=== PATIENT | female | born 1940 | race Caucasian/White ===

== ENCOUNTER 2017-07-03 16:40 | Inpatient (IN) | payer OTHER ==
[~2017-07-03] VITALS: Ht 160 cm; Wt 80.0 kg
[~2017-07-03 16:40] MED LIST: CLTP PO; CPR500 PO; DLN100 PO; FLV1 PO; MULT-506 PO; POTA-327 PO; PROM25TA PO; SERT25TA PO
--- NOTE | 2017-07-03 17:07 | EMERGENCY ROOM VISIT NOTE ---
History First contact with patient: 17:05 Chief Complaint: HIP PAIN Stated Complaint: FALL, HIP PAIN History of Present Illness The patient is a 76 year old female who presents to the Emergency Room with complaints of right hip pain Was in the garage and fell backwards upon poor balance while taking the two stairs up to her kitchen at ~2pm She denies prior dizziness, lightheadedness, SOB, CP, palpitations Upon falling, she felt immediate pain in her right hip, and was unable to get back up. She lay on the ground yelling for ~1 hour. The dragged herself over on the concrete, managed to open her door before yelling some more, at which point her neighbour heard her and called for help. She lives alone with her dog She denies LOC, but is unsure if she hit her head when she fell backwards. She denies head pain currently. 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 She also has bilateral knee arthritis, for this she was commenced on a prednisone taper yesterday Review of Systems See HPI for pertinent positives and negatives. A total of ten systems were reviewed and were otherwise negative. Past Medical/Surgical History Medical Problems: (1) Arthritis of both knees (2) Fracture of right hip (3) History of Guillain-[place] syndrome (4) Neuropathy involving both lower extremities Social History Smoking Status: Never Smoker Smokeless Tobacco Use: No Alcohol Use: none Drug Use: none Marital Status: Housing Status: lives alone Current/Historical Medications Scheduled Cholecalciferol (Vitamin D), 1 TAB PO DAILY Cranberry (Vaccinium Macrocarp (Cranberry), 1 TAB PO DAILY Cyanocobalamin (Vitamin B-12), 1 TAB PO DAILY Ferrous Sulfate (Iron), 1 TAB PO DAILY Potassium Chloride (Micro-K Ext Rel), 10 MEQ PO DAILY Prednisone (Prednisone), 20 MG PO DAILY Prednisone Tab (Prednisone), 30 MG PO DAILY Prednisone Tab (Prednisone), 10 MG PO DAILY Physical Exam Vital Signs Date Time Temp Pulse Resp B/P (MAP) Pulse Ox O2 Delivery O2 Flow Rate FiO2 07/03/17 19:58 92 20 119/67 95 Room Air 07/03/17 19:14 90 07/03/17 19:01 90 20 121/73 93 Room Air 07/03/17 16:52 36.8 87 20 130/89 95 Room Air Physical Exam GENERAL: alert, lying in bed, emotionally distressed, non-toxic HEAD: NC/AT EYES: PERRL, EOMI, normal conjunctiva NECK: supple, no nuchal rigidity, no adenopathy, non-tender LUNGS: Clear to auscultation. Normal chest wall mechanics, good air entry. No crepitations, crackles, or wheezes HEART: no murmurs, S1 and S2 normal CHEST: No reproducible tenderness. ABDOMEN: abdomen soft, non-tender, normo-active bowel sounds, no masses, no rebound or guarding. SKIN: Warm, pink, dry. No erythema, rashes, or bruising. UPPER EXTREMITIES: upper extremities are grossly normal. Strength 5/5 LOWER EXTREMITIES: No pitting edema. Calves non tender. Left leg WNL. Extreme pain/limited ability to lift right leg. Sensation in tact. Pedal pulses present NEURO: Alert, Ox3. No focal deficits. Normal sensorium, cranial nerves II-XII grossly intact, normal speech. PSYCH: Mood and affect appropriate. Medical Decision & Procedures ER Provider Diagnostic Interpretation: CT HEAD WITHOUT CONTRAST (CT) CLINICAL HISTORY: Head pain status post trauma COMPARISON STUDY: No previous studies for comparison. TECHNIQUE: Axial CT of the brain is performed from the vertex to the skull base. IV contrast was not administered for this examination. A dose lowering technique was utilized adhering to the principles of ALARA. CT DOSE: 623.48 mGy.cm FINDINGS: No intra or extra-axial mass lesions are visualized. There is no CT evidence of acute cortical infarction. There is no evidence of midline shift. There is no acute hemorrhage. No calvarial fractures are visualized. There are postsurgical changes of a left parietal craniotomy. There is left frontoparietal encephalomalacia at the vertex. There are patchy white matter hypodensities likely on a small vessel basis. There is no evidence of pathologic ventricular dilatation. Inflammatory changes are present within the sphenoid sinus. IMPRESSION: 1. Postsurgical changes of a left parietal craniotomy with subjacent encephalomalacia 2. Inflammatory changes within the sphenoid sinus 3. No acute intracranial findings CHEST ONE VIEW PORTABLE CLINICAL HISTORY: fall trauma COMPARISON STUDY: 12/29/2007 FINDINGS: Mild cardiomegaly. Several calcified granulomas as well as hilar nodes. No focal infiltrate. IMPRESSION: Chronic change. No acute process. PELVIS 1 OR 2 VIEW ROUTINE CLINICAL HISTORY: Fall trauma COMPARISON: None. DISCUSSION: Intertrochanteric fracture right hip. Slice appear migration right femoral shaft. No evidence of dislocation. Mild degenerative change of all additional bony structures. IMPRESSION: Intertrochanteric fracture right hip with slight superior migration right femoral shaft RIGHT FEMUR 2 VIEWS ROUTINE CLINICAL HISTORY: fall on r hip Right trauma COMPARISON: None. DISCUSSION: Intertrochanteric fracture right hip. Slice appear migration femoral shaft. No evidence for dislocation. The remainder the femur is unremarkable. Moderate degenerative change right knee. Moderate soft tissue edema IMPRESSION: Intertrochanteric fracture right hip with slight superior migration right femoral shaft Laboratory Results 07/03/17 18:51 Red Blood Count 3.75, Mean Corpuscular Volume 94.4, Mean Corpuscular Hemoglobin 31.5, Mean Corpuscular Hemoglobin Concent 33.3, Mean Platelet Volume 9.4, Neutrophils (%) (Auto) 88.6, Lymphocytes (%) (Auto) 6.2, Monocytes (%) (Auto) 4.6, Eosinophils (%) (Auto) 0.0, Basophils (%) (Auto) 0.2, Neutrophils # (Auto) 10.04, Lymphocytes # (Auto) 0.70, Monocytes # (Auto) 0.52, Eosinophils # (Auto) 0.00, Basophils # (Auto) 0.02 07/03/17 18:51 Test 07/03/17 18:51 White Blood Count 11.33 K/uL (4.8-10.8) Red Blood Count 3.75 M/uL (4.2-5.4) Hemoglobin 11.8 g/dL (12.0-16.0) Hematocrit 35.4 % (37-47) Mean Corpuscular Volume 94.4 fL (80-100) Mean Corpuscular Hemoglobin 31.5 pg (25-34) Mean Corpuscular Hemoglobin Concent 33.3 g/dl (32-36) Platelet Count 283 K/uL (130-400) Mean Platelet Volume 9.4 fL (7.4-10.4) Neutrophils (%) (Auto) 88.6 % Lymphocytes (%) (Auto) 6.2 % Monocytes (%) (Auto) 4.6 % Eosinophils (%) (Auto) 0.0 % Basophils (%) (Auto) 0.2 % Neutrophils # (Auto) 10.04 K/uL (1.4-6.5) Lymphocytes # (Auto) 0.70 K/uL (1.2-3.4) Monocytes # (Auto) 0.52 K/uL (0.11-0.59) Eosinophils # (Auto) 0.00 K/uL (0-0.5) Basophils # (Auto) 0.02 K/uL (0-0.2) RDW Standard Deviation 47.2 fL (36.4-46.3) RDW Coefficient of Variation 13.6 % (11.5-14.5) Immature Granulocyte % (Auto) 0.4 % Immature Granulocyte # (Auto) 0.05 K/uL (0.00-0.02) Prothrombin Time 10.2 SECONDS (9.0-12.0) Prothromb Time International Ratio 1.0 (0.9-1.1) Activated Partial Thromboplast Time 24.3 SECONDS (21.0-31.0) Partial Thromboplastin Ratio 0.9 Anion Gap 5.0 mmol/L (3-11) Est Creatinine Clear Calc Drug Dose 58.8 ml/min Estimated GFR () 82.3 Estimated GFR (Non- 71.0 BUN/Creatinine Ratio 17.4 (10-20) Calcium Level 8.6 mg/dl (8.5-10.1) Medications Administered Medications (Trade) Dose Ordered Sig/Nicanor Route Start Time Stop Time Status Last Admin Dose Admin Sodium Chloride 500 ml @ 75 mls/hr [id number] ONCE IV 07/03/17 17:25 07/04/17 00:04 07/03/17 18:01 75 MLS/HR Hydromorphone HCl (Dilaudid Inj) 0.5 mg Q20M PRN IV 07/03/17 17:30 07/17/17 17:29 07/03/17 19:11 0.5 MG Ondansetron HCl (Zofran Inj) 4 mg NOW ONCE IV 07/03/17 19:05 07/03/17 19:06 DC 07/03/17 19:11 4 MG Pantoprazole Sodium (Protonix Tab) 40 mg NOW STAT PO 07/03/17 21:14 8/10/17 21:15 DC 07/03/17 21:22 40 MG ECG Indication: other (trauma) Rate (beats per minute): 81 Rhythm: normal sinus Findings: nonspecific-ST abn (When compared with ECG of 29-DEC-2007 15:23, Nonspecific T wave abnormality now evident in Inferior leads), PVC ED Course 1707: The patient was evaluated in room C5. A complete history and physical exam was performed. 1725: Labs and imaging studies ordered. IV analgesia ordered. 1740: Patient reassessed. Distressed post movement required to get imaging. Had vomiting, and pain severe. Instructed nursing care to administer another dose of hydromorphone. Updated patient and daughter re: imaging results. 180: Spoke to Alvaro Carr. Will assess and admit. 1814: Reassessed patient. Patient feeling better. Sitting up in bed, more lively. Confirmed with patient previous following with/preference for orthopedics. Consult placed 1821: Spoke to Dr. Lyman, [facility]. Will assess for surgery. Medical Decision Prior records/ancillary studies reviewed. Triage Nursing notes reviewed. Additional history obtained from patient. The patient's history was concerning for traumatic injury Differential diagnosis: Etiologies such as fracture, dislocation, intra-abdominal, pneumothorax, intrathoracic , intracranial, neurologic, as well as other traumatic pathologies were entertained. Physical examination findings: As above. The patients vitals were within acceptable range. ER treatment provided: IV Normal Saline hydration, 1000 mL. IV Dilaudid + IV Zofran On reassessment the patient felt better. Vital signs were stable. Diagnostic interpretation by me: A 12 lead ECG revealed no emergent pathology. The labs revealed mildly elevated WBC, mild anemia. Coags and BMP WNL Imaging studies showed no acute intracranial findings, no acute chest pathology , but intertrochanteric fracture of right hip with slight superior migration of right femoral shaft Consultation: This appears to be consistent with traumatic fracture. By the evaluation outlined above, other etiologies such as intra-abdominal, pneumothorax, pulmonary contusion, hemothorax, intracranial, neurologic,as well as others were deemed relatively unlikely. [facility] Dr. Lyman, [facility]. The case was discussed and diagnostics were reviewed. The patient will be admitted and assessed further by both physicians. The patient and her daughter were informed about the findings as listed above. All questions were answered and they are pleased with management of care thus far. Impression Primary Impression: Fracture of right hip Departure Information Dispostion Being Evaluated By Hospitalist Condition FAIR Referrals Indu Ambrocio M.D. (PCP) Patient Instructions My [facility] Resident Tracking Resident Involvement: Resident Care Provided Care Provided: Adult ED
[2017-07-03] MEDS ORDERED: FERR1TAB23 PO (17:12)
[2017-07-03] MEDS ORDERED: PRED10TA PO (17:12)
[2017-07-03] MEDS ORDERED: POTA10CA28 PO (17:12)
[2017-07-03] MEDS ORDERED: CHOL100010 PO (17:12)
[2017-07-03] MEDS ORDERED: CRAN1TAB PO (17:12)
[2017-07-03] MEDS ORDERED: CYAN100T PO (17:12)
[2017-07-03] MEDS ORDERED: SODIUM CHLORIDE 0.9% 1000ML 500 ML IV ONE (17:25)
[2017-07-03] MEDS ORDERED: HYDROmorphone INJ 0.5 MG/0.5 ML SYR IV PRN (17:30)
[2017-07-03] MEDS ORDERED: ACETAMINOPHEN 500 MG TAB PO PRN (17:30)
[2017-07-03] MEDS: HYDROmorphone INJ 0.5 MG/0.5 ML SYR IV PRN ×2 (18:01→19:11)
--- NOTE | 2017-07-03 18:01 | EMERGENCY ROOM VISIT NOTE ---
ED Visit Note First contact with patient: 17:05 Resident Physician Supervision Note: I interviewed and examined the patient. Discussed with Dr. Katz and agree with findings and plan as documented in the note. Documented By: Willard Caputo Current/Historical Medications Scheduled Cholecalciferol (Vitamin D), 1 TAB PO DAILY Cranberry (Vaccinium Macrocarp (Cranberry), 1 TAB PO DAILY Cyanocobalamin (Vitamin B-12), 1 TAB PO DAILY Ferrous Sulfate (Iron), 1 TAB PO DAILY Potassium Chloride (Micro-K Ext Rel), 10 MEQ PO DAILY Prednisone (Prednisone), 20 MG PO DAILY Prednisone Tab (Prednisone), 30 MG PO DAILY Prednisone Tab (Prednisone), 10 MG PO DAILY Allergies Coded Allergies: Sulfa Drugs (Verified Allergy, Mild, 12/29/09) Vital Signs Date Time Temp Pulse Resp B/P (MAP) Pulse Ox O2 Delivery O2 Flow Rate FiO2 07/03/17 16:52 36.8 87 20 130/89 95 Room Air Laboratory Results Test 07/03/17 17:25 Departure Information Referrals Indu Ambrocio M.D. (PCP) Patient Instructions My [facility]
--- NOTE | 2017-07-03 18:31 | DIAGNOSTIC IMAGING REPORT ---
CT HEAD WITHOUT CONTRAST (CT) CLINICAL HISTORY: Head pain status post trauma COMPARISON STUDY: No previous studies for comparison. TECHNIQUE: Axial CT of the brain is performed from the vertex to the skull base. IV contrast was not administered for this examination. A dose lowering technique was utilized adhering to the principles of ALARA. CT DOSE: 623.48 mGy.cm FINDINGS: No intra or extra-axial mass lesions are visualized. There is no CT evidence of acute cortical infarction. There is no evidence of midline shift. There is no acute hemorrhage. No calvarial fractures are visualized. There are postsurgical changes of a left parietal craniotomy. There is left frontoparietal encephalomalacia at the vertex. There are patchy white matter hypodensities likely on a small vessel basis. There is no evidence of pathologic ventricular dilatation. Inflammatory changes are present within the sphenoid sinus. IMPRESSION: 1. Postsurgical changes of a left parietal craniotomy with subjacent encephalomalacia 2. Inflammatory changes within the sphenoid sinus 3. No acute intracranial findings Electronically signed by: Bimal Taylor M.D. 07/03/2017 6:29 PM Dictated Date/Time: 07/03/2017 6:27 PM
--- NOTE | 2017-07-03 18:54 | DIAGNOSTIC IMAGING REPORT ---
CHEST ONE VIEW PORTABLE CLINICAL HISTORY: fall trauma COMPARISON STUDY: 12/29/2007 FINDINGS: Mild cardiomegaly. Several calcified granulomas as well as hilar nodes. No focal infiltrate. IMPRESSION: Chronic change. No acute process. The above report was generated using voice recognition software. It may contain grammatical, syntax or spelling errors. Electronically signed by: Pratik Hines M.D. 07/03/2017 6:52 PM Dictated Date/Time: 07/03/2017 6:52 PM
--- NOTE | 2017-07-03 18:55 | DIAGNOSTIC IMAGING REPORT ---
RIGHT FEMUR 2 VIEWS ROUTINE CLINICAL HISTORY: fall on r hip Right trauma COMPARISON: None. DISCUSSION: Intertrochanteric fracture right hip. Slice appear migration femoral shaft. No evidence for dislocation. The remainder the femur is unremarkable. Moderate degenerative change right knee. Moderate soft tissue edema IMPRESSION: Intertrochanteric fracture right hip with slight superior migration right femoral shaft The above report was generated using voice recognition software. It may contain grammatical, syntax or spelling errors. Electronically signed by: Pratik Hines M.D. 07/03/2017 6:54 PM Dictated Date/Time: 07/03/2017 6:53 PM
--- NOTE | 2017-07-03 18:56 | DIAGNOSTIC IMAGING REPORT ---
PELVIS 1 OR 2 VIEW ROUTINE CLINICAL HISTORY: Fall trauma COMPARISON: None. DISCUSSION: Intertrochanteric fracture right hip. Slice appear migration right femoral shaft. No evidence of dislocation. Mild degenerative change of all additional bony structures. IMPRESSION: Intertrochanteric fracture right hip with slight superior migration right femoral shaft The above report was generated using voice recognition software. It may contain grammatical, syntax or spelling errors. Electronically signed by: Pratik Hines M.D. 07/03/2017 6:54 PM Dictated Date/Time: 07/03/2017 6:54 PM
[2017-07-03] MEDS ORDERED: ONDANSETRON INJ 2 MG/ML 2 ML VIAL IV ONE (19:05)
[2017-07-03 19:07] LABS: BASO % 0.2 %; BASO ABS # 0.02 K/uL (0-0.2); COMPLETE YES; HEMATOCRIT 35.4 % (37-47); IG% 0.4 %; LYMPH % 6.2 %; MEAN CELL VOLUME 94.4 fL (80-100); MEAN CORPUSCULAR HEMOGLOBIN 31.5 pg (25-34); MEAN CORPUSCULAR HGB CONC 33.3 g/dl (32-36); MEAN PLATELET VOLUME 9.4 fL (7.4-10.4); MONO % 4.6 %; NEUT % 88.6 %; PLATELET COUNT 283 K/uL (130-400); RED BLOOD COUNT 3.75 M/uL (4.2-5.4); WHITE BLOOD COUNT 11.33 K/uL (4.8-10.8)
[2017-07-03 19:24] LABS: PARTIAL THROMBOPLASTIN RATIO 0.9; PROTHROMBIN TIME (PATIENT) 10.2 SECONDS (9.0-12.0)
[2017-07-03 19:25] LABS: BUN/CREATININE RATIO 17.4 (10-20); CALCIUM 8.6 mg/dl (8.5-10.1); CREATININE 0.81 mg/dl (0.60-1.20)
[2017-07-03] MEDS ORDERED: ONDANSETRON INJ 2 MG/ML 2 ML VIAL IV PRN (20:30)
[2017-07-03] MEDS ORDERED: MoRPHine SULFATE 2 MG/ML CARP IV PRN (20:30)
[2017-07-03] MEDS ORDERED: POLYETHYLENE (MIRALAX) 17 GM PACK PO PRN (20:30)
[2017-07-03] MEDS ORDERED: BISACODYL 10 MG SUPP PR PRN (20:30)
[2017-07-03] MEDS ORDERED: SOD PHOSPHATE/SOD BIPHOSPHATE ENEMA 132 ML BTL PR PRN (20:30)
[2017-07-03] MEDS ORDERED: MAGNESIUM HYDROXIDE SUSP 30 ML UDC PO PRN (20:30)
[2017-07-03] MEDS ORDERED: NALOXONE HCL 0.4 MG/1 ML VIAL/CARP IV PRN (20:30)
[2017-07-03] MEDS: DOCUSATE SODIUM/SENNA 50/8.6MG TAB PO SCH (21:00)
[2017-07-03] MEDS ORDERED: PANTOprazole SOD 40 MG TAB PO STA (21:14)
[2017-07-03 21:36] VITALS: Ht 160 cm; Wt 80.0 kg
[2017-07-03 21:45] VITALS: BP 131/68; PULSE 92; TEMP 36.9; O2SAT 95
--- NOTE | 2017-07-03 21:57 | HISTORY & PHYSICAL EXAMINATION ---
DATE OF ADMISSION: 07/03/2017 PRIMARY CARE PHYSICIAN: Dr. Ambrocio CHIEF COMPLAINT: Status post mechanical fall with fracture of the right hip. HISTORY OF PRESENT COMPLAINT: She is a 76-year-old female without a significant past medical history. Apparently while getting out of her garage to the kitchen, she missed a step and she fell backwards, hitting her bottom and head to some extent. She was not able to get up from there and she was brought in by the ambulance. She was noted to have an intertrochanteric fracture of the right femur. From that point, she was admitted to the medical floor and ortho consultation was taken for probable surgery down the line. When asking questions, she denies to have any headache, any blurred vision, any palpitations, any numbness, tingling or any weakness involving any side of the body before the fall. No recent history of fever, chills or rigors. No cough or phlegm. No chest pain or palpitation. No abdominal pain, nausea or vomiting. She has a history of Guillain-[place] about 17 years back and from that she does have minor ambulatory dysfunction, but nothing significant. She does not have any shortness of breath for usual day-to-day activities. PAST MEDICAL HISTORY: Significant for osteoarthritis, iron deficiency anemia and remote history of epilepsy, but nothing is causing any problem. PAST SURGICAL HISTORY: Biopsy of the breast in 2000 for right breast carcinoma. FAMILY HISTORY: Significant in that her mom had diabetes. SOCIAL HISTORY: She is a . She lives alone. She does not smoke. She drinks very occasionally and she has been ambulant. ALLERGIES: TO SULFA DRUGS. MEDICATIONS: She has been on potassium chloride 10 mEq daily. She was started with prednisone reducing course for chronic back pain. Vitamin D [id number] 1 tablet daily, cranberry 1 tablet daily, vitamin B12 one tablet daily and ferrous sulfate [id number] 1 tablet daily. REVIEW OF SYSTEMS: Unremarkable except for those mentioned in the history of present complaint. PHYSICAL EXAMINATION: GENERAL: On examination in the Emergency Room, she was not having any acute distress. VITAL SIGNS: Temperature 36.8, pulse of 92, blood pressure 192/67 and saturation 95% on room air. HEENT: Unremarkable. NECK: Supple. No JVD, no bruit. CHEST: Clear to auscultation bilaterally. HEART: S1, S2 regular, no murmur. ABDOMEN: Soft, benign, nontender, no organomegaly. Bowel sounds present. EXTREMITIES: Negative for any edema. MUSCULOSKELETAL SYSTEM: Did not show any acute arthritis; but right lower extremity was not examined, any movement of the right hip causes pain. There is no significant deformity of the right lower extremities. CENTRAL NERVOUS SYSTEM: She is alert, awake, oriented x3 and no focal sensory and/or motor deficit appreciated. LABORATORY DATA: Noted today; white count was 11.3, H&H 11.8/35.4 and platelets was 283. Sodium 141, potassium 4.0, chloride 111, carbon dioxide 25, BUN 14, creatinine 0.81. Random glucose 140, calcium 8.6. PT/INR unremarkable. EKG; was in sinus rhythm, rate of 81 per minute, normal axis and no significant ST-T wave abnormalities. only one PVC noted. Chest x-ray; reported as chronic changes, but no acute process. X-ray of the femur; showed intertrochanteric fracture of the right hip with slight superior migration of right femoral shaft. CT of the head; post-surgical changes of the left parietal craniotomy with encephalomalacia, inflammatory changes within the sphenoid sinus. No acute intracranial finding. X-ray of the pelvis; intertrochanteric fracture of the right hip as mentioned earlier. IMPRESSION AND PLAN: 1. Intertrochanteric fracture of the right hip status post mechanical fall. The patient will be admitted to the medical floor. Dr. Fox the orthopedic surgeon was consulted; most likely she will be going for surgery tomorrow morning. There is no contraindication for surgery at this time. 2. Chronic back pain with recent exacerbation. She has been on prednisone, taper dose recently. We will hold prednisone right now and start following surgery. She does not have any acute symptoms at this time. 3. Osteoarthritis. She will have Tylenol for pain right now and she may need stronger pain medications including Percocet during this admission. 4. Gastrointestinal prophylaxis, Protonix. 5. Deep venous thrombosis prophylaxis with SCDs and further DVT prophylaxis will depend as per ortho. 6. Code status. She will be a full code. In my clinical judgment, the beneficiary meets criteria as per CMS for 2 midnights' stay in the hospital. MEGAN
[2017-07-03] MEDS: LACTATED RINGER'S 1000ML 1,000 ML IV SCH (22:11)
[2017-07-03] MEDS: OXYCODONE HCL IR 5 MG TAB (IMMEDIATE RELEASE) PO PRN (22:19)
[2017-07-03 22:33] LABS: URINE APPEARANCE CLEAR (CLEAR); URINE BILIRUBIN NEG (NEG); URINE COLOR YELLOW; URINE EPITHELIAL CELL AUTO >30 /lpf (0-5); URINE NITRITE POS (NEG); UROBILINOGEN NEG (NEG); ZZURINE CULT IF INDIC CATH YES
--- NOTE | 2017-07-03 22:35 | Anesthesiology Progress Note ---
Anesthesia Progress Note Date of Service Jul 03, 2017. Progress Notes Ms. Andersen is scheduled for a right hip troch nail 07/04/[address] Fox. She is allergic to sulfa. 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 At time of workup for GB, she was found to have a brain tumor and underwent a successful craniotomy with tumor resection (found to be benign). She only has minor ambulatory dysfunction currently. EKG showed SR with PVC's but otherwise normal. Labs WNL. Patient has MP 2 with full dentures. She was consented for GA vs SAB with sedation. While patient's with guillain-barre have undergone neuraxial anesthesia without adverse effects, I told patient ultimate decision regarding anesthetic will be made with anesthesia team assigned to her case tomorrow. All questions were answered.
[2017-07-03 22:36] LABS: MANUAL MICROSCOPIC REQUIRED? NO; REVIEW REQ? YES
[2017-07-03] MEDS ORDERED: ZOLPIDEM TARTRATE 5 MG TAB PO PRN (23:15)
[2017-07-04] VITALS (8 sets, daily range): BP systolic 101–123; BP diastolic 47–77; PULSE 80–88; TEMP 36.7–37.2; O2SAT 90–96
[2017-07-04] MEDS: OXYCODONE HCL IR 5 MG TAB (IMMEDIATE RELEASE) PO PRN ×2 (03:02→07:47)
[2017-07-04] MEDS ORDERED: CEFAZOLIN 2000 MG/60 ML D5W IV SCH (06:00)
[2017-07-04] MEDS ORDERED: CEFAZOLIN SOD 1000MG/55 ML D5W IV SCH (06:00)
[2017-07-04] MEDS ORDERED: CEFAZOLIN IV 3,000 MG in DEXTROSE 5% 50ML 50 ML IV SCH (06:00)
[2017-07-04 07:07] LABS: HEMATOCRIT 33.8 % (37-47); MEAN CELL VOLUME 95.2 fL (80-100); MEAN CORPUSCULAR HEMOGLOBIN 30.7 pg (25-34); MEAN CORPUSCULAR HGB CONC 32.2 g/dl (32-36); MEAN PLATELET VOLUME 9.4 fL (7.4-10.4); PLATELET COUNT 251 K/uL (130-400); RED BLOOD COUNT 3.55 M/uL (4.2-5.4); WHITE BLOOD COUNT 7.78 K/uL (4.8-10.8)
[2017-07-04 07:36] LABS: CREATININE 0.7 mg/dl (0.60-1.20)
[2017-07-04 07:37] LABS: BUN/CREATININE RATIO 16.7 (10-20); CALCIUM 8.3 mg/dl (8.5-10.1); POTASSIUM 3.8 mmol/L (3.5-5.1)
[2017-07-04] MEDS: FERROUS SULFATE 325 MG TAB PO SCH ×2 (08:00→09:00)
[2017-07-04] MEDS ORDERED: KETOROLAC TROMETHAMINE 15 MG/ML VIAL IV PRN (08:15)
[2017-07-04] MEDS: POTASSIUM CHLORIDE 10 MEQ TABCR PO SCH (09:00)
[2017-07-04] MEDS: PANTOprazole SOD 40 MG TAB PO SCH (09:00)
[2017-07-04] MEDS ORDERED: NON-FORMULARY MEDICATION (Cranberry (Vaccinium Macrocarp (Cranberry) 1 TAB) PO SCH (09:00)
[2017-07-04] MEDS ORDERED: NURSING VERBAL MED ORDER ONE (09:30)
--- NOTE | 2017-07-04 09:40 | CONSULTATION REPORT ---
DATE OF CONSULTATION: 07/04/2017 DATE OF CONSULTATION: 07/04/2017 REASON FOR CONSULT: Right hip pain. HISTORY OF PRESENT ILLNESS: The patient is a 76-year-old white female who states that she was walking into her garage with her dog when she ended up losing her balance and fell backwards onto her right side and buttock. She had immediate pain in her right hip and she was unable to ambulate and was very difficult trying to crawl. She states that she was trying to reach her phone and/or her garage door closer mechanic, but could not do so. She called for help for quite a long time of which she feels to be a little bit over an hour until someone found her. She was brought to the Emergency Room. She was seen by the staff and x-rays were taken and was found to have an intertrochanteric right hip fracture with subtrochanteric extension. She was admitted under medicine service and we have now been consulted to see her for her hip fracture. PAST MEDICAL HISTORY: Remote history of epilepsy with no recent seizures, breast carcinoma, low back pain, osteoarthritis of both knees, remote history of a Guillain-[place] syndrome approximately 17 years ago, history of benign brain tumor, mild ambulatory dysfunction, iron deficiency anemia. PAST SURGICAL HISTORY: Craniotomy in the past for benign tumor, biopsy right breast. FAMILY HISTORY: Diabetes mellitus. SOCIAL HISTORY: The patient is a , lives alone with family nearby. She does not use tobacco and uses alcohol rarely. ALLERGIES: SULFA DRUGS. HOME MEDICATIONS: Vitamin D 1 tab p.o. daily, cranberry 1 tab p.o. daily, vitamin B12 1 tab p.o. daily, iron sulfate 1 tab p.o. daily, Micro-K extended release 10 mEq p.o. daily, prednisone which sounds like Medrol Dosepak which was given to her recently and she states that she has only had 2 tablets out of the pack at this time for her arthritis in her knees. REVIEW OF SYSTEMS: As per admitting history and physical. PHYSICAL EXAMINATION: VITAL SIGNS: This morning temp 36.8, pulse 81, respirations 20, BP 118/70, pulse ox 93 on room air. GENERAL: The patient is a well-developed, well-nourished white female who is alert and oriented x3 in mild amount of distress due to right hip pain and also arthritic left knee pain. She is pleasant and cooperative and answers all questions appropriately. EXTREMITIES: Focusing on her right hip the right lower extremity is shortened and externally rotated compared to the left. No attempts were made to move the right hip due to fracture. She has some mild tenderness over the right knee which she attributes to arthritis of which she has in both knees. She has good ankle range of motion at this time and there is no noted ecchymosis noted on the right lower extremity. Left lower extremity essentially within normal limits. She has limited range of motion at this time due to left knee pain which she states is due to arthritis. She states she did not fall on the left knee and has been dealing with arthritis in her knees for some time, otherwise left hip is nontender. Left ankle is nontender and both have range of motion within normal limits. Upper extremities are benign at this time and are within normal limits for range of motion. They are nontender at the shoulders, elbows and wrists. NECK: Nontender on palpation and she has good range of motion of the neck at this time. She denies any thoracic or overt lumbar pain at this time. Distal pulses are equal bilaterally of the upper and lower extremities. There are no gross motor or sensory deficits seen at this time. ASSESSMENT: Right intertrochanteric hip fracture. PLAN: At this point in time, she will be added onto the surgical schedule for right trochanteric femoral nailing by Dr. Fox. I will discuss the possibility with Dr. Fox of doing a left knee injection with steroid to help alleviate her left knee pain which could detract from her physical therapy having the right hip fracture. She will be putting most of her weight on her left side and will be difficult with her left knee pain. She states that she has had injections of her knees in the past and the last time was in possibly February or March and that they do work for a few months. We will go ahead and get some x-rays of her knees at this time portable at the bedside and treat the osteoarthritis accordingly.
[2017-07-04] MEDS ORDERED: CYANOCOBALAMIN 500 MCG TAB (VIT B-12) PO ONE (10:00)
[2017-07-04] MEDS ORDERED: CHOLECALCIFEROL 1000 INTER.UNIT TAB PO ONE (10:00)
--- NOTE | 2017-07-04 10:13 | DIAGNOSTIC IMAGING REPORT ---
LEFT KNEE 1 OR 2 VIEWS ROUTINE CLINICAL HISTORY: Left Knee Pain pain COMPARISON: None. DISCUSSION: Considerable degenerative change all major joint compartments. Irregularity of the articular services on a degenerative basis. Mild reactive osteophytic change. No significant joint effusion. Cortical margins are intact. There is no evidence for soft tissue swelling. IMPRESSION: Severe degenerative change all major joint compartments. No acute bony abnormality. The above report was generated using voice recognition software. It may contain grammatical, syntax or spelling errors. Electronically signed by: Pratik Hines M.D. 07/04/2017 10:11 AM Dictated Date/Time: 07/04/2017 10:11 AM
--- NOTE | 2017-07-04 10:13 | DIAGNOSTIC IMAGING REPORT ---
RIGHT KNEE 1 OR 2 VIEWS ROUTINE CLINICAL HISTORY: Right knee pain COMPARISON: None. DISCUSSION: There are advanced osteoarthritic changes with marked narrowing of the medial joint compartment. There are no acute fractures. There are small dorsal patellar spurs. There is a mild varus deformity. IMPRESSION: 1. No acute fractures 2. Osteoarthritic changes with marked narrowing of the medial joint compartment Electronically signed by: Bimal Taylor M.D. 07/04/2017 10:11 AM Dictated Date/Time: 07/04/2017 10:10 AM
[2017-07-04] MEDS: LACTATED RINGER'S 1000ML 1,000 ML IV SCH (10:39)
--- NOTE | 2017-07-04 12:54 | History & Physical Bridge Note ---
H&P Re-Evaluation Bridge Note: I have examined the patient, reviewed the History & Physical and in the interval since the performance of the History & Physical I have noted the following changes of clinical significance: No changes noted
[2017-07-04] MEDS ORDERED: MIDAZOLAM HCL 1 MG/ML 2ML VIAL ONE (13:06)
[2017-07-04] MEDS ORDERED: FENTANYL CITRATE INJ 50 MCG/1 ML 2 ML VIAL ONE (13:06)
[2017-07-04] MEDS ORDERED: METHYLPREDNISOLONE ACETATE 80 MG/ML VIAL ONE (15:41)
[2017-07-04] MEDS ORDERED: BUPIVACAINE 0.5 % 5 MG/1 ML MPF 30ML VIAL ONE (15:41)
[2017-07-04] MEDS ORDERED: HYDROmorphone INJ 2 MG/ML SYR/VIAL IV PRN (16:00)
[2017-07-04] MEDS ORDERED: ONDANSETRON INJ 2 MG/ML 2 ML VIAL IV PRN (16:00)
[2017-07-04] MEDS ORDERED: LABETALOL HCL IV 5 MG/ML 20ML IV PRN (16:00)
[2017-07-04] MEDS ORDERED: ATROPINE SULFATE 0.1 MG/ML 5ML SYR IV PRN (16:00)
[2017-07-04] MEDS ORDERED: LIDOCAINE HCL 2% 2 ML VIAL (20MG/ML) ONE (16:43)
[2017-07-04] MEDS ORDERED: DEXAMETHASONE SOD INJ 4 MG/ML VIAL ONE (16:43)
[2017-07-04] MEDS ORDERED: PROPOFOL IV EMULSION 10 MG/ML 20 ML VIAL IV ONE (16:43)
[2017-07-04] MEDS ORDERED: EpHEDrine SULFATE 50MG/5ML SYR ONE (16:43)
[2017-07-04] MEDS ORDERED: ONDANSETRON INJ 2 MG/ML 2 ML VIAL ONE (16:43)
--- NOTE | 2017-07-04 17:46 | [facility] Operative Report ---
Operative Report Operative Date Jul 04, 2017. Pre-Operative Diagnosis Right intertrochanteric hip fracture Post-Operative Diagnosis Right intertrochanteric hip fracture Procedure(s) Performed Bilateral knee steriod injections, Right Hip intertrochanteric Femoral Nailing Surgeon Dr. Ortiz Fox Product Safety Coordinator Surgeon(s) Gentry Miller PA-C Estimated Blood Loss 200 Findings As above Specimens none per surgeon Drains none Anesthesia Gen. Complication(s) None Disposition Recovery Room / PACU Indications 76-year-old female who sustained a fall onto the right hip. X-ray demonstrated displaced intertrochanteric fracture. Given the nature the injury I recommended reduction internal fixation with intramedullary nail. Risks benefits alternatives to surgery were discussed and she wishes to proceed. Description of Procedure Risks benefits and alternatives of surgery including but not limited to infection, DVT, PE, pain, stiffness, need for surgery, damage to blood vessels, damage to nerves or risks of anesthesia, were discussed with the patient and her family and they wished to proceed. Patient was identified in the laterality was confirmed and marked. They received a preoperative antibiotic. The patient was transferred to the fracture table. The operative limb was placed in traction and the well leg was placed in a well leg rivera that was well-padded. The arms were well-padded and placed out of the way of the surgical field. I confirmed reduction of the fracture with fluoroscopy with the patient's fracture table and made adjustments to fracture table alignment is necessary to reduce the fracture appropriately. The hip was then prepped and draped in the usual standard manner with ChloraPrep. I made a longitudinal incision proximal to the greater trochanter. I sharply incised through the skin and then used Bovie electrocautery to achieve hemostasis. I incised through the fascia and then bluntly dissected down to the tip of the greater trochanter. Under fluoroscopic guidance I placed a guide pin into the greater trochanter and ensured proper placement on both AP and lateral fluoroscopy views. Once I was satisfied with the position of the guide. I advanced this distally. I then overreamed with the 17 mm proximal reamer. I then placed a Synthes trochanteric fixation nail into position. The size of the nail was an intermediate sized nail. Then I placed the guide arm onto the nail insertion device made a stab incision more distally and then placed the drill guide for the helical blade. I adjusted the position of the nail as necessary to ensure that the guidepin was center center in the femoral head. Once I was satisfied with the position of the pin advanced it to the appropriate position of the femoral head. I then measured and then reamed the lateral cortex and then reamed down into the femoral head. I then inserted a size [address] I then locked the set screw proximally and then compressed the fracture. Then through a stab incision I placed a interlocking screw through the drill guide. I confirmed hardware placement and maintenance of reduction on AP and lateral fluoroscopy views. Wounds were then thoroughly irrigated. The fascia was closed with interrupted #1 Vicryl suture. Subcutaneous tissues closed with interrupted 2-0 Vicryl suture and the skin with ubaldo. Sterile dressings applied. All needle and sponge counts were correct at the end of the procedure the patient was transferred to the PACU in stable condition without apparent complication. The PA-C was necessary for assistance with procedure for assistance in positioning, prepping, draping, retraction and closure. I attest to the content of the Intraoperative Record and any orders documented therein. Any exceptions are noted below.
--- NOTE | 2017-07-04 17:51 | DIAGNOSTIC IMAGING REPORT ---
RIGHT HIP OR FILMS CLINICAL HISTORY: RT TROCH NAIL Right. COMPARISON STUDY: Pelvis 07/03/2017. FLUOROSCOPY TIME: 1 minute and 40 seconds.. FINDINGS: 4 fluoroscopic spot images submitted. Patient is status post a short proximal femoral intramedullary marion with an interlocking femoral neck pin for internal fixation of the intertrochanteric fracture. The hardware appears intact. The alignment is near-anatomic. IMPRESSION: Fluoroscopy provided for internal fixation of a right intertrochanteric hip fracture. Electronically signed by: Allen Renner M.D. 07/04/2017 5:49 PM Dictated Date/Time: 07/04/2017 5:48 PM
[2017-07-04] MEDS ORDERED: BISACODYL 10 MG SUPP PR PRN (18:00)
[2017-07-04] MEDS ORDERED: SOD PHOSPHATE/SOD BIPHOSPHATE ENEMA 132 ML BTL PR PRN (18:00)
[2017-07-04] MEDS ORDERED: ACETAMINOPHEN 325 MG TAB PO PRN (18:00)
[2017-07-04] MEDS ORDERED: MAGNESIUM HYDROXIDE SUSP 30 ML UDC PO PRN (18:00)
[2017-07-04] MEDS ORDERED: OXYCODONE HCL IR 5 MG TAB (IMMEDIATE RELEASE) PO PRN ×2 (18:00)
--- NOTE | 2017-07-04 18:29 | Anesthesiology Progress Note ---
Anesthesia Post Op Note Date & Time Jul 04, 2017 at 18:28 Vital Signs Pain Intensity: 0 Vital Signs Past 12 Hours Date Time Temp Pulse Resp B/P (MAP) Pulse Ox O2 Delivery O2 Flow Rate FiO2 07/04/17 18:10 84 13 110/56 93 Nasal Cannula 4 07/04/17 18:00 85 16 105/83 93 Nasal Cannula 4 07/04/17 17:50 77 15 113/56 96 Oxymask 10 07/04/17 17:43 36.6 77 16 118/55 95 Oxymask 10 07/04/17 09:08 93 Room Air 07/04/17 07:44 36.8 81 20 118/70 (86) 93 Room Air 07/04/17 07:30 Room Air Notes Mental Status: alert / awake / arousable, participated in evaluation Pt Amnestic to Procedure: Yes Nausea / Vomiting: adequately controlled Pain: adequately controlled Airway Patency, RR, SpO2: stable & adequate BP & HR: stable & adequate Hydration State: stable & adequate Anesthetic Complications: no major complications apparent
--- NOTE | 2017-07-04 19:58 | Progress Note ---
Internal Med Progress Note Date of Service: Jul 04, 2017. Provider Documentation: SUBJECTIVE: had repair for rt hip fx today doing well has minimum pain no other discomfort OBJECTIVE: Vital Signs-as noted below Exam: General-no sign of distress Eyes-sclera non icteric ENT-NAD Neck-no JVD Lungs-CTA Heart-regular S1/s2 Abdomen-Soft, non tender Extremities-s/p rt hip fx repair / Neuro-no focal deficit Lab data as noted below. ASSESSMENT & PLAN: 1. Intertrochanteric fracture of the right hip status post mechanical fall. s/p ORIF POD # 1 recovering well pain well controlled GERD : cont , Protonix. UTI : urine culture E Coli started on Cipro will need 5 days tx full code DVT PROPHYLAXIS scd and teds moderate to high risk post hip surgery will need pharmacological anticoagulation once ok by ortho DISPOSITION will need rehab PT/OT ordered social service consulted for discharge planning Vital Signs: Date Time Temp Pulse Resp B/P (MAP) Pulse Ox O2 Delivery O2 Flow Rate FiO2 07/04/17 20:30 36.7 88 18 108/54 (72) 95 Nasal Cannula 4.0 07/04/17 19:30 36.8 80 16 123/77 (92) 96 Nasal Cannula 4.0 07/04/17 19:02 94 Nasal Cannula 4.0 07/04/17 18:55 36.8 84 18 107/47 (67) 94 Nasal Cannula 4.0 07/04/17 18:41 Nasal Cannula 4.0 07/04/17 18:25 36.8 80 16 117/61 96 Nasal Cannula 4 07/04/17 18:10 84 13 110/56 93 Nasal Cannula 4 07/04/17 18:00 85 16 105/83 93 Nasal Cannula 4 07/04/17 17:50 77 15 113/56 96 Oxymask 10 07/04/17 17:43 36.6 77 16 118/55 95 Oxymask 10 07/04/17 09:08 93 Room Air 07/04/17 07:44 36.8 81 20 118/70 (86) 93 Room Air 07/04/17 07:30 Room Air 07/03/17 21:45 Room Air 07/03/17 21:45 36.9 92 18 131/68 (89) 95 Room Air 07/03/17 21:37 87 20 116/67 93 Room Air 07/03/17 21:36 Room Air Lab Results: Results Past 24 Hours Test 07/03/17 22:23 07/04/17 06:45 Range/Units Urine Color YELLOW Urine Appearance CLEAR CLEAR Urine pH 5.0 4.5-7.5 Urine Specific [place] 1.020 1.000-1.030 Urine Protein NEG NEG Urine Glucose (UA) NEG NEG Urine Ketones NEG NEG Urine Occult Blood NEG NEG Urine Nitrite POS NEG Urine Bilirubin NEG NEG Urine Urobilinogen NEG NEG Urine Leukocyte Esterase SMALL NEG Urine WBC (Auto) 5-10 0-5 /hpf Urine RBC (Auto) 0-4 0-4 /hpf Urine Hyaline Casts (Auto) 1-5 0-5 /lpf Urine Epithelial Cells (Auto) >30 0-5 /lpf Urine Bacteria (Auto) 4+ NEG Urine Renal Epithelial Cells 0-5 /lpf White Blood Count 7.78 4.8-10.8 K/uL Red Blood Count 3.55 4.2-5.4 M/uL Hemoglobin 10.9 12.0-16.0 g/dL Hematocrit 33.8 37-47 % Mean Corpuscular Volume 95.2 80-100 fL Mean Corpuscular Hemoglobin 30.7 25-34 pg Mean Corpuscular Hemoglobin Concent 32.2 32-36 g/dl RDW Standard Deviation 47.4 36.4-46.3 fL RDW Coefficient of Variation 13.6 11.5-14.5 % Platelet Count 251 130-400 K/uL Mean Platelet Volume 9.4 7.4-10.4 fL Sodium Level 142 136-145 mmol/L Potassium Level 3.8 3.5-5.1 mmol/L Chloride Level 109 98-107 mmol/L Carbon Dioxide Level 27 21-32 mmol/L Anion Gap 6.0 3-11 mmol/L Blood Urea Nitrogen 12 7-18 mg/dl Creatinine 0.70 0.60-1.20 mg/dl Est Creatinine Clear Calc Drug Dose 69.5 ml/min Estimated GFR () 98.2 Estimated GFR (Non- 84.8 BUN/Creatinine Ratio 16.7 10-20 Random Glucose 105 70-99 mg/dl Calcium Level 8.3 8.5-10.1 mg/dl Magnesium Level 2.0 1.8-2.4 mg/dl Microbiology Results 07/03/17 Urine Culture - Preliminary, Resulted Escherichia Coli
[2017-07-04] MEDS: CIPROFLOXACIN / D5W 400 MG in PREMIXED IN D5W 200 ML IV SCH (20:49)
[2017-07-04] MEDS ORDERED: DOCUSATE SODIUM/SENNA 50/8.6MG TAB PO SCH (21:00)
[2017-07-04] MEDS: DOCUSATE SODIUM/SENNA 50/8.6MG TAB PO SCH (21:05)
[2017-07-05] MEDS: LACTATED RINGER'S 1000ML 1,000 ML IV SCH ×2 (00:35→13:36)
[2017-07-05 03:26] VITALS: BP 98/54; PULSE 75; TEMP 37.1; O2SAT 90
[2017-07-05] MEDS: CIPROFLOXACIN / D5W 400 MG in PREMIXED IN D5W 200 ML IV SCH ×2 (05:38→19:02)
[2017-07-05 07:17] LABS: HEMATOCRIT 31.5 % (37-47); MEAN CELL VOLUME 95.5 fL (80-100); MEAN CORPUSCULAR HEMOGLOBIN 30.9 pg (25-34); MEAN CORPUSCULAR HGB CONC 32.4 g/dl (32-36); MEAN PLATELET VOLUME 9.2 fL (7.4-10.4); PLATELET COUNT 215 K/uL (130-400); WHITE BLOOD COUNT 10.54 K/uL (4.8-10.8)
[2017-07-05 07:48] LABS: CALCIUM 8.2 mg/dl (8.5-10.1); CREATININE 0.81 mg/dl (0.60-1.20); POTASSIUM 3.8 mmol/L (3.5-5.1)
[2017-07-05 07:52] VITALS: BP 92/55; PULSE 81; TEMP 37.4; O2SAT 92
[2017-07-05] MEDS: PANTOprazole SOD 40 MG TAB PO SCH (09:00)
--- NOTE | 2017-07-05 09:03 | Orthopedic Progress Note ---
Orthopedic Progress Note Date of Service Jul 05, 2017. Subjective Post OP Day: 1 Reports: feeling well, pain controlled w PO medications, Denies: complaints, chest pain, SOB, nausea / vomiting, light headedness, calf pain Additional Notes: most of her pain in right leg is in the knee, not much c/o pain in hip region. Objective calves soft nontender, N/V intact, dressing C/D/I, A&O x3, toes mobile Date Time Temp Pulse Resp B/P (MAP) Pulse Ox O2 Delivery O2 Flow Rate FiO2 07/05/17 07:52 37.4 81 20 92/55 (67) 92 Room Air 07/05/17 03:26 37.1 75 16 98/54 (69) 90 Room Air 07/04/17 23:17 37.2 85 16 104/58 (73) 90 Room Air 07/04/17 23:15 Room Air 07/04/17 21:30 37.1 85 18 101/63 (76) 95 Nasal Cannula 4.0 07/04/17 20:30 36.7 88 18 108/54 (72) 95 Nasal Cannula 4.0 07/04/17 19:30 36.8 80 16 123/77 (92) 96 Nasal Cannula 4.0 07/04/17 19:02 94 Nasal Cannula 4.0 07/04/17 18:55 36.8 84 18 107/47 (67) 94 Nasal Cannula 4.0 07/04/17 18:41 Nasal Cannula 4.0 07/04/17 18:25 36.8 80 16 117/61 96 Nasal Cannula 4 07/04/17 18:10 84 13 110/56 93 Nasal Cannula 4 07/04/17 18:00 85 16 105/83 93 Nasal Cannula 4 07/04/17 17:50 77 15 113/56 96 Oxymask 10 07/04/17 17:43 36.6 77 16 118/55 95 Oxymask 10 07/04/17 09:08 93 Room Air Laboratory Results 24 Hours: Test 07/05/17 07:06 Hematocrit 31.5 % Hemoglobin 10.2 g/dL Assessment & Plan Assessment: POD #1 s/p Bilateral knee steriod injections, Right Hip intertrochanteric Femoral Nailing -pain well controlled GERD : on Protonix. UTI : urine culture E Coli currently on Cipro x 5 days DISPOSITION: will need rehab Discharge Planning Discharge Planning: rehab hospital DVT Prophylaxis: TEDs, SCDs Therapy: Physical Therapy
[2017-07-05] MEDS: FERROUS SULFATE 325 MG TAB PO SCH (09:12)
[2017-07-05] MEDS: POTASSIUM CHLORIDE 10 MEQ TABCR PO SCH (09:12)
[2017-07-05] MEDS: CYANOCOBALAMIN 500 MCG TAB (VIT B-12) PO SCH (09:13)
[2017-07-05] MEDS: CHOLECALCIFEROL 1000 INTER.UNIT TAB PO SCH (09:13)
[2017-07-05 10:48] VITALS: BP 114/65
[2017-07-05 15:22] VITALS: BP 123/71; PULSE 91; TEMP 37.1; O2SAT 87
[2017-07-05 16:30] VITALS: O2SAT 92
--- NOTE | 2017-07-05 18:47 | Progress Note ---
Internal Med Progress Note Date of Service: Jul 05, 2017. Provider Documentation: SUBJECTIVE: sitting up on chair pain in hip much better denies of any discomfort OBJECTIVE: Vital Signs-as noted below Exam: General-no sign of distress Eyes-sclera non icteric ENT-NAD Neck-no JVD Lungs-CTA Heart-regular S1/s2 Abdomen-Soft, non tender Extremities-s/p rt hip fx repair / Neuro-no focal deficit Lab data as noted below. ASSESSMENT & PLAN: 1. Intertrochanteric fracture of the right hip status post mechanical fall. s/p ORIF POD # 2 recovering well pain well controlled doing well in PT/OT will need rehab GERD : cont , Protonix. UTI : urine culture E Coli started on Cipro changed to PO will need 5 days tx full code DVT PROPHYLAXIS scd and teds moderate to high risk post hip surgery started on Sub q heparin DISPOSITION will need rehab PT/OT ordered pt prefers to go to [facility] consulted for discharge planning Vital Signs: Date Time Temp Pulse Resp B/P (MAP) Pulse Ox O2 Delivery O2 Flow Rate FiO2 07/05/17 16:30 92 Room Air 07/05/17 15:22 37.1 91 14 123/71 (88) 87 Room Air 07/05/17 10:48 114/65 (81) 07/05/17 07:52 37.4 81 20 92/55 (67) 92 Room Air 07/05/17 07:40 Room Air 07/05/17 03:26 37.1 75 16 98/54 (69) 90 Room Air 07/04/17 23:17 37.2 85 16 104/58 (73) 90 Room Air 07/04/17 23:15 Room Air 07/04/17 21:30 37.1 85 18 101/63 (76) 95 Nasal Cannula 4.0 07/04/17 20:30 36.7 88 18 108/54 (72) 95 Nasal Cannula 4.0 Lab Results: Results Past 24 Hours Test 07/05/17 07:06 Range/Units White Blood Count 10.54 4.8-10.8 K/uL Red Blood Count 3.30 4.2-5.4 M/uL Hemoglobin 10.2 12.0-16.0 g/dL Hematocrit 31.5 37-47 % Mean Corpuscular Volume 95.5 80-100 fL Mean Corpuscular Hemoglobin 30.9 25-34 pg Mean Corpuscular Hemoglobin Concent 32.4 32-36 g/dl RDW Standard Deviation 48.1 36.4-46.3 fL RDW Coefficient of Variation 13.9 11.5-14.5 % Platelet Count 215 130-400 K/uL Mean Platelet Volume 9.2 7.4-10.4 fL Sodium Level 140 136-145 mmol/L Potassium Level 3.8 3.5-5.1 mmol/L Chloride Level 105 98-107 mmol/L Carbon Dioxide Level 29 21-32 mmol/L Anion Gap 6.0 3-11 mmol/L Blood Urea Nitrogen 11 7-18 mg/dl Creatinine 0.81 0.60-1.20 mg/dl Est Creatinine Clear Calc Drug Dose 60.1 ml/min Estimated GFR () 82.3 Estimated GFR (Non- 71.0 BUN/Creatinine Ratio 13.0 10-20 Random Glucose 182 70-99 mg/dl Calcium Level 8.2 8.5-10.1 mg/dl
[2017-07-05] MEDS ORDERED: SENN8.6T7 PO (18:49)
[2017-07-05] MEDS ORDERED: RXC5 PO (18:49)
[2017-07-05] MEDS ORDERED: MRLP17X PO (18:49)
[2017-07-05] MEDS ORDERED: MOMLX PO (18:49)
--- NOTE | 2017-07-05 18:52 | Discharge Instructions ---
Discharge Instructions Date of Service Jul 05, 2017. Admission Reason for Admission: Fracture Of Right Hip Discharge Discharge Diagnosis / Problem: RIGHT HIP FRACTURE S/P FALL Discharge Goals Goal(s): Increase independence, Improve disease control, Diagnostic testing, Therapeutic intervention Activity Recommendations Activity Level: Assistance Required Therapies: Physical Therapy, Occupational Therapy Weightbearing Status: Right weightbearing (as tolerated) Lifting Limitations: no more than 5 pounds (ON RT SIDE FOR 2 WEEKS ) Shower/Bathe: no limitations . Additional Information Patient informed of condition: Yes Advance Directives: No DNR: No Level of Care: Acute Rehab Communicable Disease: Yes Prognosis: Stable [place] Catheter: No Instructions / Follow-Up Instructions / Follow-Up FOLLOW UP WITH FAMILY PHYSICIAN AFTER DISCHARGE FROM REHAB FOLLOW UP WITH ORTHOPEDICS IN 2 WEEKS Current Hospital Diet Patient's current hospital diet: Regular Diet Discharge Diet Recommended Diet: Regular Diet Procedures Procedures Performed: Bilateral knee steriod injections, Right Hip intertrochanteric Femoral Nailing Pending Studies Studies pending at discharge: no Medical Emergencies . Who to Call and When: Medical Emergencies: If at any time you feel your situation is an emergency, please call 911 immediately. . Non-Emergent Contact Non-Emergency issues call your: Primary Care Provider . . "Provider Documentation" section prepared by Jenny José. . Ged Instructor Recommendations Ged Instructor Recommendations: Ged Instructor Recommendations Date of Service Jul 07, 2017. Ged Instructor Recommendations [facility] DISCHARGE INSTRUCTIONS: HIP FRACTURE SELF CARE INSTRUCTIONS: A. You are to ambulate with a walker for approximately 6 weeks. B. You are WEIGHT BEARING TOLERATE on your operative lower extremity for at least 6 weeks. C. Wear low heeled shoes with non-slip soles D. Be sure that your floors are free of things that could trip you throw rugs, electrical cords, and small objects. Avoid wet and waxed floors, especially with crutches/walker/cane. E. Try to walk several times a day with rest periods between. F. You may shower 48 hours after surgery and get the incision area wet, but DO NOT soak or submerge incision area in water. (No baths, swimming pools, hot tubs ) G. You CAN shower with this on. If incision is leaking through the dressing, please call the office . H. Do NOT apply soap or any ointment/lotions directly over incision. I. You may use ice as needed to operative site. SPECIAL CARE INSTRUCTIONS: VERY IMPORTANT TO READ AND REVIEW A. You may be at risk for phlebitis or blood clots. a. Wear surgical stockings (SARA hose) for 2 weeks after surgery to improve circulation and reduce swelling. b. Take ASPIRIN 325 mg twice daily for 30 days c. If you are on Coumadin- you will have daily/weekly blood work to monitor your levels. This will be done by either your family physician/ bowling alley floors installer (if you are on Coumadin chronically) versus your orthopedic surgeon. Expect a phone call the day of or the day after your blood work is drawn to adjust your dose accordingly. B. There are a few signs you need to watch for after you are home. Call [facility] at [phone] if you experience any of the following: a. If you have a temperature of 101 degrees or higher. b. Sudden increase in pain in your hip not relieved by rest or pain medication. c. Any fluid or drainage from the incision; redness of the incision. d. Shortness of breath or chest pain. B. Please call [facility] at [phone] if you have any questions or concerns about your operation or recovery. C. Call your physician if: a. Temperature is greater than 101 degrees (F). b. Pain is not relieved by prescribed pain medications. c. Increase drainage or redness from incision. d. Unanswered questions or concerns. D. Pain Medication: a. You will be prescribed pain medication upon discharge that should last till your first post-operative appointment. b. If you experience nausea and/or skin rash, discontinue this medication and contact our office for an alternative medication. c. Caution- narcotic pain medication can cause constipation. FOLLOW UP VISIT: Please call [facility] at [phone] to schedule a follow up appointment 10-14 days from the date of your surgery date. Core Measure Problem Core Measures: None
[2017-07-05] MEDS: DOCUSATE SODIUM/SENNA 50/8.6MG TAB PO SCH (20:48)
[2017-07-05 23:40] VITALS: BP 106/64; PULSE 74; TEMP 36.9; O2SAT 91
--- NOTE | 2017-07-06 07:23 | Orthopedic Progress Note ---
Orthopedic Progress Note Date of Service Jul 06, 2017. Subjective Post OP Day: 2 Reports: feeling well, pain controlled w PO medications, Denies: complaints, chest pain, SOB, nausea / vomiting, light headedness, calf pain Additional Notes: no noticeable improvement from cortisone injections. Objective calves soft nontender, N/V intact, incision C/D/I, A&O x3, toes mobile Date Time Temp Pulse Resp B/P (MAP) Pulse Ox O2 Delivery O2 Flow Rate FiO2 07/05/17 23:40 36.9 74 16 106/64 (78) 91 Room Air 07/05/17 23:20 Room Air 07/05/17 16:30 92 Room Air 07/05/17 15:22 37.1 91 14 123/71 (88) 87 Room Air 07/05/17 10:48 114/65 (81) 07/05/17 07:52 37.4 81 20 92/55 (67) 92 Room Air 07/05/17 07:40 Room Air Assessment & Plan Assessment: POD #2 s/p Right Hip intertrochanteric Femoral Nailing -pain well controlled Bilateral knee OA- given bilateral cortisone injections, continue to observe GERD : on Protonix. UTI : urine culture E Coli currently on Cipro x 5 days DISPOSITION: will need rehab Discharge Planning Discharge Planning: rehab hospital DVT Prophylaxis: Rima Calderon Therapy: Physical Therapy
[2017-07-06 07:50] VITALS: BP 122/64; PULSE 100; TEMP 36.8; O2SAT 90
[2017-07-06] MEDS: CIPROFLOXACIN 250 MG TAB PO SCH ×2 (09:03→20:45)
[2017-07-06] MEDS: POTASSIUM CHLORIDE 10 MEQ TABCR PO SCH (09:03)
[2017-07-06] MEDS: PANTOprazole SOD 40 MG TAB PO SCH (09:03)
[2017-07-06] MEDS: FERROUS SULFATE 325 MG TAB PO SCH (09:03)
[2017-07-06] MEDS: CYANOCOBALAMIN 500 MCG TAB (VIT B-12) PO SCH (09:03)
[2017-07-06] MEDS: CHOLECALCIFEROL 1000 INTER.UNIT TAB PO SCH (09:04)
[2017-07-06 15:35] VITALS: BP 111/63; PULSE 73; TEMP 36.8; O2SAT 91
[2017-07-06 16:30] VITALS: O2SAT 92
--- NOTE | 2017-07-06 16:51 | Progress Note ---
Internal Med Progress Note Date of Service: Jul 06, 2017. Provider Documentation: SUBJECTIVE: doing fairly well minimum pain in rt hip area , able to walk on hallway with walker wants to know if she will be able to return home instead of going to rehab OBJECTIVE: Vital Signs-as noted below Exam: General-no sign of distress Eyes-sclera non icteric ENT-NAD Neck-no JVD Lungs-CTA Heart-regular S1/s2 Abdomen-Soft, non tender Extremities-s/p rt hip repair , ubaldo on right area intact , no drainage Neuro-no focal deficit Lab data as noted below. ASSESSMENT & PLAN: 1. Intertrochanteric fracture of the right hip status post mechanical fall. s/p ORIF POD # 3 recovering well pain well controlled doing well in PT/OT pt wondering of returning home with home PT upon discharge GERD : cont , Protonix. UTI : urine culture E Coli started on Cipro changed to PO will need 5 days tx full code DVT PROPHYLAXIS scd and teds moderate to high risk post hip surgery started on Sub q heparin DISPOSITION pt prefers to return home with home health and family support will d/w daughter possible discharge tomorrow Medicine follow up with Dr Ambrocio Vital Signs: Date Time Temp Pulse Resp B/P (MAP) Pulse Ox O2 Delivery O2 Flow Rate FiO2 07/06/17 15:35 36.8 73 18 111/63 (79) 91 Room Air 07/06/17 09:17 Room Air 07/06/17 07:50 36.8 100 18 122/64 (83) 90 Room Air 07/05/17 23:40 36.9 74 16 106/64 (78) 91 Room Air 07/05/17 23:20 Room Air
[2017-07-06] MEDS: DOCUSATE SODIUM/SENNA 50/8.6MG TAB PO SCH (20:46)
[2017-07-06 23:40] VITALS: O2SAT 92
[2017-07-07] VITALS: BP 107/65; PULSE 67; TEMP 36.9; O2SAT 92
[2017-07-07 07:17] VITALS: BP 117/71; PULSE 76; TEMP 36.9; O2SAT 92
--- NOTE | 2017-07-07 07:46 | Orthopedic Progress Note ---
Orthopedic Progress Note Date of Service Jul 07, 2017. Subjective Post OP Day: 3 Reports: feeling well, pain controlled w PO medications, Denies: complaints, chest pain, SOB, nausea / vomiting, light headedness, calf pain Objective calves soft nontender, N/V intact, capillary refill less than 2 sec., incision C /D/I, A&O x3, toes mobile Date Time Temp Pulse Resp B/P (MAP) Pulse Ox O2 Delivery O2 Flow Rate FiO2 07/07/17 00:00 36.9 67 16 107/65 (79) 92 Room Air 07/06/17 23:40 92 Room Air 07/06/17 16:30 92 Room Air 07/06/17 15:35 36.8 73 18 111/63 (79) 91 Room Air 07/06/17 09:17 Room Air 07/06/17 07:50 36.8 100 18 122/64 (83) 90 Room Air Assessment & Plan Assessment: POD #3 s/p Right Hip intertrochanteric Femoral Nailing -pain well controlled -Follow up in office 10-14 days. Bilateral knee OA- given bilateral cortisone injections, continue to observe GERD : on Protonix. UTI : urine culture E Coli currently on Cipro x 5 days DISPOSITION: will need rehab She is cleared from an Orthopedic standpoint. We will sign off at this time. If there is any questions please reconsult. Discharge Planning Discharge Planning: rehab hospital DVT Prophylaxis: Rima Calderon Therapy: Physical Therapy
--- NOTE | 2017-07-07 07:49 | Consultant Recommendations ---
Galvanizing Pot Runner Recommendations Date of Service Jul 07, 2017. Galvanizing Pot Runner Recommendations [facility] [place]: HIP FRACTURE SELF CARE INSTRUCTIONS: A. You are to ambulate with a walker for approximately 6 weeks. B. You are WEIGHT BEARING TOLERATE on your operative lower extremity for at least 6 weeks. C. Wear low heeled shoes with non-slip soles D. Be sure that your floors are free of things that could trip you throw rugs, electrical cords, and small objects. Avoid wet and waxed floors, especially with crutches/walker/cane. E. Try to walk several times a day with rest periods between. F. You may shower 48 hours after surgery and get the incision area wet, but DO NOT soak or submerge incision area in water. (No baths, swimming pools, hot tubs ) G. You CAN shower with this on. If incision is leaking through the dressing, please call the office . H. Do NOT apply soap or any ointment/lotions directly over incision. I. You may use ice as needed to operative site. SPECIAL CARE INSTRUCTIONS: VERY IMPORTANT TO READ AND REVIEW A. You may be at risk for phlebitis or blood clots. a. Wear surgical stockings (SARA hose) for 2 weeks after surgery to improve circulation and reduce swelling. b. Take ASPIRIN 325 mg twice daily for 30 days c. If you are on Coumadin- you will have daily/weekly blood work to monitor your levels. This will be done by either your family physician/ office services representative (if you are on Coumadin chronically) versus your orthopedic surgeon. Expect a phone call the day of or the day after your blood work is drawn to adjust your dose accordingly. B. There are a few signs you need to watch for after you are home. Call [facility] at [phone] if you experience any of the following: a. If you have a temperature of 101 degrees or higher. b. Sudden increase in pain in your hip not relieved by rest or pain medication. c. Any fluid or drainage from the incision; redness of the incision. d. Shortness of breath or chest pain. B. Please call [facility] at [phone] if you have any questions or concerns about your operation or recovery. C. Call your physician if: a. Temperature is greater than 101 degrees (F). b. Pain is not relieved by prescribed pain medications. c. Increase drainage or redness from incision. d. Unanswered questions or concerns. D. Pain Medication: a. You will be prescribed pain medication upon discharge that should last till your first post-operative appointment. b. If you experience nausea and/or skin rash, discontinue this medication and contact our office for an alternative medication. c. Caution- narcotic pain medication can cause constipation. FOLLOW UP VISIT: Please call [facility] at [phone] to schedule a follow up appointment 10-14 days from the date of your surgery date.
[2017-07-07] MEDS: CIPROFLOXACIN 250 MG TAB PO SCH ×2 (09:20→20:44)
[2017-07-07] MEDS: CHOLECALCIFEROL 1000 INTER.UNIT TAB PO SCH (09:20)
[2017-07-07] MEDS: FERROUS SULFATE 325 MG TAB PO SCH (09:20)
[2017-07-07] MEDS: CYANOCOBALAMIN 500 MCG TAB (VIT B-12) PO SCH (09:20)
[2017-07-07] MEDS: PANTOprazole SOD 40 MG TAB PO SCH (09:20)
[2017-07-07] MEDS: POTASSIUM CHLORIDE 10 MEQ TABCR PO SCH (09:20)
--- NOTE | 2017-07-07 10:53 | Anesthesiology Progress Note ---
Anesthesia Post Op Note Date & Time Jul 07, 2017 at 10:53 Vital Signs Pain Intensity: 0.0 Vital Signs Past 12 Hours Date Time Temp Pulse Resp B/P (MAP) Pulse Ox O2 Delivery O2 Flow Rate FiO2 07/07/17 07:53 Room Air 07/07/17 07:17 36.9 76 17 117/71 (86) 92 Room Air 07/07/17 00:00 36.9 67 16 107/65 (79) 92 Room Air 07/06/17 23:40 92 Room Air Notes Mental Status: alert / awake / arousable, participated in evaluation Pt Amnestic to Procedure: Yes Nausea / Vomiting: adequately controlled Pain: adequately controlled Airway Patency, RR, SpO2: stable & adequate BP & HR: stable & adequate Hydration State: stable & adequate Anesthetic Complications: no major complications apparent
[2017-07-07] MEDS ORDERED: ASPEC325 PO (12:19)
[2017-07-07] MEDS ORDERED: CPR250 PO (12:20)
--- NOTE | 2017-07-07 13:28 | Orthopedic Progress Note ---
Orthopedic Progress Note Date of Service Jul 07, 2017. Subjective Post OP Day: 3 Reports: feeling well, Denies: complaints Additional Notes: CM present and talking to patient about SNF's. Pt somewhat adamant about going. She is ambulating 26' in PT. Discussed that we would like to see her ambulating further distance before going home. She talked about going to her daughter's house but would possibly be alone a good portion of the time. After discussion with CM, she is agreeable to [facility]. Objective calves soft nontender, N/V intact, incision C/D/I, A&O x3, toes mobile Date Time Temp Pulse Resp B/P (MAP) Pulse Ox O2 Delivery O2 Flow Rate FiO2 07/07/17 07:53 Room Air 07/07/17 07:17 36.9 76 17 117/71 (86) 92 Room Air 07/07/17 00:00 36.9 67 16 107/65 (79) 92 Room Air 07/06/17 23:40 92 Room Air 07/06/17 16:30 92 Room Air 07/06/17 15:35 36.8 73 18 111/63 (79) 91 Room Air Assessment & Plan Assessment: POD #3 s/p Right Hip intertrochanteric Femoral Nailing -pain well controlled -Follow up in office 10-14 days. Bilateral knee OA- given bilateral cortisone injections, continue to observe GERD : on Protonix. UTI : urine culture E Coli currently on Cipro x 5 days DISPOSITION: [facility] when ok with Med Service She is cleared from an Orthopedic standpoint. We will sign off at this time. If there is any questions please reconsult. Discharge Planning Discharge Planning: rehab hospital DVT Prophylaxis: Rima Calderon Therapy: Physical Therapy
[2017-07-07 15:19] VITALS: BP 104/62; PULSE 86; TEMP 37.1; O2SAT 92
--- NOTE | 2017-07-07 18:31 | Progress Note ---
Internal Med Progress Note Date of Service: Jul 07, 2017. Provider Documentation: SUBJECTIVE: no pain on rt hip fracture site able to walk with walker willing to go to rehab -[facility] OBJECTIVE: Vital Signs-as noted below Exam: General-no sign of distress Eyes-sclera non icteric ENT-NAD Neck-no JVD Lungs-CTA Heart-regular S1/s2 Abdomen-Soft, non tender Extremities-s/p rt hip repair , ubaldo on right area intact , no drainage Neuro-no focal deficit Lab data as noted below. ASSESSMENT & PLAN: 1. Intertrochanteric fracture of the right hip status post mechanical fall. s/p ORIF POD # 4 recovering well pain well controlled doing well in PT/OT GERD : cont , Protonix. UTI : urine culture E Coli started on Cipro ( Day # 4 ) changed to PO will need 5 days tx full code DVT PROPHYLAXIS scd and teds moderate to high risk post hip surgery started on Sub q heparin DISPOSITION will need rehab referral made for [facility] possible transfer tomorrow Daughter will provide transportation Vital Signs: Date Time Temp Pulse Resp B/P (MAP) Pulse Ox O2 Delivery O2 Flow Rate FiO2 07/07/17 15:19 37.1 86 18 104/62 (76) 92 Room Air 07/07/17 15:00 Room Air 07/07/17 07:53 Room Air 07/07/17 07:17 36.9 76 17 117/71 (86) 92 Room Air 07/07/17 00:00 36.9 67 16 107/65 (79) 92 Room Air 07/06/17 23:40 92 Room Air
[2017-07-07] MEDS: DOCUSATE SODIUM/SENNA 50/8.6MG TAB PO SCH (20:44)
[2017-07-07 23:30] VITALS: BP 122/73; PULSE 82; TEMP 36.9; O2SAT 92
[2017-07-08 07:36] VITALS: BP 106/68; PULSE 80; TEMP 37; O2SAT 91
[2017-07-08] MEDS: POTASSIUM CHLORIDE 10 MEQ TABCR PO SCH (09:15)
[2017-07-08] MEDS: CIPROFLOXACIN 250 MG TAB PO SCH (09:16)
[2017-07-08] MEDS: FERROUS SULFATE 325 MG TAB PO SCH (09:16)
[2017-07-08] MEDS: CYANOCOBALAMIN 500 MCG TAB (VIT B-12) PO SCH (09:16)
[2017-07-08] MEDS: PANTOprazole SOD 40 MG TAB PO SCH (09:16)
[2017-07-08] MEDS: CHOLECALCIFEROL 1000 INTER.UNIT TAB PO SCH (09:17)
[2017-07-08 09:50] VITALS: O2SAT 91
--- NOTE | 2017-07-08 13:43 | Progress Note ---
Subjective Date of Service: Jul 08, 2017. Subjective Pt evaluation today including: conversation w/ patient, physical exam, lab review, review of studies, review of inpatient medication list Saw/examined the patient in room 386 Doing well, denies any pain, no other issues to note eager to get out of the hospital; agreeable to SNF Review of Systems Constitutional: No fever, No chills Musculoskeletal: + joint pain (controlled) Heme: No abnormal bleeding/bruising (bruising around R hip) Medications Current Inpatient Medications Medications (Trade) Dose Ordered Sig/Nicanor Route Start Time Stop Time Status Last Admin Dose Admin Ondansetron HCl (Zofran Inj) 4 mg Q6H PRN IV 07/03/17 20:30 08/02/17 20:29 Morphine Sulfate (MoRPHine SULFATE INJ) 1 mg Q2H PRN IV 07/03/17 20:30 07/17/17 20:29 07/04/17 09:29 1 MG Naloxone HCl (Narcan Inj) 0.1 mg PRN PRN IV 07/03/17 20:30 08/02/17 20:29 Senna/Docusate Sodium (Senokot S Tab) 2 tab HS PO 07/03/17 21:00 08/02/17 20:59 07/06/17 20:46 2 TAB Polyethylene (Miralax Powder Packet) 17 gm DAILY PRN PO 07/03/17 20:30 08/02/17 20:29 Magnesium Hydroxide (Milk Of Magnesia Susp) 30 ml DAILY PRN PO 07/03/17 20:30 08/02/17 20:29 Bisacodyl (Dulcolax Supp) 10 mg DAILY PRN HI 07/03/17 20:30 08/02/17 20:29 Potassium Chloride (Klor-Con M10) 10 meq DAILY PO 07/04/17 09:00 08/03/17 08:59 07/08/17 09:15 10 MEQ Ferrous Sulfate (Feosol Tab) 325 mg DAILY PO 07/04/17 08:00 08/03/17 07:59 07/08/17 09:16 325 MG Pantoprazole Sodium (Protonix Tab) 40 mg QAM PO 07/04/17 09:00 08/03/17 08:59 07/08/17 09:16 40 MG Zolpidem Tartrate (Ambien Tab) 5 mg HS PRN PO 07/03/17 23:15 08/02/17 23:14 07/03/17 23:22 5 MG Cyanocobalamin (Vitamin B-12 Tab) 1,000 mcg DAILY PO 07/05/17 09:00 08/04/17 08:59 07/08/17 09:16 1,000 MCG Cholecalciferol (Vitamin D Tab) 1,000 inter.unit DAILY PO 07/05/17 09:00 08/04/17 08:59 07/08/17 09:17 1,000 INTER.UNIT Acetaminophen (Tylenol Tab) 650 mg Q6H PRN PO 07/04/17 18:00 08/03/17 17:59 Oxycodone HCl (Roxicodone Immediate Rel Tab) 5 mg Q4H PRN PO 07/04/17 18:00 07/18/17 17:59 Oxycodone HCl (Roxicodone Immediate Rel Tab) 10 mg Q4H PRN PO 07/04/17 18:00 07/18/17 17:59 07/05/17 06:09 10 MG Sodium Biphosphate/ Sodium Phosphate (Fleet Enema) 132 ml ONE PRN HI 07/04/17 18:00 08/03/17 17:59 Ciprofloxacin (Ciprofloxacin Tab) 500 mg Q12 PO 07/06/17 09:00 07/11/17 08:59 07/08/17 09:16 500 MG Objective Vital Signs Date Time Temp Pulse Resp B/P (MAP) Pulse Ox O2 Delivery O2 Flow Rate FiO2 07/08/17 09:50 91 Room Air 07/08/17 08:05 Room Air 07/08/17 07:36 37.0 80 20 106/68 (81) 91 Room Air 07/07/17 23:35 Room Air 07/07/17 23:30 36.9 82 16 122/73 (89) 92 Room Air 07/07/17 15:19 37.1 86 18 104/62 (76) 92 Room Air 07/07/17 15:00 Room Air Physical Exam General Appearance: no apparent distress ENT: hearing grossly normal Respiratory/Chest: chest non-tender, lungs clear, normal breath sounds, no respiratory distress, no accessory muscle use Cardiovascular: regular rate, rhythm, no edema, no murmur Abdomen: normal bowel sounds, non tender, soft Extremities: normal inspection, no pedal edema Neurologic/Psychiatric: no motor/sensory deficits, alert, normal mood/affect Assessment and Plan This is a 76 year old female with no significant PMH presented due to a mechanical fall and R hip fracture R Hip Fracture secondary to Mechanical Fall s/p Intratrochanteric Nailing doing well post-operatively ambulating with walker no significant pain No other issues to note PT/OT d/c to SNF UTI E. coli grown on culture completed course of Cipro DVT ppx as per ortho; full dose aspirin FULL CODE
--- NOTE | 2017-07-08 13:44 | Discharge Summary ---
Discharge Summary Date of Service Jul 08, 2017. Discharge Summary Admission Date: Jul 03, 2017 at 21:21 Discharge Date: Jul 07, 2017 Discharge Disposition: halfway facility Principal Diagnosis: R Hip fracture s/p repair Urinary Tract Infection Medication Reconciliation New Medications: Aspirin (Aspirin) 325 Mg Ectab 1 TAB PO BID for 30 Days, #60 Magnesium Hydroxide (Milk of Magnesia) 30 Ml Susp 30 ML PO DAILY PRN for Constipation for 30 Days Oxycodone HCl (Oxycodone HCl) 5 Mg Tab 5 MG PO Q4H PRN for Moderate Pain (pain scale 4-6), #10 TAB Polyethylene (Miralax) 17 Gm Pow 17 GM PO DAILY PRN for Constipation, #30 Sennosides-Docusate Sodium (Senokot S) 1 Tab Tab 2 TAB PO HS, #30 TAB Continued Medications: Cholecalciferol (Vitamin D) Unknown Strength Tab 1 TAB PO DAILY Cranberry (Vaccinium Macrocarp (Cranberry) Unknown Strength Tab 1 TAB PO DAILY Cyanocobalamin (Vitamin B-12) Unknown Strength Tab 1 TAB PO DAILY Ferrous Sulfate (Iron) Unknown Strength Tab 1 TAB PO DAILY Potassium Chloride (Micro-K Ext Rel) 10 Meq Capcr 10 MEQ PO DAILY Discontinued Medications: Prednisone (Prednisone) 10 Mg Tab 20 MG PO DAILY X 3 DAYS Prednisone Tab (Prednisone) 10 Mg Tab 30 MG PO DAILY X 3 DAYS Prednisone Tab (Prednisone) 10 Mg Tab 10 MG PO DAILY X 5 DAYS Admission Information Physical Exam (per Admitting): DATE OF ADMISSION: 07/03/2017 PRIMARY CARE PHYSICIAN: Dr. Ambrocio CHIEF COMPLAINT: Status post mechanical fall with fracture of the right hip. HISTORY OF PRESENT COMPLAINT: She is a 76-year-old female without a significant past medical history. Apparently while getting out of her garage to the kitchen, she missed a step and she fell backwards, hitting her bottom and head to some extent. She was not able to get up from there and she was brought in by the ambulance. She was noted to have an intertrochanteric fracture of the right femur. From that point, she was admitted to the medical floor and ortho consultation was taken for probable surgery down the line. When asking questions, she denies to have any headache, any blurred vision, any palpitations, any numbness, tingling or any weakness involving any side of the body before the fall. No recent history of fever, chills or rigors. No cough or phlegm. No chest pain or palpitation. No abdominal pain, nausea or vomiting. 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 She does not have any shortness of breath for usual day-to-day activities. PAST MEDICAL HISTORY: Significant for osteoarthritis, iron deficiency anemia and remote history of epilepsy, but nothing is causing any problem. PAST SURGICAL HISTORY: Biopsy of the breast in 2000 for right breast carcinoma. FAMILY HISTORY: Significant in that her mom had diabetes. SOCIAL HISTORY: She is a . She lives alone. She does not smoke. She drinks very occasionally and she has been ambulant. ALLERGIES: TO SULFA DRUGS. MEDICATIONS: She has been on potassium chloride 10 mEq daily. She was started with prednisone reducing course for chronic back pain. Vitamin D [id number] 1 tablet daily, cranberry 1 tablet daily, vitamin B12 one tablet daily and ferrous sulfate [id number] 1 tablet daily. REVIEW OF SYSTEMS: Unremarkable except for those mentioned in the history of present complaint. PHYSICAL EXAMINATION: GENERAL: On examination in the Emergency Room, she was not having any acute distress. VITAL SIGNS: Temperature 36.8, pulse of 92, blood pressure 192/67 and saturation 95% on room air. HEENT: Unremarkable. NECK: Supple. No JVD, no bruit. CHEST: Clear to auscultation bilaterally. HEART: S1, S2 regular, no murmur. ABDOMEN: Soft, benign, nontender, no organomegaly. Bowel sounds present. EXTREMITIES: Negative for any edema. MUSCULOSKELETAL SYSTEM: Did not show any acute arthritis; but right lower extremity was not examined, any movement of the right hip causes pain. There is no significant deformity of the right lower extremities. CENTRAL NERVOUS SYSTEM: She is alert, awake, oriented x3 and no focal sensory and/or motor deficit appreciated. LABORATORY DATA: Noted today; white count was 11.3, H&H 11.8/35.4 and platelets was 283. Sodium 141, potassium 4.0, chloride 111, carbon dioxide 25, BUN 14, creatinine 0.81. Random glucose 140, calcium 8.6. PT/INR unremarkable. EKG; was in sinus rhythm, rate of 81 per minute, normal axis and no significant ST-T wave abnormalities. only one PVC noted. Chest x-ray; reported as chronic changes, but no acute process. X-ray of the femur; showed intertrochanteric fracture of the right hip with slight superior migration of right femoral shaft. CT of the head; post-surgical changes of the left parietal craniotomy with encephalomalacia, inflammatory changes within the sphenoid sinus. No acute intracranial finding. X-ray of the pelvis; intertrochanteric fracture of the right hip as mentioned earlier. IMPRESSION AND PLAN: 1. Intertrochanteric fracture of the right hip status post mechanical fall. The patient will be admitted to the medical floor. Dr. Fox the orthopedic surgeon was consulted; most likely she will be going for surgery tomorrow morning. There is no contraindication for surgery at this time. 2. Chronic back pain with recent exacerbation. She has been on prednisone, taper dose recently. We will hold prednisone right now and start following surgery. She does not have any acute symptoms at this time. 3. Osteoarthritis. She will have Tylenol for pain right now and she may need stronger pain medications including Percocet during this admission. 4. Gastrointestinal prophylaxis, Protonix. 5. Deep venous thrombosis prophylaxis with SCDs and further DVT prophylaxis will depend as per ortho. 6. Code status. She will be a full code. Hospital Course 1. Intertrochanteric fracture of the right hip status post mechanical fall. s/p ORIF POD # 4 recovering well pain well controlled doing well in PT/OT GERD : cont , Protonix. UTI : urine culture E Coli started on Cipro ( Day # 4 ) changed to PO will need 5 days tx full code DVT PROPHYLAXIS scd and teds moderate to high risk post hip surgery started on Sub q heparin DISPOSITION will need rehab referral made for [facility] possible transfer tomorrow Daughter will provide transportation Total time spent on discharge = 20 minutes This includes examination of the patient, discharge planning, medication reconciliation, and communication with other providers. Discharge Instructions FOLLOW UP WITH FAMILY PHYSICIAN AFTER DISCHARGE FROM REHAB FOLLOW UP WITH ORTHOPEDICS IN 2 WEEKS
[2017-07-08 14:44] VITALS: BP 106/68; PULSE 80; TEMP 37; O2SAT 91
== END 2017-07-08 15:05 | DRG 481 ==
LOC: EDBD 16:40 → C.EDC 16:41 → C.MSN 21:21 → ENRESERV 21:27
PROVIDERS: ADMIT Internal Medicine; ATTEND Family Medicine
PROC: 0QS634Z Reposition Right Upper Femur with Internal Fixation Device, Percutaneous Approach (ICD-10-PCS; principal; 2017-07-04 13:30)
PROC: 3E0U33Z Introduction of Anti-inflammatory into Joints, Percutaneous Approach (ICD-10-PCS; principal; 2017-07-04 13:30)
DX: S72.111A Displaced fracture of greater trochanter of right femur, initial encounter for closed fracture (principal); N39.0 Urinary tract infection, site not specified; G65.0 Sequelae of Guillain-Barre syndrome; N39.498 Other specified urinary incontinence; G62.89 Other specified polyneuropathies; M19.90 Unspecified osteoarthritis, unspecified site; Z85.3 Personal history of malignant neoplasm of breast; G89.29 Other chronic pain; M54.9 Dorsalgia, unspecified; B96.20 Unspecified Escherichia coli [E. coli] as the cause of diseases classified elsewhere; Z83.3 Family history of diabetes mellitus; Y93.01 Activity, walking, marching and hiking; Z88.2 Allergy status to sulfonamides; W10.9XXA Fall (on) (from) unspecified stairs and steps, initial encounter; Y92.015 Private garage of single-family (private) house as the place of occurrence of the external cause

== ENCOUNTER 2019-01-12 00:54 | Inpatient (IN) ==
[2019-01-12] MEDS ORDERED: ONDANSETRON INJ 2 MG/ML 2 ML VIAL IV STA ×2 (01:12→03:30)
[2019-01-12] MEDS ORDERED: DiphenhydrAMINE HCL 50 MG/ML VIAL IV STA (01:13)
[2019-01-12] MEDS ORDERED: SODIUM CHLORIDE 0.9% 1000ML 1,000 ML IV SCH (01:15)
[2019-01-12 01:44] LABS: Basophils # (auto) 0.02 K/uL (0-0.2); Basophils % (auto) 0.1 %; Eosinophils # (auto) 0.01 K/uL (0-0.5); Eosinophils % (auto) 0.1 %; Hematocrit (blood only) 34.9 % (37-47); Hemoglobin 11.6 g/dL (12.0-16.0); Immature Granulocytes # (auto) 0.07 K/uL (0.00-0.02); Immature Granulocytes % (auto) 0.4 %; Lymphocytes # (auto) 0.35 K/uL (1.2-3.4); Lymphocytes % (auto) 2.2 %; Mean Corpuscular Hgb Conc 33.2 g/dL (32-36); Mean Corpuscular Volume 90.9 fL (80-100); Mean Platelet Volume 9.4 fL (7.4-10.4); Monocytes # (auto) 0.38 K/uL (0.11-0.59); Monocytes % (auto) 2.4 %; Neutrophils # (auto) 14.95 K/uL (1.4-6.5); Neutrophils % (auto) 94.8 %; Platelet Count 289 K/uL (130-400); RDW Coefficient of Variation 13.9 % (11.5-14.5); Red Blood Count 3.84 M/uL (4.2-5.4); White Blood Count 15.78 K/uL (4.8-10.8)
[2019-01-12 02:01] LABS: Albumin Level 3.2 gm/dl (3.4-5.0); BUN Creatinine Ratio 21.3 (10-20); Calcium 8.1 mg/dl (8.5-10.1); Creatinine Clr Calc Pharmacy 44.5 ml/min; Est GFR (African American) 64.5; Est GFR (Non-African American) 55.6; Potassium 3.1 mmol/L (3.5-5.1)
[2019-01-12 02:04] LABS: Albumin Globulin Ratio 0.9 (0.9-2); Bilirubin,Total 0.7 mg/dl (0.2-1); Globulin 3.7 gm/dl (2.5-4.0); Total Protein 6.9 gm/dl (6.4-8.2)
[2019-01-12] MEDS ORDERED: IOVERSOL 100ml IV PRN (02:37)
[2019-01-12 03:22] LABS: Influenza A virus by PCR Neg for Influ A (Neg); Influenza B virus by PCR Neg for Influ B (Neg)
[2019-01-12] MEDS ORDERED: fentaNYL citrate 100 MCG/2 ML VIAL IV STA (03:30)
[2019-01-12] MEDS ORDERED: PIPERACILLIN/TAZOBACTAM 4.5 GM/120 ML BAG IV ONE (03:31)
[2019-01-12] MEDS ORDERED: PIPERACILL/TAZOBAC CONSULT ACTIVE PRN (03:31)
[2019-01-12] MEDS ORDERED: ACETAMINOPHEN 65 ML IV ONE (04:02)
[2019-01-12 04:18] LABS: Partial Thromboplastin Ratio 0.9; Partial Thromboplastin Time 24.1 Seconds (21.0-31.0)
[2019-01-12] MEDS ORDERED: PANTOprazole 80 MG in DEXTROSE 5% 100 ML IV ONE (04:27)
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
[2019-01-12] MEDS ORDERED: PROCHLORPERAZINE 5 MG in SYRINGE 4 ML IV STA (04:30)
[2019-01-12 04:31] LABS: Magnesium 1.7 mg/dl (1.8-2.4)
[2019-01-12] MEDS ORDERED: TAMSULOSIN HCL 0.4 MG CAP PO SCH (04:39)
[2019-01-12] MEDS ORDERED: LACTATED RINGER'S 1,000 ML IV ONE (05:11)
[2019-01-12 05:12] LABS: Appearance Urine Cloudy (Clear); Bacteria Urine Automated Negative (Negative); Bilirubin Urine Negative (Negative); Blood Urine 2+ (Negative); Color Urine Yellow; Epithelial Cell Urine Auto >30 /lpf (0-5); Glucose Urine UA Negative (Negative); Ketones Urine Negative (Negative); Leukocyte Esterase Urine 3+ (Negative); Nitrite Urine Negative (Negative); Protein Urine Negative (Negative); Specific Gravity Urine 1.044 (1.000-1.030); Urobilinogen Urine Negative (Negative); WBC Urine Automated >30 /hpf (0-5)
[2019-01-12 05:16] LABS: HCO3 ABG 23 mmol/L (19-24); Oxygen Saturation ABG 98.5 % (90-95); PCO2 ABG 35 mmHg (35-46); PO2 ABG 124 mm/Hg (80-95); pH ABG 7.44 (7.35-7.45)
[2019-01-12 05:33] LABS: Allen Test POS (Pos)
[2019-01-12] MEDS: POTASSIUM CHLORIDE / WTR 10 MEQ/100 ML PLCT IV SCH ×4 (05:36→08:45)
--- NOTE | 2019-01-12 06:20 | Emergency Department Note ---
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 Benadryl. Laboratory work reveals an elevated WBC. Ultrasound the right upper quadrant was performed and reveals hydronephrosis on the right. CT scan of the abdomen pelvis was performed and reveals a 3 mm stone in the distal right ureter with a concerning hyperdensity. Patient did receive IV fentanyl for pain. IV hydration was continued. The patient was given IV Zosyn due to the elevated WBC and greater than 30 WBCs in the urine. Patient's lactate is 2.8. Patient's case was discussed with Dr. Fung of the hospitalist service will evaluate the patient for further management. Impression & Plan Right ureteral stone, Renal colic on right side Discharge Plan Visit Data *Final* Discharge Date/Time: 01/12/19 06:12 Chief Complaint: Vomiting ED Provider: Christiane Leal Discharge Problem: Right ureteral stone, Renal colic on right side Patient Disposition: Admitted As Inpatient Discharge Instructions Interventions: ED Discharge Assessment Last Done: 01/12/19 06:12 The scribe's documentation has been prepared under my direction and personally reviewed by me in its entirety. I confirm that the note above accurately reflects all work, treatment, procedures, and medical decision making performed by me.
[2019-01-12] MEDS ORDERED: OXYCODONE/ACETAMINOPHEN 5mg/325mg TAB PO PRN (06:34)
[2019-01-12] MEDS ORDERED: ACETAMINOPHEN 325 MG TAB PO PRN (06:34)
[2019-01-12] MEDS ORDERED: NITROGLYCERIN SL 0.4 MG/TAB TAB SL PRN (06:34)
[2019-01-12] MEDS ORDERED: LORazepam 0.25 MG/0.5 ML VIAL IV PRN (06:34)
[2019-01-12] MEDS ORDERED: PROCHLORPERAZINE 5 MG in SYRINGE 4 ML IV PRN (06:34)
[2019-01-12] MEDS ORDERED: MoRPHine SULFATE 4 MG/ML 1 ML CARP\\VIAL IV PRN (06:34)
[2019-01-12] MEDS ORDERED: MAGNESIUM SULFATE / D5W 1 GM/100 ML BAG IV ONE (06:34)
--- NOTE | 2019-01-12 06:36 | Ultrasound Report ---
US gallbladder CLINICAL HISTORY: 78 years-old Female presenting with RUQ pain. TECHNIQUE: Real-time grayscale and limited color Doppler ultrasound imaging of the abdomen limited to the right upper quadrant was performed. COMPARISON: None. FINDINGS: Pancreas: Visualized portions of the pancreatic head and body normal. Liver: Moderately hyperechogenic parenchyma with partial obscuration of the right hemidiaphragm, like ly indicating moderate steatosis. The liver measures 22.4 cm in maximal sagittal dimension. No sonogr aphic evidence of hepatic mass. Main portal vein patent with normal directional flow. Biliary: No intrahepatic biliary ductal dilatation. Common bile duct measures up to 5-7 mm in diamete r. Gallbladder: The gallbladder is distended measuring 13.8 cm in long axis though only 2.5 cm in diamet er, likely on a physiologic basis. Gallstones evident. No evidence of gallbladder wall thickening, or pericholecystic fluid or inflammatory change. Unable to assess sonographic Lamb's sign. Right kidney: Moderate right pelvocaliectasis with blunting of the calyces. Possible renal calculi. A cyst may also be present. Ascites: None. Other: None. IMPRESSION: 1. Moderate right hydronephrosis with suspected right nephrolithiasis. Obstructing right ureteral ca lculus not excluded. 2. Hepatic steatosis and hepatomegaly. Correlate with liver function tests to exclude steatohepatiti s as a cause for abdominal pain. 3. Cholelithiasis. No convincing evidence of cholecystitis. Electronically signed by: Ortiz Lau M.D. 01/12/2019 6:35 AM
[2019-01-12] MEDS: LACTATED RINGER'S 1,000 ML IV SCH ×2 (07:03→09:12)
[2019-01-12 07:15] LABS: Hematocrit (blood only) 31.8 % (37-47); Hemoglobin 10.3 g/dL (12.0-16.0)
[2019-01-12] MEDS ORDERED: CEFEPIME 2,000 MG in SYRINGE 7.5 ML IV SCH (07:15)
--- NOTE | 2019-01-12 07:29 | XRay Report ---
XR abdomen 2V w PA chest CLINICAL HISTORY: 78 years-old Female presenting with nausea, vomiting, diarrhea. TECHNIQUE: PA view of the chest and supine and upright views of the abdomen were obtained. COMPARISON: Chest x-ray from 07/03/2017 and plain radiograph of the abdomen from 12/29/2007. FINDINGS: Atherosclerosis of the aortic arch. Cardiac silhouette normal in size. Heterogeneity of lung parenchy ma with mild hyperinflation. Minimal reticular opacities at the right lung base. No large effusion or pneumothorax. Paucity of small bowel gas, nonspecific. No gross pneumoperitoneum. Calcifications project over the left kidney consistent with renal calculi. Few left hemipelvic phlebo liths again noted. Calcification also evident in the right pelvis not present on prior exam in 2007, indeterminate. Degenerative changes of the spine. Degenerative changes of the acromioclavicular joints. Possible und erlying osteopenia. Intramedullary nail fixation of the right femoral neck and proximal metadiaphysis . IMPRESSION: 1. Possible underlying chronic lung disease at the right lung base. 2. Left nephrolithiasis. Distal right ureteral calculus not excluded. Please see separately dictated CT. 3. Paucity small bowel gas, nonspecific. Electronically signed by: Ortiz Lau M.D. 01/12/2019 7:27 AM
--- NOTE | 2019-01-12 08:09 | Hospitalist Progress Note ---
Date of Service January 12, 2019 Assessment & Plan (1) Severe sepsis: SIRS plus lactic acid elevation secondary to complicated UTI/obstructive uropathy UGIB hx NSAID intake for aches Hemoglobin better than baseline hemoglobin of 10 Possible hemodynamic instability with concomitant sepsis poss etio : Esophagitis, MWT, gastritis, PUD Loose stools rule out C. difficile right breast cancer status post surgery, radiation meningioma status post surgery hx seizure disorder, stable off AED therapy history of Guillain Richmond syndrome Hyperglycemia rule out DM Hypokalemia secondary to emesis, diarrhea, NS c K Medical telemetry CS, stool C. difficile IV Cefepime for complicated UTI Flomax trial, strain urine Urology consult RE obstructive uropathy IV PPI for UGIB Serial H&H, transfuse PRBC if hemoglobin less than 7 and or for symptomatic anemia GI consult if with progressive anemia/UGI B Patient counseled about hazards of OTC NSAID intake. Check hemoglobin A1c Replace electrolytes DVT prophylaxis. SCDs RE GI bleed Full code Subjective ROS-No Headache, No Visual Changes, No Nausea, No Vomiting, No Fever, No Chills , No Neck Pain or Stiffness, No Chest Pain, No Palpitations, No SOB, No TAMAYO, No Cough, No Sputum, No Wheezing, No Abdominal Pain, No Diarrhea, No Hematemesis, No Hemoptysis, No Unexpected Weight Loss, No Flank pain, No Melena, No Hematochezia, No Frequency, No Urgency, No Burning, No Hematuria, No Rashes, No Diaphoresis. Appetite is Normal, +R Flank Pain Physical Exam Gen-AAO x 3, NAD, febrile Head-NCAT, EOMI, PERRLA, Anicteric Sclera, No Posterior Pharyngeal Erythema Neck-Supple, No JVD, No Thyromegaly, No Masses, No LAD, No Bruits Lungs-Clear to Auscultation Bilaterally, No Rales, No Rhonchi, No Wheezing, No Crepitus Chest-No S4, +S1, +S2, No S3, No Murmurs, No Rubs, No Gallops, No Ectopy Abdomen-Soft, Bowel Sounds Present, Non Tender, Non Distended, No Hepatomegaly, No Splenomegaly, No Palpable Masses, No Rebound, No Rigidity, No Guarding Musculoskeletal-Full Range of Motion Bilaterally, R CVAT Extremities-No Cyanosis, No Clubbing, No Edema Nuero-Cranial Nerves II-XII grossly intact, Motor WNL, DTRs WNL, Strength WNL, Non Focal Psych-Normal Mood Physical Exam 2 Vital Signs (Past 24 Hours): Last Vital Signs Temp 36.9 C 01/12/19 06:11 Pulse 87 01/12/19 07:58 Resp 18 01/12/19 06:12 BP 98/53 L 01/12/19 06:12 Pulse Ox 98 01/12/19 06:12 Results & Data Laboratory Results Allergies influenza virus vaccine, specific Allergy (Severe, Verified 07/17/18 14:33) GILLEAN BARRE SYNDROME Sulfa (Sulfonamide Antibiotics) Allergy (Unknown, Verified 07/17/18 13:54) Unknown Height/Weight/Isolation Height 5 ft 3 in Weight 70.5 kg Chemistry 01/12/19 01:28 Sodium 140 Potassium 3.1 L Chloride 107 Carbon Dioxide 24 Anion Gap 9.0 BUN 21 H Creatinine 0.98 Glucose 125 H Urinalysis 01/12/19 04:45 Urine Color Yellow Urine Appearance Cloudy H Urine pH 5.0 Ur Specific [place] 1.044 H Urine Protein Negative Urine Glucose (UA) Negative Urine Ketones Negative Urine Blood 2+ H Urine Nitrite Negative Urine Bilirubin Negative Microbiology 01/12/19 04:45 Urine,Clean Catch Urine Culture - Pending 01/12/19 03:09 Blood Blood Culture - Pending 01/12/19 01:28 Blood Blood Culture - Pending
[2019-01-12] MEDS ORDERED: SODIUM CHLORIDE 0.9% 1000ML 1,000 ML IV ONE (08:14)
--- NOTE | 2019-01-12 08:17 | Urology Consultation ---
Date of Consultation January 12, 2019 Assessment & Plan (1) Right ureteral stone: (2) Severe sepsis: 78yo F with likely obs R ureteral calculi with moderate hydronephrosis and sepsis. Difficult to determine based on IV contrast study. Keep NPO, strain all urine. Await repeat UC&S and BC, continue broad spectrum coverage based on past cultures until current cultures available. Findings reviewed with patient and Dr. Mckeon. Sepsis and UTI in the context of an obstructing renal stone, with hypotension. Covered with IV cefepime as inpatient. Will proceed to OR for urgent cysto, R RPG, stent placement, possible ureteroscopy, laser litho, stone basketing depending on findings. Risks and benefits to be reviewed with patient by Dr. Mckeon. OR notified. Surgery today. Thank you for allowing us to participate in the care of Ms. Andersen. History of Present Illness Reason for Consultation: R hydro, stones, sepsis Requesting Physician: Dr. Landis Attending Physician: Justin Landis, DO History of Present Illness 78yo F with PMHx osteoporosis and remote hx of nephrolithiasis requiring ESWL tx ~ 20 years ago presents to [facility] ED with R flank pain and vomiting x14 hours with assoicated abnormal UA. Evaluated by urgent care last evening, dx with UTI, placed on keflex. CT with contrast reveals moderate R hydronephrosis, distended bladder. Possibly 2 stones, obscured by contrast dye. Pt septic upon arrival to ED with soft BP, +lactic acid, leukocytosis. Stable kidney function. UA abnormal. Lactic acid improving with hydration, iv abx. Pt appears comfortable in hospital bed, no family at bedside. Good historian. Pt denies pain, nausea improved with antiemetics. Worried about her dog and the upcoming weather. Allergies Allergy/AdvReac Type Severity Reaction Status Date / Time influenza virus vaccine, Allergy Severe GILLEAN Verified 07/17/18 14:33 specific BARRE SYNDROME Sulfa (Sulfonamide Allergy Unknown Unknown Verified 07/17/18 13:54 Antibiotics) Home Medications Home Medications Medication Instructions Recorded Confirmed Type cholecalciferol (vitamin D3) 2 tab PO QAM 07/17/18 01/12/19 History [Vitamin D3] cyanocobalamin (vitamin B-12) 1,000 mcg PO QAM 07/17/18 01/12/19 History [Vitamin B-12] ferrous sulfate [iron] 325 mg PO QAM 07/17/18 01/12/19 History potassium chloride [Klor-Con M10] 10 meq PO QAM 07/17/18 01/12/19 History cranberry conc-ascorbic acid 1 cap PO DAILY 01/12/19 01/12/19 History Patient History Social History marital status: / Current Living Situation: Alone Feels Safe at Home: Yes Safety Concerns: Feels Safe At This Time Smoking Status: Never smoker Hx Alcohol Use: No Hx Substance Use: No Beliefs That Will Affect Care: None Preferred Language: Ukrainian Communication Ability: Effective Windows Security Analyst Required: No Review of Systems Constitutional: no fever, no chills and no fatigue Eyes: no problem reported Ear, Nose, Mouth, Throat: no ear pain Respiratory: no cough and no dyspnea Cardiovascular: no chest pain Gastrointestinal: no abdominal pain Genitourinary (Female): + dysuria, + urinary frequency and + urinary urgency; no hematuria and no flank pain Musculoskeletal: no back pain Integumentary: no acne Neurologic: no problem reported Psychiatric: no behavioral changes Endocrine: no fatigue Hematologic / Lymphatic: no easy bleeding and no coagulopathy Physical Exam 2 Vital Signs (Past 24 Hours): Last Vital Signs Temp 36.9 C 01/12/19 06:11 Pulse 87 01/12/19 07:58 Resp 18 01/12/19 06:12 BP 98/53 L 01/12/19 06:12 Pulse Ox 98 01/12/19 06:12 Constitutional: no acute distress Eyes: no nystagmus ENMT: Ears: + hearing impairment Neck: trachea midline Respiratory: no respiratory distress, no labored breathing and does not use accessory muscles Cardiovascular: Vessels: no JVD Gastrointestinal (Abdomen): Inspection/Auscultation: abdomen not distended and no abdominal edema Musculoskeletal: Head/Neck/Chest: + abnormal head shape Skin: no rashes, warm and dry Neurologic: awake; not confused and not obtunded Psychiatric: A+Ox3, euthymic affect Results & Data Laboratory Results Laboratory Results - last 48 hr 01/12/19 01/12/19 01/12/19 01:28 01:28 01:33 WBC 15.78 H RBC 3.84 L Hgb 11.6 L Hct 34.9 L MCV 90.9 MCH 30.2 MCHC 33.2 RDW Std Deviation 46.0 RDW Coeff of Addie 13.9 Plt Count 289 MPV 9.4 Immature Gran % (Auto) 0.4 Neut % (Auto) 94.8 Lymph % (Auto) 2.2 Pettis % (Auto) 2.4 Eos % (Auto) 0.1 Baso % (Auto) 0.1 Immature Gran # (Auto) 0.07 H Neut # (Auto) 14.95 H Lymph # (Auto) 0.35 L Pettis # (Auto) 0.38 Eos # (Auto) 0.01 Baso # (Auto) 0.02 APTT PTT Ratio ABG pH ABG pCO2 ABG pO2 ABG HCO3 ABG O2 Saturation ABG Base Excess Jeronimo Test Barometric Pressure Oxygen Given Sodium 140 Potassium 3.1 L Chloride 107 Carbon Dioxide 24 Anion Gap 9.0 BUN 21 H Creatinine 0.98 Est Cr Clr Drug Dosing 44.5 Est GFR ( Amer) 64.5 Est GFR (Non-Af Amer) 55.6 BUN/Creatinine Ratio 21.3 H Glucose 125 H Lactate 3.9 H* Calcium 8.1 L Magnesium 1.7 L Total Bilirubin 0.7 AST 44 H ALT 36 Alkaline Phosphatase 146 H Total Protein 6.9 Albumin 3.2 L Globulin 3.7 Albumin/Globulin Ratio 0.9 Lipase 81 TSH 1.630 Urine Color Urine Appearance Urine pH Ur Specific [place] Urine Protein Urine Glucose (UA) Urine Ketones Urine Blood Urine Nitrite Urine Bilirubin Urine Urobilinogen Ur Leukocyte Esterase Urine WBC (Auto) Urine RBC (Auto) U Hyaline Cast (Auto) U Epithel Cells (Auto) Urine Bacteria (Auto) Urine Yeast Influenza Type A (PCR) Influenza Type B (PCR) Blood Type Antibody Screen 01/12/19 01/12/19 01/12/19 01:48 02:30 03:09 WBC RBC Hgb Hct MCV MCH MCHC RDW Std Deviation RDW Coeff of Addie Plt Count MPV Immature Gran % (Auto) Neut % (Auto) Lymph % (Auto) Pettis % (Auto) Eos % (Auto) Baso % (Auto) Immature Gran # (Auto) Neut # (Auto) Lymph # (Auto) Pettis # (Auto) Eos # (Auto) Baso # (Auto) APTT 24.1 PTT Ratio 0.9 ABG pH ABG pCO2 ABG pO2 ABG HCO3 ABG O2 Saturation ABG Base Excess Jeronimo Test Barometric Pressure Oxygen Given Sodium Potassium Chloride Carbon Dioxide Anion Gap BUN Creatinine Est Cr Clr Drug Dosing Est GFR ( Amer) Est GFR (Non-Af Amer) BUN/Creatinine Ratio Glucose Lactate 2.4 H* Calcium Magnesium Total Bilirubin AST ALT Alkaline Phosphatase Total Protein Albumin Globulin Albumin/Globulin Ratio Lipase TSH Urine Color Urine Appearance Urine pH Ur Specific [place] Urine Protein Urine Glucose (UA) Urine Ketones Urine Blood Urine Nitrite Urine Bilirubin Urine Urobilinogen Ur Leukocyte Esterase Urine WBC (Auto) Urine RBC (Auto) U Hyaline Cast (Auto) U Epithel Cells (Auto) Urine Bacteria (Auto) Urine Yeast Influenza Type A (PCR) Neg for Influ A Influenza Type B (PCR) Neg for Influ B Blood Type Antibody Screen 01/12/19 01/12/19 01/12/19 04:14 04:45 05:07 WBC RBC Hgb Hct MCV MCH MCHC RDW Std Deviation RDW Coeff of Addie Plt Count MPV Immature Gran % (Auto) Neut % (Auto) Lymph % (Auto) Pettis % (Auto) Eos % (Auto) Baso % (Auto) Immature Gran # (Auto) Neut # (Auto) Lymph # (Auto) Pettis # (Auto) Eos # (Auto) Baso # (Auto) APTT PTT Ratio ABG pH Cancelled 7.44 ABG pCO2 Cancelled 35 ABG pO2 Cancelled 124 H ABG HCO3 Cancelled 23 ABG O2 Saturation Cancelled 98.5 H ABG Base Excess Cancelled -0.4 Jeronimo Test Cancelled POS Barometric Pressure Cancelled 743.7 Oxygen Given Cancelled 2L Sodium Potassium Chloride Carbon Dioxide Anion Gap BUN Creatinine Est Cr Clr Drug Dosing Est GFR ( Amer) Est GFR (Non-Af Amer) BUN/Creatinine Ratio Glucose Lactate Calcium Magnesium Total Bilirubin AST ALT Alkaline Phosphatase Total Protein Albumin Globulin Albumin/Globulin Ratio Lipase TSH Urine Color Yellow Urine Appearance Cloudy H Urine pH 5.0 Ur Specific [place] 1.044 H Urine Protein Negative Urine Glucose (UA) Negative Urine Ketones Negative Urine Blood 2+ H Urine Nitrite Negative Urine Bilirubin Negative Urine Urobilinogen Negative Ur Leukocyte Esterase 3+ H Urine WBC (Auto) >30 H Urine RBC (Auto) 5-10 H U Hyaline Cast (Auto) 5-10 H U Epithel Cells (Auto) >30 H Urine Bacteria (Auto) Negative Urine Yeast Not Reportable Influenza Type A (PCR) Influenza Type B (PCR) Blood Type Antibody Screen 01/12/19 01/12/19 01/12/19 06:59 06:59 07:04 WBC RBC Hgb 10.3 L Hct 31.8 L MCV MCH MCHC RDW Std Deviation RDW Coeff of Addie Plt Count MPV Immature Gran % (Auto) Neut % (Auto) Lymph % (Auto) Pettis % (Auto) Eos % (Auto) Baso % (Auto) Immature Gran # (Auto) Neut # (Auto) Lymph # (Auto) Pettis # (Auto) Eos # (Auto) Baso # (Auto) APTT PTT Ratio ABG pH ABG pCO2 ABG pO2 ABG HCO3 ABG O2 Saturation ABG Base Excess Jeronimo Test Barometric Pressure Oxygen Given Sodium Potassium Chloride Carbon Dioxide Anion Gap BUN Creatinine Est Cr Clr Drug Dosing Est GFR ( Amer) Est GFR (Non-Af Amer) BUN/Creatinine Ratio Glucose Lactate 2.8 H* Calcium Magnesium Total Bilirubin AST ALT Alkaline Phosphatase Total Protein Albumin Globulin Albumin/Globulin Ratio Lipase TSH Urine Color Urine Appearance Urine pH Ur Specific [place] Urine Protein Urine Glucose (UA) Urine Ketones Urine Blood Urine Nitrite Urine Bilirubin Urine Urobilinogen Ur Leukocyte Esterase Urine WBC (Auto) Urine RBC (Auto) U Hyaline Cast (Auto) U Epithel Cells (Auto) Urine Bacteria (Auto) Urine Yeast Influenza Type A (PCR) Influenza Type B (PCR) Blood Type O Positive Antibody Screen NEGATIVE
--- NOTE | 2019-01-12 08:21 | CT Scan Report ---
CT abd pelvis IV con only CLINICAL HISTORY: 78 years-old Female presenting with renal colic. TECHNIQUE: Multidetector CT of the abdomen and pelvis was performed after the administration of intra venous contrast. IV contrast: 93 mL of Optiray 320. One or more dose lowering techniques were used co nsistent with the principles of ALARA (as low as reasonably achievable), including automatic exposure control, mA or kV adjustment to individual patient size, and/or use of iterative reconstruction. COMPARISON: None. CT DOSE (mGy.cm): The estimated cumulative dose is 339.56 mGy.cm. FINDINGS: Metal Cleaner topogram: Intramedullary nail fixation of the right femoral neck and proximal metadiaphysis. Lung bases: Aortic valve calcification and/or calcification of the origin of the right coronary arter y. Top normal cardiac size. No pericardial or pleural effusion. Minimal dependent changes likely atel ectasis. Mosaic attenuation suggest small airways disease. Liver: Normal morphology. Flash filling hemangioma suggested along the medial left hepatic lobe near the dome (series 3 image 60). Patent hepatic vasculature. Biliary: No intrahepatic or extrahepatic biliary ductal dilatation. Normal gallbladder. Pancreas: Normal. Spleen: Normal. Adrenal glands: Normal. Kidneys and ureters: Obstructing 4 mm calculus at the right ureterovesical junction with mild right c alyectasis and moderate right pelviectasis and distention of the right ureter. There is fat infiltrat ion in the region of the right renal pelvis and mild right perinephric fat stranding. Trace urothelia l thickening on the right. There is also suggestion of hyperdensity at the level of the right uretero vesical junction associated with the ureteral wall (series 3 image 387). Several renal cysts are evid ent bilaterally though primarily on the right. Slight delayed perfusion of the right kidney in compar nery to the left. Multiple nonobstructing left renal calculi. Punctate upper pole nonobstructing righ t renal calculus. Extrarenal pelvis on the left. No distention of the left ureter. Bladder: Normal. Pelvic organs: Uterus surgically absent. In the region of the perineum, 2 rim-enhancing collections a re evident, larger on the right. These measure 1.9 cm and 1.1 cm. These may be associated with the an al verge or posterior vulva. Bowel: Mild wall thickening of the rectum circumferentially. The remainder of the colon is under dist ended limiting evaluation. Intramural fat deposition at the hepatic flexure, nonspecific. Lipomatous hypertrophy of the ileocecal valve. The appendix is not visualized. No bowel obstruction. Trace hiata l hernia. Peritoneal cavity: No free fluid or intraperitoneal gas. Lymph nodes: No enlarged lymph nodes in the abdomen or pelvis. Vasculature: Atherosclerosis of the normal caliber abdominal aorta. IVC patent. Abdominal wall: Fat-containing periumbilical hernia. Coarse calcification in the right breast. Musculoskeletal: Incidental note made of a lipoma within the left rectus femoris. Intramedullary nail fixation in the right femoral neck and proximal metadiaphysis. Degenerative changes of the spine. IMPRESSION: 1. Obstructing 4 mm calculus at the right ureterovesical junction with mild right hydroureteronephro sis. Additionally, subtle hyperdensity associated with the distal right ureteral wall immediately dis juancho to the obstructing calculus could represent wall edema, debris, hemorrhage or underlying mass. Ur ologic consultation for follow-up direct visualization after stone passage recommended. 2. Nonobstructing punctate right renal calculus and multiple nonobstructing left renal calculi. 3. 2 rim-enhancing collections in the region of the perineum may be associated with the anal for ernestine st or posterior pole the. Differential considerations include perianal abscesses versus Bartholin's d uct cysts. Recommend direct visualization and/or gynecologic evaluation. The report will be called/faxed according to standard departmental protocol. Electronically signed by: Ortiz Lau M.D. 01/12/2019 8:19 AM
[2019-01-12] MEDS ORDERED: CEFEPIME CONSULT ACTIVE PRN (09:00)
[2019-01-12] MEDS ORDERED: CYANOCOBALAMIN 500 MCG TABLET (VITAMIN B-12) PO SCH (09:00)
[2019-01-12] MEDS: POTASSIUM CHLORIDE 40 MEQ in SODIUM CHLORIDE 0.9% 1000ML 1,000 ML IV SCH ×2 (09:13→16:41)
[2019-01-12 09:44] LABS: Estimated Average Glucose 114 mg/dl; Hemoglobin A1C 5.6 % (4.5-5.6)
[2019-01-12 12:47] LABS: Hematocrit (blood only) 31.8 % (37-47); Hemoglobin 10.3 g/dL (12.0-16.0)
[2019-01-12] MEDS ORDERED: ONDANSETRON INJ 2 MG/ML 2 ML VIAL ONE (13:05)
[2019-01-12] MEDS ORDERED: PHENYLEPHRINE 100MCG/ML 5ML SYR ONE (13:05)
[2019-01-12] MEDS ORDERED: ePHEDrine sulfate 50 MG/ML SYR ONE (13:05)
[2019-01-12] MEDS ORDERED: PROPOFOL IV EMULSION 10 MG/ML 20 ML VIAL IV ONE (13:05)
[2019-01-12] MEDS ORDERED: DEXAMETHASONE SOD INJ 4 MG/ML VIAL ONE (13:05)
[2019-01-12] MEDS ORDERED: LIDOCAINE HCL 2% 2 ML VIAL/AMP(20MG/ML) INFIL ONE (13:05)
[2019-01-12] MEDS ORDERED: MIDAZOLAM HCL 1 MG/ML 2ML VIAL ONE (13:06)
[2019-01-12] MEDS ORDERED: fentaNYL citrate 100 MCG/2 ML VIAL ONE (13:06)
--- NOTE | 2019-01-12 13:39 | Anesthesiology Consultation ---
Date of Service January 12, 2019 Assessment & Plan Chart Review Chart Review: Acceptable Risk for Surgery and Patient NOT seen in Pre Admission Testing Consults Requested none ASA ASA3 Proposed Anesthesia Anesthesia Type: General Risk / Benefits Reviewed With: PT / POA / Parent / Guardian, Accepts Plan and Informed Consent Obtained NPO Date Last Intake of Fluids: 01/12/19 Time Last Intake of Fluids: 09:00 Last Intake of Fluids Comment: sip for one pill Date Last Intake of Solids: 01/11/19 History Surgery Operation Date: 01/12/19 10:10 Proposed Procedures p Cystoscopy, Right Ureteral Stent Placement, Retrograde Pyelogram - Charles Mckeon MD Height/Weight Height: 5 ft 3 in Weight: 70.5 kg Allergies Allergy/AdvReac Type Severity Reaction Status Date / Time influenza virus vaccine, Allergy Severe GILLEAN Verified 07/17/18 14:33 specific BARRE SYNDROME Sulfa (Sulfonamide Allergy Unknown Unknown Verified 07/17/18 13:54 Antibiotics) Medications Home Medications Medication Instructions Recorded Confirmed Last Taken cholecalciferol (vitamin D3) 2 tab PO QAM 07/17/18 01/12/19 08/08/18 08:35 [Vitamin D3] cyanocobalamin (vitamin B-12) 1,000 mcg PO QAM 07/17/18 01/12/19 08/08/18 08:35 [Vitamin B-12] ferrous sulfate [iron] 325 mg PO QAM 07/17/18 01/12/19 08/08/18 08:35 potassium chloride [Klor-Con M10] 10 meq PO QAM 07/17/18 01/12/19 08/08/18 08:35 cranberry conc-ascorbic acid 1 cap PO DAILY 01/12/19 01/12/19 Unknown Active Medications Generic Name Dose Route Start Last Admin Trade Name Freq PRN Reason Stop Dose Admin Cyanocobalamin 1,000 mcg 01/12/19 09:00 01/12/19 08:34 Vitamin B-12 PO 02/11/19 08:59 1,000 mcg QAM MEGAN Administration Potassium Chloride 40 meq/ 1,020 mls @ 125 mls/hr 01/12/19 09:15 01/12/19 09: 13 Sodium Chloride IV 02/11/19 09:14 125 mls/hr .Q8H10M MEGAN Administration Tamsulosin HCl 0.4 mg 01/12/19 04:39 01/12/19 05:05 Flomax PO 02/11/19 04:38 0.4 mg QAM MEGAN Administration Past Medical History Medical History 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; 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 Hx of breast cancer R BREAST, 2000; S/P RADIATION Osteoarthritis Seizure x 1 EPISODE S/P BENIGN BRAIN TUMOR EXCISION 1998 Past Surgical History Surgical History History of brain surgery 1998; BENIGN TUMOR EXCISION History of hip surgery 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 Hx of hysterectomy Hx of lumpectomy breast Past Anesthesia History No Hx of Anesthesia Complications and No Family Hx of Anesthesia Complications History of PONV No Motion Sickness Screening History of Motion Sickness: No Social History Smoking Status: Never smoker Hx Alcohol Use: No Hx Substance Use: No Exercise / Class Metabolic Activity III < 4 Walking/Shop/Light housework Physical Exam Vital Signs Last Vital Signs Temp 36.8 C 01/12/19 11:48 Pulse 77 01/12/19 11:48 Resp 18 01/12/19 11:48 BP 91/52 L 01/12/19 11:48 Pulse Ox 95 01/12/19 11:48 ENMT Mouth: + edentulous Thyromental Distance: > or= 3.5 Finger Breadths Mallampati Class: II Neck normal visual inspection and trachea midline; neck extension not limited Respiratory normal respiratory effort Auscultation: lungs clear to auscultation bilaterally Cardiovascular Rate/Rhythm: regular rate and regular rhythm Heart Sounds: no murmur Vessels: no carotid bruit Neurologic moves all extremities Motor/Sensory: no sensory deficit Psychiatric Orientation: alert and oriented x 3 Testing Electrocardiogram Date: 01/12/19 Findings: + NSR @ (at 88) Chest X-Ray Date: 01/12/19 c/wonic lung disease; Laboratory Results 01/12/19 12:35 01/12/19 01:28 Blood Type O Positive 01/12/19 06:59 Antibody Screen NEGATIVE 01/12/19 06:59 APTT 24.1 Seconds (21.0-31.0) 01/12/19 01:48 Hemoglobin A1c 5.6 % (4.5-5.6) 01/12/19 06:59 Urine Color Yellow 01/12/19 04:45 Urine Appearance Cloudy (Clear) H 01/12/19 04:45 Urine pH 5.0 (4.5-7.5) 01/12/19 04:45 Ur Specific [place] 1.044 (1.000-1.030) H 01/12/19 04:45 Urine Protein Negative (Negative) 01/12/19 04:45 Urine Glucose (UA) Negative (Negative) 01/12/19 04:45 Urine Ketones Negative (Negative) 01/12/19 04:45 Urine Nitrite Negative (Negative) 01/12/19 04:45 Ur Leukocyte Esterase 3+ (Negative) H 01/12/19 04:45 Urine WBC (Auto) >30 /hpf (0-5) H 01/12/19 04:45 Urine RBC (Auto) 5-10 /hpf (0-4) H 01/12/19 04:45 U Hyaline Cast (Auto) 5-10 /lpf (0-5) H 01/12/19 04:45 U Epithel Cells (Auto) >30 /lpf (0-5) H 01/12/19 04:45 Urine Bacteria (Auto) Negative (Negative) 01/12/19 04:45
[2019-01-12] MEDS ORDERED: IOTHALAMATE MEGLUMINE II 17.2% 250 ML VIAL ONE (13:41)
[2019-01-12] MEDS ORDERED: PROMETHAZINE HCL 12.5 MG in SODIUM CHLORIDE 0.9% 50 ML IV PRN (13:54)
[2019-01-12] MEDS ORDERED: ePHEDrine sulfate 50 MG/ML AMP IV PRN (13:54)
[2019-01-12] MEDS ORDERED: NALOXONE HCL 0.4 MG/1 ML VIAL/CARP IV PRN (13:54)
[2019-01-12] MEDS ORDERED: ONDANSETRON INJ 2 MG/ML 2 ML VIAL IV PRN (13:54)
[2019-01-12] MEDS ORDERED: FLUMAZENIL 0.1 MG/1 ML 10 ML VIAL IV PRN (13:54)
[2019-01-12] MEDS ORDERED: ATROPINE SULFATE 0.1 MG/ML 10ML SYR IV PRN (13:54)
[2019-01-12] MEDS ORDERED: fentaNYL citrate 100 MCG/2 ML VIAL IV PRN (13:54)
[2019-01-12] MEDS ORDERED: LABETALOL HCL IV 5 MG/ML 20ML IV PRN (13:54)
--- NOTE | 2019-01-12 14:39 | Operative Report ---
Post Operative Report Pre & Post Diagnosis Operation Date: 01/12/19 10:10 Pre-Op Diagnosis: Right Ureteral Stone, Sepsis Post-Op Diagnosis: Right Ureteral Stone, Sepsis Procedure Operation Date: 01/12/19 10:10 Actual Procedures p Cystoscopy, Right Ureteral Stent Placement(Right) - Charles Mckeon MD Surgeon Markie Mckeon MD Log Processor Operator none Estimated Blood Loss 0 Findings Consistent with Post-Op Diagnosis Specimens None Description of Procedure Patient was identified in the preoperative holding area, appropriate informed consents reviewed and completed and the patient was transported to the operating suite. Upon arrival she received appropriate sedation. Of note she has been on antibiotics in the floor and received her doses as previously scheduled this morning. On arrival, she was placed in dorsal lithotomy position where she was sterilely prepped and draped in standard fashion. I passed a 22 Turkish cystoscope with 30 degree lens. Inspection revealed no abnormalities of the mucosa. Right ureter was cannulated with a sensor wire which immediately started to drain cloudy urine. I then passed a 6 Turkish by 24 cm double-J ureteral stent seeing a good curl in the kidney as well as the bladder. There was good urine drainage through the stent. I emptied the bladder and concluded the case. The patient was reversed from anesthesia and taken to the PACU in stable condition. There were no complications I attest to the content of the Intraoperative Record and any orders documented therein. Any exceptions are noted below.
--- NOTE | 2019-01-12 14:59 | Fluoroscopy Report ---
FL KUB CLINICAL HISTORY: 78 years-old Female presenting with RT CYSTO/LASER/STENT. TECHNIQUE: 2 fluoroscopic image(s) recorded as part of an intraoperative procedure. COMPARISON: CT from earlier the same day. FINDINGS/IMPRESSION: A guidewire was introduced into the right ureter and renal collecting system. Subsequently, a right u reteral stent was placed. Please see surgical report for further details. Fluoroscopy dosage (mGy): 0.59. Fluoroscopy time: 2.9 seconds. Number or time of fluoroscopic spot images: 0. Electronically signed by: Ortiz Lau M.D. 01/12/2019 2:57 PM
--- NOTE | 2019-01-12 15:38 | Anesthesiology Progress Note ---
Date of Service January 12, 2019 Anesthesia Post Procedure Vital Signs Vital Signs: Temp Pulse Pulse Pulse Resp BP BP 01/12/19 15:30 75 19 95/56 L 01/12/19 15:20 36.8 C 86 16 104/57 L 01/12/19 15:10 79 17 96/53 L 01/12/19 15:00 76 20 92/57 L 01/12/19 14:50 73 26 H 92/52 L 01/12/19 14:40 36.2 C L 71 16 83/50 L 01/12/19 13:31 37.1 C 82 20 100/54 L 01/12/19 11:48 36.8 C 77 18 91/52 L 01/12/19 07:58 87 01/12/19 06:12 81 18 98/53 L 01/12/19 06:11 36.9 C 86 16 100/59 L 01/12/19 05:56 89 18 97/50 L 01/12/19 05:38 89 18 88/44 L 01/12/19 05:13 96 H 18 82/41 L 01/12/19 03:40 89 18 114/54 L 01/12/19 02:32 88 18 97/50 L 01/12/19 01:37 86 18 110/61 01/12/19 01:27 01/12/19 01:00 86 20 113/60 01/12/19 00:52 37.8 C H 83 18 133/75 Pulse Ox 01/12/19 15:30 98 01/12/19 15:20 97 01/12/19 15:10 98 01/12/19 15:00 100 01/12/19 14:50 100 01/12/19 14:40 96 01/12/19 13:31 94 01/12/19 11:48 95 01/12/19 07:58 01/12/19 06:12 98 01/12/19 06:11 95 01/12/19 05:56 96 01/12/19 05:38 98 01/12/19 05:13 96 01/12/19 03:40 92 01/12/19 02:32 96 01/12/19 01:37 97 01/12/19 01:27 96 01/12/19 01:00 97 01/12/19 00:52 95 Notes Mental Status: alert / awake / arousable Patient Amnestic to Procedure: Yes Nausea / Vomiting: adequately controlled Pain: adequately controlled Airway Patency, RR, SpO2: stable & adequate BP & HR: stable & adequate Hydration State: stable & adequate Anesthetic Complications: no major complications apparent
[2019-01-12 15:59] VITALS: BP 100/62; PULSE 89; TEMP 98.6; O2SAT 96
--- NOTE | 2019-01-12 17:00 | Discharge Summary ---
Date of Service January 12, 2019 Admission HPI Per Admitting Provider History obtained from patient and records. Medical history significant for right breast cancer status post surgery, radiation, meningioma status post surgery, past history of seizure disorder not currently on AED therapy, chronic anemia (baseline hemoglobin of 10), history of Guillain [place] syndrome, urolithiasis. Recent confinement July 2018 under orthopedic service for right knee surgery. Few days history of achy right flank symptoms similar to kidney stone pain. Patient seen at Urgent Care center in [place]. She was told that she had a UTI but no kidney stone. No imaging done. Patient prescribed Keflex which made her "sicker." Patient had worsening right flank pain symptoms, nausea, coffee-ground emesis, usual loose stools nonbloody. Admits to taking OTC Excedrin medication for aches. Patient received IV Zosyn at the ER for sepsis. Medical History as above Surgical History : Knee surgery, hip surgery, breast surgery, urologic procedure , brain tumor surgery Family History : Diabetes Personal/Social history : Non-smoker, no EtOH intake, retired [employer] employee Admission Exam Per Admitting Provider GENERAL: Uncomfortable, dry heaving, no respiratory distress SKIN: pallor, warm HEENT: Pale palpebral conjunctivae, no ptosis, dry buccal mucosa NECK : Supple, no tenderness CHEST : Decreased breath sounds , no tenderness HEART : RRR, no obvious murmurs ABDOMEN: Some distention, epigastric tenderness BACk : right flank tenderness EXTREMITIES : No LE swelling/tenderness, no other conspicuous deformities noted NEUROLOGIC : Coherent, no facial asymmetry, no other gross focality Principal Diagnosis Renal Stone Patient did not have Sepsis Discharge Exam ROS-No Headache, No Visual Changes, No Nausea, No Vomiting, No Fever, No Chills , No Neck Pain or Stiffness, No Chest Pain, No Palpitations, No SOB, No TAMAYO, No Cough, No Sputum, No Wheezing, No Abdominal Pain, No Diarrhea, No Hematemesis, No Hemoptysis, No Unexpected Weight Loss, No Flank pain, No Melena, No Hematochezia, No Frequency, No Urgency, No Burning, No Hematuria, No Rashes, No Diaphoresis. Appetite is Normal Physical Exam Gen-AAO x 3, NAD, Afebrile Head-NCAT, EOMI, PERRLA, Anicteric Sclera, No Posterior Pharyngeal Erythema Neck-Supple, No JVD, No Thyromegaly, No Masses, No LAD, No Bruits Lungs-Clear to Auscultation Bilaterally, No Rales, No Rhonchi, No Wheezing, No Crepitus Chest-No S4, +S1, +S2, No S3, No Murmurs, No Rubs, No Gallops, No Ectopy Abdomen-Soft, Bowel Sounds Present, Non Tender, Non Distended, No Hepatomegaly, No Splenomegaly, No Palpable Masses, No Rebound, No Rigidity, No Guarding Musculoskeletal-Full Range of Motion Bilaterally, No CVAT Extremities-No Cyanosis, No Clubbing, No Edema Nuero-Cranial Nerves II-XII grossly intact, Motor WNL, DTRs WNL, Strength WNL, Non Focal Psych-Normal Mood Discharge Data Allergies Allergy/AdvReac Type Severity Reaction Status Date / Time influenza virus vaccine, Allergy Severe GILLEAN Verified 07/17/18 14:33 specific BARRE SYNDROME Sulfa (Sulfonamide Allergy Unknown Unknown Verified 07/17/18 13:54 Antibiotics) Consultations 01/12/19 03:48 ED Decision to Admit Stat 01/12/19 06:34 Consult Urology Routine Procedures Performed Operation Date: 01/12/19 10:10 Actual Procedures p Cystoscopy, Right Ureteral Stent Placement(Right) - Charles Mckeon MD Current Diagnoses Calculus of ureter (01/12/19) Allergies influenza virus vaccine, specific Allergy (Severe, Verified 07/17/18 14:33) GILLEAN BARRE SYNDROME Sulfa (Sulfonamide Antibiotics) Allergy (Unknown, Verified 07/17/18 13:54) Unknown Height/Weight/Isolation Height 5 ft 3 in Weight 70.5 kg Chemistry 01/12/19 01:28 Sodium 140 Potassium 3.1 L Chloride 107 Carbon Dioxide 24 Anion Gap 9.0 BUN 21 H Creatinine 0.98 Glucose 125 H Urinalysis 01/12/19 04:45 Urine Color Yellow Urine Appearance Cloudy H Urine pH 5.0 Ur Specific [place] 1.044 H Urine Protein Negative Urine Glucose (UA) Negative Urine Ketones Negative Urine Blood 2+ H Urine Nitrite Negative Urine Bilirubin Negative Microbiology 01/12/19 04:45 Urine,Clean Catch Urine Culture - Pending 01/12/19 03:09 Blood Blood Culture - Pending 01/12/19 01:28 Blood Blood Culture - Pending Ordered Studies 01/12/19 01:20 US gallbladder Urgent 01/12/19 02:43 CT abd pelvis IV con only Urgent 01/12/19 10:30 FL KUB Routine 01/12/19 14:30 FL fluoroscopy <1hr Routine Hospital Course (1) Severe sepsis: SIRS plus lactic acid elevation secondary to complicated UTI/obstructive uropathy hx NSAID intake for aches poss etio : Esophagitis, MWT, gastritis, PUD Loose stools rule out C. difficile right breast cancer status post surgery, radiation meningioma status post surgery hx seizure disorder, stable off AED therapy history of Guillain [place] syndrome Hyperglycemia rule out DM Hypokalemia secondary to emesis, diarrhea DC on Ceftin x 7 Days Urology performed Renal stent and cleared her for DC Patient counseled about hazards of OTC NSAID intake. Total Time Total Time Spent Total Time Spent (In Minutes): 35 mins Total Time Includes: Examination of the Patient, Discharge Planning, Medication Reconciliation and Communication With Other Providers Discharge Plan Discharge Items Patient Disposition: Home - Self-Care Reason For Visit: SEPSIS, GI BLEED Discharge Diagnosis: Renal Stone UTI SIRS Discharge Goals: Improve disease control and Improve function Activity: Resume your previous activity Lifting: None Bathing: No limitations Sexual Activity: When tolerated Exercise/Sports: None Driving/Machine Use: No limitations Weightbearing: Left weightbearing and Right weightbearing Non-emergency contact: Primary Care Provider and Urologist Call non-emergency contact if: you have any medication questions, your symptoms worsen and you have a fever Follow-up/Referrals: Charles Mckeon MD [Physician] - Indu Ambrocio [Primary Care Provider] - (Routine follow up as needed) Diet: Regular Fluids: 2000ml (8 cups) Addtl Provider Instructions: Routine follow up Prescriptions: New acetaminophen [Mapap (acetaminophen)] 325 mg Tablet 650 mg PO Q4H PRN (Reason: fever or pain) Qty: 90 RF: 0 tamsulosin 0.4 mg Capsule 0.4 mg PO QAM Qty: 10 RF: 0 cefuroxime axetil 500 mg tablet 500 mg PO BID 105 Days Qty: 210 RF: 0 Continue cranberry conc-ascorbic acid 1 cap PO DAILY RF: 0 cyanocobalamin (vitamin B-12) [Vitamin B-12] 1,000 mcg Tablet 1,000 mcg PO QAM RF: 0 ferrous sulfate [iron] 325 mg (65 mg iron) Tablet 325 mg PO QAM RF: 0 cholecalciferol (vitamin D3) [Vitamin D3] 1,000 unit Capsule 2 tab PO QAM RF: 0 potassium chloride [Klor-Con M10] 10 mEq Tablet,Er Particles/Crystals 10 meq PO QAM RF: 0 Stand-Alone Forms: [facility] Discharge Orders: Discharge Order (Routine); Ordered 01/12/19 Ordered By: Justin Landis Admission Data Admit Date/Time: 01/12/19 04:31 Attending Provider: Justin Landis Admit Provider: Maykel Tinsley Primary Care Provider: Indu Ambrocio Other Providers: Maykel Tinsley ; Cole Rose ; Santos Adamson ; Alf Ortiz I. ; Charles Mckeon ; Arlin Grider ; Guillermo Joshua II ; Selin Wesley Service: Telemetry Medical
[2019-01-12] MEDS ORDERED: PANTOprazole 40 MG in SYRINGE 0 ML IV SCH (21:00)
[2019-01-13] MEDS ORDERED: CEFAZOLIN 2000MG 2,000 MG/15 ML SYR IV SCH (07:00)
--- NOTE | 2019-01-14 14:14 | Coding Query ---
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 Please assist us with the question(s) below: Please clarify if patient had sepsis or if it was ruled out ____ ( )Bacteremia (Nonspecific laboratory finding of bacteria in the blood) Specify Organism ( x) Present on Admission ( ) Not present on admission ( ) Unable to clinically determine ( ) Septicemia (Systemic disease associated with the presence of pathogenic microorganisms in the blood): Specify Organism ( ) Present on Admission ( ) Not present on admission (x ) Unable to clinically determine ( ) Sepsis Specify Organism Specify Associated Condition/Diagnosis ( ) Present on Admission ( ) Not present on admission ( x ) Unable to clinically determine ( ) Severe Sepsis (Sepsis associated with acute organ dysfunction) Specify Organism Specify Associated Condition/Diagnosis ( x) Present on Admission ( ) Not present on admission ( ) Unable to clinically determine ( ) Septic Shock (Severe sepsis with acute circulatory failure, unexplained by other causes) ( x ) Present on Admission ( ) Not present on admission ( ) Unable to clinically determine ( ) Other, patient has: MTDD
== END 2019-01-12 17:40 | disposition home or self-care (01) | DRG 871 ==
LOC: ED 00:54 → 2N 04:31

== ENCOUNTER 2019-01-13 16:13 | Inpatient (IN) ==
[2019-01-13] MEDS ORDERED: GI COCKTAIL ED USE PO ONE (16:23)
[2019-01-13] MEDS ORDERED: PROCHLORPERAZINE 2 ML IV ONE (16:23)
[2019-01-13] MEDS ORDERED: FAMOTIDINE 20MG/5ML IV PUSH IV STA (16:23)
[2019-01-13] MEDS ORDERED: SODIUM CHLORIDE 0.9% 1000ML 1,000 ML IV SCH (16:30)
[2019-01-13 16:50] LABS: Basophils # (auto) 0.03 K/uL (0-0.2); Basophils % (auto) 0.2 %; Eosinophils # (auto) 0.03 K/uL (0-0.5); Eosinophils % (auto) 0.2 %; Hematocrit (blood only) 33.7 % (37-47); Hemoglobin 10.8 g/dL (12.0-16.0); Immature Granulocytes # (auto) 0.04 K/uL (0.00-0.02); Immature Granulocytes % (auto) 0.3 %; Lymphocytes # (auto) 0.51 K/uL (1.2-3.4); Lymphocytes % (auto) 3.6 %; Mean Corpuscular Volume 92.8 fL (80-100); Mean Platelet Volume 9.3 fL (7.4-10.4); Monocytes # (auto) 0.31 K/uL (0.11-0.59); Monocytes % (auto) 2.2 %; Neutrophils # (auto) 13.43 K/uL (1.4-6.5); Neutrophils % (auto) 93.5 %; Platelet Count 260 K/uL (130-400); RDW Coefficient of Variation 14.4 % (11.5-14.5); RDW Standard Deviation 49.1 fL (36.4-46.3); Red Blood Count 3.63 M/uL (4.2-5.4); White Blood Count 14.35 K/uL (4.8-10.8)
--- NOTE | 2019-01-13 16:59 | XRay Report ---
XR chest 1V portable CLINICAL HISTORY: Nausea and vomiting COMPARISON STUDY: 01/12/2019 FINDINGS: The cardiac and mediastinal contours remain stable. There are progressive right basilar opa cities, likely atelectatic although an infectious/inflammatory process could appear similar. There is no failure. There are no large pleural effusions. There is no free intraperitoneal air.[ IMPRESSION: Progressive right basilar opacities, statistically atelectatic. Electronically signed by: Bimal Taylor M.D. 01/13/2019 4:58 PM
--- NOTE | 2019-01-13 17:04 | XRay Report ---
XR KUB CLINICAL HISTORY: Nausea and vomiting. History of stent placement. COMPARISON STUDY: 01/12/2019 FINDINGS: There is a double-pigtail right-sided nephroureteral stent. There is a 4.5 mm faint calcifi cation adjacent to the lateral margin of the stent at the lower sacral level. There is a 4 mm left re nal calculus. There are several pelvic basin calcifications likely representing phleboliths. There is elongation of the right lobe of the liver. There is no pathologic bowel dilatation IMPRESSION: 1. Right-sided nephroureteral stent 2. Nonspecific 4.5 mm calcification adjacent to the lateral margin of the stent at the lower sacral l evel 3. Left-sided nephrolithiasis 4. No evidence of pathologic bowel dilatation Electronically signed by: Bimal Taylor M.D. 01/13/2019 5:03 PM
[2019-01-13 17:23] LABS: Alanine Aminotransferase 23 U/L (12-78); Albumin Globulin Ratio 0.7 (0.9-2); Albumin Level 2.9 gm/dl (3.4-5.0); Alkaline Phosphatase 119 U/L (45-117); Aspartate Aminotransferase 16 U/L (15-37); BUN Creatinine Ratio 15.5 (10-20); Bilirubin,Total 0.4 mg/dl (0.2-1); Blood Urea Nitrogen 11 mg/dl (7-18); Calcium 8.1 mg/dl (8.5-10.1); Carbon Dioxide 26 mmol/L (21-32); Chloride 109 mmol/L (98-107); Creatinine Clr Calc Pharmacy 62.5 ml/min; Est GFR (African American) 93.6; Est GFR (Non-African American) 80.8; Globulin 4.2 gm/dl (2.5-4.0); Glucose 127 mg/dl (70-99); Potassium 3.6 mmol/L (3.5-5.1); Sodium 142 mmol/L (136-145); Total Protein 7.1 gm/dl (6.4-8.2); Troponin I < 0.015 ng/ml (0-0.045)
[2019-01-13 17:57] LABS: Influenza A virus by PCR Neg for Influ A (Neg); Influenza B virus by PCR Neg for Influ B (Neg)
[2019-01-13] MEDS ORDERED: SODIUM CHLORIDE 0.9% 1000ML 1,000 ML IV STA (18:02)
[2019-01-13] MEDS ORDERED: cefTRIAXone SODIUM 1,000 MG/50 ML BAG IV STA (18:03)
--- NOTE | 2019-01-13 18:13 | History & Physical Report ---
Date of Service January 13, 2019 Assessment & Plan (1) Sepsis: Admission within 24 hours with sepsis secondary to obstructed right-sided renal stone, status post right ureteric stent placement Readmission today secondary to ongoing nausea vomiting Chest x-ray shows right basilar infiltrate, possible secondary to aspiration Order for blood culture Procalcitonin level elevated more than 16 Lactic acid was 2.4 yesterday, repeat level ordered Broad-spectrum antibiotic with IV Zosyn, IV fluids Present on Admission?: Yes (2) Pneumonia: Possible aspiration pneumonia for ongoing nausea vomiting Empiric antibiotic with IV Zosyn Chest x-ray shows right basilar infiltrate (3) Right ureteral stone: Status post right ureteric stent placement yesterday 01/12/[address] Mckeon Does not have any flank pain X-ray of KUB shows IMPRESSION: 1. Right-sided nephroureteral stent 2. Nonspecific 4.5 mm calcification adjacent to the lateral margin of the stent at the lower sacral level 3. Left-sided nephrolithiasis 4. No evidence of pathologic bowel dilatation Ordered for UA culture On empiric antibiotic with IV Zosyn (4) Leukocytosis: Secondary to sepsis, aspiration pneumonitis, WBC 17 K Ordered for blood culture, urine culture Empiric antibiotic with IV Zosyn Present on Admission?: Yes (5) Nausea vomiting and diarrhea: Started yesterday after being discharged home No complaint of left flank pain, no fever chills X-ray of KUB shows no evidence of bowel obstruction Patient reports a very poor appetite Had bowel movement/diarrhea Possible differentials: Secondary to anesthetics, antibiotic, viral gastroenteritis Clear liquid diet for now advance as tolerated IV fluids stool for C. difficile CODE STATUS: Full code Disposition: Expect her to be discharged home when medically stable Medicine follow-up with Dr. Jennifer Mckenna History of Present Illness Chief Complaint: Nausea vomiting Primary Care Provider: Indu Ambrocio This is a 78-year-old female with past medical history of chronic anemia, history of seizure disorder, off antiseizure medications, history of Guillain- [place] syndrome, history of chronic diarrhea, history of right breast cancer status post surgery, radiation Patient was admitted to [facility] yesterday, for right-sided obstructed 4 mm renal stone with moderate hydronephrosis, sepsis Underwent right ureteric stent placement by Dr. Mckeon yesterday 01/12/2019 Postprocedure patient felt well, did not had any flank pain, tolerated diet, patient was discharged home Patient reports after returning home, patient started to feel nauseous, Had very poor appetite, ate a piece of cracker and took her antibioticCeftin which was prescribed for possible complicated UTI secondary to kidney stone Patient reports of nausea, vomiting right after that No complaint of abdominal pain, no fever or chills Woke up in the morning with similar symptoms of nausea, dry heaving Had episode of diarrhea (chronic) Tried to drink Gatorade, resulted in vomiting, [place] very weak and wiped out Came to the ER for evaluation No report of fever or chills, no abdominal pain, no cramps, no flank pain, had episode of diarrhea, no blood in stool, denies of any cough, no shortness of breath, no dyspnea on exertion Reports of increased frequency/dysuria which is common after ureteric stent placement, no report of hematuria Allergies Allergy/AdvReac Type Severity Reaction Status Date / Time influenza virus vaccine, Allergy Severe GILLEAN Verified 01/13/19 17: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 Sulfa (Sulfonamide Allergy Unknown Unknown Verified 01/13/19 17:18 Antibiotics) Home Medications Home Medications Medication Instructions Recorded Confirmed Type cholecalciferol (vitamin D3) 2 tab PO QAM 07/17/18 01/13/19 History [Vitamin D3] cyanocobalamin (vitamin B-12) 1,000 mcg PO QAM 07/17/18 01/13/19 History [Vitamin B-12] ferrous sulfate [iron] 325 mg PO QAM 07/17/18 01/13/19 History potassium chloride [Klor-Con M10] 10 meq PO QAM 07/17/18 01/13/19 History acetaminophen [Mapap 650 mg PO Q4H PRN #90 tab 01/12/19 01/13/19 Rx (acetaminophen)] cefuroxime axetil 500 mg PO BID 105 Days #210 tab 01/12/19 01/13/19 Rx tamsulosin 0.4 mg PO QAM #10 cap 01/12/19 01/13/19 Rx cranberry extract [Cranberry 500 mg PO DAILY 01/13/19 01/13/19 History Concentrate] Past Med/Surg History Medical History 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; 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 Hx of breast cancer R BREAST, 2000; S/P RADIATION Osteoarthritis Seizure x 1 EPISODE S/P BENIGN BRAIN TUMOR EXCISION 1998 Surgical History History of brain surgery 1998; BENIGN TUMOR EXCISION History of hip surgery 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 Hx of hysterectomy Hx of lumpectomy breast Social History marital status: / Current Living Situation: Alone Feels Safe at Home: Yes Smoking Status: Never smoker Hx Alcohol Use: No Hx Substance Use: No Beliefs That Will Affect Care: None Preferred Language: Irish Review of Systems All systems reviewed & are unremarkable except as noted in HPI & below Physical Exam 2 Vital Signs (Past 24 Hours): Last Vital Signs Temp 37.1 C 01/13/19 16:17 Pulse 69 01/13/19 17:12 Resp 18 01/13/19 17:12 BP 140/67 01/13/19 17:12 Pulse Ox 98 01/13/19 17:12 Constitutional: WD/WN, vitals as above well developed; no acute distress Eyes: PERRL, conjunctivae normal, anicteric sclerae ENMT: external ear and nose normal, oropharynx normal Neck: trachea midline, no thyromegaly Respiratory: normal respiratory effort, lungs clear to auscultation normal respiratory effort; no respiratory distress and no cough Auscultation: no crackles, no rales, no rhonchi and no wheezes Cardiovascular: RRR, no murmur, no edema Gastrointestinal (Abdomen): normal bowel sounds, soft, nontender, no hepatosplenomegaly No CVA tenderness Musculoskeletal: no cyanosis or clubbing, extremities motor strength 5/5 Skin: no rashes, warm and dry Neurologic: PERRL, EOMI, accommodation nl, no face palsy, no dysarthria Psychiatric: A+Ox3, euthymic affect Code Status & VTE Plan Code Status CODE STATUS: Full code VTE Prophylaxis Plan VTE Prophylaxis will be ordered: Yes _ (1) Sepsis Sepsis type: sepsis due to unspecified organism Qualified Code(s): A41.9 - Sepsis, unspecified organism (2) Pneumonia Aspiration pneumonia type: Laterality: right Lung location: lower lobe of lung Pneumonia type: due to unspecified organism Qualified Code(s): J18.1 - Lobar pneumonia, unspecified organism
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
[2019-01-13] MEDS ORDERED: PIPERACILL/TAZOBAC CONSULT ACTIVE PRN (20:34)
[2019-01-13] MEDS ORDERED: ACETAMINOPHEN 325 MG TAB PO PRN (20:34)
[2019-01-13] MEDS: NORMOSOL-R 1,000 ML IV SCH (20:56)
[2019-01-13] MEDS ORDERED: PIPERACILLIN/TAZOBACTAM 3.375 GM in DEXTROSE 5% 100 ML IV ONE (21:00)
[2019-01-13] MEDS: ONDANSETRON INJ 2 MG/ML 2 ML VIAL IV PRN (21:02)
[2019-01-14] MEDS: PIPERACILLIN/TAZOBACTAM 3.375 GM in DEXTROSE 5% 100 ML IV SCH ×3 (02:06→17:56)
[2019-01-14] MEDS: NORMOSOL-R 1,000 ML IV SCH (07:17)
[2019-01-14] MEDS: TAMSULOSIN HCL 0.4 MG CAP PO SCH (07:18)
[2019-01-14] MEDS: CHOLECALCIFEROL 1,000 UNITS TAB PO SCH (07:18)
[2019-01-14] MEDS: POTASSIUM CHLORIDE 10 MEQ TABCR PO SCH (07:18)
[2019-01-14] MEDS: FERROUS SULFATE 325 MG TAB PO SCH (07:18)
[2019-01-14] MEDS: CYANOCOBALAMIN 500 MCG TABLET (VITAMIN B-12) PO SCH (07:18)
[2019-01-14 07:34] LABS: Hemoglobin 10.2 g/dL (12.0-16.0); Mean Corpuscular Hgb Conc 31.9 g/dL (32-36); Mean Corpuscular Volume 93.3 fL (80-100); Mean Platelet Volume 9.1 fL (7.4-10.4); Platelet Count 235 K/uL (130-400); RDW Coefficient of Variation 14.4 % (11.5-14.5); RDW Standard Deviation 49.6 fL (36.4-46.3); Red Blood Count 3.43 M/uL (4.2-5.4); White Blood Count 9.51 K/uL (4.8-10.8)
[2019-01-14 08:12] LABS: BUN Creatinine Ratio 15.6 (10-20); Calcium 7.8 mg/dl (8.5-10.1); Creatinine Clr Calc Pharmacy 69.2 ml/min; Est GFR (African American) 99.3; Est GFR (Non-African American) 85.6; Potassium 3.4 mmol/L (3.5-5.1)
[2019-01-14 08:55] LABS: Appearance Urine Cloudy (Clear); Bacteria Urine Automated Negative (Negative); Bilirubin Urine Negative (Negative); Blood Urine 3+ (Negative); Color Urine Yellow; Epithelial Cell Urine Auto >30 /lpf (0-5); Glucose Urine UA Negative (Negative); Ketones Urine Trace (Negative); Leukocyte Esterase Urine 1+ (Negative); Nitrite Urine Negative (Negative); Protein Urine 1+ (Negative); RBC Urine Automated >30 /hpf (0-4); Specific Gravity Urine 1.019 (1.000-1.030); Urobilinogen Urine Negative (Negative); pH Urine 5.5 (4.5-7.5)
[2019-01-14] MEDS ORDERED: POTASSIUM CHLORIDE 10 MEQ TABCR PO STA (08:58)
[2019-01-14] MEDS ORDERED: CRANBERRY EXTRACT 500 MG PO SCH (09:00)
[2019-01-14] MEDS: NSS + 20MEQ KCL 20 MEQ/1,000 ML BAG IV SCH ×2 (10:44→23:07)
[2019-01-14] MEDS: ONDANSETRON INJ 2 MG/ML 2 ML VIAL IV PRN (13:25)
--- NOTE | 2019-01-14 17:59 | Hospitalist Progress Note ---
Date of Service January 14, 2019 Assessment & Plan (1) Nausea vomiting and diarrhea: -symptom persistes possible viral gastroenteritis ? ordered for bowel rest, scheduled compazine , IV fluid admitted with intractable N/V after being discharged to home on 01/12/19 No complaint of left flank pain, no fever chills X-ray of KUB shows no evidence of bowel obstruction Present on Admission?: Yes (2) Sepsis: resolved normal Lactic acid level , normal WBC cont IV fluid, Abx , bowel rest for ongoing N/v initial admission on 01/12/19 with sepsis secondary to obstructed right-sided renal stone, status post right ureteric stent placement readmission within 24 hrs secondary to ongoing nausea vomiting Chest x-ray shows right basilar infiltrate, possible secondary to aspiration follow blood culture Procalcitonin level elevated more than 16-improved to 11 with IV Abx and IVF Lactic acid was 2.4 level- normalized ( 0.8 ) Present on Admission?: Yes (3) Pneumonia: Possible aspiration pneumonia for ongoing nausea vomiting Empiric antibiotic Chest x-ray shows right basilar infiltrate Present on Admission?: Yes (4) Right ureteral stone: Status post right ureteric stent placement on 01/12/[address] Mckeon Does not have any flank pain X-ray of KUB shows IMPRESSION: 1. Right-sided nephroureteral stent 2. Nonspecific 4.5 mm calcification adjacent to the lateral margin of the stent at the lower sacral level 3. Left-sided nephrolithiasis 4. No evidence of pathologic bowel dilatation Ordered for UA culture On empiric antibiotic (5) Leukocytosis: Secondary to sepsis, aspiration pneumonitis, WBC 17 K-normal level today HYPOKALEMIA : due to ongoing GI loss N/V/Diarrhea replaced follow lytes CODE STATUS: Full code Disposition: Expect her to be discharged home when medically stable Medicine follow-up with Dr. Jennifer Mckenna Subjective continues to feel nauseus episode of vomiting with trial of solid no complain of abdominal pain has ongoing diarrhea -chronic no fever or chills no complain of flank pain no urinary symptom Physical Exam 2 Vital Signs (Past 24 Hours): Last Vital Signs Temp 36.8 C 01/14/19 15:14 Pulse 69 01/14/19 15:14 Resp 18 01/14/19 15:14 BP 171/89 H 01/14/19 15:14 Pulse Ox 93 01/14/19 15:14 Constitutional: WD/WN, vitals as above well developed and + acute distress (due to nausea /vomiting) Eyes: PERRL, conjunctivae normal, anicteric sclerae ENMT: external ear and nose normal, oropharynx normal Neck: trachea midline, no thyromegaly Respiratory: normal respiratory effort, lungs clear to auscultation normal respiratory effort; no respiratory distress and no cough Auscultation: no crackles, no rales, no rhonchi and no wheezes Cardiovascular: RRR, no murmur, no edema Gastrointestinal (Abdomen): normal bowel sounds, soft, nontender, no hepatosplenomegaly Musculoskeletal: no cyanosis or clubbing, extremities motor strength 5/5 Skin: no rashes, warm and dry Neurologic: PERRL, EOMI, accommodation nl, no face palsy, no dysarthria Psychiatric: A+Ox3, euthymic affect _ (1) Leukocytosis Leukocytosis type: unspecified Qualified Code(s): D72.829 - Elevated white blood cell count, unspecified (2) Sepsis Sepsis type: sepsis due to unspecified organism Qualified Code(s): A41.9 - Sepsis, unspecified organism (3) Pneumonia Aspiration pneumonia type: Laterality: right Lung location: lower lobe of lung Pneumonia type: due to unspecified organism Qualified Code(s): J18.1 - Lobar pneumonia, unspecified organism
[2019-01-14] MEDS ORDERED: PROMETHAZINE HCL 12.5 MG in SODIUM CHLORIDE 0.9% 50 ML IV PRN (20:35)
[2019-01-15] MEDS: PROCHLORPERAZINE 10 MG in SYRINGE 8 ML IV SCH ×5 (01:06→23:21)
[2019-01-15] MEDS: cefTRIAXone SODIUM 1,000 MG in DEXTROSE 5% 50 ML IV SCH (01:07)
[2019-01-15 07:35] LABS: Hematocrit (blood only) 31.3 % (37-47); Hemoglobin 10.1 g/dL (12.0-16.0); Mean Corpuscular Hgb Conc 32.3 g/dL (32-36); Mean Corpuscular Volume 92.3 fL (80-100); Mean Platelet Volume 9.3 fL (7.4-10.4); Platelet Count 258 K/uL (130-400); RDW Coefficient of Variation 14.2 % (11.5-14.5); RDW Standard Deviation 47.5 fL (36.4-46.3); Red Blood Count 3.39 M/uL (4.2-5.4); White Blood Count 8.36 K/uL (4.8-10.8)
[2019-01-15 08:03] LABS: BUN Creatinine Ratio 11.5 (10-20); Creatinine Clr Calc Pharmacy 72.6 ml/min; Est GFR (African American) 100.8; Potassium 3.1 mmol/L (3.5-5.1)
[2019-01-15] MEDS: POTASSIUM CHLORIDE 10 MEQ TABCR PO SCH (08:37)
[2019-01-15] MEDS: TAMSULOSIN HCL 0.4 MG CAP PO SCH (08:37)
[2019-01-15] MEDS: CYANOCOBALAMIN 500 MCG TABLET (VITAMIN B-12) PO SCH (08:37)
[2019-01-15] MEDS: FERROUS SULFATE 325 MG TAB PO SCH (08:37)
[2019-01-15] MEDS: CHOLECALCIFEROL 1,000 UNITS TAB PO SCH (08:37)
[2019-01-15] MEDS: NSS + 20MEQ KCL 20 MEQ/1,000 ML BAG IV SCH ×2 (11:36→23:21)
[2019-01-15] MEDS: PANTOprazole 40 MG in SYRINGE 0 ML IV SCH (11:36)
[2019-01-15] MEDS ORDERED: POTASSIUM CHLORIDE 20 MEQ TABCR PO STA (14:40)
--- NOTE | 2019-01-15 18:44 | Hospitalist Progress Note ---
Date of Service January 15, 2019 Assessment & Plan (1) Nausea vomiting and diarrhea: Symptoms has resolved Tolerating clear, denies of any abdominal pain or discomfort possible viral gastroenteritis Will advance diet to full liquid, advance to solid tomorrow if GI symptoms are resolved admitted with intractable N/V after being discharged to home on 01/12/19 No complaint of left flank pain, no fever chills X-ray of KUB shows no evidence of bowel obstruction (2) Sepsis: resolved normal Lactic acid level , normal WBC On IV Rocephin medically for possible complicated UTI: Recent sepsis with obstructed right ureteric stone status post stent placement initial admission on 01/12/19 with sepsis secondary to obstructed right-sided renal stone, status post right ureteric stent placement readmission within 24 hrs secondary to ongoing nausea vomiting Chest x-ray shows right basilar infiltrate, possible secondary to aspiration follow blood culture Procalcitonin level elevated more than 16-improved to 11 with IV Abx and IVF Lactic acid was 2.4 level- normalized ( 0.8 ) (3) Pneumonia: No complaint of fever, no hypoxia Doubt pneumonia (4) Right ureteral stone: Status post right ureteric stent placement on 01/12/[address] Mckeon Does not have any flank pain X-ray of KUB shows IMPRESSION: 1. Right-sided nephroureteral stent 2. Nonspecific 4.5 mm calcification adjacent to the lateral margin of the stent at the lower sacral level 3. Left-sided nephrolithiasis 4. No evidence of pathologic bowel dilatation On empiric antibiotic (5) Leukocytosis: Resolved, normal white count today HYPOKALEMIA : due to ongoing GI loss History of chronic diarrhea No further episode of nausea vomiting replaced follow lytes CODE STATUS: Full code Disposition: To be discharged home when medically stable Medicine follow-up with Dr. Jennifer Mckenna Subjective Did not had any episode of nausea altered today Feels much better No fever chills No body ache Urinary symptoms To keep fluids to full liquid Apprehensive about starting solid diet Willing to advance to solids tomorrow if no nausea Physical Exam 2 Vital Signs (Past 24 Hours): Last Vital Signs Temp 37 C 01/15/19 15:17 Pulse 61 01/15/19 15:17 Resp 20 01/15/19 15:17 BP 126/75 01/15/19 15:17 Pulse Ox 91 01/15/19 15:17 Constitutional: WD/WN, vitals as above well developed Eyes: PERRL, conjunctivae normal, anicteric sclerae ENMT: external ear and nose normal, oropharynx normal Neck: trachea midline, no thyromegaly Respiratory: normal respiratory effort, lungs clear to auscultation normal respiratory effort; no respiratory distress and no cough Auscultation: no crackles, no rales, no rhonchi and no wheezes Cardiovascular: RRR, no murmur, no edema Gastrointestinal (Abdomen): normal bowel sounds, soft, nontender, no hepatosplenomegaly Musculoskeletal: no cyanosis or clubbing, extremities motor strength 5/5 Skin: no rashes, warm and dry Neurologic: PERRL, EOMI, accommodation nl, no face palsy, no dysarthria Psychiatric: A+Ox3, euthymic affect _ (1) Leukocytosis Leukocytosis type: unspecified Qualified Code(s): D72.829 - Elevated white blood cell count, unspecified (2) Sepsis Sepsis type: sepsis due to unspecified organism Qualified Code(s): A41.9 - Sepsis, unspecified organism (3) Pneumonia Aspiration pneumonia type: Laterality: right Lung location: lower lobe of lung Pneumonia type: due to unspecified organism Qualified Code(s): J18.1 - Lobar pneumonia, unspecified organism
[2019-01-16] MEDS: cefTRIAXone SODIUM 1,000 MG in DEXTROSE 5% 50 ML IV SCH (02:11)
[2019-01-16] MEDS: PROCHLORPERAZINE 10 MG in SYRINGE 8 ML IV SCH ×2 (05:14→12:09)
[2019-01-16 07:01] LABS: Calcium 7.3 mg/dl (8.5-10.1); Est GFR (African American) 108.2; Est GFR (Non-African American) 93.4; Potassium 3.4 mmol/L (3.5-5.1)
[2019-01-16] MEDS: FERROUS SULFATE 325 MG TAB PO SCH (10:46)
[2019-01-16] MEDS: TAMSULOSIN HCL 0.4 MG CAP PO SCH (10:47)
[2019-01-16] MEDS: POTASSIUM CHLORIDE 20 MEQ TABCR PO SCH (10:47)
[2019-01-16] MEDS: CYANOCOBALAMIN 500 MCG TABLET (VITAMIN B-12) PO SCH (10:48)
[2019-01-16] MEDS: CHOLECALCIFEROL 1,000 UNITS TAB PO SCH (10:48)
[2019-01-16] MEDS: PANTOprazole 40 MG in SYRINGE 0 ML IV SCH (10:49)
[2019-01-16] MEDS: NSS + 20MEQ KCL 20 MEQ/1,000 ML BAG IV SCH (12:07)
[2019-01-16] MEDS ORDERED: POTASSIUM CHLORIDE 10 MEQ TABCR PO STA (15:44)
[2019-01-16] MEDS ORDERED: PROCHLORPERAZINE 10 MG in SYRINGE 8 ML IV PRN (15:47)
--- NOTE | 2019-01-16 17:29 | Hospitalist Progress Note ---
Date of Service January 16, 2019 Assessment & Plan (1) Nausea vomiting and diarrhea: Symptoms has resolved possible viral gastroenteritis resolved after 48 hours of IV fluids and bowel rest Diet advanced to solid, tolerating well, plan for discharge home tomorrow admitted with intractable N/V after being discharged to home on 01/12/19 No complaint of left flank pain, no fever chills X-ray of KUB shows no evidence of bowel obstruction (2) Sepsis: resolved normal Lactic acid level , normal WBC IV fluid discontinued, patient tolerating solid diet Antibiotic changed to ciprofloxacin, follow urine culture Was started on IV Rocephin medically for possible complicated UTI: Recent sepsis with obstructed right ureteric stone status post stent placement initial admission on 01/12/19 with sepsis secondary to obstructed right-sided renal stone, status post right ureteric stent placement readmission within 24 hrs secondary to ongoing nausea vomiting Chest x-ray shows right basilar infiltrate, possible secondary to aspiration follow blood culture Procalcitonin level elevated more than 16-improved to 11 with IV Abx and IVF Lactic acid was 2.4 level- normalized ( 0.8 ) (3) Pneumonia: Doubt any aspiration pneumonitis, no evidence of pneumonia Antibiotic changed to ciprofloxacin due to recent obstructed ureteric stone, status post stent placement No complaint of fever, no hypoxia Doubt pneumonia PRN (4) Right ureteral stone: Status post right ureteric stent placement on 01/12/[address] Mckeon Does not have any flank pain X-ray of KUB shows IMPRESSION: 1. Right-sided nephroureteral stent 2. Nonspecific 4.5 mm calcification adjacent to the lateral margin of the stent at the lower sacral level 3. Left-sided nephrolithiasis 4. No evidence of pathologic bowel dilatation On empiric antibiotic initially was on IV Rocephin, changed to p.o. Cipro, follow urine culture (5) Leukocytosis: Resolved, normal white count HYPOKALEMIA : due to ongoing GI loss History of chronic diarrhea/frequent urinary syndrome No nausea vomiting tolerating diet well IV fluids discontinued Ordered for p.o. potassium replacement, patient chronically takes 20 mg p.o. potassium daily-continued follow lytes CODE STATUS: Full code Disposition: Plan to discharge home tomorrow no further episode of nausea or vomiting, tolerating diet She is scheduled for urology follow-up with Dr. Mckeon obstructed renal stone/ ureteric stent Medicine follow-up with Dr. Jennifer Mckenna Subjective No nausea vomiting, tolerating solid food No fever or chills, wants to know repeat KUB of abdomen can be done prior she is discharged, No flank pain, no urinary symptoms Physical Exam 2 Vital Signs (Past 24 Hours): Last Vital Signs Temp 36.8 C 01/16/19 15:43 Pulse 75 01/16/19 15:43 Resp 18 01/16/19 15:43 BP 146/95 H 01/16/19 15:43 Pulse Ox 95 01/16/19 15:43 Constitutional: WD/WN, vitals as above well developed; no acute distress ( due to nausea /vomiting) Eyes: PERRL, conjunctivae normal, anicteric sclerae ENMT: external ear and nose normal, oropharynx normal Neck: trachea midline, no thyromegaly Respiratory: normal respiratory effort, lungs clear to auscultation normal respiratory effort; no respiratory distress and no cough Auscultation: no crackles, no rales, no rhonchi and no wheezes Cardiovascular: RRR, no murmur, no edema Gastrointestinal (Abdomen): normal bowel sounds, soft, nontender, no hepatosplenomegaly Musculoskeletal: no cyanosis or clubbing, extremities motor strength 5/5 Skin: no rashes, warm and dry Neurologic: PERRL, EOMI, accommodation nl, no face palsy, no dysarthria Psychiatric: A+Ox3, euthymic affect _ (1) Leukocytosis Leukocytosis type: unspecified Qualified Code(s): D72.829 - Elevated white blood cell count, unspecified (2) Sepsis Sepsis type: sepsis due to unspecified organism Qualified Code(s): A41.9 - Sepsis, unspecified organism (3) Pneumonia Aspiration pneumonia type: Laterality: right Lung location: lower lobe of lung Pneumonia type: due to unspecified organism Qualified Code(s): J18.1 - Lobar pneumonia, unspecified organism
[2019-01-16] MEDS: CIPROFLOXACIN 500 MG TAB PO SCH (17:37)
[2019-01-17 07:06] VITALS: PULSE 69; TEMP 98.2; O2SAT 90
[2019-01-17 07:34] LABS: BUN Creatinine Ratio 6.1 (10-20); Calcium 7.8 mg/dl (8.5-10.1); Creatinine Clr Calc Pharmacy 77.6 ml/min; Est GFR (Non-African American) 88.9; Potassium 3.5 mmol/L (3.5-5.1)
[2019-01-17] MEDS: POTASSIUM CHLORIDE 20 MEQ TABCR PO SCH (08:09)
[2019-01-17] MEDS: CHOLECALCIFEROL 1,000 UNITS TAB PO SCH (08:09)
[2019-01-17] MEDS: CYANOCOBALAMIN 500 MCG TABLET (VITAMIN B-12) PO SCH (08:09)
[2019-01-17] MEDS: CIPROFLOXACIN 500 MG TAB PO SCH (08:10)
[2019-01-17] MEDS: FERROUS SULFATE 325 MG TAB PO SCH (08:10)
[2019-01-17] MEDS: TAMSULOSIN HCL 0.4 MG CAP PO SCH (08:10)
--- NOTE | 2019-01-17 08:32 | XRay Report ---
XR KUB CLINICAL HISTORY: 78 years-old Female presenting with renal stone. TECHNIQUE: Single supine view of the abdomen was obtained. COMPARISON: 01/13/2019. FINDINGS: Nonobstructive bowel gas pattern. No gross pneumoperitoneum. Right ureteral stent remains in place. The previously suggested calcification along the course of the right ureteral stent is now immediately apparent. Few pelvic calcifications, nonspecific and possibl y phleboliths. Bowel gas degrades evaluation for renal calculi. Internal fixation of the right femoral neck and proximal metadiaphysis. Degenerative changes of the s pine. IMPRESSION: 1. Bowel gas obscures visualization of renal calculi. 2. Right ureteral stent remains in place. Few scattered pelvic calcifications, possibly phleboliths. There is no well the linear calcification along the course of the stent demonstrated on the current exam. Electronically signed by: Ortiz Lau M.D. 01/17/2019 8:31 AM
[2019-01-17] MEDS ORDERED: PANTOprazole 40 MG TAB PO SCH (09:00)
[2019-01-17 09:20] VITALS: BP 150/80
--- NOTE | 2019-01-17 10:34 | Discharge Summary ---
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 Mckeon yesterday 01/12/2019 Postprocedure patient felt well, did not had any flank pain, tolerated diet, patient was discharged home Patient reports after returning home, patient started to feel nauseous, Had very poor appetite, ate a piece of cracker and took her antibioticCeftin which was prescribed for possible complicated UTI secondary to kidney stone Patient reports of nausea, vomiting right after that No complaint of abdominal pain, no fever or chills Woke up in the morning with similar symptoms of nausea, dry heaving Had episode of diarrhea (chronic) Tried to drink Gatorade, resulted in vomiting, [place] very weak and wiped out Came to the ER for evaluation No report of fever or chills, no abdominal pain, no cramps, no flank pain, had episode of diarrhea, no blood in stool, denies of any cough, no shortness of breath, no dyspnea on exertion Reports of increased frequency/dysuria which is common after ureteric stent placement, no report of hematuria Principal Diagnosis Nausea vomiting, possible viral gastroenteritis, right ureteric stone Discharge Exam Constitutional WD/WN, vitals as above well developed; no acute distress (due to nausea /vomiting) Very pleasant, denies of any discomfort, no nausea vomiting, tolerated meals Eyes PERRL, conjunctivae normal, anicteric sclerae ENMT external ear and nose normal, oropharynx normal Neck trachea midline, no thyromegaly Respiratory normal respiratory effort, lungs clear to auscultation normal respiratory effort; no respiratory distress and no cough Auscultation: no crackles, no rales, no rhonchi and no wheezes Cardiovascular RRR, no murmur, no edema Gastrointestinal (Abdomen) normal bowel sounds, soft, nontender, no hepatosplenomegaly Musculoskeletal no cyanosis or clubbing, extremities motor strength 5/5 Skin no rashes, warm and dry Neurologic PERRL, EOMI, accommodation nl, no face palsy, no dysarthria Psychiatric A+Ox3, euthymic affect Discharge Data Allergies Allergy/AdvReac Type Severity Reaction Status Date / Time influenza virus vaccine, Allergy Severe GILLEAN Verified 01/13/19 17: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 Sulfa (Sulfonamide Allergy Unknown Unknown Verified 01/13/19 17:18 Antibiotics) Consultations 01/13/19 18:01 ED Decision to Admit Stat 01/13/19 20:34 Consult Case Management - Discharge Planning Routine Hospital Course (1) Nausea vomiting and diarrhea: Symptoms has resolved No nausea vomiting for the past 24 hours, tolerating solid food, no abdominal pain or discomfort possible viral gastroenteritis resolved after 48 hours of IV fluids and bowel rest Stable to be discharged home today admitted with intractable N/V after being discharged to home on 01/12/19 No complaint of left flank pain, no fever chills X-ray of KUB shows no evidence of bowel obstruction (2) Sepsis: resolved normal Lactic acid level , normal WBC IV fluid discontinued, patient tolerating solid diet Antibiotic changed to ciprofloxacin, urine culture negative past Kidney stone this morning, x-ray of KUB shows patent right ureteric stent, no stone noted Patient will be discharged home, with no antibiotics, scheduled to follow-up with urology for right ureteric stent removal initial admission on 01/12/19 with sepsis secondary to obstructed right-sided renal stone, status post right ureteric stent placement readmission within 24 hrs secondary to ongoing nausea vomiting Chest x-ray shows right basilar infiltrate, possible secondary to aspiration follow blood culture Procalcitonin level elevated more than 16-improved to 11 with IV Abx and IVF Lactic acid was 2.4 level- normalized ( 0.8 ) Was started on IV Rocephin medically for possible complicated UTI: Recent sepsis with obstructed right ureteric stone status post stent placement Antibiotics removed, has no evidence of active infection, no UTI (3) Pneumonia: Doubt any aspiration pneumonitis, no evidence of pneumonia Antibiotic changed to ciprofloxacin due to recent obstructed ureteric stone, status post stent placement No complaint of fever, no hypoxia No evidence of pneumonia, patient does not need any ongoing antibiotic therapy (4) Right ureteral stone: Status post right ureteric stent placement on 01/12/[address] Mckeon Does not have any flank pain Able to pass stone this morning, Uteric stone sent to lab for analysis KUB 01/17/2019 shows: IMPRESSION: 1. Bowel gas obscures visualization of renal calculi. 2. Right ureteral stent remains in place. Few scattered pelvic calcifications, possibly phleboliths. There is no well the linear calcification along the course of the stent demonstrated on the current exam. Follow-up with urology for ureteric stent removal (5) Leukocytosis: Resolved, normal white count HYPOKALEMIA : Normal level today CODE STATUS: Full code Disposition: Stable to be discharged home today urology follow-up with Dr. Mckeon obstructed renal stone/ureteric stent Medicine follow-up with Dr. Jennifer Mckenna Total Time Total Time Spent Total Time Spent (In Minutes): Approximate 30 minutes Total Time Includes: Examination of the Patient, Discharge Planning and Medication Reconciliation Discharge Plan Discharge Items Patient Disposition: Home - Self-Care Reason For Visit: NAUSEA,VOMITING,PNEUMONIA Discharge Diagnosis: NAUSEA/VOMITING /VIRAL GASTROENTERITIS Discharge Goals: Decrease discomfort Activity: Resume your previous activity Non-emergency contact: Primary Care Provider Call non-emergency contact if: you have any medication questions Follow-up/Referrals: Charles Mckeon MD [Physician] - ( PER SCHEDULED APPOINTMENT ) Indu Ambrocio [Primary Care Provider] - (HOSPITAL FOLLOW UP IN A WEEK ) Diet: Regular Addtl Provider Instructions: FOLLOW UP WITH UROLOGY HOSPITAL FOLLOW UP WITH FAMILY PHYSICIAN IN A WEEK Prescriptions: Continue acetaminophen [Mapap (acetaminophen)] 325 mg Tablet 650 mg PO Q4H PRN (Reason: fever or pain) Qty: 90 RF: 0 cyanocobalamin (vitamin B-12) [Vitamin B-12] 1,000 mcg Tablet 1,000 mcg PO QAM RF: 0 ferrous sulfate [iron] 325 mg (65 mg iron) Tablet 325 mg PO QAM RF: 0 cholecalciferol (vitamin D3) [Vitamin D3] 1,000 unit Capsule 2 tab PO QAM RF: 0 potassium chloride [Klor-Con M10] 10 mEq Tablet,Er Particles/Crystals 10 meq PO QAM RF: 0 cranberry extract [Cranberry Concentrate] 500 mg Capsule 500 mg PO DAILY RF: 0 Discontinued tamsulosin 0.4 mg Capsule 0.4 mg PO QAM Qty: 10 RF: 0 cefuroxime axetil 500 mg tablet 500 mg PO BID 105 Days Qty: 210 RF: 0 Stand-Alone Forms: My [facility] Discharge Orders: Discharge Order (Routine); Ordered 01/17/19 Ordered By: Jenny José Admission Data Admit Date/Time: 01/13/19 18:52 Attending Provider: Jenny José Admit Provider: Jenny José Primary Care Provider: Indu Ambrocio Other Providers: Ab Leiva Service: Medical Other Interventions: Discharge Summary Assessment (RN) Last Done: 01/17/19 09:16
[2019-01-25 10:13] LABS: Component 2 DNR; Source Kidney
== END 2019-01-17 10:45 | disposition home or self-care (01) | DRG 871 ==
LOC: ED 16:13 → 2N 18:52 → 4E 01-14 00:13

== ENCOUNTER 2020-01-20 10:24 | Inpatient (IN) ==
--- OUTSIDE RECORDS SUMMARY | 2020-01-20 10:26 | External Medical Summary | Continuity of Care Document ---
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 Refills: 0 Iron 325 (65 Fe) MG Oral Tablet; TAKE 1 TABLET DAILY. Refills: 0 Vitamin B-12 1000 MCG Oral Tablet; Take 1 tablet daily Refills: 0 Vitamin D 1000 UNIT TABS; TAKE 1 TABLET DAILY. Refills: 0 Cranberry Plus Vitamin C 4200-20-3 MG-MG -UNIT Oral Capsule; TAKE 1 CAPSULE Daily Refills: 0 Procedures History of Hysterectomy Status: Complete d Immunizations Immunizations not documented Family History Father Family history of cerebrovascular accident (CVA) (V17.1) (Z8 2.3) Status: Active Social History - Smoking Status Never smoked tobacco Plan of Treatment Planned Observations Planned Goals not documented Results No Known Results Results not documented Encounters Appointment; Markie Mckeon M.D. 22-Jan-2019 13:00 Encounter Diagnosis: Problem not documented Appointment; Urology, Room 7 22-Jan-2019 12:45 Encounter Diagnosis: Problem not documented
--- OUTSIDE RECORDS SUMMARY | 2020-01-20 10:27 | External Medical Summary | Continuity of Care Document ---
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
[2020-01-20] MEDS ORDERED: ACETAMINOPHEN 1,000 MG/100 ML VIAL IV STA (10:58)
[2020-01-20] MEDS ORDERED: ONDANSETRON INJ 2 MG/ML 2 ML VIAL IV STA ×2 (10:58→11:33)
[2020-01-20] MEDS ORDERED: SODIUM CHLORIDE 0.9% 1000ML 1,000 ML IV ONE (10:58)
[2020-01-20 11:17] LABS: Basophils # (auto) 0.02 K/uL (0-0.2); Basophils % (auto) 0.1 %; Hematocrit (blood only) 37.9 % (37-47); Hemoglobin 12.6 g/dL (12.0-16.0); Immature Granulocytes # (auto) 0.04 K/uL (0.00-0.02); Immature Granulocytes % (auto) 0.2 %; Lymphocytes # (auto) 1.01 K/uL (1.2-3.4); Lymphocytes % (auto) 5.6 %; Mean Corpuscular Hemoglobin 30.9 pg (25-34); Mean Corpuscular Hgb Conc 33.2 g/dL (32-36); Mean Corpuscular Volume 92.9 fL (80-100); Mean Platelet Volume 9.8 fL (7.4-10.4); Monocytes # (auto) 1.04 K/uL (0.11-0.59); Monocytes % (auto) 5.8 %; Neutrophils # (auto) 15.91 K/uL (1.4-6.5); Neutrophils % (auto) 88.3 %; Platelet Count 234 K/uL (130-400); RDW Coefficient of Variation 13.4 % (11.5-14.5); RDW Standard Deviation 45.7 fL (36.4-46.3); Red Blood Count 4.08 M/uL (4.2-5.4); White Blood Count 18.02 K/uL (4.8-10.8)
[2020-01-20 11:25] LABS: Alanine Aminotransferase 13 U/L (12-78); Albumin Level 3.2 gm/dl (3.4-5.0); Aspartate Aminotransferase 10 U/L (15-37); BUN Creatinine Ratio 16.2 (10-20); Blood Urea Nitrogen 14 mg/dl (7-18); Calcium 8.5 mg/dl (8.5-10.1); Carbon Dioxide 25 mmol/L (21-32); Chloride 108 mmol/L (98-107); Est GFR (African American) 77.2; Est GFR (Non-African American) 66.6; Glucose 191 mg/dl (70-99); Lipase 78 U/L (73-393); Potassium 3.5 mmol/L (3.5-5.1); Sodium 140 mmol/L (136-145)
[2020-01-20 11:27] LABS: Albumin Globulin Ratio 0.8 (0.9-2); Alkaline Phosphatase 125 U/L (45-117); Bilirubin,Total 0.7 mg/dl (0.2-1); Globulin 3.9 gm/dl (2.5-4.0); Total Protein 7.1 gm/dl (6.4-8.2)
--- NOTE | 2020-01-20 11:46 | CT Scan Report ---
CT SCAN OF THE ABDOMEN AND PELVIS WITHOUT CONTRAST CLINICAL HISTORY: right flank pain, hx stones, hx rectal abscess COMPARISON STUDY: 01/21/2019 TECHNIQUE: CT scan of the abdomen and pelvis was performed from the lung bases to the proximal femurs . Images are reviewed in the axial, sagittal, and coronal planes. IV contrast was not administered fo r this examination. A dose lowering technique was utilized adhering to the principles of ALARA. CT DOSE: 673.30 mGycm FINDINGS: Lower chest: There is subtle dependent airspace opacities, atelectatic versus infectious/inflammatory . Liver: The unenhanced liver is normal in size, contour, and attenuation. There is no intrahepatic silvano iary ductal dilatation. Gallbladder: Unremarkable. Spleen: Normal in size and attenuation. Pancreas: Unremarkable. Adrenal glands: Unremarkable. Kidneys: There are multiple bilateral renal calculi. The largest on the left measures [address] on the right measures 2.5 mm. There is right-sided perinephric stranding. There is mild right-side d hydronephrosis and hydroureter. There is an extrarenal pelvis on the left. There is an obstructing proximal right ureteral calculus measuring 7 mm. This is at the inferior L4 level. No bladder calculi are visualized. Bowel: There are no transition zones indicate bowel obstruction. There is evidence for lower perirect al/anal wall thickening and there is a right-sided perianal drain. Evaluation for inflammatory change s is limited given the lack of intravenous contrast there is mild submucosal fat hypertrophy within t he right colon. Peritoneum: There is no intraperitoneal free air or abdominal ascites. There is a fat-containing lowe r abdominal anterior ventral hernia Vasculature: The abdominal aorta is normal in course and caliber. Adenopathy: None. Pelvic viscera: The uterus is surgically absent Skeletal structures: Postsurgical changes involve the right hip. There is a lipoma within the left pr oximal thigh anterior musculature. IMPRESSION: 1. No evidence of bowel obstruction. No evidence of free air 2. Bilateral nephrolithiasis 3. Obstructing 7 mm proximal right ureteral calculus 4. Lower perirectal/perianal soft tissue thickening. Right-sided perianal drain ACT 112: Negative or not required by law. Electronically signed by: Bimal Taylor M.D. 01/20/2020 11:45 AM
[2020-01-20] MEDS: SODIUM CHLORIDE 0.9% 1000ML 1,000 ML IV SCH ×2 (12:29→15:40)
[2020-01-20] MEDS ORDERED: TAMSULOSIN HCL 0.4 MG CAP PO ONE (12:35)
[2020-01-20 14:09] LABS: Appearance Urine Cloudy (Clear); Bacteria Urine Automated 4+ (Negative); Bilirubin Urine Negative (Negative); Blood Urine 2+ (Negative); Color Urine Yellow; Glucose Urine UA Negative (Negative); Ketones Urine Negative (Negative); Leukocyte Esterase Urine 2+ (Negative); Nitrite Urine Positive (Negative); Protein Urine 1+ (Negative); Specific Gravity Urine 1.016 (1.000-1.030); Urobilinogen Urine Negative (Negative); WBC Urine Automated >30 /hpf (0-5)
[2020-01-20] MEDS ORDERED: cefTRIAXone SODIUM 1,000 MG/50 ML BAG IV STA (14:30)
[2020-01-20] MEDS ORDERED: PROCHLORPERAZINE 1 ML IV ONE (15:31)
[2020-01-20] MEDS ORDERED: MoRPHine SULFATE 4 MG/ML 1 ML CARP\\VIAL IV STA (16:04)
--- NOTE | 2020-01-20 16:34 | History and Physical Report ---
DATE OF ADMISSION: 01/20/2020 CHIEF COMPLAINT: Right flank pain. HISTORY OF PRESENT ILLNESS: A 79-year-old female with past medical history significant for history of chronic anemia, history of seizure disorder - off anti-seizure medication, history of Guillain-[place] syndrome, history of chronic diarrhea, history of right breast cancer, status post surgery and radiation, history of kidney stones in the past and sepsis in the past, presents with right flank pain. The patient says last week she had some nausea that improved, but since last night, she had right flank pain, moderate in severity, no radiation, associated with some dry heaving and feeling chills, frequent urination, but denies any burning micturition, no hematuria,no abdominal pain, . because of above symptoms came ER and found to have again a 7 mm obstructing right ureteral calculus. The patient had mild temperature and feeling chills and has leukocytosis in the ER. Denies any chest pain, no shortness of breath. Denies any cough, no headaches, no blurred vision, no double vision, no earache, no runny nose, no sore throat. Otherwise, appetite is okay. Sleeps okay. Normal bowel movements. No swelling in the legs. The patient says she also has some chronic rectal abscess and she has a right-sided perianal drain, which is seen on the CAT scan. ALLERGIES: INFLUENZA VIRUS VACCINE, SULFA ANTIBIOTICS. PAST MEDICAL HISTORY: As mentioned above. PAST SURGICAL HISTORY: Benign brain tumor excision, right hip intertrochanteric femoral nailing, hysterectomy, breast lumpectomy. MEDICATIONS: The patient is on Excedrin 2 tablets p.r.n., vitamin D 2000 units p.o. a.m., cranberry extract 500 mg p.o. q.a.m., vitamin B12 1000 mcg p.o. a.m., ferrous sulfate 325 mg p.o. a.m., potassium chloride 10 mEq p.o. a.m., raloxifene 60 mg p.o. q.a.m. FAMILY HISTORY: Significant for diabetes. SOCIAL HISTORY: Nonsmoker. No alcohol use. Lives alone, ambulates without any help. Daughter and son live close by. REVIEW OF SYMPTOMS: As per HPI. Rest of the review of systems is negative. PHYSICAL EXAMINATION: GENERAL: The patient is of moderate build, not in acute distress. VITAL SIGNS: Temperature 37.6, pulse 90, respiratory rate 16, blood pressure 122/64, oxygen 96% on room air. HEENT: No pallor, no icterus. Pupils equal, round, reactive to light. NECK: No JVD, no neck masses, no carotid bruits. CARDIOVASCULAR: S1, S2, regular rate and rhythm, no murmur, no gallop. RESPIRATORY SYSTEM: Normal AP diameter. No accessory muscle use. No wheezing, no crackles. ABDOMEN: Soft, bowel sounds present. Nontender. No CVA tenderness. No distention. CENTRAL NERVOUS SYSTEM: Cranial nerves II-XII grossly intact. Nonfocal. EXTREMITIES: No edema, no erythema. LABORATORY DATA: WBC 18, hemoglobin 12.6, hematocrit 37.9, platelets 234. Sodium 140, potassium 3.5, chloride 108, bicarbonate 25, BUN 14, creatinine 0.8, serum glucose 191. Lactate pending. Calcium 8.5, total bilirubin 0.7, AST 10, ALT 13, alkaline phosphatase 125. Lipase 78. Urinalysis positive for nitrite and leukocyte esterase and +[address] abdomen and pelvis shows a 7 mm obstructing right ureteral calculus. Lower perirectal perianal soft tissue thickening, right-sided perianal drain seen. Bilateral nephrolithiasis, no evidence of bowel obstruction, no evidence of free air. EKG: Normal sinus rhythm, rate of 74, no significant change from previous EKG. ASSESSMENT AND PLAN: This is a 79-year-old female who presents with right renal colic. 1. Right renal colic, urinary tract infection. CAT scan showing 7 mm right obstructing ureteral calculus and also bilateral nephrolithiasis and urinalysis positive. In the Emergency Room, she was given Rocephin, Flomax. Will continue IV fluids at 125 mL per hour. Continue Rocephin. Follow the cultures. Continue Flomax. Iv pain med and antiemetics prn. Urology was notified by the Emergency Room. Await recommendations. Will keep npo after midnight.Monitor in the medical floor 2. History of seizure. Currently not on anti-seizure medications. 3. History of chronic anemia, on iron supplements. Hemoglobin is stable. 4. History of breast cancer, status post lumpectomy, on raloxifene. 5. Deep venous thrombosis prophylaxis, sequential compression devices for now. 6. Disposition: Close monitoring in the medical floor. Level 1, full code. MTDD
[2020-01-20] MEDS ORDERED: POLYETHYLENE (MIRALAX) 17 GM PACK PO PRN (17:58)
[2020-01-20] MEDS ORDERED: MoRPHine SULFATE 2 MG/ML CARP IV PRN (17:58)
[2020-01-20] MEDS ORDERED: SODIUM CHLORIDE 0.9% 1000ML 1,000 ML IV SCH (17:58)
[2020-01-20] MEDS ORDERED: ACETAMINOPHEN 325 MG TAB PO PRN (17:58)
[2020-01-20] MEDS ORDERED: SODIUM CHLORIDE 0.9% 500 ML IV SCH (18:15)
[2020-01-20] MEDS ORDERED: KETOROLAC TROMETHAMINE 15 MG/ML VIAL IV ONE (18:15)
[2020-01-20] MEDS ORDERED: PIPERACILL/TAZOBAC CONSULT ACTIVE PRN (18:37)
[2020-01-20] MEDS ORDERED: PIPERACILLIN/TAZOBACTAM 3.375 GM in DEXTROSE 5% 100 ML IV ONE (19:00)
--- NOTE | 2020-01-20 19:01 | Urology Consultation ---
Date of Consultation January 20, 2020 Assessment & Plan (1) Calculus of proximal right ureter: Obstructing stone with sudden onset of severe worsening of overall condition with sepsis and critical status. Patient is being fluid resuscitated. Was given Rocephin in the ER. Patient has obstructing stone. Risks and benefits are discussed at length. We will plan to proceed with urgent/emergent stent placement on right for an obstructing right-sided ureteral stone. (2) Sepsis: (3) UTI (urinary tract infection): History of Present Illness Attending Physician: Sameer Burt MD History of Present Illness Consultation for obstructing stone with sudden onset of sepsis with high temperature, tachycardia, acute delirium, and illness. Patient was admitted for obstructing stone developed subsequent worsening of issues, pain discomfort flank pain into the groin and back. Right-sided obstructing stone approximately 6 mm with significant elevation of temperature now to 40.0 and tachycardia up to 120. Patient is being given supportive care. Due to emergent/urgent worsening of issues plan is for urgent stent placement. Allergies Allergy/AdvReac Type Severity Reaction Status Date / Time influenza virus vaccine, Allergy Severe GILLEAN Verified 01/20/20 11:45 specific BARRE SYNDROME Sulfa (Sulfonamide Allergy Unknown Unknown Verified 01/20/20 11:45 Antibiotics) Home Medications Home Medications Medication Instructions Recorded Confirmed Type cholecalciferol (vitamin D3) 2,000 mcg PO QAM 07/17/18 01/20/20 History [Vitamin D3] cyanocobalamin (vitamin B-12) 1,000 mcg PO QAM 07/17/18 01/20/20 History [Vitamin B-12] ferrous sulfate [iron] 325 mg PO QAM 07/17/18 01/20/20 History potassium chloride [Klor-Con M10] 10 meq PO QAM 07/17/18 01/20/20 History cranberry extract [Cranberry 500 mg PO QAM 01/13/19 01/20/20 History Concentrate] [id number]-pmgmwljaqdeie-yiagrsbt 2 tab PO UD 01/20/20 01/20/20 History [Excedrin Extra Strength] raloxifene 60 mg PO QAM 01/20/20 01/20/20 History Patient History Medical History 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 Hx of breast cancer R BREAST, 2000; S/P RADIATION 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; RESIDUAL MILD LE NEUROPATHY Osteoarthritis Seizure x 1 EPISODE S/P BENIGN BRAIN TUMOR EXCISION 1998 Surgical History History of brain surgery 1998; BENIGN TUMOR EXCISION History of hip surgery 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 Hx of hysterectomy Hx of lumpectomy breast Social History Preferred Language: Kyr[place] Communication Ability: Effective Visual Impairment: No Limitations Dowel Pointer Required: No Beliefs That Will Affect Care: None marital status: / Current Living Situation: Alone Other Information That Helps Us Care for You: No Feels Safe at Home: Yes Safety Concerns: Feels Safe At This Time Smoking Status: Never smoker Hx Alcohol Use: No Hx Substance Use: No Review of Systems Review of Systems: Unobtainable due to cognitive status Physical Exam Physical Exam: General: Acutely ill with sudden onset of severe sepsis HEENT: Normocephalic Atraumatic. Inspection normal. Cranial Nerves 2-12 Grossly intact. Normal inspection of face. Normal inspection of neck. Psychologic: Normal affect. Respiratory: Nonlabored. No use of accessory muscles. No tachypnea or dyspnea. Cardiovascular: No tachycardia Skin: [place] and Dry. No rashes or visible lesions. Extremities/Lymphatics: No edema Abdomen: Moderately distended. No rebound or guarding. : Flank pain Results & Data Vital Signs (Past 12 Hours) Vital Signs Temp Pulse Pulse Resp BP BP BP 01/20/20 18:02 40 C H 120 H 20 124/60 01/20/20 17:50 76 20 134/75 01/20/20 16:00 106 H 22 137/90 01/20/20 14:27 90 16 122/64 01/20/20 12:33 74 16 104/61 01/20/20 10:29 37.6 C H 88 20 118/68 Pulse Ox 01/20/20 18:02 90 01/20/20 17:50 96 01/20/20 16:00 98 01/20/20 14:27 96 01/20/20 12:33 01/20/20 10:29 94 PG Care Time/CCT Total # of Minutes Spent Total Time Spent with Patient: Total time spent is greater than 50% in coordination of care (as documented) at patient's floor/unit and/or counseling patient: Coding Level of Care Code 48260 Initial Inpt Care Lvl 3 Diagnoses Calculus of proximal right ureter N20.1 Sepsis A41.9 UTI (urinary tract infection) N39.0; R31.9 Hematuria presence: with hematuria Urinary tract infection type: site unspecified (1) UTI (urinary tract infection) Hematuria presence: with hematuria Urinary tract infection type: site unspecified Qualified Code(s): N39.0 - Urinary tract infection, site not specified; R31.9 - Hematuria, unspecified
[2020-01-20] MEDS ORDERED: IOTHALAMATE MEGLUMINE II 17.2% 250 ML VIAL ONE (19:02)
--- NOTE | 2020-01-20 19:04 | Anesthesiology Consultation ---
Date of Service January 20, 2020 Assessment & Plan ASA [id number] Proposed Anesthesia Anesthesia Type: General Risk / Benefits Reviewed With: PT / POA / Parent / Guardian, Accepts Plan and Informed Consent Obtained History Surgery Operation Date: 01/20/20 07:15 Proposed Procedures p Ureteral Stent Insertion/Removal(Right) - Guillermo Joshua DO s Cystoscopy - Guillermo Joshua DO Height/Weight Height: 5 ft 3 in Weight: 72.6 kg Allergies Allergy/AdvReac Type Severity Reaction Status Date / Time influenza virus vaccine, Allergy Severe GILLEAN Verified 01/20/20 11:45 specific BARRE SYNDROME Sulfa (Sulfonamide Allergy Unknown Unknown Verified 01/20/20 11:45 Antibiotics) Medications Home Medications Medication Instructions Recorded Confirmed Last Taken cholecalciferol (vitamin D3) 2,000 mcg PO QAM 07/17/18 01/20/20 01/19/20 [Vitamin D3] cyanocobalamin (vitamin B-12) 1,000 mcg PO QAM 07/17/18 01/20/20 01/19/20 [Vitamin B-12] ferrous sulfate [iron] 325 mg PO QAM 07/17/18 01/20/20 01/19/20 potassium chloride [Klor-Con M10] 10 meq PO QAM 07/17/18 01/20/20 01/19/20 cranberry extract [Cranberry 500 mg PO QAM 01/13/19 01/20/20 01/19/20 Concentrate] mhrecpe-tpspcihnfgcti-yvxgdgez 2 tab PO UD 01/20/20 01/20/20 01/19/20 21:00 [Excedrin Extra Strength] 2 tablets raloxifene 60 mg PO QAM 01/20/20 01/20/20 01/19/20 Active Medications Generic Name Dose Route Start Last Admin Trade Name Freq PRN Reason Stop Dose Admin Sodium Chloride 1,000 mls @ 125 mls/hr 01/20/20 17:58 01/20/20 18:45 Nss 1000ml IV 02/19/20 17:57 125 mls/hr .Q8H MEGAN Administration NPO Date Last Intake of Fluids: 01/19/20 Time Last Intake of Fluids: 17:00 Last Intake of Fluids Comment: per patient report Date Last Intake of Solids: 01/20/20 Time Last Intake of Solids: 00:00 Past Medical History Medical History 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 Hx of breast cancer R BREAST, 2000; S/P RADIATION 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; RESIDUAL MILD LE NEUROPATHY Osteoarthritis Seizure x 1 EPISODE S/P BENIGN BRAIN TUMOR EXCISION 1998 Exercise / Class Metabolic Activity III < 4 Walking/Shop/Light housework Past Surgical History Surgical History History of brain surgery 1998; BENIGN TUMOR EXCISION History of hip surgery 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 Hx of hysterectomy Hx of lumpectomy breast Past Anesthesia History No Hx of Anesthesia Complications and No Family Hx of Anesthesia Complications History of PONV No Hx of PONV and No Hx of Motion Sickness Social History Smoking Status: Never smoker Hx Alcohol Use: No Hx Substance Use: No Review of Systems denies cough/ colds/ chest pain/ SOB/ ANT Constitutional: + fever Respiratory: no cough and no dyspnea denies ANT Cardiovascular: no chest pain and no dyspnea on exertion Physical Exam Vital Signs Last Vital Signs Temp 40 C H 01/20/20 18:02 Pulse 120 H 01/20/20 18:02 Resp 20 01/20/20 18:02 BP 124/60 01/20/20 18:02 Pulse Ox 90 01/20/20 18:02 ENMT Mouth: + edentulous; no TMJ abnormality and no dentition abnormality Thyromental Distance: > or= 3.5 Finger Breadths Mallampati Class: II Neck neck extension not limited Respiratory normal respiratory effort; no respiratory distress Auscultation: lungs clear to auscultation bilaterally Cardiovascular Rate/Rhythm: regular rate and regular rhythm Neurologic moves all extremities Psychiatric Orientation: alert and oriented x 3 Testing Laboratory Results 01/20/20 10:40 01/20/20 10:40 Urine Color Yellow 01/20/20 13:45 Urine Appearance Cloudy (Clear) A 01/20/20 13:45 Urine pH 5.0 (4.5-7.5) 01/20/20 13:45 Ur Specific [place] 1.016 (1.000-1.030) 01/20/20 13:45 Urine Protein 1+ (Negative) H 01/20/20 13:45 Urine Glucose (UA) Negative (Negative) 01/20/20 13:45 Urine Ketones Negative (Negative) 01/20/20 13:45 Urine Nitrite Positive (Negative) A 01/20/20 13:45 Ur Leukocyte Esterase 2+ (Negative) H 01/20/20 13:45 Urine WBC (Auto) >30 /hpf (0-5) H 01/20/20 13:45 Urine RBC (Auto) 10-30 /hpf (0-4) H 01/20/20 13:45 U Hyaline Cast (Auto) 1-5 /lpf (0-5) 01/20/20 13:45 U Epithel Cells (Auto) 10-20 /lpf (0-5) H 01/20/20 13:45 Urine Bacteria (Auto) 4+ (Negative) H 01/20/20 13:45
--- NOTE | 2020-01-20 19:05 | Electrocardiogram Report ---
Test Reason : Blood Pressure : / mmHG Vent. Rate : 074 BPM Atrial Rate : 074 BPM P-R Int : 186 ms QRS Dur : 076 ms QT Int : 396 ms P-R-T Axes : 063 -07 073 degrees QTc Int : 439 ms Poor data quality, interpretation may be adversely affected Normal sinus rhythm Normal ECG When compared with ECG of 13-JAN-2019 16:37, No significant change was found Confirmed by Markie Fernandez ([id number]) on 01/20/2020 7:05:48 PM Referred By: REFERRED SELF Confirmed By:Dm Fernandez
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
[2020-01-20] MEDS ORDERED: MIDAZOLAM HCL 1 MG/ML 2ML VIAL ONE (19:31)
[2020-01-20] MEDS ORDERED: WATER, STERILE FOR INJ 10 ML VIAL ONE (19:31)
--- NOTE | 2020-01-20 20:00 | Operative Report ---
PG Post Operative Report Pre & Post Diagnosis Operation Date: 01/20/20 07:15 Pre-Op Diagnosis: RIGHT FLANK PAIN Post-Op Diagnosis: RIGHT FLANK PAIN I identified the patient and participated in the time-out.: Yes Procedure Operation Date: 01/20/20 07:15 Actual Procedures Cystoscopy with aspiration, retrograde pyelogram, and Ureteral Stent Insertion Right Surgeon Guillermo Joshua, II, DO Radar Technician None Estimated Blood Loss 1 Findings Consistent with Post-Op Diagnosis Stent placed in good position. Specimens Urine Right Renal Pelvis Drains 6 Fr x 24 cm Right stent Anesthesia Type MAC Complications none Disposition Disposition: Recovery Room Indications Patient with obstruction. Risks and benefits discussed at length. Description of Procedure Patient was consented and brought back to the operating room. Patient was placed under anesthesia in the supine position and moved to the dorsal lithotomy position. Patient was prepped and draped in the regular sterile fashion. A time out was completed. A 30degree Cystoscope was placed into the bladder and the entire bladder was examined. The UO's were identified. The UO was cannulized with a catheter and a retrograde pyelogram was completed. A wire was then placed. With the wire in place, a 6 Fr Double J stent was placed. It was confirmed with fluoroscopy. With the stent in place, the bladder was emptied. The scope was removed. The patient was cleaned, aroused from anesthesia, and transferred to the pacu in stable condition having tolerated the procedure well with no complications. I was present and participated in all aspects of the procedure. The patient will be monitored in the PACU until transferred. I attest to the content of the Intraoperative Record and any orders documented therein. Any exceptions are noted below.
--- NOTE | 2020-01-20 20:15 | Fluoroscopy Report ---
FL KUB HISTORY: 79 years-old Female RT CYSTO STENT right ureteral calculus COMPARISON: CT abdomen pelvis 01/20/2020 TECHNIQUE: 2 spot fluoroscopic images of the right abdomen and pelvis were obtained utilizing 15.0 se conds fluoroscopy time FINDINGS: Status post placement of a right ureteral stent which appears to be in satisfactory positioning. Pers istent dilation of the right renal pelvis. The previously noted right ureteral calculus is not identi fied. IMPRESSION: Fluoroscopic assistance as above. Please see procedural report for further details. ACT 112: Negative or not required by law. The above report was generated using voice recognition software. It may contain grammatical, syntax o r spelling errors. Electronically signed by: Bright Hunter M.D. 01/20/2020 8:14 PM
[2020-01-20] MEDS ORDERED: ePHEDrine sulfate 50 MG/ML AMP IV PRN (20:19)
[2020-01-20] MEDS ORDERED: ATROPINE SULFATE 0.1 MG/ML 10ML SYR IV PRN (20:19)
[2020-01-20] MEDS ORDERED: PHENYLEPHRINE HCL 10 MG/ML VIAL ONE (20:30)
[2020-01-20] MEDS ORDERED: ICU PROTOCOL FOR HYPERGLYCEMIA PRN (20:59)
[2020-01-20] MEDS ORDERED: STAT IV Infusion **Titration per Protocol STA (21:00)
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
[2020-01-20] MEDS ORDERED: VANCOMYCIN CONSULT ACTIVE PRN (21:04)
[2020-01-20] MEDS ORDERED: ePHEDrine sulfate 50 MG/ML SYR ONE (21:08)
[2020-01-20] MEDS ORDERED: PHENYLEPHRINE 100MCG/ML 5ML SYR ONE (21:08)
[2020-01-20] MEDS: PHENYLEPHRINE HCL 20 MG in DEXTROSE 5% 500 ML IV SCH (21:22)
[2020-01-20] MEDS: NORMOSOL-R 1,000 ML IV SCH (21:32)
--- NOTE | 2020-01-20 21:48 | Anesthesiology Progress Note ---
Date of Service January 20, 2020 Anesthesia Post Procedure Vital Signs Vital Signs: Temp Pulse Pulse Pulse Resp BP BP 01/20/20 20:45 110 H 21 86/45 L 01/20/20 20:35 36.9 C 105 H 18 83/40 L 01/20/20 20:25 101 H 17 80/44 L 01/20/20 20:15 102 H 17 73/40 L 01/20/20 20:07 36.7 C 104 H 21 78/40 L 01/20/20 18:02 40 C H 120 H 20 124/60 01/20/20 17:50 76 20 01/20/20 16:00 106 H 22 01/20/20 14:27 90 16 01/20/20 12:33 74 16 01/20/20 10:29 37.6 C H 88 20 118/68 BP Pulse Ox 01/20/20 20:45 94 01/20/20 20:35 95 01/20/20 20:25 95 01/20/20 20:15 91 01/20/20 20:07 93 01/20/20 18:02 90 01/20/20 17:50 134/75 96 01/20/20 16:00 137/90 98 01/20/20 14:27 122/64 96 01/20/20 12:33 104/61 01/20/20 10:29 94 Transfer of Care Handoff Completed per policy Notes Mental Status: alert / awake / arousable and participated in evaluation Patient Amnestic to Procedure: Yes Nausea / Vomiting: adequately controlled Pain: adequately controlled Airway Patency, RR, SpO2: stable & adequate BP & HR: stable & adequate Hydration State: stable & adequate Anesthetic Complications: no major complications apparent and Pt Satisfied with anesthetic care
[2020-01-20] MEDS ORDERED: VANCOMYCIN HCL 1,750 MG in SODIUM CHLORIDE 0.9% 500 ML IV ONE (22:00)
[2020-01-20 22:06] LABS: Hematocrit (blood only) 32.8 % (37-47); Hemoglobin 10.7 g/dL (12.0-16.0); Mean Corpuscular Hemoglobin 30.8 pg (25-34); Mean Corpuscular Hgb Conc 32.6 g/dL (32-36); Mean Corpuscular Volume 94.5 fL (80-100); Mean Platelet Volume 9.5 fL (7.4-10.4); Platelet Count 207 K/uL (130-400); RDW Coefficient of Variation 13.7 % (11.5-14.5); RDW Standard Deviation 47.1 fL (36.4-46.3); Red Blood Count 3.47 M/uL (4.2-5.4); White Blood Count 20.09 K/uL (4.8-10.8)
[2020-01-20 22:33] LABS: BUN Creatinine Ratio 12.8 (10-20); Calcium 7.6 mg/dl (8.5-10.1); Creatinine Clr Calc Pharmacy 42.6 ml/min; Est GFR (African American) 57.6; Est GFR (Non-African American) 49.7; Magnesium 1.4 mg/dl (1.8-2.4); Potassium 2.5 mmol/L (3.5-5.1)
[2020-01-20 22:38] LABS: Phosphorus 0.8 mg/dl (2.5-4.9)
[2020-01-20] MEDS ORDERED: POTASSIUM PHOS 3 MMOL/1 ML INFUSION IV STA (22:42)
[2020-01-20] MEDS ORDERED: NORMOSOL-R 1,000 ML IV ONE (22:55)
[2020-01-20] MEDS ORDERED: CALCIUM GLUCONATE 10% 1,000 MG in SODIUM CHLORIDE 0.9% 50 ML IV ONE (23:00)
[2020-01-20] MEDS ORDERED: POTASSIUM PHOSPHATE 40 MMOL in SODIUM CHLORIDE 0.9% 1000ML 1,000 ML IV ONE (23:30)
[2020-01-21] MEDS: MAGNESIUM SULFATE / D5W 1 GM/100 ML BAG IV SCH ×3 (00:06→03:47)
[2020-01-21] MEDS ORDERED: ALBUMIN 5% 250 ML IV ONE (00:22)
[2020-01-21] MEDS: PIPERACILLIN/TAZOBACTAM 3.375 GM in DEXTROSE 5% 100 ML IV SCH ×3 (01:13→16:55)
[2020-01-21] MEDS: PHENYLEPHRINE HCL 20 MG in DEXTROSE 5% 500 ML IV SCH ×2 (04:46→13:05)
[2020-01-21] MEDS: ONDANSETRON INJ 2 MG/ML 2 ML VIAL IV PRN ×2 (05:13→18:08)
[2020-01-21 07:06] LABS: Basophils # (auto) 0.02 K/uL (0-0.2); Basophils % (auto) 0.2 %; Hematocrit (blood only) 32.5 % (37-47); Hemoglobin 10.5 g/dL (12.0-16.0); Immature Granulocytes # (auto) 0.02 K/uL (0.00-0.02); Immature Granulocytes % (auto) 0.2 %; Lymphocytes # (auto) 0.38 K/uL (1.2-3.4); Lymphocytes % (auto) 2.9 %; Mean Corpuscular Hemoglobin 30.5 pg (25-34); Mean Corpuscular Hgb Conc 32.3 g/dL (32-36); Mean Corpuscular Volume 94.5 fL (80-100); Mean Platelet Volume 9.4 fL (7.4-10.4); Monocytes # (auto) 0.78 K/uL (0.11-0.59); Neutrophils # (auto) 11.89 K/uL (1.4-6.5); Neutrophils % (auto) 90.7 %; Platelet Count 204 K/uL (130-400); RDW Coefficient of Variation 13.8 % (11.5-14.5); Red Blood Count 3.44 M/uL (4.2-5.4); White Blood Count 13.09 K/uL (4.8-10.8)
[2020-01-21 07:26] LABS: BUN Creatinine Ratio 14.2 (10-20); Calcium 7.1 mg/dl (8.5-10.1); Creatinine Clr Calc Pharmacy 57.4 ml/min; Est GFR (African American) 80.6; Est GFR (Non-African American) 69.6; Magnesium 2.6 mg/dl (1.8-2.4); Potassium 3.3 mmol/L (3.5-5.1)
[2020-01-21 07:28] LABS: Troponin I 0.629 ng/ml (0-0.045)
--- NOTE | 2020-01-21 07:51 | Urology Progress Note ---
Date of Service January 21, 2020 Assessment & Plan (1) Calculus of proximal right ureter: 79yo F POD #1 s/p emergent stent placement secondary to sepsis Awaiting culture results, continue broad spectrum abx for now. Will require at least 14 days of antibiotic coverage from perspective . No further surgical intervention required at this time. Okay to d/c chaves catheter prior to discharge or when no longer required for strict I&O monitoring by primary service. Will arrange outpatient followup to discuss definitive stone management options once clinically improved on nonurgent basis. Thank you for allowing us to participate in the acute care of Mrs. Andersen. Please reconsult us with additional questions, concerns or changes in patient status. Subjective Pt resting in ICU bed this AM. Easily arousable to verbal stimulation, answering questions appropriately. Very fatigued, HPI somewhat limited due to this. She states she understands she has a stent and chaves catheter in place, tolerating well. Denies any UTI symptoms other admission other than foul smelling urine Review of Systems Review of Systems: All systems reviewed & are unremarkable except as noted in HPI & below Physical Exam Constitutional: + ill appearing, + frail appearing and comfortable; no acute distress, no altered mental status and not lethargic Eyes: no nystagmus ENMT: Ears: no hearing impairment Neck: trachea midline Respiratory: no respiratory distress, does not use accessory muscles, no cough and no grunting Cardiovascular: Vessels: no JVD Extremities: no edema Chest (Breasts): Chest: normal inspection of chest Gastrointestinal (Abdomen): Inspection/Auscultation: abdomen not distended and no abdominal edema Percussion/Palpation: abdomen soft; abdomen nontender Musculoskeletal: no cyanosis or clubbing, extremities motor strength 5/5 Head/Neck/Chest: normocephalic and head atraumatic Extremities: extremities normal to inspection Skin: no rashes, warm and dry Neurologic: awake; not confused and not obtunded Psychiatric: Orientation: alert and oriented x 3 Eye Contact: good eye contact Affect: no depressed affect Genitourinary: chaves draining clear yellow Lymphatic: no lymphadenopathy and no lymphedema Results & Data Vital Signs (Past 12 Hours) Vital Signs Temp Pulse Pulse Resp BP BP Pulse Ox 01/21/20 04:19 78 01/21/20 04:02 78 96/52 L 98 01/21/20 04:00 78 98 01/21/20 03:47 76 101/49 L 97 01/21/20 03:32 79 99/52 L 97 01/21/20 03:17 85 81/44 L 97 01/21/20 03:02 81 93/49 L 98 01/21/20 03:00 80 98 01/21/20 02:47 81 98/54 L 98 01/21/20 02:32 80 90/51 L 98 01/21/20 02:17 78 99/50 L 98 01/21/20 02:02 81 105/53 L 98 01/21/20 02:00 79 98 01/21/20 01:32 87 104/60 97 01/21/20 01:17 83 88/48 L 97 01/21/20 01:03 83 97 01/21/20 01:02 85 86/49 L 97 01/21/20 01:00 85 97 01/21/20 00:47 87 14 91/54 L 96 01/21/20 00:32 99 H 22 107/52 L 93 01/21/20 00:27 89 16 108/52 L 96 01/21/20 00:20 98 H 01/21/20 00:17 95 H 87/41 L 95 01/21/20 00:08 99 H 80/47 L 95 01/21/20 00:02 96 H 77/37 L 94 01/21/20 00:00 96 H 94 01/20/20 23:47 95 H 76/35 L 94 01/20/20 23:32 91 H 80/46 L 96 01/20/20 23:17 90 80/48 L 96 01/20/20 23:02 94 H 80/43 L 96 01/20/20 23:00 97 H 96 01/20/20 22:45 98 H 17 78/42 L 96 01/20/20 22:09 101 H 84/42 L 92 01/20/20 22:00 102 H 96 01/20/20 21:54 105 H 77/42 L 96 01/20/20 21:39 106 H 83/42 L 96 01/20/20 21:24 104 H 78/45 L 95 01/20/20 21:09 108 H 98/50 L 96 01/20/20 21:00 109 H 94 01/20/20 20:59 111 H 01/20/20 20:55 37 C 111 H 95 01/20/20 20:54 118 H 72/59 L 94 01/20/20 20:53 116 H 60/44 L 01/20/20 20:45 110 H 21 86/45 L 94 01/20/20 20:35 36.9 C 105 H 18 83/40 L 95 01/20/20 20:25 101 H 17 80/44 L 95 01/20/20 20:15 102 H 17 73/40 L 91 01/20/20 20:07 36.7 C 104 H 21 78/40 L 93 PG Care Time/CCT Total # of Minutes Spent Total Time Spent with Patient: Total time spent is greater than 50% in coordination of care (as documented) at patient's floor/unit and/or counseling patient: Coding Level of Care Code 19559 Subseq Hosp Care Lvl 2 Diagnoses Calculus of proximal right ureter N20.1
[2020-01-21 08:42] LABS: Phosphorus 4.4 mg/dl (2.5-4.9)
--- NOTE | 2020-01-21 08:59 | Anesthesiology Progress Note ---
Date of Service January 21, 2020 Anesthesia Post Procedure Vital Signs Vital Signs: Temp Pulse Pulse Pulse Resp BP BP 01/21/20 04:19 78 01/21/20 04:02 78 96/52 L 01/21/20 04:00 78 01/21/20 03:47 76 101/49 L 01/21/20 03:32 79 99/52 L 01/21/20 03:17 85 81/44 L 01/21/20 03:02 81 93/49 L 01/21/20 03:00 80 01/21/20 02:47 81 98/54 L 01/21/20 02:32 80 90/51 L 01/21/20 02:17 78 99/50 L 01/21/20 02:02 81 105/53 L 01/21/20 02:00 79 01/21/20 01:32 87 104/60 01/21/20 01:17 83 88/48 L 01/21/20 01:03 83 01/21/20 01:02 85 86/49 L 01/21/20 01:00 85 01/21/20 00:47 87 14 91/54 L 01/21/20 00:32 99 H 22 107/52 L 01/21/20 00:27 89 16 108/52 L 01/21/20 00:20 98 H 01/21/20 00:17 95 H 87/41 L 01/21/20 00:08 99 H 80/47 L 01/21/20 00:02 96 H 77/37 L 01/21/20 00:00 96 H 01/20/20 23:47 95 H 76/35 L 01/20/20 23:32 91 H 80/46 L 01/20/20 23:17 90 80/48 L 01/20/20 23:02 94 H 80/43 L 01/20/20 23:00 97 H 01/20/20 22:45 98 H 17 78/42 L 01/20/20 22:09 101 H 84/42 L 01/20/20 22:00 102 H 01/20/20 21:54 105 H 77/42 L 01/20/20 21:39 106 H 83/42 L 01/20/20 21:24 104 H 78/45 L 01/20/20 21:09 108 H 98/50 L 01/20/20 21:00 109 H 01/20/20 20:59 111 H 01/20/20 20:55 37 C 111 H 01/20/20 20:54 118 H 72/59 L 01/20/20 20:53 116 H 60/44 L 01/20/20 20:45 110 H 21 86/45 L 01/20/20 20:35 36.9 C 105 H 18 83/40 L 01/20/20 20:25 101 H 17 80/44 L 01/20/20 20:15 102 H 17 73/40 L 01/20/20 20:07 36.7 C 104 H 21 78/40 L 01/20/20 18:02 40 C H 120 H 20 124/60 01/20/20 17:50 76 20 01/20/20 17:15 113/69 01/20/20 17:00 91 H 20 01/20/20 16:30 104 H 20 01/20/20 16:00 111 H 106 H 20 01/20/20 15:47 107 H 20 01/20/20 15:44 107 H 20 137/90 01/20/20 14:27 90 16 01/20/20 12:33 74 16 01/20/20 10:29 37.6 C H 88 20 118/68 BP Pulse Ox 01/21/20 04:19 01/21/20 04:02 98 01/21/20 04:00 98 01/21/20 03:47 97 01/21/20 03:32 97 01/21/20 03:17 97 01/21/20 03:02 98 01/21/20 03:00 98 01/21/20 02:47 98 01/21/20 02:32 98 01/21/20 02:17 98 01/21/20 02:02 98 01/21/20 02:00 98 01/21/20 01:32 97 01/21/20 01:17 97 01/21/20 01:03 97 01/21/20 01:02 97 01/21/20 01:00 97 01/21/20 00:47 96 01/21/20 00:32 93 01/21/20 00:27 96 01/21/20 00:20 01/21/20 00:17 95 01/21/20 00:08 95 01/21/20 00:02 94 01/21/20 00:00 94 01/20/20 23:47 94 01/20/20 23:32 96 01/20/20 23:17 96 01/20/20 23:02 96 01/20/20 23:00 96 01/20/20 22:45 96 01/20/20 22:09 92 01/20/20 22:00 96 01/20/20 21:54 96 01/20/20 21:39 96 01/20/20 21:24 95 01/20/20 21:09 96 01/20/20 21:00 94 01/20/20 20:59 01/20/20 20:55 95 01/20/20 20:54 94 01/20/20 20:53 01/20/20 20:45 94 01/20/20 20:35 95 01/20/20 20:25 95 01/20/20 20:15 91 01/20/20 20:07 93 01/20/20 18:02 90 01/20/20 17:50 134/75 96 01/20/20 17:15 01/20/20 17:00 01/20/20 16:30 01/20/20 16:00 137/90 98 01/20/20 15:47 01/20/20 15:44 01/20/20 14:27 122/64 96 01/20/20 12:33 104/61 01/20/20 10:29 94 Notes Mental Status: alert / awake / arousable and participated in evaluation Nausea / Vomiting: adequately controlled Pain: adequately controlled Airway Patency, RR, SpO2: stable & adequate BP & HR: stable & adequate Hydration State: stable & adequate Anesthetic Complications: no major complications apparent and see Notes below Notes: pt resting in bed comfortably sleeping. O2 per NC 5L. VSS.
[2020-01-21] MEDS ORDERED: CRANBERRY EXTRACT 500 MG PO SCH (09:00)
[2020-01-21] MEDS: NORMOSOL-R 1,000 ML IV SCH ×3 (10:18→23:55)
[2020-01-21] MEDS ORDERED: Nursing to Pharmacy Communication ONE (10:21)
[2020-01-21] MEDS: POTASSIUM CHLORIDE 10 MEQ TABCR PO SCH (11:48)
[2020-01-21] MEDS: RALOXIFENE HCL 60 MG TAB PO SCH (11:49)
[2020-01-21] MEDS: TAMSULOSIN HCL 0.4 MG CAP PO SCH (11:50)
[2020-01-21 12:06] LABS: Basophils # (auto) 0.01 K/uL (0-0.2); Basophils % (auto) 0.1 %; Hematocrit (blood only) 31.3 % (37-47); Hemoglobin 10.3 g/dL (12.0-16.0); Immature Granulocytes # (auto) 0.03 K/uL (0.00-0.02); Immature Granulocytes % (auto) 0.2 %; Lymphocytes # (auto) 0.39 K/uL (1.2-3.4); Lymphocytes % (auto) 2.8 %; Mean Corpuscular Hemoglobin 30.7 pg (25-34); Mean Corpuscular Hgb Conc 32.9 g/dL (32-36); Mean Corpuscular Volume 93.4 fL (80-100); Mean Platelet Volume 9.8 fL (7.4-10.4); Monocytes # (auto) 0.68 K/uL (0.11-0.59); Monocytes % (auto) 4.8 %; Neutrophils # (auto) 13.01 K/uL (1.4-6.5); Neutrophils % (auto) 92.1 %; Platelet Count 177 K/uL (130-400); RDW Coefficient of Variation 13.8 % (11.5-14.5); RDW Standard Deviation 47.7 fL (36.4-46.3); Red Blood Count 3.35 M/uL (4.2-5.4); White Blood Count 14.12 K/uL (4.8-10.8)
[2020-01-21 12:25] LABS: Albumin Level 2.4 gm/dl (3.4-5.0); BUN Creatinine Ratio 12.6 (10-20); Calcium 7.1 mg/dl (8.5-10.1); Creatinine Clr Calc Pharmacy 58.1 ml/min; Est GFR (African American) 81.8; Est GFR (Non-African American) 70.6; Magnesium 2.6 mg/dl (1.8-2.4); Potassium 3.2 mmol/L (3.5-5.1)
[2020-01-21 12:33] LABS: Albumin Globulin Ratio 0.8 (0.9-2); Bilirubin,Total 0.5 mg/dl (0.2-1); Globulin 3.2 gm/dl (2.5-4.0); Phosphorus 3.9 mg/dl (2.5-4.9); Total Protein 5.6 gm/dl (6.4-8.2); Troponin I 0.748 ng/ml (0-0.045)
[2020-01-21] MEDS ORDERED: cefTRIAXone SODIUM 1,000 MG in DEXTROSE 5% 50 ML IV SCH (16:00)
[2020-01-21] MEDS ORDERED: POTASSIUM PHOSPHATE 21 MMOL in SODIUM CHLORIDE 0.9% 500 ML IV ONE (16:45)
[2020-01-21] MEDS: ENOXAPARIN INJ 40 MG/0.4 ML SYR SQ SCH (16:57)
--- NOTE | 2020-01-21 17:07 | Hospitalist Progress Note ---
Date of Service January 21, 2020 Assessment & Plan (1) Severe sepsis: Meet sepsis criteria on admission with tachycardia, febrile with Temp 40.C, Leukocytosis and required pressor CT abd/pelvis showed obstructing 7 mm proximal right ureteral calculus Elevated procalcitonin Urine cx positive for ECOLI Blood cx grew gram negative bacilli Received IV Vanco and Rocephin on admission Currently on IV Zosyn Received IVF and Off pressor BP stable Clinically stable Calculus of proximal right ureter: S/P day#1 emergent stent placement secondary to sepsis Urology on board Continue IV abx for now Elevated Troponin Due to demand ischemia from sepsis Troponin 0.9 on admission, then dropped to 0.6 - >0.7 EKG showed no ischemic changes Will consider to get an ECHO denies any chest pain Hypokalemia K 3.2 K replaced Monitor BMP Hx seizure. Currently not on anti-seizure medications. Stable History of breast cancer status post lumpectomy Continue raloxifene. Deep venous thrombosis prophylaxis On Lovenox Code Status Full code Admission and Anticipated Discharge Date Admission Date: January 20, 2020 Subjective Pt was seen and examined Lying in bed with no distress Pt said that she feels tired She said that her flank pain improves Denies any chest pain, palpitation, dizziness and SOB Physical Exam Physical Exam: General- No acute distress Head- atraumatic Eyes- PERRL, EOMI, ENT- oropharynx clear Neck- supple, no JVD Lungs- clear to auscultation Heart- regular rhythm; no murmur Abdomen- normal bowel sounds, soft, nontender Extremities- no calf tenderness Neuro- alert, oriented x 3; PERRL, EOMI; no facial palsy; no dysarthria Skin- warm & dry Results & Data ([facility]) Vital Signs (Past 12 Hours) Vital Signs Temp Pulse Resp BP Pulse Ox 01/21/20 15:30 80 98 01/21/20 15:16 81 103/55 L 97 01/21/20 15:15 81 97 01/21/20 15:01 80 97/52 L 97 01/21/20 15:00 81 97 01/21/20 14:46 80 102/51 L 97 01/21/20 14:45 79 98 01/21/20 14:31 79 90/52 L 97 01/21/20 14:30 79 97 01/21/20 14:16 79 93/52 L 97 01/21/20 14:15 80 97 01/21/20 14:01 80 100/52 L 97 01/21/20 14:00 79 97 01/21/20 13:46 80 102/54 L 97 01/21/20 13:45 79 98 01/21/20 13:31 80 94/54 L 97 01/21/20 13:30 79 97 01/21/20 13:16 80 91/56 L 98 01/21/20 13:15 80 98 01/21/20 13:01 82 77/42 L 97 01/21/20 13:00 83 97 01/21/20 12:50 83 80/46 L 97 01/21/20 12:45 82 97 01/21/20 12:40 82 97 01/21/20 12:39 37.2 C 82 72/48 L 97 01/21/20 12:30 80 97 01/21/20 12:09 84 98/50 L 97 01/21/20 12:00 83 96 01/21/20 11:39 85 92/50 L 97 01/21/20 11:30 88 95 01/21/20 11:09 87 86/50 L 96 01/21/20 11:00 88 96 01/21/20 10:39 85 20 102/45 L 95 01/21/20 10:30 88 22 91 01/21/20 10:09 87 22 101/55 L 90 01/21/20 10:00 87 25 H 90 01/21/20 09:39 89 23 104/67 91 01/21/20 09:30 95 H 24 91 01/21/20 09:10 86 26 H 94 01/21/20 09:09 83 21 101/48 L 93 01/21/20 09:00 85 24 88 L 01/21/20 08:39 86 25 H 109/64 88 L 01/21/20 08:30 84 24 92 01/21/20 08:08 82 24 98/63 L 93 01/21/20 08:00 89 23 88 L 01/21/20 07:39 91 H 108/65 88 L 01/21/20 07:30 38.2 C H 88 89 L 01/21/20 07:08 90 100/54 L 92 01/21/20 07:00 91 H 92
--- NOTE | 2020-01-21 18:08 | Critical Care Progress Note ---
Date of Service January 21, 2020 Assessment & Plan (1) Sepsis: Reason Critically Ill: 79-year-old female presents to the ICU postop following right ureteral stent placement for obstructive calculi, urosepsis now requiring vasopressors In past 24 hours vasopressors have been totally weaned, patient meeting goal MAPs. Patient with good urinary output. Neuro - [facility] ICU: Negative * History of [place] Mcconnell[place]ated with influenza vaccine, no current issue Cardiac - * Hypotension BP currently 103/55, MAP 71. pressors weaned. likely secondary to sepsis vs. anesthesia induced from stone removal. - continue quality assurance monitor * elevated troponin - at 0.906, trended down. Likely demand ischemia secondary to septic state Respiratory - * No history pulmonary disease. - currently satting 9 on 6L via [place] GI - * Nausea/vomiting IV zofran ordered prn RENAL/LYTES - - Creatinine normal at 1.07. - K low at 2.7, Mat low at 1.4. Calcium low at 8.2. IV replacement ordered. repeat levels. -Continue IV fluid resuscitation - * Ureteral calculipatient presented with right flank pain, CT revealed 7 mm right obstructing ureteral calculi with bilateral nephrolithiasis. status post cystoscopy and right ureteral stent placement - stone analysis showing calcium oxylate composition. - continue analgesia per urology team ENDO - * No history diabetes or thyroid disease - ICU protocol for hyperglycemia HEME - * Chronic anemia hgb at 10. continue home dose ferrous sulfate. ID - * Sepsislikely urinary source given UA positive bacteria +4. lactate elevated 3.2 on admission, has downtrended. Procal elevated to 24. WBC elevated to 20 on admission, down to 14. - 1/2 blood cultures growing gram negative bacilli from 01/20; surveillance culture drawn 01/21. continue to follow. - urine culture pending - Continue Zosyn. Vanc d/c - MRSA swab negative LINES/IV ACCESS * Peripheral IVs Code: Full DVT PROPHYLAXIS: Lovenox Admission and Anticipated Discharge Date Admission Date: January 20, 2020 Supervising Physician Co-Signing Physician Notes Dr. Laurent was resident physician during care of patient. I separately evaluated patient for edwards portions of the history and the exam. I was present during the critical portion of medical decision making, and I discussed the case with the resident. I generally agree with the findings and plan. Patient required intermittent vasoactive medication support, this is most likely secondary to gram-negative sepsis/bacteremia from infected renal calculi. Patient remains critically ill due to sepsis. Subjective Patient in ICU. Reports feeling nauseous. Has bilious vomitus in bedside tub. Review of Systems Gastrointestinal: + nausea and + vomiting Musculoskeletal: + back pain (right sided) Physical Exam Constitutional: WD/WN, vitals as above Eyes: + anicteric sclerae ENMT: external ear and nose normal, oropharynx normal Respiratory: normal respiratory effort, lungs clear to auscultation no cough Auscultation: no crackles, no rales, no rhonchi, no wheezes and no pleural rub Cardiovascular: RRR, no murmur, no edema Heart Sounds: normal S1 and normal S2 Gastrointestinal (Abdomen): normal bowel sounds, soft, nontender, no hepatosplenomegaly Right CVA tenderness Skin: no rashes, warm and dry Psychiatric: A+Ox3, euthymic affect Genitourinary: Santillan catheter in place draining yuniel colored urine Results & Data ([facility]) Vital Signs (Past 12 Hours) Vital Signs Temp Pulse Resp BP Pulse Ox 01/21/20 15:30 80 98 01/21/20 15:16 81 103/55 L 97 01/21/20 15:15 81 97 01/21/20 15:01 80 97/52 L 97 01/21/20 15:00 81 97 01/21/20 14:46 80 102/51 L 97 01/21/20 14:45 79 98 01/21/20 14:31 79 90/52 L 97 01/21/20 14:30 79 97 01/21/20 14:16 79 93/52 L 97 01/21/20 14:15 80 97 01/21/20 14:01 80 100/52 L 97 01/21/20 14:00 79 97 01/21/20 13:46 80 102/54 L 97 01/21/20 13:45 79 98 01/21/20 13:31 80 94/54 L 97 01/21/20 13:30 79 97 01/21/20 13:16 80 91/56 L 98 01/21/20 13:15 80 98 01/21/20 13:01 82 77/42 L 97 01/21/20 13:00 83 97 01/21/20 12:50 83 80/46 L 97 01/21/20 12:45 82 97 01/21/20 12:40 82 97 01/21/20 12:39 37.2 C 82 72/48 L 97 01/21/20 12:30 80 97 01/21/20 12:09 84 98/50 L 97 01/21/20 12:00 83 96 01/21/20 11:39 85 92/50 L 97 01/21/20 11:30 88 95 01/21/20 11:09 87 86/50 L 96 01/21/20 11:00 88 96 01/21/20 10:39 85 20 102/45 L 95 01/21/20 10:30 88 22 91 01/21/20 10:09 87 22 101/55 L 90 01/21/20 10:00 87 25 H 90 01/21/20 09:39 89 23 104/67 91 01/21/20 09:30 95 H 24 91 01/21/20 09:10 86 26 H 94 01/21/20 09:09 83 21 101/48 L 93 01/21/20 09:00 85 24 88 L 01/21/20 08:39 86 25 H 109/64 88 L 01/21/20 08:30 84 24 92 01/21/20 08:08 82 24 98/63 L 93 01/21/20 08:00 89 23 88 L 01/21/20 07:39 91 H 108/65 88 L 01/21/20 07:30 38.2 C H 88 89 L 01/21/20 07:08 90 100/54 L 92 01/21/20 07:00 91 H 92 Critical Care Time Critical Care Time: Yes Total Critical Care Time: 50 I have personally spent 50 minutes of critical care time in the direct management of this patient. This is a life/limb threatening event. This includes time spent evaluating patient, direct bedside care, chart review, placing orders, interpretation of diagnostic studies, discussion with consultants, patient, and/or family members regarding treatment decisions, as well as other required patient management activities. This time is exclusive of all separately billable procedures, and teaching time and separate from and in addition to any other critical care service time. Resident Activity Tracking Resident Involvement: Resident Care Provided Care Provided: [facility]
--- NOTE | 2020-01-21 18:29 | Electrocardiogram Report ---
Test Reason : Blood Pressure : / mmHG Vent. Rate : 087 BPM Atrial Rate : 087 BPM P-R Int : 208 ms QRS Dur : 078 ms QT Int : 396 ms P-R-T Axes : 065 013 060 degrees QTc Int : 476 ms Normal sinus rhythm Low voltage QRS Borderline ECG When compared with ECG of 20-JAN-2020 11:09, No significant change was found Confirmed by Markie Fernandez ([id number]) on 01/21/2020 6:29:00 PM Referred By: REFERRED SELF Confirmed By:Dm Fernandez
[2020-01-21] MEDS: CHOLECALCIFEROL 1,000 UNITS 25 MCG TAB PO SCH (18:49)
[2020-01-21] MEDS: CYANOCOBALAMIN 500 MCG TABLET (VITAMIN B-12) PO SCH (18:49)
[2020-01-21] MEDS: FERROUS SULFATE 325 MG TAB PO SCH (18:49)
[2020-01-21] MEDS ORDERED: TRAZODONE HCL 50 MG TAB PO ONE (22:46)
[2020-01-21] MEDS ORDERED: ONDANSETRON INJ 2 MG/ML 2 ML VIAL IV STA (22:48)
[2020-01-22] MEDS: PIPERACILLIN/TAZOBACTAM 3.375 GM in DEXTROSE 5% 100 ML IV SCH ×2 (02:08→07:33)
[2020-01-22 04:45] LABS: Basophils # (auto) 0.01 K/uL (0-0.2); Basophils % (auto) 0.1 %; Hematocrit (blood only) 30.4 % (37-47); Immature Granulocytes # (auto) 0.02 K/uL (0.00-0.02); Immature Granulocytes % (auto) 0.2 %; Lymphocytes % (auto) 3.6 %; Mean Corpuscular Hemoglobin 30.9 pg (25-34); Mean Corpuscular Hgb Conc 32.9 g/dL (32-36); Mean Corpuscular Volume 93.8 fL (80-100); Mean Platelet Volume 9.5 fL (7.4-10.4); Monocytes # (auto) 0.66 K/uL (0.11-0.59); Neutrophils # (auto) 9.96 K/uL (1.4-6.5); Neutrophils % (auto) 90.1 %; Platelet Count 159 K/uL (130-400); RDW Coefficient of Variation 13.9 % (11.5-14.5); Red Blood Count 3.24 M/uL (4.2-5.4); White Blood Count 11.05 K/uL (4.8-10.8)
[2020-01-22 05:10] LABS: BUN Creatinine Ratio 12.9 (10-20); Calcium 7.1 mg/dl (8.5-10.1); Creatinine Clr Calc Pharmacy 57.4 ml/min; Est GFR (African American) 80.6; Est GFR (Non-African American) 69.6; Magnesium 2.5 mg/dl (1.8-2.4)
[2020-01-22 05:19] LABS: Phosphorus 2.9 mg/dl (2.5-4.9); Troponin I 0.672 ng/ml (0-0.045)
[2020-01-22] MEDS ORDERED: POTASSIUM CHLORIDE 20 MEQ TABCR PO STA (05:50)
[2020-01-22] MEDS: ONDANSETRON INJ 2 MG/ML 2 ML VIAL IV PRN ×2 (07:33→19:25)
[2020-01-22] MEDS: FERROUS SULFATE 325 MG TAB PO SCH (07:34)
[2020-01-22] MEDS: CHOLECALCIFEROL 1,000 UNITS 25 MCG TAB PO SCH (07:34)
[2020-01-22] MEDS: RALOXIFENE HCL 60 MG TAB PO SCH (07:34)
[2020-01-22] MEDS: CYANOCOBALAMIN 500 MCG TABLET (VITAMIN B-12) PO SCH (07:34)
[2020-01-22] MEDS: POTASSIUM CHLORIDE 10 MEQ TABCR PO SCH (07:39)
--- NOTE | 2020-01-22 08:40 | Critical Care Progress Note ---
Date of Service January 22, 2020 Assessment & Plan (1) Sepsis: Reason Critically Ill: 79-year-old female presents to the ICU postop following right ureteral stent placement for obstructive calculi, urosepsis now requiring vasopressors Neuro - [facility]: Negative History of [place] Mcconnellociated with influenza vaccine, no current issue Cardiac - Hypotensionresolved -E. coli bacteremia secondary to infected right ureteral calculi source control now obtained. Respiratory - No history pulmonary disease, currently maintaining sats on room air GI - Nausea/vomiting-improving -Tolerating diet today History of diarrheanot a current issue, will monitor RENAL/LYTES - Creatinine within normal limits, will check routine with BMP Hypokalemia -Oral potassium chloride - Ureteral calculipatient presented with right flank pain, CT revealed 7 mm right obstructing ureteral calculi with bilateral nephrolithiasis -Per urology: Able to discontinue Santillan when strict I's and O's no longer needed -Discontinued Flomax secondary to hypotension -Creatinine stable will discontinue Santillan encourage ambulation today ENDO - No history diabetes thyroid disease HEME - Chronic anemiaH&H stable, continue home dose ferrous sulfate ID - SepsisE. coli bacteremia reviewed sensitivities -De-escalating to ceftriaxone from Zosyn, -Day 2 of 14 IV antibiotics: E. coli bacteremia LINES/IV ACCESS - Peripheral IVs DVT PROPHYLAXIS - SCDs, holding anticoagulation for tonight following procedure Patient is stable for downgrade out of ICU Results & Data ([facility]) Vital Signs (Past 12 Hours) Vital Signs Temp Pulse BP Pulse Ox 01/22/20 04:09 37.1 C 77 110/52 L 93 01/22/20 04:00 77 90 01/22/20 03:30 87 01/22/20 03:02 94 H 125/64 90 01/22/20 03:00 93 H 90 01/22/20 02:47 85 123/64 93 01/22/20 02:32 78 118/86 90 01/22/20 02:30 76 93 01/22/20 02:17 75 115/54 L 94 01/22/20 02:02 82 117/57 L 94 01/22/20 02:00 70 93 01/22/20 01:46 81 128/78 86 L 01/22/20 01:32 80 113/69 87 L 01/22/20 01:30 82 88 L 01/22/20 01:16 81 120/57 L 93 01/22/20 01:01 74 109/59 L 94 01/22/20 01:00 82 94 01/22/20 00:47 78 109/58 L 93 01/22/20 00:31 81 114/57 L 93 01/22/20 00:30 78 93 01/22/20 00:18 84 90 01/22/20 00:17 81 121/51 L 91 01/22/20 00:15 84 95 01/22/20 00:00 79 92 01/21/20 23:46 37.5 C 83 124/70 94 01/21/20 23:45 82 96 01/21/20 23:31 76 112/57 L 95 01/21/20 23:30 75 95 01/21/20 23:16 72 110/57 L 94 01/21/20 23:15 80 93 01/21/20 23:01 77 103/55 L 93 01/21/20 23:00 76 92 01/21/20 22:47 77 120/63 92 01/21/20 22:45 77 90 01/21/20 22:31 76 113/60 89 L 01/21/20 22:30 76 90 01/21/20 22:16 78 103/66 95 01/21/20 22:15 72 95 01/21/20 22:01 79 111/59 L 92 01/21/20 22:00 80 92 01/21/20 21:55 80 107/70 92 01/21/20 21:45 78 93 01/21/20 21:31 80 96/45 L 95 01/21/20 21:30 87 95 01/21/20 21:16 73 86/42 L 95 01/21/20 21:15 73 94 01/21/20 21:01 74 89/43 L 94 01/21/20 21:00 74 94 01/21/20 20:46 73 88/49 L 95 01/21/20 20:45 74 94 Coding Level of Care Code 63001 Subseq Hosp Care Lvl 3 Diagnoses Sepsis A41.9
[2020-01-22] MEDS ORDERED: POTASSIUM CHLORIDE 20 MEQ TABCR PO SCH (09:00)
[2020-01-22] MEDS: cefTRIAXone SODIUM 1,000 MG in DEXTROSE 5% 50 ML IV SCH (09:41)
--- NOTE | 2020-01-22 13:33 | Hospitalist Progress Note ---
Date of Service January 22, 2020 Assessment & Plan (1) Severe sepsis: Meet sepsis criteria on admission with tachycardia, febrile with Temp 40.C, Leukocytosis and required pressor CT abd/pelvis showed obstructing 7 mm proximal right ureteral calculus Elevated procalcitonin Urine cx positive for ECOLI Blood cx grew gram negative bacilli Received IV Vanco and Rocephin on admission IV Zosyn was de-escalated to Rocephin Repeat Blood cx no growth Will need a total of 14 days course of abx Procalcitonin trending down Received IVF and Off pressor since yesterday BP stable Clinically stable Calculus of proximal right ureter: S/P day#2 emergent stent placement secondary to sepsis Urology on board Continue IV abx for now Follow up with urology on discharge for stent removal outpatient Elevated Troponin Due to demand ischemia from sepsis Troponin 0.9 on admission, then dropped to 0.6 - >0.7 EKG showed no ischemic changes Will consider to get an ECHO denies any chest pain Hypokalemia K 3 today K replaced Monitor BMP Hx seizure. Currently not on anti-seizure medications. Stable History of breast cancer status post lumpectomy Continue raloxifene. Deep venous thrombosis prophylaxis On Lovenox Code Status Full code Admission and Anticipated Discharge Date Admission Date: January 20, 2020 Subjective Pt was seen and examined Lying in bed with no distress Pt said that she feels a little better She said that she was feeling nauseated early Denies any chest chest pain, palpitation, dizziness and SOB Physical Exam Physical Exam: General- No acute distress Head- atraumatic Eyes- PERRL, EOMI, ENT- oropharynx clear Neck- supple, no JVD Lungs- clear to auscultation Heart- regular rhythm; no murmur Abdomen- normal bowel sounds, soft, nontender Extremities- no calf tenderness Neuro- alert, oriented x 3; PERRL, EOMI; no facial palsy; no dysarthria Skin- warm & dry Results & Data ([facility]) Vital Signs (Past 12 Hours) Vital Signs Temp Pulse Resp BP Pulse Ox 01/22/20 08:30 90 93 01/22/20 08:09 80 136/78 95 01/22/20 08:00 81 94 01/22/20 07:30 37.2 C 79 18 90 01/22/20 07:09 80 119/70 93 01/22/20 07:00 74 93 01/22/20 04:09 37.1 C 77 110/52 L 93 01/22/20 04:00 77 90 01/22/20 03:30 87 01/22/20 03:02 94 H 125/64 90 01/22/20 03:00 93 H 90 01/22/20 02:47 85 123/64 93 01/22/20 02:32 78 118/86 90 01/22/20 02:30 76 93 01/22/20 02:17 75 115/54 L 94 01/22/20 02:02 82 117/57 L 94 01/22/20 02:00 70 93 01/22/20 01:46 81 128/78 86 L 01/22/20 01:32 80 113/69 87 L
[2020-01-22] MEDS: ENOXAPARIN INJ 40 MG/0.4 ML SYR SQ SCH (18:22)
[2020-01-22] MEDS ORDERED: POTASSIUM CHLORIDE PWD 20 MEQ PACK PO SCH (21:00)
[2020-01-23] MEDS: ONDANSETRON INJ 2 MG/ML 2 ML VIAL IV PRN ×3 (03:48→21:07)
[2020-01-23] MEDS: CYANOCOBALAMIN 500 MCG TABLET (VITAMIN B-12) PO SCH (07:35)
[2020-01-23] MEDS: RALOXIFENE HCL 60 MG TAB PO SCH (07:35)
[2020-01-23] MEDS: CHOLECALCIFEROL 1,000 UNITS 25 MCG TAB PO SCH (07:35)
[2020-01-23] MEDS: FERROUS SULFATE 325 MG TAB PO SCH (07:35)
[2020-01-23] MEDS: TAMSULOSIN HCL 0.4 MG CAP PO SCH (08:41)
[2020-01-23 08:45] LABS: BUN Creatinine Ratio 13.3 (10-20); Calcium 8.1 mg/dl (8.5-10.1); Creatinine Clr Calc Pharmacy 71.7 ml/min; Est GFR (African American) 99.1; Est GFR (Non-African American) 85.5; Potassium 3.8 mmol/L (3.5-5.1)
[2020-01-23] MEDS: cefTRIAXone SODIUM 1,000 MG in DEXTROSE 5% 50 ML IV SCH (09:29)
--- NOTE | 2020-01-23 15:28 | Hospitalist Progress Note ---
Date of Service January 23, 2020 Assessment & Plan (1) Severe sepsis: Meet sepsis criteria on admission with tachycardia, febrile with Temp 40.C, Leukocytosis and required pressor CT abd/pelvis showed obstructing 7 mm proximal right ureteral calculus Elevated procalcitonin Urine cx positive for ECOLI Blood cx grew gram negative bacilli Received IV Vanco and Rocephin on admission IV Zosyn was de-escalated to Rocephin Repeat Blood cx no growth Will need a total of 14 days course of abx Procalcitonin trending down Has been off pressor and BP stable Will transition from Rocephin to Cefdinir PO Clinically stable Calculus of proximal right ureter: S/P day#3 emergent stent placement secondary to sepsis Urology on board Will transition to oral abx Santillan D/C today Follow up with urology on discharge for stent removal outpatient Elevated Troponin Due to demand ischemia from sepsis Troponin 0.9 on admission, then dropped to 0.6 - >0.7 EKG showed no ischemic changes Will consider to get an ECHO denies any chest pain Hypokalemia K 3.8 today Monitor BMP Stable Hx seizure. Currently not on anti-seizure medications. Stable Hypoxia Continue to require oxygen supplement Will get a CXR Consider 2 step exercise on discharge if unable to wean off the oxygen History of breast cancer status post lumpectomy Continue raloxifene. Deep venous thrombosis prophylaxis On Lovenox Code Status Full code Disposition Will discharge home tomorrow Admission and Anticipated Discharge Date Admission Date: January 20, 2020 Subjective Pt was seen and examined Lying in bed with no distress Pt said that she feels much better She said that she felt nauseated early She would like to go home today She continues requiring oxygen Denies any chest pain, palpitation, dizziness and fever Physical Exam Physical Exam: General- No acute distress Head- atraumatic Eyes- PERRL, EOMI, ENT- oropharynx clear Neck- supple, no JVD Lungs- clear to auscultation Heart- regular rhythm; no murmur Abdomen- normal bowel sounds, soft, nontender Extremities- no calf tenderness Neuro- alert, oriented x 3; PERRL, EOMI; no facial palsy; no dysarthria Skin- warm & dry Results & Data ([facility]) Vital Signs (Past 12 Hours) Vital Signs Temp Pulse Resp BP BP Pulse Ox 01/23/20 14:56 37.2 C 87 18 132/76 91 01/23/20 11:38 93 01/23/20 11:02 37.0 C 78 18 147/79 H 93 01/23/20 07:09 37.2 C 81 20 146/81 H 90
--- NOTE | 2020-01-23 16:15 | XRay Report ---
XR chest 1V portable HISTORY: Hypoxia COMPARISON: Chest 01/13/2019. FINDINGS: Moderate right pleural effusion which is increased in size. Perihilar interstitial and vasc ular thickening has progressed. Hazy appearance to lung bases is noted. No pneumothorax. There is als o a small left pleural effusion. The heart remains enlarged. IMPRESSION: Interval progression of the pulmonary edema and bilateral pleural effusions. ACT 112: Negative or not required by law. Electronically signed by: Allen Renner M.D. 01/23/2020 4:13 PM
[2020-01-23] MEDS: ENOXAPARIN INJ 40 MG/0.4 ML SYR SQ SCH (16:29)
[2020-01-23] MEDS ORDERED: FUROSEMIDE 20 MG in SYRINGE 0 ML IV ONE (18:30)
[2020-01-24] MEDS: ONDANSETRON INJ 2 MG/ML 2 ML VIAL IV PRN ×2 (07:26→21:09)
[2020-01-24 07:27] LABS: BUN Creatinine Ratio 11.5 (10-20); Calcium 7.9 mg/dl (8.5-10.1); Creatinine Clr Calc Pharmacy 63.8 ml/min; Est GFR (African American) 94.6; Est GFR (Non-African American) 81.6; Potassium 2.9 mmol/L (3.5-5.1)
[2020-01-24] MEDS ORDERED: POTASSIUM CHLORIDE 20 MEQ TABCR PO ONE (07:45)
[2020-01-24] MEDS: CYANOCOBALAMIN 500 MCG TABLET (VITAMIN B-12) PO SCH (08:26)
[2020-01-24] MEDS: cefTRIAXone SODIUM 1,000 MG in DEXTROSE 5% 50 ML IV SCH (08:26)
[2020-01-24] MEDS: POTASSIUM CHLORIDE / WTR 10 MEQ/100 ML PLCT IV SCH (08:26)
[2020-01-24] MEDS: CHOLECALCIFEROL 1,000 UNITS 25 MCG TAB PO SCH (08:27)
[2020-01-24] MEDS: RALOXIFENE HCL 60 MG TAB PO SCH (08:27)
[2020-01-24] MEDS: FERROUS SULFATE 325 MG TAB PO SCH (08:27)
[2020-01-24] MEDS: TAMSULOSIN HCL 0.4 MG CAP PO SCH (08:27)
[2020-01-24] MEDS ORDERED: FUROSEMIDE 20 MG in SYRINGE 0 ML IV ONE ×2 (09:00→16:00)
--- NOTE | 2020-01-24 15:23 | XRay Report ---
XR chest 1V portable HISTORY: Hypoxia. COMPARISON: Chest 01/23/2020. FINDINGS: No pneumothorax. Pulmonary edema has significantly improved. Moderate right and small left pleural effusions and the bibasilar densities have also improved. The heart remains mildly enlarged. IMPRESSION: Interval improvement in the pulmonary edema and bilateral pleural effusion/densities. ACT 112: Negative or not required by law. Electronically signed by: Allen Renner M.D. 01/24/2020 3:22 PM
[2020-01-24] MEDS ORDERED: POTASSIUM CHLORIDE 20 MEQ TABCR PO STA ×2 (15:51→19:14)
[2020-01-24] MEDS: ENOXAPARIN INJ 40 MG/0.4 ML SYR SQ SCH (16:51)
[2020-01-24] MEDS: SODIUM CHLORIDE 0.9% 1000ML 1,000 ML IV SCH (17:55)
--- NOTE | 2020-01-24 18:05 | Hospitalist Progress Note ---
Date of Service January 24, 2020 Assessment & Plan (1) Severe sepsis: Meet sepsis criteria on admission with tachycardia, febrile with Temp 40.C, Leukocytosis and required pressor CT abd/pelvis showed obstructing 7 mm proximal right ureteral calculus Elevated procalcitonin Urine cx positive for ECOLI Blood cx grew gram negative bacilli Received IV Vanco and Rocephin on admission IV Zosyn was de-escalated to Rocephin Repeat Blood cx no growth Will need a total of 14 days course of abx Procalcitonin trending down Has been off pressor and BP stable Will transition from Rocephin to Cipro 500mg BID Clinically stable Calculus of proximal right ureter: S/P day#4 emergent stent placement secondary to sepsis Urology on board Will transition to oral abx Santillan D/C today Follow up with urology on discharge for stent removal outpatient Elevated Troponin Due to demand ischemia from sepsis Troponin 0.9 on admission, then dropped to 0.6 - >0.7 EKG showed no ischemic changes Will consider to get an ECHO denies any chest pain Hypokalemia K 2.9 today K replaced Monitor BMP Stable Hx seizure. Currently not on anti-seizure medications. Stable Hypoxia Continue to require oxygen supplement Repeat CXR showed interval improvement in the pulmonary edema and bilateral pleural effusion/densities. Consider 2 step exercise on discharge if unable to wean off the oxygen Additional Lasix 20mg IV given and pt diuresis well History of breast cancer status post lumpectomy Continue raloxifene. Deep venous thrombosis prophylaxis On Lovenox Code Status Full code Disposition Will discharge home tomorrow Admission and Anticipated Discharge Date Admission Date: January 20, 2020 Subjective Pt was seen and examined Lying in bed with no distress Pt said that she feels fine She is very anxious to go home today Denies any chest pain, palpitation and SOB Physical Exam Physical Exam: General- No acute distress Head- atraumatic Eyes- PERRL, EOMI, ENT- oropharynx clear Neck- supple, no JVD Lungs- clear to auscultation Heart- regular rhythm; no murmur Abdomen- normal bowel sounds, soft, nontender Extremities- no calf tenderness Neuro- alert, oriented x 3; PERRL, EOMI; no facial palsy; no dysarthria Skin- warm & dry Results & Data ([facility]) Vital Signs (Past 12 Hours) Vital Signs Temp Pulse Pulse Resp BP Pulse Ox 01/24/20 14:52 37.2 C 95 H 20 112/75 90 01/24/20 11:10 36.8 C 92 H 18 134/60 92 01/24/20 07:42 37.0 C 85 18 144/78 H 92
[2020-01-25 09:28] LABS: BUN Creatinine Ratio 15.8 (10-20); Calcium 8.6 mg/dl (8.5-10.1); Creatinine Clr Calc Pharmacy 56.8 ml/min; Est GFR (African American) 84.4; Est GFR (Non-African American) 72.8; Potassium 3.1 mmol/L (3.5-5.1)
[2020-01-25] MEDS ORDERED: POTASSIUM CHLORIDE 20 MEQ TABCR PO STA (09:44)
[2020-01-25] MEDS: RALOXIFENE HCL 60 MG TAB PO SCH (09:53)
[2020-01-25] MEDS: CYANOCOBALAMIN 500 MCG TABLET (VITAMIN B-12) PO SCH (09:54)
[2020-01-25] MEDS: FERROUS SULFATE 325 MG TAB PO SCH (09:54)
[2020-01-25] MEDS: CHOLECALCIFEROL 1,000 UNITS 25 MCG TAB PO SCH (09:54)
[2020-01-25] MEDS: TAMSULOSIN HCL 0.4 MG CAP PO SCH (09:54)
[2020-01-25] MEDS: cefTRIAXone SODIUM 1,000 MG in DEXTROSE 5% 50 ML IV SCH (09:59)
--- NOTE | 2020-01-25 12:50 | Hospitalist Progress Note ---
Date of Service January 25, 2020 Assessment & Plan (1) Severe sepsis: Meet sepsis criteria on admission with tachycardia, febrile with Temp 40.C, Leukocytosis and required pressor CT abd/pelvis showed obstructing 7 mm proximal right ureteral calculus Elevated procalcitonin Urine cx positive for ECOLI Blood cx grew gram negative bacilli Received IV Vanco and Rocephin on admission IV Zosyn was de-escalated to Rocephin Repeat Blood cx no growth Procalcitonin trending down Has been off pressor and BP stable Will transition from Rocephin to Cipro 500mg BID to complete a 14 days course of abx Clinically stable Calculus of proximal right ureter: S/P day#5 emergent stent placement secondary to sepsis Urology on board Will transition to oral abx Santillan D/C today Follow up with urology on discharge for stent removal outpatient in 1 to 2 weeks Elevated Troponin Due to demand ischemia from sepsis Troponin 0.9 on admission, then dropped to 0.6 - >0.7 EKG showed no ischemic changes Will consider to get an ECHO denies any chest pain Hypokalemia K 3.1 today K replaced Continue K supplement Check BMP in 1 week Hx seizure. Currently not on anti-seizure medications. Stable Hypoxia Repeat CXR showed interval improvement in the pulmonary edema and bilateral ple ural effusion/densities. Received a lot of fluid during the hospital course Received IV lasix and diuresis well She was able to wean of oxygen Yesterday We made her walk around the hallway on room air, the lowest drop of oxygen saturation 89 % Lasix additional 20mg PO given today Will need a repeat CXR in 1 week History of breast cancer status post lumpectomy Continue raloxifene. Deep venous thrombosis prophylaxis On Lovenox Code Status Full code Disposition Will discharge home today Admission and Anticipated Discharge Date Admission Date: January 20, 2020 Subjective Pt was seen and examined Lying in bed with no distress Pt said that she feels much better today She said that she does not have any pain She said that her breathing is much better She is very anxious to go home today She denies any chest pain, palpitation, dizziness and SOB Physical Exam Physical Exam: General- No acute distress Head- atraumatic Eyes- PERRL, EOMI, ENT- oropharynx clear Neck- supple, no JVD Lungs- clear to auscultation Heart- regular rhythm; no murmur Abdomen- normal bowel sounds, soft, nontender Extremities- no calf tenderness Neuro- alert, oriented x 3; PERRL, EOMI; no facial palsy; no dysarthria Skin- warm & dry Results & Data ([facility]) Vital Signs (Past 12 Hours) Vital Signs Temp Pulse Resp BP Pulse Ox 01/25/20 10:59 37.2 C 87 16 117/71 92 01/25/20 08:16 92 01/25/20 07:19 37.2 C 88 16 125/65 89 L
[2020-01-25] MEDS ORDERED: FUROSEMIDE 20 MG TAB PO ONE (13:00)
[2020-01-25] MEDS ORDERED: POTASSIUM CHLORIDE 10 MEQ TABCR PO ONE (13:00)
[2020-01-25] MEDS ORDERED: CIPROFLOXACIN 500 MG TAB PO SCH (21:00)
[2020-01-26] MEDS ORDERED: FUROSEMIDE 20 MG TAB PO SCH ×2 (09:00)
--- NOTE | 2020-01-26 12:14 | Discharge Summary ---
Date of Service January 26, 2020 Admission HPI Per Admitting Provider CHIEF COMPLAINT: Right flank pain. HISTORY OF PRESENT ILLNESS: A 79-year-old female with past medical history significant for history of chronic anemia, history of seizure disorder - off anti-seizure medication, history of Guillain-[place] syndrome, history of chronic diarrhea, history of right breast cancer, status post surgery and radiation, history of kidney stones in the past and sepsis in the past, presents with right flank pain. The patient says last week she had some nausea that improved, but since last night, she had right flank pain, moderate in severity, no radiation, associated with some dry heaving and feeling chills, frequent urination, but denies any burning micturition, no hematuria,no abdominal pain, . because of above symptoms came ER and found to have again a 7 mm obstructing right ureteral calculus. The patient had mild temperature and feeling chills and has leukocytosis in the ER. Denies any chest pain, no shortness of breath. Denies any cough, no headaches, no blurred vision, no double vision, no earache, no runny nose, no sore throat. Otherwise, appetite is okay. Sleeps okay. Normal bowel movements. No swelling in the legs. The patient says she also has some chronic rectal abscess and she has a right-sided perianal drain, which is seen on the CAT scan. Admission Exam Per Admitting Provider GENERAL: The patient is of moderate build, not in acute distress. VITAL SIGNS: Temperature 37.6, pulse 90, respiratory rate 16, blood pressure 122/64, oxygen 96% on room air. HEENT: No pallor, no icterus. Pupils equal, round, reactive to light. NECK: No JVD, no neck masses, no carotid bruits. CARDIOVASCULAR: S1, S2, regular rate and rhythm, no murmur, no gallop. RESPIRATORY SYSTEM: Normal AP diameter. No accessory muscle use. No wheezing, no crackles. ABDOMEN: Soft, bowel sounds present. Nontender. No CVA tenderness. No distention. CENTRAL NERVOUS SYSTEM: Cranial nerves II-XII grossly intact. Nonfocal. EXTREMITIES: No edema, no erythema. Principal Diagnosis Severe sepsis: Calculus of proximal right ureter: Elevated Troponin Hypokalemia Hx seizure. Hypoxia History of breast cancer Discharge Exam General- No acute distress Head- atraumatic Eyes- PERRL, EOMI, ENT- oropharynx clear Neck- supple, no JVD Lungs- clear to auscultation Heart- regular rhythm; no murmur Abdomen- normal bowel sounds, soft, nontender Extremities- no calf tenderness Neuro- alert, oriented x 3; PERRL, EOMI; no facial palsy; no dysarthria Skin- warm & dry Discharge Data Allergies Allergy/AdvReac Type Severity Reaction Status Date / Time influenza virus vaccine, Allergy Severe GILLEAN Verified 01/20/20 11:45 specific BARRE SYNDROME Sulfa (Sulfonamide Allergy Unknown Unknown Verified 01/20/20 11:45 Antibiotics) Consultations 01/20/20 14:30 Consult Urology Stat 01/20/20 15:03 ED Decision to Admit Stat 01/20/20 17:58 Consult Case Management - Discharge Planning Routine 01/20/20 20:59 Consult Case Management - Discharge Planning Routine 01/20/20 22:43 Consult Java Developer Consultant Routine Procedures Performed Operation Date: 01/20/20 07:15 Actual Procedures p Ureteral Stent Insertion/Removal(Right) - Guillermo Joshua DO s Cystoscopy(Right) - Guillermo Joshua DO Ordered Studies 01/20/20 FL KUB Routine 01/20/20 10:58 CT abd pelvis wo con Stat FL KUB HISTORY: 79 years-old Female RT CYSTO STENT right ureteral calculus COMPARISON: CT abdomen pelvis 01/20/2020 TECHNIQUE: 2 spot fluoroscopic images of the right abdomen and pelvis were obtained utilizing 15.0 seconds fluoroscopy time FINDINGS: Status post placement of a right ureteral stent which appears to be in satisfactory positioning. Persistent dilation of the right renal pelvis. The previously noted right ureteral calculus is not identified. IMPRESSION: Fluoroscopic assistance as above. Please see procedural report for further details. ACT 112: Negative or not required by law. The above report was generated using voice recognition software. It may contain grammatical, syntax or spelling errors. Electronically signed by: Bright Hunter M.D. 01/20/2020 8:14 PM Dictated: 01/20/202012 Transcribed: 01/20/202012 CT SCAN OF THE ABDOMEN AND PELVIS WITHOUT CONTRAST CLINICAL HISTORY: right flank pain, hx stones, hx rectal abscess COMPARISON STUDY: 01/21/2019 TECHNIQUE: CT scan of the abdomen and pelvis was performed from the lung bases to the proximal femurs. Images are reviewed in the axial, sagittal, and coronal planes. IV contrast was not administered for this examination. A dose lowering technique was utilized adhering to the principles of ALARA. CT DOSE: 673.30 mGycm FINDINGS: Lower chest: There is subtle dependent airspace opacities, atelectatic versus i nfectious/inflammatory. Liver: The unenhanced liver is normal in size, contour, and attenuation. There is no intrahepatic biliary ductal dilatation. Gallbladder: Unremarkable. Spleen: Normal in size and attenuation. Pancreas: Unremarkable. Adrenal glands: Unremarkable. Kidneys: There are multiple bilateral renal calculi. The largest on the left measures 9 mm. The largest on the right measures 2.5 mm. There is right-sided perinephric stranding. There is mild right-sided hydronephrosis and hydroureter. There is an extrarenal pelvis on the left. There is an obstructing proximal right ureteral calculus measuring 7 mm. This is at the inferior L4 level. No bladder calculi are visualized. Bowel: There are no transition zones indicate bowel obstruction. There is evidence for lower perirectal/anal wall thickening and there is a right-sided perianal drain. Evaluation for inflammatory changes is limited given the lack of intravenous contrast there is mild submucosal fat hypertrophy within the right colon. Peritoneum: There is no intraperitoneal free air or abdominal ascites. There is a fat-containing lower abdominal anterior ventral hernia Vasculature: The abdominal aorta is normal in course and caliber. Adenopathy: None. Pelvic viscera: The uterus is surgically absent Skeletal structures: Postsurgical changes involve the right hip. There is a lipoma within the left proximal thigh anterior musculature. IMPRESSION: 1. No evidence of bowel obstruction. No evidence of free air 2. Bilateral nephrolithiasis 3. Obstructing 7 mm proximal right ureteral calculus 4. Lower perirectal/perianal soft tissue thickening. Right-sided perianal drain ACT 112: Negative or not required by law. Electronically signed by: Bimal Taylor M.D. 01/20/2020 11:45 AM Dictated: 01/20/20 1136 Transcribed: 01/20/20 1136 XR chest 1V portable HISTORY: Hypoxia COMPARISON: Chest 01/13/2019. FINDINGS: Moderate right pleural effusion which is increased in size. Perihilar interstitial and vascular thickening has progressed. Hazy appearance to lung bases is noted. No pneumothorax. There is also a small left pleural effusion. The heart remains enlarged. IMPRESSION: Interval progression of the pulmonary edema and bilateral pleural effusions. ACT 112: Negative or not required by law. Electronically signed by: Allen Renner M.D. 01/23/2020 4:13 PM Dictated: 01/23/20 1613 Transcribed: 01/23/20 1613 XR chest 1V portable HISTORY: Hypoxia. COMPARISON: Chest 01/23/2020. FINDINGS: No pneumothorax. Pulmonary edema has significantly improved. Moderate right and small left pleural effusions and the bibasilar densities have also improved. The heart remains mildly enlarged. IMPRESSION: Interval improvement in the pulmonary edema and bilateral pleural effusion/densities. ACT 112: Negative or not required by law. Electronically signed by: Allen Renner M.D. 01/24/2020 3:22 PM Dictated: 01/24/20 1521 Transcribed: 01/24/20 1521 Hospital Course (1) Severe sepsis: Meet sepsis criteria on admission with tachycardia, febrile with Temp 40.C, Leukocytosis and required pressor CT abd/pelvis showed obstructing 7 mm proximal right ureteral calculus Elevated procalcitonin Urine cx positive for ECOLI Blood cx grew gram negative bacilli Received IV Vanco and Rocephin on admission IV Zosyn was de-escalated to Rocephin Repeat Blood cx no growth Procalcitonin trending down Has been off pressor and BP stable Will transition from Rocephin to Cipro 500mg BID to complete a 14 days course of abx Clinically stable Calculus of proximal right ureter: S/P day#5 emergent stent placement secondary to sepsis Urology on board Will transition to oral abx Santillan D/C today Follow up with urology on discharge for stent removal outpatient in 1 to 2 weeks Elevated Troponin Due to demand ischemia from sepsis Troponin 0.9 on admission, then dropped to 0.6 - >0.7 EKG showed no ischemic changes Will consider to get an ECHO denies any chest pain Hypokalemia K 3.1 today K replaced Continue K supplement Check BMP in 1 week Hx seizure. Currently not on anti-seizure medications. Stable Hypoxia Repeat CXR showed interval improvement in the pulmonary edema and bilateral pleural effusion/densities. Received a lot of fluid during the hospital course Received IV lasix and diuresis well She was able to wean of oxygen Yesterday We made her walk around the hallway on room air, the lowest drop of oxygen saturation 89 % Lasix additional 20mg PO given today Will need a repeat CXR in 1 week History of breast cancer status post lumpectomy Continue raloxifene. Deep venous thrombosis prophylaxis On Lovenox Code Status Full code Disposition Will discharge home today Total Time Total Time Spent Total Time Spent (In Minutes): 35 minutes Total Time Includes: Examination of the Patient, Discharge Planning, Medication Reconciliation, Communication With Other Providers and Other Discharge Plan Discharge Items Patient Disposition: Home - Self-Care Reason For Visit: RIGHT FLANK PAIN Discharge Diagnosis: Severe sepsis: Calculus of proximal right ureter: Elevated Troponin Hypokalemia Hx seizure. Hypoxia History of breast cancer Condition on Discharge: Good Activity: Resume your previous activity Non-emergency contact: Primary Care Provider and Urologist Call non-emergency contact if: you have any medication questions and your temperature is above 101 Follow-up/Referrals: Guillermo Joshua DO [Physician] - 02/09/20 1:20 pm (WITH DR COBOS. NEED XRAY (KUB) AT [facility] PRIOR TO APPT TIME. ORDER IS IN THE SYSTEM. ANY QUESTIONS CALL [phone].) Indu Ambrocio [Primary Care Provider] - 02/07/20 10:45 am (You have an appt scheduled with your PCP FridayFebruary 06 @ 1045. ) Diet: Heart Healthy Addtl Attending Provider Instructions: Follow up with your primary care provider within 1 week Follow up with [facility] urology in 1 -2 weeks Check BMP in 1 week to monitor your Potassium You will need a repeat Chest XR in 1 week for follow up on the pleural effusion in your lung Complete the course of the antibiotic Seek medical attention if you develop any shortness of breath We will give you a home dose pack lasix to take for additional 2 days (Tomorrow and Friday ) Increase Potassium supplement in diet Pending Studies at Discharge: No Stand-Alone Forms: My [facility], Smoking Cessation Medications and DC Order Prescriptions: New ciprofloxacin HCl 500 mg Tablet 500 mg PO BID 10 Days Qty: 20 RF: 0 tamsulosin 0.4 mg Capsule 0.4 mg PO QAM 30 Days Qty: 30 RF: 0 Continued cyanocobalamin (vitamin B-12) [Vitamin B-12] 1,000 mcg Tablet 1,000 mcg PO QAM RF: 0 ferrous sulfate [iron] 325 mg (65 mg iron) Tablet 325 mg PO QAM RF: 0 cholecalciferol (vitamin D3) [Vitamin D3] 1,000 unit Capsule 2,000 mcg PO QAM RF: 0 cranberry extract [Cranberry Concentrate] 500 mg Capsule 500 mg PO QAM RF: 0 raloxifene 60 mg tablet 60 mg PO QAM RF: 0 Excedrin Extra Strength 250-250-65 mg Tablet 2 tab PO UD RF: 0 Changed potassium chloride [Klor-Con M10] 10 mEq Tablet,Er Particles/Crystals 20 meq PO QAM Qty: 30 RF: 0 Discharge Orders: Discharge Order (Routine); Ordered 01/25/20 Ordered By: Natividad Ordaz Admission Data Admit Date/Time: 01/20/20 15:18 Attending Provider: Natividad Ordaz Admit Provider: Sameer Burt Primary Care Provider: Indu Ambrocio Other Providers: Guillermo Joshua ; Sameer Burt ; Matt Hines Other Interventions: Discharge Summary Assessment (RN) Last Done: 01/25/20 13:06 DC Date/Time DO NOT enter until pt leaves facility: 01/25/20 13:50
== END 2020-01-25 13:50 | disposition home or self-care (01) | DRG 854 ==
LOC: ED 10:24 → 3N 15:18 → SUATTDRO 15:18 → 3N 17:50 → 1E 18:19 → 2W 01-22 14:28 → 3W 01-24 21:22

== ENCOUNTER 2020-12-20 10:17 | Observation (INO) ==
[2020-12-20] MEDS ORDERED: SODIUM CHLORIDE 0.9% 1000ML 1,000 ML IV SCH (11:00)
[2020-12-20] MEDS ORDERED: cefTRIAXone SODIUM 2,000 MG/70 ML BAG IV STA (11:04)
[2020-12-20] MEDS ORDERED: ACETAMINOPHEN 500 MG TAB PO STA (11:06)
--- NOTE | 2020-12-20 11:16 | XRay Report ---
XR chest 1V portable CLINICAL HISTORY: fever COMPARISON STUDY: 01/24/2020 FINDINGS: The heart is mildly enlarged. There is no failure. There is no focal pulmonary consolidatio n. There are no pleural effusions. There has been interval resolution of the previously identified ri ght pleural effusion with associated basilar airspace opacities[ IMPRESSION: 1. Mild cardiomegaly. No acute findings. ACT 112: Negative or not required by law. Electronically signed by: Bimal Taylor M.D. 12/20/2020 11:15 AM
[2020-12-20 11:17] LABS: Basophils # (auto) 0.04 K/uL (0-0.2); Basophils % (auto) 0.4 %; Eosinophils # (auto) 0.04 K/uL (0-0.5); Eosinophils % (auto) 0.4 %; Hematocrit (blood only) 38.1 % (37-47); Hemoglobin 12.5 g/dL (12.0-16.0); Immature Granulocytes # (auto) 0.02 K/uL (0.00-0.02); Immature Granulocytes % (auto) 0.2 %; Mean Corpuscular Hemoglobin 30.5 pg (25-34); Mean Corpuscular Hgb Conc 32.8 g/dL (32-36); Mean Corpuscular Volume 92.9 fL (80-100); Mean Platelet Volume 10.1 fL (7.4-10.4); Monocytes # (auto) 1.03 K/uL (0.11-0.59); Monocytes % (auto) 11.6 %; Neutrophils # (auto) 6.98 K/uL (1.4-6.5); Neutrophils % (auto) 78.4 %; Platelet Count 378 K/uL (130-400); RDW Coefficient of Variation 14.1 % (11.5-14.5); RDW Standard Deviation 48.3 fL (36.4-46.3); White Blood Count 8.91 K/uL (4.8-10.8)
[2020-12-20 11:32] LABS: Alanine Aminotransferase 18 U/L (12-78); Albumin Globulin Ratio 0.7 (0.9-2); Albumin Level 3.4 gm/dl (3.4-5.0); Alkaline Phosphatase 121 U/L (45-117); Aspartate Aminotransferase 7 U/L (15-37); BUN Creatinine Ratio 17.4 (10-20); Bilirubin,Total 0.4 mg/dl (0.2-1); Blood Urea Nitrogen 17 mg/dl (7-18); Calcium 8.8 mg/dl (8.5-10.1); Carbon Dioxide 24 mmol/L (21-32); Chloride 109 mmol/L (98-107); Est GFR (African American) 65.2; Est GFR (Non-African American) 56.2; Globulin 4.7 gm/dl (2.5-4.0); Glucose 102 mg/dl (70-99); Potassium 3.7 mmol/L (3.5-5.1); Sodium 140 mmol/L (136-145); Total Protein 8.1 gm/dl (6.4-8.2)
--- NOTE | 2020-12-20 11:45 | CT Scan Report ---
ABDOMEN AND PELVIS CT WITHOUT CONTRAST CT DOSE: 428.80 mGy.cm HISTORY: Acute low back pain with fever and urinary tract infection. History of kidney stones. kidne y stones, back pain, fever TECHNIQUE: Multiaxial CT images of the abdomen and pelvis were performed without contrast. A dose lo wering technique was utilized adhering to the principles of ALARA. COMPARISON STUDY: CT abdomen and pelvis 02/11/2020 FINDINGS: Mild bibasilar atelectasis. Left hemidiaphragmatic elevation. No pneumatosis or pneumoperit oneum. Mild cardiomegaly with trace pericardial effusion. Limited evaluation of the solid abdominal o rgans without the use of IV contrast. Within the limitations of the study, the spleen, mildly atrophi c pancreas, adrenal glands, gallbladder and liver appear unremarkable with a Perla lobe. There are at least 6 nonobstructing calculi present within the right kidney measuring up to 4 mm. Are as of mild cortical thinning on the right are present. There are a few subcentimeter hypodensities of the kidneys which are too small to characterize, possibly reflective of cysts. There are at least 10 nonobstructing calculi present within the left kidney measuring up to 4 mm. There is a 1.1 x 1.9 x 1 .4 cm ovoid calculus of the left renal pelvis/proximal ureteropelvic junction resolving in associated mild to moderate hydronephrosis. Moderate adjacent inflammatory stranding is noted with associated u rothelial thickening. Mild urinary bladder wall thickening with partial distention. Findings suggest prior hysterectomy. Calcified plaque of the abdominal aorta without aneurysm. There is no adenopathy. Tiny hiatal hernia. No bowel obstruction or bowel wall thickening. Mild colonic diverticulosis. Poste rior perirectal/perianal soft tissue thickening with perirectal drain redemonstrated. Appendix is not diagnostically visualized. Midline infraumbilical fat filled hernia, diastases 4.1 cm. There is a la rge lipoma of the proximal left upper thigh which measures up to 8.0 x 3.9 cm extending outside the f [id number]. Degenerative changes of the spine, pelvis and left hip. ORIF changes of the right proxi mal femur. IMPRESSION: 1. Mild to moderate left-sided hydronephrosis secondary to a 1.1 x 1.9 x 1.4 cm calculus of the left ureteropelvic junction. Moderate inflammatory stranding within the left renal sinus may be reactive o r reflect superimposed infection. Correlate with urinalysis. 2. Nonobstructing bilateral nephrolithiasis. 3. Posterior perirectal/perianal soft tissue thickening with perirectal drain again noted. 4. Additional findings as above. ACT 112: Negative or not required by law. The above report was generated using voice recognition software. It may contain grammatical, syntax o r spelling errors. Electronically signed by: Bright Hunter M.D. 12/20/2020 11:44 AM
[2020-12-20 12:34] LABS: Appearance Urine Turbid (Clear); Bacteria Urine Automated 4+ (Negative); Bilirubin Urine Negative (Negative); Blood Urine 3+ (Negative); Color Urine Yellow; Glucose Urine UA Negative (Negative); Ketones Urine Trace (Negative); Leukocyte Esterase Urine 3+ (Negative); Nitrite Urine Positive (Negative); Protein Urine 2+ (Negative); RBC Urine Automated >30 /hpf (0-4); Specific Gravity Urine 1.019 (1.000-1.030); Urobilinogen Urine Negative (Negative); WBC Urine Automated >30 /hpf (0-5); pH Urine 5.5 (4.5-7.5)
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
[2020-12-20] MEDS ORDERED: KETOROLAC TROMETHAMINE 15 MG/ML VIAL IV PRN (16:23)
[2020-12-20] MEDS ORDERED: ONDANSETRON INJ 2 MG/ML 2 ML VIAL IV PRN (16:23)
[2020-12-20] MEDS ORDERED: POLYETHYLENE (MIRALAX) 17 GM PACK PO PRN (16:23)
[2020-12-20] MEDS ORDERED: ACETAMINOPHEN 325 MG TAB PO PRN (16:23)
[2020-12-20] MEDS ORDERED: MAGNESIUM HYDROXIDE SUSP 30 ML UDC PO PRN (16:23)
[2020-12-20] MEDS ORDERED: ALUMINUM/MAGNESIUM SUSP 30 ML UDC PO PRN (16:23)
[2020-12-20] MEDS: SODIUM CHLORIDE 0.9% 1000ML 1,000 ML IV SCH (16:44)
--- NOTE | 2020-12-20 16:50 | Electrocardiogram Report ---
Test Reason : Blood Pressure : / mmHG Vent. Rate : 100 BPM Atrial Rate : 100 BPM P-R Int : 150 ms QRS Dur : 062 ms QT Int : 332 ms P-R-T Axes : 063 -07 055 degrees QTc Int : 428 ms Normal sinus rhythm Low voltage QRS Abnormal ECG When compared with ECG of 21-JAN-2020 01:27, No significant change was found Confirmed by Markie Fernandez ([id number]) on 12/20/2020 4:49:38 PM Referred By: Confirmed By:Dm Fernandez
[2020-12-20] MEDS: TAMSULOSIN HCL 0.4 MG CAP PO SCH (17:50)
[2020-12-20] MEDS: FERROUS SULFATE 325 MG TAB PO SCH (17:50)
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
[2020-12-20] MEDS: POTASSIUM CHLORIDE CRTAB 20 MEQ TABCR PO SCH (20:15)
[2020-12-20] MEDS ORDERED: MELATONIN 3 MG TAB PO PRN (22:15)
[2020-12-21] MEDS: SODIUM CHLORIDE 0.9% 1000ML 1,000 ML IV SCH ×2 (05:17→23:56)
[2020-12-21 05:59] LABS: Basophils # (auto) 0.03 K/uL (0-0.2); Basophils % (auto) 0.6 %; Eosinophils # (auto) 0.04 K/uL (0-0.5); Eosinophils % (auto) 0.8 %; Hemoglobin 10.8 g/dL (12.0-16.0); Immature Granulocytes # (auto) 0.01 K/uL (0.00-0.02); Immature Granulocytes % (auto) 0.2 %; Lymphocytes # (auto) 0.89 K/uL (1.2-3.4); Lymphocytes % (auto) 16.7 %; Mean Corpuscular Hemoglobin 29.9 pg (25-34); Mean Corpuscular Hgb Conc 31.8 g/dL (32-36); Mean Corpuscular Volume 94.2 fL (80-100); Mean Platelet Volume 9.5 fL (7.4-10.4); Monocytes # (auto) 0.64 K/uL (0.11-0.59); Neutrophils # (auto) 3.72 K/uL (1.4-6.5); Neutrophils % (auto) 69.7 %; Platelet Count 296 K/uL (130-400); RDW Coefficient of Variation 14.2 % (11.5-14.5); Red Blood Count 3.61 M/uL (4.2-5.4); White Blood Count 5.33 K/uL (4.8-10.8)
[2020-12-21 06:20] LABS: BUN Creatinine Ratio 17.6 (10-20); Calcium 8.1 mg/dl (8.5-10.1); Creatinine Clr Calc Pharmacy 59.4 ml/min; Est GFR (African American) 90.8; Est GFR (Non-African American) 78.3; Potassium 4.2 mmol/L (3.5-5.1)
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
[2020-12-21] MEDS: CYANOCOBALAMIN 500 MCG TABLET (VITAMIN B-12) PO SCH (08:21)
[2020-12-21] MEDS: TAMSULOSIN HCL 0.4 MG CAP PO SCH (08:21)
[2020-12-21] MEDS: RALOXIFENE HCL 60 MG TAB PO SCH (08:21)
[2020-12-21] MEDS: POTASSIUM CHLORIDE CRTAB 20 MEQ TABCR PO SCH ×2 (08:27→21:20)
[2020-12-21] MEDS ORDERED: cefTRIAXone SODIUM 2,000 MG in DEXTROSE 5% 50 ML IV SCH (09:00)
[2020-12-21] MEDS ORDERED: NON-FORMULARY MEDICATION (Cranberry Extract [Cranberry Concentrate] 500 mg Capsule) PO SCH (09:00)
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
[2020-12-21] MEDS ORDERED: ATROPINE SULFATE 0.1 MG/ML 10ML SYR IV PRN (11:09)
[2020-12-21] MEDS ORDERED: ePHEDrine sulfate 50 MG/ML AMP IV PRN (11:09)
[2020-12-21] MEDS ORDERED: ONDANSETRON INJ 2 MG/ML 2 ML VIAL IV PRN (11:09)
[2020-12-21] MEDS ORDERED: PHENYLEPHRINE 100MCG/ML 5ML SYR IV PRN (11:09)
[2020-12-21] MEDS ORDERED: LABETALOL HCL IV 5 MG/ML 20ML IV PRN (11:09)
[2020-12-21] MEDS ORDERED: fentaNYL citrate 100 MCG/2 ML VIAL IV PRN (11:09)
[2020-12-21] MEDS ORDERED: PROPOFOL IV EMULSION 10 MG/ML 20 ML VIAL IV ONE ×2 (13:28→14:30)
[2020-12-21] MEDS ORDERED: fentaNYL citrate 100 MCG/2 ML VIAL ONE (13:28)
[2020-12-21] MEDS ORDERED: PHENYLEPHRINE 100MCG/ML 5ML SYR ONE (13:28)
[2020-12-21] MEDS ORDERED: LIDOCAINE HCL 2% 2 ML VIAL/AMP(20MG/ML) INFIL ONE (13:28)
--- NOTE | 2020-12-21 14:38 | Fluoroscopy Report ---
FL KUB CLINICAL HISTORY: LEFT STENT PLACEMENT COMPARISON STUDY: Abdomen and pelvis CT 12/20/2020. FLUOROSCOPY TIME: 8 seconds. FINDINGS: Single fluoroscopic spot image of the abdomen demonstrates a left ureteral stent. Only the proximal portion of the stent is identified and appears in good position. IMPRESSION: Fluoroscopy provided for left ureteral stent placement. ACT 112: Negative or not required by law. Electronically signed by: Allen Renner M.D. 12/21/2020 2:37 PM
--- NOTE | 2020-12-21 14:39 | Operative Report ---
PG Post Operative Report Pre & Post Diagnosis Operation Date: 12/21/20 12:45 Pre-Op Diagnosis: Left Ureteral Stone Post-Op Diagnosis: Left Ureteral Stone I identified the patient and participated in the time-out.: Yes Procedure Operation Date: 12/21/20 12:45 Actual Procedures p Cystoscopy, Left Stent Placement(Left) - Charles Mckeon MD Surgeon Markie Mckeon MD Tube Operator none Estimated Blood Loss 0 Findings Consistent with Post-Op Diagnosis Specimens none Description of Procedure The patient was identified in the preoperative holding area, appropriate informed consents were reviewed and completed and the patient was transferred to the operative suite. Upon arrival, appropriate antibiotics and anesthesia were administered and the patient was placed in dorsal lithotomy position and prepped and draped in sterile fashion. To be in the case I passed a 22 [place] cystoscope per urethra. Inspection of the bladder was conductedno abnormalities appreciated. I turned my attention to the left UO. Cannulated with a sensor wire and a 5 [place] open-ended catheter. Wire advanced the kidney without difficulty. Of note in the kidney/at the UPJ I could easily identify a very large calculus on fluoroscopy. After positioning the wire into the upper portion of the kidney, I placed a 6 [place] by 24 cm double-J ureteral stent seeing a good curl in the kidney as well as the bladder. Bladder was decompressed and the case concluded. She was reversed of anesthesia and taken to the recovery room in stable condition. There were no complications. I attest to the content of the Intraoperative Record and any orders documented therein. Any exceptions are noted below.
--- NOTE | 2020-12-21 14:57 | Anesthesiology Progress Note ---
Date of Service December 21, 2020 Anesthesia Post Procedure Vital Signs Vital Signs: Temp Pulse Pulse Pulse Pulse Resp BP 12/21/20 14:55 72 14 12/21/20 14:45 74 14 12/21/20 14:39 36.7 C 75 14 12/21/20 13:40 37.3 C 79 20 12/21/20 11:57 36.9 C 84 18 12/21/20 08:00 37.1 C 80 88 20 12/21/20 04:00 36.8 C 68 16 12/21/20 01:46 86 12/20/20 22:41 37.3 C 83 18 12/20/20 19:33 36.8 C 78 18 12/20/20 16:29 77 12/20/20 16:03 36.9 C 92 H 18 12/20/20 15:31 67 11 L 114/79 12/20/20 15:30 70 15 12/20/20 15:01 68 16 12/20/20 15:00 66 11 L 89/58 L BP BP Pulse Ox 12/21/20 14:55 107/56 L 94 12/21/20 14:45 107/58 L 94 12/21/20 14:39 100/49 L 94 12/21/20 13:40 134/67 97 12/21/20 11:57 109/69 96 12/21/20 08:00 103/63 96 12/21/20 04:00 96/56 L 97 12/21/20 01:46 12/20/20 22:41 111/60 97 12/20/20 19:33 113/66 91 12/20/20 16:29 12/20/20 16:03 135/71 95 12/20/20 15:31 12/20/20 15:30 12/20/20 15:01 12/20/20 15:00 Transfer of Care Handoff Completed per policy Notes Mental Status: alert / awake / arousable Patient Amnestic to Procedure: Yes Nausea / Vomiting: adequately controlled Pain: adequately controlled Airway Patency, RR, SpO2: stable & adequate BP & HR: stable & adequate Hydration State: stable & adequate Anesthetic Complications: no major complications apparent and Pt Satisfied with anesthetic care
--- NOTE | 2020-12-21 19:20 | Hospitalist Progress Note ---
Date of Service December 21, 2020 Assessment & Plan (1) Obstruction of left ureteropelvic junction (UPJ) due to stone: (2) UTI (urinary tract infection): s/p Ureteral stent placement 12/21 Urine culture: gram negative bacilli Blood cultures: pending afebrile, clinically improving continue IV Ceftri ff up cultures anticipate d/c home tomorrow with PO Abx ff up with Urologist (3) Hx of breast cancer: continue raloxifene (4) DVT prophylaxis: SCD/TEDS encourage ambulation Disposition: anticipate d/c home tomorrow with PO Abx Follow up: PCP Dr. Ambrocio upon discharge Admission and Anticipated Discharge Date Admission Date: December 20, 2020 Subjective ff up for ureteral stone, UTI seen resting in bed, comfortable s/p ureteral stent placement in good spirits states she feels fine overall no abdominal, flank, back pain no fever/chills, nausea no chest pain, palpitations, dizziness, dyspnea no other symptoms Review of Systems Review of Systems: All systems reviewed & are unremarkable except as noted in Subjective Physical Exam Physical Exam: General- oriented x 3, not in distress, speaks in sentences with no effort or accessory muscle use Eyes- anicteric Neck- no JVD Lungs- clear breath sounds bilaterally Heart- normal rate, regular rhythm; no murmurs Abdomen- normal bowel sounds, nondistended, soft, nontender no CVA tenderness Extremities- no pretibial edema, no calf tenderness Neuro- alert, oriented x 3; no gross focal neurologic deficits Skin- warm & dry Results & Data Results & Data ([facility]) Vital Signs (Past 12 Hours) Vital Signs Temp Pulse Pulse Pulse Pulse Pulse Resp 12/21/20 16:00 37.1 C 81 18 12/21/20 14:55 72 14 12/21/20 14:45 74 14 12/21/20 14:39 36.7 C 75 14 12/21/20 13:40 37.3 C 79 20 12/21/20 11:57 36.9 C 84 18 12/21/20 08:00 37.1 C 80 88 20 BP BP Pulse Ox 12/21/20 16:00 130/70 95 12/21/20 14:55 107/56 L 94 12/21/20 14:45 107/58 L 94 12/21/20 14:39 100/49 L 94 12/21/20 13:40 134/67 97 12/21/20 11:57 109/69 96 12/21/20 08:00 103/63 96 Laboratory Results Laboratory Results - last 24 hr 12/21/20 12/21/20 05:21 05:21 WBC 5.33 RBC 3.61 L Hgb 10.8 L Hct 34.0 L MCV 94.2 MCH 29.9 MCHC 31.8 L RDW Std Deviation 49.0 H RDW Coeff of Addie 14.2 Plt Count 296 MPV 9.5 Immature Gran % (Auto) 0.2 Neut % (Auto) 69.7 Lymph % (Auto) 16.7 [place] % (Auto) 12.0 Eos % (Auto) 0.8 Baso % (Auto) 0.6 Neut # (Auto) 3.72 Lymph # (Auto) 0.89 L [place] # (Auto) 0.64 H Eos # (Auto) 0.04 Baso # (Auto) 0.03 Immature Gran # (Auto) 0.01 Sodium 142 Potassium 4.2 Chloride 113 H Carbon Dioxide 24 Anion Gap 5.0 BUN 13 Creatinine 0.73 Est Cr Clr Drug Dosing 59.4 Est GFR ( Amer) 90.8 Est GFR (Non-Af Amer) 78.3 BUN/Creatinine Ratio 17.6 Glucose 89 Calcium 8.1 L Magnesium 2.0 (1) UTI (urinary tract infection) Hematuria presence: with hematuria Urinary tract infection type: site unspecified Qualified Code(s): N39.0 - Urinary tract infection, site not specified; R31.9 - Hematuria, unspecified
[2020-12-22] MEDS: RALOXIFENE HCL 60 MG TAB PO SCH (08:41)
[2020-12-22] MEDS: CYANOCOBALAMIN 500 MCG TABLET (VITAMIN B-12) PO SCH (08:41)
[2020-12-22] MEDS: TAMSULOSIN HCL 0.4 MG CAP PO SCH (08:41)
[2020-12-22] MEDS: POTASSIUM CHLORIDE CRTAB 20 MEQ TABCR PO SCH (08:41)
[2020-12-22] MEDS: FERROUS SULFATE 325 MG TAB PO SCH (08:41)
[2020-12-22] MEDS: cefTRIAXone SODIUM 2,000 MG in DEXTROSE 5% 50 ML IV SCH ×2 (08:43→09:30)
--- NOTE | 2020-12-22 09:19 | Urology Progress Note ---
Date of Service December 22, 2020 Assessment & Plan (1) Obstruction of left ureteropelvic junction (UPJ): 80 yo F POD #1 s/p cystoscopy and left stent placement with Dr. Mckeon. - Doing well, progressing as expected - Afebrile, VSS, no new labs today, Creatinine and WBC previously within normal limits - UC&S grew out E. coli and Klebsiella, has been on IV Ceftriaxone during admission - Okay to d/c home today from standpoint with transition to appropriate course of PO antibiotics upon discharge - Recommend continue scheduled Tamsulosin and prn Pyridium for stent discomfort - Expected clinical course reviewed, all questions answered - Will arrange follow-up outpatient with our service to discuss definitive stone management Admission and Anticipated Discharge Date Admission Date: December 20, 2020 Subjective 80 yo F POD #1 s/p cystoscopy and left stent placement with Dr. Mckeon. Pt awake, alert, and sitting up in bed. No acute issues overnight, offers no complaints at present. Denies flank, abdominal, or suprapubic pain. Tolerating ureteral stent with minimal bother. No dysuria or hematuria. Voiding spontaneously without difficulty, notes some mild frequency and urgency. No fever or chills. No nausea or vomiting. Pt ready to go home today. Chart review: Afebrile. No new labs at time of visit. UC&S - >100k E. coli, 50k cfu Klebsiella. VS - BP 120/73, HR 67, Resp 18, Temp 36.8, O2 95% on RA. No additional concerns today. Review of Systems Constitutional: as per Subjective / HPI Gastrointestinal: as per Subjective / HPI Genitourinary: as per Subjective / HPI Physical Exam Constitutional: well developed and well nourished; no acute distress and not ill appearing Respiratory: normal respiratory effort and able to speak in complete sentences; no respiratory distress and no labored breathing Cardiovascular: Extremities: no pedal edema Gastrointestinal (Abdomen): Inspection/Auscultation: abdomen normal to inspection; abdomen not distended Musculoskeletal: Head/Neck/Chest: normocephalic and head atraumatic Neurologic: moves all extremities and awake Psychiatric: Orientation: alert and oriented x 3 Genitourinary: no CVA tenderness Results & Data ([facility]) Vital Signs (Past 12 Hours) Vital Signs Temp Pulse Pulse Resp BP Pulse Ox 12/22/20 07:30 36.8 C 67 18 120/73 95 12/21/20 22:52 37.5 C 74 18 93/51 L 96 PG Care Time/CCT Total # of Minutes Spent Total Time Spent with Patient: Total time spent is greater than 50% in coordination of care (as documented) at patient's floor/unit and/or counseling patient: Coding Level of Care Code 13141 Subseq Hosp Care Lvl 2 Diagnoses Obstruction of left ureteropelvic junction (UPJ) N13.5
[2020-12-22] MEDS ORDERED: CIPROFLOXACIN 500 MG TAB PO SCH (10:00)
--- NOTE | 2020-12-22 10:33 | Hospitalist Progress Note ---
Date of Service delayed entry date of service below December 22, 2020 Assessment & Plan (1) Acute UTI: (2) Obstruction of left ureteropelvic junction (UPJ) due to stone: (1) Obstruction of left ureteropelvic junction (UPJ) due to stone: (2) UTI (urinary tract infection): s/p Ureteral stent placement 12/21 Urine culture: E coli and Klebsiella Blood cultures: Negative afebrile, clinically improved received IV Ceftri d/c on Ciprolfoxacin x 10 days ff up with Urologist as scheduled (3) Hx of breast cancer: continue raloxifene Disposition: d/c home Follow up: PCP Dr. Ambrocio and Urologist plan of care discussed with patient all questions were answered she is understanding, agreeable, comfortable with the plan of care Admission and Anticipated Discharge Date Admission Date: December 20, 2020 Subjective ff up for UTI, ureteral stone seen resting in bed, sitting up in good spirits states she feels much better overall no headache, chest pain, dyspnea, abdominal pain no problems with urination states she is ready and would like to be discharged today no other symptoms Review of Systems Review of Systems: All systems reviewed & are unremarkable except as noted in Subjective Physical Exam Physical Exam: General- oriented x 3, not in distress, speaks in sentences with no effort or accessory muscle use Eyes- anicteric Neck- no JVD Lungs- clear breath sounds bilaterally Heart- normal rate, regular rhythm; no murmurs Abdomen- normoactive bowel sounds, nondistended, soft, nontender Extremities- no pretibial edema, no calf tenderness Neuro- alert, oriented x 3; no gross focal neurologic deficits Skin- warm & dry Results & Data Results & Data ([facility]) Vital Signs (Past 12 Hours) Vital Signs Temp Pulse Pulse Resp BP Pulse Ox 12/22/20 07:30 36.8 C 67 18 120/73 95 12/21/20 22:52 37.5 C 74 18 93/51 L 96 Laboratory Results all noted and reviewed
--- NOTE | 2020-12-28 10:46 | Discharge Summary ---
Date of Service December 28, 2020 Admission HPI Per Admitting Provider Chief Complaint: Ill feeling x several weeks. 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 coli bacteremia secondary to ureterolithiasis who presents ED secondary to ill feeling times several weeks. She states the week of she developed severe left-sided back pain for approximately 2 days. She was seen in. Acute care and was treated for UTI with 3 days with Keflex. Her symptoms improved but she continued to have waxing waning back pain. The back pain eventually resolved continued to does not feel, "right. "She also complained of some mild urinary incontinence, chills and sweats. She denies documented fever, lightheadedness, dizziness, syncope, chest pain, shortness breath, cough, URI symptoms, nausea, vomiting, abdominal pain, dysuria, hematuria, melena or hematochezia. 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 Currently she feels improved after receiving IV antibiotics. In ED she did have mild elevation of temp but no signs of sepsis. Lactic acid was within normal limits. Urinalysis concerning for infection with positive nitrite and leukocyte esterase. CT abdomen pelvis revealed moderate left-sided hydronephrosis secondary to a 1 x 1.9 x 1.4 cm calculus of the left UPJ. She received 2 g IV Rocephin and started on IV fluid. Admission Exam Per Admitting Provider Constitutional: WD/WN, vitals as above, NAD, sitting up in bed, pleasant, conversing easily Head: Normocephalic, Atraumatic Eyes: PERRL, conjunctivae normal, anicteric sclerae ENMT: external ear and nose normal, oropharynx normal Neck: trachea midline, no thyromegaly normal visual inspection Respiratory: normal respiratory effort, lungs clear to auscultation, no wheeze, rales, rhonchi. Normal insp/exp effort, no accessory muscle use Cardiovascular: RRR, no murmur, no edema Vessels: no JVD or carotid bruit Chest: normal inspection of chest Abdomen: normal bowel sounds, soft, nontender, no hepatosplenomegaly Musculoskeletal: no cyanosis or clubbing, extremities motor strength 5/5 Skin: no rashes, warm and dry normal turgor Neurologic: PERRL, EOMI, accommodation nl, no face palsy, no dysarthria CN's II-XI intact bilaterally and moves all extremities Psychiatric: A+Ox3, euthymic affect : deferred Principal Diagnosis E coli and Klebsiella UTI, Ureteral Stone Discharge Exam General- oriented x 3, not in distress, speaks in sentences with no effort or accessory muscle use Eyes- anicteric Neck- no JVD Lungs- clear breath sounds bilaterally Heart- normal rate, regular rhythm; no murmurs Abdomen- normoactive bowel sounds, nondistended, soft, nontender Extremities- no pretibial edema, no calf tenderness Neuro- alert, oriented x 3; no gross focal neurologic deficits Skin- warm & dry Discharge Data Allergies Allergy/AdvReac Type Severity Reaction Status Date / Time influenza virus vaccine, Allergy Severe GILLEAN Verified 12/20/20 13:52 specific BARRE SYNDROME Sulfa (Sulfonamide Allergy Unknown Unknown Verified 12/20/20 13:52 Antibiotics) Consultations 12/20/20 13:21 Consult Urology Stat 12/20/20 13:46 ED Decision to Admit Stat Procedures Performed Operation Date: 12/21/20 12:45 Actual Procedures p Cystoscopy, Left Stent Placement(Left) - Charles Hernandez MD Ordered Studies 12/20/20 11:03 CT abd pelvis wo con Stat COMPARISON STUDY: CT abdomen and pelvis 02/11/2020 FINDINGS: Mild bibasilar atelectasis. Left hemidiaphragmatic elevation. No pneumatosis or pneumoperitoneum. Mild cardiomegaly with trace pericardial effusion. Limited evaluation of the solid abdominal organs without the use of IV contrast. Within the limitations of the study, the spleen, mildly atrophic pancreas, adrenal glands, gallbladder and liver appear unremarkable with a Perla lobe. There are at least 6 nonobstructing calculi present within the right kidney measuring up to 4 mm. Areas of mild cortical thinning on the right are present. There are a few subcentimeter hypodensities of the kidneys which are too small to characterize, possibly reflective of cysts. There are at least 10 no nobstructing calculi present within the left kidney measuring up to 4 mm. There is a 1.1 x 1.9 x 1.4 cm ovoid calculus of the left renal pelvis/proximal ureteropelvic junction resolving in associated mild to moderate hydronephrosis. Moderate adjacent inflammatory stranding is noted with associated urothelial thickening. Mild urinary bladder wall thickening with partial distention. Findings suggest prior hysterectomy. Calcified plaque of the abdominal aorta without aneurysm. There is no adenopathy. Tiny hiatal hernia. No bowel obstruction or bowel wall thickening. Mild colonic diverticulosis. Posterior perirectal/perianal soft tissue thickening with perirectal drain redemonstrated. Appendix is not diagnostically visualized. Midline infraumbilical fat filled hernia, diastases 4.1 cm. There is a large lipoma of the proximal left upper thigh which measures up to 8.0 x 3.9 cm extending outside the [id number]. Degenerative changes of the spine, pelvis and left hip. ORIF changes of the right proximal femur. IMPRESSION: 1. Mild to moderate left-sided hydronephrosis secondary to a 1.1 x 1.9 x 1.4 cm calculus of the left ureteropelvic junction. Moderate inflammatory stranding within the left renal sinus may be reactive or reflect superimposed infection. Correlate with urinalysis. 2. Nonobstructing bilateral nephrolithiasis. 3. Posterior perirectal/perianal soft tissue thickening with perirectal drain again noted. 4. Additional findings as above. 12/21/20 12:30 FL KUB Routine FL fluoroscopy <1hr Routine Hospital Course (1) Acute UTI: (2) Obstruction of left ureteropelvic junction (UPJ) due to stone: (1) Obstruction of left ureteropelvic junction (UPJ) due to stone: (2) UTI (urinary tract infection): s/p Ureteral stent placement 12/21 Urine culture: E coli and Klebsiella Blood cultures: Negative afebrile, clinically improved received IV Ceftri d/c on Ciprolfoxacin x 10 days ff up with Urologist as scheduled (3) Hx of breast cancer: continue raloxifene Disposition: d/c home Follow up: PCP Dr. Ambrocio and Urologist plan of care discussed with patient all questions were answered she is understanding, agreeable, comfortable with the plan of care Total Time Total Time Spent Total Time Spent (In Minutes): > 30 minutes Discharge Plan Discharge Items Patient Disposition: Home - Self-Care Reason For Visit: L UPJ STONE, UTI Discharge Diagnosis: LEFT URETERAL STONE S/P STENT PLACEMENT URINARY TRACT INFECTION Activity: Resume your previous activity Non-emergency contact: Primary Care Provider and Urologist Call non-emergency contact if: you have any medication questions, your symptoms worsen, your pain is not controlled, your pain is worsening, your pain is unusual for you, your pain is concerning for you and you have a fever Follow-up/Referrals: Charles Hernandez MD [Physician] - Indu Ambrocio [Primary Care Provider] - Diet: Heart Healthy Addtl Attending Provider Instructions: YOUR NEW MEDICATIONS ARE: CIPROFLOXACIN- ANTIBIOTIC FOR URINARY TRACT INFECTION CULTURELLE PROBIOTIC- TO PREVENT C. DIFF DIARRHEA DUE TO ANTIBIOTICS DRINK PLENTY OF FLUIDS. FOLLOW UP WITH DR. HERNANDEZ (UROLOGIST) IN 1-2 WEEKS. PLEASE CALL HIS OFFICE FOR AN APPOINTMENT. CONTACT INFORMATION OUTLINED ABOVE. FOLLOW UP WITH YOUR PRIMARY CARE PHYSICIAN IN 1 WEEK. CALL PRIMARY CARE PHYSICIAN OR THE UROLOGIST, OR RETURN TO THE ER IF WITH RECURRENCE/WORSENING OF SYMPTOMS INCLUDING FEVER/CHILLS, ABDOMINAL/BACK/FLANK PAIN, PROBLEMS WITH URINATION, NAUSEA/VOMITING. Pending Studies at Discharge: No Stand-Alone Forms: My [employer], Smoking Cessation Medications and DC Order Prescriptions: New ciprofloxacin HCl 500 mg Tablet 500 mg PO BID Qty: 20 RF: 0 Culturelle 10 billion cell capsule 1 cap PO DAILY Qty: 30 RF: 0 Continued potassium chloride [Klor-Con M10] 10 mEq tablet,ER particles/crystals 20 meq PO BID RF: 0 cyanocobalamin (vitamin B-12) [Vitamin B-12] 500 mcg Tablet 500 mcg PO DAILY RF: 0 cholecalciferol (vitamin D3) 1,250 mcg (50,000 unit) capsule 1,250 mcg PO WK RF: 0 ferrous sulfate [iron] 325 mg (65 mg iron) Tablet 325 mg PO 3XWK RF: 0 cranberry extract [Cranberry Concentrate] 500 mg Capsule 500 mg PO DAILY RF: 0 raloxifene 60 mg tablet 60 mg PO QAM RF: 0 Discharge Orders: Discharge Order (Routine); Ordered 12/22/20 Ordered By: Angelo Sherman Admission Data Admit Date/Time: 12/20/20 13:52 Attending Provider: Angelo Sherman Admit Provider: Angelo Sherman Primary Care Provider: Indu Ambrocio Other Providers: Santos Adamson ; Angelo Sherman Other Interventions: Discharge Summary Assessment (RN) Last Done: 12/22/20 10:47
== END 2020-12-22 11:45 | disposition home or self-care (01) ==
LOC: ED 10:17 → INTOOBSV 13:52 → 2W 13:52

== ENCOUNTER 2021-02-27 14:16 | Inpatient (IN) ==
[2021-02-27] MEDS ORDERED: ONDANSETRON INJ 2 MG/ML 2 ML VIAL IV STA (15:06)
--- NOTE | 2021-02-27 15:09 | Emergency Department Note ---
History of Present Illness General Chief complaint: Vomiting Stated complaint: WEAKNESS, UTI Time Seen by Provider: 02/27/21 14:54 Source: patient History of Present Illness Provider complaint: Vomiting Onset (ago): hour(s) Location: abdomen Severity: mild Pain Consistency: + intermittent Quality: + other (Mostly spitting up) Relieved By: + none Associated symptoms: + fever/chills (Chills no fever) and + nausea/vomiting; no chest pain, no cough and no shortness of breath Female who presents with vomiting since last night. She states that she feels nauseated and has mostly been spitting up rather than vomiting. She denies any associated abdominal pain. She states that she thinks her left ureteral stent needs to be taken out. The stent was placed in November and then in December she had lithotripsy and stent replacement. She was seen here earlier today because she was concerned about possibly brisa Covid. The patient was driven by her son 4 days ago to get a CAT scan and he told her that his family tested positive for Covid. Her test here was negative. She was given Rocephin IV and the physician spoke to urology financial institution president who stated that the office would call her today to arrange an appointment. She did not hear a call back and so she came here for further evaluation. She states she feels unwell and has chills. She denies any cough, shortness of breath, chest pain, fever, loss of taste or smell or abdominal pain. She states she has chronic diarrhea which is unchanged. She did not start her antibiotic prescription but has it at home. She states she was told to start it tomorrow. Home Medications Medication Instructions Recorded Confirmed Type ferrous sulfate [iron] 325 mg PO 3XWK 07/17/18 02/27/21 History cranberry extract [Cranberry 500 mg PO QAM 01/13/19 02/27/21 History Concentrate] raloxifene 60 mg PO QAM 01/20/20 02/27/21 History cholecalciferol (vitamin D3) 2,500 mcg PO WK 12/20/20 02/27/21 History cyanocobalamin (vitamin B-12) 500 mcg PO QAM 12/20/20 02/27/21 History [Vitamin B-12] cefdinir 300 mg PO BID #14 cap 02/27/21 02/27/21 Rx potassium chloride 10 meq PO BID 02/27/21 02/27/21 History Allergies Allergy/AdvReac Type Severity Reaction Status Date / Time influenza virus vaccine, Allergy Severe Gillean Verified 02/27/21 16:14 specific Wesco Syndrome Sulfa (Sulfonamide Allergy Unknown Unknown Verified 02/27/21 16:14 Antibiotics) cephalexin AdvReac Nausea Unverified 02/27/21 16:14 Past Med/Surg History Medical History Abscess rectal s/p drain (2018) Anemia chronic 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 Hx of breast cancer right breast (2000) s/p radiation 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 LE neuropathy Kidney stones Osteoarthritis Seizure x1 episode s/p benign brain tumor excision (1998) Surgical History History of appendectomy History of brain surgery 1998; benign tumor excision History of colonoscopy History of cystoscopy multiple cystoscopy, right ureteronephroscopy, laser litho: 02/15/20: LMA#5 at [facility] cystoscopy, left stent placement: 12/21/20: MAC sedation at [facility] History of hip surgery right intertrochanteric femoral nailing History of tooth extraction History of total knee replacement Right Hx of hysterectomy Hx of lumpectomy Right breast Family History Mother Macular degeneration Father Kidney stone Diabetes Social History Smoking Status: Never smoker Second Hand Exposure: No; Hx Alcohol Use: No Hx Substance Use: No Preferred Language: Bengali Communication Ability: Effective Visual Impairment: No Limitations Pear Picker Required: No Beliefs That Will Affect Care: None marital status: / Current Living Situation: Alone Feels Safe at Home: Yes Assistive Devices: Denture - Upper, Denture - Lower, Glasses and Hearing Aid - Bilateral Review of Systems See HPI for pertinent positives & negatives. and A total of 10 systems reviewed and were otherwise negative Physical Exam Vital Signs Vital Signs - 24 hr 02/27/21 14:32 02/27/21 15:42 02/27/21 16:10 Temperature 37.5 C Temperature Source Oral Pulse Rate 69 Pulse Rate [Finger] Respiratory Rate 16 Respiratory Effort / Characteristics Non-Labored Spontaneous Respiratory Depth Normal Respiratory Pattern Regular Blood Pressure 120/79 Blood Pressure [Left Arm] 96/60 L Blood Pressure Mean 92 Blood Pressure Mean [Left Arm] 72 Pulse Oximetry 98 97 Oxygen Delivery Method Room Air Room Air Sepsis Recent Fever Within 48 Hours No Sepsis New/Unexplained Change in Mental Status No Sepsis Action Taken by Nursing No Action Required 02/27/21 17:25 Temperature Temperature Source Pulse Rate Pulse Rate [Finger] 84 Respiratory Rate 20 Respiratory Effort / Characteristics Respiratory Depth Respiratory Pattern Blood Pressure Blood Pressure [Left Arm] 109/62 Blood Pressure Mean Blood Pressure Mean [Left Arm] 77 Pulse Oximetry 94 Oxygen Delivery Method Room Air Sepsis Recent Fever Within 48 Hours Sepsis New/Unexplained Change in Mental Status Sepsis Action Taken by Nursing Constitutional: Vital signs reviewed. Eyes: Pupils are equal round reactive to light. Conjunctiva are noninjected. ENT: Pharynx is clear without erythema or exudate. Mucous membranes are dry. Neck supple without meningeal signs. Respiratory: Clear to auscultation bilaterally. Breath sounds are equal bilaterally. Cardiovascular: Regular rate and rhythm. No rubs or gallops. GI: Soft, nondistended and nontender. Bowel sounds are present. Musculoskeletal: Mild bilateral pedal edema. No lower extremity tenderness. Integumentary: No cyanosis. or jaundice. Neurological: The patient is awake and alert. No focal deficits. Psychiatric: Anxious. Course Administered Medications Sodium Chloride (Nss) 500 mls @ 125 mls/hr IV .Q4H MEGAN Stop: 03/29/21 15:14 Last Admin: 02/27/21 15:42 Dose: 125 mls/hr Documented by: [id number] Discontinued Medications Ceftriaxone Sodium (Rocephin) 2,000 mg in 70 mls @ 140 mls/hr IV NOW STA Stop: 02/27/21 17:38 Last Infusion: 02/27/21 18:44 Dose: 0 mls/hr Documented by: [id number] Admin: 02/27/21 17:24 Dose: 140 mls/hr Documented by: [id number] Ondansetron HCl (Ondansetron Inj 2 Mg/Ml 2 Ml Vial) 4 mg IV NOW STA Stop: 02/27/21 15:07 Last Admin: 02/27/21 15:41 Dose: 4 mg Documented by: [id number] Medical Decision Making Differential Diagnosis Sepsis, UTI, dehydration, bowel obstruction, electrolyte abnormality Medical Records Attestation: I reviewed the patient's medical records. I did perform a limited focused review of portions of the patient's old chart on the electronic medical record. The patient underwent, on 01/18/21, Cystoscopy with Left Ureteronephroscopy, Retrograde Pyelogram with Left Ureteral Dilation, Laser Lithotripsy, Basket Extraction of the Stone, Left Exchange of Stent Catheter(Left) by Guillermo Joshua DO She was seen here earlier this morning for concern for COVID-19. She had blood work and a COVID-19 test which was negative. Her potassium was 3.2. White count was slightly over 10. She was discharged on Omnicef for UTI. She was given a dose of Rocephin during her visit. On February 23 she had a CAT scan of the abdomen pelvis which showed: 1. A left ureteral stent is in place. No calcifications are identified along the course of the stent. 2. There is mild to moderate left hydronephrosis. 3. Urothelial thickening seen within the left renal pelvis and along the course of left ureter with associated perinephric and periureteric stranding. This may be related to obstruction/the presence of an indwelling stent. Correlate with clinical findings and urinalysis for evidence of superimposed infection. 4. There are numerous nonobstructing bilateral renal calculi as above. 5. There are least 2 punctate bladder stones. Home Medications Current Medication List: was personally reviewed by me Laboratory Data Attestation: I reviewed the patient's lab results. Result diagrams: 02/27/21 15:12 02/27/21 15:12 Lab Results 02/27/21 02/27/21 02/27/21 Range/Units 15:12 15:12 15:12 WBC 9.04 (4.8-10.8) K/uL RBC 3.87 L (4.2-5.4) M/uL Hgb 12.0 (12.0-16.0) g/dL Hct 35.6 L (37-47) % MCV 92.0 (80-100) fL MCH 31.0 (25-34) pg MCHC 33.7 (32-36) g/dL RDW Std Deviation 50.1 H (36.4-46.3) fL RDW Coeff of Addie 14.8 H (11.5-14.5) % Plt Count 269 (130-400) K/uL MPV 9.8 (7.4-10.4) fL Immature Gran % (Auto) 0.1 % Neut % (Auto) 90.3 % Lymph % (Auto) 4.6 % Lee % (Auto) 4.8 % Eos % (Auto) 0.1 % Baso % (Auto) 0.1 % Neut # (Auto) 8.16 H (1.4-6.5) K/uL Lymph # (Auto) 0.42 L (1.2-3.4) K/uL Lee # (Auto) 0.43 (0.11-0.59) K/uL Eos # (Auto) 0.01 (0-0.5) K/uL Baso # (Auto) 0.01 (0-0.2) K/uL Immature Gran # (Auto) 0.01 (0.00-0.02) K/uL PT 9.8 (9.0-12.0) Seconds INR 1.0 (0.9-1.1) APTT 24.3 (21.0-31.0) Seconds PTT Ratio 0.9 Sodium 139 (136-145) mmol/L Potassium 3.7 D (3.5-5.1) mmol/L Chloride 110 H (98-107) mmol/L Carbon Dioxide 25 (21-32) mmol/L Anion Gap 4.0 (3-11) BUN 12 (7-18) mg/dl Creatinine 0.84 (0.6-1.2) mg/dl Est Cr Clr Drug Dosing 52.5 ml/min Est GFR ( Amer) 76.6 Est GFR (Non-Af Amer) 66.1 BUN/Creatinine Ratio 14.0 (10-20) Glucose 151 H (70-99) mg/dl Lactate (0.4-2.0) mmol/L Calcium 8.1 L (8.5-10.1) mg/dl Magnesium 2.1 (1.8-2.4) mg/dl Total Bilirubin 0.4 (0.2-1) mg/dl AST 8 L (15-37) U/L ALT 14 (12-78) U/L Alkaline Phosphatase 117 (45-117) U/L Troponin I < 0.015 (0-0.045) ng/ml Total Protein 7.4 (6.4-8.2) gm/dl Albumin 3.2 L (3.4-5.0) gm/dl Globulin 4.2 H (2.5-4.0) gm/dl Albumin/Globulin Ratio 0.8 L (0.9-2) 02/27/21 Range/Units 15:12 WBC (4.8-10.8) K/uL RBC (4.2-5.4) M/uL Hgb (12.0-16.0) g/dL Hct (37-47) % MCV (80-100) fL MCH (25-34) pg MCHC (32-36) g/dL RDW Std Deviation (36.4-46.3) fL RDW Coeff of Addie (11.5-14.5) % Plt Count (130-400) K/uL MPV (7.4-10.4) fL Immature Gran % (Auto) % Neut % (Auto) % Lymph % (Auto) % Lee % (Auto) % Eos % (Auto) % Baso % (Auto) % Neut # (Auto) (1.4-6.5) K/uL Lymph # (Auto) (1.2-3.4) K/uL Lee # (Auto) (0.11-0.59) K/uL Eos # (Auto) (0-0.5) K/uL Baso # (Auto) (0-0.2) K/uL Immature Gran # (Auto) (0.00-0.02) K/uL PT (9.0-12.0) Seconds INR (0.9-1.1) APTT (21.0-31.0) Seconds PTT Ratio Sodium (136-145) mmol/L Potassium (3.5-5.1) mmol/L Chloride (98-107) mmol/L Carbon Dioxide (21-32) mmol/L Anion Gap (3-11) BUN (7-18) mg/dl Creatinine (0.6-1.2) mg/dl Est Cr Clr Drug Dosing ml/min Est GFR ( Amer) Est GFR (Non-Af Amer) BUN/Creatinine Ratio (10-20) Glucose (70-99) mg/dl Lactate 1.0 (0.4-2.0) mmol/L Calcium (8.5-10.1) mg/dl Magnesium (1.8-2.4) mg/dl Total Bilirubin (0.2-1) mg/dl AST (15-37) U/L ALT (12-78) U/L Alkaline Phosphatase (45-117) U/L Troponin I (0-0.045) ng/ml Total Protein (6.4-8.2) gm/dl Albumin (3.4-5.0) gm/dl Globulin (2.5-4.0) gm/dl Albumin/Globulin Ratio (0.9-2) Imaging Data Radiologist's Impression: Chest/Abdomen X-ray 02/27/21 15:06 XR abdomen 2V w PA chest HISTORY: 80 years-old Female vomitting eval for obstruction acute vomiting with sepsis COMPARISON: Chest radiograph 02/27/2021, CT abdomen and pelvis 2020. TECHNIQUE: PA view the chest with erect and supine views of the abdomen FINDINGS: Cardiac mediastinal and hilar silhouettes are unchanged. Mild interstitial coarsening of the lung bases unchanged. No pneumothorax, pleural effusion, airspace consolidation or overt pulmonary edema. Bones of the chest appear grossly intact. Left ureteral stent appears to be in satisfactory positioning with proximal portion overlying the superior pole of the left kidney. Numerous calculi of the bilateral kidneys redemonstrated, most which measure up to approximately 3 mm. 11 mm calculus of the inferior pole left kidney. No ureteral calculi identified. Pelvic basin calcifications suggestive of phleboliths. Nonobstructive bowel gas pattern. No pneumatosis or pneumoperitoneum. Partially imaged hardware of the right femur. Lumbar levoscoliosis. IMPRESSION: 1. No acute process of the chest. 2. Nonobstructive bowel gas pattern. 3. Stable positioning of the left ureteral stent. No ureteral calculi identified 4. Bilateral nephrolithiasis. ACT 112: Negative or not required by law. The above report was generated using voice recognition software. It may contain grammatical, syntax or spelling errors. Electronically signed by: Bright Hunter M.D. 02/27/2021 4:46 PM ECG Data Attestation: I personally reviewed and interpreted this ECG as follows: Indication: + vomiting Rate (beats per minute): 79 Rhythm: + normal sinus ECG ST segments: no ST elevation ECG Findings: + Other (Low voltage QRS); no PVCs MDM Narrative I did evaluate the patient as noted above. The patient is presenting with malaise and vomiting. She had similar symptoms last night and was seen here earlier today and felt better and was sent home with antibiotics. She is presenting today with recurrent symptoms. Her blood pressure is 96/60. IV access was established. I did treat her with normal saline IV. She was also given Zofran IV. I did place an order for continuous cardiac monitoring. The monitor showed normal sinus rhythm at a rate of 80 bpm. I did order and personally review the patient's 12-lead EKG as described above. There is no evidence of acute ischemia. I did order and personally reviewed the images of the patient's chest and abdominal x-rays as described above. This stent is in place. There is no evidence of bowel obstruction or acute process within the chest. I did order and review the patient's blood work as noted in the [facility] medical record. CBC does not demonstrate leukocytosis or anemia. Platelet count is within normal limits. Electrolytes are unremarkable. Lactate is 1. Troponin is negative. I did reassess the patient. Her blood pressure somewhat improved at 109/62. She is feeling slightly better. She is concerned about going home as she felt better this morning and had to return several hours later for recurrent symptoms. I did talk to [place] of urology. She spoke to Dr. Joshua who stated that they would wait until next week to remove her stent. They recommended supportive care in the meantime. I did review the patient's urine cultures. She previously grew out Klebsiella and E. coli susceptible to Rocephin. I therefore treated her with Rocephin 2 g IV. She was hospitalized for further care and evaluation. I did discuss the case with the hospitalist and director of casework department. Impression & Plan Complicated urinary tract infection, Acute hypotension, Vomiting Discharge Plan Visit Data Chief Complaint: Vomiting Stated Complaint: WEAKNESS, UTI ED Provider: Billy Parks Discharge Problem: Complicated urinary tract infection, Acute hypotension, Vomiting Patient Disposition: Being Evaluated by Hospitalist Forms Stand Alone Forms: My [facility] Prescriptions Prescriptions: No Action cyanocobalamin (vitamin B-12) [Vitamin B-12] 500 mcg Tablet 500 mcg PO QAM RF: 0 cholecalciferol (vitamin D3) 1,250 mcg (50,000 unit) capsule 2,500 mcg PO WK RF: 0 ferrous sulfate [iron] 325 mg (65 mg iron) Tablet 325 mg PO 3XWK RF: 0 cranberry extract [Cranberry Concentrate] 500 mg Capsule 500 mg PO QAM RF: 0 raloxifene 60 mg tablet 60 mg PO QAM RF: 0 cefdinir 300 mg capsule 300 mg PO BID Qty: 14 RF: 0 potassium chloride 10 mEq tablet extended release 10 meq PO BID RF: 0 Referrals Referrals: Indu Ambrocio [Primary Care Provider] - Discharge Problem: Vomiting Qualifiers: Vomiting type: unspecified Vomiting Intractability: non-intractable Nausea presence: with nausea Qualified Code(s): R11.2 - Nausea with vomiting, unspecified
[2021-02-27 15:38] LABS: Basophils # (auto) 0.01 K/uL (0-0.2); Basophils % (auto) 0.1 %; Eosinophils # (auto) 0.01 K/uL (0-0.5); Eosinophils % (auto) 0.1 %; Hematocrit (blood only) 35.6 % (37-47); Immature Granulocytes # (auto) 0.01 K/uL (0.00-0.02); Immature Granulocytes % (auto) 0.1 %; Lymphocytes # (auto) 0.42 K/uL (1.2-3.4); Lymphocytes % (auto) 4.6 %; Mean Corpuscular Hgb Conc 33.7 g/dL (32-36); Mean Platelet Volume 9.8 fL (7.4-10.4); Monocytes # (auto) 0.43 K/uL (0.11-0.59); Monocytes % (auto) 4.8 %; Neutrophils # (auto) 8.16 K/uL (1.4-6.5); Neutrophils % (auto) 90.3 %; Platelet Count 269 K/uL (130-400); RDW Coefficient of Variation 14.8 % (11.5-14.5); RDW Standard Deviation 50.1 fL (36.4-46.3); Red Blood Count 3.87 M/uL (4.2-5.4); White Blood Count 9.04 K/uL (4.8-10.8)
[2021-02-27] MEDS: SODIUM CHLORIDE 0.9% 500 ML IV SCH ×2 (15:42→22:40)
[2021-02-27 15:49] LABS: Partial Thromboplastin Ratio 0.9; Partial Thromboplastin Time 24.3 Seconds (21.0-31.0); Prothrombin Time 9.8 Seconds (9.0-12.0)
[2021-02-27 16:12] LABS: Alanine Aminotransferase 14 U/L (12-78); Albumin Globulin Ratio 0.8 (0.9-2); Albumin Level 3.2 gm/dl (3.4-5.0); Alkaline Phosphatase 117 U/L (45-117); Aspartate Aminotransferase 8 U/L (15-37); Bilirubin,Total 0.4 mg/dl (0.2-1); Blood Urea Nitrogen 12 mg/dl (7-18); Calcium 8.1 mg/dl (8.5-10.1); Carbon Dioxide 25 mmol/L (21-32); Chloride 110 mmol/L (98-107); Creatinine Clr Calc Pharmacy 52.5 ml/min; Est GFR (African American) 76.6; Est GFR (Non-African American) 66.1; Globulin 4.2 gm/dl (2.5-4.0); Glucose 151 mg/dl (70-99); Magnesium 2.1 mg/dl (1.8-2.4); Potassium 3.7 mmol/L (3.5-5.1); Sodium 139 mmol/L (136-145); Total Protein 7.4 gm/dl (6.4-8.2); Troponin I < 0.015 ng/ml (0-0.045)
--- NOTE | 2021-02-27 16:48 | XRay Report ---
XR abdomen 2V w PA chest HISTORY: 80 years-old Female vomitting eval for obstruction acute vomiting with sepsis COMPARISON: Chest radiograph 02/27/2021, CT abdomen and pelvis 2020. TECHNIQUE: PA view the chest with erect and supine views of the abdomen FINDINGS: Cardiac mediastinal and hilar silhouettes are unchanged. Mild interstitial coarsening of the lung bas es unchanged. No pneumothorax, pleural effusion, airspace consolidation or overt pulmonary edema. Bon es of the chest appear grossly intact. Left ureteral stent appears to be in satisfactory positioning with proximal portion overlying the sup erior pole of the left kidney. Numerous calculi of the bilateral kidneys redemonstrated, most which m easure up to approximately 3 mm. 11 mm calculus of the inferior pole left kidney. No ureteral calculi identified. Pelvic basin calcifications suggestive of phleboliths. Nonobstructive bowel gas pattern. No pneumatosis or pneumoperitoneum. Partially imaged hardware of the right femur. Lumbar levoscolios is. IMPRESSION: 1. No acute process of the chest. 2. Nonobstructive bowel gas pattern. 3. Stable positioning of the left ureteral stent. No ureteral calculi identified 4. Bilateral nephrolithiasis. ACT 112: Negative or not required by law. The above report was generated using voice recognition software. It may contain grammatical, syntax o r spelling errors. Electronically signed by: Bright Hunter M.D. 02/27/2021 4:46 PM
[2021-02-27] MEDS ORDERED: cefTRIAXone SODIUM 2,000 MG/70 ML BAG IV STA (17:09)
--- NOTE | 2021-02-27 17:53 | History & Physical Report ---
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 Recent obstruction of Left Ureteropelvic Junction s/p ureteral stent placement at the end of December, completed 2 week course of Keflex Returning to ED today with fatigue, nausea and vomiting with abnormal UA No leukocytosis, lactate negative Discharged from ED on cefdinir (yet to fill) and urology follow up in clinic but returned to ED due to worsening chills, nausea Continue IV Rocephin, follow urine and blood cultures, IV fluids, plan for outpatient urology follow up (3) Person under investigation for COVID-19: Recent exposure to family with tested positive for covid 4 days ago Initial nasopharyngeal Cepheid panel test this morning negative Will keep as PUI on isolation precautions for now as experiencing chills, nausea, decreased appetite Repeat Cepheid panel test tomorrow for covid (4) Nausea: Continue PRN Zofran and phenergan as needed (5) Hx of breast cancer: Continue raloxifene DVT Ppx: SQ Lovenox Code status: FULL PCP: Lolly Dispo: Admitted to med/surg. Plan to return home once medically stable. Patient seen in collaboration with Dr. Landis. Please see addendum. 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 Came in ED this morning with concern for Covid exposure with fatigue and loss of appetite. Has recent covid exposures with family but tested negative with a Cepheid panel earlier today. In ED this morning was found to have abnormal UA and prescribed Cefdinir with plans to follow up with urology later this week. Has not yet picked up medication from pharmacy. Returned to ED with worsening chills, nausea and vomiting. Was hypotensive in ED at 98/63 but improved with fluids. Grew rizzo sensitive Ecoli and Klebsiella on urine culture in November. No dysuria or hematuria. Denies cough, shortness of breath, chest pain, loss of taste or smell or abdominal pain. Chronic diarrhea which is unchanged. Allergies Allergy/AdvReac Type Severity Reaction Status Date / Time influenza virus vaccine, Allergy Severe Gillean Verified 02/27/21 16:14 specific [place] Syndrome Sulfa (Sulfonamide Allergy Unknown Unknown Verified 02/27/21 16:14 Antibiotics) cephalexin AdvReac Nausea Unverified 02/27/21 16:14 Home Medications Medication Instructions Recorded Confirmed Type ferrous sulfate [iron] 325 mg PO 3XWK 07/17/18 02/27/21 History cranberry extract [Cranberry 500 mg PO QAM 01/13/19 02/27/21 History Concentrate] raloxifene 60 mg PO QAM 01/20/20 02/27/21 History cholecalciferol (vitamin D3) 2,500 mcg PO WK 12/20/20 02/27/21 History cyanocobalamin (vitamin B-12) 500 mcg PO QAM 12/20/20 02/27/21 History [Vitamin B-12] cefdinir 300 mg PO BID #14 cap 02/27/21 02/27/21 Rx potassium chloride 10 meq PO BID 02/27/21 02/27/21 History Past Med/Surg History Medical History Abscess rectal s/p drain (2018) Anemia chronic 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 Hx of breast cancer right breast (2000) s/p radiation 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 LE neuropathy Kidney stones Osteoarthritis Seizure x1 episode s/p benign brain tumor excision (1998) Surgical History History of appendectomy History of brain surgery 1998; benign tumor excision History of colonoscopy History of cystoscopy multiple cystoscopy, right ureteronephroscopy, laser litho: 02/15/20: LMA#5 at [facility] cystoscopy, left stent placement: 12/21/20: MAC sedation at [facility] History of hip surgery right intertrochanteric femoral nailing History of tooth extraction History of total knee replacement Right Hx of hysterectomy Hx of lumpectomy Right breast Family History Mother Macular degeneration Father Kidney stone Diabetes Social History Smoking Status: Never smoker Second Hand Exposure: No; Hx Alcohol Use: No Hx Substance Use: No Preferred Language: Danish Communication Ability: Effective Visual Impairment: No Limitations Lockstitch Front Edge Tape Sewer Required: No Beliefs That Will Affect Care: None marital status: / Current Living Situation: Alone Feels Safe at Home: Yes Assistive Devices: Denture - Upper, Denture - Lower, Glasses and Hearing Aid - Bilateral Review of Systems Review of Systems: At least ten systems reviewed and negative except as noted in the HPI. Physical Exam Physical Exam: Please see Dr. Landis's note for physical exam details Results & Data Results & Data ([facility]) Vital Signs (Past 12 Hours) Vital Signs Temp Pulse Pulse Resp BP BP Pulse Ox 02/27/21 17:25 84 20 109/62 94 02/27/21 15:42 97 02/27/21 14:32 37.5 C 69 16 120/79 98 Laboratory Results Short CBC 02/27/21 Range/Units 15:12 WBC 9.04 (4.8-10.8) K/uL Hgb 12.0 (12.0-16.0) g/dL Hct 35.6 L (37-47) % Plt Count 269 (130-400) K/uL BMP 02/27/21 15:12 Sodium 139 Potassium 3.7 D Chloride 110 H Carbon Dioxide 25 BUN 12 Creatinine 0.84 Glucose 151 H Calcium 8.1 L Cardiac Enzymes 02/27/21 Range/Units 15:12 Troponin I < 0.015 (0-0.045) ng/ml Liver Function 02/27/21 Range/Units 15:12 Total Bilirubin 0.4 (0.2-1) mg/dl AST 8 L (15-37) U/L ALT 14 (12-78) U/L Alkaline Phosphatase 117 (45-117) U/L Albumin 3.2 L (3.4-5.0) gm/dl Diagnostic Findings Chest/abdomen XR: IMPRESSION: 1. No acute process of the chest. 2. Nonobstructive bowel gas pattern. 3. Stable positioning of the left ureteral stent. No ureteral calculi identified 4. Bilateral nephrolithiasis. Code Status & VTE Plan VTE Prophylaxis Plan VTE Prophylaxis will be ordered: Yes Supervising Physician Co-Signing Physician Notes I saw this patient with the physician home health assistant, I participated in the history, physical, review of systems, and physical exam. I reviewed the medications with the patient and the physician home health assistant and helped reconcile the medications. I helped take a detailed family and social history as well. I formulated the assessment and plan personally with the physician home health assistant and went over it with the patient. ROS-No Headache, No Visual Changes, + Nausea, + Vomiting, No Fever, No Chills, No Neck Pain or Stiffness, No Chest Pain, No Palpitations, No SOB, No TAMAYO, No Cough, No Sputum, No Wheezing, No Abdominal Pain, No Diarrhea, No Hematemesis, No Hemoptysis, No Unexpected Weight Loss, No Flank pain, No Melena, No Hematochezia, No Frequency, No Urgency, No Burning, No Hematuria, No Rashes, No Diaphoresis. Appetite is Normal, +Weakness Physical Exam Gen-AAO x 3, NAD, Afebrile Head-NCAT, EOMI, PERRLA, Anicteric Sclera, No Posterior Pharyngeal Erythema Neck-Supple, No JVD, No Thyromegaly, No Masses, No LAD, No Bruits Lungs-Clear to Auscultation Bilaterally, No Rales, No Rhonchi, No Wheezing, No Crepitus Chest-No S4, +S1, +S2, No S3, No Murmurs, No Rubs, No Gallops, No Ectopy Abdomen-Soft, Bowel Sounds Present, Non Tender, Non Distended, No Hepatomegaly, No Splenomegaly, No Palpable Masses, No Rebound, No Rigidity, No Guarding Musculoskeletal-Full Range of Motion Bilaterally, No CVAT Extremities-No Cyanosis, No Clubbing, No Edema Nuero-Cranial Nerves II-XII grossly intact, Motor WNL, DTRs WNL, Strength WNL, Non Focal Psych-Normal Mood
[2021-02-27] MEDS ORDERED: POLYETHYLENE (MIRALAX) 17 GM PACK PO PRN (21:43)
[2021-02-27] MEDS ORDERED: ACETAMINOPHEN 325 MG TAB PO PRN (21:43)
[2021-02-27] MEDS: ENOXAPARIN INJ 40 MG/0.4 ML SYR SQ SCH (23:22)
[2021-02-27] MEDS: SODIUM CHLORIDE 0.9% 1000ML 1,000 ML IV SCH (23:22)
[2021-02-27] MEDS: POTASSIUM CHLORIDE 10 MEQ TABCR PO SCH (23:22)
[2021-02-28 05:14] LABS: Appearance Urine Cloudy (Clear); Bacteria Urine Automated Negative (Negative); Bilirubin Urine Negative (Negative); Blood Urine 3+ (Negative); Color Urine Yellow; Epithelial Cell Urine Auto 20-30 /lpf (0-5); Glucose Urine UA Negative (Negative); Ketones Urine 1+ (Negative); Leukocyte Esterase Urine 3+ (Negative); Nitrite Urine Negative (Negative); Protein Urine 2+ (Negative); Specific Gravity Urine 1.017 (1.000-1.030); Urobilinogen Urine Negative (Negative); WBC Urine Automated >30 /hpf (0-5); pH Urine 5.5 (4.5-7.5)
[2021-02-28 05:26] LABS: RBC Urine Automated >30 /hpf (0-4)
[2021-02-28 05:48] LABS: Influenza A virus by PCR Negative (Neg); Influenza B virus by PCR Negative (Neg); RSV by PCR Negative (Neg); SARS CoV2 RNA(COVID-19) InHosp NEGATIVE (Negative)
[2021-02-28] MEDS: ONDANSETRON INJ 2 MG/ML 2 ML VIAL IV PRN (08:01)
[2021-02-28] MEDS: FERROUS SULFATE 325 MG TAB PO SCH (08:03)
[2021-02-28] MEDS: POTASSIUM CHLORIDE 10 MEQ TABCR PO SCH ×2 (08:04→20:20)
[2021-02-28] MEDS: CYANOCOBALAMIN 500 MCG TABLET (VITAMIN B-12) PO SCH (08:04)
[2021-02-28] MEDS: RALOXIFENE HCL 60 MG TAB PO SCH (08:04)
[2021-02-28 08:15] LABS: Hemoglobin 11.2 g/dL (12.0-16.0); Mean Corpuscular Hemoglobin 31.5 pg (25-34); Mean Corpuscular Hgb Conc 33.9 g/dL (32-36); Mean Corpuscular Volume 92.7 fL (80-100); Mean Platelet Volume 9.5 fL (7.4-10.4); Platelet Count 262 K/uL (130-400); RDW Standard Deviation 51.2 fL (36.4-46.3); Red Blood Count 3.56 M/uL (4.2-5.4); White Blood Count 8.39 K/uL (4.8-10.8)
[2021-02-28 08:48] LABS: BUN Creatinine Ratio 12.7 (10-20); Creatinine Clr Calc Pharmacy 54.9 ml/min; Est GFR (African American) 81.3; Est GFR (Non-African American) 70.1; Potassium 3.2 mmol/L (3.5-5.1)
[2021-02-28] MEDS ORDERED: NON-FORMULARY MEDICATION (Cranberry Extract [Cranberry Concentrate] 500 mg Capsule) PO SCH (09:00)
[2021-02-28] MEDS: PROMETHAZINE HCL 6.25 MG in SODIUM CHLORIDE 0.9% 50 ML IV PRN ×3 (09:44→23:49)
[2021-02-28] MEDS ORDERED: POTASSIUM CHLORIDE PWD 20 MEQ PACK PO ONE (09:45)
[2021-02-28] MEDS: ENOXAPARIN INJ 40 MG/0.4 ML SYR SQ SCH ×2 (09:47→20:21)
[2021-02-28] MEDS: SODIUM CHLORIDE 0.9% 1000ML 1,000 ML IV SCH (09:47)
--- NOTE | 2021-02-28 12:37 | Electrocardiogram Report ---
Test Reason : Blood Pressure : / mmHG Vent. Rate : 079 BPM Atrial Rate : 079 BPM P-R Int : 188 ms QRS Dur : 072 ms QT Int : 382 ms P-R-T Axes : 057 -11 058 degrees QTc Int : 438 ms Normal sinus rhythm Low voltage QRS Borderline ECG When compared with ECG of 27-FEB-2021 04:45, No significant change was found Confirmed by Cole Martin ([id number]) on 02/28/2021 12:37:09 PM Referred By: REFERRED SELF Confirmed By:Cole Martin
[2021-02-28] MEDS ORDERED: cefTRIAXone SODIUM 1,000 MG in DEXTROSE 5% 50 ML IV SCH (16:00)
--- NOTE | 2021-02-28 18:19 | Hospitalist Progress Note ---
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 Nausea, vomiting Possible Complicate UTI Possible bacteremia -Chest/Abd X ray:No acute process of the chest. Nonobstructive bowel gas pattern. Stable positioning of the left ureteral stent. No ureteral calculi identified Bilateral nephrolithiasis. -Blood Cx: 11/25: Gram-positive cocci in chains -Urine culture: Streptococcus species -Repeat urine culture: pending -Repeat blood cultures: pending -Empirically on Rocephin Consider echo if needed Needs follow-up with urology upon discharge H/O Obstruction of Left Ureteropelvic Junction S/P Ureteral stent placement at the end of December, completed 2 week course of Keflex Discharged from ED on cefdinir (Not yet to fill) Management as above (3) Person under investigation for COVID-19: Recent exposure to family who tested positive for covid 4 days ago COVID Screen : Negative X 2 (4) Nausea: Continue PRN Zofran and Phenergan PRN (5) Hx of breast cancer: Continue raloxifene Hypokalemia Replace electrolytes as needed DVT Px: SQ Lovenox Code status: FULL CODE PCP: Admission and Anticipated Discharge Date Admission Date: February 27, 2021 Subjective Patient is seen and examined at bedside States having nausea, decreased appetite and minimal hematuria today Denies chest pain, shortness of breath, dizziness, abdominal pain Offers no other complaints Review of Systems Review of Systems: All systems reviewed & are unremarkable except as noted in HPI & below Physical Exam Physical Exam: Physical Exam: Vitals signs as noted above General Appearance:Moderately built and nourished, no apparent distress Head: normocephalic, Atraumatic Eyes: normal inspection, EOMI Neck: supple, Trachea midline Respiratory/Chest: Normal breath sounds, CTA, No accessory muscle use Cardiovascular: S1, S2, No murmur Abdomen/GI:Soft, Non tender, Bowel sounds present Extremities/Musculoskelatal:normal inspection, no edema Neurologic/Psych:AAOX3, grossly no focal neurological deficits Skin: normal color, warm Results & Data Results & Data ([facility]) Vital Signs (Past 12 Hours) Vital Signs Temp Pulse Resp BP Pulse Ox 02/28/21 15:23 36.8 C 81 18 119/74 94 02/28/21 07:53 37.0 C 76 18 133/57 L 94 Laboratory Results Short CBC 02/28/21 Range/Units 07:44 WBC 8.39 (4.8-10.8) K/uL Hgb 11.2 L (12.0-16.0) g/dL Hct 33.0 L (37-47) % Plt Count 262 (130-400) K/uL BMP 02/28/21 07:44 Sodium 142 Potassium 3.2 L Chloride 111 H Carbon Dioxide 24 BUN 10 Creatinine 0.80 Glucose 113 H Calcium 8.0 L Urine 02/28/21 Range/Units 05:00 Urine Color Yellow Urine Appearance Cloudy A (Clear) Urine pH 5.5 (4.5-7.5) Ur Specific [place] 1.017 (1.000-1.030) Urine Protein 2+ H (Negative) Urine Glucose (UA) Negative (Negative)
[2021-03-01] MEDS: PROMETHAZINE HCL 6.25 MG in SODIUM CHLORIDE 0.9% 50 ML IV PRN ×2 (07:12→13:38)
[2021-03-01] MEDS: RALOXIFENE HCL 60 MG TAB PO SCH (08:11)
[2021-03-01] MEDS: POTASSIUM CHLORIDE 10 MEQ TABCR PO SCH (08:11)
[2021-03-01] MEDS: CYANOCOBALAMIN 500 MCG TABLET (VITAMIN B-12) PO SCH (08:11)
[2021-03-01] MEDS: ENOXAPARIN INJ 40 MG/0.4 ML SYR SQ SCH ×2 (08:12→21:08)
[2021-03-01 08:18] LABS: Hematocrit (blood only) 33.7 % (37-47); Mean Corpuscular Hemoglobin 30.5 pg (25-34); Mean Corpuscular Hgb Conc 32.6 g/dL (32-36); Mean Corpuscular Volume 93.4 fL (80-100); Mean Platelet Volume 9.6 fL (7.4-10.4); Platelet Count 271 K/uL (130-400); RDW Coefficient of Variation 14.8 % (11.5-14.5); RDW Standard Deviation 50.8 fL (36.4-46.3); Red Blood Count 3.61 M/uL (4.2-5.4); White Blood Count 6.46 K/uL (4.8-10.8)
[2021-03-01 08:55] LABS: BUN Creatinine Ratio 12.2 (10-20); Calcium 8.3 mg/dl (8.5-10.1); Creatinine Clr Calc Pharmacy 66.6 ml/min; Est GFR (African American) 97.4; Magnesium 2.1 mg/dl (1.8-2.4); Potassium 3.1 mmol/L (3.5-5.1)
[2021-03-01] MEDS ORDERED: POTASSIUM CHLORIDE CRTAB 20 MEQ TABCR PO ONE (10:00)
[2021-03-01] MEDS: ONDANSETRON INJ 2 MG/ML 2 ML VIAL IV PRN ×2 (10:34→16:32)
[2021-03-01] MEDS: FAMOTIDINE 20 MG in SYRINGE 3 ML IV SCH ×2 (11:12→21:02)
[2021-03-01] MEDS: AMPICILLIN 2,000 MG in SODIUM CHLOR 0.9% AD-VAN 100 ML IV SCH ×3 (12:32→23:41)
--- NOTE | 2021-03-01 12:35 | XRay Report ---
KUB CLINICAL HISTORY: Nausea and vomiting. Kidney stone. COMPARISON STUDY: CT of the abdomen and pelvis February 23, 2021. Abdominal series February 27, 2021. FINDINGS: A density projecting over the right mid abdomen is likely artifactual. This may be on the p atient. Clustered calculi versus a fragmented calculus within lower pole of the left kidney are again noted. Small right renal calculi are present. There are additional small bilateral renal calculi. Le ft ureteral stent remains in place. No ureteral calculi are identified. Pelvic calcifications likely reflect phleboliths. The bowel gas pattern is normal. IMPRESSION: 1. Left ureteral stent in place. 2. Bilateral nephrolithiasis. 3. No ureteral calculi identified. ACT 112: Negative or not required by law. Electronically signed by: Redd Salcido M.D. 03/01/2021 12:34 PM
--- NOTE | 2021-03-01 15:37 | Hospitalist Progress Note ---
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 Nausea, vomiting Complicated UTI Possible bacteremia -Chest/Abd X ray:No acute process of the chest. Nonobstructive bowel gas pattern. Stable positioning of the left ureteral stent. No ureteral calculi identified Bilateral nephrolithiasis. -Blood Cx: 11/25: Gamma hemolytic strep species -Urine culture: Enterococcus fecalis -Repeat blood cultures: Negative to date -Empirically on Rocephin>> transition to ampicillin Consult urology H/O Obstruction of Left Ureteropelvic Junction S/P Ureteral stent placement at the end of December, completed 2 week course of Keflex Discharged from ED on cefdinir (Not yet to fill) Management as above (3) Person under investigation for COVID-19: Recent exposure to family who tested positive for covid 4 days ago COVID Screen : Negative X 2 (4) Nausea: Continue PRN Zofran and Phenergan PRN (5) Hx of breast cancer: Continue raloxifene Hypokalemia Replace electrolytes as needed DVT Px: SQ Lovenox Code status: FULL CODE PCP: Admission and Anticipated Discharge Date Admission Date: February 27, 2021 Subjective Patient is seen and examined at bedside Reports having intractable nausea overnight Denies having dysuria, hematuria, abdominal or flank pain today Discussed with patient's daughter over the phone Also denies chest pain, shortness of breath, dizziness Poor appetite secondary to nausea Review of Systems Review of Systems: All systems reviewed & are unremarkable except as noted in HPI & below Physical Exam Physical Exam: Physical Exam: Vitals signs as noted above General Appearance:Moderately built and nourished, no apparent distress Head: normocephalic, Atraumatic Eyes: normal inspection, EOMI Neck: supple, Trachea midline Respiratory/Chest: Normal breath sounds, CTA, No accessory muscle use Cardiovascular: S1, S2, No murmur Abdomen/GI:Soft, Non tender, Bowel sounds present Extremities/Musculoskelatal:normal inspection, no edema Neurologic/Psych:AAOX3, grossly no focal neurological deficits Skin: normal color, warm Results & Data Results & Data ([facility]) Vital Signs (Past 12 Hours) Vital Signs Temp Pulse Resp BP Pulse Ox 03/01/21 07:51 37 C 70 16 169/80 H 96 Laboratory Results Short CBC 03/01/21 Range/Units 07:34 WBC 6.46 (4.8-10.8) K/uL Hgb 11.0 L (12.0-16.0) g/dL Hct 33.7 L (37-47) % Plt Count 271 (130-400) K/uL BMP 03/01/21 07:34 Sodium 142 Potassium 3.1 L Chloride 110 H Carbon Dioxide 26 BUN 8 Creatinine 0.66 Glucose 125 H Calcium 8.3 L
[2021-03-02] MEDS: AMPICILLIN 2,000 MG in SODIUM CHLOR 0.9% AD-VAN 100 ML IV SCH ×4 (05:46→23:59)
[2021-03-02] MEDS: RALOXIFENE HCL 60 MG TAB PO SCH (08:05)
[2021-03-02] MEDS: CYANOCOBALAMIN 500 MCG TABLET (VITAMIN B-12) PO SCH (08:05)
[2021-03-02] MEDS: FERROUS SULFATE 325 MG TAB PO SCH (08:05)
[2021-03-02] MEDS: ENOXAPARIN INJ 40 MG/0.4 ML SYR SQ SCH ×2 (08:06→20:51)
[2021-03-02] MEDS: FAMOTIDINE 20 MG in SYRINGE 3 ML IV SCH ×2 (08:06→20:51)
[2021-03-02] MEDS: ONDANSETRON INJ 2 MG/ML 2 ML VIAL IV PRN (08:09)
[2021-03-02 08:10] LABS: BUN Creatinine Ratio 12.2 (10-20); Calcium 8.2 mg/dl (8.5-10.1); Creatinine Clr Calc Pharmacy 67.6 ml/min; Est GFR (African American) 97.9; Est GFR (Non-African American) 84.4; Potassium 2.7 mmol/L (3.5-5.1)
--- NOTE | 2021-03-02 10:11 | Urology Consultation ---
Date of Consultation March 02, 2021 Assessment & Plan (1) Complicated urinary tract infection: (2) S/P ureteral stent placement: 80 yo F admitted for suspected urinary tract infection, weakness. - Pt s/p left URS, laser lithotripsy, left stent exchange with Dr. Joshua on 01/18 - Hospital course, imaging and past medical/surgical hx reviewed - Afebrile, nontoxic, and creatinine and WBC within normal limits - Pt subjectively feels improved today - Case and imaging reviewed with Dr. Joshua - KUB shows stent in good position, recent outpatient CT A/P also reviewed - Stone burden noted in lower pole of left kidney - No acute intervention at this time - Favor supportive care with antibiotics - Recommend continue treatment with Ampicillin for 14 days total, can transition to PO upon discharge - Will arrange outpatient follow-up with our service to discuss definitive stone management Please consult our service urgently if patient develops fever >101F, intractable pain or nausea, as this will necessitate urgent surgical intervention. will sign off, thank you for the consultation. History of Present Illness Reason for Consultation: Complicated UTI Requesting Physician: Dr. Leiva Attending Physician: Ab Leiva MD History of Present Illness 80 yo F admitted for suspected urinary tract infection, weakness. PMHx reviewed and significant for nephrolithiasis, breast CA, Guillain Vanduser, hx benign intracranial neoplasm, seizure disorder osteoarthritis. Patient known to our service for nephrolithiasis. She is s/p left URS, Retrograde Pyelogram with left Ureteral dilation, laser lithotripsy, basket extraction of the stone, left stent exchange of stent catheter with Dr. Joshua on 01/18. She presented to [facility] on 02/27 with ill feelings of fatigue and nausea and concern for recent Covid exposure. Her Covid testing was negative. Treated with IV Ceftriaxone and discharged to home with course of cefdinir for suspected UTI. She returned to [facility] ED later on 02/27 with worsening fatigue, chills, nausea, and "spitting up". Afebrile, no leukocytosis, normal lactate. Urine and blood cultures obtained. She was admitted by hospitalist service. She was treated with empiric IV Ceftriaxone during admission, recently transitioned to IV Ampicillin after cultures grew out Enterococcus. Our service is consulted for complicated UTI. Chart review: Afebrile Creatinine 0.65 WBC 6.46 Hgb 11.0 UC&S (02/27, 02/28) Enterococcus BCx (02/27) prelim Enterococcus BCx (02/28) no growth x 24 hours On IV Ampicillin, previously was on Ceftriaxone Imaging KUB (03/01) IMPRESSION: 1. Left ureteral stent in place. 2. Bilateral nephrolithiasis. 3. No ureteral calculi identified. Outpatient CT A/P wo con (02/23) IMPRESSION: 1. A left ureteral stent is in place. No calcifications are identified along the course of the stent. 2. There is mild to moderate left hydronephrosis. 3. Urothelial thickening seen within the left renal pelvis and along the course of left ureter with associated perinephric and periureteric stranding. This may be related to obstruction/the presence of an indwelling stent. Correlate with clinical findings and urinalysis for evidence of superimposed infection. 4. There are numerous nonobstructing bilateral renal calculi as above. 5. There are least 2 punctate bladder stones. Patient seen and examined at bedside this AM. She is awake and resting in bed. Feeling better today. No pain at present. Tolerating diet, though notes a low appetite. Denies nausea or vomiting. Endorses that she has been "spitting up phlegm" for the past few days, but not today. Voiding without difficulty. Denies dysuria or hematuria. No fever or chills. She notes that her IV site was removed this morning because it was not working. No additional concerns today. Allergies Allergy/AdvReac Type Severity Reaction Status Date / Time influenza virus vaccine, Allergy Severe Gillean Verified 02/27/21 16:14 specific [place] Syndrome Sulfa (Sulfonamide Allergy Unknown Unknown Verified 02/27/21 16:14 Antibiotics) cephalexin AdvReac Nausea Unverified 02/27/21 16:14 Home Medications Medication Instructions Recorded Confirmed Type ferrous sulfate [iron] 325 mg PO 3XWK 07/17/18 02/27/21 History cranberry extract [Cranberry 500 mg PO QAM 01/13/19 02/27/21 History Concentrate] raloxifene 60 mg PO QAM 01/20/20 02/27/21 History cholecalciferol (vitamin D3) 2,500 mcg PO WK 12/20/20 02/27/21 History cyanocobalamin (vitamin B-12) 500 mcg PO QAM 12/20/20 02/27/21 History [Vitamin B-12] cefdinir 300 mg PO BID #14 cap 02/27/21 02/27/21 Rx potassium chloride 10 meq PO BID 02/27/21 02/27/21 History Patient History Medical History Abscess rectal s/p drain (2018) Anemia chronic 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 Hx of breast cancer right breast (2000) s/p radiation 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 LE neuropathy Kidney stones Osteoarthritis Seizure x1 episode s/p benign brain tumor excision (1998) Surgical History History of appendectomy History of brain surgery 1998; benign tumor excision History of colonoscopy History of cystoscopy multiple cystoscopy, right ureteronephroscopy, laser litho: 02/15/20: LMA#5 at [facility] cystoscopy, left stent placement: 12/21/20: MAC sedation at [facility] History of hip surgery right intertrochanteric femoral nailing History of tooth extraction History of total knee replacement Right Hx of hysterectomy Hx of lumpectomy Right breast Family History Mother Macular degeneration Father Kidney stone Diabetes Social History Smoking Status: Never smoker Second Hand Exposure: No; Hx Alcohol Use: No Hx Substance Use: No Preferred Language: Danish Communication Ability: Effective Visual Impairment: No Limitations Production Machine Tender Required: No Beliefs That Will Affect Care: None marital status: / Current Living Situation: Alone Other Information That Helps Us Care for You: No Feels Safe at Home: Yes Safety Concerns: Feels Safe At This Time Review of Systems Constitutional: as per Subjective / HPI Eyes: no problem reported Ear, Nose, Mouth, Throat: no problem reported Respiratory: no problem reported Cardiovascular: no problem reported Gastrointestinal: as per Subjective / HPI Genitourinary: as per Subjective / HPI Integumentary: no problem reported Physical Exam Constitutional: well developed and well nourished; no acute distress and not ill appearing Neck: normal visual inspection Respiratory: normal respiratory effort and able to speak in complete sentences; no respiratory distress and no labored breathing Cardiovascular: Extremities: no pedal edema Gastrointestinal (Abdomen): Inspection/Auscultation: abdomen normal to inspection; abdomen not distended Percussion/Palpation: abdomen soft; abdomen nontender and no guarding Musculoskeletal: Head/Neck/Chest: normocephalic and head atraumatic Skin: scattered ecchymoses Neurologic: moves all extremities and awake Psychiatric: Orientation: alert and oriented x 3 Genitourinary: no CVA tenderness Results & Data ([place]) Vital Signs (Past 12 Hours) Vital Signs Temp Pulse Resp BP Pulse Ox 03/02/21 07:41 36.9 C 68 16 120/68 97 03/01/21 23:47 36.9 C 70 18 146/72 H 93 PG Care Time/CCT Total # of Minutes Spent Total Time Spent with Patient: Total time spent is greater than 50% in coordination of care (as documented) at patient's floor/unit and/or counseling patient: Coding Level of Care Code 29373 Initial Inpt Care Lvl 3 Diagnoses Complicated urinary tract infection N39.0 S/P ureteral stent placement Z96.0
[2021-03-02] MEDS: POTASSIUM CHLORIDE / WTR 10 MEQ/100 ML PLCT IV SCH ×2 (10:34→11:42)
[2021-03-02] MEDS ORDERED: POTASSIUM CHLORIDE 40 MEQ in SODIUM CHLORIDE 0.9% 1000ML 500 ML IV ONE (12:00)
[2021-03-02] MEDS ORDERED: POTASSIUM CHLORIDE 40 MEQ in SODIUM CHLORIDE 0.9% 500 ML IV ONE (12:00)
--- NOTE | 2021-03-02 18:52 | Hospitalist Progress Note ---
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 Complicated UTI Bacteremia-POA -Chest/Abd X ray:No acute process of the chest. Nonobstructive bowel gas patter n. Stable positioning of the left ureteral stent. No ureteral calculi identified Bilateral nephrolithiasis. -Blood Cx: 11/25: Enterococcus -Urine culture: Enterococcus fecalis -Repeat blood cultures: Negative to date -Empirically on Rocephin>> transition to ampicillin Appreciate urology input Plan 14-day course of antibiotics H/O Obstruction of Left Ureteropelvic Junction S/P Ureteral stent placement at the end of December, completed 2 week course of Keflex Discharged from ED on cefdinir (Not yet to fill) Management as above (3) Person under investigation for COVID-19: Recent exposure to family who tested positive for covid 4 days ago COVID Screen : Negative X 2 (4) Nausea: Continue PRN Zofran and Phenergan PRN (5) Hx of breast cancer: Continue raloxifene Hypokalemia Replace electrolytes as needed DVT Px: SQ Lovenox Code status: FULL CODE PCP: Admission and Anticipated Discharge Date Admission Date: February 27, 2021 Subjective Patient is seen and examined at bedside States feeling much better today Nausea, vomiting resolved Appetite slowly improving 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 Denies dysuria, hematuria, abdominal or flank pain, chest pain, dyspnea, dizziness Review of Systems Review of Systems: All systems reviewed & are unremarkable except as noted in HPI & below Physical Exam Physical Exam: Physical Exam: Vitals signs as noted above General Appearance:Moderately built and nourished, no apparent distress Head: normocephalic, Atraumatic Eyes: normal inspection, EOMI Neck: supple, Trachea midline Respiratory/Chest: Normal breath sounds, CTA, No accessory muscle use Cardiovascular: S1, S2, No murmur Abdomen/GI:Soft, Non tender, Bowel sounds present Extremities/Musculoskelatal:normal inspection, no edema Neurologic/Psych:AAOX3, grossly no focal neurological deficits Skin: normal color, warm Results & Data Results & Data ([facility]) Vital Signs (Past 12 Hours) Vital Signs Temp Pulse Resp BP Pulse Ox 03/02/21 07:41 36.9 C 68 16 120/68 97 Laboratory Results BMP 03/02/21 07:04 Sodium 140 Potassium 2.7 L Chloride 105 Carbon Dioxide 29 BUN 8 Creatinine 0.65 Glucose 109 H Calcium 8.2 L
[2021-03-02] MEDS: POTASSIUM CHLORIDE 10 MEQ TABCR PO SCH (20:51)
[2021-03-03] MEDS: AMPICILLIN 2,000 MG in SODIUM CHLOR 0.9% AD-VAN 100 ML IV SCH ×2 (05:58→12:49)
[2021-03-03 06:12] LABS: Hematocrit (blood only) 35.7 % (37-47); Hemoglobin 11.8 g/dL (12.0-16.0); Mean Corpuscular Hemoglobin 30.2 pg (25-34); Mean Corpuscular Hgb Conc 33.1 g/dL (32-36); Mean Corpuscular Volume 91.3 fL (80-100); Mean Platelet Volume 9.2 fL (7.4-10.4); Platelet Count 283 K/uL (130-400); RDW Coefficient of Variation 14.4 % (11.5-14.5); RDW Standard Deviation 48.3 fL (36.4-46.3); Red Blood Count 3.91 M/uL (4.2-5.4); White Blood Count 5.11 K/uL (4.8-10.8)
[2021-03-03 06:48] LABS: Creatinine Clr Calc Pharmacy 68.7 ml/min; Est GFR (African American) 98.4; Est GFR (Non-African American) 84.9; Potassium 2.8 mmol/L (3.5-5.1)
[2021-03-03] MEDS: POTASSIUM CHLORIDE 10 MEQ TABCR PO SCH (08:00)
[2021-03-03] MEDS: CYANOCOBALAMIN 500 MCG TABLET (VITAMIN B-12) PO SCH (08:01)
[2021-03-03] MEDS: RALOXIFENE HCL 60 MG TAB PO SCH (08:01)
[2021-03-03] MEDS: FAMOTIDINE 20 MG in SYRINGE 3 ML IV SCH (08:02)
[2021-03-03] MEDS ORDERED: POTASSIUM CHLORIDE CRTAB 20 MEQ TABCR PO ONE (10:29)
[2021-03-03] MEDS: ENOXAPARIN INJ 40 MG/0.4 ML SYR SQ SCH (11:13)
[2021-03-03] MEDS: POTASSIUM CHLORIDE / WTR 10 MEQ/100 ML PLCT IV SCH ×2 (11:13→12:00)
[2021-03-03 15:02] LABS: BUN Creatinine Ratio 13.1 (10-20); Calcium 8.3 mg/dl (8.5-10.1); Creatinine Clr Calc Pharmacy 50.5 ml/min; Est GFR (African American) 73.4; Est GFR (Non-African American) 63.4; Potassium 3.5 mmol/L (3.5-5.1)
--- NOTE | 2021-03-03 15:41 | Hospitalist Progress Note ---
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 Complicated UTI Bacteremia-POA -Chest/Abd X ray:No acute process of the chest. Nonobstructive bowel gas patte rn. Stable positioning of the left ureteral stent. No ureteral calculi identified Bilateral nephrolithiasis. -Blood Cx: 11/25: Enterococcus -Urine culture: Enterococcus fecalis -Repeat blood cultures: Negative to date -Empirically on Rocephin>> transition to ampicillin Appreciate urology input Plan to complete 14-day course of antibiotics Needs follow up with Urology Upon discharge H/O Obstruction of Left Ureteropelvic Junction S/P Ureteral stent placement at the end of December, completed 2 week course of Keflex Discharged from ED on cefdinir (Not yet to fill) Management as above (3) Person under investigation for COVID-19: Recent exposure to family who tested positive for covid 4 days ago COVID Screen : Negative X 2 (4) Nausea: Continue PRN Zofran and Phenergan PRN (5) Hx of breast cancer: Continue raloxifene Hypokalemia Replace electrolytes as needed DVT Px: SQ Lovenox Code status: FULL CODE PCP: Admission and Anticipated Discharge Date Admission Date: February 27, 2021 Subjective Patient is seen and examined at bedside Offers no complaints Eager to get discharged No recurrence of nausea, vomiting Denies dysuria, hematuria, abdominal or flank pain, chest pain, dyspnea, dizziness Review of Systems Review of Systems: All systems reviewed & are unremarkable except as noted in HPI & below Physical Exam Physical Exam: Physical Exam: Vitals signs as noted above General Appearance:Moderately built and nourished, no apparent distress Head: normocephalic, Atraumatic Eyes: normal inspection, EOMI Neck: supple, Trachea midline Respiratory/Chest: Normal breath sounds, CTA, No accessory muscle use Cardiovascular: S1, S2, No murmur Abdomen/GI:Soft, Non tender, Bowel sounds present Extremities/Musculoskelatal:normal inspection, no edema Neurologic/Psych:AAOX3, grossly no focal neurological deficits Skin: normal color, warm Results & Data Results & [facility] ([facility]) Vital Signs (Past 12 Hours) Vital Signs Temp Pulse Resp BP Pulse Ox 03/03/21 07:27 37.0 C 71 16 155/73 H 91 Laboratory Results Short CBC 03/03/21 Range/Units 05:50 WBC 5.11 (4.8-10.8) K/uL Hgb 11.8 L (12.0-16.0) g/dL Hct 35.7 L (37-47) % Plt Count 283 (130-400) K/uL BMP 03/03/21 03/03/21 05:50 14:05 Sodium 143 140 Potassium 2.8 L 3.5 D Chloride 108 H 105 Carbon Dioxide 31 30 BUN 10 11 Creatinine 0.64 0.87 Glucose 109 H 111 H Calcium 8.0 L 8.3 L
--- NOTE | 2021-03-03 15:59 | Discharge Summary ---
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 Came in ED this morning with concern for Covid exposure with fatigue and loss of appetite. Has recent covid exposures with family but tested negative with a Cepheid panel earlier today. In ED this morning was found to have abnormal UA and prescribed Cefdinir with plans to follow up with urology later this week. Has not yet picked up medication from pharmacy. Returned to ED with worsening chills, nausea and vomiting. Was hypotensive in ED at 98/63 but improved with fluids. Grew rizzo sensitive Ecoli and Klebsiella on urine culture in November. No dysuria or hematuria. Denies cough, shortness of breath, chest pain, loss of taste or smell or abdominal pain. Chronic diarrhea which is unchanged. Admission Exam Per Admitting Provider Physical Exam Gen-AAO x 3, NAD, Afebrile Head-NCAT, EOMI, PERRLA, Anicteric Sclera, No Posterior Pharyngeal Erythema Neck-Supple, No JVD, No Thyromegaly, No Masses, No LAD, No Bruits Lungs-Clear to Auscultation Bilaterally, No Rales, No Rhonchi, No Wheezing, No Crepitus Chest-No S4, +S1, +S2, No S3, No Murmurs, No Rubs, No Gallops, No Ectopy Abdomen-Soft, Bowel Sounds Present, Non Tender, Non Distended, No Hepatomegaly, No Splenomegaly, No Palpable Masses, No Rebound, No Rigidity, No Guarding Musculoskeletal-Full Range of Motion Bilaterally, No CVAT Extremities-No Cyanosis, No Clubbing, No Edema Nuero-Cranial Nerves II-XII grossly intact, Motor WNL, DTRs WNL, Strength WNL, Non Focal Psych-Normal Mood Principal Diagnosis Urinary tract infection Enterococcal bacteremia Hypokalemia Discharge Data Allergies Allergy/AdvReac Type Severity Reaction Status Date / Time influenza virus vaccine, Allergy Severe Gillean Verified 02/27/21 16:14 specific [place]atte Syndrome Sulfa (Sulfonamide Allergy Unknown Unknown Verified 02/27/21 16:14 Antibiotics) cephalexin AdvReac Nausea Unverified 02/27/21 16:14 Consultations 02/27/21 17:09 ED Decision to Admit Stat 03/01/21 15:32 Consult Urology Routine Procedures Performed Chest/Abd X ray:No acute process of the chest. Nonobstructive bowel gas pattern. Stable positioning of the left ureteral stent. No ureteral calculi identified Bilateral nephrolithiasis. 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 Complicated UTI Bacteremia-POA -Chest/Abd X ray:No acute process of the chest. Nonobstructive bowel gas pattern. Stable positioning of the left ureteral stent. No ureteral calculi identified Bilateral nephrolithiasis. -Blood Cx: 11/25: Enterococcus -Urine culture: Enterococcus fecalis -Repeat blood cultures: Negative to date -Empirically on Rocephin>> transition to ampicillin Appreciate urology input Plan to complete 14-day course of antibiotics Needs follow up with Urology Upon discharge H/O Obstruction of Left Ureteropelvic Junction S/P Ureteral stent placement at the end of December, completed 2 week course of Keflex Discharged from ED on cefdinir (Not yet to fill) Management as above (3) Person under investigation for COVID-19: Recent exposure to family who tested positive for covid 4 days ago COVID Screen : Negative X 2 (4) Nausea: Continue PRN Zofran and Phenergan PRN (5) Hx of breast cancer: Continue raloxifene Hypokalemia Replace electrolytes as needed DVT Px: SQ Lovenox Code status: FULL CODE PCP: Total Time Total Time Spent Total Time Spent (In Minutes): 42 minutes Total Time Includes: Examination of the Patient, Discharge Planning, Medication Reconciliation, Communication With Other Providers and Other Discharge Plan Discharge Items Patient Disposition: Home - Self-Care Reason For Visit: UTI,N/V Discharge Diagnosis: Urinary tract infection Enterococcal bacteremia Hypokalemia Activity: Per Instructions section Exercise/Sports: Gradually increase as tolerated Non-emergency contact: Primary Care Provider and Urologist Call non-emergency contact if: you have any medication questions, your symptoms worsen, your pain is not controlled, your pain is concerning for you and you have a fever Follow-up/Referrals: Indu Ambrocio [Primary Care Provider] - Diet: Lactose Intolerant Ambulatory Orders: Basic Metabolic Panel (Routine) Timeframe: 1 Week Location: Determined by Patient Ordered By: Ab Hubbard Attending Provider Instructions: Follow-up with your primary care physician Dr. Ambrocio in 1 week as advised Follow-up with your urologist Dr. Joshua in 2 weeks as advised Get Blood test (Basic Metabolic Panel) in 1 week and follow up with your primary care physician for monitoring your potassium levels. Complete the antibiotic course for 11 more days as prescribed Seek immediate medical attention if your symptoms reoccur or worsen Pending Studies at Discharge: No Stand-Alone Forms: My [facility], Smoking Cessation Medications and DC Order Prescriptions: New amoxicillin 500 mg Capsule 500 mg PO TID 11 Days Qty: 33 RF: 0 famotidine [Acid [employer] Project [employer] (famotidine)] 10 mg Tablet 10 mg PO BID Qty: 10 RF: 0 Floranex 100 million cell Granules In Packet 1 g PO TIDM Qty: 30 RF: 0 ondansetron 4 mg Tablet,Disintegrating 2 mg PO Q8H PRN (Reason: nausea and vomiting) Qty: 20 RF: 0 Continued cyanocobalamin (vitamin B-12) [Vitamin B-12] 500 mcg Tablet 500 mcg PO QAM RF: 0 cholecalciferol (vitamin D3) 1,250 mcg (50,000 unit) capsule 2,500 mcg PO WK RF: 0 ferrous sulfate [iron] 325 mg (65 mg iron) Tablet 325 mg PO 3XWK RF: 0 cranberry extract [Cranberry Concentrate] 500 mg Capsule 500 mg PO QAM RF: 0 raloxifene 60 mg tablet 60 mg PO QAM RF: 0 potassium chloride 10 mEq tablet extended release 10 meq PO BID Qty: 60 RF: 0 Discontinued cefdinir 300 mg capsule 300 mg PO BID Qty: 14 RF: 0 Discharge Orders: Discharge Order (Routine); Ordered 03/03/21 Ordered By: Ab Leiva Admission Data Admit Date/Time: 02/27/21 17:52 Attending Provider: Ab Leiva Admit Provider: Justin Landis Primary Care Provider: Indu Ambrocio Other Providers: Justin Landis ; Guillermo Joshua Other Interventions: Discharge Summary Assessment (RN) Last Done: 03/03/21 15:43
[2021-03-03] MEDS ORDERED: ONDANSETRON 2 MG OD TAB PO PRN (16:40)
[2021-03-03] MEDS ORDERED: ADVANCED PROBIOTIC 1250 MG CAPSULE PO SCH (17:00)
[2021-03-03] MEDS ORDERED: AMOXICILLIN 500 MG CAP PO SCH (21:00)
[2021-03-03] MEDS ORDERED: POTASSIUM CHLORIDE CRTAB 20 MEQ TABCR PO SCH (21:00)
[2021-03-03] MEDS ORDERED: FAMOTIDINE 10 MG TABLET PO SCH (21:00)
== END 2021-03-03 17:48 | disposition home or self-care (01) | DRG 690 ==
LOC: ED 14:16 → SUATTDRO 17:52 → 2W 17:52 → 3W 03-02 16:21

== ENCOUNTER 2022-04-09 09:57 | Inpatient (IN) ==
[2022-04-09] MEDS ORDERED: ACETAMINOPHEN 1,000 MG/100 ML VIAL IV STA (10:06)
[2022-04-09] MEDS ORDERED: MoRPHine SULFATE 2 MG/ML CARP IV PRN ×2 (10:06→15:56)
[2022-04-09] MEDS ORDERED: SODIUM CHLORIDE 0.9% 1000ML 1,000 ML IV SCH (10:15)
[2022-04-09] MEDS: MoRPHine SULFATE 4 MG/ML 1 ML CARP\\VIAL IV PRN ×4 (10:41→13:52)
--- NOTE | 2022-04-09 11:34 | Emergency Department Note ---
Impression & Plan Intertrochanteric fracture of left hip, Fall from standing ED Provider Note NAME: CLAU SIMON AGE: 81 SEX: F ARRIVES VIA: Ambulance INFORMANT: Patient ED PROVIDER(S): Kevin Serrano MD CHIEF COMPLAINT: Left hip pain, fall. PLAN: Disposition: Admit MEDICAL DECISION MAKING: The patient is a pleasant 81-year-old woman who presents to the emergency department via EMS after having a mechanical fall at home when she was cleaning the house and stepped backwards onto a roll of paper towels falling onto her left hip. She denies any head strike or loss of consciousness. She reports she was unable to get up due to the pain. Prior to today she denies any fevers, chills, cough, congestion, GI or symptoms. The patient is uncomfortable no acute distress, afebrile with stable vital signs. She has tenderness of the left lateral hip with inability to move the left hip secondary to pain. Distal PMS is intact. EKG without overt acute ischemia. Chest x-ray negative for acute traumatic or cardiopulmonary process. WBC11.2K, nonspecific. H/H similar to prior range of values. Platelets within normal limits. Chemistry without metabolic acidosis. Electrolytes and LFTs without significant abnormality. Plain film of the left hip and pelvis demonstrates nondisplaced intertrochanteric hip fracture. Patient and daughter updated at the bedside. Agree with plan for admission for further management. Case was discussed with Radha John PAC with Dr. Bruner, [facility] hospitalist, who will evaluate the patient for admission and orthopedic consultation. UA subsequently did result and was suspicious for infection with 4+ bacteria albeit with epithelial cells present. Will defer treatment to admitting team. Triage Nursing notes reviewed and agree them. Prior medical records reviewed Vital Signs: reviewed and remarkable for no significant abnormalities Differential diagnosis: Fracture, subluxation, dislocation, contusion, ligamentous injury, neurovascular, compartment syndrome, rhabdomyolysis, as well as other pathologies. ER treatment provided: See below. Diagnostics interpreted by me: ECG: Normal sinus rhythm, 79 bpm, no ectopy, no overt ST elevation or dep ression, QTC 463, QRS 66. Cardiac Monitoring: An order for continuous cardiac monitoring was placed and demonstrated Normal sinus rhythm, 79 bpm, no ectopy. Laboratory studies: See below Imaging studies: See below Consultation(s): Case was discussed with Radha Faith [facility] PAC with Dr. Bruner, [facility] hospitalist, who will evaluate the patient for admission. HPI: The patient is a pleasant 81-year-old woman who presents to the emergency department via EMS after having a mechanical fall at home when she was cleaning the house and stepped backwards onto a roll of paper towels falling onto her left hip. She denies any head strike or loss of consciousness. She reports she was unable to get up due to the pain. Prior to today she denies any fevers, chills, cough, congestion, GI or symptoms. ROS: See above HPI for pertinent positives & negatives. A total of 10 systems reviewed and were otherwise negative. VITALS:See Below PHYSICAL EXAMINATION: GENERAL: Awake, alert, uncomfortable-appearing, in no distress HENT: Normocephalic, atraumatic. Oropharynx with dry mucous membranes and otherwise unremarkable. EYES: Normal conjunctiva. Sclera non-icteric. NECK: Supple. No nuchal rigidity. FROM. No JVD. RESPIRATORY: Clear to auscultation. CARDIAC: Regular rate, normal rhythm. Extremities warm and well perfused. Pulses equal. ABDOMEN: Soft, non-distended. No tenderness to palpation. No rebound or guarding. No masses. RECTAL: Deferred. MUSCULOSKELETAL: Chest examination reveals no tenderness. The back is symmetrical on inspection without obvious abnormality. There is no CVA tenderness to palpation. Tenderness of the left lateral hip with inability to move the left hip secondary to pain. Distal PMS is intact. LOWER EXTREMITIES: Calves are equal size bilaterally and non-tender. No edema. No discoloration. NEURO: Normal sensorium. No sensory or motor deficits noted. SKIN: No rash or jaundice noted. 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 Berman 09/2021 Hx of hysterectomy Hx of lumpectomy Right breast Family History Mother Macular degeneration Father Kidney stone Diabetes Social History Smoking Status: Smoker, status unknown Second Hand Exposure: No; Hx Alcohol Use: No Hx Substance Use: No Preferred Language: Bermudian Communication Ability: Effective Visual Impairment: No Limitations [employer] Cook Required: No Beliefs That Will Affect Care: None marital status: / Current Living Situation: Spouse Current Living Situation Comment: lives at home independently Feels Safe at Home: Yes Safety Concerns: Feels Safe At This Time Assistive Devices: Glasses and Hearing Aid - Bilateral Allergies Allergies Allergy/AdvReac Type Severity Reaction Status Date / Time influenza virus vaccine, Allergy Severe Gillean Verified 04/09/22 12:40 specific Newfield Syndrome Sulfa (Sulfonamide Allergy Unknown Unknown Verified 04/09/22 12:40 Antibiotics) cephalexin AdvReac Nausea Verified 04/09/22 12:40 Home Meds Home Medications Medication Instructions Recorded Confirmed ferrous sulfate 325 mg (65 mg 325 mg PO 3XWK 07/17/18 04/09/22 iron) tablet (iron) raloxifene 60 mg tablet 60 mg PO QAM 01/20/20 04/09/22 cyanocobalamin (vitamin B-12) 500 500 mcg PO QAM 12/20/20 04/09/22 mcg tablet (Vitamin B-12) cranberry extract 500 mg capsule 500 mg PO QAM cap 05/08/21 04/09/22 (Cranberry Concentrate) cholecalciferol (vitamin D3) 1,250 100,000 unit PO .QSUN 04/09/22 04/09/22 mcg (50,000 unit) capsule diclofenac sodium 1 % topical gel 2 g TOPICAL QID PRN 04/09/22 04/09/22 miconazole nitrate 2 % topical 1 applic TOPICAL BID 04/09/22 04/09/22 cream potassium chloride 10 mEq 20 meq PO BID 04/09/22 04/09/22 tablet,extended release Results & Data (ED) Vital Signs Vital Signs - 24 hr 04/09/22 10:15 04/09/22 10:47 04/09/22 12:08 Temperature 36.8 C Temperature Source Oral Pulse Rate 71 Pulse Rate [Finger] 86 81 Respiratory Rate 18 16 21 Respiratory Depth Normal Blood Pressure 116/85 Blood Pressure [Left Arm] 124/82 107/64 Blood Pressure Mean 95 Blood Pressure Mean [Left Arm] 96 78 Pulse Oximetry 95 91 98 Oxygen Delivery Method Room Air Room Air Sepsis Recent Fever Within 48 Hours No Sepsis New/Unexplained Change in Mental Status No Sepsis Action Taken by Nursing No Action Required Laboratory Data Attestation: I reviewed the patient's lab results. Result diagrams: 04/09/22 11:23 04/09/22 11:23 Lab Results 04/09/22 04/09/22 04/09/22 Range/Units 10:10 11:23 11:23 WBC 11.29 H (4.8-10.8) K/uL RBC 4.01 L (4.2-5.4) M/uL Hgb 11.8 L (12.0-16.0) g/dL Hct 37.1 (37-47) % MCV 92.5 (80-100) fL MCH 29.4 (25-34) pg MCHC 31.8 L (32-36) g/dL RDW Std Deviation 48.2 H (36.4-46.3) fL RDW Coeff of Addie 14.2 (11.5-14.5) % Plt Count 294 (130-400) K/uL MPV 9.6 (7.4-10.4) fL Immature Gran % (Auto) 0.5 % Neut % (Auto) 87.4 % Lymph % (Auto) 5.0 % Hudson % (Auto) 6.7 % Eos % (Auto) 0.2 % Baso % (Auto) 0.2 % Neut # (Auto) 9.87 H (1.4-6.5) K/uL Lymph # (Auto) 0.56 L (1.2-3.4) K/uL Hudson # (Auto) 0.76 H (0.11-0.59) K/uL Eos # (Auto) 0.02 (0-0.5) K/uL Baso # (Auto) 0.02 (0-0.2) K/uL Immature Gran # (Auto) 0.06 H (0.00-0.02) K/uL PT 10.3 (9.0-12.0) Seconds INR 1.0 (0.9-1.1) APTT 24.1 (21.0-31.0) Seconds PTT Ratio 0.9 Sodium (136-145) mmol/L Potassium (3.5-5.1) mmol/L Chloride (98-107) mmol/L Carbon Dioxide (21-32) mmol/L Anion Gap (3-11) BUN (6-23) mg/dl Creatinine (0.6-1.2) mg/dl Est Cr Clr Drug Dosing ml/min Est GFR ( Amer) ml/min Est GFR (Non-Af Amer) ml/min BUN/Creatinine Ratio (10-20) Glucose (70-99(Fasting)) mg/dl Calcium (8.5-10.1) mg/dl Total Bilirubin (0.2-1.0) mg/dl AST (13-39) U/L ALT (7-52) U/L Alkaline Phosphatase (34-104) U/L Total Protein (6.0-8.3) gm/dl Albumin (3.4-5.0) gm/dl Globulin (2.5-4.0) gm/dl Albumin/Globulin Ratio (0.9-2) SARS-CoV-2, RNA, NAAT NEGATIVE (NEGATIVE) 04/09/22 Range/Units 11:23 WBC (4.8-10.8) K/uL RBC (4.2-5.4) M/uL Hgb (12.0-16.0) g/dL Hct (37-47) % MCV (80-100) fL MCH (25-34) pg MCHC (32-36) g/dL RDW Std Deviation (36.4-46.3) fL RDW Coeff of Addie (11.5-14.5) % Plt Count (130-400) K/uL MPV (7.4-10.4) fL Immature Gran % (Auto) % Neut % (Auto) % Lymph % (Auto) % Hudson % (Auto) % Eos % (Auto) % Baso % (Auto) % Neut # (Auto) (1.4-6.5) K/uL Lymph # (Auto) (1.2-3.4) K/uL Hudson # (Auto) (0.11-0.59) K/uL Eos # (Auto) (0-0.5) K/uL Baso # (Auto) (0-0.2) K/uL Immature Gran # (Auto) (0.00-0.02) K/uL PT (9.0-12.0) Seconds INR (0.9-1.1) APTT (21.0-31.0) Seconds PTT Ratio Sodium 139 (136-145) mmol/L Potassium 3.9 (3.5-5.1) mmol/L Chloride 107 (98-107) mmol/L Carbon Dioxide 23 (21-32) mmol/L Anion Gap 9 (3-11) BUN 22 (6-23) mg/dl Creatinine 0.83 (0.6-1.2) mg/dl Est Cr Clr Drug Dosing 53.5 ml/min Est GFR ( Amer) 77.2 ml/min Est GFR (Non-Af Amer) 66.6 ml/min BUN/Creatinine Ratio 26.5 H (10-20) Glucose 115 H (70-99(Fasting)) mg/dl Calcium 8.2 L (8.5-10.1) mg/dl Total Bilirubin 0.3 (0.2-1.0) mg/dl AST 13 (13-39) U/L ALT 10 (7-52) U/L Alkaline Phosphatase 99 (34-104) U/L Total Protein 6.8 (6.0-8.3) gm/dl Albumin 3.6 (3.4-5.0) gm/dl Globulin 3.2 (2.5-4.0) gm/dl Albumin/Globulin Ratio 1.1 (0.9-2) SARS-CoV-2, RNA, NAAT (NEGATIVE) Administered Medications Sodium Chloride (Nss 1000ml) 1,000 mls @ 80 mls/hr IV .[id number] MEGAN Stop: 05/09/22 15:55 Last Admin: 04/09/22 16:42 Dose: 80 mls/hr Documented by: [id number] Morphine Sulfate (Morphine Sulfate 2 Mg/Ml Carp) 2 mg IV Q3H PRN PRN Reason: Pain (6,7,8,9,10) Stop: 04/23/22 16:07 Last Admin: 04/09/22 16:42 Dose: 2 mg Documented by: [id number] Discontinued Medications Sodium Chloride (Nss 1000ml) 1,000 mls @ 75 mls/hr IV .[id number] MEGAN Stop: 04/09/22 23:34 Last Admin: 04/09/22 11:01 Dose: 75 mls/hr Documented by: [id number] Acetaminophen (Ofirmev) 1,000 mg in 100 mls @ 400 mls/hr IV NOW STA Stop: 04/09/22 10:20 Last Infusion: 04/09/22 11:01 Dose: 0 mls/hr Documented by: [id number] Admin: 04/09/22 10:41 Dose: 400 mls/hr Documented by: [id number] Ceftriaxone Sodium (Rocephin) 1,000 mg in 50 mls @ 100 mls/hr IV NOW STA; Protocol Stop: 04/09/22 13:56 Last Infusion: 04/09/22 14:29 Dose: 0 mls/hr Documented by: [id number] Admin: 04/09/22 13:55 Dose: 100 mls/hr Documented by: [id number] Morphine Sulfate (Morphine Sulfate 4 Mg/Ml 1 Ml Carp\Vial) 2 mg IV Q2H PRN PRN Reason: Severe Pain (Rating 7,8,9,10) Stop: 04/23/22 10:05 Last Admin: 04/09/22 13:52 Dose: 2 mg Documented by: [id number] Admin: 04/09/22 12:07 Dose: 2 mg Documented by: [id number] Admin: 04/09/22 11:01 Dose: 2 mg Documented by: [id number] Admin: 04/09/22 10:41 Dose: 2 mg Documented by: [id number] Imaging Data Radiologist's Impression: Hip/Pelvis X-Ray 04/09/22 10:07 SINGLE VIEW PELVIS; 2 VIEWS LEFT HIP CLINICAL HISTORY: Fall. FINDINGS: An AP view of the pelvis with AP and crosstable lateral views of the left hip are compared to study dated 07/03/2017. The skeletal structures are osteopenic. There is an acute nondisplaced intertrochanteric fracture of the left proximal femur with overlying soft tissue edema. No additional acute fracture is seen involving the right hip or the visualized bony pelvis. There is chronic posttraumatic deformity of the right proximal femur with intertrochanteric and intramedullary nails in place. Mild arthritic change and joint space narrowing is seen in both hips. The sacroiliac joints are normal. IMPRESSION: Acute intertrochanteric fracture of the left proximal femur as above. Electronically signed by: Ron Morin M.D. 04/09/2022 11:41 AM Chest X-Ray 04/09/22 11:18 XR chest 1V portable CLINICAL HISTORY: Fall. COMPARISON STUDY: Chest radiograph February 27, 2021. FINDINGS: Right breast calcifications are incidentally noted. Cardiomediastinal silhouette is stable. There is no pneumothorax or pleural effusion. Mild elevation of the left hemidiaphragm is unchanged. There is no evidence for pulmonary edema. No consolidation to suggest pneumonia. There is an old right seventh rib fracture. IMPRESSION: No acute cardiopulmonary findings. ACT 112: Negative or not required by law. Electronically signed by: Redd Salcido M.D. 04/09/2022 11:38 AM Discharge Plan Visit Data Chief Complaint: Hip Pain Stated Complaint: FALL, LEG/HIP PAIN ED Provider: Kevin Serrano Discharge Problem: Intertrochanteric fracture of left hip, Fall from standing Discharge Instructions Interventions: ED Discharge Assessment Last Done: 04/09/22 15:47 Discharge Problem: Intertrochanteric fracture of left hip Qualifiers: Encounter type: initial encounter Fracture type: closed Fracture alignment: nondisplaced Qualified Code(s): S72.145A - Nondisplaced intertrochanteric fracture of left femur, initial encounter for closed fracture Fall from standing Qualifiers: Encounter type: initial encounter Qualified Code(s): W19.XXXA - Unspecified fall, initial encounter
--- NOTE | 2022-04-09 11:39 | XRay Report ---
XR chest 1V portable CLINICAL HISTORY: Fall. COMPARISON STUDY: Chest radiograph February 27, 2021. FINDINGS: Right breast calcifications are incidentally noted. Cardiomediastinal silhouette is stable. There is no pneumothorax or pleural effusion. Mild elevation of the left hemidiaphragm is unchanged. There is no evidence for pulmonary edema. No consolidation to suggest pneumonia. There is an old rig ht seventh rib fracture. IMPRESSION: No acute cardiopulmonary findings. ACT 112: Negative or not required by law. Electronically signed by: Redd Salcido M.D. 04/09/2022 11:38 AM
--- NOTE | 2022-04-09 11:43 | XRay Report ---
SINGLE VIEW PELVIS; 2 VIEWS LEFT HIP CLINICAL HISTORY: Fall. FINDINGS: An AP view of the pelvis with AP and crosstable lateral views of the left hip are compared to study dated 07/03/2017. The skeletal structures are osteopenic. There is an acute nondisplaced inte rtrochanteric fracture of the left proximal femur with overlying soft tissue edema. No additional acu te fracture is seen involving the right hip or the visualized bony pelvis. There is chronic posttraum atic deformity of the right proximal femur with intertrochanteric and intramedullary nails in place. Mild arthritic change and joint space narrowing is seen in both hips. The sacroiliac joints are david l. IMPRESSION: Acute intertrochanteric fracture of the left proximal femur as above. Electronically signed by: Ron Morin M.D. 04/09/2022 11:41 AM
[2022-04-09 11:46] LABS: Basophils # (auto) 0.02 K/uL (0-0.2); Basophils % (auto) 0.2 %; Eosinophils # (auto) 0.02 K/uL (0-0.5); Eosinophils % (auto) 0.2 %; Hematocrit (blood only) 37.1 % (37-47); Hemoglobin 11.8 g/dL (12.0-16.0); Immature Granulocytes # (auto) 0.06 K/uL (0.00-0.02); Immature Granulocytes % (auto) 0.5 %; Lymphocytes # (auto) 0.56 K/uL (1.2-3.4); Mean Corpuscular Hemoglobin 29.4 pg (25-34); Mean Corpuscular Hgb Conc 31.8 g/dL (32-36); Mean Corpuscular Volume 92.5 fL (80-100); Mean Platelet Volume 9.6 fL (7.4-10.4); Monocytes # (auto) 0.76 K/uL (0.11-0.59); Monocytes % (auto) 6.7 %; Neutrophils # (auto) 9.87 K/uL (1.4-6.5); Neutrophils % (auto) 87.4 %; Platelet Count 294 K/uL (130-400); RDW Coefficient of Variation 14.2 % (11.5-14.5); RDW Standard Deviation 48.2 fL (36.4-46.3); Red Blood Count 4.01 M/uL (4.2-5.4); White Blood Count 11.29 K/uL (4.8-10.8)
[2022-04-09 11:51] LABS: Partial Thromboplastin Ratio 0.9; Partial Thromboplastin Time 24.1 Seconds (21.0-31.0); Prothrombin Time 10.3 Seconds (9.0-12.0)
[2022-04-09 12:07] LABS: Appearance Urine Cloudy (Clear); Bacteria Urine Automated 4+ (Negative); Bilirubin Urine Negative (Negative); Blood Urine Trace (Negative); Color Urine Yellow; Glucose Urine UA Negative (Negative); Ketones Urine Negative (Negative); Leukocyte Esterase Urine 2+ (Negative); Nitrite Urine Positive (Negative); Protein Urine Trace (Negative); Specific Gravity Urine 1.018 (1.000-1.030); Urobilinogen Urine Negative (Negative); WBC Urine Automated >30 /hpf (0-5)
[2022-04-09 12:12] LABS: Albumin Globulin Ratio 1.1 (0.9-2); Albumin Level 3.6 gm/dl (3.4-5.0); BUN Creatinine Ratio 26.5 (10-20); Bilirubin,Total 0.3 mg/dl (0.2-1.0); Calcium 8.2 mg/dl (8.5-10.1); Creatinine Clr Calc Pharmacy 53.5 ml/min; Est GFR (African American) 77.2 ml/min; Est GFR (Non-African American) 66.6 ml/min; Globulin 3.2 gm/dl (2.5-4.0); Potassium 3.9 mmol/L (3.5-5.1); Total Protein 6.8 gm/dl (6.0-8.3)
[2022-04-09 12:21] LABS: RBC Urine Automated 0-4 /hpf (0-4)
[2022-04-09] MEDS ORDERED: cefTRIAXone SODIUM 1,000 MG/50 ML BAG IV STA (13:27)
--- NOTE | 2022-04-09 13:33 | History & Physical Report ---
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 Fall Intertrochanteric fx of L hip admit to med/surg consult orthopedics Last ate @ 700 today, toast and coffee keep NPO until eval by ortho SCDs Tylenol for mild pain, prn Oxy IR or morphine for severe pain bed rest, chaves placement ekg/cxr reviewed - medically cleared for surgical intervention consult anesthesia gentle IVF Abnormal urinalysis pt asymptomatic, afebrile, wbc minimally elevated hx of ecoli and enterococcus in past hx of complicated uti involving ureteral stone in past tx with IV rocephin empirically await urine culture Hx of breast ca 20 years ago s/p lumpectomy and xrt on raloxifene Anemia hgb 11.8, appears at baseline and chronic monitor on irons upplement as OP DVT ppx: SCDS for now, administer chemical prophylaxis post operatively given immobilization and pt on raloxifene Dispo: med/surg, pt lives alone and is very active at baseline, will need PT/OT post op FULL CODE PCP: Lolly Pt was seen and examined in collaboration with Dr. Bruner, please see addendum History of Present Illness Chief Complaint: Mechanical fall prior to arrival. 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 Patient states she was cleaning her bedroom whenever she stepped backwards and tripped over a paper towel landing on her left side. She knew instantly something was wrong. She was able to crawl to her phone where she called her daughter who urged her to call EMS. She does live alone but has live supportive family. Her mother is still living at the age of 98-year-old home. She is otherwise a healthy and active 81-year-old. 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 She denies any recent illness, f/c/s, chest pain, sob, cough, uri sx, n/v/d, abd pain, dysuria, increased urg/freq urination, hematuria, melena or hematochezia. She is very active and denies any CP or SOB when climbing 1 flight of steps. Hx of L knee replacement this past September by Dr. Berman in [place]. Also hx of R hip fx and surgical correction many years ago by Dr. Fox with [facility]. In ED pt remained hemodynamically stable. She was mildly hypotensive during my eval 2/2 morphine administration. She does have L hip pain with movement, but denies any numbness or tingling. UA + for UTI. Allergies Allergy/AdvReac Type Severity Reaction Status Date / Time influenza virus vaccine, Allergy Severe Gillean Verified 04/09/22 12:40 specific [place] Syndrome Sulfa (Sulfonamide Allergy Unknown Unknown Verified 04/09/22 12:40 Antibiotics) cephalexin AdvReac Nausea Verified 04/09/22 12:40 Home Medications Medication Instructions Recorded Confirmed Type ferrous sulfate 325 mg (65 mg 325 mg PO 3XWK 07/17/18 04/09/22 History iron) tablet (iron) raloxifene 60 mg tablet 60 mg PO QAM 01/20/20 04/09/22 History cyanocobalamin (vitamin B-12) 500 500 mcg PO QAM 12/20/20 04/09/22 History mcg tablet (Vitamin B-12) cranberry extract 500 mg capsule 500 mg PO QAM cap 05/08/21 04/09/22 History (Cranberry Concentrate) cholecalciferol (vitamin D3) 1,250 100,000 unit PO .QSUN 04/09/22 04/09/22 History mcg (50,000 unit) capsule diclofenac sodium 1 % topical gel 2 g TOPICAL QID PRN 04/09/22 04/09/22 History miconazole nitrate 2 % topical 1 applic TOPICAL BID 04/09/22 04/09/22 History cream potassium chloride 10 mEq 20 meq PO BID 04/09/22 04/09/22 History tablet,extended release Past Med/Surg History Medical History (Updated 04/09/22 @ 13:27 by Radha Faith PA-C) Anemia chronic 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 Hx of breast cancer right breast (2000) s/p radiation 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 LE neuropathy Kidney stones Osteoarthritis Rectal abscess Seizure x1 episode s/p benign brain tumor excision (1998) Surgical History (Updated 04/09/22 @ 13:27 by Radha Faith PA-C) History of appendectomy History of brain surgery 1998; benign tumor excision History of colonoscopy History of cystoscopy multiple cystoscopy, right ureteronephroscopy, laser litho: 02/15/20: LMA#5 at [facility] cystoscopy, left stent placement: 12/21/20: MAC sedation at [facility] History of hip surgery right intertrochanteric femoral nailing History of tooth extraction History of total knee replacement Right & Left, L done by Dr. Berman 09/2021 Hx of hysterectomy Hx of lumpectomy Right breast Family History Mother Macular degeneration Father Kidney stone Diabetes Social History Smoking Status: Never smoker Second Hand Exposure: No; Hx Alcohol Use: No Hx Substance Use: No Preferred Language: Persian Communication Ability: Effective Visual Impairment: No Limitations Law Office Receptionist Required: No Beliefs That Will Affect Care: None marital status: / Current Living Situation: Spouse Feels Safe at Home: Yes Assistive Devices: Denture - Upper, Denture - Lower and Hearing Aid - Bilateral Review of Systems Review of Systems: All systems reviewed & are unremarkable except as noted in HPI & below Physical Exam Physical Exam: Constitutional: WD/WN, vitals as above, NAD, sitting up in bed, pleasant, conversing easily Head: Normocephalic, Atraumatic Eyes: PERRL, conjunctivae normal, anicteric sclerae ENMT: external ear and nose normal, oropharynx normal Neck: trachea midline, no thyromegaly normal visual inspection Respiratory: normal respiratory effort, lungs clear to auscultation, no wheeze, rales, rhonchi. Normal insp/exp effort, no accessory muscle use Cardiovascular: RRR, no murmur, no edema Vessels: no JVD or carotid bruit Chest: normal inspection of chest Abdomen: normal bowel sounds, soft, nontender, no hepatosplenomegaly Musculoskeletal: no cyanosis or clubbing, AROM x 3, lle not tested, NVI distally, + inversion, no shortening, no ecchymosis Skin: no rashes, warm and dry normal turgor Neurologic: PERRL, EOMI, accommodation nl, no face palsy, no dysarthria CN's II-XI intact bilaterally and moves all extremities Psychiatric: A+Ox3, euthymic affect Lymphatic: no cervical or axillary lymphadenopathy : deferred Results & Data Results & Data ([facility]) Vital Signs (Past 12 Hours) Vital Signs Temp Pulse Pulse Resp BP BP Pulse Ox 04/09/22 12:08 81 21 107/64 98 04/09/22 10:47 86 16 124/82 91 04/09/22 10:15 36.8 C 71 18 116/85 95 Diagnostic Findings Hip/Pelvis X-Ray 04/09/22 10:07 SINGLE VIEW PELVIS; 2 VIEWS LEFT HIP CLINICAL HISTORY: Fall. FINDINGS: An AP view of the pelvis with AP and crosstable lateral views of the left hip are compared to study dated 07/03/2017. The skeletal structures are osteopenic. There is an acute nondisplaced intertrochanteric fracture of the left proximal femur with overlying soft tissue edema. No additional acute fracture is seen involving the right hip or the visualized bony pelvis. There is chronic posttraumatic deformity of the right proximal femur with intertrochanteric and intramedullary nails in place. Mild arthritic change and joint space narrowing is seen in both hips. The sacroiliac joints are normal. IMPRESSION: Acute intertrochanteric fracture of the left proximal femur as above. Electronically signed by: Ron Morin M.D. 04/09/2022 11:41 AM Chest X-Ray 04/09/22 11:18 XR chest 1V portable CLINICAL HISTORY: Fall. COMPARISON STUDY: Chest radiograph February 27, 2021. FINDINGS: Right breast calcifications are incidentally noted. Cardiomediastinal silhouette is stable. There is no pneumothorax or pleural effusion. Mild elevation of the left hemidiaphragm is unchanged. There is no evidence for pulmonary edema. No consolidation to suggest pneumonia. There is an old right seventh rib fracture. IMPRESSION: No acute cardiopulmonary findings. ACT 112: Negative or not required by law. Electronically signed by: Redd Salcido M.D. 04/09/2022 11:38 AM Medications Administered Medication List Sodium Chloride (Nss 1000ml) 1,000 mls @ 75 mls/hr IV .[id number] MEGAN Stop: 04/09/22 23:34 Last Admin: 04/09/22 11:01 Dose: 75 mls/hr Documented by: [id number] Morphine Sulfate (Morphine Sulfate 4 Mg/Ml 1 Ml Carp\Vial) 2 mg IV Q2H PRN PRN Reason: Severe Pain (Rating 7,8,9,10) Stop: 04/23/22 10:05 Last Admin: 04/09/22 12:07 Dose: 2 mg Documented by: [id number] Admin: 04/09/22 11:01 Dose: 2 mg Documented by: [id number] Admin: 04/09/22 10:41 Dose: 2 mg Documented by: [id number] Discontinued Medications Acetaminophen (Ofirmev) 1,000 mg in 100 mls @ 400 mls/hr IV NOW STA Stop: 04/09/22 10:20 Last Infusion: 04/09/22 11:01 Dose: 0 mls/hr Documented by: [id number] Admin: 04/09/22 10:41 Dose: 400 mls/hr Documented by: [id number] ECG Rate (beats per minute): 79 Rhythm: normal sinus COVID-19 Results Results COVID-19 Adm Lab Results: RBC 4.01 M/uL (4.2-5.4) L 04/09/22 WBC 11.29 K/uL (4.8-10.8) H 04/09/22 Hgb 11.8 g/dL (12.0-16.0) L 04/09/22 Hct 37.1 % (37-47) 04/09/22 Plt Count 294 K/uL (130-400) 04/09/22 Neutrophils (%) (Auto) 87.4 % 04/09/22 Lymphocytes (%) (Auto) 5.0 % 04/09/22 Monocytes # (Auto) 0.76 K/uL (0.11-0.59) H 04/09/22 Eosinophils # (Auto) 0.02 K/uL (0-0.5) 04/09/22 Immature Granulocyte % (Auto) 0.5 % 04/09/22 Neutrophils # (Auto) 9.87 K/uL (1.4-6.5) H 04/09/22 Lymphocytes # (Auto) 0.56 K/uL (1.2-3.4) L 04/09/22 Monocytes # (Auto) 0.76 K/uL (0.11-0.59) H 04/09/22 Eosinophils # (Auto) 0.02 K/uL (0-0.5) 04/09/22 Basophils # (Auto) 0.02 K/uL (0-0.2) 04/09/22 Immature Granulocyte # (Auto) 0.06 K/uL (0.00-0.02) H 04/09/22 Na 139 mmol/L (136-145) 04/09/22 K 3.9 mmol/L (3.5-5.1) 04/09/22 Cl 107 mmol/L (98-107) 04/09/22 CO2 23 mmol/L (21-32) 04/09/22 Anion Gap 9 (3-11) 04/09/22 BUN 22 mg/dl (6-23) 04/09/22 Creatinine 0.83 mg/dl (0.6-1.2) 04/09/22 BUN/Creatinine Ratio 26.5 (10-20) H 04/09/22 Glucose Level 115 mg/dl (70-99(Fasting)) H 04/09/22 Ca 8.2 mg/dl (8.5-10.1) L 04/09/22 Total Bilirubin 0.3 mg/dl (0.2-1.0) 04/09/22 AST/SGOT 13 U/L (13-39) 04/09/22 ALT/SGPT 10 U/L (7-52) 04/09/22 Alkaline Phosphatase 99 U/L (34-104) 04/09/22 Total Protein 6.8 gm/dl (6.0-8.3) 04/09/22 Albumin 3.6 gm/dl (3.4-5.0) 04/09/22 Globulin 3.2 gm/dl (2.5-4.0) 04/09/22 Albumin/Globulin Ratio 1.1 (0.9-2) 04/09/22 PTT 24.1 Seconds (21.0-31.0) 04/09/22 INR 1.0 (0.9-1.1) 04/09/22 SARS-CoV-2, RNA, NAAT NEGATIVE (NEGATIVE) 04/09/22 Chest X-Ray 04/09/22 Code Status & VTE Plan Code Status FULL CODE VTE Prophylaxis Plan VTE Prophylaxis will be ordered: Yes Supervising Physician Co-Signing Physician Notes Patient seen and examined independently at bedside. Reviewed chart. Case discussed with Radha ESTRADA and agree with her documentation above. In summary, this is a 81 year old fairly active female who presented to the ED today with mechanical fall at home around 8 am sustaining left hip fracture as seen in xray. Complaining of discomfort during my encounter as she normally does not lie on her back but her side; gets pain with any movement and she is asking if the surgery will be done today. No other issues. Afebrile, hemodynamically stable, AAOx3, chest clear, heart sounds normal, abdomen benign, no edema or ecchymoses noted. Will admit for hip fracture management. Consult ortho for surgical correction. pain management, bowel regimen, bed rest, DVT prophylaxis until then. She is medically optimized to go for surgery any time. Will keep npo for now in case she goes to OR today. If no OR today, she can eat and will have npo overnight and start sc heparin with last dose being around midnight. Will need PT/OT eval after surgery and likely rehab. Will continue empiric rocephin for possible UTI as per abnormal UA. Rest as per note above.
--- NOTE | 2022-04-09 15:14 | Electrocardiogram Report ---
Test Reason : Blood Pressure : / mmHG Vent. Rate : 079 BPM Atrial Rate : 079 BPM P-R Int : 162 ms QRS Dur : 066 ms QT Int : 404 ms P-R-T Axes : 090 000 060 degrees QTc Int : 463 ms Poor data quality, interpretation may be adversely affected Normal sinus rhythm Low voltage QRS Borderline ECG When compared with ECG of 27-FEB-2021 15:38, No significant change was found Confirmed by Markie Fernandez ([id number]) on 04/09/2022 3:14:05 PM Referred By: REFERRED SELF Confirmed By:Dm Fernandez
--- NOTE | 2022-04-09 15:42 | Anesthesiology Consultation ---
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 initiated History Height/Weight Height: 5 ft 3 in Weight: 78.2 kg Allergies Allergy/AdvReac Type Severity Reaction Status Date / Time influenza virus vaccine, Allergy Severe Gillean Verified 04/09/22 12:40 specific [place] Syndrome Sulfa (Sulfonamide Allergy Unknown Unknown Verified 04/09/22 12:40 Antibiotics) cephalexin AdvReac Nausea Verified 04/09/22 12:40 Medications Home Medications Medication Instructions Recorded Confirmed Last Taken ferrous sulfate 325 mg (65 mg 325 mg PO 3XWK 07/17/18 04/09/22 03/21/21 08:00 iron) tablet (iron) raloxifene 60 mg tablet 60 mg PO QAM 01/20/20 04/09/22 03/21/21 08:00 cyanocobalamin (vitamin B-12) 500 500 mcg PO QAM 12/20/20 04/09/22 03/21/21 08:00 mcg tablet (Vitamin B-12) cranberry extract 500 mg capsule 500 mg PO QAM cap 05/08/21 04/09/22 Unknown (Cranberry Concentrate) cholecalciferol (vitamin D3) 1,250 100,000 unit PO .QSUN 04/09/22 04/09/22 Unknown mcg (50,000 unit) capsule diclofenac sodium 1 % topical gel 2 g TOPICAL QID PRN 04/09/22 04/09/22 Unknown miconazole nitrate 2 % topical 1 applic TOPICAL BID 04/09/22 04/09/22 Unknown cream potassium chloride 10 mEq 20 meq PO BID 04/09/22 04/09/22 Unknown tablet,extended release Active Medications Generic Name Dose Route Start Last Admin Trade Name Freq PRN Reason Stop Dose Admin Sodium Chloride 1,000 mls @ 75 mls/hr 04/09/22 10:15 04/09/22 11:01 Nss 1000ml IV 04/09/22 23:34 75 mls/hr .[id number] MEGAN Administration Morphine Sulfate 2 mg 04/09/22 10:06 04/09/22 13:52 Morphine Sulfate 4 Mg/Ml 1 Ml Carp\Vial IV 04/23/22 10:05 2 mg Q2H PRN Administration Severe Pain (Rating 7,8,9,10) Past Medical History Medical History Anemia chronic 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 Hx of breast cancer right breast (2000) s/p radiation 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 LE neuropathy Kidney stones Osteoarthritis Rectal abscess Seizure x1 episode s/p benign brain tumor excision (1998) Past Family History Family History Mother Macular degeneration Father Kidney stone Diabetes Past Surgical History Surgical History History of appendectomy History of brain surgery 1998; benign tumor excision History of colonoscopy History of cystoscopy multiple cystoscopy, right ureteronephroscopy, laser litho: 02/15/20: LMA#5 at [facility] cystoscopy, left stent placement: 12/21/20: MAC sedation at [facility] History of hip surgery right intertrochanteric femoral nailing History of tooth extraction History of total knee replacement Right & Left, L done by Dr. Berman 09/2021 Hx of hysterectomy Hx of lumpectomy Right breast Social History Smoking Status: Never smoker Hx Alcohol Use: No Hx Substance Use: No substance use type: does not use Physical Exam Vital Signs Last Vital Signs Temp 98.2 F 04/09/22 10:15 Pulse 65 04/09/22 15:17 Resp 16 04/09/22 15:17 BP 102/60 04/09/22 15:17 Pulse Ox 98 04/09/22 15:17 Testing Laboratory Results 04/09/22 11:23 04/09/22 11:23 PT 10.3 Seconds (9.0-12.0) 04/09/22 11:23 INR 1.0 (0.9-1.1) 04/09/22 11:23 APTT 24.1 Seconds (21.0-31.0) 04/09/22 11:23 Urine Color Yellow 04/09/22 Unknown Urine Appearance Cloudy (Clear) A 04/09/22 Unknown Urine pH 5.0 (4.5-7.5) 04/09/22 Unknown Ur Specific [place] 1.018 (1.000-1.030) 04/09/22 Unknown Urine Protein Trace (Negative) H 04/09/22 Unknown Urine Glucose (UA) Negative (Negative) 04/09/22 Unknown Urine Ketones Negative (Negative) 04/09/22 Unknown Urine Nitrite Positive (Negative) A 04/09/22 Unknown Ur Leukocyte Esterase 2+ (Negative) H 04/09/22 Unknown Urine WBC (Auto) >30 /hpf (0-5) H 04/09/22 Unknown Urine RBC (Auto) 0-4 /hpf (0-4) 04/09/22 Unknown U Hyaline Cast (Auto) 10-30 /lpf (0-5) H 04/09/22 Unknown U Epithel Cells (Auto) 10-20 /lpf (0-5) H 04/09/22 Unknown Urine Bacteria (Auto) 4+ (Negative) H 04/09/22 Unknown Laboratory Tests 04/09/22 10:10 SARS-CoV-2, RNA, NAAT NEGATIVE Electrocardiogram Date: 04/09/22 Poor data quality, interpretation may be adversely affected Normal sinus rhythm Low voltage QRS Borderline ECG When compared with ECG of 27-FEB-2021 15:38, No significant change was found Confirmed by Markie Fernandez ([id number]) on 04/09/2022 3:14:05 PM Chest X-Ray Date: 04/09/22 Findings: + NAD
[2022-04-09] MEDS ORDERED: POLYETHYLENE (MIRALAX) 17 GM PACK PO PRN (15:56)
[2022-04-09] MEDS ORDERED: MAGNESIUM HYDROXIDE SUSP 30 ML UDC PO PRN (15:56)
[2022-04-09] MEDS ORDERED: NALOXONE HCL 0.4 MG/1 ML VIAL/CARP IV PRN (15:56)
[2022-04-09] MEDS ORDERED: oxyCODONE HCL IR 5 MG TAB (IMMEDIATE RELEASE) PO PRN ×2 (15:56)
[2022-04-09] MEDS ORDERED: ONDANSETRON INJ 2 MG/ML 2 ML VIAL IV PRN (15:56)
[2022-04-09] MEDS ORDERED: ALUMINUM/MAGNESIUM SUSP 30 ML UDC PO PRN (15:56)
[2022-04-09] MEDS ORDERED: ACETAMINOPHEN 325 MG TAB PO PRN (15:56)
[2022-04-09] MEDS ORDERED: bisacodyL 10 MG SUPP PR PRN (15:56)
[2022-04-09] MEDS: SODIUM CHLORIDE 0.9% 1000ML 1,000 ML IV SCH ×2 (16:42→21:36)
[2022-04-09] MEDS: MoRPHine SULFATE 2 MG/ML CARP IV PRN ×2 (16:42→19:29)
[2022-04-09] MEDS: DOCUSATE SODIUM/SENNA 50/8.6MG TAB PO SCH (21:39)
[2022-04-09] MEDS: POTASSIUM CHLORIDE CRTAB 20 MEQ TABCR PO SCH (21:45)
[2022-04-10] MEDS: MoRPHine SULFATE 2 MG/ML CARP IV PRN ×2 (06:12→09:20)
[2022-04-10 06:42] LABS: Basophils # (auto) 0.04 K/uL (0-0.2); Basophils % (auto) 0.7 %; Eosinophils # (auto) 0.04 K/uL (0-0.5); Eosinophils % (auto) 0.7 %; Hematocrit (blood only) 34.2 % (37-47); Hemoglobin 10.9 g/dL (12.0-16.0); Immature Granulocytes # (auto) 0.01 K/uL (0.00-0.02); Immature Granulocytes % (auto) 0.2 %; Lymphocytes # (auto) 0.69 K/uL (1.2-3.4); Lymphocytes % (auto) 12.9 %; Mean Corpuscular Hemoglobin 30.3 pg (25-34); Mean Corpuscular Hgb Conc 31.9 g/dL (32-36); Mean Platelet Volume 9.5 fL (7.4-10.4); Monocytes # (auto) 0.49 K/uL (0.11-0.59); Monocytes % (auto) 9.2 %; Neutrophils # (auto) 4.07 K/uL (1.4-6.5); Neutrophils % (auto) 76.3 %; Platelet Count 254 K/uL (130-400); RDW Coefficient of Variation 13.9 % (11.5-14.5); RDW Standard Deviation 48.4 fL (36.4-46.3); White Blood Count 5.34 K/uL (4.8-10.8)
[2022-04-10 06:59] LABS: Albumin Globulin Ratio 1.1 (0.9-2); Albumin Level 3.2 gm/dl (3.4-5.0); BUN Creatinine Ratio 17.7 (10-20); Bilirubin,Total 0.4 mg/dl (0.2-1.0); Calcium 7.8 mg/dl (8.5-10.1); Est GFR (African American) 98.7 ml/min; Est GFR (Non-African American) 85.2 ml/min; Globulin 2.9 gm/dl (2.5-4.0); Magnesium 1.8 mg/dl (1.7-2.4); Potassium 4.1 mmol/L (3.5-5.1); Total Protein 6.1 gm/dl (6.0-8.3)
[2022-04-10] MEDS: RALOXIFENE HCL 60 MG TAB PO SCH (09:20)
[2022-04-10] MEDS: cefTRIAXone SODIUM 1,000 MG in DEXTROSE 5% 50 ML IV SCH (09:20)
[2022-04-10] MEDS: POTASSIUM CHLORIDE CRTAB 20 MEQ TABCR PO SCH ×2 (09:20→22:01)
--- NOTE | 2022-04-10 09:58 | Orthopedic Consultation ---
Date of Consultation April 10, 2022 Assessment & Plan (1) Intertrochanteric fracture of left hip: The x-ray results reviewed with the patient and also on the phone with her daughter, Melvina. The patient is currently NPO. She will be added onto the OR schedule today for a left trochanteric nailing. All potential risks, benefits, complications, alternatives, and rehab have been discussed with the patient and she wishes to proceed. These were also discussed with the patient's daughter over the phone. We will plan for aspirin 81 mg twice daily x4 weeks for postoperative DVT prophylaxis. We will continue to follow with the patient postoperatively. Thank you for the consultation. History of Present Illness Reason for Consultation: Left hip pain Attending Physician: Ab Leiva MD History of Present Illness This is a patient who was cleaning out her home yesterday. States she had taken a step back and feels she tripped over a roll of paper towels. She had a fall onto her buttocks and left side. She had significant pain within the left hip and an inability to ambulate. She was brought to the [facility] ER where x-rays were performed and she was noted to have a left femur intertrochanteric fracture. She was kept n.p.o. She is now being set up for surgical treatment. Allergies Allergy/AdvReac Type Severity Reaction Status Date / Time influenza virus vaccine, Allergy Severe Gillean Verified 04/09/22 12:40 specific [place] Syndrome Sulfa (Sulfonamide Allergy Unknown Unknown Verified 04/09/22 12:40 Antibiotics) cephalexin AdvReac Nausea Verified 04/09/22 12:40 Home Medications Medication Instructions Recorded Confirmed Type ferrous sulfate 325 mg (65 mg 325 mg PO 3XWK 07/17/18 04/09/22 History iron) tablet (iron) raloxifene 60 mg tablet 60 mg PO QAM 01/20/20 04/09/22 History cyanocobalamin (vitamin B-12) 500 500 mcg PO QAM 12/20/20 04/09/22 History mcg tablet (Vitamin B-12) cranberry extract 500 mg capsule 500 mg PO QAM cap 05/08/21 04/09/22 History (Cranberry Concentrate) cholecalciferol (vitamin D3) 1,250 100,000 unit PO .QSUN 04/09/22 04/09/22 History mcg (50,000 unit) capsule diclofenac sodium 1 % topical gel 2 g TOPICAL QID PRN 04/09/22 04/09/22 History miconazole nitrate 2 % topical 1 applic TOPICAL BID 04/09/22 04/09/22 History cream potassium chloride 10 mEq 20 meq PO BID 04/09/22 04/09/22 History tablet,extended release Patient History Medical History Anemia chronic 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 Hx of breast cancer right breast (2000) s/p radiation 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 Berman 09/2021 Hx of hysterectomy Hx of lumpectomy Right breast Family History Mother Macular degeneration Father Kidney stone Diabetes Social History Smoking Status: Smoker, status unknown Second Hand Exposure: No; Hx Alcohol Use: No Hx Substance Use: No Preferred Language: Haitian Communication Ability: Effective Visual Impairment: No Limitations Ornamenter Hand Required: No Beliefs That Will Affect Care: None marital status: / Current Living Situation: Spouse Current Living Situation Comment: lives at home independently Feels Safe at Home: Yes Safety Concerns: Feels Safe At This Time Assistive Devices: Glasses and Hearing Aid - Bilateral Physical Exam Constitutional: WD/WN, vitals as above well developed, well nourished and + acute distress (Obvious pain in the left hip with any movement) ENMT: external ear and nose normal, oropharynx normal Neck: trachea midline Musculoskeletal: Hip: + limited ROM of hip (Left hip), + joint line tenderness (Left proximal femur) and + log roll test positive (Left); no skin erythema and no ecchymosis Skin: no rashes, warm and dry Trauma: no evidence of skin trauma Neurologic: normal touch/pain/proprioception Psychiatric: A+Ox3, euthymic affect Speech: normal rate/rhythm/volume of speech Lymphatic: no cervical or axillary lymphadenopathy Results & Data ([facility]) Vital Signs (Past 12 Hours) Vital Signs Temp Pulse Resp BP Pulse Ox 04/10/22 07:37 37.6 C H 87 18 130/66 93 Diagnostic Findings Left hip x-rays: Nondisplaced intertrochanteric femur fracture. (1) Intertrochanteric fracture of left hip Encounter type: initial encounter Fracture alignment: nondisplaced Fracture type: closed Qualified Code(s): S72.145A - Nondisplaced intertrochanteric fracture of left femur, initial encounter for closed fracture
[2022-04-10] MEDS: SODIUM CHLORIDE 0.9% 1000ML 1,000 ML IV SCH (10:20)
[2022-04-10] MEDS ORDERED: PROPOFOL IV EMULSION 10 MG/ML 20 ML VIAL IV ONE ×3 (10:40→15:07)
[2022-04-10] MEDS ORDERED: fentaNYL citrate 100 MCG/2 ML VIAL ONE (10:40)
[2022-04-10] MEDS ORDERED: LIDOCAINE 2% 2 ML VIAL/AMP(20MG/ML) INFIL ONE (10:40)
[2022-04-10] MEDS ORDERED: LABETALOL HCL IV 5 MG/ML 20ML IV PRN (13:40)
[2022-04-10] MEDS ORDERED: ONDANSETRON INJ 2 MG/ML 2 ML VIAL IV PRN (13:40)
[2022-04-10] MEDS ORDERED: PHENYLEPHRINE 100MCG/ML 5ML SYR IV PRN (13:40)
[2022-04-10] MEDS ORDERED: ePHEDrine sulfate 50 MG/ML AMP IV PRN (13:40)
[2022-04-10] MEDS ORDERED: ATROPINE SULFATE 0.1 MG/ML 10ML SYR IV PRN (13:40)
[2022-04-10] MEDS ORDERED: fentaNYL citrate 100 MCG/2 ML VIAL IV PRN (13:40)
[2022-04-10] MEDS ORDERED: HYDROmorphone INJ 1 MG/ML SYRINGE IV PRN (13:40)
[2022-04-10] MEDS ORDERED: BUPIVACAINE 0.5 % 5 MG/1 ML PF 10ML VIAL ONE (13:46)
--- NOTE | 2022-04-10 14:01 | History & Physical Bridge Note ---
Date of Service April 10, 2022 History & Physical Bridge Note I have examined the patient, reviewed the History & Physical and in the interval since the performance of the History & Physical I have noted the following changes of clinical significance: no changes noted
[2022-04-10] MEDS ORDERED: BUPIVACAINE 0.5 % 5 MG/1 ML MPF 30ML VIAL ONE (14:27)
[2022-04-10] MEDS ORDERED: PHENYLEPHRINE 100MCG/ML 5ML SYR ONE ×2 (14:39→15:32)
[2022-04-10] MEDS ORDERED: ceFAZolin 330 MG/ML 1 GM VIAL ONE (14:57)
[2022-04-10] MEDS ORDERED: ceFAZolin 2000MG 2,000 MG/15 ML SYR IV ONE ×2 (15:06→21:00)
--- NOTE | 2022-04-10 15:39 | Post Operative Brief Note ---
Immediate Post Op Note v1 Date of Surgery April 10, 2022 Pre & Post Diagnosis Operation Date: 04/10/22 11:05 Pre-Op Diagnosis: Left displaced intertrochanteric hip fracture Post-Op Diagnosis: Left displaced intertrochanteric hip fracture I identified the patient and participated in the time-out.: Yes Procedure Operation Date: 04/10/22 11:05 Actual Procedures p open reduction internal fixation left intertrochanteric hip fracture with Synthes locked short trochanteric Nail Left(Left) - Newton Jo DO Surgeon Newton Jo DO Firebreak Cutter Bogdan Slaughter PA-C Estimated Blood Loss 20 Findings Consistent with Post-Op Diagnosis Drains Santillan Catheter (inserted prior to arrival in perioperative area ) Anesthesia Type General Complications none Disposition Accompanied Patient To Recovery: No
--- NOTE | 2022-04-10 15:52 | Fluoroscopy Report ---
FL hip LT 2-3V CLINICAL HISTORY: LEFT SIDED TROCH NAIL. Status post internal fixation COMPARISON STUDY: 04/09/2022 FLUOROSCOPY TIME: 75 second. FLUOROSCOPIC IMAGES: 4 FINDINGS: The patient is status post placement of an intertrochanteric nail transfixing femoral neck fracture. Short intratrochanteric marion is present within the proximal femoral shaft transfixed by a sc rew distally. IMPRESSION: Status post internal fixation of femoral neck fracture. ACT 112: Negative or not required by law. Electronically signed by: Callum Mariee M.D. 04/10/2022 3:50 PM
--- NOTE | 2022-04-10 16:39 | Anesthesiology Progress Note ---
Date of Service April 10, 2022 Anesthesia Post Procedure Vital Signs Vital Signs: Temp Pulse Pulse Pulse Resp BP BP 04/10/22 16:25 36.7 C 96 H 16 107/74 04/10/22 16:15 95 H 15 127/62 04/10/22 16:05 93 H 18 115/75 04/10/22 15:57 36.8 C 93 H 13 118/61 04/10/22 11:38 37.5 C 90 18 140/62 04/10/22 07:37 37.6 C H 87 18 130/66 04/09/22 20:05 37.3 C 86 18 138/71 04/09/22 19:38 36.9 C 86 20 121/61 04/09/22 19:02 79 24 130/81 04/09/22 17:12 85 18 04/09/22 17:05 Pulse Ox Pulse Ox 04/10/22 16:25 95 04/10/22 16:15 93 04/10/22 16:05 98 04/10/22 15:57 97 04/10/22 11:38 93 04/10/22 07:37 93 04/09/22 20:05 93 04/09/22 19:38 96 04/09/22 19:02 95 04/09/22 17:12 96 04/09/22 17:05 96 Pain Intensity Left Hip: Pain Intensity: 1 Transfer of Care Handoff Completed per policy Notes Mental Status: alert / awake / arousable Patient Amnestic to Procedure: Yes Nausea / Vomiting: adequately controlled Pain: adequately controlled Airway Patency, RR, SpO2: stable & adequate BP & HR: stable & adequate Hydration State: stable & adequate Neuraxial Anesthesia: was administered and sensory block is resolving Anesthetic Complications: no major complications apparent and Pt Satisfied with anesthetic care Notes: The patient is awake and comfortable.
--- NOTE | 2022-04-10 16:49 | Hospitalist Progress Note ---
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 Mechanical Fall Intertrochanteric fracture of Left hip Age-related osteoporosis w current pathologic fracture -Hip X ray:Acute intertrochanteric fracture of the left proximal femur as above. S/P ORIF with Synthes locked short trochanteric Nail Left by Dr. Newton Jo on 04/10/22 Appreciate Orthopedics Input Pain control Bowel regimen to prevent constipation Monitor for post op anemia PT/OT as able UTI H/O Complicated UTI involving ureteral stone in past Urine Culture: Gram negative bacilli Continue Ceftriaxone H/O Breast Cancer S/P lumpectomy and Radiation therapy on raloxifene Anemia of Chronic Disease Monitor Hb Continue Iron Supplements DVT Px: SCDS for now Code Status FULL CODE PCP: Lolly Disposition PT/OT prior to discharge Admission and Anticipated Discharge Date Admission Date: April 09, 2022 Subjective Patient is seen and examined at bedside Had left hip surgery earlier today Complains of left hip pain postsurgically Denies any chest pain, shortness of breath, dizziness, nausea, abdomen pain Offers no other complaints Review of Systems Review of Systems: All systems reviewed & are unremarkable except as noted in Subjective Physical Exam Physical Exam: Physical Exam: Vitals signs as noted above General Appearance:Moderately built and nourished, no apparent distress Head: normocephalic, Atraumatic Eyes: normal inspection, EOMI Neck: supple, Trachea midline Respiratory/Chest: Normal breath sounds, CTA, No accessory muscle use Cardiovascular: S1, S2, No murmur, Tachycardia Abdomen/GI:Soft, Non tender, Bowel sounds present Extremities/Musculoskeletal:normal inspection, no edema, Left hip surgical site in dressing Neurologic/Psych:AAOX3, grossly no focal neurological deficits Skin: normal color, warm Results & Data Results & Data ([facility]) Vital Signs (Past 12 Hours) Vital Signs Temp Pulse Pulse Resp BP Pulse Ox 04/10/22 16:25 36.7 C 96 H 16 107/74 95 04/10/22 16:15 95 H 15 127/62 93 04/10/22 16:05 93 H 18 115/75 98 04/10/22 15:57 36.8 C 93 H 13 118/61 97 04/10/22 11:38 37.5 C 90 18 140/62 93 04/10/22 07:37 37.6 C H 87 18 130/66 93 Laboratory Results Short CBC 04/10/22 Range/Units 06:03 WBC 5.34 (4.8-10.8) K/uL Hgb 10.9 L (12.0-16.0) g/dL Hct 34.2 L (37-47) % Plt Count 254 (130-400) K/uL BMP 04/10/22 06:03 Sodium 139 Potassium 4.1 Chloride 110 H Carbon Dioxide 24 BUN 11 Creatinine 0.62 Glucose 100 H Calcium 7.8 L Liver Function 04/10/22 Range/Units 06:03 Total Bilirubin 0.4 (0.2-1.0) mg/dl AST 11 L (13-39) U/L ALT 8 (7-52) U/L Alkaline Phosphatase 90 (34-104) U/L Albumin 3.2 L (3.4-5.0) gm/dl (1) Intertrochanteric fracture of left hip Encounter type: initial encounter Fracture alignment: nondisplaced Fracture type: closed Qualified Code(s): S72.145A - Nondisplaced intertrochanteric fracture of left femur, initial encounter for closed fracture
[2022-04-10] MEDS ORDERED: oxyCODONE HCL IR 5 MG TAB (IMMEDIATE RELEASE) PO PRN ×2 (17:13)
[2022-04-10] MEDS: ACETAMINOPHEN 500 MG TAB PO SCH (17:53)
--- NOTE | 2022-04-10 19:49 | XRay Report ---
LEFT HIP 2 VIEWS CLINICAL HISTORY: Postoperative examination. FINDINGS: AP and crosstable lateral views of the left hip are compared to study dated 04/09/2022. Inte rtrochanteric and intramedullary nails have been placed transfixing an intertrochanteric fracture of the left proximal femur. Near-anatomic alignment is maintained. A single cortical lag screw transfixe s the distal end of the nail. No new fracture is seen. Soft tissue edema, subcutaneous gas, and skin clips overlying the left hip are expected postoperative changes. Orthopedic hardware is partially vis ualized in the right proximal femur. IMPRESSION: Expected postoperative findings status post open reduction and internal fixation of the l eft proximal femur. Electronically signed by: Ron Morin M.D. 04/10/2022 7:47 PM
[2022-04-10] MEDS: DOCUSATE SODIUM/SENNA 50/8.6MG TAB PO SCH (22:01)
[2022-04-10] MEDS: ASPIRIN 81 MG ECTAB PO SCH (22:01)
--- NOTE | 2022-04-11 00:01 | Operative Report (OR) ---
DATE OF PROCEDURE: 04/10/2022 PREOPERATIVE DIAGNOSIS: Left displaced intertrochanteric hip fracture. POSTOPERATIVE DIAGNOSIS: Left displaced intertrochanteric hip fracture. PROCEDURE: Open reduction and internal fixation of left intertrochanteric hip fracture using a Synth es locked trochanteric nail. SURGEON: Newton Jo DO. FASHION SUPERVISOR: Bogdan Slaughter PA-C who was present for patient positioning, sterile prep and drape, management of retractors and instruments. He was present through the critical portions of the case i ncluding wound closure, application of sterile dressing and transport of the patient to recovery.. ANESTHESIA: General, local. SPECIMENS: None. DRAINS: None. COMPLICATIONS: None. BLOOD LOSS: 20 mL. PERTINENT HISTORY: This is an 81-year-old female who was at home and doing some cleaning. She backe d up and tripped on a roll of paper towel and lost her balance, fell on to her left hip. She was ophelia ble to ambulate, had severe pain, transferred to [facility] where she was evaluated and radiographed and then noted to have a displaced intertrochanteric left hip fracture. She was th en admitted to the hospitalist service with orthopedics consult. The patient was seen and examined. Radiographs reviewed, noted to have a displaced left intertrochanteric hip fracture. She was then s cheduled for surgery as indicated. All potential risks, benefits, complications, alternatives, rehab potential for incomplete relief of symptoms, need for further surgery, DVT, PE, , persistent pain, swelling, scarring, weakness, ne urovascular injury, wound complications, hardware failure, nonunion, malunion, bone fracture were dis cussed with the patient. The patient decided to proceed with the procedure as indicated. DESCRIPTION OF PROCEDURE: The patient was transferred to the operative suite. The proper site was id entified. The consent was reviewed, the patient was then administered sedation and spinal anesthetic. Once appropriate, the patient then transferred to the fracture table where the lower extremity was p laced in fracture table traction and the nonoperative leg was placed in the well leg rivera. All bony prominences were properly padded and protected. The padded post was placed in the peroneal and the p atient was positioned appropriately. Next the left leg was placed on traction and reduction of the fr acture was performed under fluoroscopic control. Next the operative hip was then sterilely prepped an d draped in the usual fashion. Next a 10-blade scalpel incision was used to make an incision proximal to the greater trochanter. The incision was deep in the subcutaneous tissue and fascia and the tip o f the greater trochanter was then palpated followed by placement of a guide pin under fluoroscopic co ntrol driven into the greater trochanter down to the level of the less trochanter. This was confirmed in AP and lateral projections followed by placement of the proximal reamer over the cannulated guide pin. Next the reamer was then removed using the soft tissue protector, which was also removed. Next the ball tip guide marion was placed into the proximal femur under fluoroscopic control confirmed with A P and lateral fluoroscope projections. Next the trochanteric nail was then passed over the guide marion into the femur, the guide marion was removed and then under fluoroscopic control appropriate level of th e femoral nail was then placed in AP projections. Next the targeting device was then fixed to the dri ving handle and 10-blade scalpel incision was made in the lateral aspect of the thigh. Next the tissu e protector and cannulated guide system was then passed into the soft tissue until it was securely fi xed against a lateral aspect of the femoral cortex. This was also confirmed under C-arm. Next the vidhya de pin for the spiral blade was driven into the lateral aspect of the femur confirming this with AP l ateral projections until the guide pin was in the center of the femoral neck and head approximately 5 mm from the subcortical bone of the femur. Next the spiral blade was then measured and then the late ral cortex was then drilled with the cortex reamer followed by use of the triple reamer with the dept h stop set at appropriate depth. In this case, a 90 mm spiral blade was then inserted over the cannul ated guide marion under fluoroscopic control. This was seated appropriately then traction was reduced fr om the limb and the fracture was then gently compressed and then locked proximally with the flexible screwdriver. Next the spiral blade was then disengaged from its insertion handle, insertion handle wa s then removed and the guide pin was removed from the femoral neck and head. Next the lateral targeti ng arm was used to insert the distal locking screw. First a 10-blade scalpel incision was made in the lateral aspect of the thigh, captured drill sleeves were then tamped gently to the lateral aspect of the femoral cortex then the locking screw hole was then drilled, measured and then an appropriate le ngth screw was placed to lock the distal aspect of the nail. Next targeting sleeves were then removed . The insertion arm was then removed from the nail and final x-rays were obtained in AP and lateral p rojections. All incisions were then copiously irrigated with sterile normal saline. The proximal glut eus fascia was then closed using interrupted #1 Vicryl, the dermis was closed using buried interrupte d 2-0 Vicryl sutures in all three incisions and the skin was then closed using skin ubaldo. A steril e compressive dressing consisting of Xeroform gauze, sterile 4 x 4's and Tegaderm was applied. The pa tient was then awakened and taken to recovery in stable condition. Job ID: [id number]
[2022-04-11] MEDS: ACETAMINOPHEN 500 MG TAB PO SCH ×3 (02:08→18:16)
[2022-04-11 07:36] LABS: Hematocrit (blood only) 31.6 % (37-47); Hemoglobin 10.1 g/dL (12.0-16.0); Mean Corpuscular Hemoglobin 29.9 pg (25-34); Mean Corpuscular Volume 93.5 fL (80-100); Mean Platelet Volume 9.5 fL (7.4-10.4); Platelet Count 220 K/uL (130-400); RDW Coefficient of Variation 14.2 % (11.5-14.5); RDW Standard Deviation 48.8 fL (36.4-46.3); Red Blood Count 3.38 M/uL (4.2-5.4)
[2022-04-11 07:40] LABS: BUN Creatinine Ratio 10.8 (10-20); Calcium 7.8 mg/dl (8.5-10.1); Creatinine Clr Calc Pharmacy 67.7 ml/min; Est GFR (African American) 97.2 ml/min; Est GFR (Non-African American) 83.9 ml/min; Potassium 3.8 mmol/L (3.5-5.1)
--- NOTE | 2022-04-11 08:39 | Orthopedic Progress Note ---
Date of Service April 11, 2022 Assessment & Plan (1) Intertrochanteric fracture of left hip: Plan: Postop day 1 status post left hip trochanteric nailing. Toe-touch weightbearing left lower extremity. Importance of this was discussed with the patient. She will toe-touch weightbearing for approximately 4 to 6 weeks. PT/OT DVT prophylaxisTED stockings, aspirin 81 mg twice daily Pain control Discharge planninguncertain at this time. She would like to be go home but needs to be doing very well with toe-touch weightbearing. May require rehabilitation stay. Admission and Anticipated Discharge Date Admission Date: April 09, 2022 Supervising Physician Co-Signing Physician Notes Patient seen and examined. Agree with TARIQ Slaughter's note as above. Pain is well controlled. Dressings are clean, dry, intact. Motor and sensory function intact. Reviewed toe-touch weightbearing precautions with her. Subjective Doing well today. Has some soreness in the left hip but overall pain is controlled. Generally, the pain is much better than it was preoperatively. Den ies chest pain, lightheadedness, shortness of breath. Physical Exam Constitutional: WD/WN, vitals as above well developed, well nourished and + acute distress (Obvious pain in the left hip with any movement) ENMT: external ear and nose normal, oropharynx normal Neck: trachea midline Musculoskeletal: Hip: + surgical incision (Dressing C/D/I lateral left hip) and + joint line tenderness (Left thigh and hip is soft); no skin erythema and no ecchymosis Skin: no rashes, warm and dry Trauma: no evidence of skin trauma Neurologic: normal touch/pain/proprioception Psychiatric: A+Ox3, euthymic affect Speech: normal rate/rhythm/volume of speech Lymphatic: no cervical or axillary lymphadenopathy Results & Data ([facility]) Vital Signs (Past 12 Hours) Vital Signs Temp Pulse Resp BP Pulse Ox 04/11/22 07:35 37.1 C 85 18 102/61 92 04/11/22 02:20 37.0 C 87 16 120/67 96 04/10/22 22:10 36.7 C 90 16 116/65 96 (1) Intertrochanteric fracture of left hip Encounter type: initial encounter Fracture alignment: nondisplaced Fracture type: closed Qualified Code(s): S72.145A - Nondisplaced intertrochanteric fracture of left femur, initial encounter for closed fracture
[2022-04-11] MEDS: SODIUM CHLORIDE 0.9% 1000ML 1,000 ML IV SCH (09:20)
[2022-04-11] MEDS: RALOXIFENE HCL 60 MG TAB PO SCH (09:22)
[2022-04-11] MEDS: cefTRIAXone SODIUM 1,000 MG in DEXTROSE 5% 50 ML IV SCH (09:22)
[2022-04-11] MEDS: ASPIRIN 81 MG ECTAB PO SCH ×2 (09:23→19:57)
[2022-04-11] MEDS: POTASSIUM CHLORIDE CRTAB 20 MEQ TABCR PO SCH ×2 (09:24→19:57)
--- NOTE | 2022-04-11 17:42 | Hospitalist Progress Note ---
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 Mechanical Fall Intertrochanteric fracture of Left hip Age-related osteoporosis w current pathologic fracture -Hip X ray:Acute intertrochanteric fracture of the left proximal femur as above. S/P ORIF with Synthes locked short trochanteric Nail Left by Dr. Newton Jo on 04/10/22 Appreciate Orthopedics Input Pain control Bowel regimen to prevent constipation Monitor for post op anemia Continue PT/OT On aspirin 81 mg twice daily for DVT prophylaxis Toe-touch weightbearing for approximately 4 to 6 weeks May need rehab placement Needs follow-up with orthopedics upon discharge UTI H/O Complicated UTI involving ureteral stone in past Urine Culture: Klebsiella Continue Ceftriaxone H/O Breast Cancer S/P lumpectomy and Radiation therapy on raloxifene Anemia of Chronic Disease Monitor Hb Continue Iron Supplements DVT Px: Aspirin BID Code Status FULL CODE PCP: Lolly Disposition Rehab as able Admission and Anticipated Discharge Date Admission Date: April 09, 2022 Subjective Patient is seen and examined at bedside Left hip pain at surgical site is controlled Had PT earlier today No new complaints Denies any chest pain, shortness of breath, dizziness, nausea, abdomen pain Review of Systems Review of Systems: All systems reviewed & are unremarkable except as noted in Subjective Physical Exam Physical Exam: Physical Exam: Vitals signs as noted above General Appearance:Moderately built and nourished, no apparent distress Head: normocephalic, Atraumatic Eyes: normal inspection, EOMI Neck: supple, Trachea midline Respiratory/Chest: Normal breath sounds, CTA, No accessory muscle use Cardiovascular: S1, S2, No murmur, Tachycardia Abdomen/GI:Soft, Non tender, Bowel sounds present Extremities/Musculoskeletal:normal inspection, no edema, Left hip surgical site in dressing Neurologic/Psych:AAOX3, grossly no focal neurological deficits Skin: normal color, warm Results & Data Results & Data ([facility]) Vital Signs (Past 12 Hours) Vital Signs Temp Pulse Resp BP BP Pulse Ox 04/11/22 15:04 37 C 99 H 18 100/62 95 04/11/22 11:18 36.6 C 87 18 106/63 95 04/11/22 07:35 37.1 C 85 18 102/61 92 Laboratory Results Short CBC 04/11/22 Range/Units 06:46 WBC 5.20 (4.8-10.8) K/uL Hgb 10.1 L (12.0-16.0) g/dL Hct 31.6 L (37-47) % Plt Count 220 (130-400) K/uL BMP 04/11/22 06:46 Sodium 138 Potassium 3.8 Chloride 107 Carbon Dioxide 27 BUN 7 Creatinine 0.65 Glucose 102 H Calcium 7.8 L (1) Intertrochanteric fracture of left hip Encounter type: initial encounter Fracture alignment: nondisplaced Fracture type: closed Qualified Code(s): S72.145A - Nondisplaced intertrochanteric fracture of left femur, initial encounter for closed fracture
[2022-04-11] MEDS: DOCUSATE SODIUM/SENNA 50/8.6MG TAB PO SCH ×2 (19:57→20:00)
[2022-04-12] MEDS: ACETAMINOPHEN 500 MG TAB PO SCH ×2 (02:29→09:32)
[2022-04-12 07:29] LABS: Hematocrit (blood only) 30.6 % (37-47); Hemoglobin 9.8 g/dL (12.0-16.0); Mean Corpuscular Hemoglobin 30.3 pg (25-34); Mean Corpuscular Volume 94.7 fL (80-100); Mean Platelet Volume 9.6 fL (7.4-10.4); Platelet Count 230 K/uL (130-400); RDW Coefficient of Variation 14.1 % (11.5-14.5); RDW Standard Deviation 48.9 fL (36.4-46.3); Red Blood Count 3.23 M/uL (4.2-5.4)
[2022-04-12] MEDS: RALOXIFENE HCL 60 MG TAB PO SCH (07:53)
[2022-04-12] MEDS: ASPIRIN 81 MG ECTAB PO SCH (07:53)
[2022-04-12] MEDS: POTASSIUM CHLORIDE CRTAB 20 MEQ TABCR PO SCH (07:56)
[2022-04-12] MEDS: cefTRIAXone SODIUM 1,000 MG in DEXTROSE 5% 50 ML IV SCH (07:56)
[2022-04-12 08:13] LABS: BUN Creatinine Ratio 15.6 (10-20); Calcium 8.1 mg/dl (8.5-10.1); Creatinine Clr Calc Pharmacy 68.8 ml/min; Est GFR (African American) 97.7 ml/min; Est GFR (Non-African American) 84.3 ml/min; Potassium 4.1 mmol/L (3.5-5.1)
--- NOTE | 2022-04-12 12:06 | Orthopedic Progress Note ---
Date of Service April 12, 2022 Assessment & Plan (1) Intertrochanteric fracture of left hip: Plan: Postop day 2 status post left hip trochanteric nailing. Toe-touch weightbearing left lower extremity. Importance of this was discussed with the patient. She will toe-touch weightbearing for approximately 4 to 6 weeks. PT/OT DVT prophylaxisTED stockings, aspirin 81 mg twice daily Pain control Discharge planningTyrone swing bed. Possibly later today. OK from ortho standpoint to be discharged if accepted. Admission and Anticipated Discharge Date Admission Date: April 09, 2022 Subjective Doing well today. No complaints. Pain controlled. Waiting to see if she can be accepted to [facility] swing bed. Physical Exam Constitutional: WD/WN, vitals as above (Sitting at the bedside chair, comfortable.) well developed, well nourished and + acute distress (Obvious pain in the left hip with any movement) ENMT: external ear and nose normal, oropharynx normal Neck: trachea midline Musculoskeletal: Hip: + surgical incision (Dressing C/D/I lateral left hip) and + joint line tenderness (Left thigh and hip is soft); no skin erythema and no ecchymosis Skin: no rashes, warm and dry Trauma: no evidence of skin trauma Neurologic: normal touch/pain/proprioception Psychiatric: A+Ox3, euthymic affect Speech: normal rate/rhythm/volume of speech Lymphatic: no cervical or axillary lymphadenopathy Results & Data ([facility]) Vital Signs (Past 12 Hours) Vital Signs Temp Pulse Resp BP Pulse Ox 04/12/22 07:15 37.2 C 83 16 110/69 95 (1) Intertrochanteric fracture of left hip Encounter type: initial encounter Fracture alignment: nondisplaced Fracture type: closed Qualified Code(s): S72.145A - Nondisplaced intertrochanteric fracture of left femur, initial encounter for closed fracture
--- NOTE | 2022-04-12 13:14 | Hospitalist Progress Note ---
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 S/P ORIF with Synthes locked short trochanteric Nail Left by Dr. Newton Jo on 04/10/22 Appreciate Orthopedics Input Pain control Bowel regimen to prevent constipation Monitor for post op anemia Continue PT/OT On aspirin 81 mg twice daily for DVT prophylaxis Toe-touch weightbearing for approximately 4 to 6 weeks Needs follow-up with orthopedics upon discharge Plan to discharge to SNF today UTI H/O Complicated UTI involving ureteral stone in past Urine Culture: Klebsiella Continue Ceftriaxone Day #3 H/O Breast Cancer S/P lumpectomy and Radiation therapy on raloxifene Anemia of Chronic Disease Monitor Hb Continue Iron Supplements DVT Px: Aspirin BID Code Status FULL CODE PCP: Lolly Disposition SNF Admission and Anticipated Discharge Date Admission Date: April 09, 2022 Subjective Patient is seen and examined at bedside Was having PT earlier today Reports Left hip pain but tolerable Denies any chest pain, shortness of breath, dizziness, nausea, abdomen pain Plan to be discharged to rehab facility today Review of Systems Review of Systems: All systems reviewed & are unremarkable except as noted in Subjective Physical Exam Physical Exam: Physical Exam: Vitals signs as noted above General Appearance:Moderately built and nourished, no apparent distress Head: normocephalic, Atraumatic Eyes: normal inspection, EOMI Neck: supple, Trachea midline Respiratory/Chest: Normal breath sounds, CTA, No accessory muscle use Cardiovascular: S1, S2, No murmur, Tachycardia Abdomen/GI:Soft, Non tender, Bowel sounds present Extremities/Musculoskeletal:normal inspection, no edema, Left hip surgical site in dressing Neurologic/Psych:AAOX3, grossly no focal neurological deficits Skin: normal color, warm Results & Data Results & Data ([facility]) Vital Signs (Past 12 Hours) Vital Signs Temp Pulse Resp BP Pulse Ox 04/12/22 07:15 37.2 C 83 16 110/69 95 Laboratory Results Short CBC 04/12/22 Range/Units 06:49 WBC 6.00 (4.8-10.8) K/uL Hgb 9.8 L (12.0-16.0) g/dL Hct 30.6 L (37-47) % Plt Count 230 (130-400) K/uL BMP 04/12/22 06:49 Sodium 138 Potassium 4.1 Chloride 105 Carbon Dioxide 30 BUN 10 Creatinine 0.64 Glucose 89 Calcium 8.1 L (1) Intertrochanteric fracture of left hip Encounter type: initial encounter Fracture alignment: nondisplaced Fracture type: closed Qualified Code(s): S72.145A - Nondisplaced intertrochanteric fracture of left femur, initial encounter for closed fracture
--- NOTE | 2022-04-12 13:26 | Discharge Summary ---
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 Patient states she was cleaning her bedroom whenever she stepped backwards and tripped over a paper towel landing on her left side. She knew instantly something was wrong. She was able to crawl to her phone where she called her daughter who urged her to call EMS. She does live alone but has live supportive family. Her mother is still living at the age of 98-year-old home. She is otherwise a healthy and active 81-year-old. 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 She denies any recent illness, f/c/s, chest pain, sob, cough, uri sx, n/v/d, abd pain, dysuria, increased urg/freq urination, hematuria, melena or hematochezia. She is very active and denies any CP or SOB when climbing 1 flight of steps. Hx of L knee replacement this past September by Dr. Berman in [place]. Also hx of R hip fx and surgical correction many years ago by Dr. Fox with [facility] In ED pt remained hemodynam ically stable. She was mildly hypotensive during my eval 2/2 morphine administration. She does have L hip pain with movement, but denies any numbness or tingling. UA + for UTI. Admission Exam Per Admitting Provider Physical Exam Physical Exam: Constitutional: WD/WN, vitals as above, NAD, sitting up in bed, pleasant, conversing easily Head: Normocephalic, Atraumatic Eyes: PERRL, conjunctivae normal, anicteric sclerae ENMT: external ear and nose normal, oropharynx normal Neck: trachea midline, no thyromegaly normal visual inspection Respiratory: normal respiratory effort, lungs clear to auscultation, no wheeze, rales, rhonchi. Normal insp/exp effort, no accessory muscle use Cardiovascular: RRR, no murmur, no edema Vessels: no JVD or carotid bruit Chest: normal inspection of chest Abdomen: normal bowel sounds, soft, nontender, no hepatosplenomegaly Musculoskeletal: no cyanosis or clubbing, AROM x 3, lle not tested, NVI distally, + inversion, no shortening, no ecchymosis Skin: no rashes, warm and dry normal turgor Neurologic: PERRL, EOMI, accommodation nl, no face palsy, no dysarthria CN's II-XI intact bilaterally and moves all extremities Psychiatric: A+Ox3, euthymic affect Lymphatic: no cervical or axillary lymphadenopathy : deferred Principal Diagnosis Mechanical Fall Intertrochanteric fracture of Left hip Urinary Tract Infection Discharge Data Allergies Allergy/AdvReac Type Severity Reaction Status Date / Time influenza virus vaccine, Allergy Severe Gillean Verified 04/09/22 12:40 specific [place] Syndrome Sulfa (Sulfonamide Allergy Unknown Unknown Verified 04/09/22 12:40 Antibiotics) cephalexin AdvReac Nausea Verified 04/09/22 12:40 Consultations 04/09/22 11:53 ED Decision to Admit Stat 04/09/22 12:22 Consult Orthopedic Surgery Routine 04/09/22 13:18 Consult Anesthesiology Routine Procedures Performed Operation Date: 04/10/22 11:05 Actual Procedures p Trochanteric Nail Left(Left) - Newton Jo DO Ordered Studies 04/10/22 13:00 FL hip LT 2-3V Routine Hospital Course (1) Fall: (2) Intertrochanteric fracture of left hip: Patient is a 80 yr female with H/O Right breast cancer, 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 Mechanical Fall Intertrochanteric fracture of Left hip Age-related osteoporosis w current pathologic fracture -Hip X ray:Acute intertrochanteric fracture of the left proximal femur as above. S/P ORIF with Synthes locked short trochanteric Nail Left by Dr. Newton Jo on 04/10/22 [facility] Input Pain control Bowel regimen to prevent constipation Monitor for post op anemia Continue PT/OT On aspirin 81 mg twice daily for DVT prophylaxis Toe-touch weightbearing for approximately 4 to 6 weeks Needs follow-up with orthopedics upon discharge Plan to discharge to SNF today UTI H/O Complicated UTI involving ureteral stone in past Urine Culture: Klebsiella Continue Ceftriaxone Day #3 H/O Breast Cancer S/P lumpectomy and Radiation therapy on raloxifene Anemia of Chronic Disease Monitor Hb Continue Iron Supplements DVT Px: Aspirin BID Code Status FULL CODE PCP: Lolly Disposition SNF Total Time Total Time Spent Total Time Spent (In Minutes): 51 minutes Discharge Plan Discharge Items Patient Disposition: Transfer [facility] Reason For Visit: L HIP FX, MECHANICAL FALL Discharge Diagnosis: Mechanical Fall Intertrochanteric fracture of Left hip Urinary Tract Infection Activity: Per Instructions section Exercise/Sports: Gradually increase as tolerated Weightbearing: Left toe touch Non-emergency contact: Primary Care Provider and Surgeon Call non-emergency contact if: you have any medication questions, your symptoms worsen, your pain is concerning for you and you have a fever Follow-up/Referrals: Indu Ambrocio [Primary Care Provider] - Diet: Heart Healthy Stevie Attending Provider Instructions: Follow-up with your primary care physician in 1 week upon discharge from rehab facility Follow-up with your orthopedic surgeon Dr.Bradley Jo in 2 weeks --- Complete antibiotic course (Cefdinir 300mg twice a day for 3 more days) for urinary tract infection as prescribed. Continue aspirin 81 mg twice a day as recommended by your surgeon to help prevent blood clots Continue to use Teds Seek immediate medical attention if your symptoms reoccur or worsen Please take all medications as instructed on discharge list below. Please call if you have any questions or problems. 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 You are to ambulate with a walker or crutches for approximately 6 weeks. B. You are TOE TOUCH WEIGHT BEARING on your operative lower extremity for at least 6 weeks. C. Wear low heeled shoes with non-slip soles D. Be sure that your floors are free of things that could trip you throw rugs, electrical cords, and small objects. Avoid wet and waxed floors, especially with crutches/walker/cane. E. Try to walk several times a day with rest periods between. F. You may shower 48 hours after surgery and get the incision area wet, but DO NOT soak or submerge incision area in water. (No baths, swimming pools, hot tubs) G. You may have a large, band-aid like dressing over your incision (Aquacel). This will remain on your incision for 7 days, and then can be removed. You CAN shower with this on. If incision is leaking through the dressing, please call the office . H. Do NOT apply soap or any ointment/lotions directly over incision. I. You may use ice as needed to operative site. SPECIAL CARE INSTRUCTIONS: VERY IMPORTANT TO READ AND REVIEW A. You may be at risk for phlebitis or blood clots. a. Wear surgical stockings (SARA hose) for 2 weeks after surgery to improve circulation and reduce swelling. b. Take ASPIRIN 81 mg twice daily for 4 weeks or as directed. This is your blood thinner. c. If you are on Coumadin- you will have daily/weekly bloo d work to monitor your levels. This will be done by either your family physician/anesthetist (if you are on Coumadin chronically) versus your orthopedic surgeon. Expect a phone call the day of or the day after your blood work is drawn to adjust your dose accordingly. B. There are a few signs you need to watch for after you are home. Call [facility] at [phone] if you experience any of the following: a. If you have a temperature of 101 degrees or higher. b. Sudden increase in pain in your hip not relieved by rest or pain medication. c. Any fluid or drainage from the incision; redness of the incision. d. Shortness of breath or chest pain. B. Please call [facility] at [phone] if you have any questions or concerns about your operation or recovery. C. Call your physician if: a. Temperature is greater than 101 degrees (F). b. Pain is not relieved by prescribed pain medications. c. Increase drainage or redness from incision. d. Unanswered questions or concerns. D. Pain Medication: a. You will be prescribed pain medication upon discharge that should last till your first post-operative appointment. b. If you experience nausea and/or skin rash, discontinue this medication and contact our office for an alternative medication. c. Caution- narcotic pain medication can cause constipation. FOLLOW UP VISIT: Please call [facility] at [phone] to schedule a follow up appointment 12-14 days from the date of your surgery date. Pending Studies at Discharge: No Stand-Alone Forms: My [facility] Skilled Items Patient informed of condition?: Yes DNR: No Discharge Level of Care: Skilled Communicable Disease: No Discharge Prognosis: Stable Lines: None Urinary Catheter: No Medications and DC Order Prescriptions: New polyethylene glycol 3350 [Miralax] 17 gram Powder In Packet 17 g PO DAILY PRN (Reason: constipation) Qty: 30 RF: 0 sennosides-docusate sodium [Senokot-S] 8.6-50 mg Tablet 1 tab PO BID PRN (Reason: Constipation) Qty: 60 RF: 0 aspirin 81 mg Tablet,Delayed Release (Dr/Ec) 81 mg PO BID Qty: 60 RF: 0 oxycodone 5 mg Tablet 5 mg PO Q8H PRN (Reason: pain) Qty: 10 RF: 0 cefdinir 300 mg capsule 300 mg PO BID Qty: 6 RF: 0 Continued cyanocobalamin (vitamin B-12) [Vitamin B-12] 500 mcg Tablet 500 mcg PO QAM RF: 0 ferrous sulfate [iron] 325 mg (65 mg iron) Tablet 325 mg PO 3XWK RF: 0 cranberry extract [Cranberry Concentrate] 500 mg capsule 500 mg PO QAM RF: 0 raloxifene 60 mg tablet 60 mg PO QAM RF: 0 cholecalciferol (vitamin D3) 1,250 mcg (50,000 unit) capsule 100,000 unit PO .QSUN RF: 0 potassium chloride 10 mEq tablet extended release 20 meq PO BID RF: 0 miconazole nitrate 2 % cream 1 applic TOPICAL BID RF: 0 diclofenac sodium 1 % gel 2 g TOPICAL QID PRN (Reason: Pain) RF: 0 Discharge Orders: Discharge Order (Routine); Ordered 04/12/22 Ordered By: Ab Leiva Admission Data Admit Date/Time: 04/09/22 12:10 Attending Provider: Ab Leiva Admit Provider: Cristopher Bruner Primary Care Provider: Indu Ambrocio Other Providers: Cristopher Bruner ; Markie Don ; Bhupinder Salas
== END 2022-04-12 16:16 | DRG 481 ==
LOC: ED 09:57 → SUATTDRO 12:10 → EDINP 12:10 → 3N 19:38

== ENCOUNTER 2024-02-05 14:25 | Inpatient (IN) ==
--- NOTE | 2024-02-05 15:03 | ED Triage Note ---
Date of Service February 05, 2024 Provider in Triage Author: Bhupinder Cruz History of Present Illness This patient was briefly evaluated while in triage. An abbreviated physical exam was performed. This patient is a 83-year-old Female who presents to the ED for evaluation of vomiting that started last night. She was prescribed macrobid by [facility] yesterday for a UTI. She had chills and "didn't' feel good" the night before being seen at [facility]. No URI symptoms. No urinary symptoms Physical Exam CONSTITUTIONAL: uncomfortable. actively dry heaving SKIN: pink, warm, dry CARDIAC: regular rate and rhythm RESPIRATORY: in no respiratory distress, lungs clear to auscultation ABDOMEN: no focal tenderness. NO CVA tenderness Initial orders for labs and / or imaging were placed and patient was placed in the waiting area until a bed is available. Please see further documentation for the full ED course.
[2024-02-05] MEDS: SODIUM CHLORIDE 0.9% 500 ML IV ONE ×2 (15:43→19:20)
[2024-02-05] MEDS: ONDANSETRON INJ 2 MG/ML 2 ML VIAL IV STA ×2 (15:43→19:20)
[2024-02-05 16:15] LABS: Basophils # (auto) 0.03 K/uL (0.00-0.20); Basophils % (auto) 0.4 %; Hematocrit (blood only) 39.6 % (37.0-47.0); Hemoglobin 12.9 g/dl (12.0-16.0); Immature Granulocytes # (auto) 0.03 K/uL (0.01-0.20); Immature Granulocytes % (auto) 0.4 %; Lymphocytes # (auto) 0.53 K/uL (1.20-3.40); Lymphocytes % (auto) 6.3 %; Mean Corpuscular Hemoglobin 30.9 pg (25.0-34.0); Mean Corpuscular Hgb Conc 32.6 g/dL (32.0-36.0); Mean Corpuscular Volume 94.7 fL (80.0-100.0); Mean Platelet Volume 9.9 fL (9.4-12.4); Monocytes # (auto) 0.24 K/uL (0.11-0.59); Monocytes % (auto) 2.9 %; Neutrophils # (auto) 7.56 K/uL (1.40-6.50); Platelet Count 286 K/uL (130-400); RDW Coefficient of Variation 13.4 % (11.5-14.5); RDW Standard Deviation 47.2 fL (36.4-46.3); Red Blood Count 4.18 M/uL (4.20-5.40); White Blood Count 8.39 K/ul (4.8-10.8)
[2024-02-05 16:44] LABS: Alanine Aminotransferase 9 U/L (7-52); Albumin Globulin Ratio 1.4 (0.9-2); Albumin Level 4.4 gm/dl (3.4-5.0); Alkaline Phosphatase 104 U/L (34-104); Anion Gap 11 (3-11); Aspartate Aminotransferase 13 U/L (13-39); BUN Creatinine Ratio 21.8 (10-20); Bilirubin,Total 0.6 mg/dl (0.2-1.0); Blood Urea Nitrogen 19 mg/dl (6-23); Carbon Dioxide 20 mmol/L (21-32); Chloride 110 mmol/L (98-107); Est GFR (African American) 71.9 ml/min; Globulin 3.2 gm/dl (2.5-4.0); Glucose 183 mg/dl (70-99(Fasting)); Lipase 12 U/L (11-82); Potassium 3.5 mmol/L (3.5-5.1); Sodium 141 mmol/L (136-145); Total Protein 7.6 gm/dl (6.0-8.3)
[2024-02-05 16:49] LABS: Troponin I High Sensitivity 5.1 pg/ml (0-14)
--- NOTE | 2024-02-05 16:51 | XRay Report ---
XR chest 1V not portable HISTORY: 83 years-old Female chills, fever Acute fever COMPARISON: 04/09/2022 TECHNIQUE: AP view of the chest FINDINGS: Cardiomediastinal and hilar silhouettes are unchanged. Chronic interstitial coarsening. No pneumothor ax, pleural effusion or airspace consolidation. The bones of the chest appear grossly intact. IMPRESSION: No acute process. ACT 112: Negative or not required by law. The above report was generated using voice recognition software. It may contain grammatical, syntax o r spelling errors. Electronically signed by: Emmanuel Hunter M.D. 02/05/2024 4:50 PM
[2024-02-05 17:04] LABS: Adenovirus PCR Not Detected (NotDetected); Bordetella parapertussis PCR Not Detected (NotDetected); Bordetella pertussis PCR Not Detected (NotDetected); Chlamydia pneumoniae PCR Not Detected (NotDetected); Coronavirus 229E PCR Not Detected (NotDetected); Coronavirus CoV-2 (COVID19)PCR Not Detected (NotDetected); Coronavirus HKU1 PCR Not Detected (NotDetected); Coronavirus NL63 PCR Not Detected (NotDetected); Coronavirus OC43PCR Not Detected (NotDetected); Human Metapneumovirus PCR Not Detected (NotDetected); Influenza A PCR Not Detected (NotDetected); Influenza B PCR Not Detected (NotDetected); Mycoplasma pneumoniae PCR Not Detected (NotDetected); Parainfluenza Virus 1 PCR Not Detected (NotDetected); Parainfluenza Virus 2 PCR Not Detected (NotDetected); Parainfluenza Virus 3 PCR Not Detected (NotDetected); Parainfluenza Virus 4 PCR Not Detected (NotDetected); Respiratory Syncytial VirusPCR Not Detected (NotDetected); Rhinovirus/Enterovirus PCR Not Detected (NotDetected)
--- NOTE | 2024-02-05 18:40 | Emergency Department Note ---
History of Present Illness General Chief complaint: Vomiting Time Seen by Provider: 02/05/24 18:17 History of Present Illness Provider Complaint: + nausea and + vomiting; no abdominal pain Onset (ago): day(s) 2 Description of Vomiting: no bilious, no blood-streaked, no bloody or no coffee grounds Description of Diarrhea: no mucousy, no tarry, no blood-streaked or no bloody (bright red) Associated Abdominal Pain: No Relieved By: + none Exacerbated By: + medication Context: + recent antibiotic use (Patient states she was diagnosed with a UTI and started on Macrobid yesterday by an acute care center and that is what caused all of her nausea to begin.); no sick contacts, no alcohol abuse, no trauma, no anticoagulant use, no smoking or no marijuana use Associated symptoms: no myalgias, no chest pain, no fever/chills, no headaches or no shortness of breath Home Medications Medication Instructions Recorded Confirmed Type ferrous sulfate 325 mg (65 mg 325 mg PO 3XWK 07/17/18 04/09/22 History iron) tablet (iron) raloxifene 60 mg tablet 60 mg PO QAM 01/20/20 04/09/22 History cyanocobalamin (vitamin B-12) 500 500 mcg PO QAM 12/20/20 04/09/22 History mcg tablet (Vitamin B-12) cranberry extract 500 mg capsule 500 mg PO QAM 05/08/21 04/09/22 History (Cranberry Concentrate) cholecalciferol (vitamin D3) 1,250 100,000 unit PO .QSUN 04/09/22 04/09/22 History mcg (50,000 unit) capsule diclofenac sodium 1 % topical gel 2 g topical QID PRN Pain 04/09/22 04/09/22 History miconazole nitrate 2 % topical 1 applic topical BID 04/09/22 04/09/22 History cream potassium chloride 10 mEq 20 meq PO BID 04/09/22 04/09/22 History tablet,extended release aspirin 81 mg tablet,delayed 81 mg PO BID #60 tabs 04/12/22 Rx release cefdinir 300 mg capsule 300 mg PO BID #6 caps 04/12/22 Rx oxycodone 5 mg tablet 5 mg PO Q8H PRN pain #10 tabs 04/12/22 Rx polyethylene glycol 3350 17 gram 17 g PO DAILY PRN constipation #30 04/12/22 Rx oral powder packet (Miralax) ea sennosides 8.6 mg-docusate sodium 1 tab PO BID PRN Constipation #60 04/12/22 Rx 50 mg tablet (Senokot-S) tabs cefdinir 300 mg capsule 300 mg PO BID 10 days #20 caps 02/05/24 Rx ondansetron 4 mg disintegrating 4 mg PO Q8H PRN nausea and 02/05/24 Rx tablet vomiting #30 tabs Allergies Allergy/AdvReac Type Severity Reaction Status Date / Time influenza virus vaccine, Allergy Severe Gillean Verified 04/09/22 12:40 specific Bethel Syndrome Sulfa (Sulfonamide Allergy Unknown Unknown Verified 04/09/22 12:40 Antibiotics) cephalexin AdvReac Nausea Verified 04/09/22 12:40 Past Med/Surg History Medical History Rectal abscess Kidney stones Anemia chronic 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 Berman 09/2021 History of hip surgery right intertrochanteric femoral nailing History of brain surgery 1998; benign tumor excision Hx of hysterectomy Hx of lumpectomy Right breast Family History Mother Macular degeneration Father Kidney stone Diabetes Social History Smoking Status: Never smoker Second Hand Exposure: No; Do You Dip or Chew Tobacco: No; Hx Alcohol Use: No Hx Substance Use: No Preferred Language: Stateless Communication Ability: Effective Visual Impairment: No Limitations Franchise Consultant Required: No Beliefs That Will Affect Care: None marital status: / Current Living Situation: Spouse Current Living Situation Comment: lives at home independently Feels Safe at Home: Yes Assistive Devices: None Physical Exam 2 Vital Signs: Vital Signs - 24 hr 02/05/24 15:01 02/05/24 18:41 02/05/24 18:41 Temperature 35.9 C L Temperature Source Temporal Artery Sc an Pulse Rate 88 Pulse Rate [Apical ] 90 Pulse Rhythm Regular Pulse Strength Normal Respiratory Rate 20 18 Respiratory Effort / Characteristics Non-Labored Sponta neous Respiratory Depth Normal Blood Pressure 157/87 H Blood Pressure [Le ft Arm] 149/99 H Blood Pressure Joelle n 110 Blood Pressure Joelle n [Left Arm] 115 Pulse Oximetry 97 98 98 Oxygen Delivery Me thod Room Air Room Air Oxygen Flow Rate Sepsis Recent Feve r Within 48 Hours No Sepsis New/Unexpla ined Change in Men juancho Status N/A Sepsis Action Take n by Nursing No Action Required Oxygen Flow Rate - Titration Pulse Oximetry Pos t Tiitration 02/05/24 21:00 02/05/24 21:22 Temperature Temperature Source Pulse Rate Pulse Rate [Apical ] 82 Pulse Rhythm Pulse Strength Respiratory Rate 16 Respiratory Effort / Characteristics Respiratory Depth Blood Pressure Blood Pressure [Le ft Arm] 147/87 H Blood Pressure Joelle n Blood Pressure Joelle n [Left Arm] 107 Pulse Oximetry 91 89 L Oxygen Delivery Me thod Room Air Room Air Nasal Can nula Oxygen Flow Rate 0 Sepsis Recent Feve r Within 48 Hours Sepsis New/Unexpla ined Change in Men juancho Status Sepsis Action Take n by Nursing Oxygen Flow Rate - Titration 2 Pulse Oximetry Pos t Tiitration 96 Physical Exam: Physical Exam GENERAL: She is oriented to person, place, and time. She appears well-developed and well-nourished. She does not appear distressed. HENT: Exam performed. -Head: Normocephalic and atraumatic. -Right Ear: External ear normal. No mastoid erythema -Left Ear: External ear normal. No mastoid erythema -Mouth/Throat: The oropharynx is clear and moist. No trismus in the jaw. No dental abscesses or uvula swelling. No oropharyngeal exudate or tonsillar abscesses. EYES: Conjunctivae and EOM are normal.Right eye exhibits no discharge. Left eye exhibits no discharge. No scleral icterus. NECK: Normal range of motion. Neck supple. No JVD present. No tracheal deviation and normal range of motion present. CV: Normal rate, regular rhythm, normal heart sounds and intact distal pulses. There is no peripheral edema. Palpable radial pulses bue. PULM/CHEST: Effort normal and breath sounds normal. No respiratory distress. No stridor. She has no wheezes. She has no rales. -Chest Wall: She exhibits no tenderness. ABD: The abdomen is soft. Bowel sounds are normal. She has no distension. No mass is present. There is no tenderness. There is no rebound, no guarding, no Lamb's sign and no tenderness at McBurney's point. Rovsig negative MUSC/SKEL: Normal range of motion. There is no peripheral edema, tenderness or deformity. NEURO: Motor and sensation grossly intact. SKIN: Skin is warm and dry. She is not diaphoretic. PSYCH: She has a normal mood and affect. Behavior is normal. Judgment and thought content normal. Course Course 1816: The patient was evaluated in room A11A. A complete history and physical exam was performed Cardiac monitoring: An order was placed for continuous cardiac monitoring. The monitor shows a rate of 70 with sinus rhythm interpreted by me 1945: Vital signs stable. Labs within normal limits. Serial abdominal exams no pain on palpation of the abdomen. Patient reports her nausea is better and is tolerating p.o. Patient be discharged with prescription antiemetics and follow- up PCP. Patient also be started on a different antibiotic cefdinir which she tolerated in the emergency department. DISCHARGE - Plan of care discussed with patient and questions answered. The patient was given both verbal and printed discharge instructions. The patient verbalized understanding and ability to comply. The patient is to seek outpatient follow up as noted in the discharge instructions. The patient verbalized understanding and ability to comply. The patient is discharged in stable condition. The patient was instructed to return for worsening symptoms. 2014: At time of discharge nursing informs me but that the patient started vomiting again. Patient be given Reglan Benadryl Rocephin IV and we will obtain CT of the abdomen pelvis. 2209: Vital signs stable. Imaging shows changing center consistent with pyelonephritis. Given the patient's persistent nausea and vomiting and CT findings of pyelonephritis patient will be admitted to the [facility] service discussed case with Dr. Burt who will evaluate the patient for admission. Administered Medications Discontinued Medications Cefdinir (Cefdinir 300 Mg Cap) 300 mg PO ONE STA; Protocol Stop: 02/05/24 19:14 Last Admin: 02/05/24 19:20 Dose: 300 mg Documented By: YENIFER Diphenhydramine HCl (Diphenhydramine 50 Mg/Ml Vial) 12.5 mg IV NOW STA Stop: 02/05/24 20:32 Last Admin: 02/05/24 20:59 Dose: 12.5 mg Documented By: YENIFER Sodium Chloride (Nss) 500 mls @ 999 mls/hr IV .Q31M ONE Stop: 02/05/24 15:35 Last Infusion: 02/05/24 19:12 Dose: Infused Documented By: Admin: 02/05/24 15:43 Dose: 999 mls/hr Documented By: SASKIA Sodium Chloride (Nss) 500 mls @ 999 mls/hr IV .Q31M ONE Stop: 02/05/24 19:16 Last Infusion: 02/05/24 20:07 Dose: Infused Documented By: Admin: 02/05/24 19:20 Dose: 999 mls/hr Documented By: YENIFER Ceftriaxone Sodium (Rocephin) 1,000 mg in 50 mls @ 100 mls/hr IV NOW STA Stop: 02/05/24 21:00 Last Infusion: 02/05/24 21:30 Dose: Infused Documented By: Admin: 02/05/24 20:59 Dose: 100 mls/hr Documented By: YENIFER Ioversol (Optiray 320 100ml) 91 ml IV ONCE ONE Stop: 02/05/24 20:49 Last Admin: 02/05/24 20:48 Dose: 91 ml Documented By: SULAIMAN Metoclopramide HCl (Metoclopramide Hcl Inj 5 Mg/Ml 2 Ml Vial) 2.5 mg IV ONE ONE Stop: 02/05/24 20:32 Last Admin: 02/05/24 20:59 Dose: 2.5 mg Documented By: YENIFER Ondansetron HCl (Ondansetron Inj 2 Mg/Ml 2 Ml Vial) 4 mg IV NOW STA Stop: 02/05/24 15:06 Last Admin: 02/05/24 15:43 Dose: 4 mg Documented By: SASKIA Ondansetron HCl (Ondansetron Inj 2 Mg/Ml 2 Ml Vial) 4 mg IV NOW STA Stop: 02/05/24 18:35 Last Admin: 02/05/24 19:20 Dose: 4 mg Documented By: YENIFER Medical Decision Making Laboratory Data Attestation: I reviewed the patient's lab results. 02/05/24 15:41 02/05/24 15:41 Lab Results 02/05/24 02/05/24 02/05/24 Range/Units 15:41 15:42 Unknown WBC 8.39 (4.8-10.8) K/ul RBC 4.18 L (4.20-5.40) M/uL Hgb 12.9 (12.0-16.0) g/dl Hct 39.6 (37.0-47.0) % MCV 94.7 (80.0-100.0) fL MCH 30.9 (25.0-34.0) pg MCHC 32.6 (32.0-36.0) g/dL RDW Std Deviation 47.2 H (36.4-46.3) fL RDW Coeff of Addie 13.4 (11.5-14.5) % Plt Count 286 (130-400) K/uL MPV 9.9 (9.4-12.4) fL Immature Gran % (Auto) 0.4 % Neut % (Auto) 90.0 % Lymph % (Auto) 6.3 % [place] % (Auto) 2.9 % Eos % (Auto) 0.0 % Baso % (Auto) 0.4 % Neut # (Auto) 7.56 H (1.40-6.50) K/uL Lymph # (Auto) 0.53 L (1.20-3.40) K/uL [place] # (Auto) 0.24 (0.11-0.59) K/uL Eos # (Auto) 0.00 (0.00-0.50) K/uL Baso # (Auto) 0.03 (0.00-0.20) K/uL Immature Gran # (Auto) 0.03 (0.01-0.20) K/uL Sodium 141 (136-145) mmol/L Potassium 3.5 (3.5-5.1) mmol/L Chloride 110 H (98-107) mmol/L Carbon Dioxide 20 L (21-32) mmol/L Anion Gap 11 (3-11) BUN 19 (6-23) mg/dl Creatinine 0.87 (0.6-1.2) mg/dl Est Cr Clr Drug Dosing Not Reportable Est GFR ( Amer) 71.9 ml/min Est GFR (Non-Af Amer) 62.0 ml/min BUN/Creatinine Ratio 21.8 H (10-20) Glucose 183 H (70-99(Fasting)) mg/dl Calcium 9.0 (8.6-10.3) mg/dl Total Bilirubin 0.6 (0.2-1.0) mg/dl AST 13 (13-39) U/L ALT 9 (7-52) U/L Alkaline Phosphatase 104 (34-104) U/L Troponin I High Sens 5.1 (0-14) pg/ml Total Protein 7.6 (6.0-8.3) gm/dl Albumin 4.4 (3.4-5.0) gm/dl Globulin 3.2 (2.5-4.0) gm/dl Albumin/Globulin Ratio 1.4 (0.9-2) Lipase 12 (11-82) U/L Urine Color Dark Yellow Urine Appearance Cloudy A (Clear) Urine pH 6.0 (4.5-7.5) Ur Specific [place] 1.016 (1.000-1.030) Urine Protein 2+ H (Negative) Urine Glucose (UA) Negative (Negative) Urine Ketones 2+ H (Negative) Urine Blood 3+ H (Negative) Urine Nitrite Negative (Negative) Urine Bilirubin Negative (Negative) Urine Urobilinogen Negative (Negative) Ur Leukocyte Esterase 2+ H (Negative) Urine WBC (Auto) >30 H (0-5) /hpf Urine RBC (Auto) >30 H (0-4) /hpf U Hyaline Cast (Auto) 1-5 (0-5) /lpf U Epithel Cells (Auto) >30 H (0-5) /lpf Urine Bacteria (Auto) Negative (Negative) Adenovirus (PCR) Not Detected (NotDetected) B. pertussis DNA (PCR) Not Detected (NotDetected) B.parapertussis DNA PCR Not Detected (NotDetected) C. pneumoniae DNA (PCR) Not Detected (NotDetected) Coronavirus OC43 (PCR) Not Detected (NotDetected) Coronavirus HKU1 (PCR) Not Detected (NotDetected) Coronavirus 229E (PCR) Not Detected (NotDetected) SARS-CoV-2 (PCR) Not Detected (NotDetected) Coronavirus NL63 (PCR) Not Detected (NotDetected) Human Metapneumovir PCR Not Detected (NotDetected) Influenza Type A (PCR) Not Detected (NotDetected) Influenza Type B (PCR) Not Detected (NotDetected) M. pneumoniae (PCR) Not Detected (NotDetected) Parainfluenza 1 (PCR) Not Detected (NotDetected) Parainfluenza 2 (PCR) Not Detected (NotDetected) Parainfluenza 3 (PCR) Not Detected (NotDetected) Parainfluenza 4 (PCR) Not Detected (NotDetected) RSV (PCR) Not Detected (NotDetected) Entero/Rhino (PCR) Not Detected (NotDetected) Imaging Data Attestation: I personally reviewed and interpreted this imaging study as follows: My Impression: Chest x-ray negative. Airway clear. No pneumothorax. No consolidation. No cardiomegaly or cephalization.. No free air under the diaphragm. No fractures of the skeletal structures. Radiologist's Impression: Chest X-Ray 02/05/24 15:05 XR chest 1V not portable HISTORY: 83 years-old Female chills, fever Acute fever COMPARISON: 04/09/2022 TECHNIQUE: AP view of the chest FINDINGS: Cardiomediastinal and hilar silhouettes are unchanged. Chronic interstitial coarsening. No pneumothorax, pleural effusion or airspace consolidation. The bones of the chest appear grossly intact. IMPRESSION: No acute process. ACT 112: Negative or not required by law. The above report was generated using voice recognition software. It may contain grammatical, syntax or spelling errors. Electronically signed by: Emmanuel Hunter M.D. 02/05/2024 4:50 PM Chest X-Ray 02/05/24 15:05 XR chest 1V not portable HISTORY: 83 years-old Female chills, fever Acute fever COMPARISON: 04/09/2022 TECHNIQUE: AP view of the chest FINDINGS: Cardiomediastinal and hilar silhouettes are unchanged. Chronic interstitial coarsening. No pneumothorax, pleural effusion or airspace consolidation. The bones of the chest appear grossly intact. IMPRESSION: No acute process. ACT 112: Negative or not required by law. The above report was generated using voice recognition software. It may contain grammatical, syntax or spelling errors. Electronically signed by: Emmanuel Hunter M.D. 02/05/2024 4:50 PM Abdomen/Pelvis CT 02/05/24 20:14 Exam(s): CT ABDOMEN + PELVIS With Contrast IV Amt: 91 ml opti 320 EXAM: CT Abdomen and Pelvis With Intravenous Contrast CLINICAL HISTORY: abd rizzo nv. TECHNIQUE: Axial computed tomography images of the abdomen and pelvis with intravenous contrast. CTDI is 19.24 mGy and DLP is 926.99 mGy-cm. Automated exposure control was utilized for the study. A dose lowering technique was utilized adhering to the principles of ALARA. CONTRAST: Patient received 91 ml opti 320 of IV contrast COMPARISON: CT abdomen and pelvis without contrast dated 02/23/2021 FINDINGS: Lung bases: Unremarkable. No mass. No consolidation. ABDOMEN: Liver: Unremarkable. No mass. Gallbladder and bile ducts: Unremarkable. No calcified stones. No ductal dilation. Pancreas: Unremarkable. No mass. No ductal dilation. Spleen: Unremarkable. No splenomegaly. Adrenals: Unremarkable. No mass. Kidneys and ureters: There are multiple scattered nephrolithiasis noted throughout the left kidney with the largest stone identified in the renal pelvis measuring 17 mm in long axis. There is mild left hydronephrosis. The previously noted left double-J ureteral stent has been removed from the previous examination. However, there is hyperenhancement and mucosal prominence of the proximal urothelium, primarily involving the left renal pelvis and proximal ureter. No ureteral stones noted bilaterally. There are subcentimeter nephrolithiasis noted on the right. Multiple scattered cortical cysts noted on the right are all subcentimeter in size. There is a probable parapelvic cyst on the left measuring 1 cm. Stomach and bowel: No evidence for bowel obstruction. Mucosal prominence of the decompressed transverse, descending and sigmoid colon is more prominent than on the previous examination. In addition, there is mild fluid in the distal rectosigmoid. Similar laxity and outpouching of the linea alba involving the pelvis. No bowel herniation. PELVIS: Appendix: No findings to suggest acute appendicitis. Bladder: Unremarkable. No mass. Reproductive: Status post hysterectomy. ABDOMEN and PELVIS: Intraperitoneal space: Unremarkable. No free air. No significant fluid collection. Bones/joints: No acute fracture. No dislocation. Soft tissues: Unremarkable. Vasculature: Atherosclerotic calcification of the aorta without dissection or aneurysm. Lymph nodes: Unremarkable. No enlarged lymph nodes. IMPRESSION: 1. There are multiple scattered nephrolithiasis noted throughout the left kidney with the largest stone identified in the renal pelvis measuring 17 mm in long axis. There is mild left hydronephrosis. The previously noted left double-J ureteral stent has been removed from the previous examination. However, there is hyperenhancement and mucosal prominence of the proximal urothelium, primarily involving the left renal pelvis and proximal ureter. Findings suggest inflammation/infection of the left urothelium. Please correlate with urinalysis, as appropriate. 2. No evidence for bowel obstruction. Mucosal prominence of the decompressed transverse, descending and sigmoid colon is more prominent than on the previous examination. In addition, there is mild fluid in the distal rectosigmoid. Findings are suspicious for inflammatory or infectious colitis with potential diarrheal disease. Please correlate clinically. Electronically signed by: Clinton Murcia MD 02/05/24 21:38 PM ECG Data Attestation: I personally reviewed and interpreted this ECG as follows: Rate (beats per minute): 76 Rhythm: normal sinus Findings: no ST depression, no ST elevation or no prolonged QT Additional Comments: QRS 66 MDM Narrative 1817: The patient was evaluated in room A11A. A complete history and physical exam was performed Cardiac monitoring: An order was placed for continuous cardiac monitoring. The monitor shows a rate of 70 with sinus rhythm interpreted by me 1945: Vital signs stable. Labs within normal limits. Serial abdominal exams no pain on palpation of the abdomen. Patient reports her nausea is better and is tolerating p.o. Patient be discharged with prescription antiemetics and follow- up PCP. Patient also be started on a different antibiotic cefdinir which she tolerated in the emergency department. DISCHARGE - Plan of care discussed with patient and questions answered. The patient was given both verbal and printed discharge instructions. The patient verbalized understanding and ability to comply. The patient is to seek outpatient follow up as noted in the discharge instructions. The patient verbalized understanding and ability to comply. The patient is discharged in stable condition. The patient was instructed to return for worsening symptoms. 2015: At time of discharge nursing informs me but that the patient started vomiting again. Patient be given Reglan Benadryl Rocephin IV and we will obtain CT of the abdomen pelvis. 2210: Vital signs stable. Imaging shows changing center consistent with pyelonephritis. Given the patient's persistent nausea and vomiting and CT findings of pyelonephritis [facility] case with Dr. Burt who will evaluate the patient for admission. Impression & Plan Acute pyelonephritis, Intractable nausea and vomiting Discharge Plan Visit Data Chief Complaint: Vomiting ED Provider: Jean Claude Mclain Discharge Problem: Acute pyelonephritis, Intractable nausea and vomiting Patient Disposition: Being Evaluated by Hospitalist Discharge Instructions Krames/Other Patient Handouts: ED Vomiting (Adult), ED [facility] UTI Forms Stand Alone Forms: [facility], Important Visit Information Prescriptions Prescriptions: New ondansetron 4 mg tablet,disintegrating 4 mg PO Q8H PRN (Reason: nausea and vomiting) Qty: 30 0RF cefdinir 300 mg capsule 300 mg PO BID 10 Days Qty: 20 0RF No Action cyanocobalamin (vitamin B-12) [Vitamin B-12] 500 mcg Tablet 500 mcg PO QAM ferrous sulfate [iron] 325 mg (65 mg iron) Tablet 325 mg PO 3XWK Rx Instructions: take on Mondays, Wednesdays, and Fridays cranberry extract [Cranberry Concentrate] 500 mg capsule 500 mg PO QAM raloxifene 60 mg tablet 60 mg PO QAM cholecalciferol (vitamin D3) 1,250 mcg (50,000 unit) capsule 100,000 unit PO .QSUN potassium chloride 10 mEq tablet extended release 20 meq PO BID miconazole nitrate 2 % cream 1 applic TOPICAL BID Rx Instructions: APPLT TO RECTUM diclofenac sodium 1 % gel 2 g TOPICAL QID PRN (Reason: Pain) polyethylene glycol 3350 [Miralax] 17 gram Powder In Packet 17 g PO DAILY PRN (Reason: constipation) Qty: 30 0RF sennosides-docusate sodium [Senokot-S] 8.6-50 mg Tablet 1 tab PO BID PRN (Reason: Constipation) Qty: 60 0RF aspirin 81 mg Tablet,Delayed Release (Dr/Ec) 81 mg PO BID Qty: 60 0RF oxycodone 5 mg Tablet 5 mg PO Q8H PRN (Reason: pain) Qty: 10 0RF cefdinir 300 mg capsule 300 mg PO BID Qty: 6 0RF Referrals Referrals: Indu Ambrocio [Primary Care Provider] - (Follow-up in 1-7 days.) Discharge Problem:
[2024-02-05 18:56] LABS: Appearance Urine Cloudy (Clear); Bacteria Urine Automated Negative (Negative); Bilirubin Urine Negative (Negative); Blood Urine 3+ (Negative); Color Urine Dark Yellow; Epithelial Cell Urine Auto >30 /lpf (0-5); Glucose Urine UA Negative (Negative); Ketones Urine 2+ (Negative); Leukocyte Esterase Urine 2+ (Negative); Nitrite Urine Negative (Negative); Protein Urine 2+ (Negative); RBC Urine Automated >30 /hpf (0-4); Specific Gravity Urine 1.016 (1.000-1.030); Urobilinogen Urine Negative (Negative); WBC Urine Automated >30 /hpf (0-5)
[2024-02-05] MEDS: CEFDINIR 300 MG CAP PO STA (19:20)
[2024-02-05] MEDS: OPTIRAY 320 100ml IV ONE (20:48)
[2024-02-05] MEDS: cefTRIAXone SODIUM 1,000 MG/50 ML BAG IV STA (20:59)
[2024-02-05] MEDS: diphenhydrAMINE 50 MG/ML VIAL IV STA (20:59)
[2024-02-05] MEDS: METOCLOPRAMIDE HCL INJ 5 MG/ML 2 ML VIAL IV ONE (20:59)
--- NOTE | 2024-02-05 21:39 | CT Scan Report ---
Exam(s): CT ABDOMEN + PELVIS With Contrast IV Amt: 91 ml opti 320 EXAM: CT Abdomen and Pelvis With Intravenous Contrast CLINICAL HISTORY: abd rizzo nv. TECHNIQUE: Axial computed tomography images of the abdomen and pelvis with intravenous contrast. CTDI is 19.24 mGy and DLP is 926.99 mGy-cm. Automated exposure control was utilized for the study. A dose lowering technique was utilized adhering to the principles of ALARA. CONTRAST: Patient received 91 ml opti 320 of IV contrast COMPARISON: CT abdomen and pelvis without contrast dated 02/23/2021 FINDINGS: Lung bases: Unremarkable. No mass. No consolidation. ABDOMEN: Liver: Unremarkable. No mass. Gallbladder and bile ducts: Unremarkable. No calcified stones. No ductal dilation. Pancreas: Unremarkable. No mass. No ductal dilation. Spleen: Unremarkable. No splenomegaly. Adrenals: Unremarkable. No mass. Kidneys and ureters: There are multiple scattered nephrolithiasis noted throughout the left kidney with the largest stone identified in the renal pelvis measuring 17 mm in long axis. There is mild left hydronephrosis. The previously noted left double-J ureteral stent has been removed from the previous examination. However, there is hyperenhancement and mucosal prominence of the proximal urothelium, primarily involving the left renal pelvis and proximal ureter. No ureteral stones noted bilaterally. There are subcentimeter nephrolithiasis noted on the right. Multiple scattered cortical cysts noted on the right are all subcentimeter in size. There is a probable parapelvic cyst on the left measuring 1 cm. Stomach and bowel: No evidence for bowel obstruction. Mucosal prominence of the decompressed transverse, descending and sigmoid colon is more prominent than on the previous examination. In addition, there is mild fluid in the distal rectosigmoid. Similar laxity and outpouching of the linea alba involving the pelvis. No bowel herniation. PELVIS: Appendix: No findings to suggest acute appendicitis. Bladder: Unremarkable. No mass. Reproductive: Status post hysterectomy. ABDOMEN and PELVIS: Intraperitoneal space: Unremarkable. No free air. No significant fluid collection. Bones/joints: No acute fracture. No dislocation. Soft tissues: Unremarkable. Vasculature: Atherosclerotic calcification of the aorta without dissection or aneurysm. Lymph nodes: Unremarkable. No enlarged lymph nodes. IMPRESSION: 1. There are multiple scattered nephrolithiasis noted throughout the left kidney with the largest stone identified in the renal pelvis measuring 17 mm in long axis. There is mild left hydronephrosis. The previously noted left double-J ureteral stent has been removed from the previous examination. However, there is hyperenhancement and mucosal prominence of the proximal urothelium, primarily involving the left renal pelvis and proximal ureter. Findings suggest inflammation/infection of the left urothelium. Please correlate with urinalysis, as appropriate. 2. No evidence for bowel obstruction. Mucosal prominence of the decompressed transverse, descending and sigmoid colon is more prominent than on the previous examination. In addition, there is mild fluid in the distal rectosigmoid. Findings are suspicious for inflammatory or infectious colitis with potential diarrheal disease. Please correlate clinically. Electronically signed by: Clinton Murcia MD 02/05/24 21:38 PM
--- NOTE | 2024-02-06 00:21 | History & Physical Report ---
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 Patient states on Friday she had chills. States on Friday she was not feeling well and went to [facility] where she was prescribed Macrobid for UTI. But she was having a lot of nausea vomiting unable to take any p.o. medications and came to the ER. In the ED she was given Rocephin and and then planned to discharge on Omnicef but again she developed severe nausea vomiting and CAT scan was done which is showing pyonephritis and also colitis. Denies any fevers. No abdominal pain. She states having diarrhea daily since Guillain-Sandra syndrome. No burning micturition. No hematuria. No chest pain or shortness of breath. No headache. Vision is okay. No runny nose. No sore throat. No cough. Currently resting comfortably and hemodynamically stable.Somewhat hard to hear. Acute pyonephritis Left kidney nephrolithiasis Mild left hydronephrosis Possible infection of left urothelium Placed on Rocephin Will follow cultures Urology follow-up Colitis On CT scan Will consult GI Nausea and vomiting Mostly from above Will keep n.p.o. 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 Patient states on Friday she had chills. States on Friday she was not feeling well and went to [facility] where she was prescribed Macrobid for UTI. But she was having a lot of nausea vomiting unable to take any p.o. medications and came to the ER. In the ED she was given Rocephin and and then planned to discharge on Omnicef but again she developed severe nausea vomiting and CAT scan was done which is showing pyonephritis and also colitis. Denies any fevers. No abdominal pain. She states having diarrhea daily since Guillain-Sandra syndrome. No burning micturition. No hematuria. No chest pain or shortness of breath. No headache. Vision is okay. No runny nose. No sore throat. No cough. Currently resting comfortably and hemodynamically stable.Somewhat hard to hear. Past medical history. As mentioned above Past surgical history. Appendectomy, brain surgery for benign tumor excision, history of colonoscopy, cystoscopy multiple times, laser lithotripsy, right intertrochanteric femoral nailing, tooth extraction, history of total knee replacement bilateral, history of hysterectomy, history of right breast lumpectomy. Family history. Mother had macular degeneration, father had kidney stones and diabetes Social history no smoking. No alcohol use. No drug use. Allergies Allergy/AdvReac Type Severity Reaction Status Date / Time influenza virus vaccine, Allergy Severe Gillean Verified 02/05/24 22:45 specific [place] Syndrome Sulfa (Sulfonamide Allergy Unknown Unknown Verified 02/05/24 22:45 Antibiotics) cephalexin AdvReac Nausea Verified 02/05/24 22:45 Home Medications Medication Instructions Recorded Confirmed Type ferrous sulfate 325 mg (65 mg 325 mg PO 3XWK 07/17/18 02/05/24 History iron) tablet (iron) raloxifene 60 mg tablet 60 mg PO QAM 01/20/20 02/05/24 History cyanocobalamin (vitamin B-12) 500 500 mcg PO QAM 12/20/20 02/05/24 History mcg tablet (Vitamin B-12) cranberry extract 500 mg capsule 0 mg PO QAM 05/08/21 02/05/24 History (Cranberry Concentrate) potassium chloride 10 mEq 20 meq PO BID 04/09/22 02/05/24 History tablet,extended release polyethylene glycol 3350 17 gram 17 g PO DAILY PRN constipation #30 04/12/22 02/05/24 Rx oral powder packet (Miralax) ea sennosides 8.6 mg-docusate sodium 1 tab PO BID PRN Constipation #60 04/12/22 02/05/24 Rx 50 mg tablet (Senokot-S) tabs acetaminophen 500 mg tablet 1,000 mg PO Q8 PRN Pain 02/05/24 02/05/24 History cefdinir 300 mg capsule 300 mg PO BID 10 days #20 caps 02/05/24 Rx nitrofurantoin 1 cap PO BID 02/05/24 02/05/24 History monohydrate/macrocrystals 100 mg capsule (Macrobid) ondansetron 4 mg disintegrating 4 mg PO Q8H PRN nausea and 02/05/24 Rx tablet vomiting #30 tabs Past Med/Surg History Medical History Rectal abscess Kidney stones Anemia chronic Hx of Guillain-[place] syndrome after flu shot (1998)- mild residual LE neuropathy Osteoarthritis Hx of breast cancer right breast (2000) s/p radiation 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 Seizure x1 episode s/p benign brain tumor excision (1998) Surgical History History of tooth extraction History of colonoscopy History of cystoscopy multiple cystoscopy, right ureteronephroscopy, laser litho: 02/15/20: LMA#5 at [facility] cystoscopy, left stent placement: 12/21/20: MAC sedation at [facility] History of appendectomy History of total knee replacement Right & Left, L done by Dr. Berman 09/2021 History of hip surgery right intertrochanteric femoral nailing History of brain surgery 1998; benign tumor excision Hx of hysterectomy Hx of lumpectomy Right breast Family History Mother Macular degeneration Father Kidney stone Diabetes Social History Smoking Status: Never smoker Second Hand Exposure: No; Do You Dip or Chew Tobacco: No; Hx Alcohol Use: No Hx Substance Use: No Preferred Language: Kazakh Communication Ability: Effective Visual Impairment: No Limitations Last Cleaner Required: No Beliefs That Will Affect Care: None marital status: / Current Living Situation: Family Current Living Situation Comment: son Other Information That Helps Us Care for You: No Feels Safe at Home: Yes Safety Concerns: Feels Safe At This Time Assistive Devices: Denture - Upper, Denture - Lower and Hearing Aid - Bilateral Review of Systems Review of Systems: All systems reviewed & are unremarkable except as noted in HPI & below Physical Exam Physical Exam: General- Not in distress Head- atraumatic Eyes- PERRL. ENT- oropharynx clear Neck- supple, no JVD. Lungs- clear to auscultation no wheezing or crackles Heart- regular rhythm; no murmur, no gallop. Abdomen- normal bowel sounds, soft, nontender, no distension. Extremities- no pretibial edema, no erythema seen Neuro- alert, oriented ; PERRL, no facial palsy; no dysarthria; moves extremities Results & Data Results & Data Vital Signs (Past 12 Hours) Vital Signs Temp Pulse Pulse Resp BP BP Pulse Ox 02/05/24 23:00 70 18 130/75 96 02/05/24 21:22 89 L 02/05/24 21:00 82 16 147/87 H 91 02/05/24 18:41 98 02/05/24 18:41 90 18 149/99 H 98 02/05/24 15:01 35.9 C L 88 20 157/87 H 97 O2 Del Method O2 Flow Rate 02/05/24 23:00 Nasal Cannula 2 02/05/24 21:22 Room Air, Nasal Cannula 0 02/05/24 21:00 Room Air 02/05/24 18:41 02/05/24 18:41 Room Air 02/05/24 15:01 Room Air Diagnostic Findings Laboratory Results WBC 8.39 K/ul (4.8-10.8) 02/05/24 15:41 RBC 4.18 M/uL (4.20-5.40) L 02/05/24 15:41 Hgb 12.9 g/dl (12.0-16.0) 02/05/24 15:41 Hct 39.6 % (37.0-47.0) 02/05/24 15:41 MCV 94.7 fL (80.0-100.0) 02/05/24 15:41 MCH 30.9 pg (25.0-34.0) 02/05/24 15:41 MCHC 32.6 g/dL (32.0-36.0) 02/05/24 15:41 RDW Std Deviation 47.2 fL (36.4-46.3) H 02/05/24 15:41 RDW Coeff of Addie 13.4 % (11.5-14.5) 02/05/24 15:41 Plt Count 286 K/uL (130-400) 02/05/24 15:41 MPV 9.9 fL (9.4-12.4) 02/05/24 15:41 Immature Gran % (Auto) 0.4 % 02/05/24 15:41 Neut % (Auto) 90.0 % 02/05/24 15:41 Lymph % (Auto) 6.3 % 02/05/24 15:41 Garden % (Auto) 2.9 % 02/05/24 15:41 Eos % (Auto) 0.0 % 02/05/24 15:41 Baso % (Auto) 0.4 % 02/05/24 15:41 Neut # (Auto) 7.56 K/uL (1.40-6.50) H 02/05/24 15:41 Lymph # (Auto) 0.53 K/uL (1.20-3.40) L 02/05/24 15:41 Garden # (Auto) 0.24 K/uL (0.11-0.59) 02/05/24 15:41 Eos # (Auto) 0.00 K/uL (0.00-0.50) 02/05/24 15:41 Baso # (Auto) 0.03 K/uL (0.00-0.20) 02/05/24 15:41 Immature Gran # (Auto) 0.03 K/uL (0.01-0.20) 02/05/24 15:41 Sodium 141 mmol/L (136-145) 02/05/24 15:41 Potassium 3.5 mmol/L (3.5-5.1) 02/05/24 15:41 Chloride 110 mmol/L (98-107) H 02/05/24 15:41 Carbon Dioxide 20 mmol/L (21-32) L 02/05/24 15:41 Anion Gap 11 (3-11) 02/05/24 15:41 BUN 19 mg/dl (6-23) 02/05/24 15:41 Creatinine 0.87 mg/dl (0.6-1.2) 02/05/24 15:41 Est Cr Clr Drug Dosing Not Reportable 02/05/24 15:41 Est GFR ( Amer) 71.9 ml/min 02/05/24 15:41 Est GFR (Non-Af Amer) 62.0 ml/min 02/05/24 15:41 BUN/Creatinine Ratio 21.8 (10-20) H 02/05/24 15:41 Glucose 183 mg/dl (70-99(Fasting)) H 02/05/24 15:41 Calcium 9.0 mg/dl (8.6-10.3) 02/05/24 15:41 Total Bilirubin 0.6 mg/dl (0.2-1.0) 02/05/24 15:41 AST 13 U/L (13-39) 02/05/24 15:41 ALT 9 U/L (7-52) 02/05/24 15:41 Alkaline Phosphatase 104 U/L (34-104) 02/05/24 15:41 Troponin I High Sens 5.1 pg/ml (0-14) 02/05/24 15:41 Total Protein 7.6 gm/dl (6.0-8.3) 02/05/24 15:41 Albumin 4.4 gm/dl (3.4-5.0) 02/05/24 15:41 Globulin 3.2 gm/dl (2.5-4.0) 02/05/24 15:41 Albumin/Globulin Ratio 1.4 (0.9-2) 02/05/24 15:41 Lipase 12 U/L (11-82) 02/05/24 15:41 Urine Color Dark Yellow 02/05/24 Unknown Urine Appearance Cloudy (Clear) A 02/05/24 Unknown Urine pH 6.0 (4.5-7.5) 02/05/24 Unknown Ur Specific [place] 1.016 (1.000-1.030) 02/05/24 Unknown Urine Protein 2+ (Negative) H 02/05/24 Unknown Urine Glucose (UA) Negative (Negative) 02/05/24 Unknown Urine Ketones 2+ (Negative) H 02/05/24 Unknown Urine Blood 3+ (Negative) H 02/05/24 Unknown Urine Nitrite Negative (Negative) 02/05/24 Unknown Urine Bilirubin Negative (Negative) 02/05/24 Unknown Urine Urobilinogen Negative (Negative) 02/05/24 Unknown Ur Leukocyte Esterase 2+ (Negative) H 02/05/24 Unknown Urine WBC (Auto) >30 /hpf (0-5) H 02/05/24 Unknown Urine RBC (Auto) >30 /hpf (0-4) H 02/05/24 Unknown U Hyaline Cast (Auto) 1-5 /lpf (0-5) 02/05/24 Unknown U Epithel Cells (Auto) >30 /lpf (0-5) H 02/05/24 Unknown Urine Bacteria (Auto) Negative (Negative) 02/05/24 Unknown Adenovirus (PCR) Not Detected (NotDetected) 02/05/24 15:42 B. pertussis DNA (PCR) Not Detected (NotDetected) 02/05/24 15:42 B.parapertussis DNA PCR Not Detected (NotDetected) 02/05/24 15:42 C. pneumoniae DNA (PCR) Not Detected (NotDetected) 02/05/24 15:42 Coronavirus OC43 (PCR) Not Detected (NotDetected) 02/05/24 15:42 Coronavirus HKU1 (PCR) Not Detected (NotDetected) 02/05/24 15:42 Coronavirus 229E (PCR) Not Detected (NotDetected) 02/05/24 15:42 SARS-CoV-2 (PCR) Not Detected (NotDetected) 02/05/24 15:42 Coronavirus NL63 (PCR) Not Detected (NotDetected) 02/05/24 15:42 Human Metapneumovir PCR Not Detected (NotDetected) 02/05/24 15:42 Influenza Type A (PCR) Not Detected (NotDetected) 02/05/24 15:42 Influenza Type B (PCR) Not Detected (NotDetected) 02/05/24 15:42 M. pneumoniae (PCR) Not Detected (NotDetected) 02/05/24 15:42 Parainfluenza 1 (PCR) Not Detected (NotDetected) 02/05/24 15:42 Parainfluenza 2 (PCR) Not Detected (NotDetected) 02/05/24 15:42 Parainfluenza 3 (PCR) Not Detected (NotDetected) 02/05/24 15:42 Parainfluenza 4 (PCR) Not Detected (NotDetected) 02/05/24 15:42 RSV (PCR) Not Detected (NotDetected) 02/05/24 15:42 Entero/Rhino (PCR) Not Detected (NotDetected) 02/05/24 15:42 Impressions Chest X-Ray 02/05/24 15:05 XR chest 1V not portable HISTORY: 83 years-old Female chills, fever Acute fever COMPARISON: 04/09/2022 TECHNIQUE: AP view of the chest FINDINGS: Cardiomediastinal and hilar silhouettes are unchanged. Chronic interstitial coarsening. No pneumothorax, pleural effusion or airspace consolidation. The bones of the chest appear grossly intact. IMPRESSION: No acute process. ACT 112: Negative or not required by law. The above report was generated using voice recognition software. It may contain grammatical, syntax or spelling errors. Electronically signed by: Emmanuel Hunter M.D. 02/05/2024 4:50 PM Abdomen/Pelvis CT 02/05/24 20:14 Exam(s): CT ABDOMEN + PELVIS With Contrast IV Amt: 91 ml opti 320 EXAM: CT Abdomen and Pelvis With Intravenous Contrast CLINICAL HISTORY: abd rizzo nv. TECHNIQUE: Axial computed tomography images of the abdomen and pelvis with intravenous contrast. CTDI is 19.24 mGy and DLP is 926.99 mGy-cm. Automated exposure control was utilized for the study. A dose lowering technique was utilized adhering to the principles of ALARA. CONTRAST: Patient received 91 ml opti 320 of IV contrast COMPARISON: CT abdomen and pelvis without contrast dated 02/23/2021 FINDINGS: Lung bases: Unremarkable. No mass. No consolidation. ABDOMEN: Liver: Unremarkable. No mass. Gallbladder and bile ducts: Unremarkable. No calcified stones. No ductal dilation. Pancreas: Unremarkable. No mass. No ductal dilation. Spleen: Unremarkable. No splenomegaly. Adrenals: Unremarkable. No mass. Kidneys and ureters: There are multiple scattered nephrolithiasis noted throughout the left kidney with the largest stone identified in the renal pelvis measuring 17 mm in long axis. There is mild left hydronephrosis. The previously noted left double-J ureteral stent has been removed from the previous examination. However, there is hyperenhancement and mucosal prominence of the proximal urothelium, primarily involving the left renal pelvis and proximal ureter. No ureteral stones noted bilaterally. There are subcentimeter nephrolithiasis noted on the right. Multiple scattered cortical cysts noted on the right are all subcentimeter in size. There is a probable parapelvic cyst on the left measuring 1 cm. Stomach and bowel: No evidence for bowel obstruction. Mucosal prominence of the decompressed transverse, descending and sigmoid colon is more prominent than on the previous examination. In addition, there is mild fluid in the distal rectosigmoid. Similar laxity and outpouching of the linea alba involving the pelvis. No bowel herniation. PELVIS: Appendix: No findings to suggest acute appendicitis. Bladder: Unremarkable. No mass. Reproductive: Status post hysterectomy. ABDOMEN and PELVIS: Intraperitoneal space: Unremarkable. No free air. No significant fluid collection. Bones/joints: No acute fracture. No dislocation. Soft tissues: Unremarkable. Vasculature: Atherosclerotic calcification of the aorta without dissection or aneurysm. Lymph nodes: Unremarkable. No enlarged lymph nodes. IMPRESSION: 1. There are multiple scattered nephrolithiasis noted throughout the left kidney with the largest stone identified in the renal pelvis measuring 17 mm in long axis. There is mild left hydronephrosis. The previously noted left double-J ureteral stent has been removed from the previous examination. However, there is hyperenhancement and mucosal prominence of the proximal urothelium, primarily involving the left renal pelvis and proximal ureter. Findings suggest inflammation/infection of the left urothelium. Please correlate with urinalysis, as appropriate. 2. No evidence for bowel obstruction. Mucosal prominence of the decompressed transverse, descending and sigmoid colon is more prominent than on the previous examination. In addition, there is mild fluid in the distal rectosigmoid. Findings are suspicious for inflammatory or infectious colitis with potential diarrheal disease. Please correlate clinically. Electronically signed by: Clinton Murcia MD 02/05/24 21:38 PM ECG Additional Comments: ECG. Normal sinus rhythm rate 76. Nonspecific ST and T wave abnormality. Code Status & VTE Plan VTE Prophylaxis Plan VTE Prophylaxis will be ordered: Yes
[2024-02-06] MEDS ORDERED: POLYETHYLENE (MIRALAX) 17 GM PACK PO PRN (01:50)
[2024-02-06] MEDS: ONDANSETRON INJ 2 MG/ML 2 ML VIAL IV PRN (02:07)
[2024-02-06] MEDS: D5W AND 1/2NSS 1,000 ML IV SCH (02:10)
[2024-02-06] MEDS: RALOXIFENE HCL 60 MG TAB PO SCH (08:07)
[2024-02-06] MEDS: POTASSIUM CHLORIDE CRTAB 20 MEQ TABCR PO SCH (08:07)
[2024-02-06] MEDS: FERROUS SULFATE 325 MG TAB PO SCH (08:07)
[2024-02-06] MEDS: ENOXAPARIN INJ 40 MG/0.4 ML SYR SQ SCH (08:07)
[2024-02-06] MEDS: CYANOCOBALAMIN (B-12) 500 MCG TABLET PO SCH (08:07)
[2024-02-06 08:44] LABS: Basophils # (auto) 0.01 K/uL (0.00-0.20); Basophils % (auto) 0.1 %; Hematocrit (blood only) 35.3 % (37.0-47.0); Hemoglobin 11.8 g/dl (12.0-16.0); Immature Granulocytes # (auto) 0.02 K/uL (0.01-0.20); Immature Granulocytes % (auto) 0.3 %; Lymphocytes # (auto) 0.66 K/uL (1.20-3.40); Lymphocytes % (auto) 9.4 %; Mean Corpuscular Hemoglobin 30.6 pg (25.0-34.0); Mean Corpuscular Hgb Conc 33.4 g/dL (32.0-36.0); Mean Corpuscular Volume 91.7 fL (80.0-100.0); Mean Platelet Volume 9.6 fL (9.4-12.4); Monocytes # (auto) 0.54 K/uL (0.11-0.59); Monocytes % (auto) 7.7 %; Neutrophils % (auto) 82.5 %; Platelet Count 265 K/uL (130-400); RDW Coefficient of Variation 13.7 % (11.5-14.5); RDW Standard Deviation 45.9 fL (36.4-46.3); Red Blood Count 3.85 M/uL (4.20-5.40); White Blood Count 7.03 K/ul (4.8-10.8)
[2024-02-06] MEDS: metroNIDAZOLE 500 MG/100 ML BAG IV SCH (09:10)
[2024-02-06 09:18] LABS: Calcium 8.5 mg/dl (8.6-10.3); Est GFR (Non-African American) 74.2 ml/min; Magnesium 1.9 mg/dl (1.7-2.4); Potassium 2.8 mmol/L (3.5-5.1)
--- NOTE | 2024-02-06 09:42 | Gastrointestinal Consultation ---
Date of Consultation February 06, 2024 Assessment & Plan (1) Colitis: 83 year old female admitted with recent UTI now pyeloneprhtisi admitted with nausea/vomiting and loose stools, GI asked to evaluate for colitis Check stool studies including a stool for c.diff Anti emetics PRN Analgesia PRN Agree w/ ABX to treat the pyelonephritis We discussed a colonoscopy as an OP if stool studies are negative, she is not agreeable to this. We discussed that without colonoscopy we are unable to rule out chronic inflammatory conditions causing colitis or even malignancy. She verbalized understanding and does not want to arrange a colonoscopy due to her age Thank you for allowing us to participate in the care of this patient. Please call with any acute changes, questions or concerns. Please see addendum below with additional recommendation from my supervising physician. Supervising Physician Co-Signing Physician Notes Agree with pe and plan as documented. mild abdominal discomfort. Imaging suggestive of left sided colitis. Agree with further plan of care as documented. 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 Pt was seen and evaluated, chart reviewed. Notes that she has been on an ABX for a UTI for about a week. however, the ABX was causing her some side effects so she had to stop. She notes that then she developed nausea/vomiting, loose stools and chills. Sought care. She denies abd pain but does have some cramping. Denies any black or bloody stools. CTAP 2023: 2. No evidence for bowel obstruction. Mucosal prominence of the decompressed transverse, descending and sigmoid colon is more prominent than on the previous examination. In addition, there is mild fluid in the distal rectosigmoid. Findings are suspicious for inflammatory or infectious colitis with potential diarrheal disease. Please correlate clinically. EGD: none Colonoscopy: 20 + years ago, she is not sure where this would have been completed Allergies Allergy/AdvReac Type Severity Reaction Status Date / Time influenza virus vaccine, Allergy Severe Gillean Verified 02/05/24 22:45 specific [place] Syndrome Sulfa (Sulfonamide Allergy Unknown Unknown Verified 02/05/24 22:45 Antibiotics) cephalexin AdvReac Nausea Verified 02/05/24 22:45 Home Medications Medication Instructions Recorded Confirmed Type ferrous sulfate 325 mg (65 mg 325 mg PO 3XWK 07/17/18 02/05/24 History iron) tablet (iron) raloxifene 60 mg tablet 60 mg PO QAM 01/20/20 02/05/24 History cyanocobalamin (vitamin B-12) 500 500 mcg PO QAM 12/20/20 02/05/24 History mcg tablet (Vitamin B-12) cranberry extract 500 mg capsule 0 mg PO QAM 05/08/21 02/05/24 History (Cranberry Concentrate) potassium chloride 10 mEq 20 meq PO BID 04/09/22 02/05/24 History tablet,extended release polyethylene glycol 3350 17 gram 17 g PO DAILY PRN constipation #30 04/12/22 02/05/24 Rx oral powder packet (Miralax) ea sennosides 8.6 mg-docusate sodium 1 tab PO BID PRN Constipation #60 04/12/22 02/05/24 Rx 50 mg tablet (Senokot-S) tabs acetaminophen 500 mg tablet 1,000 mg PO Q8 PRN Pain 02/05/24 02/05/24 History cefdinir 300 mg capsule 300 mg PO BID 10 days #20 caps 02/05/24 Rx nitrofurantoin 1 cap PO BID 02/05/24 02/05/24 History monohydrate/macrocrystals 100 mg capsule (Macrobid) ondansetron 4 mg disintegrating 4 mg PO Q8H PRN nausea and 02/05/24 Rx tablet vomiting #30 tabs Patient History Medical History Rectal abscess Kidney stones Anemia chronic Hx of Guillain-[place] syndrome after flu shot (1998)- mild residual LE neuropathy Osteoarthritis Hx of breast cancer right breast (2000) s/p radiation 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 Seizure x1 episode s/p benign brain tumor excision (1998) Surgical History History of tooth extraction History of colonoscopy History of cystoscopy multiple cystoscopy, right ureteronephroscopy, laser litho: 02/15/20: LMA#5 at [facility] cystoscopy, left stent placement: 12/21/20: MAC sedation at [facility] History of appendectomy History of total knee replacement Right & Left, L done by Dr. Berman 09/2021 History of hip surgery right intertrochanteric femoral nailing History of brain surgery 1998; benign tumor excision Hx of hysterectomy Hx of lumpectomy Right breast Family History Mother Macular degeneration Father Kidney stone Diabetes Social History Smoking Status: Never smoker Second Hand Exposure: No; Do You Dip or Chew Tobacco: No; Hx Alcohol Use: No Hx Substance Use: No Preferred Language: Danish Communication Ability: Effective Visual Impairment: No Limitations General Intern Required: No Beliefs That Will Affect Care: None marital status: / Current Living Situation: Family Current Living Situation Comment: son Other Information That Helps Us Care for You: No Feels Safe at Home: Yes Safety Concerns: Feels Safe At This Time Assistive Devices: Denture - Upper, Denture - Lower and Hearing Aid - Bilateral Review of Systems Review of Systems: All systems reviewed & are unremarkable except as noted in HPI & below Physical Exam Constitutional: WD/WN, vitals as above Respiratory: normal respiratory effort, lungs clear to auscultation Cardiovascular: Rate/Rhythm: regular rate and regular rhythm Gastrointestinal (Abdomen): Percussion/Palpation: abdomen soft; abdomen nontender, no guarding and abdomen not rigid Skin: no rashes, warm and dry Results & Data Vital Signs (Past 12 Hours) Vital Signs Temp Pulse Resp BP Pulse Ox O2 Del Method O2 Flow Rate 02/06/24 07:09 37.5 C 73 20 167/82 H 93 Room Air 02/06/24 01:50 37.1 C 85 14 152/88 H 95 Room Air 02/06/24 01:25 37.1 C 85 14 152/88 H 95 Room Air 02/05/24 23:00 70 18 130/75 96 Nasal Cannula 2 Laboratory Results 02/06/24 02/05/24 02/05/24 Range/Units 08:18 Unknown 15:42 WBC 7.03 (4.8-10.8) K/ul RBC 3.85 L (4.20-5.40) M/uL Hgb 11.8 L (12.0-16.0) g/dl Hct 35.3 L (37.0-47.0) % MCV 91.7 (80.0-100.0) fL MCH 30.6 (25.0-34.0) pg MCHC 33.4 (32.0-36.0) g/dL RDW Std Deviation 45.9 (36.4-46.3) fL RDW Coeff of Addie 13.7 (11.5-14.5) % Plt Count 265 (130-400) K/uL MPV 9.6 (9.4-12.4) fL Immature Gran % (Auto) 0.3 % Neut % (Auto) 82.5 % Lymph % (Auto) 9.4 % [place] % (Auto) 7.7 % Eos % (Auto) 0.0 % Baso % (Auto) 0.1 % Neut # (Auto) 5.80 (1.40-6.50) K/uL Lymph # (Auto) 0.66 L (1.20-3.40) K/uL [place] # (Auto) 0.54 (0.11-0.59) K/uL Eos # (Auto) 0.00 (0.00-0.50) K/uL Baso # (Auto) 0.01 (0.00-0.20) K/uL Immature Gran # (Auto) 0.02 (0.01-0.20) K/uL Sodium 143 (136-145) mmol/L Potassium 2.8 L (3.5-5.1) mmol/L Chloride 111 H (98-107) mmol/L Carbon Dioxide 25 (21-32) mmol/L Anion Gap 7 (3-11) BUN 15 (6-23) mg/dl Creatinine 0.75 (0.6-1.2) mg/dl Est Cr Clr Drug Dosing 52.0 Est GFR ( Amer) 86.0 ml/min Est GFR (Non-Af Amer) 74.2 ml/min BUN/Creatinine Ratio 20.0 (10-20) Glucose 151 H (70-99(Fasting)) mg/dl Calcium 8.5 L (8.6-10.3) mg/dl Magnesium 1.9 (1.7-2.4) mg/dl Total Bilirubin (0.2-1.0) mg/dl AST (13-39) U/L ALT (7-52) U/L Alkaline Phosphatase (34-104) U/L Troponin I High Sens (0-14) pg/ml Total Protein (6.0-8.3) gm/dl Albumin (3.4-5.0) gm/dl Globulin (2.5-4.0) gm/dl Albumin/Globulin Ratio (0.9-2) Lipase (11-82) U/L Urine Color Dark Yellow Urine Appearance Cloudy A (Clear) Urine pH 6.0 (4.5-7.5) Ur Specific [place] 1.016 (1.000-1.030) Urine Protein 2+ H (Negative) Urine Glucose (UA) Negative (Negative) Urine Ketones 2+ H (Negative) Urine Blood 3+ H (Negative) Urine Nitrite Negative (Negative) Urine Bilirubin Negative (Negative) Urine Urobilinogen Negative (Negative) Ur Leukocyte Esterase 2+ H (Negative) Urine WBC (Auto) >30 H (0-5) /hpf Urine RBC (Auto) >30 H (0-4) /hpf U Hyaline Cast (Auto) 1-5 (0-5) /lpf U Epithel Cells (Auto) >30 H (0-5) /lpf Urine Bacteria (Auto) Negative (Negative) Adenovirus (PCR) Not Detected (NotDetected) B. pertussis DNA (PCR) Not Detected (NotDetected) B.parapertussis DNA PCR Not Detected (NotDetected) C. pneumoniae DNA (PCR) Not Detected (NotDetected) Coronavirus OC43 (PCR) Not Detected (NotDetected) Coronavirus HKU1 (PCR) Not Detected (NotDetected) Coronavirus 229E (PCR) Not Detected (NotDetected) SARS-CoV-2 (PCR) Not Detected (NotDetected) Coronavirus NL63 (PCR) Not Detected (NotDetected) Human Metapneumovir PCR Not Detected (NotDetected) Influenza Type A (PCR) Not Detected (NotDetected) Influenza Type B (PCR) Not Detected (NotDetected) M. pneumoniae (PCR) Not Detected (NotDetected) Parainfluenza 1 (PCR) Not Detected (NotDetected) Parainfluenza 2 (PCR) Not Detected (NotDetected) Parainfluenza 3 (PCR) Not Detected (NotDetected) Parainfluenza 4 (PCR) Not Detected (NotDetected) RSV (PCR) Not Detected (NotDetected) Entero/Rhino (PCR) Not Detected (NotDetected) 02/05/24 Range/Units 15:41 WBC 8.39 (4.8-10.8) K/ul RBC 4.18 L (4.20-5.40) M/uL Hgb 12.9 (12.0-16.0) g/dl Hct 39.6 (37.0-47.0) % MCV 94.7 (80.0-100.0) fL MCH 30.9 (25.0-34.0) pg MCHC 32.6 (32.0-36.0) g/dL RDW Std Deviation 47.2 H (36.4-46.3) fL RDW Coeff of Addie 13.4 (11.5-14.5) % Plt Count 286 (130-400) K/uL MPV 9.9 (9.4-12.4) fL Immature Gran % (Auto) 0.4 % Neut % (Auto) 90.0 % Lymph % (Auto) 6.3 % [place] % (Auto) 2.9 % Eos % (Auto) 0.0 % Baso % (Auto) 0.4 % Neut # (Auto) 7.56 H (1.40-6.50) K/uL Lymph # (Auto) 0.53 L (1.20-3.40) K/uL [place] # (Auto) 0.24 (0.11-0.59) K/uL Eos # (Auto) 0.00 (0.00-0.50) K/uL Baso # (Auto) 0.03 (0.00-0.20) K/uL Immature Gran # (Auto) 0.03 (0.01-0.20) K/uL Sodium 141 (136-145) mmol/L Potassium 3.5 (3.5-5.1) mmol/L Chloride 110 H (98-107) mmol/L Carbon Dioxide 20 L (21-32) mmol/L Anion Gap 11 (3-11) BUN 19 (6-23) mg/dl Creatinine 0.87 (0.6-1.2) mg/dl Est Cr Clr Drug Dosing Not Reportable Est GFR ( Amer) 71.9 ml/min Est GFR (Non-Af Amer) 62.0 ml/min BUN/Creatinine Ratio 21.8 H (10-20) Glucose 183 H (70-99(Fasting)) mg/dl Calcium 9.0 (8.6-10.3) mg/dl Magnesium (1.7-2.4) mg/dl Total Bilirubin 0.6 (0.2-1.0) mg/dl AST 13 (13-39) U/L ALT 9 (7-52) U/L Alkaline Phosphatase 104 (34-104) U/L Troponin I High Sens 5.1 (0-14) pg/ml Total Protein 7.6 (6.0-8.3) gm/dl Albumin 4.4 (3.4-5.0) gm/dl Globulin 3.2 (2.5-4.0) gm/dl Albumin/Globulin Ratio 1.4 (0.9-2) Lipase 12 (11-82) U/L Urine Color Urine Appearance (Clear) Urine pH (4.5-7.5) Ur Specific [place] (1.000-1.030) Urine Protein (Negative) Urine Glucose (UA) (Negative) Urine Ketones (Negative) Urine Blood (Negative) Urine Nitrite (Negative) Urine Bilirubin (Negative) Urine Urobilinogen (Negative) Ur Leukocyte Esterase (Negative) Urine WBC (Auto) (0-5) /hpf Urine RBC (Auto) (0-4) /hpf U Hyaline Cast (Auto) (0-5) /lpf U Epithel Cells (Auto) (0-5) /lpf Urine Bacteria (Auto) (Negative) Adenovirus (PCR) (NotDetected) B. pertussis DNA (PCR) (NotDetected) B.parapertussis DNA PCR (NotDetected) C. pneumoniae DNA (PCR) (NotDetected) Coronavirus OC43 (PCR) (NotDetected) Coronavirus HKU1 (PCR) (NotDetected) Coronavirus 229E (PCR) (NotDetected) SARS-CoV-2 (PCR) (NotDetected) Coronavirus NL63 (PCR) (NotDetected) Human Metapneumovir PCR (NotDetected) Influenza Type A (PCR) (NotDetected) Influenza Type B (PCR) (NotDetected) M. pneumoniae (PCR) (NotDetected) Parainfluenza 1 (PCR) (NotDetected) Parainfluenza 2 (PCR) (NotDetected) Parainfluenza 3 (PCR) (NotDetected) Parainfluenza 4 (PCR) (NotDetected) RSV (PCR) (NotDetected) Entero/Rhino (PCR) (NotDetected)
[2024-02-06] MEDS: POTASSIUM CHLORIDE / WTR 10 MEQ/100 ML PLCT IV SCH (12:31)
--- NOTE | 2024-02-06 14:43 | Hospitalist Progress Note ---
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 Acute left sided pyelonephritis Left kidney nephrolithiasis Mild left hydronephrosis Colitis Patient presents with nausea, vomiting, abdominal discomfort and chills. CT abdomen and pelvis on admission showed multiple scattered nephrolithiasis within the left kidney with mild left hydronephrosis and possible pyelonephritis. CT abdomen pelvis also shows finding with possible infectious colitis on distal rectosigmoid No leukocytosis Urinalysis with 3+ blood, 2+ leukocyte esterase and bacteria Started on Rocephin; will continue. Obtain blood cultures; follow-up on urine culture Also added on Flagyl given possible infectious colitis. GI recommended outpatient colonoscopy and stool studies/C. difficile test. Patient rejected outpatient colonoscopy Full liquid diet. Urology consulted given the findings on the CT abdomen pelvis with hydronephrosis and multiple renal stones with the largest measuring 17 mm. Hypokalemia Repleted with IV and oral supplement History of breast cancer S/p lumpectomy and radiation treatment On duloxetine DVT prophylaxis Lovenox Disposition Medical floor Full code Please note the above document was generated using voice recognition software. It may contain grammatical, syntax or spelling errors. Any formal questions or concerns about the content, text or information contained within the body of this dictation should be directly addressed to the provider for clarification Admission and Anticipated Discharge Date Admission Date: February 06, 2024 Subjective Patient seen and examined at bedside. She reports multiple episode of vomiting in the morning. Reports abdominal pain and discomfort. Vital signs are stable; she is saturating well in room air. Review of Systems Review of Systems: All systems reviewed & are unremarkable except as noted in Subjective Physical Exam Physical Exam: General- Not in distress Head- atraumatic Eyes- PERRL. ENT- oropharynx clear Neck- supple, no JVD. Lungs- clear to auscultation no wheezing or crackles Heart- regular rhythm; no murmur, no gallop. Abdomen-soft, nontender. Bowel sound present Extremities- no pretibial edema, no erythema seen Neuro- alert, oriented ; PERRL, no facial palsy; no dysarthria; moves extremit ies Results & Data Results & Data Vital Signs (Past 12 Hours) Vital Signs Temp Pulse Resp BP Pulse Ox O2 Del Method 02/06/24 14:32 36.7 C 76 18 157/80 H 94 Room Air 02/06/24 07:09 37.5 C 73 20 167/82 H 93 Room Air
--- OUTSIDE RECORDS SUMMARY | 2024-02-06 20:50 | External Medical Summary | Continuity of Care Document ---
Author Name Unknown Organization [address] Address [address] [place] [id number] Care Team Providers Care Medication Assistant Name Role Phone NedaNorma Primary Care Physician [phone] [facility] [id number] Date(s): 01/09/24 - 01/09/[address] [address] [phone] Encounter Diagnosis Body mass index [BMI] 27.0-27.9, adult(Discharge Diagnosis) - 01/09/24 [id number](Discharge Diagnosis) - 01/09/24 Discharge Disposition: Home or Self Care Attending Physician: MD Sidhu Jeffrey S Allergies, Adverse Reactions, Alerts Substance Reaction Severity Status sulfa drugs Rash Active Assessment and Plan Extracted from: Title:Surgery Office Visit Note Author:MD Sidhu Jeffrey S Date:01/09/24 Body mass index [BMI] 27.0-2 7.9, adult Fistula in ano I discussed the patient that I felt that we could leave the seton out. I discussed that this has been in place for over4 years and that would be reasonable to leave it out and see how she does. I do note the [facility] of [facility] where they treated patients with a seton for a year. I think that this is a reasonable approach in thisindividual. She will return to see me on an as-needed basis if there are issues with which I can. [facility] (DOI: [id number]). Medications Cranberry oral capsule Start: 03/09/19 11:02:00 EDT, PO, Daily Start Date: 03/09/19 Status: Ordered diclofenac 1% topical gel APPLY 2 GMS TOPICALLY THREE TO FOUR TIMES PER DAY DIRECTED Start Date: 07/11/20 Status: Ordered Klor-Con 10 Start: 03/09/19 11:01:00 EDT, 10 mEq =, PO, Daily Start Date: 03/09/19 Status: Ordered raloxifene 60 mg oral tablet TAKE 1 TABLET BY MOUTH EVERY DAY Start Date: 07/11/20 Status: Ordered Vitamin B12 Start: 03/09/19 11:02:00 EDT, PO, Daily Start Date: 03/09/19 Status: Ordered Vitamin D3 Start: 03/09/19 11:00:00 EDT, 1,000 Int_Unit =, PO, Daily Start Date: 03/09/19 Status: Ordered Mental Status 01/09/24 Barriers to Learning one year None evide nt Mandatory Health Literacy Documentation Yes Communication Barrier Present No Health Literacy Communication Barriers N ever Primary Language Spanish Problem List Condition Confirmation Course Effective Dates Status Health St atus Informant Arthritis Confirmed Active Diarrhea Confirmed Active Kidney stones Confirmed Active Rectal abscess Confirmed Active Diagnosis Diagnosis Type Effective Dates Health Status Cl inical Service Informant [id number]-[id number]-clr Discharge Diagnosis 01/09/24 Body mass index [BMI] 27.0-27.9, adult Discharge Diagnosis 01/09/24 Non-Specified Procedures Procedure Date Related Diagnosis Body Site Status DRAINAGE OF RECTAL ABSCESS 03/18/19 Completed History of benign tumor of brain-surgery 1 Completed History of hip surgery-Right 2 Completed History of knee surgery-Right 3 Completed Hysterectomy 4 Completed 86317 Vital Signs Most recent to oldest [Reference Range]: 1 Height 161 cm (01/09/24 11:35 AM) Patient Weight 70.4 kg (01/09/24 11:35 AM) Body Mass Index 27.16 kg/m2 (01/09/24 11:35 AM) Social History Social History Type Response Smoking Status Never smoked cigaret carl Sex Female Colorectal Outpt Note * MD Thea, Jp S: PERFORM, MODIFY Event Display: Colorectal Outpt Note Authored Date: [id number] Primary Care Provider MARK Red [place] Lynn Chief Complaint Pt here for f/u. Pt's seton fell out on Friday. Denies pain History of Present Illness The patient is an 84-year-old femalewho I have seen several times in the past. She is also see my colleague Dr. Albrecht. 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 This has been in place nearly4 to 5 yearswe have replaced the seton in the clinic several times after it is fallenout. Patient reports that on Friday (today is Friday)that the seton fell out. She denies anydrainageor abscess. Denies fever. Physical Exam Vitals & Measurements HT:161cm WT:70.400kg(Dosing) WT:70.4kg BMI:27.16 General:NAD, Alert and Oriented HEENT:Normocephalic, atraumatic Chest:No respiratory distress, Abdomen:, nondistended, Extremity:Moves all extremities, appropriate range of motion, appropriate strength Psychiatric:Cooperative, appropriate mood & affect Anuspatient was examined prone jackknife on the proctoscopy table. Visual examination revealed arightexternal opening of a fistula in anal. There was no purulent drainage from this no ballotable fluid collectionno granulation tissue present. Assessment/Plan Body mass index [BMI] 27.0-27.9, adult Fistula in ano I discussed the patient that I felt that we could leave the seton out. I discussed that this has been in place for over4 years and that would be reasonable to leave it out and see how she does. I do note the [facility] of [facility] where they treated patients with a seton for a year. I think that this is a reasonable approach in thisindividual. She will return to see me on an as-needed basis if there are issues with which I can. [facility] (DOI: [id number]). Attestation On the day of the encounter, I personally spent a total time of15 minutes reviewing prior medicalvisits and tests, obtaining history, performing a medically appropriate exam/evaluation, interpreting results, ordering medications, tests, and/or procedures and communicating to the patient and other healthcare professionals. Problem List/Past Medical History Ongoing Arthritis Breast cancer Diarrhea Kidney stones Rectal abscess Procedure/Surgical History DRAINAGE OF RECTAL ABSCESS (03/18/2019)History of hip surgery- RightHistory of knee surgery-RightHysterectomyHistory of benign tumor of brain-surgery Medications cholecalciferol(Vitamin D3), 1000 Int_Unit, PO, Daily cranberry(Cranberry oral capsule), PO, Daily cyanocobalamin(Vitamin B12), PO, Daily diclofenac topical(diclofenac 1% topical gel) potassium chloride(Klor-Con 10), 10 mEq, PO, Daily raloxifene(raloxifene 60 mg oral tablet) Allergies sulfa drugsRash Social History Smoking Status Never smoked cigarettes Family History Family history is unknown Recommendations Health Maintenance Pending(in the next year) OverDue Adult Influenza Vaccine due05/23/23and every 1year Due Adult COVID-19 Vaccination due01/09/24Unknown Frequency Adult Social Determinants of Health Screening due01/09/24Unknown Frequency Adult Tdap/Td Vaccine due01/09/24Unknown Frequency Lipid Screening due01/09/24Unknown Frequency Medicare Annual Wellness Visit due01/09/24and every 1year Osteoporosis Screening due01/09/24One-time only Pneumococcal Vaccine Older Adults due01/09/24One-time only Shingles Vaccine due01/09/24One-time only Satisfied(in the past 1 year) Satisfied Body Mass Index on01/09/24.Satisfied by JENARO Gutiérrez Erin Electronic Signature on File Electronically Reviewed/Signed by: Jp Sidhu MD, FACS Author Signature Dt/Tm:01/09/2024 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
[2024-02-06] MEDS: PROMETHAZINE HCL 12.5 MG in SODIUM CHLORIDE 0.9% 50 ML IV PRN (22:35)
[2024-02-06] MEDS: cefTRIAXone SODIUM 2,000 MG in DEXTROSE 5 % MINI-B 50 ML IV SCH (22:39)
[2024-02-06 23:02] LABS: Adenovirus F 40/41 PCR Not Detected (NotDetected); Astrovirus PCR Not Detected (NotDetected); Campylobacter PCR Not Detected (NotDetected); Cryptosporidium PCR Not Detected (NotDetected); Cyclospora cayetanensis PCR Not Detected (NotDetected); Entamoeba histolytica PCR Not Detected (NotDetected); Enteroaggregative E.coli(EAEC) Not Detected (NotDetected); Enteropathogenic E.coli (EPEC) Not Detected (NotDetected); Enterotoxigenic E.coli (ETEC) Not Detected (NotDetected); Giardia lamblia PCR Not Detected (NotDetected); Norovirus GI/GII PCR Not Detected (NotDetected); Plesiomonas shigelloides PCR Not Detected (NotDetected); Rotavirus A PCR Not Detected (NotDetected); Salmonella PCR Not Detected (NotDetected); Sapovirus PCR Not Detected (NotDetected); Shiga-like Toxin E.coli (STEC) Not Detected (NotDetected); Shigella/Enteroinvasive E.coli Not Detected (NotDetected); Vibrio cholerae PCR Not Detected (NotDetected); Vibrio species PCR Not Detected (NotDetected); Yersinia enterocolitica PCR Not Detected (NotDetected)
[2024-02-07] MEDS: METOCLOPRAMIDE HCL INJ 5 MG/ML 2 ML VIAL IV ONE (01:08)
[2024-02-07 06:54] LABS: Basophils # (auto) 0.01 K/uL (0.00-0.20); Basophils % (auto) 0.2 %; Hematocrit (blood only) 36.2 % (37.0-47.0); Hemoglobin 12.3 g/dl (12.0-16.0); Immature Granulocytes # (auto) 0.02 K/uL (0.01-0.20); Immature Granulocytes % (auto) 0.3 %; Lymphocytes # (auto) 0.78 K/uL (1.20-3.40); Lymphocytes % (auto) 11.7 %; Mean Corpuscular Volume 91.2 fL (80.0-100.0); Mean Platelet Volume 9.8 fL (9.4-12.4); Monocytes # (auto) 0.46 K/uL (0.11-0.59); Monocytes % (auto) 6.9 %; Neutrophils # (auto) 5.37 K/uL (1.40-6.50); Neutrophils % (auto) 80.9 %; Platelet Count 273 K/uL (130-400); RDW Coefficient of Variation 13.4 % (11.5-14.5); RDW Standard Deviation 45.4 fL (36.4-46.3); Red Blood Count 3.97 M/uL (4.20-5.40); White Blood Count 6.64 K/ul (4.8-10.8)
--- NOTE | 2024-02-07 07:01 | Electrocardiogram Report ---
Test Reason : Blood Pressure : / mmHG Vent. Rate : 076 BPM Atrial Rate : 076 BPM P-R Int : 186 ms QRS Dur : 066 ms QT Int : 386 ms P-R-T Axes : 068 -18 069 degrees QTc Int : 434 ms Normal sinus rhythm Nonspecific ST and T wave abnormality Abnormal ECG When compared with ECG of 09-APR-2022 11:45, No significant change was found Confirmed by Omari Matthew ([id number]) on 02/07/2024 7:01:07 AM Referred By: REFERRED SELF Confirmed By:Omari Matthew
[2024-02-07 07:29] LABS: BUN Creatinine Ratio 18.7 (10-20); Calcium 8.6 mg/dl (8.6-10.3); Est GFR (Non-African American) 74.2 ml/min; Potassium 2.9 mmol/L (3.5-5.1)
[2024-02-07] MEDS: POTASSIUM CHLORIDE CRTAB 20 MEQ TABCR PO SCH (08:02)
--- NOTE | 2024-02-07 10:41 | Urology Consultation ---
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 Has history of severe stone disease on the left. Has atrophy with chronic hydronephrosis has previously had issues with pyelitis pyelonephritis infection and bother. Patient had been admitted due to continued and worsening GI and bowel issues with severe chronic colitis and issues with intractable nausea and vomiting. Had undergone CT examination and found to have possible developing pyelonephritis with inflammatory changes around the left kidney. Known chronic hydronephrosis with chronic thickening. Likely UTI. No signs of significant pyelonephritis currently. No fevers. No significant signs of sepsis. Numerous stones seen within the renal pelvis. Patient's previously had calcium oxalate stones. Patient has not been seen since 2020 in the office. White blood count was 6.64. Creatinine 0.75. Hemoglobin 12.3. All the labs and vitals were reviewed. Please see records, HPI section or plan section for full report. Vitals have remained stable with blood pressure 165/77. No significant tachycardia. No episodes of fever or sudden change. Was satting 93% on room air. Patient was resting comfortably. Extensively reviewed options. Patient's imaging was reviewed interpreted by myself. CT imaging is showing likely chronic inflammatory changes with thickening of the ureter and atrophic kidney on the left with numerous stones. Does have a drastic increase in stone burden. Patient has previously had issues with this. Reviewed extensively options. Patient has also been considering options moving forward with management of severe chronic bowel issues. Did review options for intervention. Patient is currently afebrile, and no signs of MALINA. Is still dealing with ongoing GI issues. No urgent/emergent indication for intervention. Could consider further management of stones versus decompression of collecting system on left with stent however would likely be dealing with chronic discomfort burning irritation from stent to self. Patient had tolerated in the past but did have symptoms with stents previously. Could consider possible [place] catheterization in order to maintain drainage of the bladder. Reviewed with patient. Patient's complicated medical and surgical history was all reviewed and summarized above. All imaging was reviewed interpreted by myself. All labs and vitals were reviewed. Extensive conversation and discussion of options. Will plan for observation. Will plan for outpatient follow-up in 1 to 2 months. If any major changes or considerable increase in symptoms bother development of fever development of MALINA intractable pain or nausea or other major changes could consider possible intervention with stent. History of Present Illness Attending Physician: Parvez Villarreal MD History of Present Illness New consultation for patient with UTI/Pyelo, discomfort, and ill feelings. Well known patient with history of stones and obstruction. Atrophy and chronic hydro of the left kidney with recurrent stones. Patient developed sudden onset of pain into flank going down and radiating into groin and back in waves comes and goes. Can be severe at times. Admitted for N/V and colitis. Inflammation with possible infection. Chronic bowel issues. Discussed and reviewed patient's family history for any history of issues, infections, and disease. Also, discussed patient's medical/surgery history especially related to any history of urinary issues or stone disease. Patient was admitted and is undergoing observation with broad spectrum IV antibiotics. Allergies Allergy/AdvReac Type Severity Reaction Status Date / Time influenza virus vaccine, Allergy Severe Gillean Verified 02/05/24 22:45 specific [place] Syndrome Sulfa (Sulfonamide Allergy Unknown Unknown Verified 02/05/24 22:45 Antibiotics) cephalexin AdvReac Nausea Verified 02/05/24 22:45 Home Medications Medication Instructions Recorded Confirmed Type ferrous sulfate 325 mg (65 mg 325 mg PO 3XWK 07/17/18 02/05/24 History iron) tablet (iron) raloxifene 60 mg tablet 60 mg PO QAM 01/20/20 02/05/24 History cyanocobalamin (vitamin B-12) 500 500 mcg PO QAM 12/20/20 02/05/24 History mcg tablet (Vitamin B-12) cranberry extract 500 mg capsule 0 mg PO QAM 05/08/21 02/05/24 History (Cranberry Concentrate) potassium chloride 10 mEq 20 meq PO BID 04/09/22 02/05/24 History tablet,extended release polyethylene glycol 3350 17 gram 17 g PO DAILY PRN constipation #30 04/12/22 02/05/24 Rx oral powder packet (Miralax) ea sennosides 8.6 mg-docusate sodium 1 tab PO BID PRN Constipation #60 04/12/22 02/05/24 Rx 50 mg tablet (Senokot-S) tabs acetaminophen 500 mg tablet 1,000 mg PO Q8 PRN Pain 02/05/24 02/05/24 History cefdinir 300 mg capsule 300 mg PO BID 10 days #20 caps 02/05/24 Rx nitrofurantoin 1 cap PO BID 02/05/24 02/05/24 History monohydrate/macrocrystals 100 mg capsule (Macrobid) ondansetron 4 mg disintegrating 4 mg PO Q8H PRN nausea and 02/05/24 Rx tablet vomiting #30 tabs Patient History Medical History Rectal abscess Kidney stones Anemia chronic 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 Berman 09/2021 History of hip surgery right intertrochanteric femoral nailing History of brain surgery 1998; benign tumor excision Hx of hysterectomy Hx of lumpectomy Right breast Family History Mother Macular degeneration Father Kidney stone Diabetes Social History Smoking Status: Never smoker Second Hand Exposure: No; Do You Dip or Chew Tobacco: No; Hx Alcohol Use: No Hx Substance Use: No Preferred Language: Lithuanian Communication Ability: Effective Visual Impairment: No Limitations Environmental Services Tech Required: No Beliefs That Will Affect Care: None marital status: / Current Living Situation: Family Current Living Situation Comment: son Other Information That Helps Us Care for You: No Feels Safe at Home: Yes Safety Concerns: Feels Safe At This Time Assistive Devices: Cane and Walker Review of Systems Review of Systems: All systems reviewed & are unremarkable except as noted in HPI & below Physical Exam Physical Exam: General: Alert and oriented x 3 in no acute distress. Chronic medical issues. HEENT: Normocephalic Atraumatic. Inspection normal. Cranial Nerves 2-12 Grossly intact. Nares are clear. Neck is supple. Normal inspection of face. Normal inspection of neck. Neurologic: No deficits on inspection. Baseline for motor function and sensory. Psychologic: Normal affect. Respiratory: Nonlabored. No use of accessory muscles. No tachypnea or dyspnea. Cardiovascular: No tachycardia Skin: [place] and Dry. No rashes or visible lesions. Extremities: Moving without issues. No motor deficits on inspection Lymphatics: No edema Abdomen: Soft Non-distended. No rebound or guarding. Results & Data Vital Signs (Past 12 Hours) Vital Signs Temp Pulse Resp BP Pulse Ox O2 Del Method 02/07/24 07:11 37.1 C 77 16 165/77 H 93 Room Air PG Care Time/CCT Total # of Minutes Spent Total Time Spent with Patient: Total time spent is greater than 50% in coordination of care (as documented) at patient's floor/unit and/or counseling patient: Coding Level of Care Code 18914 IN/OBS CONSULT LVL 5,80M Diagnoses Acute pyelonephritis N10 Colitis K52.9 Intractable nausea and vomiting R11.2 History of Guillain-[place] syndrome Z86.69 Neuropathy involving both lower extremities G57.93
--- NOTE | 2024-02-07 14:27 | Hospitalist Progress Note ---
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 Acute left sided pyelonephritis Left kidney nephrolithiasis Mild left hydronephrosis Colitis Patient presents with nausea, vomiting, abdominal discomfort and chills. CT abdomen and pelvis on admission showed multiple scattered nephrolithiasis within the left kidney with mild left hydronephrosis and possible pyelonephritis. CT abdomen pelvis also shows finding with possible infectious colitis on distal rectosigmoid No leukocytosis Urinalysis with 3+ blood, 2+ leukocyte esterase and bacteria Blood cultureno growth Urine culturemore than 3 types of organism; repeat collection recommended Stool PCR and C. difficile negative Continue on Rocephin. Repeat urine culture Continue on Flagyl given possible infectious colitis. GI recommended outpatient colonoscopy and stool studies/C. difficile test. Patient rejected outpatient colonoscopy Advance diet Urology consulted for left-sided nephrolithiasis; they recommended outpatient follow-up in 1 to 2 months Hypokalemia Repleted with IV and oral supplement Repeat potassium 2.9 Repleted History of breast cancer S/p lumpectomy and radiation treatment On duloxetine DVT prophylaxis Lovenox Disposition Medical floor Full code Please note the above document was generated using voice recognition software. It may contain grammatical, syntax or spelling errors. Any formal questions or concerns about the content, text or information contained within the body of this dictation should be directly addressed to the provider for clarification Admission and Anticipated Discharge Date Admission Date: February 06, 2024 Subjective Patient seen and examined at bedside. Comfortable; not in distress. Denies fever, chills, chest pain, shortness of breath, abdominal pain or urinary symptoms. No significant overnight events Vital stable; saturating well in room air Review of Systems Review of Systems: All systems reviewed & are unremarkable except as noted in Subjective Physical Exam Physical Exam: General- Not in distress Head- atraumatic Eyes- PERRL. ENT- oropharynx clear Neck- supple, no JVD. Lungs- clear to auscultation no wheezing or crackles Heart- regular rhythm; no murmur, no gallop. Abdomen-soft, nontender. Bowel sound present Extremities- no pretibial edema, no erythema seen Neuro- alert, oriented ; PERRL, no facial palsy; no dysarthria; moves extremities Results & Data Results & Data Vital Signs (Past 12 Hours) Vital Signs Temp Pulse Resp BP Pulse Ox O2 Del Method 02/07/24 14:05 37.3 C 89 16 138/81 94 Room Air 02/07/24 07:11 37.1 C 77 16 165/77 H 93 Room Air
[2024-02-07] MEDS: ACETAMINOPHEN 325 MG TAB PO PRN (19:51)
[2024-02-08] MEDS: LORazepam 0.25 MG in SYRINGE 0.125 ML IV STA (02:58)
[2024-02-08 06:51] LABS: Basophils # (auto) 0.02 K/uL (0.00-0.20); Basophils % (auto) 0.4 %; Hematocrit (blood only) 39.3 % (37.0-47.0); Hemoglobin 13.7 g/dl (12.0-16.0); Immature Granulocytes # (auto) 0.03 K/uL (0.01-0.20); Immature Granulocytes % (auto) 0.5 %; Lymphocytes # (auto) 0.67 K/uL (1.20-3.40); Mean Corpuscular Hemoglobin 31.2 pg (25.0-34.0); Mean Corpuscular Hgb Conc 34.9 g/dL (32.0-36.0); Mean Corpuscular Volume 89.5 fL (80.0-100.0); Mean Platelet Volume 9.9 fL (9.4-12.4); Monocytes # (auto) 0.47 K/uL (0.11-0.59); Monocytes % (auto) 8.4 %; Neutrophils # (auto) 4.41 K/uL (1.40-6.50); Neutrophils % (auto) 78.7 %; Platelet Count 288 K/uL (130-400); RDW Coefficient of Variation 13.1 % (11.5-14.5); RDW Standard Deviation 43.1 fL (36.4-46.3); Red Blood Count 4.39 M/uL (4.20-5.40)
[2024-02-08 07:11] LABS: BUN Creatinine Ratio 18.8 (10-20); Calcium 8.2 mg/dl (8.6-10.3); Creatinine Clr Calc Pharmacy 56.6 ml/min; Est GFR (Non-African American) 81.1 ml/min
[2024-02-08] MEDS: POTASSIUM CHLORIDE CRTAB 20 MEQ TABCR PO SCH (08:43)
--- NOTE | 2024-02-08 11:32 | Discharge Summary ---
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 Patient states on Friday she had chills. States on Friday she was not feeling well and went to [facility] where she was prescribed Macrobid for UTI. But she was having a lot of nausea vomiting unable to take a ny p.o. medications and came to the ER. In the ED she was given Rocephin and and then planned to discharge on Omnicef but again she developed severe nausea vomiting and CAT scan was done which is showing pyonephritis and also colitis. Denies any fevers. No abdominal pain. She states having diarrhea daily since Guillain-Sandra syndrome. No burning micturition. No hematuria. No chest pain or shortness of breath. No headache. Vision is okay. No runny nose. No sore throat. No cough. Currently resting comfortably and hemodynamically stable.Somewhat hard to hear. Past medical history. As mentioned above Past surgical history. Appendectomy, brain surgery for benign tumor excision, history of colonoscopy, cystoscopy multiple times, laser lithotripsy, right intertrochanteric femoral nailing, tooth extraction, history of total knee replacement bilateral, history of hysterectomy, history of right breast lumpectomy. Family history. Mother had macular degeneration, father had kidney stones and diabetes Social history no smoking. No alcohol use. No drug use. Admission Exam Per Admitting Provider General- Not in distress Head- atraumatic Eyes- PERRL. ENT- oropharynx clear Neck- supple, no JVD. Lungs- clear to auscultation no wheezing or crackles Heart- regular rhythm; no murmur, no gallop. Abdomen- normal bowel sounds, soft, nontender, no distension. Extremities- no pretibial edema, no erythema seen Neuro- alert, oriented ; PERRL, no facial palsy; no dysarthria; moves extremities Principal Diagnosis Left-sided pyelonephritis Left nephrolithiasis Colitis Discharge Exam Constitutional: WD/WN, vitals as above, NAD, sitting up in bed, pleasant, conversing easily Respiratory: normal respiratory effort, lungs clear to auscultation, no wheeze, rales, rhonchi. Normal insp/exp effort, no accessory muscle use Cardiovascular: RRR, no murmur, no edema Vessels: no JVD or carotid bruit Chest: normal inspection of chest Abdomen: normal bowel sounds, soft, nontender, no hepatosplenomegaly Musculoskeletal: no cyanosis or clubbing, extremities motor strength 5/5 Skin: no rashes, warm and dry normal turgor Neurologic: PERRL, EOMI, accommodation nl, no face palsy, no dysarthria CN's II- XI intact bilaterally and moves all extremities Psychiatric: A+Ox3, euthymic affect Discharge Data Allergies Allergy/AdvReac Type Severity Reaction Status Date / Time influenza virus vaccine, Allergy Severe Gillean Verified 02/05/24 22:45 specific [place] Syndrome Sulfa (Sulfonamide Allergy Unknown Unknown Verified 02/05/24 22:45 Antibiotics) cephalexin AdvReac Nausea Verified 02/05/24 22:45 Consultations 02/05/24 21:57 ED Decision to Admit Stat 02/06/24 08:00 Consult Gastroenterology Routine 02/06/24 14:48 Consult Urology Routine Ordered Studies 02/05/24 20:14 CT abd pelvis IV con only Stat Hospital Course (1) Acute pyelonephritis: 83-year-old female with past med history significant for right breast cancer, 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 Acute left sided pyelonephritis Left kidney nephrolithiasis Mild left hydronephrosis Colitis Patient presents with nausea, vomiting, abdominal discomfort and chills. CT abdomen and pelvis on admission showed multiple scattered nephrolithiasis within the left kidney with mild left hydronephrosis and possible pyelonephritis. CT abdomen pelvis also shows finding with possible infectious colitis on distal rectosigmoid No leukocytosis Urinalysis with 3+ blood, 2+ leukocyte esterase and bacteria Blood cultureno growth Urine culturemore than 3 types of organism; repeat collection recommended. Repeat collection obtained; pending. Stool PCR and C. difficile negative During the hospitalization, patient was started on Rocephin and Flagyl for pyelonephritis and possible infectious colitis. GI recommends outpatient colonoscopy and stool studies/C. difficile test; stool studies/C. difficile is negative. Patient rejected outpatient colonoscopy Urology was consulted for left-sided nephrolithiasis; recommended follow-up in 1 to 2 months Patient reported significant improvement during the hospitalization. She did not have any pain or discomfort at the time of discharge and wanted to go home. Patient was prescribed 7 more days of Augmentin to complete the antibiotic course. Please note the above document was generated using voice recognition software. It may contain grammatical, syntax or spelling errors. Any formal questions or concerns about the content, text or information contained within the body of this dictation should be directly addressed to the provider for clarification Total Time Total Time Spent Total Time Spent (In Minutes): 45 Total Time Includes: Examination of the Patient, Discharge Planning, Medication Reconciliation, Communication With Other Providers and Other Discharge Plan Discharge Items Patient Disposition: Home - Self-Care Reason For Visit: N/V, PYELONEPHRITIS Discharge Diagnosis: Left-sided pyelonephritis Activity: Resume your previous activity Non-emergency contact: Primary Care Provider Call non-emergency contact if: you have any medication questions and your symptoms worsen Follow-up/Referrals: Indu Ambrocio [Primary Care Provider] - Diet: Regular Addtl Attending Provider Instructions: You were admitted to the hospital due to chills, nausea and vomiting. CT abdomen pelvis done during hospitalization showed left-sided kidney infection. It was also concerning for colitis for which GI evaluated you. You are prescribed Augmentin to be taken twice daily for 7 more days to complete the antibiotic course. You are prescribed Zofran as needed every 8 hours for nausea/vomiting. Please follow-up with urology as outpatient for management of kidney stones. The CT abdomen pelvis showed multiple stones on your left kidney. An appointment with your primary care will be set up for sometime next week. Please follow-up with them Pending Studies at Discharge: No Stand-Alone Forms: [facility], Smoking Cessation Medications and DC Order Prescriptions: New amoxicillin-pot clavulanate 875-125 mg tablet 1 tab PO BID 7 Days Qty: 14 0RF ondansetron 4 mg tablet,disintegrating 4 mg PO Q8H PRN (Reason: nausea and vomiting) 5 Days Qty: 20 0RF Continued cyanocobalamin (vitamin B-12) [Vitamin B-12] 500 mcg Tablet 500 mcg PO QAM ferrous sulfate [iron] 325 mg (65 mg iron) Tablet 325 mg PO 3XWK Rx Instructions: take on Mondays, Wednesdays, and Fridays cranberry extract [Cranberry Concentrate] 500 mg capsule 0 mg PO QAM raloxifene 60 mg tablet 60 mg PO QAM potassium chloride 10 mEq tablet extended release 20 meq PO BID polyethylene glycol 3350 [Miralax] 17 gram Powder In Packet 17 g PO DAILY PRN (Reason: constipation) Qty: 30 0RF sennosides-docusate sodium [Senokot-S] 8.6-50 mg Tablet 1 tab PO BID PRN (Reason: Constipation) Qty: 60 0RF acetaminophen 500 mg tablet 1,000 mg PO Q8 PRN (Reason: Pain) Discontinued nitrofurantoin monohyd/m-cryst [Macrobid] 100 mg capsule 1 cap PO BID Discharge Orders: Discharge Order (Routine); Ordered 02/08/24 Ordered By: Parvez Villarreal Admission Data Admit Date/Time: 02/06/24 00:04 Attending Provider: Parvez Villarreal Admit Provider: Sameer Burt Primary Care Provider: Indu Ambrocio Other Providers: Sameer Burt; Johanna Cervantes; John Lopez; Kandi Smyth; Indigo Logan; Yvette Avila; Shawna Galindo; Jose Andrade; Bert Kelly; Ladan Garcia; Eddy Chapa; Booker English S; Maryana Fritz; Rachael Pagan; Brianna Medrano; Mera Granado; Michael Stevens; Mihir Mederos; Jason Beckford; Kiki Dodge; Rafa More Jr; Guillermo Joshua Other Interventions: Discharge Summary Assessment (RN) Last Done: 02/08/24 10:33
== END 2024-02-08 11:17 | disposition home or self-care (01) | DRG 690 ==
LOC: ED 14:25 → 3W 02-06 00:04

== ENCOUNTER 2024-10-13 02:25 | Observation (INO) ==
[2024-10-13] MEDS ORDERED: fentaNYL citrate PF 100 MCG/2 ML VIAL IV PRN (02:33)
--- NOTE | 2024-10-13 02:45 | Emergency Department Note ---
History of Present Illness General Chief complaint: Fall Stated complaint: FALL, R LEG DEFORMITY ?[facility] DISLOCATION History of Present Illness Maximum Pain Intensity: 10 This 84-year-old female presents ER complaining of right distal femur and knee pain after she tripped coming out of the bathroom tonight. Patient states she was unable to get up. Patient states Dr. Watson has done knee surgery before on this knee. Patient denies head injury, chest pain, abdominal pain, numbness, tingling, localized weakness. No other concerns per patient. EMS gave fentanyl in the field. Home Medications Medication Instructions Recorded Confirmed Type ferrous sulfate 325 mg (65 mg 325 mg PO 3XWK 07/17/18 10/13/24 History iron) tablet (iron) raloxifene 60 mg tablet 60 mg PO QAM 01/20/20 10/13/24 History cyanocobalamin (vitamin B-12) 500 500 mcg PO QAM 12/20/20 10/13/24 History mcg tablet (Vitamin B-12) cranberry extract 500 mg capsule 0 mg PO QAM 05/08/21 10/13/24 History (Cranberry Concentrate) potassium chloride 10 mEq 20 meq PO TID 04/09/22 10/13/24 History tablet,extended release acetaminophen 500 mg tablet 1,000 mg PO Q8 PRN Pain 02/05/24 10/13/24 History cholecalciferol (vitamin D3) 125 125 mcg PO WK 09/27/24 10/13/24 History mcg (5,000 unit) tablet (Vitamin D3) diphenhydramine 25 2 tab PO HS 09/27/24 10/13/24 History mg-acetaminophen 500 mg tablet (Tylenol PM Extra Strength) tamsulosin 0.4 mg capsule 0.4 mg PO HS #30 caps 10/04/24 10/13/24 Rx Allergies Allergy/AdvReac Type Severity Reaction Status Date / Time influenza virus vaccine, Allergy Severe [place] Verified 10/11/24 10:26 specific [place] Syndrome Sulfa (Sulfonamide Allergy Unknown Unknown Verified 10/11/24 10:26 Antibiotics) cephalexin AdvReac Mild Nausea Verified 10/11/24 10:26 Past Med/Surg History Problem List (Updated 10/13/24 @ 03:50 by Jackie Bryan PA-C) Fracture of distal end of femur (Acute) Encounter for preoperative assessment (Acute) Medical History Anemia Chronic History of colitis History of right breast cancer (2000) s/p radiation History of seizure Single episode s/p benign brain tumor excision (1998) No issues since 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 Hydronephrosis concurrent with and due to calculi of kidney and ureter Kidney stones Neuropathy involving both lower extremities Osteoarthritis Surgical History History of appendectomy History of brain surgery (1998) 1998; benign tumor excision History of colonoscopy History of hip surgery right and left due to falling History of tooth extraction History of total knee replacement R/L (2020) Hx of hysterectomy Hx of lithotripsy (01/18/21) Hx of lumpectomy Right breast- had xrt S/P cystoscopy with ureteral stent placement Multiple Family History Mother Macular degeneration Father Kidney stone Diabetes Social History Smoking Status: Never smoker Second Hand Exposure: No; Do You Dip or Chew Tobacco: No; Hx Alcohol Use: No Hx Substance Use: No Preferred Language: Swedish Communication Ability: Effective Visual Impairment: No Limitations Family Life Counselor Required: No Beliefs That Will Affect Care: None marital status: / Current Living Situation: Alone Current Living Situation Comment: son Feels Safe at Home: Yes Assistive Devices: Denture - Upper, Denture - Lower and Hearing Aid - Bilateral Review of Systems A total of 10 systems reviewed and were otherwise negative Physical Exam Vital Signs Vital Signs - 24 hr 10/13/24 02:34 10/13/24 02:55 Temperature 36.7 C Temperature Source Oral Pulse Rate 94 H 95 H Pulse Rhythm Regular Pulse Strength Normal Respiratory Rate 22 Respiratory Effort / Characteristics Non-Labored Respiratory Depth Normal Respiratory Pattern Regular Blood Pressure 113/63 Blood Pressure Mean 79 Blood Pressure Position Lying Pulse Oximetry 96 Oxygen Delivery Method Room Air Sepsis Recent Fever Within 48 Hours No Sepsis New/Unexplained Change in Mental Status No Sepsis Action Taken by Nursing No Action Required PHYSICAL EXAM: VITALS: Vitals are noted on the nurse's note and reviewed by myself. Vital signs stable. GENERAL: Pleasant elderly female with obvious right distal femur knee fracture, in no acute distress, nondiaphoretic, well-developed well-nourished. SKIN: The skin was without obvious lacerations or abrasions. Capillary reflex less than 2 seconds. HEAD: Normocephalic atraumatic. EARS: External auditory canals clear, EYES: Pupils equal round and reactive to light and accommodation. Conjunctivae without injection, sclerae without icterus. Extraocular movements intact. NOSE: Patent, turbinates without inflammation or discharge. No sinus tenderness. No septal hematoma or bleeding. MOUTH: Mucous membranes moist. Pharynx without erythema or exudate. Uvula midline. Airway patent. Tongue does not deviate. NECK: Supple without nuchal rigidity. Cervical spine is nontender. Full range of motion of the neck without tenderness. No JVD. HEART: Regular rate and rhythm LUNGS: Clear to auscultation bilaterally without wheezes, rales or rhonchi. No dullness to percussion. No retractions or accessory muscle use. No chest wall tenderness. ABDOMEN: Positive bowel sounds x 4. Normal tympanic percussion. Soft, nontender, without masses or organomegaly. No guarding or rebound tenderness. MUSCULOSKELETAL: No tenderness of the thoracic or lumbar spine. No tenderness with pelvic rocking. Right distal femur knee tender to palpation with obvious deformity. Pedal pulses +2 equal and present bilaterally. Full range of motion without tenderness to palpation in all other extremities. Peripheral pulses 2+. NEURO: Patient was alert and oriented to person place and time. Normal Mini- Mental status exam. Normal sensation to light and sharp touch. No focal neurological deficits. Course Administered Medications Discontinued Medications Ondansetron HCl (Ondansetron Inj 2 Mg/Ml 2 Ml Vial) 4 mg IV NOW STA Stop: 10/13/24 02:34 Last Admin: 10/13/24 03:00 Dose: 4 mg Documented By: LOPEZ Medical Decision Making Medical Records Attestation: I reviewed the patient's medical records. Home Medications Current Medication List: was personally reviewed by me Laboratory Data 10/13/24 02:59 10/13/24 02:59 Lab Results 10/13/24 Range/Units 02:59 WBC 16.39 H (4.8-10.8) K/ul RBC 3.80 L (4.20-5.40) M/uL Hgb 11.5 L (12.0-16.0) g/dl Hct 36.2 L (37.0-47.0) % MCV 95.3 (80.0-100.0) fL MCH 30.3 (25.0-34.0) pg MCHC 31.8 L (32.0-36.0) g/dL RDW Std Deviation 46.7 H (36.4-46.3) fL RDW Coeff of Addie 13.4 (11.5-14.5) % Plt Count 295 (130-400) K/uL MPV 9.9 (9.4-12.4) fL Immature Gran % (Auto) 0.9 % Neut % (Auto) 85.6 % Lymph % (Auto) 3.4 % Moffat % (Auto) 9.0 % Eos % (Auto) 0.4 % Baso % (Auto) 0.7 % Neut # (Auto) 14.05 H (1.40-6.50) K/uL Lymph # (Auto) 0.55 L (1.20-3.40) K/uL Moffat # (Auto) 1.47 H (0.11-0.59) K/uL Eos # (Auto) 0.07 (0.00-0.50) K/uL Baso # (Auto) 0.11 (0.00-0.20) K/uL Immature Gran # (Auto) 0.14 (0.01-0.20) K/uL Sodium 136 (136-145) mmol/L Potassium 4.3 (3.5-5.1) mmol/L Chloride 110 H (98-107) mmol/L Carbon Dioxide 19 L (21-32) mmol/L Anion Gap 7 (3-11) BUN 16 (6-23) mg/dl Creatinine 1.10 (0.6-1.2) mg/dl Est Cr Clr Drug Dosing 34.9 ml/min eGFR 49.86 BUN/Creatinine Ratio 14.5 (10-20) Glucose 146 H (70-99(Fasting)) mg/dl Calcium 8.5 L (8.6-10.3) mg/dl Magnesium 1.8 (1.7-2.4) mg/dl Imaging Data Attestation: I personally reviewed and interpreted this imaging study as follows: Radiologist's Impression: Knee X-Ray 10/13/24 02:30 EXAM: XR knee RT 1 or 2V routine CLINICAL HISTORY: FALL DEFORMITY AT RT KNEE JMF TECHNIQUE: X-ray images of the right knee were obtained in anteroposterior (AP) and lateral projections. COMPARISON: 08/07/2018. FINDINGS: Bone Structure: Displaced fracture is seen in the distal femur with volar angulation and shortening of about 2.5 cm. New finding. Intramedullary fixation marion seen in the visualized upper part of femur. Unchanged. Fabella is noted. Unchanged. Joint Spaces and Articular Surfaces: Knee joint arthroplasty is noted. Unchanged. Sclerosis surrounding the tibial component. Unchanged. Patella: Sclerotic changes of the patella are noted. Unchanged. Soft Tissues: Periarticular soft tissue swelling. New finding. Additional Findings: Knee joint/suprapattelar effusion. New finding. IMPRESSION: 1. Displaced distal femoral fracture, as detailed above. Interval is new. 2. Periarticular soft tissue swelling and suprapatellar joint effusion. Interval is new. 3. Otherwise, no significant interval changes compared to the prior study dated on 08/07/2018. Disclaimer: A subtle bone abnormality or fracture may not be readily apparent on X-rays, thus clinical correlation and further imaging including follow-up CT, MRI, or follow-up X-rays are advised as needed. Electronically signed by Raman Savage 10-13-2024 03:33 AM MDM Narrative Prior records/ancillary studies reviewed. Triage Nursing notes reviewed. Additional history obtained from EMS. The patient's history was concerning for traumatic injury Differential diagnosis: Etiologies such as fracture, dislocation, intra-abdominal, pneumothorax, intrathoracic , intracranial, neurologic, as well as other traumatic pathologies were entertained. Physical examination findings: As above. The patients vitals were stable. ER treatment provided: IV Normal Saline hydration, fentanyl and Zofran were given Knee immobilizer was placed and neurovascular status was rechecked after placement is intact [place] was ordered An order was placed for continuous cardiac monitoring. The monitor shows a rate of 60-100 with a sinus rhythm per my interpretation. On reassessment the patient felt better. Vital signs were stable. Diagnostic interpretation by me: Imaging studies: Knee and hip x-rays are concerning for distal femur fracture per my independent interpretation Consultation: A consultation was placed with hospitalist. The case was discussed and diagnostics were reviewed. The patient was admitted to their service. This appears to be consistent with comminuted distal femur fracture. Patient was placed in knee immobilizer. Medicine was consulted case discussed. Patient will be admitted to the medical service. By the evaluation outlined above emergent etiologies such as intra-abdominal, pneumothorax, pulmonary contusion, hemothorax, intracranial, neurologic,as well as others were deemed relatively unlikely. The pt informed about the findings as listed above. All questions were answered and pleased with the treatment. The chart was completed utilizing [email or web address] Speech voice recognition software. Grammatical errors, random word insertions, pronoun errors, and incomplete sentences are an occassional consequence of this system due to software limitations, ambient noise, and hardware issues. Any formal questions or concerns about the content, text, or information contained within the body of this dictation should be directly addressed to the physician fast food sales assistant for clarification. Impression & Plan Fracture of distal end of femur Discharge Plan Visit Data Chief Complaint: Fall Stated Complaint: FALL, R LEG DEFORMITY ?[facility] DISLOCATION ED Provider: Beryl Vidal ED Midlevel Provider: Jackie Bryan Discharge Problem: Fracture of distal end of femur Patient Disposition: Admitted As Inpatient Condition: Good Forms Stand Alone Forms: [employer] Prescriptions Prescriptions: No Action cyanocobalamin (vitamin B-12) [Vitamin B-12] 500 mcg Tablet 500 mcg PO QAM ferrous sulfate [iron] 325 mg (65 mg iron) Tablet 325 mg PO 3XWK Rx Instructions: take on Mondays, Wednesdays, and Fridays cranberry extract [Cranberry Concentrate] 500 mg capsule 0 mg PO QAM raloxifene 60 mg tablet 60 mg PO QAM potassium chloride 10 mEq tablet extended release 20 meq PO TID acetaminophen 500 mg tablet 1,000 mg PO Q8 PRN (Reason: Pain) diphenhydramine-acetaminophen [Tylenol PM Extra Strength] 25-500 mg Tablet 2 tab PO HS cholecalciferol (vitamin D3) [Vitamin D3] 125 mcg (5,000 unit) Tablet 125 mcg PO WK Rx Instructions: friday tamsulosin 0.4 mg capsule 0.4 mg PO HS Qty: 30 0RF Referrals Referrals: Indu Ambrocio [Primary Care Provider] - Discharge Problem: Fracture of distal end of femur Qualifiers: Encounter type: initial encounter Fracture type: closed Fracture morphology: u nspecified fracture morphology Laterality: right Qualified Code(s): S72.401A - Unspecified fracture of lower end of right femur, initial encounter for closed fracture
[2024-10-13] MEDS ORDERED: ACETAMINOPHEN 325 MG TAB PO PRN (02:49)
[2024-10-13] MEDS ORDERED: oxyCODONE HCL IR 5 MG TAB (IMMEDIATE RELEASE) PO PRN (02:49)
[2024-10-13] MEDS: ONDANSETRON INJ 2 MG/ML 2 ML VIAL IV STA (03:00)
[2024-10-13 03:20] LABS: Basophils # (auto) 0.11 K/uL (0.00-0.20); Basophils % (auto) 0.7 %; Eosinophils # (auto) 0.07 K/uL (0.00-0.50); Eosinophils % (auto) 0.4 %; Hematocrit (blood only) 36.2 % (37.0-47.0); Hemoglobin 11.5 g/dl (12.0-16.0); Immature Granulocytes # (auto) 0.14 K/uL (0.01-0.20); Immature Granulocytes % (auto) 0.9 %; Lymphocytes # (auto) 0.55 K/uL (1.20-3.40); Lymphocytes % (auto) 3.4 %; Mean Corpuscular Hemoglobin 30.3 pg (25.0-34.0); Mean Corpuscular Hgb Conc 31.8 g/dL (32.0-36.0); Mean Corpuscular Volume 95.3 fL (80.0-100.0); Mean Platelet Volume 9.9 fL (9.4-12.4); Monocytes # (auto) 1.47 K/uL (0.11-0.59); Neutrophils # (auto) 14.05 K/uL (1.40-6.50); Neutrophils % (auto) 85.6 %; Platelet Count 295 K/uL (130-400); RDW Coefficient of Variation 13.4 % (11.5-14.5); RDW Standard Deviation 46.7 fL (36.4-46.3); White Blood Count 16.39 K/ul (4.8-10.8)
[2024-10-13 03:29] LABS: BUN Creatinine Ratio 14.5 (10-20); Calcium 8.5 mg/dl (8.6-10.3); Creatinine Clr Calc Pharmacy 34.9 ml/min; Magnesium 1.8 mg/dl (1.7-2.4); Potassium 4.3 mmol/L (3.5-5.1)
--- NOTE | 2024-10-13 03:34 | XRay Report ---
EXAM: XR knee RT 1 or 2V routine CLINICAL HISTORY: FALL DEFORMITY AT RT KNEE JMF TECHNIQUE: X-ray images of the right knee were obtained in anteroposterior (AP) and lateral projections. COMPARISON: 08/07/2018. FINDINGS: Bone Structure: Displaced fracture is seen in the distal femur with volar angulation and shortening of about 2.5 cm. New finding. Intramedullary fixation marion seen in the visualized upper part of femur. Unchanged. Fabella is noted. Unchanged. Joint Spaces and Articular Surfaces: Knee joint arthroplasty is noted. Unchanged. Sclerosis surrounding the tibial component. Unchanged. Patella: Sclerotic changes of the patella are noted. Unchanged. Soft Tissues: Periarticular soft tissue swelling. New finding. Additional Findings: Knee joint/suprapattelar effusion. New finding. IMPRESSION: 1. Displaced distal femoral fracture, as detailed above. Interval is new. 2. Periarticular soft tissue swelling and suprapatellar joint effusion. Interval is new. 3. Otherwise, no significant interval changes compared to the prior study dated on 08/07/2018. Disclaimer: A subtle bone abnormality or fracture may not be readily apparent on X-rays, thus clinical correlation and further imaging including follow-up CT, MRI, or follow-up X-rays are advised as needed. Electronically signed by Raman Savage 10-13-2024 03:33 AM
--- NOTE | 2024-10-13 03:41 | History & Physical Report ---
Date of Service October 13, 2024 Assessment & Plan (1) Fracture of distal end of femur: Plan: Traumatic distal femoral fracture left Complicated UTI, recent urologic procedure, history hydronephrosis/urolithiasis; urine CS from 10/01 growing Klebsiella resistant to ciprofloxacin Rx prescribed to patient. Patient currently not septic. Anemia secondary to hematuria right breast cancer status post surgery, radiation meningioma status post surgery hx seizure disorder, stable off AED therapy history of Guillain Tillson syndrome Hyperglycemia rule out DM [facility] Orthopedics consult Re: Left distal femoral fracture N.p.o. until patient seen by Orthopedics in anticipation of procedure Acceptable risk for cardiac complications resulting from prospective procedure Revised Cardiac Risk Index (RCRI): 1. High-risk type of surgery (examples include vascular and any open intraperitoneal or intrathoracic procedures). No 2. History of ischemic heart disease (history of myocardial infarction or positive exercise test, current compliant of chest pain considered to be secondary to myocardial ischemia, use of nitrate therapy, or ECG with pathological Q waves; do not count prior coronary revascularization procedure unless one of the other criteria for ischemic heart disease is present). No 3. History of heart failure. No 4. History of cerebrovascular disease. No 5. Diabetes mellitus requiring treatment with insulin. No 6. Preoperative serum creatinine >2.0. No Pt has revised cardiac index score of 0 points. (Class I Risk.) 3.9 % 30-day risk of , ID, or cardiac arrest. Acceptable risk for cardiac complications if surgery recommended by Orthopedics and patient/family agreeable to attendant procedural benefits and risks.. Urine CS, Ceftriaxone Check hemoglobin A1c DVT prophylaxis. SCDs RE hematuria Full code Text document was generated using [employer] voice recognition software. It may contain grammatical or spelling errors. Kindly contact undersigned for clarification of any documentation item in question. History of Present Illness Chief Complaint: Fall, right knee pain Primary Care Provider: Indu Ambrocio History obtained from patient and records. Medical history significant for right breast cancer status post surgery, radiation, meningioma status post surgery, past history of seizure disorder not currently on AED therapy, hx Guillain Tillson syndrome, history hydronephrosis, urolithiasis. Recent confinement January 2024 for left-sided pyelonephritis/urolithiasis and colitis. Patient seen [place] [facility] [place]. Patient underwent cystoscopy with stent placement, stone distraction/extraction last 10/04. Postprocedure Cipro course prescribed. Persistent hematuria without unusual discomfort. No fever, no chills. Patient tripped coming out of her bathroom last night. Landed on her right knee without head trauma. No chest pain, SOB, syncope, no LOC. Achy right knee pain, patient unable to get up. Patient called for her son who subsequently called EMS. Patient brought to ER for evaluation. Medical History as above Surgical History : Knee surgery, hip surgery, breast surgery, urologic procedure, brain tumor surgery Family History : Diabetes Personal/Social history : Non-smoker, no EtOH intake, retired [employer] employee Allergies Allergy/AdvReac Type Severity Reaction Status Date / Time influenza virus vaccine, Allergy Severe Gillean Verified 10/11/24 10:26 specific Tillson Syndrome Sulfa (Sulfonamide Allergy Unknown Unknown Verified 10/11/24 10:26 Antibiotics) cephalexin AdvReac Mild Nausea Verified 10/11/24 10:26 Home Medications Medication Instructions Recorded Confirmed Type ferrous sulfate 325 mg (65 mg 325 mg PO 3XWK 07/17/18 10/13/24 History iron) tablet (iron) raloxifene 60 mg tablet 60 mg PO QAM 01/20/20 10/13/24 History cyanocobalamin (vitamin B-12) 500 500 mcg PO QAM 12/20/20 10/13/24 History mcg tablet (Vitamin B-12) cranberry extract 500 mg capsule 0 mg PO QAM 05/08/21 10/13/24 History (Cranberry Concentrate) potassium chloride 10 mEq 20 meq PO TID 04/09/22 10/13/24 History tablet,extended release acetaminophen 500 mg tablet 1,000 mg PO Q8 PRN Pain 02/05/24 10/13/24 History cholecalciferol (vitamin D3) 125 125 mcg PO WK 09/27/24 10/13/24 History mcg (5,000 unit) tablet (Vitamin D3) diphenhydramine 25 2 tab PO HS 09/27/24 10/13/24 History mg-acetaminophen 500 mg tablet (Tylenol PM Extra Strength) tamsulosin 0.4 mg capsule 0.4 mg PO HS #30 caps 10/04/24 10/13/24 Rx Past Med/Surg History Problem List (Updated 10/13/24 @ 03:50 by Jackie Bryan PA-C) Fracture of distal end of femur (Acute) Encounter for preoperative assessment (Acute) Medical History Anemia Chronic History of colitis History of right breast cancer (2000) s/p radiation History of seizure Single episode s/p benign brain tumor excision (1998) No issues since 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 (1998) Mild residual LE neuropathy Hydronephrosis concurrent with and due to calculi of kidney and ureter Kidney stones Neuropathy involving both lower extremities Osteoarthritis Surgical History History of appendectomy History of brain surgery (1998) 1998; benign tumor excision History of colonoscopy History of hip surgery right and left due to falling History of tooth extraction History of total knee replacement R/L (2020) Hx of hysterectomy Hx of lithotripsy (01/18/21) Hx of lumpectomy Right breast- had xrt S/P cystoscopy with ureteral stent placement Multiple Family History Mother Macular degeneration Father Kidney stone Diabetes Social History Smoking Status: Never smoker Tobacco Type: Declines Second Hand Exposure: No; Do You Dip or Chew Tobacco: No; Hx Alcohol Use: No Hx Substance Use: No Preferred Language: South African Communication Ability: Effective Visual Impairment: No Limitations Fur Vault Attendant Required: No Beliefs That Will Affect Care: None marital status: / Current Living Situation: Alone Current Living Situation Comment: son Feels Safe at Home: Yes Assistive Devices: None Review of Systems Review of Systems: As per HPI, all other systems reviewed and negative Physical Exam Physical Exam: GENERAL: Uncomfortable, no respiratory distress SKIN: pallor, warm HEENT: Pale palpebral conjunctivae, no ptosis, dry buccal mucosa NECK : Supple, no tenderness CHEST : Decreased breath sounds, no tenderness HEART : RRR, no obvious murmurs ABDOMEN: Some distention,no tenderness EXTREMITIES :RLE splint, no other conspicuous deformities noted NEUROLOGIC : Coherent, no facial asymmetry, no other gross focality Results & Data Results & Data Vital Signs (Past 12 Hours) Vital Signs Temp Pulse Resp BP Pulse Ox O2 Del Method 10/13/24 02:55 95 H 10/13/24 02:34 36.7 C 94 H 22 113/63 96 Room Air Laboratory Results Laboratory Results WBC 16.39 K/ul (4.8-10.8) H 10/13/24 02:59 RBC 3.80 M/uL (4.20-5.40) L 10/13/24 02:59 Hgb 11.5 g/dl (12.0-16.0) L 10/13/24 02:59 Hct 36.2 % (37.0-47.0) L 10/13/24 02:59 MCV 95.3 fL (80.0-100.0) 10/13/24 02:59 MCH 30.3 pg (25.0-34.0) 10/13/24 02:59 MCHC 31.8 g/dL (32.0-36.0) L 10/13/24 02:59 RDW Std Deviation 46.7 fL (36.4-46.3) H 10/13/24 02:59 RDW Coeff of Addie 13.4 % (11.5-14.5) 10/13/24 02:59 Plt Count 295 K/uL (130-400) 10/13/24 02:59 MPV 9.9 fL (9.4-12.4) 10/13/24 02:59 Immature Gran % (Auto) 0.9 % 10/13/24 02:59 Neut % (Auto) 85.6 % 10/13/24 02:59 Lymph % (Auto) 3.4 % 10/13/24 02:59 Woodward % (Auto) 9.0 % 10/13/24 02:59 Eos % (Auto) 0.4 % 10/13/24 02:59 Baso % (Auto) 0.7 % 10/13/24 02:59 Neut # (Auto) 14.05 K/uL (1.40-6.50) H 10/13/24 02:59 Lymph # (Auto) 0.55 K/uL (1.20-3.40) L 10/13/24 02:59 Woodward # (Auto) 1.47 K/uL (0.11-0.59) H 10/13/24 02:59 Eos # (Auto) 0.07 K/uL (0.00-0.50) 10/13/24 02:59 Baso # (Auto) 0.11 K/uL (0.00-0.20) 10/13/24 02:59 Immature Gran # (Auto) 0.14 K/uL (0.01-0.20) 10/13/24 02:59 Sodium 136 mmol/L (136-145) 10/13/24 02:59 Potassium 4.3 mmol/L (3.5-5.1) 10/13/24 02:59 Chloride 110 mmol/L (98-107) H 10/13/24 02:59 Carbon Dioxide 19 mmol/L (21-32) L 10/13/24 02:59 Anion Gap 7 (3-11) 10/13/24 02:59 BUN 16 mg/dl (6-23) 10/13/24 02:59 Creatinine 1.10 mg/dl (0.6-1.2) 10/13/24 02:59 Est Cr Clr Drug Dosing 34.9 ml/min 10/13/24 02:59 eGFR 49.86 10/13/24 02:59 BUN/Creatinine Ratio 14.5 (10-20) 10/13/24 02:59 Glucose 146 mg/dl (70-99(Fasting)) H 10/13/24 02:59 Calcium 8.5 mg/dl (8.6-10.3) L 10/13/24 02:59 Magnesium 1.8 mg/dl (1.7-2.4) 10/13/24 02:59 Impressions Knee X-Ray 10/13/24 02:30 EXAM: XR knee RT 1 or 2V routine CLINICAL HISTORY: FALL DEFORMITY AT RT KNEE F TECHNIQUE: X-ray images of the right knee were obtained in anteroposterior (AP) and lateral projections. COMPARISON: 08/07/2018. FINDINGS: Bone Structure: Displaced fracture is seen in the distal femur with volar angulation and shortening of about 2.5 cm. New finding. Intramedullary fixation marion seen in the visualized upper part of femur. Unchanged. Fabella is noted. Unchanged. Joint Spaces and Articular Surfaces: Knee joint arthroplasty is noted. Unchanged. Sclerosis surrounding the tibial component. Unchanged. Patella: Sclerotic changes of the patella are noted. Unchanged. Soft Tissues: Periarticular soft tissue swelling. New finding. Additional Findings: Knee joint/suprapattelar effusion. New finding. IMPRESSION: 1. Displaced distal femoral fracture, as detailed above. Interval is new. 2. Periarticular soft tissue swelling and suprapatellar joint effusion. Interval is new. 3. Otherwise, no significant interval changes compared to the prior study dated on 08/07/2018. Disclaimer: A subtle bone abnormality or fracture may not be readily apparent on X-rays, thus clinical correlation and further imaging including follow-up CT, MRI, or follow-up X-rays are advised as needed. Electronically signed by Raman Savage 10-13-2024 03:33 AM Diagnostic Findings EKG as per my interpretation rate 70, LAD, LAFB, septal infarct, no ischemia, low voltage (1) Fracture of distal end of femur Encounter type: initial encounter Fracture morphology: unspecified fracture morphology Fracture type: closed Laterality: right Qualified Code(s): S 72.401A - Unspecified fracture of lower end of right femur, initial encounter for closed fracture
[2024-10-13] MEDS ORDERED: LORazepam 0.5 MG TAB PO PRN (03:44)
[2024-10-13] MEDS: MoRPHine SULFATE 2 MG/ML CARP IV PRN (03:50)
--- NOTE | 2024-10-13 03:53 | XRay Report ---
EXAM: XR chest 1V portable CLINICAL HISTORY: FALL DEFORMITY AT RT KNEE PRE OP CHEST [facility] TECHNIQUE: An X-ray image of the chest is obtained in AP projection. COMPARISON: Chest x-ray on 02/05/2024. FINDINGS: Pulmonary Parenchyma: Prominent bronchovascular markings are noted. Lungs are clear bilaterally. No evidence of consolidation, collapse, or focal opacities. No pulmonary nodules are identified. No evidence of pleural effusion or pleural thickening. Heart and Mediastinum: Heart size and shape are normal. No mediastinal widening or masses. No hilar or mediastinal lymphadenopathy. Bony Thorax: Bony thorax appears intact without fractures or deformities. Soft Tissues: Soft tissues overlying the chest wall are unremarkable. IMPRESSION: 1. Prominent bronchovascular markings are noted. 2. No acute cardiopulmonary abnormalities. 3. No change compared with the previous chest X-ray. Electronically signed by Raman Savage 10-13-2024 03:52 AM
[2024-10-13 03:54] LABS: Appearance Urine Turbid (Clear); Bacteria Urine Automated 4+ (None Seen); Bilirubin Urine Negative (Negative); Blood Urine 3+ (Negative); Color Urine Orange; Glucose Urine UA Negative (Negative); Ketones Urine Negative (Negative); Leukocyte Esterase Urine 3+ (Negative); Nitrite Urine Positive (Negative); Protein Urine 3+ (Negative); RBC Urine Automated >20 /hpf (0-2); Specific Gravity Urine 1.013 (1.000-1.030); Urobilinogen Urine Negative (Negative); WBC Urine Automated >50 /hpf (0-5); pH Urine 5.5 (4.5-7.5)
--- NOTE | 2024-10-13 03:57 | XRay Report ---
EXAM: XR hip RT 2V w pelvis CLINICAL HISTORY: FALL DEFORMITY AT RT KNEE [facility] TECHNIQUE: X-ray images of the right hip joints and pelvis were obtained in anteroposterior (AP) and lateral projections. COMPARISON: XR hip left, 04/10/2022, was reviewed as right hip joint included. FINDINGS: Pelvic Bones: Diffuse osteopenia. No obvious acute fractures. Right hip joint dynamic hip screws. Left femoral medullary nail is noted. Right Hip Joint: Degenerative changes of right hip joint. Osteophytes, mild joint space narrowing, and sclerosis are noted. Degenerative changes of sacroiliac joints. Symphysis Pubis: Degenerative changes of symphysis pubis. Soft Tissues: Visualized soft tissues are normal and unremarkable. Additional Findings: Bilateral Double J stent is noted. Visualized kidneys showed bilateral stones. IMPRESSION: 1. Right hip DHS. 2. Degenerative changes of right hip joint. 3. No obvious acute fractures. 4. Osteopenia. 5. No significant changes compared to previous study. DISCLAIMER:A subtle bone abnormality or fracture may not be readily apparent on x-rays, thus clinical correlation and further imaging including follow up CT, MRI, or follow up x-rays are advised as needed. Electronically signed by Raman Savage 10-13-2024 03:56 AM
[2024-10-13] MEDS: LORazepam 0.5 MG TAB PO STA (04:14)
[2024-10-13] MEDS: SODIUM CHLORIDE 0.9% 1,000 ML IV ONE (04:28)
[2024-10-13] MEDS: cefTRIAXone SODIUM 2,000 MG/50 ML BAG IV SCH (04:28)
--- NOTE | 2024-10-13 05:01 | Emergency Department Note ---
ED Visit Note I was consulted by the Advanced Practice Provider. I personally approved the management plan and take responsibility for the patient management. This includes the aspects of: -History/Physical -MDM -I independently interpreted the following studies:Studies and results .
[2024-10-13 07:29] VITALS: RESP 16
--- NOTE | 2024-10-13 08:05 | Orthopedic Consultation ---
Date of Consultation October 13, 2024 Assessment & Plan (1) Periprosthetic fracture around internal prosthetic right knee joint: Discussed with the patient that she has a complicated fracture due to its comminuted nature, as well as the hardware in her proximal and mid femur and her total knee replacement. This will need to be managed by a orthopedic traumatologist specialized in these complicated fractures. Therefore the patient needs to be transferred to a higher level facility. I communicated this to her hospitalist team. In the interim she can remain in the knee immobilizer that was placed in the emergency room as this is giving her some support and relief of her pain. Patient will need treatment for her urological issues and nausea and dry heaves as well. (2) Dry heaves: (3) Nausea vomiting and diarrhea: History of Present Illness Attending Physician: Tho Langston MD History of Present Illness 84-year-old female, fell last night at home just after midnight. Immediate onset of right knee pain. She says she recently had a procedure by Dr. Joshua in urology to deal with some kidney stones and has been having nausea since that time. She previously underwent a right total knee arthroplasty by Dr. Santiago many years ago. she has also had bilateral intramedullary nails placed in both hips for previous hip fractures. On the right side this appears to be an intermediate length Synthes nail. She was brought by ambulance to the emergency room last night. X-rays showed a displaced comminuted distal femur periprosthetic fracture. She was admitted to the internal medicine service. Orthopedics was consulted this morning. Patient was seen and examined on the floor. She denies any numbness or tingling in her foot. She points to her distal femur where the pain is. Denies numbness or tingling. She was ambulating without an assistive device Prior to the fall. Allergies Allergy/AdvReac Type Severity Reaction Status Date / Time influenza virus vaccine, Allergy Severe Gillean Verified 10/11/24 10:26 specific [place] Syndrome Sulfa (Sulfonamide Allergy Unknown Unknown Verified 10/11/24 10:26 Antibiotics) cephalexin AdvReac Mild Nausea Verified 10/11/24 10:26 Home Medications Medication Instructions Recorded Confirmed Type ferrous sulfate 325 mg (65 mg 325 mg PO 3XWK 07/17/18 10/13/24 History iron) tablet (iron) raloxifene 60 mg tablet 60 mg PO QAM 02/27/20 11/20/24 History cyanocobalamin (vitamin B-12) 500 500 mcg PO QAM 12/20/20 10/13/24 History mcg tablet (Vitamin B-12) cranberry extract 500 mg capsule 0 mg PO QAM 05/08/21 10/13/24 History (Cranberry Concentrate) potassium chloride 10 mEq 20 meq PO TID 04/09/22 10/13/24 History tablet,extended release acetaminophen 500 mg tablet 1,000 mg PO Q8 PRN Pain 02/05/24 10/13/24 History cholecalciferol (vitamin D3) 125 125 mcg PO WK 09/27/24 10/13/24 History mcg (5,000 unit) tablet (Vitamin D3) diphenhydramine 25 2 tab PO HS 09/27/24 10/13/24 History mg-acetaminophen 500 mg tablet (Tylenol PM Extra Strength) tamsulosin 0.4 mg capsule 0.4 mg PO HS #30 caps 10/04/24 10/13/24 Rx amoxicillin 500 mg-potassium 1 tab PO BID 5 days #10 tabs 10/13/24 Rx clavulanate 125 mg tablet (Augmentin) Patient History Medical History Anemia Chronic History of colitis History of right breast cancer (2000) s/p radiation History of seizure Single episode s/p benign brain tumor excision (1998) No issues since 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 Hx of Guillain-[place] syndrome (1998) After flu shot (1998) Mild residual LE neuropathy Hydronephrosis concurrent with and due to calculi of kidney and ureter Kidney stones Neuropathy involving both lower extremities Osteoarthritis Surgical History History of appendectomy History of brain surgery (1998) 1998; benign tumor excision History of colonoscopy History of hip surgery right and left due to falling History of tooth extraction History of total knee replacement R/L (2020) Hx of hysterectomy Hx of lithotripsy (01/18/21) Hx of lumpectomy Right breast- had xrt S/P cystoscopy with ureteral stent placement Multiple Family History Mother Macular degeneration Father Kidney stone Diabetes Social History Smoking Status: Never smoker Tobacco Type: Declines Second Hand Exposure: No; Do You Dip or Chew Tobacco: No; Tobacco Cessation Education Requested by Patient: No Hx Alcohol Use: No Hx Substance Use: No Preferred Language: Palestinian Communication Ability: Effective Visual Impairment: No Limitations Pcas Required: No Beliefs That Will Affect Care: None marital status: / Current Living Situation: Alone Current Living Situation Comment: son Other Information That Helps Us Care for You: No Feels Safe at Home: Yes Safety Concerns: Feels Safe At This Time Assistive Devices: None Physical Exam Physical Exam: on exam she is lying supine in bed alert and oriented x 3, however she is not feeling well as she is dry heaving secondary to nausea which she has had since h er stones procedure last week she says. Right lower extremity exam reveals the patient have a well-healed anterior midline incision from total knee arthroplasty. The skin is intact over the distal femur. I am not able to visualize all of the skin over the lateral aspect of her hip due to significant pain with movement, however the skin that I can see appears to be intact. There is deformity noted at the knee with swelling. The leg is shortened and the knee is flexed. Distally she has palpable dorsalis pedis and posterior tibial pulses. She is sensory intact to light touch in the dorsal and plantar aspects of the foot. Results & Data Vital Signs (Past 12 Hours) Vital Signs Temp Pulse Pulse Pulse Resp BP BP 10/13/24 07:28 36.7 C 94 H 16 95/62 L 10/13/24 05:35 36.9 C 84 18 105/65 10/13/24 04:36 10/13/24 04:24 87 20 10/13/24 04:12 82 18 10/13/24 04:00 83 14 106/55 L 10/13/24 03:30 89 14 106/60 10/13/24 03:00 90 14 117/68 10/13/24 02:55 95 H 10/13/24 02:34 36.7 C 94 H 22 113/63 10/13/24 02:33 113/63 Pulse Ox O2 Del Method 10/13/24 07:28 94 Room Air 10/13/24 05:35 96 Room Air 10/13/24 04:36 Room Air 10/13/24 04:24 95 10/13/24 04:12 92 10/13/24 04:00 95 Room Air 10/13/24 03:30 97 Room Air 10/13/24 03:00 97 Room Air 10/13/24 02:55 10/13/24 02:34 96 Room Air 10/13/24 02:33 Diagnostic Findings X-rays done in the emergency room 2 views of the right knee and 3 views of the right hip are independently interpreted by me. In her right hip she has a cephalomedullary marion, appears to be a Synthes helical blade intermediate length nail. Intertrochanteric femur fracture is healed and acceptable alignment. In her right knee she has a comminuted Periprostheticdistal femur fracture with valgus angulation in the coronal plane and apex posterior angulation in the sagittal plane. total knee components appear to be well-fixed without any evidence of loosening.
[2024-10-13 08:15] LABS: Estimated Average Glucose 111 mg/dl; Hemoglobin A1C 5.5 % (4.5-5.6)
[2024-10-13] MEDS: FERROUS SULFATE 325 MG TAB PO SCH (09:56)
[2024-10-13] MEDS: RALOXIFENE HCL 60 MG TAB PO SCH (09:56)
[2024-10-13] MEDS: CYANOCOBALAMIN (B-12) 500 MCG TABLET PO SCH (09:56)
[2024-10-13] MEDS: PROMETHAZINE 6.25 MG/50.25 ML BAG IV PRN (09:56)
--- NOTE | 2024-10-13 14:06 | Discharge Summary ---
Date of Service October 13, 2024 Admission HPI Per Admitting Provider History obtained from patient and records. Medical history significant for right breast cancer status post surgery, radiation, meningioma status post surgery, past history of seizure disorder not currently on AED therapy, hx Guillain Cantrall syndrome, history hydronephrosis, urolithiasis. Recent confinement January 2024 for left-sided pyelonephritis/urolithiasis and colitis. Patient seen on follow-up visit at [facility] urology office 2 days ago. Patient underwent cystoscopy with stent placement, stone distraction/extraction last 10/04. Postprocedure Cipro course prescribed. Persistent hematuria without unusual discomfort. No fever, no chills. Patient tripped coming out of her bathroom last night. Landed on her right knee without head trauma. No chest pain, SOB, syncope, no LOC. Achy right knee pain, patient unable to get up. Patient called for her son who subsequently called EMS. Patient brought to ER for evaluation. Medical History as above Surgical History : Knee surgery, hip surgery, breast surgery, urologic procedure, brain tumor surgery Family History : Diabetes Personal/Social history : Non-smoker, no EtOH intake, retired [employer] employee Admission Exam Per Admitting Provider GENERAL: Uncomfortable, no respiratory distress SKIN: pallor, warm HEENT: Pale palpebral conjunctivae, no ptosis, dry buccal mucosa NECK : Supple, no tenderness CHEST : Decreased breath sounds, no tenderness HEART : RRR, no obvious murmurs ABDOMEN: Some distention,no tenderness EXTREMITIES :RLE splint, no other conspicuous deformities noted NEUROLOGIC : Coherent, no facial asymmetry, no other gross focality Principal Diagnosis Complicated femoral fracture Complicated UTI Discharge Exam GENERAL: WD/WN elderly F in no resp. distress, + nausea HEENT: NC/AT, EOMI NECK : Supple, no tenderness CHEST : Decreased breath sounds, no tenderness HEART : RRR, no obvious murmurs ABDOMEN: Some distention,no tenderness EXTREMITIES :RLE splint NEUROLOGIC : Coherent, no facial asymmetry, speech fluent, moves extremities SKIN: warm, dry Discharge Data Allergies Allergy/AdvReac Type Severity Reaction Status Date / Time influenza virus vaccine, Allergy Severe Gillean Verified 10/11/24 10:26 specific [place]rall Syndrome Sulfa (Sulfonamide Allergy Unknown Unknown Verified 10/11/24 10:26 Antibiotics) cephalexin AdvReac Mild Nausea Verified 10/11/24 10:26 Consultations 10/13/24 02:45 ED Decision to Admit Stat 10/13/24 03:50 Consult Orthopedic Surgery Routine Hospital Course (1) Fracture of distal end of femur: Tra[facility] Re: Left distal femoral fracture Periprosthetic fracture around internal prosthetic right knee joint: Discussed with the patient that she has a complicated fracture due to its comminuted nature, as well as the hardware in her proximal and mid femur and her total knee replacement. This will need to be managed by a orthopedic traumatologist specialized in these complicated fractures. Therefore the patient needs to be transferred to a higher level facility. In the interim she can remain in the knee immobilizer that was placed in the emergency room as this is giving her some support and relief of her pain. --> patient to be transferred to [facility] for further evaluation and care Acceptable risk for cardiac complications resulting from prospective procedure Revised Cardiac Risk Index (RCRI): 1. High-risk type of surgery (examples include vascular and any open intraperitoneal or intrathoracic procedures). No 2. History of ischemic heart disease (history of myocardial infarction or posit angel exercise test, current compliant of chest pain considered to be secondary to myocardial ischemia, use of nitrate therapy, or ECG with pathological Q waves; do not count prior coronary revascularization procedure unless one of the other criteria for ischemic heart disease is present). No 3. History of heart failure. No 4. History of cerebrovascular disease. No 5. Diabetes mellitus requiring treatment with insulin. No 6. Preoperative serum creatinine >2.0. No Pt has revised cardiac index score of 0 points. (Class I Risk.) 3.9 % 30-day risk of , [place], or cardiac arrest. Acceptable risk for cardiac complications if surgery recommended by Orthopedics and patient/family agreeable to attendant procedural benefits and risks. Complicated UTI, recent urologic procedure, history hydronephrosis/urolithiasis; urine CS from 10/01 growing Klebsiella resistant to ciprofloxacin Rx prescribed to patient. Patient currently not septic. Started on ceftriaxone - cont. Current Urine cultx - pending Anemia secondary to hematuria, monitor H&H right breast cancer status post surgery, radiation meningioma status post surgery hx seizure disorder, stable off AED therapy history of Guillain Cantrall syndrome Hyperglycemia rule out DM, current A1c 5.5% DVT prophylaxis. SCDs RE hematuria Full code Total Time Total Time Spent Total Time Spent (In Minutes): 40 Discharge Plan Discharge Items Patient Disposition: Transfer Acute Care Hospital Reason For Visit: L FEMUR FX, COMP UTI Discharge Diagnosis: Complicated femoral fracture Complicated UTI Condition on Discharge: Good Activity: Per Instructions section Non-emergency contact: Hospitalist and Surgeon Call non-emergency contact if: you have any medication questions and your symptoms worsen Follow-up/Referrals: Indu Ambrocio [Primary Care Provider] - Diet: Nothing by Mouth Addtl Attending Provider Instructions: Patient to be transferred to [facility] given her complex femoral fracture. Pending Studies at Discharge: Yes Studies:: final urine cultx Stand-Alone Forms: My [facility] Skilled Items Patient informed of condition?: Yes DNR: No Discharge Level of Care: Other Communicable Disease: No Discharge Prognosis: Other Lines: Peripheral IV Urinary Catheter: No Medications and DC Order Prescriptions: Continued cyanocobalamin (vitamin B-12) [Vitamin B-12] 500 mcg Tablet 500 mcg PO QAM ferrous sulfate [iron] 325 mg (65 mg iron) Tablet 325 mg PO 3XWK Rx Instructions: take on Mondays, Wednesdays, and Fridays cranberry extract [Cranberry Concentrate] 500 mg capsule 0 mg PO QAM raloxifene 60 mg tablet 60 mg PO QAM potassium chloride 10 mEq tablet extended release 20 meq PO TID acetaminophen 500 mg tablet 1,000 mg PO Q8 PRN (Reason: Pain) diphenhydramine-acetaminophen [Tylenol PM Extra Strength] 25-500 mg Tablet 2 tab PO HS cholecalciferol (vitamin D3) [Vitamin D3] 125 mcg (5,000 unit) Tablet 125 mcg PO WK Rx Instructions: friday tamsulosin 0.4 mg capsule 0.4 mg PO HS Qty: 30 0RF Discontinued amoxicillin-pot clavulanate [Augmentin] 500-125 mg tablet 1 tab PO BID 5 Days Qty: 10 0RF Discharge Orders: Discharge Order (Routine); Ordered 10/13/24 Ordered By: Tho Langston Admission Data Admit Date/Time: 10/13/24 03:43 Attending Provider: Tho Langston Admit Provider: Maykel Tinsley Primary Care Provider: Indu Ambrocio Other Providers: Edward Perales; Maykel Tinsley
[2024-10-13] MEDS: ONDANSETRON INJ 2 MG/ML 2 ML VIAL IV PRN (14:14)
[2024-10-13 14:22] VITALS: BP 105/68; TEMP 99.2; O2SAT 95
[2024-10-13 14:26] VITALS: PULSE 84
[2024-10-13] MEDS ORDERED: TAMSULOSIN HCL 0.4 MG CAP PO SCH (21:00)
--- NOTE | 2024-10-14 05:58 | Electrocardiogram Report ---
Test Reason : Blood Pressure : */* mmHG Vent. Rate : 88 BPM Atrial Rate : 88 BPM P-R Int : 160 ms QRS Dur : 70 ms QT Int : 358 ms P-R-T Axes : 66 2 68 degrees QTcB Int : 433 ms Normal sinus rhythm Low voltage QRS Borderline ECG When compared with ECG of 05-Feb-2024 15:36, No significant change was found Confirmed by Omari Matthew ([id number]) on 10/14/2024 5:57:37 AM Referred By: REFERRED SELF Confirmed By: Omari Matthew
== END 2024-10-13 15:25 | disposition short-term general hospital (02) | DRG 534 ==
LOC: ED 02:25 → INTOOBSV 03:43 → 3N 03:43

== ENCOUNTER 2024-10-16 11:37 | Inpatient (IN) ==
--- NOTE | 2024-10-17 11:38 | History & Physical Report ---
Date of Service October 17, 2024 Assessment & Plan (1) Periprosthetic fracture around internal prosthetic right knee joint: Plan: Periprosthetic fracture around internal prosthetic right knee joint following a fall on 10/13/2024 Status post right distal femur open reduction and internal fixation by Dr. Ayah Mooney at [facility] due to complex nature of the fracture. 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 Transfer from [facility] following right distal femur open reduction and internal fixation on 10/14/2024 Primary Care Provider: Indu Ambrocio She is an 84-year-old female with significant past medical history of right breast cancer status post surgery, and radiation, meningioma s/p surgery, history of seizure disorder not on any medication currently, history of Guillain-Sandra syndrome and also hydronephrosis and urolithiasis apparently has had a fall on 10/13/2024 when she tripped coming out of bathroom the night before and landed on her right knee without any head trauma. She was noted to have a periprosthetic fracture of the right knee joint and was evaluated by orthopedic surgeon in the emergency room and she was transferred to [facility] for continued care as the fracture was complex to be repaired in this hospital. She also had UTI with Pseudomonas and has been on treatment with ceftriaxone. She has had right distal femur open reduction internal fixation on of this month at [facility] by Dr. Ayah Mooney and following the procedure she remained stable subsequent days at [facility]. She was transferred to [facility] this morning for continuation of care and possible placement for rehab. Except weakness she denies any other significant symptoms this morning. Allergies Allergy/AdvReac Type Severity Reaction Status Date / Time influenza virus vaccine, Allergy Severe Gillean Verified 10/11/24 10:26 specific [place] Syndrome Sulfa (Sulfonamide Allergy Unknown Unknown Verified 10/11/24 10:26 Antibiotics) cephalexin AdvReac Mild Nausea Verified 10/11/24 10:26 Home Medications Medication Instructions Recorded Confirmed Type ferrous sulfate 325 mg (65 mg 325 mg PO 3XWK 07/17/18 10/13/24 History iron) tablet (iron) raloxifene 60 mg tablet 60 mg PO QAM 01/20/20 10/13/24 History cyanocobalamin (vitamin B-12) 500 500 mcg PO QAM 12/20/20 10/13/24 History mcg tablet (Vitamin B-12) cranberry extract 500 mg capsule 0 mg PO QAM 05/08/21 10/13/24 History (Cranberry Concentrate) potassium chloride 10 mEq 20 meq PO TID 04/09/22 10/13/24 History tablet,extended release acetaminophen 500 mg tablet 1,000 mg PO Q8 PRN Pain 02/05/24 10/13/24 History cholecalciferol (vitamin D3) 125 125 mcg PO WK 09/27/24 10/13/24 History mcg (5,000 unit) tablet (Vitamin D3) diphenhydramine 25 2 tab PO HS 09/27/24 10/13/24 History mg-acetaminophen 500 mg tablet (Tylenol PM Extra Strength) tamsulosin 0.4 mg capsule 0.4 mg PO HS #30 caps 10/04/24 10/13/24 Rx Past Med/Surg History Problem List (Updated 10/17/24 @ 00:06 by Tr Hudson) Dry heaves Periprosthetic fracture around internal prosthetic right knee joint Fracture of distal end of femur (Acute) Encounter for preoperative assessment (Acute) Medical History Anemia Chronic History of colitis History of right breast cancer (2000) s/p radiation History of seizure Single episode s/p benign brain tumor excision (1998) No issues since 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 Hx of Guillain-[place] syndrome (1998) After flu shot (1998) Mild residual LE neuropathy Hydronephrosis concurrent with and due to calculi of kidney and ureter Kidney stones Neuropathy involving both lower extremities Osteoarthritis Surgical History History of appendectomy History of brain surgery (1998) 1998; benign tumor excision History of colonoscopy History of hip surgery right and left due to falling History of tooth extraction History of total knee replacement R/L (2020) Hx of hysterectomy Hx of lithotripsy (01/18/21) Hx of lumpectomy Right breast- had xrt S/P cystoscopy with ureteral stent placement Multiple Family History Mother Macular degeneration Father Kidney stone Diabetes Social History Smoking Status: Never smoker Tobacco Type: Declines Second Hand Exposure: No; Do You Dip or Chew Tobacco: No; Hx Alcohol Use: No Hx Substance Use: No Preferred Language: Lithuanian Communication Ability: Effective Visual Impairment: No Limitations Rn Surgery Icu Required: No Beliefs That Will Affect Care: Yazidi Yazidi Beliefs: Hinduism marital status: / Current Living Situation: Alone Current Living Situation Comment: son Feels Safe at Home: Yes Assistive Devices: None Review of Systems Review of Systems: All systems reviewed and are unremarkable except as noted below Physical Exam Physical Exam: Lying in bed without any acute distress Constitutional: + ill appearing and average body habitus Eyes: PERRL, conjunctivae normal, anicteric sclerae ENMT: external ear and nose normal, oropharynx normal Neck: trachea midline, no thyromegaly Respiratory: no respiratory distress Auscultation: lungs clear to auscultation bilaterally Cardiovascular: Rate/Rhythm: regular rate and regular rhythm; not tachycardic Heart Sounds: normal S1 and normal S2; no murmur Extremities: no edema Gastrointestinal (Abdomen): Inspection/Auscultation: normal bowel sounds; abdomen not distended Percussion/Palpation: abdomen soft; abdomen nontender Musculoskeletal: Right knee and leg in your long brace. No sensory impairment in bilateral legs and no motor disability Neurologic: normal touch/pain/proprioception and moves all extremities (Right knee in a brace and non mobile status) Lymphatic: no cervical or axillary lymphadenopathy Results & Data Results & Data Vital Signs (Past 12 Hours) Vital Signs Temp Pulse Resp BP Pulse Ox O2 Del Method 10/17/24 10:40 37.0 C 94 H 18 133/78 97 Room Air Code Status & VTE Plan VTE Prophylaxis Plan VTE Prophylaxis will be ordered: Yes
[2024-10-17] MEDS ORDERED: ACETAMINOPHEN 500 MG TAB PO PRN (11:51)
[2024-10-17 12:27] LABS: Basophils # (auto) 0.01 K/uL (0.00-0.20); Basophils % (auto) 0.1 %; Immature Granulocytes # (auto) 0.07 K/uL (0.01-0.20); Immature Granulocytes % (auto) 0.9 %; Lymphocytes # (auto) 0.69 K/uL (1.20-3.40); Lymphocytes % (auto) 8.5 %; Mean Corpuscular Hemoglobin 30.6 pg (25.0-34.0); Mean Corpuscular Hgb Conc 32.1 g/dL (32.0-36.0); Mean Corpuscular Volume 95.2 fL (80.0-100.0); Mean Platelet Volume 9.9 fL (9.4-12.4); Monocytes # (auto) 0.47 K/uL (0.11-0.59); Monocytes % (auto) 5.8 %; Neutrophils # (auto) 6.88 K/uL (1.40-6.50); Neutrophils % (auto) 84.7 %; Platelet Count 264 K/uL (130-400); RDW Coefficient of Variation 13.5 % (11.5-14.5); RDW Standard Deviation 46.9 fL (36.4-46.3); Red Blood Count 2.94 M/uL (4.20-5.40); White Blood Count 8.12 K/ul (4.8-10.8)
[2024-10-17] MEDS: Patient's HEIGHT &/or WEIGHT Needed SCH (12:56)
[2024-10-17] MEDS: CHOLECALCIFEROL 125 MCG (5,000 UNITS) TAB PO SCH (13:25)
[2024-10-17] MEDS: POTASSIUM CHLORIDE CRTAB 20 MEQ TABCR PO SCH (13:25)
[2024-10-17 13:37] LABS: Creatinine Clr Calc Pharmacy 39.6 ml/min
[2024-10-17] MEDS: ENOXAPARIN INJ 40 MG/0.4 ML SYR SQ SCH (15:40)
--- NOTE | 2024-10-17 18:38 | Orthopedic Consultation ---
<Statement entered by Willard Lewis MD - 10/18/24 17:50> I reviewed and discussed the case with Kiki Green PA-C. I am in agreement with the note and plan. The xrays were reviewed. Agree with FFWBing and ROMAT. Postoperative care should be directed by the operative surgeon. Date of Service October 17, 2024 Assessment & Plan (1) Periprosthetic fracture around internal prosthetic right knee joint: Patient is postop day 3 from a right distal femur open reduction internal fixation by Dr. Ayah Mooney at [facility] on 10/14/24. She is now back for PT/OT evaluation as well as possible placement. Orthopedics was consulted. There were discharge instructions in the patient's physical chart stated the following: - DVT prophylaxis for 3 weeks postop. - Dressing care: First dressing change to be done on postop day 2. -Personal hygiene: No submerging underwater for 6 weeks postop but can shower after 1 week postop. - Weightbearing would be right lower extremity flatfoot weightbearing. This is when the patient can rest her foot on the ground but not shift any weight onto it. It is for balance only. Would recommend having physical therapy go over this with the patient in detail. -No specific restrictions with range of motion. She may be range of motion as tolerated in the right knee, however should work on knee extension. Would recommend that the patient follows up with her primary surgeon for this specific surgery when she is discharged from the hospital, however the patient has made known that she does not want to follow-up in [place]. She would like to follow-up with Dr. Berman. Would appreciate hospitalist/case management assistance with coordinating this upon the patient's discharge. No other interventions needed from orthopedic at this time. Please reach out any questions. History of Present Illness Reason for Consultation: s/p right knee periprosthetic fracture ORIF Requesting Physician: . Attending Physician: Donny Murphy MD Thu is an 84-year-old female who recently underwent an ORIF of her right knee/lower extremity due to a right knee periprosthetic fracture. She reported to the emergency department on 10/13/2024 due to a fall that she had coming out of her bathroom. Dr. Mathis did see her that day and recommended transfer to a traumatologist for surgical intervention due to the nature of the periprosthetic fracture. She was then transferred to [facility] where she had her surgery by Dr. Ayah Mooney on 10/14/24. She was then transferred back to [facility] for rehab placement. Patient states that she is doing well. Her pain is under control. She denies any fever, chills or constitutional symptoms. She is in a knee immobilizer. She states that at [facility], they told her that she was allowed to be weightbearing as tole rated with the knee immobilizer in place. She states that she has been ambulating on the right lower extremity since she has been back at [facility]. Does state that she had previous surgeries in the lower extremities by Dr. Berman. She would like to follow-up with him as an outpatient after she is discharged. No other questions or concerns today. Allergies Allergy/AdvReac Type Severity Reaction Status Date / Time influenza virus vaccine, Allergy Severe Gillean Verified 10/11/24 10:26 specific [place] Syndrome Sulfa (Sulfonamide Allergy Unknown Unknown Verified 10/11/24 10:26 Antibiotics) cephalexin AdvReac Mild Nausea Verified 10/11/24 10:26 Home Medications Medication Instructions Recorded Confirmed Type ferrous sulfate 325 mg (65 mg 325 mg PO 3XWK 07/17/18 10/17/24 History iron) tablet (iron) raloxifene 60 mg tablet 60 mg PO QAM 01/20/20 10/17/24 History cyanocobalamin (vitamin B-12) 500 500 mcg PO QAM 12/20/20 10/17/24 History mcg tablet (Vitamin B-12) cranberry extract 500 mg capsule 0 mg PO QAM 05/08/21 10/17/24 History (Cranberry Concentrate) potassium chloride 10 mEq 20 meq PO TID 04/09/22 10/17/24 History tablet,extended release acetaminophen 500 mg tablet 1,000 mg PO Q8 PRN Pain 02/05/24 10/17/24 History cholecalciferol (vitamin D3) 125 125 mcg PO WK 09/27/24 10/17/24 History mcg (5,000 unit) tablet (Vitamin D3) diphenhydramine 25 2 tab PO HS 09/27/24 10/17/24 History mg-acetaminophen 500 mg tablet (Tylenol PM Extra Strength) tamsulosin 0.4 mg capsule 0.4 mg PO HS #30 caps 10/04/24 10/17/24 Rx Past Med/Surg History Problem List (Updated 10/17/24 @ 00:06 by Tr Hudson) Dry heaves Periprosthetic fracture around internal prosthetic right knee joint Fracture of distal end of femur (Acute) Encounter for preoperative assessment (Acute) Medical History Anemia Chronic History of colitis History of right breast cancer (2000) s/p radiation History of seizure Single episode s/p benign brain tumor excision (1998) No issues since 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 Hx of Guillain-[place] syndrome (1998) After flu shot (1998) Mild residual LE neuropathy Hydronephrosis concurrent with and due to calculi of kidney and ureter Kidney stones Neuropathy involving both lower extremities Osteoarthritis Surgical History History of appendectomy History of brain surgery (1998) 1998; benign tumor excision History of colonoscopy History of hip surgery right and left due to falling History of tooth extraction History of total knee replacement R/L (2020) Hx of hysterectomy Hx of lithotripsy (01/18/21) Hx of lumpectomy Right breast- had xrt S/P cystoscopy with ureteral stent placement Multiple Family History Mother Macular degeneration Father Kidney stone Diabetes Social History Smoking Status: Never smoker Tobacco Type: Declines Second Hand Exposure: No; Do You Dip or Chew Tobacco: No; Hx Alcohol Use: No Hx Substance Use: No Preferred Language: Maldivian Communication Ability: Effective Visual Impairment: No Limitations Commutator Repairer Required: No Beliefs That Will Affect Care: None marital status: / Current Living Situation: Alone Current Living Situation Comment: son Other Information That Helps Us Care for You: No Feels Safe at Home: Yes Safety Concerns: Feels Safe At This Time Assistive Devices: Denture - Upper, Denture - Lower, Glasses and Hearing Aid - Bilateral Review of Systems All systems reviewed & are unremarkable except as noted in HPI & below. Physical Exam General: Alert and oriented. No acute distress. Right lower extremity: Marcello clark is resting in a knee immobilizer. I did open the knee immobilizer for a dressing check. There is some saturation on the dressings, however it is quite minimal. She has bordered gauze dressings in place. No erythema noted about the lower extremity. I did close a knee immobilizer back up. Sensation intact. Distal pulses palpated. Cap refill is 3 seconds. Constitutional WD/WN, vitals as above Musculoskeletal See above Psychiatric A+Ox3, euthymic affect Results & Data Results & Data Laboratory Results . Diagnostic Findings . PG Care Time/CCT Total # of Minutes Spent Total Time Spent with Patient: Total time spent is greater than 50% in coordination of care (as documented) at patient's floor/unit and/or counseling patient: Coding Level of Care Code 12411 IN/OBS CONSULT LVL 3,45M Diagnoses Periprosthetic fracture around internal prosthetic right knee joint M97.11XA
[2024-10-17] MEDS: ACETAMINOPHEN 500 MG TAB PO SCH (19:52)
[2024-10-17] MEDS: diphenhydrAMINE Capsule 25 MG CAP PO SCH (19:55)
[2024-10-17] MEDS: TAMSULOSIN HCL 0.4 MG CAP PO SCH (19:56)
[2024-10-18 08:14] LABS: Albumin Level 2.5 gm/dl (3.4-5.0); BUN Creatinine Ratio 12.5 (10-20); Bilirubin,Total 0.5 mg/dl (0.2-1.0); Calcium 7.6 mg/dl (8.6-10.3); Creatinine Clr Calc Pharmacy 40.1 ml/min; Globulin 2.5 gm/dl (2.5-4.0); Magnesium 1.7 mg/dl (1.7-2.4); Phosphorus 2.3 mg/dl (2.5-4.9); Potassium 3.3 mmol/L (3.5-5.1)
[2024-10-18] MEDS: FERROUS SULFATE 325 MG TAB PO SCH (08:26)
[2024-10-18] MEDS: RALOXIFENE HCL 60 MG TAB PO SCH (08:57)
[2024-10-18] MEDS: CYANOCOBALAMIN (B-12) 500 MCG TABLET PO SCH (08:57)
--- NOTE | 2024-10-18 11:04 | XRay Report ---
XR femur RT 2V routine CLINICAL HISTORY: post op COMPARISON: Right hip and right knee radiographs October 13, 2024. FINDINGS: Bilateral ureteral stents are partially imaged. There is an old, healed intertrochanteric fracture of the right femur status post internal fixation. Right knee arthroplasty is noted. Interval plate and screw fixation of the distal right femoral fracture is noted. There are skin ubaldo. Frac ture alignment has significantly improved. There are no unexpected radiopaque foreign bodies. IMPRESSION: Postoperative images demonstrating interval open reduction and internal fixation of the d istal right femoral periprosthetic fracture. ACT 112: Negative or not required by law. Electronically signed by: Redd Salcido M.D. 10/18/2024 11:03 AM
--- NOTE | 2024-10-18 15:00 | Hospitalist Progress Note ---
Date of Service October 18, 2024 Assessment & Plan (1) Periprosthetic fracture around internal prosthetic right knee joint: Plan: Periprosthetic fracture around internal prosthetic right knee joint following a fall on 10/13/2024 Status post right distal femur open reduction and internal fixation by Dr. Ayah Mooney at [facility] due to complex nature of the fracture. Clinically stable with knee brace and nonweightbearing status of the right knee right now Will involve our orthopedic surgeon for continued care PT OT evaluation and possible placement Per ortho - Patient is postop day 3 from a right distal femur open reduction internal fixation by Dr. Ayah Mooney at [facility] on 10/14/24. She is now back for PT/OT evaluation as well as possible placement. Orthopedics was consulted. There were discharge instructions in the patient's physical chart stated the following: - DVT prophylaxis for 3 weeks postop. - Dressing care: First dressing change to be done on postop day 2. -Personal hygiene: No submerging underwater for 6 weeks postop but can shower after 1 week postop. - Weightbearing would be right lower extremity flatfoot weightbearing. This is when the patient can rest her foot on the ground but not shift any weight onto it. It is for balance only. Would recommend having physical therapy go over this with the patient in detail. -No specific restrictions with range of motion. She may be range of motion as tolerated in the right knee, however should work on knee extension. 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 (3) Hydronephrosis concurrent with and due to calculi of kidney and ureter: Plan: Recent history of Klebsiella UTI on of this month Received IV antibiotic with ceftriaxone Denies any urinary symptoms (4) History of right breast cancer: Plan: No acute issue (5) Hx of Guillain-[place] syndrome: Plan: No acute issue (6) Hx of benign neoplasm of brain: Plan: Does not have any symptoms Plan DVT prophylaxis CODE STATUS Full Admission and Anticipated Discharge Date Admission Date: October 17, 2024 Subjective Pt seen in follow up S/p femur fx repair at [facility] Currently laying in bed in NAD Overall she says she is feeling well, no significant hip pain Denies any fever, chills, chest pain or shortness of breath No abd. pain n/v Review of Systems Review of Systems: All systems reviewed & are unremarkable except as noted in Subjective Physical Exam Physical Exam: Physical Exam: Lying in bed with out any acute dist ress Constitutional: WD/WN elderly F in NAD Eyes: EOMI, conjunctivae normal, anicteric sclerae ENMT: external ear and n ose normal, oropha rynx normal Neck: supple Respiratory: no respiratory dis tress Auscultatio n: lungs clear to auscultation bilat erally Cardiovascular: RRR , no murmur Gastrointestinal ( Abdomen): normal bowel sound s; abdomen not dis tended , abdomen s oft; abdomen nonte nder Musculoskeletal: Right knee and le g in your long bra ce. No sensory im pairment in bilate ral legs and no mo tor disability Neurologic: awake, alert, orie nted, answers appr opriately, speech fluent, no facial asymmetry, moves a ll extremities (Ri ght knee in a brac e and non mobile s tatus) Results & Data Results & Data Vital Signs (Past 12 Hours) Vital Signs Temp Pulse Resp BP Pulse Ox O2 Del Method 10/18/24 07:12 37.1 C 90 16 144/85 H 95 Room Air Laboratory Results 10/18/24 Range/Units 07:17 Sodium 148 H (136-145) mmol/L Potassium 3.3 L (3.5-5.1) mmol/L Chloride 113 H (98-107) mmol/L Carbon Dioxide 29 (21-32) mmol/L Anion Gap 6 (3-11) BUN 11 (6-23) mg/dl Creatinine 0.88 (0.6-1.2) mg/dl Est Cr Clr Drug Dosing 40.1 ml/min eGFR 65.17 BUN/Creatinine Ratio 12.5 (10-20) Glucose 109 H (70-99(Fasting)) mg/dl Calcium 7.6 L (8.6-10.3) mg/dl Phosphorus 2.3 L (2.5-4.9) mg/dl Magnesium 1.7 (1.7-2.4) mg/dl Total Bilirubin 0.5 (0.2-1.0) mg/dl AST 13 (13-39) U/L ALT 7 (7-52) U/L Alkaline Phosphatase 61 (34-104) U/L Total Protein 5.0 L (6.0-8.3) gm/dl Albumin 2.5 L (3.4-5.0) gm/dl Globulin 2.5 (2.5-4.0) gm/dl Albumin/Globulin Ratio 1.0 (0.9-2) Medications Administered Current Inpatient Medications Acetaminophen (Acetaminophen 500 Mg Tab) 1,000 mg PO Q8 PRN PRN Reason: Pain Stop: 11/16/24 11:50 Acetaminophen (Acetaminophen 500 Mg Tab) 1,000 mg PO HS MEGAN Stop: 11/16/24 20:59 Last Admin: 10/17/24 19:52 Dose: Not Given Cyanocobalamin (Cyanocobalamin (B-12) 500 Mcg Tablet) 500 mcg PO QAM MEGAN Stop: 11/17/24 08:59 Last Admin: 10/18/24 08:57 Dose: 500 mcg Diphenhydramine HCl (Diphenhydramine Capsule 25 Mg Cap) 50 mg PO HS MEGAN Stop: 11/16/24 20:59 Last Admin: 10/17/24 19:55 Dose: 50 mg Enoxaparin Sodium (Enoxaparin Inj 40 Mg/0.4 Ml Syr) 40 mg SQ Q24H MEGAN Stop: 11/16/24 13:59 Last Admin: 10/18/24 14:50 Dose: 40 mg Ferrous Sulfate (Ferrous Sulfate 325 Mg Tab) 325 mg PO MoWeFr@0900 MEGAN Stop: 11/17/24 08:59 Last Admin: 10/18/24 08:57 Dose: 325 mg Potassium Chloride (Potassium Chloride Crtab 20 Meq Tabcr) 20 meq PO TID MEGAN Stop: 11/16/24 13:59 Last Admin: 10/18/24 14:49 Dose: 20 meq Raloxifene HCl (Raloxifene Hcl 60 Mg Tab) 60 mg PO QAM MEGAN Stop: 11/17/24 08:59 Last Admin: 10/18/24 08:57 Dose: 60 mg Tamsulosin HCl (Tamsulosin Hcl 0.4 Mg Cap) 0.4 mg PO HS MEGAN Stop: 11/16/24 20:59 Last Admin: 10/17/24 19:56 Dose: 0.4 mg Vitamin D (Cholecalciferol 125 Mcg (5,000 Units) Tab) 125 mcg PO Mcconnell@1200 MEGAN Stop: 11/16/24 11:59 Last Admin: 10/17/24 13:25 Dose: 125 mcg
[2024-10-19] MEDS: KETOROLAC TROMETHAMINE 15 MG/ML VIAL IV ONE (00:10)
[2024-10-19 09:21] LABS: Hemoglobin 9.2 g/dl (12.0-16.0); Mean Corpuscular Hemoglobin 30.3 pg (25.0-34.0); Mean Corpuscular Hgb Conc 31.7 g/dL (32.0-36.0); Mean Corpuscular Volume 95.4 fL (80.0-100.0); Mean Platelet Volume 9.6 fL (9.4-12.4); Platelet Count 339 K/uL (130-400); RDW Coefficient of Variation 13.5 % (11.5-14.5); RDW Standard Deviation 45.8 fL (36.4-46.3); Red Blood Count 3.04 M/uL (4.20-5.40); White Blood Count 8.64 K/ul (4.8-10.8)
[2024-10-19 09:40] LABS: BUN Creatinine Ratio 13.1 (10-20); Calcium 7.7 mg/dl (8.6-10.3); Creatinine Clr Calc Pharmacy 35.6 ml/min; Magnesium 1.6 mg/dl (1.7-2.4); Phosphorus 2.3 mg/dl (2.5-4.9); Potassium 3.5 mmol/L (3.5-5.1)
--- NOTE | 2024-10-19 12:59 | Hospitalist Progress Note ---
Date of Service October 19, 2024 Assessment & Plan (1) Periprosthetic fracture around internal prosthetic right knee joint: Plan: Periprosthetic fracture around internal prosthetic right knee joint following a fall on 10/13/2024 Status post right distal femur open reduction and internal fixation by Dr. Ayah Mooney at [facility] due to complex nature of the fracture. Clinically stable with knee brace and nonweightbearing status of the right knee right now Will involve our orthopedic surgeon for continued care PT OT evaluation and possible placement Per ortho - Patient is postop day 3 from a right distal femur open reduction internal fixation by Dr. Ayah Mooney at [facility] on 10/14/24. She is now back for PT/OT evaluation as well as possible placement. Orthopedics was consulted. There were discharge instructions in the patient's physical chart stated the following: - DVT prophylaxis for 3 weeks postop. - Dressing care: First dressing change to be done on postop day 2. -Personal hygiene: No submerging underwater for 6 weeks postop but can shower after 1 week postop. - Weightbearing would be right lower extremity flatfoot weightbearing. This is when the patient can rest her foot on the ground but not shift any weight onto it. It is for balance only. Would recommend having physical therapy go over this with the patient in detail. -No specific restrictions with range of motion. She may be range of motion as tolerated in the right knee, however should work on knee extension. 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 (3) Hydronephrosis concurrent with and due to calculi of kidney and ureter: Plan: Mild hematuria noted - pt has chaves catheter (also s/p ureteral stents placement on 10/04/2024 w/ [facility] [place] -> will need follow up) Recent history of Klebsiella UTI on 18th of this month Received IV antibiotic with ceftriaxone Denies any urinary symptoms (4) History of right breast cancer: Plan: No acute issue (5) Hx of Guillain-[place] syndrome: Plan: No acute issue (6) Hx of benign neoplasm of brain: Plan: Does not have any symptoms Plan DVT prophylaxis, lovenox subq CODE STATUS Full Admission and Anticipated Discharge Date Admission Date: October 17, 2024 Subjective Pt seen in follow up S/p femur fx repair at [facility] [place] Currently laying in bed in NAD Overall she says she is feeling well, no significant hip pain Denies any fever, chills, chest pain or shortness of breath No abd. pain n/v Mild hematuria noted - pt has chaves catheter (also s/p ureteral stents placement on 10/04/2024) Pt's daughter present at the bedside and updated Review of Systems Review of Systems: All systems reviewed & are unremarkable except as noted in Subjective Physical Exam Physical Exam: Physical Exam: Lying in bed with out any acute dist ress Constitutional: WD/WN elderly F in NAD Eyes: EOMI, conjunctivae normal, anicteric sclerae ENMT: external ear and n ose normal, oropha rynx normal Neck: supple Respiratory: no respiratory dis tress Auscultatio n: lungs clear to auscultation bilat erally Cardiovascular: RRR , no murmur Gastrointestinal ( Abdomen): normal bowel sound s; abdomen not dis tended , abdomen s oft; abdomen nonte nder Musculoskeletal: Right knee and le g in your long bra ce. No sensory im pairment in bilate ral legs and no mo tor disability Neurologic: awake, alert, orie nted, answers appr opriately, speech fluent, no facial asymmetry, moves a ll extremities (Ri ght knee in a brac e and non mobile s tatus) Results & Data Results & Data Vital Signs (Past 12 Hours) Vital Signs Temp Pulse Resp BP Pulse Ox O2 Del Method 10/19/24 07:35 37.1 C 94 H 18 133/73 98 Room Air Laboratory Results 10/19/24 Range/Units 08:46 WBC 8.64 (4.8-10.8) K/ul RBC 3.04 L (4.20-5.40) M/uL Hgb 9.2 L (12.0-16.0) g/dl Hct 29.0 L (37.0-47.0) % MCV 95.4 (80.0-100.0) fL MCH 30.3 (25.0-34.0) pg MCHC 31.7 L (32.0-36.0) g/dL RDW Std Deviation 45.8 (36.4-46.3) fL RDW Coeff of Addie 13.5 (11.5-14.5) % Plt Count 339 (130-400) K/uL MPV 9.6 (9.4-12.4) fL Sodium 146 H (136-145) mmol/L Potassium 3.5 (3.5-5.1) mmol/L Chloride 110 H (98-107) mmol/L Carbon Dioxide 28 (21-32) mmol/L Anion Gap 8 (3-11) BUN 13 (6-23) mg/dl Creatinine 0.99 (0.6-1.2) mg/dl Est Cr Clr Drug Dosing 35.6 ml/min eGFR 56.58 BUN/Creatinine Ratio 13.1 (10-20) Glucose 140 H (70-99(Fasting)) mg/dl Calcium 7.7 L (8.6-10.3) mg/dl Phosphorus 2.3 L (2.5-4.9) mg/dl Magnesium 1.6 L (1.7-2.4) mg/dl Medications Administered Current Inpatient Medications Acetaminophen (Acetaminophen 500 Mg Tab) 1,000 mg PO Q8 PRN PRN Reason: Pain Stop: 11/16/24 11:50 Acetaminophen (Acetaminophen 500 Mg Tab) 1,000 mg PO MEGAN Stop: 11/16/24 20:59 Last Admin: 10/18/24 20:28 Dose: 1,000 mg Cyanocobalamin (Cyanocobalamin (B-12) 500 Mcg Tablet) 500 mcg PO QAM MEGAN Stop: 11/17/24 08:59 Last Admin: 10/19/24 09:15 Dose: 500 mcg Diphenhydramine HCl (Diphenhydramine Capsule 25 Mg Cap) 50 mg PO MEGAN Stop: 11/16/24 20:59 Last Admin: 10/18/24 20:29 Dose: 50 mg Enoxaparin Sodium (Enoxaparin Inj 40 Mg/0.4 Ml Syr) 40 mg SQ Q24H MEGAN Stop: 11/16/24 13:59 Last Admin: 10/18/24 14:50 Dose: 40 mg Ferrous Sulfate (Ferrous Sulfate 325 Mg Tab) 325 mg PO MoWeFr@0900 MEGAN Stop: 11/17/24 08:59 Last Admin: 10/18/24 08:26 Dose: 325 mg Potassium Chloride (Potassium Chloride Crtab 20 Meq Tabcr) 20 meq PO TID MEGAN Stop: 11/16/24 13:59 Last Admin: 10/19/24 09:14 Dose: 20 meq Raloxifene HCl (Raloxifene Hcl 60 Mg Tab) 60 mg PO QAM MEGAN Stop: 11/17/24 08:59 Last Admin: 10/19/24 09:15 Dose: 60 mg Tamsulosin HCl (Tamsulosin Hcl 0.4 Mg Cap) 0.4 mg PO HS MEGAN Stop: 11/16/24 20:59 Last Admin: 10/18/24 20:28 Dose: 0.4 mg Vitamin D (Cholecalciferol 125 Mcg (5,000 Units) Tab) 125 mcg PO Mcconnell@1200 [facility] Stop: 11/16/24 11:59 Last Admin: 10/17/24 13:25 Dose: 125 mcg
[2024-10-19] MEDS: ONDANSETRON INJ 2 MG/ML 2 ML VIAL IV STA (23:43)
[2024-10-20 08:10] LABS: Hematocrit (blood only) 27.4 % (37.0-47.0); Hemoglobin 8.9 g/dl (12.0-16.0); Mean Corpuscular Hemoglobin 30.9 pg (25.0-34.0); Mean Corpuscular Hgb Conc 32.5 g/dL (32.0-36.0); Mean Corpuscular Volume 95.1 fL (80.0-100.0); Mean Platelet Volume 9.5 fL (9.4-12.4); Platelet Count 309 K/uL (130-400); RDW Coefficient of Variation 13.7 % (11.5-14.5); RDW Standard Deviation 45.7 fL (36.4-46.3); Red Blood Count 2.88 M/uL (4.20-5.40); White Blood Count 7.72 K/ul (4.8-10.8)
[2024-10-20 08:22] LABS: BUN Creatinine Ratio 13.8 (10-20); Calcium 7.6 mg/dl (8.6-10.3); Creatinine Clr Calc Pharmacy 40.5 ml/min; Magnesium 1.7 mg/dl (1.7-2.4); Phosphorus 2.5 mg/dl (2.5-4.9); Potassium 3.8 mmol/L (3.5-5.1)
--- NOTE | 2024-10-20 12:39 | Hospitalist Progress Note ---
Date of Service October 20, 2024 Assessment & Plan (1) Periprosthetic fracture around internal prosthetic right knee joint: Plan: Periprosthetic fracture around internal prosthetic right knee joint following a fall on 10/13/2024 Status post right distal femur open reduction and internal fixation by Dr. Ayah Mooney at [facility] due to complex nature of the fracture. Clinically stable with knee brace and nonweightbearing status of the right knee right now Will involve our orthopedic surgeon for continued care PT OT evaluation and possible placement Per ortho - Patient is postop day 3 from a right distal femur open reduction internal fixation by Dr. Ayah Mooney at [facility] on 10/14/24. She is now back for PT/OT evaluation as well as possible placement. Orthopedics was consulted. There were discharge instructions in the patient's physical chart stated the following: - DVT prophylaxis for 3 weeks postop. - Dressing care: First dressing change to be done on postop day 2. -Personal hygiene: No submerging underwater for 6 weeks postop but can shower after 1 week postop. - Weightbearing would be right lower extremity flatfoot weightbearing. This is when the patient can rest her foot on the ground but not shift any weight onto it. It is for balance only. Would recommend having physical therapy go over this with the patient in detail. -No specific restrictions with range of motion. She may be range of motion as tolerated in the right knee, however should work on knee extension. 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 (3) Hydronephrosis concurrent with and due to calculi of kidney and ureter: Plan: Mild hematuria noted - pt has chaves catheter (also s/p ureteral stents placement on 10/04/2024 w/ [facility] urology -> will need follow up) Recent history of Klebsiella UTI on 18 of this month Received IV antibiotic with ceftriaxone Denies any urinary symptoms -- still having some hematuria Hg stable though -- no abdominal/bladder pain, fever/chills -- monitor closely repeat Urine culture today (4) History of right breast cancer: Plan: No acute issue (5) Hx of Guillain-[place] syndrome: Plan: No acute issue (6) Hx of benign neoplasm of brain: Plan: Does not have any symptoms Plan DVT prophylaxis, lovenox subq CODE STATUS Full Admission and Anticipated Discharge Date Admission Date: October 17, 2024 Subjective ff up for knee fracture, s/p surgery, etc seen resting in bed, comfortable states she feels fine overall denies knee pain no abdominal pain no chest pain, dyspnea, palpitations, dizziness no other new symptoms Review of Systems Review of Systems: all noted and negative except for above Physical Exam Physical Exam: General- oriented x 3, not in distress, speaks in sentences with no effort or accessory muscle use Eyes- anicteric Neck- no JVD Lungs- clear breath sounds bilaterally, no rales/wheezes Heart- normal rate, regular rhythm; no murmurs Abdomen- normal bowel sounds, nondistended, soft, nontender Extremities- R knee: immobilizer in place, trace pretibial edema, no calf tenderness Neuro- alert, oriented x 3; no gross focal neurologic deficits Skin- warm & dry Results & Data Results & Data Vital Signs (Past 12 Hours) Vital Signs Pulse Resp BP Pulse Ox O2 Del Method 10/20/24 08:16 86 16 126/62 100 Room Air all noted and reviewed including below
--- NOTE | 2024-10-21 16:02 | Hospitalist Progress Note ---
Date of Service October 21, 2024 Assessment & Plan (1) Periprosthetic fracture around internal prosthetic right knee joint: Plan: Periprosthetic fracture around internal prosthetic right knee joint following a fall on 10/13/2024 Status post right distal femur open reduction and internal fixation by Dr. Ayah Mooney at [facility] due to complex nature of the fracture. Clinically stable with knee brace and nonweightbearing status of the right knee right now Will involve our orthopedic surgeon for continued care PT OT evaluation and possible placement Per ortho - Patient is postop day 3 from a right distal femur open reduction internal fixation by Dr. Ayah Mooney at [facility] on 10/14/24. She is now back for PT/OT evaluation as well as possible placement. Orthopedics was consulted. There were discharge instructions in the patient's physical chart stated the following: - DVT prophylaxis for 3 weeks postop. - Dressing care: First dressing change to be done on postop day 2. -Personal hygiene: No submerging underwater for 6 weeks postop but can shower after 1 week postop. - Weightbearing would be right lower extremity flatfoot weightbearing. This is when the patient can rest her foot on the ground but not shift any weight onto it. It is for balance only. Would recommend having physical therapy go over this with the patient in detail. -No specific restrictions with range of motion. She may be range of motion as tolerated in the right knee, however should work on knee extension. 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 (3) Hydronephrosis concurrent with and due to calculi of kidney and ureter: Plan: Mild hematuria noted - pt has chaves catheter (also s/p ureteral stents placement on 10/04/2024 w/ [facility] urology -> will need follow up) Recent history of Klebsiella UTI on 18 of this month Received IV antibiotic with ceftriaxone Denies any urinary symptoms -- still having some hematuria Hg stable though -- no abdominal/bladder pain, fever/chills -- monitor closely repeat Urine culture: pending (4) History of right breast cancer: Plan: No acute issue (5) Hx of Guillain-[place] syndrome: Plan: No acute issue (6) Hx of benign neoplasm of brain: Plan: Does not have any symptoms Plan DVT prophylaxis, lovenox subq CODE STATUS Full Admission and Anticipated Discharge Date Admission Date: October 17, 2024 Subjective ff up s/p R knee surgery, etc seen resting in bed, watching TV, comfortable states she feels fine overall no knee pain no chest pain, dyspnea, palpitations, dizziness no other symptoms Review of Systems Review of Systems: all noted and negative except for above Physical Exam Physical Exam: General- oriented x 3, not in distress, speaks in sentences with no effort or accessory muscle use Eyes- anicteric Neck- no JVD Lungs- clear breath sounds bilaterally, no crackles or wheezing Heart- normal rate, regular rhythm; no murmurs Abdomen- normal bowel sounds, nondistended, soft, nontender Extremities- R knee: immobilizer in place no pretibial edema, no calf tenderness Neuro- alert, oriented x 3; no gross focal neurologic deficits Skin- warm & dry Results & Data Results & Data Vital Signs (Past 12 Hours) Vital Signs Temp Pulse Resp BP BP Pulse Ox O2 Del Method 10/21/24 14:27 36.5 C 80 16 96/55 L 96 Room Air 10/21/24 07:51 36.7 C 74 16 107/67 96 Room Air all noted and reviewed including below
--- NOTE | 2024-10-22 16:42 | Hospitalist Progress Note ---
Date of Service October 22, 2024 delayed entry date of service noted above Assessment & Plan (1) Periprosthetic fracture around internal prosthetic right knee joint: Plan: Periprosthetic fracture around internal prosthetic right knee joint following a fall on 10/13/2024 Status post right distal femur open reduction and internal fixation by Dr. Ayah Mooney at [facility] due to complex nature of the fracture. Clinically stable with knee brace and nonweightbearing status of the right knee right now Will involve our orthopedic surgeon for continued care PT OT evaluation and possible placement Per ortho - Patient is postop day 3 from a right distal femur open reduction internal fixation by Dr. Ayah Mooney at [facility] on 10/14/24. She is now back for PT/OT evaluation as well as possible placement. Orthopedics was consulted. There were discharge instructions in the patient's physical chart stated the following: - DVT prophylaxis for 3 weeks postop. - Dressing care: First dressing change to be done on postop day 2. -Personal hygiene: No submerging underwater for 6 weeks postop but can shower after 1 week postop. - Weightbearing would be right lower extremity flatfoot weightbearing. This is when the patient can rest her foot on the ground but not shift any weight onto it. It is for balance only. Would recommend having physical therapy go over this with the patient in detail. -No specific restrictions with range of motion. She may be range of motion as tolerated in the right knee, however should work on knee extension. 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 (3) Hydronephrosis concurrent with and due to calculi of kidney and ureter: Plan: Mild hematuria noted - pt has chaves catheter (also s/p ureteral stents placement on 10/04/2024 w/ [facility] urology -> will need follow up) Recent history of Klebsiella UTI on 18 of this month Received IV antibiotic with ceftriaxone Denies any urinary symptoms -- still having some hematuria Hg stable though -- no abdominal/bladder pain, fever/chills -- monitor closely repeat Urine culture: pending (4) History of right breast cancer: Plan: No acute issue (5) Hx of Guillain-[place] syndrome: Plan: No acute issue (6) Hx of benign neoplasm of brain: Plan: Does not have any symptoms Plan DVT prophylaxis, lovenox subq CODE STATUS Full Admission and Anticipated Discharge Date Admission Date: October 17, 2024 Subjective seen resting in bed, comfortable not in distress feels fine overall R knee feels ok no other symptoms Review of Systems Review of Systems: all noted and negative except for above Physical Exam Physical Exam: General- oriented x 3, not in distress, speaks in sentences with no effort or accessory muscle use Eyes- anicteric Neck- no JVD Lungs- clear breath sounds bilaterally, no rales/wheezes Heart- normal rate, regular rhythm; no murmurs Abdomen- normal bowel sounds, nondistended, soft, nontender Extremities- no pretibial edema, no calf tenderness R knee: immobilizer in place Neuro- alert, oriented x 3; no gross focal neurologic deficits Skin- warm & dry Results & Data Results & Data Vital Signs (Past 12 Hours) Vital Signs Temp Pulse Pulse Resp BP Pulse Ox O2 Del Method 10/22/24 15:07 36.7 C 99 H 16 103/54 L 90 Room Air 10/22/24 07:16 36.6 C 67 16 104/62 97 Room Air 10/22/24 07:00 Room Air
[2024-10-22] MEDS: LOPERAMIDE HCL 2 MG CAP PO PRN (17:01)
--- NOTE | 2024-10-23 20:08 | Hospitalist Progress Note ---
Date of Service October 23, 2024 Assessment & Plan (1) Periprosthetic fracture around internal prosthetic right knee joint: Plan: Periprosthetic fracture around internal prosthetic right knee joint following a fall on 10/13/2024 Status post right distal femur open reduction and internal fixation by Dr. Ayah Mooney at [facility] due to complex nature of the fracture. Clinically stable with knee brace and nonweightbearing status of the right knee right now Will involve our orthopedic surgeon for continued care PT OT evaluation and possible placement Per ortho - Patient is postop day 3 from a right distal femur open reduction internal fixation by Dr. Ayah Mooney at [facility] on 10/14/24. She is now back for PT/OT evaluation as well as possible placement. Orthopedics was consulted. There were discharge instructions in the patient's physical chart stated the following: - DVT prophylaxis for 3 weeks postop. - Dressing care: First dressing change to be done on postop day 2. -Personal hygiene: No submerging underwater for 6 weeks postop but can shower after 1 week postop. - Weightbearing would be right lower extremity flatfoot weightbearing. This is when the patient can rest her foot on the ground but not shift any weight onto it. It is for balance only. Would recommend having physical therapy go over this with the patient in detail. -No specific restrictions with range of motion. She may be range of motion as tolerated in the right knee, however should work on knee extension. 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 (3) Hydronephrosis concurrent with and due to calculi of kidney and ureter: Plan: Mild hematuria noted - pt has chaves catheter (also s/p ureteral stents placement on 10/04/2024 w/ [facility] -> will need follow up) Recent history of Klebsiella UTI on of this month Received IV antibiotic with ceftriaxone Denies any urinary symptoms -- still having some hematuria Hg stable though -- no abdominal/bladder pain, fever/chills -- monitor closely repeat Urine culture: negative (4) History of right breast cancer: Plan: No acute issue (5) Hx of Guillain-[place] syndrome: Plan: No acute issue (6) Hx of benign neoplasm of brain: Plan: Does not have any symptoms Plan DVT prophylaxis, lovenox subq CODE STATUS Full Admission and Anticipated Discharge Date Admission Date: October 17, 2024 Subjective ff up for r knee surgery, etc seen resting in bed, comfortable denies R knee pain has some low back pain chronic, intermittent no other new symptoms feels fine overall Review of Systems Review of Systems: all noted and reviewed including below Physical Exam Physical Exam: General- oriented x 3, not in distress, speaks in sentences with no effort or accessory muscle use Eyes- anicteric Neck- no JVD Lungs- clear breath sounds bilaterally,no crackles Heart- normal rate, regular rhythm; no murmurs Abdomen- normal bowel sounds, nondistended, soft, nontender Extremities- no pretibial edema, no calf tenderness Neuro- alert, oriented x 3; no gross focal neurologic deficits Skin- warm & dry Results & Data Results & Data Vital Signs (Past 12 Hours) Vital Signs Temp Pulse Resp BP Pulse Ox O2 Del Method 10/23/24 14:47 36.7 C 76 16 142/65 H 96 Room Air all noted and reviewed including below
[2024-10-24 13:54] VITALS: RESP 18; O2SAT 97
--- NOTE | 2024-10-24 17:01 | Hospitalist Progress Note ---
Date of Service October 24, 2024 delayed entry date of service noted above Assessment & Plan (1) Periprosthetic fracture around internal prosthetic right knee joint: Plan: Periprosthetic fracture around internal prosthetic right knee joint following a fall on 10/13/2024 Status post right distal femur open reduction and internal fixation by Dr. Ayah Mooney at [facility] due to complex nature of the fracture. Clinically stable with knee brace and nonweightbearing status of the right knee right now Will involve our orthopedic surgeon for continued care PT OT evaluation and possible placement Per ortho - Patient is postop day 3 from a right distal femur open reduction internal fixation by Dr. Ayah Mooney at [facility] on 10/14/24. She is now back for PT/OT evaluation as well as possible placement. Orthopedics was consulted. There were discharge instructions in the patient's physical chart stated the following: - DVT prophylaxis for 3 weeks postop. - Dressing care: First dressing change to be done on postop day 2. -Personal hygiene: No submerging underwater for 6 weeks postop but can shower after 1 week postop. - Weightbearing would be right lower extremity flatfoot weightbearing. This is when the patient can rest her foot on the ground but not shift any weight onto it. It is for balance only. Would recommend having physical therapy go over this with the patient in detail. -No specific restrictions with range of motion. She may be range of motion as tolerated in the right knee, however should work on knee extension. 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 (3) Hydronephrosis concurrent with and due to calculi of kidney and ureter: Plan: Mild hematuria noted - pt has chaves catheter (also s/p ureteral stents placement on 10/04/2024 w/ [facility] -> will need follow up) Recent history of Klebsiella UTI on 18 of this month Received IV antibiotic with ceftriaxone Denies any urinary symptoms -- still having some hematuria Hg stable though -- no abdominal/bladder pain, fever/chills -- monitor closely repeat Urine culture: negative (4) History of right breast cancer: Plan: No acute issue (5) Hx of Guillain-[place] syndrome: Plan: No acute issue (6) Hx of benign neoplasm of brain: Plan: Does not have any symptoms Plan DVT prophylaxis, lovenox subq CODE STATUS Full Admission and Anticipated Discharge Date Admission Date: October 17, 2024 Subjective Follow-up for right knee surgery, etc. Seen resting in bed, comfortable, not in distress States she feels fine overall Has some Low back pain, better with repositioning No other new symptoms Review of Systems Review of Systems: all noted and negative except for above Physical Exam Physical Exam: General- oriented x 3, not in distress, speaks in sentences with no effort or accessory muscle use Eyes- anicteric Neck- no JVD Lungs- clear breath sounds bilaterally, no rales/wheezes Heart- normal rate, regular rhythm; no murmurs Abdomen- normal bowel sounds, nondistended, soft, nontender Extremities- no pretibial edema, no calf tenderness Right knee: Immobilizer in place Neuro- alert, oriented x 3; no gross focal neurologic deficits Skin- warm & dry Results & Data Results & Data Vital Signs (Past 12 Hours) Vital Signs Temp Pulse Pulse Resp BP BP Pulse Ox 10/24/24 13:52 36.7 C 84 18 91/53 L 97 10/24/24 07:22 36.8 C 85 16 97/58 L 94 O2 Del Method 10/24/24 13:52 Room Air 10/24/24 07:22 Room Air all noted and reviewed including below
[2024-10-25 07:48] VITALS: BP 93/58; PULSE 71; TEMP 98.1
--- NOTE | 2024-10-25 15:18 | History & Physical Report ---
Date of Service October 25, 2024 Assessment & Plan (1) Periprosthetic fracture around internal prosthetic right knee joint: Plan: Periprosthetic fracture around internal prosthetic right knee joint following a fall on 10/13/2024 Status post right distal femur open reduction and internal fixation by Dr. Ayah Mooney at [facility] due to complex nature of the fracture. Clinically stable with knee brace and nonweightbearing status of the right knee right now Will involve our orthopedic surgeon for continued care PT OT evaluation and possible placement Per ortho - Patient is postop day 3 from a right distal femur open reduction internal fixation by Dr. Ayah Mooney at [facility] on 10/14/24. She is now back for PT/OT evaluation as well as possible placement. Orthopedics was consulted. There were discharge instructions in the patient's physical chart stated the following: - DVT prophylaxis for 3 weeks postop. - Dressing care: First dressing change to be done on postop day 2. -Personal hygiene: No submerging underwater for 6 weeks postop but can shower after 1 week postop. - Weightbearing would be right lower extremity flatfoot weightbearing. This is when the patient can rest her foot on the ground but not shift any weight onto it. It is for balance only. Would recommend having physical therapy go over this with the patient in detail. -No specific restrictions with range of motion. She may be range of motion as tolerated in the right knee, however should work on knee extension. 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 -> will need follow up) Recent history of Klebsiella UTI on of this month Received IV antibiotic with ceftriaxone Denies any urinary symptoms -- still having some hematuria Hg stable though -- no abdominal/bladder pain, fever/chills -- monitor closely repeat Urine culture: negative (4) History of right breast cancer: Plan: No acute issue (5) Hx of Guillain-[place] syndrome: Plan: No acute issue (6) Hx of benign neoplasm of brain: Plan: Does not have any symptoms Plan DVT prophylaxis, lovenox subq CODE STATUS Full Admission and Anticipated Discharge Date Admission Date: October 17, 2024 History of Present Illness Primary Care Provider: Indu Ambrocio Allergies Allergy/AdvReac Type Severity Reaction Status Date / Time influenza virus vaccine, Allergy Severe G[place]an Verified 10/11/24 10:26 specific [place] Syndrome Sulfa (Sulfonamide Allergy Unknown Unknown Verified 10/11/24 10:26 Antibiotics) cephalexin AdvReac Mild Nausea Verified 10/11/24 10:26 Home Medications Medication Instructions Recorded Confirmed Type ferrous sulfate 325 mg (65 mg 325 mg PO 3XWK 07/17/18 10/17/24 History iron) tablet (iron) raloxifene 60 mg tablet 60 mg PO QAM 01/20/20 10/17/24 History cyanocobalamin (vitamin B-12) 500 500 mcg PO QAM 12/20/20 10/17/24 History mcg tablet (Vitamin B-12) cranberry extract 500 mg capsule 0 mg PO QAM 05/08/21 10/17/24 History (Cranberry Concentrate) potassium chloride 10 mEq 20 meq PO TID 04/09/22 10/17/24 History tablet,extended release acetaminophen 500 mg tablet 1,000 mg PO Q8 PRN Pain 02/05/24 10/17/24 History cholecalciferol (vitamin D3) 125 125 mcg PO WK 09/27/24 10/17/24 History mcg (5,000 unit) tablet (Vitamin D3) diphenhydramine 25 2 tab PO HS 09/27/24 10/17/24 History mg-acetaminophen 500 mg tablet (Tylenol PM Extra Strength) tamsulosin 0.4 mg capsule 0.4 mg PO HS #30 caps 10/04/24 10/17/24 Rx Past Med/Surg History Problem List (Updated 10/24/24 @ 00:06 by Tr Hudson) Dry heaves Periprosthetic fracture around internal prosthetic right knee joint Fracture of distal end of femur (Acute) Medical History Anemia Chronic History of colitis History of right breast cancer (2000) s/p radiation History of seizure Single episode s/p benign brain tumor excision (1998) No issues since 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 Hydronephrosis concurrent with and due to calculi of kidney and ureter Kidney stones Neuropathy involving both lower extremities Osteoarthritis Surgical History History of appendectomy History of brain surgery (1998) 1998; benign tumor excision History of colonoscopy History of hip surgery right and left due to falling History of tooth extraction History of total knee replacement R/L (2020) Hx of hysterectomy Hx of lithotripsy (01/18/21) Hx of lumpectomy Right breast- had xrt S/P cystoscopy with ureteral stent placement Multiple Family History Mother Macular degeneration Father Kidney stone Diabetes Social History Smoking Status: Never smoker Tobacco Type: Declines Second Hand Exposure: No; Do You Dip or Chew Tobacco: No; Hx Alcohol Use: No Hx Substance Use: No Preferred Language: [place] Communication Ability: Effective Visual Impairment: No Limitations Fr[employer] House Cook Required: No Beliefs That Will Affect Care: None marital status: / Current Living Situation: Alone Current Living Situation Comment: son Feels Safe at Home: Yes Assistive Devices: Denture - Upper, Denture - Lower, Glasses and Hearing Aid - Bilateral Results & Data Results & Data Vital Signs (Past 12 Hours) Vital Signs Temp Pulse Resp BP Pulse Ox O2 Del Method 10/25/24 07:47 36.7 C 71 18 93/58 L 97 Room Air Code Status & VTE Plan VTE Prophylaxis Plan VTE Prophylaxis will be ordered: Yes
--- NOTE | 2024-10-26 16:58 | Discharge Summary ---
Discharge Summary Date of Service October 26, 2024 delayed entry date of service 10/25/24 Principal Dx & Hospital Course #1 = Principal Diagnosis (1) Periprosthetic fracture around internal prosthetic right knee joint: (2) Neuropathy involving both lower extremities: (3) Hydronephrosis concurrent with and due to calculi of kidney and ureter: (4) History of right breast cancer: (5) Hx of Guillain-[place] syndrome: (6) Hx of benign neoplasm of brain: (1) Periprosthetic fracture around internal prosthetic right knee joint: Plan: Periprosthetic fracture around internal prosthetic right knee joint following a fall on 10/13/2024 Status post right distal femur open reduction and internal fixation by Dr. Ayah Mooney at [facility] due to complex nature of the fracture. Clinically stable with knee brace and nonweightbearing status of the right knee right now Per ortho - Patient is postop day 3 from a right distal femur open reduction internal fixation by Dr. Ayah Mooney at [facility] on 10/14/24. She is now back for PT/OT evaluation as well as possible placement. Orthopedics was consulted. There were discharge instructions in the patient's physical chart stated the following: - DVT prophylaxis for 3 weeks postop. - Dressing care: First dressing change to be done on postop day 2. -Personal hygiene: No submerging underwater for 6 weeks postop but can shower a fter 1 week postop. - Weightbearing would be right lower extremity flatfoot weightbearing. This is when the patient can rest her foot on the ground but not shift any weight onto it. It is for balance only. Would recommend having physical therapy go over this with the patient in detail. -No specific restrictions with range of motion. She may be range of motion as tolerated in the right knee, however should work on knee extension. 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 (3) Hydronephrosis concurrent with and due to calculi of kidney and ureter: Plan: Mild hematuria noted - pt has chaves catheter (also s/p ureteral stents placement on 10/04/2024 w/ [facility] -> will need follow up) Recent history of Klebsiella UTI on 18th of this month Received IV antibiotic with ceftriaxone Denies any urinary symptoms -- hematuria improving Hg stable though -- no abdominal/bladder pain, fever/chills -- monitor closely repeat Urine culture: negative (4) History of right breast cancer: Plan: No acute issue (5) Hx of Guillain-[place] syndrome: Plan: No acute issue (6) Hx of benign neoplasm of brain: Plan: Does not have any symptoms Plan DVT prophylaxis, lovenox subq x 3 weeks CODE STATUS Full Notes For Next Care Provider Medication Changes From Visit Lovenox 40mg SC daily x 3 weeks Admission HPI Per Admitting Provider She is an 84-year-old female with significant past medical history of right bob [facility] cancer status post surgery, and radiation, meningioma s/p surgery, history of seizure disorder not on any medication currently, history of Guillain-Sandra syndrome and also hydronephrosis and urolithiasis apparently has had a fall on 10/13/2024 when she tripped coming out of bathroom the night before and landed on her right knee without any head trauma. She was noted to have a periprosthetic fracture of the right knee joint and was evaluated by orthopedic surgeon in the emergency room and she was transferred to [facility] for continued care as the fracture was complex to be repaired in this hospital. She also had UTI with Pseudomonas and has been on treatment with ceftriaxone. She has had right distal femur open reduction internal fixation on of this month at [facility] by Dr. Ayah Mooney and following the procedure she remained stable subsequent days at [facility]. She was transferred to [facility] this morning for continuation of care and possible placement for rehab. Except weakness she denies any other significant symptoms this morning. Admission Exam Per Admitting Provider Physical Exam: Lying in bed without any acute distress Constitutional: + ill appearing and average body habitus Eyes: PERRL, conjunctivae normal, anicteric sclerae ENMT: external ear and nose normal, oropharynx normal Neck: trachea midline, no thyromegaly Respiratory: no respiratory distress Auscultation: lungs clear to auscultation bilaterally Cardiovascular: Rate/Rhythm: regular rate and regular rhythm; not tachycardic Heart Sounds: normal S1 and normal S2; no murmur Extremities: no edema Gastrointestinal (Abdomen): Inspection/Auscultation: normal bowel sounds; abdomen not distended Percussion/Palpation: abdomen soft; abdomen nontender Musculoskeletal: Right knee and leg in your long brace. No sensory impairment in bilateral legs and no motor disability Neurologic: normal touch/pain/proprioception and moves all extremities (Right knee in a brace and non mobile status) Lymphatic: no cervical or axillary lymphadenopathy Discharge Exam General- oriented x 3, not in distress, speaks in sentences with no effort or accessory muscle use Eyes- anicteric Neck- no JVD Lungs- clear breath sounds bilaterally, no rales/wheezes Heart- normal rate, regular rhythm; no murmurs Abdomen- normal bowel sounds, nondistended, soft, nontender Extremities- no pretibial edema, no calf tenderness Right knee: Immobilizer in place Neuro- alert, oriented x 3; no gross focal neurologic deficits Skin- warm & dry Updated Medication List Medication Instructions Recorded Confirmed Type ferrous sulfate 325 mg (65 mg 325 mg PO 3XWK 07/17/18 10/17/24 History iron) tablet (iron) raloxifene 60 mg tablet 60 mg PO QAM 01/20/20 10/17/24 History cyanocobalamin (vitamin B-12) 500 500 mcg PO QAM 12/20/20 10/17/24 History mcg tablet (Vitamin B-12) cranberry extract 500 mg capsule 0 mg PO QAM 05/08/21 10/17/24 History (Cranberry Concentrate) potassium chloride 10 mEq 20 meq PO TID 04/09/22 10/17/24 History tablet,extended release acetaminophen 500 mg tablet 1,000 mg PO Q8 PRN Pain 02/05/24 10/17/24 History cholecalciferol (vitamin D3) 125 125 mcg PO WK 09/27/24 10/17/24 History mcg (5,000 unit) tablet (Vitamin D3) diphenhydramine 25 2 tab PO HS 09/27/24 10/17/24 History mg-acetaminophen 500 mg tablet (Tylenol PM Extra Strength) tamsulosin 0.4 mg capsule 0.4 mg PO HS #30 caps 10/04/24 10/17/24 Rx Hospital Stay Data Consultations 10/17/24 11:57 Consult Orthopedic Surgery Routine Diagnostic Imagining Performed XR femur RT 2V routine CLINICAL HISTORY: post op COMPARISON: Right hip and right knee radiographs October 13, 2024. FINDINGS: Bilateral ureteral stents are partially imaged. There is an old, healed intertrochanteric fracture of the right femur status post internal fixation. Right knee arthroplasty is noted. Interval plate and screw fixation of the distal right femoral fracture is noted. There are skin ubaldo. Fracture alignment has significantly improved. There are no unexpected radiopaque foreign bodies. IMPRESSION: Postoperative images demonstrating interval open reduction and internal fixation of the distal right femoral periprosthetic fracture. ACT 112: Negative or not required by law. Pending Results Patient Have Any Pending Studies at Discharge: No Discharge Instructions Given to Patient (Per Discharging Provider) Follow up with primary care doctor and orthopedic surgeon. Follow recommendation from your surgeon. Per discharge instruction from [facility]: - DVT prophylaxis for 3 weeks postop. - Dressing care: First dressing change to be done on postop day 2. -Personal hygiene: No submerging underwater for 6 weeks postop but can shower after 1 week postop. - Weightbearing would be right lower extremity flatfoot weightbearing. This is when the patient can rest her foot on the ground but not shift any weight onto it. It is for balance only. Would recommend having physical therapy go over this with the patient in detail. -No specific restrictions with range of motion. She may be range of motion as tolerated in the right knee, however should work on knee extension. Total Time Total Time Spent Total Time Spent (In Minutes): 45 minutes
== END 2024-10-25 15:56 | DRG 560 ==
LOC: 3N 10-17 10:44 → SUATTDRO 10-17 10:56
DX: Z85.3 Personal history of malignant neoplasm of breast; Y92.89 Other specified places as the place of occurrence of the external cause; Z92.3 Personal history of irradiation; Z88.2 Allergy status to sulfonamides; Z98.890 Other specified postprocedural states; S72.401D Unspecified fracture of lower end of right femur, subsequent encounter for closed fracture with routine healing; G62.89 Other specified polyneuropathies; N13.2 Hydronephrosis with renal and ureteral calculous obstruction; M97.11XA Periprosthetic fracture around internal prosthetic right knee joint, initial encounter; Z88.1 Allergy status to other antibiotic agents; W19.XXXD Unspecified fall, subsequent encounter; G61.0 Guillain-Barre syndrome; Z88.7 Allergy status to serum and vaccine

== ENCOUNTER 2024-11-23 15:02 | Inpatient (IN) ==
--- NOTE | 2024-11-23 15:51 | XRay Report ---
XR chest 1V portable CLINICAL HISTORY: weakness TECHNIQUE: Single frontal radiograph of the chest was obtained. Comparison: Comparison is made to chest radiograph 10/13/2024 FINDINGS: No lines and tubes are seen. Cardiomegaly is noted. The aortic arch is calcified. There is a faint op acity in the right lower lung. No evidence of pleural effusion or pneumothorax. IMPRESSION: Faint right lower lung opacity may represent atelectasis, pneumonia, and/or aspiration. ACT 112: Negative or not required by law. Electronically signed by: Raman Major M.D. 11/23/2024 3:49 PM
--- NOTE | 2024-11-23 15:57 | Emergency Department Note ---
Impression & Plan Sepsis, Urinary tract infection, Ureteral stent present ED Provider Note NAME: CLAU SIMON AGE: 84 SEX: Female INFORMANT: Patient ED PROVIDER(S): Dre Castillo MD CHIEF COMPLAINT: Urinary symptoms PLAN: Disposition: Admitted Outpatient prescription management: none Referral: None MEDICAL DECISION MAKING: Patient presented due to urinary symptoms. She has history of UTI and indwelling ureteral stents. She underwent a workup. She does have a mild leukocytosis. She was also found to have MALINA. The patient had a normal serum lactate. She typically has low blood pressure but was running slightly lower than usual. She did respond to saline boluses, receiving over 30 mL/kg. She was reassessed and had improvement in blood pressure but then would drop again. Additional fluids were given. Patient was treated with broad-spectrum antibiotics including cefepime and vancomycin. CT scan reveals presence of ureteral stents but improvement in her hydronephrosis. There is some air within the right collecting system and bladder. I did consult with Dr. Fitzgerald of urology. We did discuss the findings and he recommended admission for IV antibiotics. He did note the patient may require stent exchange but would like a few days of IV antibiotics unless her condition worsens. Patient was also given IV Tylenol. She was reassessed and was relatively comfortable. Discussed admission. Consultation was placed the [facility] hospitalist service. Case was discussed and diagnostics were reviewed. Patient will be admitted under Dr. Sherman's service. After hospitalist evaluation the patient developed additional bouts of hypotension. Hospitalist did order Levophed and is consulting again with urology regarding her condition to discuss the UTI and indwelling stents. Hypotension improved. The heart rate was reported multiple times at 140 or better however the patient had a lower voltage QRS and the monitor was double counting as her heart rate was typically about 75-80. Care/management discussed with: bilingual manager, urology, hospitalist Level of care consideration(s): After review of the information above and other included data, I feel the patient requires escalation of care to admission Triage Nursing notes: reviewed and agree them. Vital Signs: reviewed and remarkable for hypotension Additional History obtained from: none Chronic Medical/Social Conditions affecting care: none Prior/ Outside/ External records reviewed: Prior urine cultures were reviewed. Patient has had multiple Klebsiella infections that were intermediate to quinolones as well as Macrobid. Differential Diagnosis: Sepsis, UTI, complication of indwelling stents, pneumonia, metabolic, electrolyte abnormalities, cardiac sources, toxicologic, neurologic, as well as other pathologies. Diagnostics, independently interpreted by me: ECG: Twelve-lead ECG reveals a normal sinus rhythm at [address] elevation or depression. No PVCs Cardiac Monitoring: Cardiac monitoring ordered by me: The patient was placed on continuous cardiac monitoring and observed. It revealed a normal sinus rhythm at 77 beats per minute without ectopy or evidence of dysrhythmia. Medical decision rules: none Imaging studies: CT scan as above. also there is right middle lobe consolidation noted. HPI: 84 year old Female arrives for evaluation of urinary symptoms. Patient notes history of UTI. She has bilateral indwelling ureteral stents secondary to kidney stones. She was recently on levofloxacin. She had increased weakness and was not feeling well. She notes poor appetite. She has had decreased urine output. EMS was summoned. Patient was noted to be hypotensive. She is mildly tachycardic. Currently she denies any pain although she has had intermittent flank pain from time to time. Patient was recently hospitalized and treated with IV Rocephin. Pt denies LOC, headache, fevers, chills, diaphoresis, visual changes, neck pain, chest pain, breathing difficulties, nausea, vomiting, current abdominal pain, current back pain, diarrhea, numbness, lymphadenopathy, rash, or other complaints.. PAST MEDICAL HISTORY: See Below, UTI, periprosthetic fracture of right knee PAST SURGICAL HISTORY: See Below, SOCIAL HISTORY: See Below, retired HOME MEDICATIONS: See Below ALLERGIES: See Below VITALS: See Below PHYSICAL EXAMINATION: GENERAL: Awake, alert, uncomfortable-appearing, in no distress HENT: Normocephalic, atraumatic. Oropharynx unremarkable. EYES: Normal conjunctiva. Sclera non-icteric. NECK: Inspection normal. Non-tender. Supple. No nuchal rigidity. FROM. No masses. RESPIRATORY: Clear to auscultation. No wheezes. No rales. Normal respiratory effort. CARDIAC: Borderline tachycardic rate. Normal rhythm. No murmurs. No rubs. Extremities warm and well perfused. Pulses equal. No JVD. GI: Soft, non-distended. No tenderness to palpation. No rebound or guarding. No masses. RECTAL: Deferred. MUSCULOSKELETAL: Atraumatic. The back is kyphotic on inspection without obvious abnormality. There is minimal bilateral CVA tenderness to palpation. No joint edema. LOWER EXTREMITIES: Calves are equal size bilaterally and non-tender. No edema. No discoloration. Minimal ecchymosis noted at surgical sites on right knee. No signs of cellulitis or infection. NEURO: Normal sensorium. No sensory or motor deficits noted. SKIN: No rash or jaundice noted. PROCEDURES: none CRITICAL CARE: I have personally spent 40 minutes of critical care time in the direct management of this patient. This includes bedside care, interpretation of diagnostic studies, and testing, discussion with consultants, patient, and other required patient management activities. These minutes are in excess of all separately billable procedures. 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 Hydronephrosis concurrent with and due to calculi of kidney and ureter Kidney stones Neuropathy involving both lower extremities Osteoarthritis Surgical History History of appendectomy History of brain surgery (1998) 1998; benign tumor excision History of colonoscopy History of hip surgery right and left due to falling History of tooth extraction History of total knee replacement R/L (2020) Hx of hysterectomy Hx of lithotripsy (01/18/21) Hx of lumpectomy Right breast- had xrt S/P cystoscopy with ureteral stent placement Multiple Family History Mother Macular degeneration Father Kidney stone Diabetes Social History Smoking Status: Never smoker Tobacco Type: Declines Second Hand Exposure: No; Do You Dip or Chew Tobacco: No; Hx Alcohol Use: No Hx Substance Use: No Preferred Language: Upper Sorbian Communication Ability: Effective Visual Impairment: No 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 Beliefs That Will Affect Care: None marital status: / Current Living Situation: Alone Current Living Situation Comment: son Feels Safe at Home: Yes Assistive Devices: Denture - Upper, Denture - Lower, Glasses and Hearing Aid - Bilateral Allergies Allergies Allergy/AdvReac Type Severity Reaction Status Date / Time influenza virus vaccine, Allergy Severe Gillean Verified 10/11/24 10:26 specific Jones Syndrome Sulfa (Sulfonamide Allergy Unknown Unknown Verified 10/11/24 10:26 Antibiotics) cephalexin AdvReac Mild Nausea Verified 10/11/24 10:26 Home Meds Home Medications Medication Instructions Recorded Confirmed ferrous sulfate 325 mg (65 mg 325 mg PO 3XWK 07/17/18 11/23/24 iron) tablet (iron) raloxifene 60 mg tablet 60 mg PO QAM 01/20/20 11/23/24 cyanocobalamin (vitamin B-12) 500 500 mcg PO QAM 12/20/20 11/23/24 mcg tablet (Vitamin B-12) cranberry extract 500 mg capsule 0 mg PO QAM 05/08/21 11/23/24 (Cranberry Concentrate) potassium chloride 10 mEq 20 meq PO TID 04/09/22 11/23/24 tablet,extended release acetaminophen 500 mg tablet 1,000 mg PO Q8 PRN Pain 02/05/24 11/23/24 cholecalciferol (vitamin D3) 125 125 mcg PO WK 09/27/24 11/23/24 mcg (5,000 unit) tablet (Vitamin D3) diphenhydramine 25 2 tab PO HS 09/27/24 11/23/24 mg-acetaminophen 500 mg tablet (Tylenol PM Extra Strength) Results & Data (ED) Vital Signs Vital Signs - 24 hr 11/23/24 15:19 11/23/24 15:26 11/23/24 16:06 Temperature 36.9 C Temperature Source Oral Pulse Rate 103 H 101 H Pulse Rate from SpO2 Sensor Pulse Rhythm Regular Pulse Strength Normal Respiratory Rate 20 Respiratory Effort / Characteristics Non-Labored Respiratory Depth Normal Respiratory Pattern Regular Blood Pressure 84/48 L Blood Pressure Mean 60 Blood Pressure Position Lying Pulse Oximetry 98 96 Oxygen Delivery Method Room Air Room Air Oxygen Flow Rate 0 Sepsis Recent Fever Within 48 Hours Yes Sepsis New/Unexplained Change in Mental Status N/A Sepsis Action Taken by Nursing Physician Notified 11/23/24 16:15 11/23/24 16:30 11/23/24 17:03 Temperature Temperature Source Pulse Rate 87 77 73 Pulse Rate from SpO2 Sensor 88 77 79 Pulse Rhythm Pulse Strength Respiratory Rate 14 16 15 Respiratory Effort / Characteristics Respiratory Depth Respiratory Pattern Blood Pressure 85/55 L 79/48 L 68/48 L Blood Pressure Mean 65 58 54 Blood Pressure Position Pulse Oximetry 98 97 97 Oxygen Delivery Method Room Air Room Air Room Air Oxygen Flow Rate Sepsis Recent Fever Within 48 Hours Sepsis New/Unexplained Change in Mental Status Sepsis Action Taken by Nursing 11/23/24 17:14 11/23/24 17:45 Temperature Temperature Source Pulse Rate 72 63 Pulse Rate from SpO2 Sensor 73 83 Pulse Rhythm Pulse Strength Respiratory Rate 16 15 Respiratory Effort / Characteristics Respiratory Depth Respiratory Pattern Blood Pressure 89/61 L 97/58 L Blood Pressure Mean 77 66 Blood Pressure Position Pulse Oximetry 99 99 Oxygen Delivery Method Room Air Room Air Oxygen Flow Rate Sepsis Recent Fever Within 48 Hours Sepsis New/Unexplained Change in Mental Status Sepsis Action Taken by Nursing Laboratory Data 11/23/24 16:00 11/23/24 16:00 Lab Results 11/23/24 Range/Units 16:00 WBC 13.02 H (4.8-10.8) K/ul RBC 2.74 L (4.20-5.40) M/uL Hgb 8.2 L (12.0-16.0) g/dl Hct 26.0 L (37.0-47.0) % MCV 94.9 (80.0-100.0) fL MCH 29.9 (25.0-34.0) pg MCHC 31.5 L (32.0-36.0) g/dL RDW Std Deviation 54.8 H (36.4-46.3) fL RDW Coeff of Addie 15.9 H (11.5-14.5) % Plt Count 332 (130-400) K/uL MPV 9.8 (9.4-12.4) fL Immature Gran % (Auto) 1.2 % Neut % (Auto) 90.3 % Lymph % (Auto) 2.8 % Citrus % (Auto) 5.3 % Eos % (Auto) 0.1 % Baso % (Auto) 0.3 % Neut # (Auto) 11.76 H (1.40-6.50) K/uL Lymph # (Auto) 0.37 L (1.20-3.40) K/uL Citrus # (Auto) 0.69 H (0.11-0.59) K/uL Eos # (Auto) 0.01 (0.00-0.50) K/uL Baso # (Auto) 0.04 (0.00-0.20) K/uL Immature Gran # (Auto) 0.15 (0.01-0.20) K/uL Polychromasia 1+ Echinocytes 1+ Sodium 133 L (136-145) mmol/L Potassium 4.1 (3.5-5.1) mmol/L Chloride 112 H (98-107) mmol/L Carbon Dioxide 12 L (21-32) mmol/L Anion Gap 9 (3-11) BUN 36 H (6-23) mg/dl Creatinine 2.33 H (0.6-1.2) mg/dl Est Cr Clr Drug Dosing 14.9 ml/min eGFR 20.26 BUN/Creatinine Ratio 15.5 (10-20) Glucose 118 H (70-99(Fasting)) mg/dl Lactate 1.4 (0.4-2.0) mmol/L Calcium 8.5 L (8.6-10.3) mg/dl Magnesium 2.0 (1.7-2.4) mg/dl Total Bilirubin 0.3 (0.2-1.0) mg/dl AST 12 L (13-39) U/L ALT 12 (7-52) U/L Alkaline Phosphatase 139 H (34-104) U/L Total Protein 6.0 (6.0-8.3) gm/dl Albumin 2.8 L (3.4-5.0) gm/dl Globulin 3.2 (2.5-4.0) gm/dl Albumin/Globulin Ratio 0.9 (0.9-2) TSH 3.847 (0.300-4.500) uIu/ml Administered Medications Sodium Bicarbonate 100 meq/ (Sodium Chloride) 1,100 mls @ 100 mls/hr IV .Q11H MEGAN Stop: 12/23/24 17:59 Last Admin: 11/23/24 19:50 Dose: 100 mls/hr Documented By: SNS Norepinephrine Bitartrate (Levophed/D5w) 4 mg in 250 mls @ 9.656 mls/hr IV .Q24H [facility]; Protocol Stop: 12/23/24 21:44 Last Admin: 11/23/24 21:38 Dose: 0.05 mcg/kg/min, 9.7 mls/hr Documented By: MARCO Co-signed By: Discontinued Medications Acetaminophen (Ofirmev) 1,000 mg in 100 mls @ 400 mls/hr IV NOW STA Stop: 11/23/24 15:47 Last Infusion: 11/23/24 16:36 Dose: Infused Documented By: Admin: 11/23/24 16:23 Dose: 400 mls/hr Documented By: SRL Sodium Chloride (Nss) 1,000 mls @ 999 mls/hr IV .Q1H1M ONE Stop: 11/23/24 16:33 Last Infusion: 11/23/24 17:20 Dose: Infused Documented By: Admin: 11/23/24 16:23 Dose: 999 mls/hr Documented By: SRL Sodium Chloride (Nss) 500 mls @ 999 mls/hr IV .Q31M ONE Stop: 11/23/24 16:03 Last Infusion: 11/23/24 17:33 Dose: Infused Documented By: Admin: 11/23/24 17:05 Dose: 999 mls/hr Documented By: FRANKO Cefepime HCl (Maxipime 2000mg) 2,000 mg in 20 mls @ 5 mls/min IV NOW STA; Protocol Stop: 11/23/24 15:37 Last Admin: 11/23/24 16:26 Dose: 5 mls/min Documented By: SRL Vancomycin HCl 1,000 mg/ (Sodium Chloride) 520 mls @ 200 mls/hr IV NOW ONE Stop: 11/23/24 19:58 Last Admin: 11/23/24 19:21 Dose: 200 mls/hr Documented By: MARCO Sodium Chloride (Nss) 500 mls @ 999 mls/hr IV .Q31M ONE Stop: 11/23/24 18:03 Last Infusion: 11/23/24 18:01 Dose: Infused Documented By: Admin: 11/23/24 17:34 Dose: 999 mls/hr Documented By: SRL Sodium Chloride (Nss) 500 mls @ 999 mls/hr IV .Q31M ONE Stop: 11/23/24 22:04 Last Admin: 11/23/24 21:42 Dose: 999 mls/hr Documented By: [facility] ([place], [place]) Imaging Data Radiologist's Impression: Chest X-Ray 11/23/24 15:24 XR chest 1V portable CLINICAL HISTORY: weakness TECHNIQUE: Single frontal radiograph of the chest was obtained. Comparison: Comparison is made to chest radiograph 10/13/2024 FINDINGS: No lines and tubes are seen. Cardiomegaly is noted. The aortic arch is calcified. There is a faint opacity in the right lower lung. No evidence of pleural effusion or pneumothorax. IMPRESSION: Faint right lower lung opacity may represent atelectasis, pneumonia, and/or aspiration. ACT 112: Negative or not required by law. Electronically signed by: Raman Major M.D. 11/23/2024 3:49 PM Abdomen/Pelvis CT 11/23/24 15:34 EXAM: CT Abdomen and Pelvis Without Intravenous Contrast INDICATION: Sepsis. Ureteral stents. TECHNIQUE: Axial computed tomography images of the abdomen and pelvis without intravenous contrast. Sagittal and coronal reformatted images were created and reviewed. This CT exam was performed using one or more of the following dose reduction techniques: automated exposure control, adjustment of the mA and/or kV according to patient size, and/or use of iterative reconstruction technique. COMPARISON: 09/16/2024 and 02/05/2024 FINDINGS: Limitations: None. Lung bases: New consolidation in the right middle lobe identified. The proximal airways are not included. Pleural space: No basilar pleural effusion. Heart: No abnormality noted. Mediastinum: No abnormality noted. ABDOMEN: Liver: Lack of intravenous contrast limits detection of some masses. No abnormality noted. Gallbladder and bile ducts: No calcified stones or surrounding fluid. Pancreas: No pancreatic mass, calcification, inflammation or ductal dilation noted. Spleen: No significant abnormality noted. Adrenals: No significant abnormality noted. Kidneys and ureters: There is persistent but decreased inflammation of the left renal pelvis with fragmentation of previously noted renal pelvic calculus with multiple fragments along the proximal loop and in the left calyces. Nonobstructing right kidney stones unchanged. Resolved hydronephrosis. Small amount of gas in the right collecting system is not unusual with stents in place. Hypodensities right kidney consistent with simple cysts. Stomach and bowel: No distension or mucosal thickening. No inflammation noted. PELVIS: Appendix: No findings to suggest acute appendicitis. Bladder: Multiple small stones noted in the bladder. Reproductive: No abnormalities noted. ABDOMEN and PELVIS: Intraperitoneal space: No free air. No significant fluid collection. Bones/joints: Degenerative changes noted in the scoliotic spine. No acute osseous abnormality noted. Visualized portions of bilateral femoral hardware intact. Soft tissues: Stable partially imaged calcification in the right breast. There is a stable midline incisional hernia containing fat. Stable atrophy of the musculature of the anterior left hip compartment. Vasculature: Atherosclerotic calcification of the aorta and branches. No aneurysm. Lymph nodes: No pathologically enlarged lymph nodes. Tubes, lines and devices: Bilateral ureteral stents noted with the proximal loops in the renal pelves and the distal loops in the bladder. IMPRESSION: 1. Bilateral ureteral stents in good position with resolved hydronephrosis and decreased left parapelvic inflammation. 2. Interval fragmentation of left renal pelvic stone with numerous fragments layering in the renal pelvis and the left renal calyces. 3. Multiple small stones noted in the bladder. ACT 112: Negative or not required by law. Electronically signed by Melissa Reich 11-23-2024 4:40 PM Discharge Plan Visit Data Chief Complaint: Urinary Symptoms Stated Complaint: UTI ED Provider: Dre Castillo Discharge Problem: Sepsis, Urinary tract infection, Ureteral stent present Discharge Instructions Interventions: ED Discharge Assessment Last Done: 11/23/24 19:59
[2024-11-23] MEDS: SODIUM CHLORIDE 0.9% 1,000 ML IV ONE (16:23)
[2024-11-23] MEDS: ACETAMINOPHEN 1,000 MG/100 ML VIAL IV STA (16:23)
[2024-11-23] MEDS: CEFEPIME 2000MG 2,000 MG/20 ML SYR IV STA (16:26)
[2024-11-23 16:31] LABS: Hemoglobin 8.2 g/dl (12.0-16.0); Mean Corpuscular Hemoglobin 29.9 pg (25.0-34.0); Mean Corpuscular Hgb Conc 31.5 g/dL (32.0-36.0); Mean Corpuscular Volume 94.9 fL (80.0-100.0); Mean Platelet Volume 9.8 fL (9.4-12.4); Platelet Count 332 K/uL (130-400); RDW Coefficient of Variation 15.9 % (11.5-14.5); RDW Standard Deviation 54.8 fL (36.4-46.3); Red Blood Count 2.74 M/uL (4.20-5.40); White Blood Count 13.02 K/ul (4.8-10.8)
--- NOTE | 2024-11-23 16:41 | CT Scan Report ---
EXAM: CT Abdomen and Pelvis Without Intravenous Contrast INDICATION: Sepsis. Ureteral stents. TECHNIQUE: Axial computed tomography images of the abdomen and pelvis without intravenous contrast. Sagittal and coronal reformatted images were created and reviewed. This CT exam was performed using one or more of the following dose reduction techniques: automated exposure control, adjustment of the mA and/or kV according to patient size, and/or use of iterative reconstruction technique. COMPARISON: 09/16/2024 and 02/05/2024 FINDINGS: Limitations: None. Lung bases: New consolidation in the right middle lobe identified. The proximal airways are not included. Pleural space: No basilar pleural effusion. Heart: No abnormality noted. Mediastinum: No abnormality noted. ABDOMEN: Liver: Lack of intravenous contrast limits detection of some masses. No abnormality noted. Gallbladder and bile ducts: No calcified stones or surrounding fluid. Pancreas: No pancreatic mass, calcification, inflammation or ductal dilation noted. Spleen: No significant abnormality noted. Adrenals: No significant abnormality noted. Kidneys and ureters: There is persistent but decreased inflammation of the left renal pelvis with fragmentation of previously noted renal pelvic calculus with multiple fragments along the proximal loop and in the left calyces. Nonobstructing right kidney stones unchanged. Resolved hydronephrosis. Small amount of gas in the right collecting system is not unusual with stents in place. Hypodensities right kidney consistent with simple cysts. Stomach and bowel: No distension or mucosal thickening. No inflammation noted. PELVIS: Appendix: No findings to suggest acute appendicitis. Bladder: Multiple small stones noted in the bladder. Reproductive: No abnormalities noted. ABDOMEN and PELVIS: Intraperitoneal space: No free air. No significant fluid collection. Bones/joints: Degenerative changes noted in the scoliotic spine. No acute osseous abnormality noted. Visualized portions of bilateral femoral hardware intact. Soft tissues: Stable partially imaged calcification in the right breast. There is a stable midline incisional hernia containing fat. Stable atrophy of the musculature of the anterior left hip compartment. Vasculature: Atherosclerotic calcification of the aorta and branches. No aneurysm. Lymph nodes: No pathologically enlarged lymph nodes. Tubes, lines and devices: Bilateral ureteral stents noted with the proximal loops in the renal pelves and the distal loops in the bladder. IMPRESSION: 1. Bilateral ureteral stents in good position with resolved hydronephrosis and decreased left parapelvic inflammation. 2. Interval fragmentation of left renal pelvic stone with numerous fragments layering in the renal pelvis and the left renal calyces. 3. Multiple small stones noted in the bladder. ACT 112: Negative or not required by law. Electronically signed by Melissa Reich 11-23-2024 4:40 PM
[2024-11-23 16:49] LABS: Albumin Globulin Ratio 0.9 (0.9-2); Albumin Level 2.8 gm/dl (3.4-5.0); BUN Creatinine Ratio 15.5 (10-20); Bilirubin,Total 0.3 mg/dl (0.2-1.0); Calcium 8.5 mg/dl (8.6-10.3); Creatinine Clr Calc Pharmacy 14.9 ml/min; Globulin 3.2 gm/dl (2.5-4.0); Potassium 4.1 mmol/L (3.5-5.1)
[2024-11-23 16:51] LABS: Basophils # (auto) 0.04 K/uL (0.00-0.20); Basophils % (auto) 0.3 %; Echinocytes 1+; Eosinophils # (auto) 0.01 K/uL (0.00-0.50); Eosinophils % (auto) 0.1 %; Immature Granulocytes # (auto) 0.15 K/uL (0.01-0.20); Immature Granulocytes % (auto) 1.2 %; Lymphocytes # (auto) 0.37 K/uL (1.20-3.40); Lymphocytes % (auto) 2.8 %; Monocytes # (auto) 0.69 K/uL (0.11-0.59); Monocytes % (auto) 5.3 %; Neutrophils # (auto) 11.76 K/uL (1.40-6.50); Neutrophils % (auto) 90.3 %; Polychromasia 1+
[2024-11-23 17:03] LABS: Thyroid Stimulating Hormone 3.847 uIu/ml (0.300-4.500)
[2024-11-23] MEDS: SODIUM CHLORIDE 0.9% 500 ML IV ONE ×3 (17:05→21:42)
[2024-11-23] MEDS ORDERED: VANCOMYCIN CONSULT ACTIVE PRN (17:23)
[2024-11-23 18:48] LABS: Base Excess VBG -15.4 mEq/L; HCO3 VBG 12 mmol/L; Oxygen Saturation VBG < 60.0 %; PCO2 VBG 30 mmHg (38-50); PO2 VBG 23 mmHg; pH VBG 7.19 (7.36-7.41)
[2024-11-23] MEDS: VANCOMYCIN HCL 1,000 MG in SODIUM CHLORIDE 0.9% 500 ML IV ONE (19:21)
[2024-11-23] MEDS: SODIUM BICARBONATE 8.4% 100 MEQ in SODIUM CHLORIDE 0.45 % 1,000 ML IV SCH (19:50)
[2024-11-23 19:58] LABS: Appearance Urine Turbid (Clear); Bacteria Urine Automated 2+ (None Seen); Bilirubin Urine Negative (Negative); Blood Urine 3+ (Negative); Cast Urine Automated 0-2 /lpf (0-2); Color Urine Orange; Epithelial Cell Urine Auto 0-2 /hpf (0-2); Glucose Urine UA Negative (Negative); Ketones Urine Negative (Negative); Leukocyte Esterase Urine 3+ (Negative); Nitrite Urine Negative (Negative); Protein Urine 3+ (Negative); RBC Urine Automated >20 /hpf (0-2); Specific Gravity Urine 1.013 (1.000-1.030); Urobilinogen Urine Negative (Negative); WBC Urine Automated >50 /hpf (0-5); pH Urine 5.5 (4.5-7.5)
--- NOTE | 2024-11-23 20:35 | Electrocardiogram Report ---
Test Reason : Blood Pressure : */* mmHG Vent. Rate : 90 BPM Atrial Rate : 90 BPM P-R Int : 166 ms QRS Dur : 74 ms QT Int : 338 ms P-R-T Axes : * 4 67 degrees QTcB Int : 413 ms Normal sinus rhythm Low voltage QRS Cannot rule out Anterior infarct , age undetermined Abnormal ECG When compared with ECG of 13-Oct-2024 04:42, No significant change was found Confirmed by Omari Matthew ([id number]) on 11/23/2024 8:35:21 PM Referred By: Confirmed By: Omari Matthew
[2024-11-23] MEDS ORDERED: PLASMA-LYTE A 500 ML IV ONE (21:30)
[2024-11-23] MEDS ORDERED: STAT IV Infusion **Titration per Protocol STA (21:32)
[2024-11-23] MEDS: NOREPINEPHRINE/D5W 4 MG/250 ML PLCT IV SCH (21:38)
[2024-11-23 21:52] LABS: Base Excess VBG -16.8 mEq/L; HCO3 VBG 11 mmol/L; Oxygen Saturation VBG 81.8 %; PCO2 VBG 31 mmHg (38-50); PO2 VBG 51 mmHg; pH VBG 7.15 (7.36-7.41)
[2024-11-23] MEDS ORDERED: fentaNYL citrate PF 100 MCG/2 ML VIAL ONE (22:11)
[2024-11-23] MEDS ORDERED: PROPOFOL IV EMULSION 10 MG/ML 20 ML VIAL IV ONE (22:11)
[2024-11-23] MEDS ORDERED: ONDANSETRON INJ 2 MG/ML 2 ML VIAL ONE (22:15)
[2024-11-23 22:18] LABS: Albumin Level 2.4 gm/dl (3.4-5.0); BUN Creatinine Ratio 16.2 (10-20); Bilirubin,Total 0.2 mg/dl (0.2-1.0); Calcium 7.5 mg/dl (8.6-10.3); Creatinine Clr Calc Pharmacy 16.5 ml/min; Globulin 2.5 gm/dl (2.5-4.0); Potassium 3.8 mmol/L (3.5-5.1); Total Protein 4.9 gm/dl (6.0-8.3)
[2024-11-23] MEDS ORDERED: LIDOCAINE 2% 20 MG/ML 5 ML SYR IV ONE (22:21)
[2024-11-23] MEDS ORDERED: PHENYLEPHRINE HCL 10 MG/ML VIAL ONE (22:21)
[2024-11-23] MEDS ORDERED: fentaNYL citrate PF 100 MCG/2 ML VIAL IV PRN (22:25)
[2024-11-23] MEDS ORDERED: ePHEDrine sulfate 50 MG/ML AMP IV PRN (22:25)
[2024-11-23] MEDS ORDERED: ATROPINE SULFATE 0.1 MG/ML 10ML SYR IV PRN (22:25)
[2024-11-23] MEDS ORDERED: ONDANSETRON INJ 2 MG/ML 2 ML VIAL IV PRN (22:25)
--- NOTE | 2024-11-23 22:25 | Anesthesiology Consultation ---
Date of Service November 23, 2024 Assessment & Plan Chart Review Chart Review: Acceptable Risk for Surgery and Patient NOT seen in Pre Admission Testing Consults Requested none ASA ASA3E Proposed Anesthesia Anesthesia Type: General and MAC Risk / Benefits Reviewed With: PT / POA / Parent / Guardian, Accepts Plan and Informed Consent Obtained Additional Comments: Sepsis in s/o UTI. Off norepi and improving hemodynamically. Plan for MAC. ASA3E. History Surgery Operation Date: 11/23/24 22:00 Proposed Procedures p Cystoscopy, Bilateral Ureteral Stent Insertion(Bilateral) - Jose Antonio Fitzgerald MD Height/Weight Height: 5 ft 3 in Weight: 51.5 kg Allergies Allergy/AdvReac Type Severity Reaction Status Date / Time influenza virus vaccine, Allergy Severe G[place]an Verified 10/11/24 10:26 specific [place] Syndrome Sulfa (Sulfonamide Allergy Unknown Unknown Verified 10/11/24 10:26 Antibiotics) cephalexin AdvReac Mild Nausea Verified 10/11/24 10:26 Medications Home Medications Medication Instructions Recorded Confirmed Last Taken ferrous sulfate 325 mg (65 mg 325 mg PO 3XWK 07/17/18 11/23/24 1 Week Ago iron) tablet (iron) ~09/27/24 raloxifene 60 mg tablet 60 mg PO QAM 01/20/20 11/23/24 10/03/24 cyanocobalamin (vitamin B-12) 500 500 mcg PO QAM 12/20/20 11/23/24 1 Week Ago mcg tablet (Vitamin B-12) ~09/27/24 cranberry extract 500 mg capsule 0 mg PO QAM 05/08/21 11/23/24 1 Week Ago (Cranberry Concentrate) ~09/27/24 potassium chloride 10 mEq 20 meq PO TID 04/09/22 11/23/24 10/03/24 tablet,extended release acetaminophen 500 mg tablet 1,000 mg PO Q8 PRN Pain 02/05/24 11/23/24 Unknown cholecalciferol (vitamin D3) 125 125 mcg PO WK 09/27/24 11/23/24 1 Week Ago mcg (5,000 unit) tablet (Vitamin ~09/27/24 D3) diphenhydramine 25 2 tab PO HS 09/27/24 11/23/24 10/02/24 mg-acetaminophen 500 mg tablet (Tylenol PM Extra Strength) Active Medications Generic Name Dose Route Start Last Admin Trade Name Carmela PRN Reason Stop Dose Admin Norepinephrine Bitartrate 4 mg in 250 mls @ 0 mls/hr 11/23/24 21:45 11/23/24 22:35 Levophed/D5w IV 12/23/24 21:44 0 mcg/kg/min .Q0M MEGAN 0 mls/hr Titration Protocol 0 MCG/KG/MIN Past Medical History Medical History History of colitis Neuropathy involving both lower extremities Hydronephrosis concurrent with and due to calculi of kidney and ureter History of seizure Single episode s/p benign brain tumor excision (1998) No issues since History of right breast cancer (2000) s/p radiation Kidney stones Anemia 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 Osteoarthritis 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 Past Family History Family History Mother Macular degeneration Father Kidney stone Diabetes Past Surgical History Surgical History Hx of lithotripsy (01/18/21) S/P cystoscopy with ureteral stent placement Multiple History of tooth extraction History of colonoscopy History of appendectomy History of total knee replacement R/L (2020) History of hip surgery right and left due to falling History of brain surgery (1998) 1998; benign tumor excision Hx of hysterectomy Hx of lumpectomy Right breast- had xrt Past Anesthesia History No Hx of Anesthesia Complications and No Family Hx of Anesthesia Complications Social History Smoking Status: Never smoker Do You Dip or Chew Tobacco: No Hx Alcohol Use: No Hx Substance Use: No substance use type: does not use Physical Exam Vital Signs Last Vital Signs Temp 36.9 C 11/23/24 15:19 Pulse 144 H 11/23/24 21:45 Resp 16 11/23/24 21:56 BP 130/93 11/23/24 22:37 Pulse Ox 99 11/23/24 21:56 O2 Del Method Room Air 11/23/24 21:56 O2 Flow Rate 0 11/23/24 16:06 ENMT Mouth: no TMJ abnormality Thyromental Distance: > or= 3.5 Finger Breadths Mallampati Class: II Neck normal visual inspection and trachea midline; neck extension not limited Respiratory normal respiratory effort Auscultation: lungs clear to auscultation bilaterally Cardiovascular Rate/Rhythm: regular rate and regular rhythm Heart Sounds: no murmur Musculoskeletal Spine: normal cervical ROM Extremities: full ROM of extremities Neurologic moves all extremities Psychiatric Orientation: alert and oriented x 3 Testing Laboratory Results 11/23/24 16:00 11/23/24 21:40 Urine Color [place] 11/23/24 19:35 Urine Appearance Turbid (Clear) A 11/23/24 19:35 Urine pH 5.5 (4.5-7.5) 11/23/24 19:35 Ur Specific [place] 1.013 (1.000-1.030) 11/23/24 19:35 Urine Protein 3+ (Negative) H 11/23/24 19:35 Urine Glucose (UA) Negative (Negative) 11/23/24 19:35 Urine Ketones Negative (Negative) 11/23/24 19:35 Urine Nitrite Negative (Negative) 11/23/24 19:35 Ur Leukocyte Esterase 3+ (Negative) H 11/23/24 19:35 Urine WBC (Auto) >50 /hpf (0-5) H 11/23/24 19:35 Urine RBC (Auto) >20 /hpf (0-2) H 11/23/24 19:35 U Hyaline Cast (Auto) 0-2 /lpf (0-2) 11/23/24 19:35 U Epithel Cells (Auto) 0-2 /hpf (0-2) 11/23/24 19:35 Urine Bacteria (Auto) 2+ (None Seen) H 11/23/24 19:35 Electrocardiogram Date: 11/23/24 Normal sinus rhythm Low voltage QRS Cannot rule out Anterior infarct , age undetermined Abnormal ECG When compared with ECG of 13-Oct-2024 04:42, No significant change was found
--- NOTE | 2024-11-23 22:30 | Urology Consultation ---
Date of Consultation November 23, 2024 Assessment & Plan (1) Ureteral stent present: (2) Urinary tract infection: (3) Sepsis: Plan Based on her initial imaging, it seemed that both kidneys were draining reasonably well. It seems likely that there is a urinary tract infection causing the gas in the bladder. This could be transmitted up with the stent in a retrograde fashion. Typically stents can go at least a couple months without becoming encrusted, however given her worsening infectious symptoms and vital signs, we discussed the role for cystoscopy, bilateral retrograde pyelogram and bilateral ureteral stent exchange to ensure that everything is draining appropriately. We discussed risks and benefits of surgery. We specifically discussed risk of bleeding, infection, inability to remove or replace stent, need for additional procedures. She expressed understanding and would like to proceed. We will plan to proceed with surgery, cystoscopy and bilateral stent exchange. Continue broad-spectrum antibiotics and supportive care History of Present Illness Reason for Consultation: Urinary tract infection, sepsis, concern for ureteral obstruction Attending Physician: Angelo Sheramn MD History of Present Illness This is an 84-year-old female followed by urology for nephrolithiasis. She underwent bilateral ureteroscopy with stone removal on 10/04/2024. Ureteral stents were placed at that time. She presented to the emergency department on 11/23/2024 with worsening urinary s ymptoms. She was also having some increased weakness and just overall not feeling well. Workup in the ED was notable for mild leukocytosis (WBC 13.02) with left shift. Creatinine was elevated 2.10. Her lactate was normal at 1.4 and 0.7. Urinalysis demonstrated bacteria, leukocyte esterase, concerning for infection. A CT scan of the abdomen and pelvis was performed. I independently reviewed these images from 11/23/2024. Both kidneys are in normal position. There are stents in place bilaterally. There is a cluster of persistent calcification or stones in the left kidney. There is a focus of gas in the collecting system of the right kidney. There is some gas within the lumen of the bladder as well. I discussed this with the emergency department initially, with the plan for supportive care and IV antibiotics, however her blood pressure worsened to the point of requiring pressors in addition to fluid boluses. Allergies Allergy/AdvReac Type Severity Reaction Status Date / Time influenza virus vaccine, Allergy Severe Gillean Verified 10/11/24 10:26 specific [place] Syndrome Sulfa (Sulfonamide Allergy Unknown Unknown Verified 10/11/24 10:26 Antibiotics) cephalexin AdvReac Mild Nausea Verified 10/11/24 10:26 Home Medications Medication Instructions Recorded Confirmed Type ferrous sulfate 325 mg (65 mg 325 mg PO 3XWK 07/17/18 11/23/24 History iron) tablet (iron) raloxifene 60 mg tablet 60 mg PO QAM 01/20/20 11/23/24 History cyanocobalamin (vitamin B-12) 500 500 mcg PO QAM 12/20/20 11/23/24 History mcg tablet (Vitamin B-12) cranberry extract 500 mg capsule 0 mg PO QAM 05/08/21 11/23/24 History (Cranberry Concentrate) potassium chloride 10 mEq 20 meq PO TID 04/09/22 11/23/24 History tablet,extended release acetaminophen 500 mg tablet 1,000 mg PO Q8 PRN Pain 02/05/24 11/23/24 History cholecalciferol (vitamin D3) 125 125 mcg PO WK 09/27/24 11/23/24 History mcg (5,000 unit) tablet (Vitamin D3) diphenhydramine 25 2 tab PO HS 09/27/24 11/23/24 History mg-acetaminophen 500 mg tablet (Tylenol PM Extra Strength) Patient History Medical History Anemia Chronic History of colitis History of right breast cancer (2000) s/p radiation History of seizure Single episode s/p benign brain tumor excision (1998) No issues since 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 Hydronephrosis concurrent with and due to calculi of kidney and ureter Kidney stones Neuropathy involving both lower extremities Osteoarthritis Surgical History History of appendectomy History of brain surgery (1998) 1998; benign tumor excision History of colonoscopy History of hip surgery right and left due to falling History of tooth extraction History of total knee replacement R/L (2020) Hx of hysterectomy Hx of lithotripsy (01/18/21) Hx of lumpectomy Right breast- had xrt S/P cystoscopy with ureteral stent placement Multiple Family History Mother Macular degeneration Father Kidney stone Diabetes Social History Smoking Status: Never smoker Tobacco Type: Declines Second Hand Exposure: No; Do You Dip or Chew Tobacco: No; Hx Alcohol Use: No Hx Substance Use: No Preferred Language: Indonesian Communication Ability: Effective Visual Impairment: No Limitations [employer] Required: No Beliefs That Will Affect Care: None marital status: / Current Living Situation: Alone Current Living Situation Comment: son Feels Safe at Home: Yes Assistive Devices: Denture - Upper, Denture - Lower, Glasses and Hearing Aid - Bilateral Review of Systems Review of Systems: 12 point review of systems negative exce pt for otherwise indicated. Physical Exam Constitutional: well developed and well nourished; no acute distress Eyes: + anicteric sclerae; pupils not irregula r Respiratory: normal respiratory effort; no respiratory distress, does not use accessory muscles and no cough Cardiovascular: well perfused Gastrointestinal (Abdomen): Inspection/Auscultation: abdomen normal to inspection; abdomen not distended Musculoskeletal: Extremities: extremities normal to inspection Skin: normal turgor; no rashes and no lesions Neurologic: moves all extremities and awake Psychiatric: Orientation: alert and oriented x 3 Results & Data Vital Signs (Past 12 Hours) Vital Signs Temp Pulse Pulse Resp BP BP Pulse Ox 11/23/24 21:56 16 94/46 L 99 11/23/24 21:50 93/48 L 11/23/24 21:50 93/48 L 11/23/24 21:46 73/51 L 11/23/24 21:46 73/51 L 11/23/24 21:45 144 H 11 L 100 11/23/24 21:40 79/39 L 11/23/24 21:39 1 L 100 11/23/24 21:21 12 99 11/23/24 21:20 69/35 L 11/23/24 21:10 72/34 L 11/23/24 21:09 147 H 12 98 11/23/24 21:03 76 13 99 11/23/24 21:00 76/54 L 11/23/24 21:00 76/54 L 11/23/24 21:00 76/54 L 11/23/24 20:52 84/41 L 11/23/24 20:51 176 H 24 100 11/23/24 20:48 134 H 28 H 99 11/23/24 20:48 66/36 L 11/23/24 20:48 66/36 L 11/23/24 20:48 66/36 L 11/23/24 20:45 156 H 12 97 11/23/24 20:45 63/39 L 11/23/24 20:45 63/39 L 11/23/24 20:42 150 H 12 97 11/23/24 20:30 76/44 L 11/23/24 20:24 151 H 16 88 L 11/23/24 20:15 82/63 L 11/23/24 20:04 92 11/23/24 20:03 85 16 92/59 L 93 11/23/24 20:00 95 H 22 99 11/23/24 20:00 92/59 L 11/23/24 20:00 92/59 L 11/23/24 19:46 81/61 L 11/23/24 19:46 81/61 L 11/23/24 19:46 81/61 L 11/23/24 19:41 16 90/63 L 99 11/23/24 19:39 140 H 15 100 11/23/24 19:39 90/63 L 11/23/24 19:39 90/63 L 11/23/24 19:30 73/49 L 11/23/24 19:30 73/49 L 11/23/24 19:22 85 11/23/24 19:18 87 22 99 11/23/24 19:17 84/54 L 11/23/24 19:17 84/54 L 11/23/24 19:06 39 L 10 L 99 11/23/24 19:03 69 15 99 11/23/24 19:00 86/61 L 11/23/24 18:53 85/58 L 11/23/24 18:53 85/58 L 11/23/24 18:48 73 9 L 98 11/23/24 18:45 91/60 L 11/23/24 18:45 91/60 L 11/23/24 18:45 91/60 L 11/23/24 18:45 91/60 L 11/23/24 18:42 71 17 99 11/23/24 18:31 99/54 L 11/23/24 18:30 89 14 82 L 11/23/24 18:15 91/63 L 11/23/24 18:12 80 12 11/23/24 18:03 76 11 L 11/23/24 18:00 65 15 84/54 L 99 11/23/24 17:56 63 20 99 11/23/24 17:45 63 15 97/58 L 99 11/23/24 17:14 72 16 89/61 L 99 11/23/24 17:03 73 15 68/48 L 97 11/23/24 16:30 77 16 79/48 L 97 11/23/24 16:15 87 14 85/55 L 98 11/23/24 16:06 96 11/23/24 15:26 101 H 11/23/24 15:19 36.9 C 103 H 20 84/48 L 98 O2 Del Method O2 Flow Rate 11/23/24 21:56 Room Air 11/23/24 21:50 11/23/24 21:50 11/23/24 21:46 11/23/24 21:46 11/23/24 21:45 11/23/24 21:40 11/23/24 21:39 11/23/24 21:21 11/23/24 21:20 11/23/24 21:10 11/23/24 21:09 11/23/24 21:03 11/23/24 21:00 11/23/24 21:00 11/23/24 21:00 11/23/24 20:52 11/23/24 20:51 11/23/24 20:48 11/23/24 20:48 11/23/24 20:48 11/23/24 20:48 11/23/24 20:45 11/23/24 20:45 11/23/24 20:45 11/23/24 20:42 11/23/24 20:30 11/23/24 20:24 11/23/24 20:15 11/23/24 20:04 Room Air 11/23/24 20:03 Room Air 11/23/24 20:00 11/23/24 20:00 11/23/24 20:00 11/23/24 19:46 11/23/24 19:46 11/23/24 19:46 11/23/24 19:41 Room Air 11/23/24 19:39 11/23/24 19:39 11/23/24 19:39 11/23/24 19:30 11/23/24 19:30 11/23/24 19:22 11/23/24 19:18 11/23/24 19:17 11/23/24 19:17 11/23/24 19:06 11/23/24 19:03 11/23/24 19:00 11/23/24 18:53 11/23/24 18:53 11/23/24 18:48 11/23/24 18:45 11/23/24 18:45 11/23/24 18:45 11/23/24 18:45 11/23/24 18:42 11/23/24 18:31 11/23/24 18:30 11/23/24 18:15 11/23/24 18:12 11/23/24 18:03 11/23/24 18:00 Room Air 11/23/24 17:56 Room Air 11/23/24 17:45 Room Air 11/23/24 17:14 Room Air 11/23/24 17:03 Room Air 11/23/24 16:30 Room Air 11/23/24 16:15 Room Air 11/23/24 16:06 Room Air 0 11/23/24 15:26 11/23/24 15:19 Room Air PG Care Time/CCT Total # of Minutes Spent Total Time Spent with Patient: Total time spent is greater than 50% in coordination of care (as documented) at patient's floor/unit and/or counseling patient: Coding Level of Care Code 81907 INT INP/OBS CARE 2/55MIN Diagnoses Ureteral stent present Z96.0 Urinary tract infection N39.0 Sepsis A41.9
[2024-11-23] MEDS ORDERED: SUCCINYLCHOLINE CHLORIDE 20 MG/ML 10 ML VIAL IV ONE (23:10)
--- NOTE | 2024-11-23 23:24 | Operative Report ---
PG Post Operative Report Pre & Post Diagnosis Operation Date: 11/23/24 22:00 Preoperative diagnosis: UTI, hydronephrosis Postoperative diagnosis: UTI, hydronephrosis I identified the patient and participated in the time-out.: Yes Procedure Operation Date: 11/23/24 22:00 Cystoscopy, bilateral ureteral stent exchange Surgeon Jose Antonio Fitzgerald MD Pulp House Supervisor None Estimated Blood Loss 0 Findings See Below Turbid urine in the bladder evacuated Successful bilateral ureteral stent exchange Specimens None Drains 6 [place] by 24 cm double-J ureteral stents bilaterally Anesthesia Type MAC Complications none Disposition Accompanied Patient To Recovery: Yes Disposition: Recovery Room Indications This is an 84-year-old female who presented to the emergency department and was found to have UTI as well as bilateral hydronephrosis with stents in place. Due to worsening vital signs and concern for possible obstructive infection, she presents to the OR for stent exchange. Description of Procedure The patient was identified in the holding area and informed consent was confirmed. She was taken to the operating room where anesthesia was initiated. She was placed in the dorsal lithotomy position with all pressure points appropriately padded. She was prepped and draped in the usual sterile fashion and a preoperative timeout was performed. A well-lubricated cystoscope was inserted per urethra and panendoscopy was performed. The urethra was normal in appearance. There was a lot of turbid urine within the bladder. This was evacuated. Alongside the right ureteral stent, I advanced a 0.038 inch zip wire up to the right kidney under fluoroscopic guidance. In a similar fashion, I advanced a separate wire up to the left kidney along the stent. Once the wires were in good position, both stents were removed. Over the first wire, a 6 [place] by 24 cm double-J ureteral stent was advanced up to the right kidney. When the wire was removed, there was a good curl in the renal pelvis. Over the second wire, a separate 6 [place] by 24 cm double-J ureteral stent was advanced to the left kidney. This also had a good curl when the wire was removed. The cystoscope demonstrated both stents to be in good position with curls in the bladder. Due to suspicion for incomplete bladder emptying, a 16 [place] catheter was advanced per urethra. The balloon was inflated with 10 mL normal saline and the catheter was attached to gravity drainage. The patient was then awakened from anesthesia and was brought to the ICU for recovery and ongoing care. In stable condition. I attest to the content of the Intraoperative Record and any orders documented therein. Any exceptions are noted below.
[2024-11-23] MEDS: SODIUM BICARBONATE 8.4% 150 MEQ in SODIUM CHLORIDE 0.45 % 1,000 ML IV SCH (23:30)
--- NOTE | 2024-11-23 23:42 | Anesthesiology Progress Note ---
Date of Service November 23, 2024 Anesthesia Post Procedure Vital Signs Vital Signs: Temp Pulse Pulse Resp BP BP Pulse Ox 11/23/24 23:37 36 C L 69 13 97/51 L 95 11/23/24 22:37 130/93 11/23/24 21:56 16 94/46 L 99 11/23/24 21:50 93/48 L 11/23/24 21:50 93/48 L 11/23/24 21:46 73/51 L 11/23/24 21:46 73/51 L 11/23/24 21:45 144 H 11 L 100 11/23/24 21:40 79/39 L 11/23/24 21:39 1 L 100 11/23/24 21:21 12 99 11/23/24 21:20 69/35 L 11/23/24 21:10 72/34 L 11/23/24 21:09 147 H 12 98 11/23/24 21:03 76 13 99 11/23/24 21:00 76/54 L 11/23/24 21:00 76/54 L 11/23/24 21:00 76/54 L 11/23/24 20:52 84/41 L 11/23/24 20:51 176 H 24 100 11/23/24 20:48 134 H 28 H 99 11/23/24 20:48 66/36 L 11/23/24 20:48 66/36 L 11/23/24 20:48 66/36 L 11/23/24 20:45 156 H 12 97 11/23/24 20:45 63/39 L 11/23/24 20:45 63/39 L 11/23/24 20:42 150 H 12 97 11/23/24 20:30 76/44 L 11/23/24 20:24 151 H 16 88 L 11/23/24 20:15 82/63 L 11/23/24 20:04 92 11/23/24 20:03 85 16 92/59 L 93 11/23/24 20:00 95 H 22 99 11/23/24 20:00 92/59 L 11/23/24 20:00 92/59 L 11/23/24 19:46 81/61 L 11/23/24 19:46 81/61 L 11/23/24 19:46 81/61 L 11/23/24 19:41 16 90/63 L 99 11/23/24 19:39 140 H 15 100 11/23/24 19:39 90/63 L 11/23/24 19:39 90/63 L 11/23/24 19:30 73/49 L 11/23/24 19:30 73/49 L 11/23/24 19:22 85 11/23/24 19:18 87 22 99 11/23/24 19:17 84/54 L 11/23/24 19:17 84/54 L 11/23/24 19:06 39 L 10 L 99 11/23/24 19:03 69 15 99 11/23/24 19:00 86/61 L 11/23/24 18:53 85/58 L 11/23/24 18:53 85/58 L 11/23/24 18:48 73 9 L 98 11/23/24 18:45 91/60 L 11/23/24 18:45 91/60 L 11/23/24 18:45 91/60 L 11/23/24 18:45 91/60 L 11/23/24 18:42 71 17 99 11/23/24 18:31 99/54 L 11/23/24 18:30 89 14 82 L 11/23/24 18:15 91/63 L 11/23/24 18:12 80 12 11/23/24 18:03 76 11 L 11/23/24 18:00 65 15 84/54 L 99 11/23/24 17:56 63 20 99 11/23/24 17:45 63 15 97/58 L 99 11/23/24 17:14 72 16 89/61 L 99 11/23/24 17:03 73 15 68/48 L 97 11/23/24 16:30 77 16 79/48 L 97 11/23/24 16:15 87 14 85/55 L 98 11/23/24 16:06 96 11/23/24 15:26 101 H 11/23/24 15:19 36.9 C 103 H 20 84/48 L 98 O2 Del Method O2 Flow Rate 11/23/24 23:37 Oxymask 8 11/23/24 22:37 11/23/24 21:56 Room Air 11/23/24 21:50 11/23/24 21:50 11/23/24 21:46 11/23/24 21:46 11/23/24 21:45 11/23/24 21:40 11/23/24 21:39 11/23/24 21:21 11/23/24 21:20 11/23/24 21:10 11/23/24 21:09 11/23/24 21:03 11/23/24 21:00 11/23/24 21:00 11/23/24 21:00 11/23/24 20:52 11/23/24 20:51 11/23/24 20:48 11/23/24 20:48 11/23/24 20:48 11/23/24 20:48 11/23/24 20:45 11/23/24 20:45 11/23/24 20:45 11/23/24 20:42 11/23/24 20:30 11/23/24 20:24 11/23/24 20:15 11/23/24 20:04 Room Air 11/23/24 20:03 Room Air 11/23/24 20:00 11/23/24 20:00 11/23/24 20:00 11/23/24 19:46 11/23/24 19:46 11/23/24 19:46 11/23/24 19:41 Room Air 11/23/24 19:39 11/23/24 19:39 11/23/24 19:39 11/23/24 19:30 11/23/24 19:30 11/23/24 19:22 11/23/24 19:18 11/23/24 19:17 11/23/24 19:17 11/23/24 19:06 11/23/24 19:03 11/23/24 19:00 11/23/24 18:53 11/23/24 18:53 11/23/24 18:48 11/23/24 18:45 11/23/24 18:45 11/23/24 18:45 11/23/24 18:45 11/23/24 18:42 11/23/24 18:31 11/23/24 18:30 11/23/24 18:15 11/23/24 18:12 11/23/24 18:03 11/23/24 18:00 Room Air 11/23/24 17:56 Room Air 11/23/24 17:45 Room Air 11/23/24 17:14 Room Air 11/23/24 17:03 Room Air 11/23/24 16:30 Room Air 11/23/24 16:15 Room Air 11/23/24 16:06 Room Air 0 11/23/24 15:26 11/23/24 15:19 Room Air Pain Intensity Buttock: Pain Intensity: 5 Transfer of Care Handoff Completed per policy Notes Mental Status: alert / awake / arousable Patient Amnestic to Procedure: Yes Nausea / Vomiting: adequately controlled Pain: adequately controlled Airway Patency, RR, SpO2: stable & adequate BP & HR: stable & adequate Hydration State: stable & adequate Anesthetic Complications: no major complications apparent and Pt Satisfied with anesthetic care
--- NOTE | 2024-11-23 23:57 | History & Physical Report ---
Date of Service November 23, 2024 Assessment & Plan (1) Septic shock: (2) Urinary tract infection: (3) Ureteral stent present: Plan: 84-year-old female with history of hydronephrosis secondary to nephrolithiasis, ureteral stent placement last September 2024, other problems noted below presenting with weakness, lower abdominal pain. Septic shock Recurrent UTI Ureteral stent in place secondary to hydronephrosis secondary to nephrolithiasis Lactic acid normal Follow-up urine and blood cultures For ureteral stent exchange/removal this evening Cefepime IV IV NSS Acute kidney injury With acidosis Creatinine 2.3, baseline 0.87 Bicarb 12 VBG pH 7.19 Bicarb drip started Nephrology service consultation Prostatic right knee joint periprosthetic fracture Status post ORIF at [facility] 10/14/2024 Right lower extremity flatfoot weightbearing per Ortho Will need to be on DVT prophylaxis if patient is still not ambulating well 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 Patient underwent ureteral stent placement last September 2024 for hydronephrosis secondary to nephrolithiasis. She has had multiple episodes of UTI since. Early October, the patient was admitted to [facility] for periprosthetic fracture around prosthetic right knee joint status post ORIF at [facility]. She was then discharged to a [facility] facility, advised to resume Lovenox x 3 weeks. During that admission, patient was also treated for a urinary tract infection secondary to Klebsiella. After being discharged from [facility] facility, the patient has been treated for recurrent UTIs. Last urine culture was in November 18, 2024 growing Klebsiella. She was started with antibiotics last night but could not remember which one. Patient presented to the ER for progressive weakness, poor appetite, abdominal discomfort. Patient admitted to the ER with blood pressure systolic 90s. Urinalysis showing signs of UTI Patient given vancomycin plus cefepime. On my exam, patient was seen resting in bed, awake, alert, answering questions appropriately, feels weak but otherwise denies headache, shortness of breath, chest pain. Blood pressure at the time was systolic 99. During the evening, patient's blood pressure was noted to be systolic 60s to 70s. Levophed started, transferred to ICU, urologist message for emergent removal/exchange of stent. Dr. Fitzgerald agreed to perform the procedure this evening. Primary Care Provider: Indu Ambrocio Allergies Allergy/AdvReac Type Severity Reaction Status Date / Time influenza virus vaccine, Allergy Severe Gillean Verified 10/11/24 10:26 specific Frakes Syndrome Sulfa (Sulfonamide Allergy Unknown Unknown Verified 10/11/24 10:26 Antibiotics) cephalexin AdvReac Mild Nausea Verified 10/11/24 10:26 Home Medications Medication Instructions Recorded Confirmed Type ferrous sulfate 325 mg (65 mg 325 mg PO 3XWK 07/17/18 11/23/24 History iron) tablet (iron) raloxifene 60 mg tablet 60 mg PO QAM 01/20/20 11/23/24 History cyanocobalamin (vitamin B-12) 500 500 mcg PO QAM 12/20/20 11/23/24 History mcg tablet (Vitamin B-12) cranberry extract 500 mg capsule 0 mg PO QAM 05/08/21 11/23/24 History (Cranberry Concentrate) potassium chloride 10 mEq 20 meq PO TID 04/09/22 11/23/24 History tablet,extended release acetaminophen 500 mg tablet 1,000 mg PO Q8 PRN Pain 02/05/24 11/23/24 History cholecalciferol (vitamin D3) 125 125 mcg PO WK 09/27/24 11/23/24 History mcg (5,000 unit) tablet (Vitamin D3) diphenhydramine 25 2 tab PO HS 09/27/24 11/23/24 History mg-acetaminophen 500 mg tablet (Tylenol PM Extra Strength) Past Med/Surg History Problem List (Updated 11/24/24 @ 00:12 by Angelo Sherman MD) Septic shock Ureteral stent present (Acute) Urinary tract infection (Acute) Sepsis (Acute) Dry heaves Periprosthetic fracture around internal prosthetic right knee joint Fracture of distal end of femur (Acute) Medical History History of colitis Neuropathy involving both lower extremities Hydronephrosis concurrent with and due to calculi of kidney and ureter History of seizure Single episode s/p benign brain tumor excision (1998) No issues since History of right breast cancer (2000) s/p radiation Kidney stones Anemia 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 Osteoarthritis 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 Surgical History Hx of lithotripsy (01/18/21) S/P cystoscopy with ureteral stent placement Multiple History of tooth extraction History of colonoscopy History of appendectomy History of total knee replacement 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) History of hip surgery right and left due to falling History of brain surgery (1998) 1998; benign tumor excision Hx of hysterectomy Hx of lumpectomy Right breast- had xrt Family History Mother Macular degeneration Father Kidney stone Diabetes Social History Smoking Status: Never smoker Tobacco Type: Declines Second Hand Exposure: No; Do You Dip or Chew Tobacco: No; Hx Alcohol Use: No Hx Substance Use: No Preferred Language: Bulgarian Communication Ability: Effective Visual Impairment: No Limitations Client Manager Required: No Beliefs That Will Affect Care: None marital status: / Current Living Situation: Alone Current Living Situation Comment: son Feels Safe at Home: Yes Assistive Devices: Denture - Upper, Denture - Lower, Glasses and Hearing Aid - Bilateral Review of Systems Review of Systems: all noted and negative except for above Physical Exam Physical Exam: General- oriented x 3, not in distress, speaks in sentences with no effort or accessory muscle use weak Head- atraumatic Eyes- PERRL, EOMI, anicteric ENT- oropharynx clear Neck- supple, no JVD, no adenopathy, no thyromegaly; carotids +2/2, no bruits appreciated Lungs- clear to auscultation bilaterally, no rales/wheezes Heart- normal rate, regular rhythm; no murmur, no gallop, no rub appreciated Abdomen- normal bowel sounds, nondistended, soft, nontender, no masses or hepatosplenomegaly no CVA tenderness Extremities- no pretibial edema, no calf tenderness; peripheral pulses intact Neuro- alert, oriented x 3; CN 2-12 grossly intact; motor 5/5 bilaterally;sensation 100% on all extremities; no other gross focal neurologic deficits Skin- warm & dry Results & Data Results & Data Vital Signs (Past 12 Hours) Vital Signs Temp Pulse Pulse Resp BP BP Pulse Ox 11/23/24 23:47 69 13 79/44 L 100 11/23/24 23:37 36 C L 69 13 97/51 L 95 11/23/24 22:37 130/93 11/23/24 21:56 16 94/46 L 99 11/23/24 21:50 93/48 L 11/23/24 21:50 93/48 L 11/23/24 21:46 73/51 L 11/23/24 21:46 73/51 L 11/23/24 21:45 144 H 11 L 100 11/23/24 21:40 79/39 L 11/23/24 21:39 1 L 100 11/23/24 21:21 12 99 11/23/24 21:20 69/35 L 11/23/24 21:10 72/34 L 11/23/24 21:09 147 H 12 98 11/23/24 21:03 76 13 99 11/23/24 21:00 76/54 L 11/23/24 21:00 76/54 L 11/23/24 21:00 76/54 L 11/23/24 20:52 84/41 L 11/23/24 20:51 176 H 24 100 11/23/24 20:48 134 H 28 H 99 11/23/24 20:48 66/36 L 11/23/24 20:48 66/36 L 11/23/24 20:48 66/36 L 11/23/24 20:45 156 H 12 97 11/23/24 20:45 63/39 L 11/23/24 20:45 63/39 L 11/23/24 20:42 150 H 12 97 11/23/24 20:30 76/44 L 11/23/24 20:24 151 H 16 88 L 11/23/24 20:15 82/63 L 11/23/24 20:04 92 11/23/24 20:03 85 16 92/59 L 93 11/23/24 20:00 95 H 22 99 11/23/24 20:00 92/59 L 11/23/24 20:00 92/59 L 11/23/24 19:46 81/61 L 11/23/24 19:46 81/61 L 11/23/24 19:46 81/61 L 11/23/24 19:41 16 90/63 L 99 11/23/24 19:39 140 H 15 100 11/23/24 19:39 90/63 L 11/23/24 19:39 90/63 L 11/23/24 19:30 73/49 L 11/23/24 19:30 73/49 L 11/23/24 19:22 85 11/23/24 19:18 87 22 99 11/23/24 19:17 84/54 L 11/23/24 19:17 84/54 L 11/23/24 19:06 39 L 10 L 99 11/23/24 19:03 69 15 99 11/23/24 19:00 86/61 L 11/23/24 18:53 85/58 L 11/23/24 18:53 85/58 L 11/23/24 18:48 73 9 L 98 11/23/24 18:45 91/60 L 11/23/24 18:45 91/60 L 11/23/24 18:45 91/60 L 11/23/24 18:45 91/60 L 11/23/24 18:42 71 17 99 11/23/24 18:31 99/54 L 11/23/24 18:30 89 14 82 L 11/23/24 18:15 91/63 L 11/23/24 18:12 80 12 11/23/24 18:03 76 11 L 11/23/24 18:00 65 15 84/54 L 99 11/23/24 17:56 63 20 99 11/23/24 17:45 63 15 97/58 L 99 11/23/24 17:14 72 16 89/61 L 99 11/23/24 17:03 73 15 68/48 L 97 11/23/24 16:30 77 16 79/48 L 97 11/23/24 16:15 87 14 85/55 L 98 11/23/24 16:06 96 11/23/24 15:26 101 H 11/23/24 15:19 36.9 C 103 H 20 84/48 L 98 O2 Del Method O2 Flow Rate 11/23/24 23:47 Oxymask 5 11/23/24 23:37 Oxymask 8 11/23/24 22:37 11/23/24 21:56 Room Air 11/23/24 21:50 11/23/24 21:50 11/23/24 21:46 11/23/24 21:46 11/23/24 21:45 11/23/24 21:40 11/23/24 21:39 11/23/24 21:21 11/23/24 21:20 11/23/24 21:10 11/23/24 21:09 11/23/24 21:03 11/23/24 21:00 11/23/24 21:00 11/23/24 21:00 11/23/24 20:52 11/23/24 20:51 11/23/24 20:48 11/23/24 20:48 11/23/24 20:48 11/23/24 20:48 11/23/24 20:45 11/23/24 20:45 11/23/24 20:45 11/23/24 20:42 11/23/24 20:30 11/23/24 20:24 11/23/24 20:15 11/23/24 20:04 Room Air 11/23/24 20:03 Room Air 11/23/24 20:00 11/23/24 20:00 11/23/24 20:00 11/23/24 19:46 11/23/24 19:46 11/23/24 19:46 11/23/24 19:41 Room Air 11/23/24 19:39 11/23/24 19:39 11/23/24 19:39 11/23/24 19:30 11/23/24 19:30 11/23/24 19:22 11/23/24 19:18 11/23/24 19:17 11/23/24 19:17 11/23/24 19:06 11/23/24 19:03 11/23/24 19:00 11/23/24 18:53 11/23/24 18:53 11/23/24 18:48 11/23/24 18:45 11/23/24 18:45 11/23/24 18:45 11/23/24 18:45 11/23/24 18:42 11/23/24 18:31 11/23/24 18:30 11/23/24 18:15 11/23/24 18:12 11/23/24 18:03 11/23/24 18:00 Room Air 11/23/24 17:56 Room Air 11/23/24 17:45 Room Air 11/23/24 17:14 Room Air 11/23/24 17:03 Room Air 11/23/24 16:30 Room Air 11/23/24 16:15 Room Air 11/23/24 16:06 Room Air 0 11/23/24 15:26 11/23/24 15:19 Room Air all noted and reviewed including below Code Status & VTE Plan VTE Prophylaxis Plan VTE Prophylaxis will be ordered: Yes
--- NOTE | 2024-11-24 00:19 | Critical Care Consultation ---
Date of Consultation November 23, 2024 Assessment & Plan (1) Septic shock: Reason Critically Ill: 84-year-old female presents to the ICU with septic shock source, status post bilateral ureteral stent exchange with urology. She is currently requiring vasopressor support with Levophed drip Neuro - [facility] ICU: Negative Cardiac - Shock likely septic in etiology, Given that patient has underlying UTI. Currently undergoing treatment with cefepime - Currently on low-dose Levophed. Will consider CVC insertion if vasopressor requirements increase. Titrate for MAP of 65 -Random cortisol pending - Continuous monitoring on telemetry Respiratory - No history of pulmonary disease. Currently maintaining oxygen saturations on 2 L nasal cannula. Wean as tolerated -Continuous pulse ox monitoring GI - N.p.o. for now RENAL/LYTES - Acute renal failuresuspect this is likely due to ATN, given hypotension with sepsis. Patient also has bilateral ureteral stents, however baseline creatinine is around 0.8 currently at 2.1. - Santillan inserted, patient appears to be oliguric at this time. Hopefully ur ine output will increase his renal perfusion. Maintain MAP greater than 65 - Continue with fluid resuscitation - Avoid nephro toxins and renally adjust medications -Monitor electrolytes and replete as indicated. Monitor routine BMPs Nonanion gap metabolic acidosislikely due to Hyperchloremia(Chloride 118), And dehydration. -Currently undergoing infusion with Bicarb drip. She did receive boluses with NSS which may be contributing as well -Lactic acid within normal limits - Monitor with routine VBG's and BMPs - Hydronephrosisimproved on CT imaging. Point underwent bilateral ureteral stent exchange with urology as patient currently septic from urinary source. Currently oliguric. Monitor for urinary output with Santillan catheter ENDO - No history of diabetes or thyroid disease. ICU hyperglycemic protocol HEME - Hemoglobin 8.2hemoglobin from previous admission 8.9-9.0 in September. Continue with ferrous sulfate. Transfuse for hemoglobin less than 7. Monitor routine C BC ID - Sepsislikely due to urinary source. Previous UTIs with Klebsiella. Urine culture and blood cultures currently pending. Procalcitonin elevated at 2 and WBC 13. Continue with cefepime for now LINES/IV ACCESS - Peripheral IVs. Consider CBC if vasopressor requirements increase DVT PROPHYLAXIS - SCDs, hold anticoagulation for now following ureteral stent exchange I have personally spent 46 minutes of critical care time in the direct management of this patient. This is a life/limb threatening event. This includes time spent evaluating patient, direct bedside care, chart review, placing orders, interpretation of diagnostic studies, discussion with consultants, patient, and family members, as well as other required patient management activities. This time is exclusive of all separately billable procedures, and teaching time and separate from and in addition to any other critical care service time. Thank you for allowing us to participate in the care of this patient. Please refer to my attending physician's documentation for any further recommendations. (2) Urinary tract infection: (3) Metabolic acidosis: History of Present Illness Attending Physician: Angelo Sherman MD History of Present Illness 84-year-old female with past medical history significant for [place] Sandra syndrome, breast cancer, hydronephrosis, recurrent UTIs, who presented to the emergency department earlier this evening with complaints of chills. Patient was found to be hypotensive, with concern for sepsis with urinary source. She was given 2 L crystalloid bolus and was started on vasopressor support on Levophed. She recently had ureteral stents placed, and now presents to the ICU after cystoscope he for ureteral stent exchange. Upon exam the patient is alert and oriented without any acute distress. She is on low-dose Levophed drip, and bicarb drip. She denies any headache, dizziness, syncopal events, numbness or tingling or changes in vision, shortness of breath, chest pain or palpitations, abdominal pain, nausea or vomiting, swelling in hands or feet, changes in gait, burning with urination. Patient does report diarrhea which has been ongoing for the past several years since she had [place] Sandra syndrome. She reports that she usually feels weakness and chills when she has UTI symptoms. Patient to remain in ICU for further management at this time. Allergies Allergy/AdvReac Type Severity Reaction Status Date / Time influenza virus vaccine, Allergy Severe Gillean Verified 10/11/24 10:26 specific Weatherly Syndrome Sulfa (Sulfonamide Allergy Unknown Unknown Verified 10/11/24 10:26 Antibiotics) cephalexin AdvReac Mild Nausea Verified 10/11/24 10:26 Home Medications Medication Instructions Recorded Confirmed Type ferrous sulfate 325 mg (65 mg 325 mg PO 3XWK 07/17/18 11/23/24 History iron) tablet (iron) raloxifene 60 mg tablet 60 mg PO QAM 01/20/20 11/23/24 History cyanocobalamin (vitamin B-12) 500 500 mcg PO QAM 12/20/20 11/23/24 History mcg tablet (Vitamin B-12) cranberry extract 500 mg capsule 0 mg PO QAM 05/08/21 11/23/24 History (Cranberry Concentrate) potassium chloride 10 mEq 20 meq PO TID 04/09/22 11/23/24 History tablet,extended release acetaminophen 500 mg tablet 1,000 mg PO Q8 PRN Pain 02/05/24 11/23/24 History cholecalciferol (vitamin D3) 125 125 mcg PO WK 09/27/24 11/23/24 History mcg (5,000 unit) tablet (Vitamin D3) diphenhydramine 25 2 tab PO HS 09/27/24 11/23/24 History mg-acetaminophen 500 mg tablet (Tylenol PM Extra Strength) Patient History Medical History History of colitis Neuropathy involving both lower extremities Hydronephrosis concurrent with and due to calculi of kidney and ureter History of seizure Single episode s/p benign brain tumor excision (1998) No issues since History of right breast cancer (2000) s/p radiation Kidney stones Anemia 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 (1998) Mild residual LE neuropathy Osteoarthritis 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 Surgical History Hx of lithotripsy (01/18/21) S/P cystoscopy with ureteral stent placement Multiple History of tooth extraction History of colonoscopy History of appendectomy History of total knee replacement R/L (2020) History of hip surgery right and left due to falling History of brain surgery (1998) 1998; benign tumor excision Hx of hysterectomy Hx of lumpectomy Right breast- had xrt Family History Mother Macular degeneration Father Kidney stone Diabetes Social History Smoking Status: Never smoker Tobacco Type: Declines Second Hand Exposure: No; Do You Dip or Chew Tobacco: No; Hx Alcohol Use: No Hx Substance Use: No Preferred Language: Maltese Communication Ability: Effective Visual Impairment: No Limitations Enrichment Assistant Required: No Beliefs That Will Affect Care: None marital status: / Current Living Situation: Alone Current Living Situation Comment: son Feels Safe at Home: Yes Assistive Devices: Walker Review of Systems Review of Systems: All systems reviewed & are unremarkable except as noted in HPI & below Physical Exam Constitutional: cooperative and comfortable; no acute distress Eyes: PERRL, conjunctivae normal, anicteric sclerae ENMT: external ear and nose normal, oropharynx normal Neck: trachea midline, no thyromegaly Respiratory: normal respiratory effort, lungs clear to auscultation Cardiovascular: RRR, no murmur, no edema Heart Sounds: normal S1 and normal S2; no murmur Extremities: no edema Gastrointestinal (Abdomen): normal bowel sounds, soft, nontender, no hepatosplenomegaly Musculoskeletal: no cyanosis or clubbing, extremities motor strength 5/5 Skin: no rashes, warm and dry Neurologic: PERRL, EOMI, accommodation nl, no face palsy, no dysarthria Psychiatric: A+Ox3, euthymic affect Genitourinary: Indwelling Santillan catheter. Urine dark and concentrated with hematuria Results & Data Results & Data Vital Signs (Past 12 Hours) Vital Signs Temp Pulse Pulse Resp BP BP Pulse Ox 11/23/24 23:57 36 C L 60 13 102/49 L 100 11/23/24 23:47 69 13 79/44 L 100 11/23/24 23:37 36 C L 69 13 97/51 L 95 11/23/24 22:37 130/93 11/23/24 21:56 16 94/46 L 99 11/23/24 21:50 93/48 L 11/23/24 21:50 93/48 L 11/23/24 21:46 73/51 L 11/23/24 21:46 73/51 L 11/23/24 21:45 144 H 11 L 100 11/23/24 21:40 79/39 L 11/23/24 21:39 1 L 100 11/23/24 21:21 12 99 11/23/24 21:20 69/35 L 11/23/24 21:10 72/34 L 11/23/24 21:09 147 H 12 98 11/23/24 21:03 76 13 99 11/23/24 21:00 76/54 L 11/23/24 21:00 76/54 L 11/23/24 21:00 76/54 L 11/23/24 20:52 84/41 L 11/23/24 20:51 176 H 24 100 11/23/24 20:48 134 H 28 H 99 11/23/24 20:48 66/36 L 11/23/24 20:48 66/36 L 11/23/24 20:48 66/36 L 11/23/24 20:45 156 H 12 97 11/23/24 20:45 63/39 L 11/23/24 20:45 63/39 L 11/23/24 20:42 150 H 12 97 11/23/24 20:30 76/44 L 11/23/24 20:24 151 H 16 88 L 11/23/24 20:15 82/63 L 11/23/24 20:04 92 11/23/24 20:03 85 16 92/59 L 93 11/23/24 20:00 95 H 22 99 11/23/24 20:00 92/59 L 11/23/24 20:00 92/59 L 11/23/24 19:46 81/61 L 11/23/24 19:46 81/61 L 11/23/24 19:46 81/61 L 11/23/24 19:41 16 90/63 L 99 11/23/24 19:39 140 H 15 100 11/23/24 19:39 90/63 L 11/23/24 19:39 90/63 L 11/23/24 19:30 73/49 L 11/23/24 19:30 73/49 L 11/23/24 19:22 85 11/23/24 19:18 87 22 99 11/23/24 19:17 84/54 L 11/23/24 19:17 84/54 L 11/23/24 19:06 39 L 10 L 99 11/23/24 19:03 69 15 99 11/23/24 19:00 86/61 L 11/23/24 18:53 85/58 L 11/23/24 18:53 85/58 L 11/23/24 18:48 73 9 L 98 11/23/24 18:45 91/60 L 11/23/24 18:45 91/60 L 11/23/24 18:45 91/60 L 11/23/24 18:45 91/60 L 11/23/24 18:42 71 17 99 11/23/24 18:31 99/54 L 11/23/24 18:30 89 14 82 L 11/23/24 18:15 91/63 L 11/23/24 18:12 80 12 11/23/24 18:03 76 11 L 11/23/24 18:00 65 15 84/54 L 99 11/23/24 17:56 63 20 99 11/23/24 17:45 63 15 97/58 L 99 11/23/24 17:14 72 16 89/61 L 99 11/23/24 17:03 73 15 68/48 L 97 11/23/24 16:30 77 16 79/48 L 97 11/23/24 16:15 87 14 85/55 L 98 11/23/24 16:06 96 11/23/24 15:26 101 H 11/23/24 15:19 36.9 C 103 H 20 84/48 L 98 O2 Del Method O2 Flow Rate 11/23/24 23:57 Oxymask 3 11/23/24 23:47 Oxymask 5 11/23/24 23:37 Oxymask 8 11/23/24 22:37 11/23/24 21:56 Room Air 11/23/24 21:50 11/23/24 21:50 11/23/24 21:46 11/23/24 21:46 11/23/24 21:45 11/23/24 21:40 11/23/24 21:39 11/23/24 21:21 11/23/24 21:20 11/23/24 21:10 11/23/24 21:09 11/23/24 21:03 11/23/24 21:00 11/23/24 21:00 11/23/24 21:00 11/23/24 20:52 11/23/24 20:51 11/23/24 20:48 11/23/24 20:48 11/23/24 20:48 11/23/24 20:48 11/23/24 20:45 11/23/24 20:45 11/23/24 20:45 11/23/24 20:42 11/23/24 20:30 11/23/24 20:24 11/23/24 20:15 11/23/24 20:04 Room Air 11/23/24 20:03 Room Air 11/23/24 20:00 11/23/24 20:00 11/23/24 20:00 11/23/24 19:46 11/23/24 19:46 11/23/24 19:46 11/23/24 19:41 Room Air 11/23/24 19:39 11/23/24 19:39 11/23/24 19:39 11/23/24 19:30 11/23/24 19:30 11/23/24 19:22 11/23/24 19:18 11/23/24 19:17 11/23/24 19:17 11/23/24 19:06 11/23/24 19:03 11/23/24 19:00 11/23/24 18:53 11/23/24 18:53 11/23/24 18:48 11/23/24 18:45 11/23/24 18:45 11/23/24 18:45 11/23/24 18:45 11/23/24 18:42 11/23/24 18:31 11/23/24 18:30 11/23/24 18:15 11/23/24 18:12 11/23/24 18:03 11/23/24 18:00 Room Air 11/23/24 17:56 Room Air 11/23/24 17:45 Room Air 11/23/24 17:14 Room Air 11/23/24 17:03 Room Air 11/23/24 16:30 Room Air 11/23/24 16:15 Room Air 11/23/24 16:06 Room Air 0 11/23/24 15:26 11/23/24 15:19 Room Air Coding Level of Care Code 41352 CRITICAL CARE 1ST 30-74M Diagnoses Septic shock A41.9; R65.21 Urinary tract infection N39.0 Metabolic acidosis E87.20
[2024-11-24] MEDS: POTASSIUM CHLORIDE / WTR 10 MEQ/100 ML PLCT IV ONE (00:34)
[2024-11-24] MEDS: SODIUM BICARB 8.4% INJ 50 MEQ/50 ML SYR IV STA (00:34)
[2024-11-24] MEDS: CEFEPIME 1000MG 1,000 MG/10 ML SYR IV SCH (04:14)
[2024-11-24 04:51] LABS: Basophils # (auto) 0.03 K/uL (0.00-0.20); Basophils % (auto) 0.3 %; Eosinophils # (auto) 0.08 K/uL (0.00-0.50); Eosinophils % (auto) 0.8 %; Hematocrit (blood only) 27.2 % (37.0-47.0); Hemoglobin 8.7 g/dl (12.0-16.0); Immature Granulocytes # (auto) 0.13 K/uL (0.01-0.20); Immature Granulocytes % (auto) 1.3 %; Lymphocytes # (auto) 0.55 K/uL (1.20-3.40); Lymphocytes % (auto) 5.4 %; Mean Corpuscular Hemoglobin 30.2 pg (25.0-34.0); Mean Corpuscular Volume 94.4 fL (80.0-100.0); Mean Platelet Volume 9.5 fL (9.4-12.4); Monocytes # (auto) 0.69 K/uL (0.11-0.59); Monocytes % (auto) 6.8 %; Neutrophils # (auto) 8.69 K/uL (1.40-6.50); Neutrophils % (auto) 85.4 %; Platelet Count 286 K/uL (130-400); RDW Coefficient of Variation 15.7 % (11.5-14.5); RDW Standard Deviation 54.6 fL (36.4-46.3); Red Blood Count 2.88 M/uL (4.20-5.40); White Blood Count 10.17 K/ul (4.8-10.8)
[2024-11-24 04:54] LABS: Base Excess VBG -10.3 mEq/L; HCO3 VBG 16 mmol/L; Oxygen Saturation VBG < 60.0 %; PCO2 VBG 34 mmHg (38-50); PO2 VBG 27 mmHg; pH VBG 7.27 (7.36-7.41)
[2024-11-24 05:07] LABS: BUN Creatinine Ratio 15.4 (10-20); Calcium 7.2 mg/dl (8.6-10.3); Creatinine Clr Calc Pharmacy 18.4 ml/min; Potassium 3.3 mmol/L (3.5-5.1)
[2024-11-24] MEDS ORDERED: STAT IV/IM STA (05:46)
[2024-11-24] MEDS: POTASSIUM CHLORIDE / WTR 10 MEQ/100 ML PLCT IV SCH (06:18)
[2024-11-24] MEDS ORDERED: SODIUM BICARBONATE 8.4% 150 MEQ in DEXTROSE 5% 1,000 ML IV SCH (06:30)
--- NOTE | 2024-11-24 07:53 | Fluoroscopy Report ---
[facility] CLINICAL HISTORY: B/L STENT EXCHANGE COMPARISON STUDY: CT of the abdomen and pelvis November 23, 2024. FLUOROSCOPY TIME: 13 seconds. Ka,r: 2.04 mGy FLUOROSCOPIC IMAGES: 2 FINDINGS: Fluoroscopy was provided during bilateral ureteral stent exchange. IMPRESSION: Fluoroscopy provided during bilateral ureteral stent exchange. ACT 112: Negative or not required by law. Electronically signed by: Redd Salcido M.D. 11/24/2024 7:52 AM
[2024-11-24] MEDS ORDERED: POTASSIUM CHLORIDE CRTAB 20 MEQ TABCR PO SCH (09:00)
--- NOTE | 2024-11-24 09:01 | Critical Care Progress Note ---
Date of Service November 24, 2024 Assessment & Plan (1) Septic shock: (2) Urinary tract infection: (3) Metabolic acidosis: (4) AMLINA (acute kidney injury): (5) History of seizure: (6) History of right breast cancer: (7) Kidney stones: Plan Reason Critically Ill: 84-year-old female presents to the ICU with septic shock source, status post bilateral ureteral stent exchange with urology. She is currently requiring vasopressor support with Levophed drip Neuro - [facility] ICU: Negative Cardiac - Shock likely septic in etiology, Given that patient has underlying UTI. Currently undergoing treatment with cefepime -Continue with vasopressor support to keep MAP greater than 65 -Random cortisol 14.22, which is on the lower side. If the patient blood pressure does not improve with Levophed then hydrocortisone will be thought of - Continuous monitoring on telemetry Respiratory - No history of pulmonary disease. -Continuous pulse ox monitoring GI - N.p.o. for now RENAL/LYTES - Acute kidney injurysuspect this is likely due to ATN, given hypotension with sepsis. Baseline creatinine 0.8 - Avoid nephro toxins and renally adjust medications Nonanion gap metabolic acidosislikely due to Hyperchloremia(Chloride 118), And dehydration. -Status post bicarb drip -Lactic acid within normal limits - Hydronephrosisimproved on CT imaging. Underwent bilateral ureteral stent exchange with urology on 11/23/2024. Monitor for urinary output with Santillan catheter ENDO - -- ICU hypoglycemia protocol HEME - Hemoglobin 8.2 Hemoglobin from previous admission 8.9-9.0 in September. Continue with ferrous sulfate Monitor H&H ID - Sepsislikely due to urinary source. Previous UTIs with pansensitive Klebsiella Procalcitonin 2.2 Continue with cefepime --Prophylaxis VTE: IPC GI: None Lines: Peripheral Diet: N.p.o. Plan: In/out: +4 L, urine output 575 Try to titrate off Levophed if possible while keeping the MAP greater than 65 Potassium to be replaced Start the patient on clear liquid diet and advance as tolerated I have personally spent 38 minutes of critical care time in the direct management of this patient. This is a life/limb threatening event. This includes time spent evaluating patient, direct bedside care, chart review, placing orders, interpretation of diagnostic studies, discussion with consultants, patient, and family members, as well as other required patient management activities. This time is exclusive of all separately billable procedures, and teaching time and separate from and in addition to any other critical care service time. Thank you for allowing us to participate in the care of this patient. Please refer to my attending physician's documentation for any further recommendations. Admission and Anticipated Discharge Date Admission Date: November 23, 2024 Subjective Patient seen and examined at bedside. No acute distress, no adverse events overnight She was on Levophed 0.05 at time of examination MAP was in the mid to high 60s. Denies any abdominal pain, no chest pain No shortness of breath Was asking if she could eat something No nausea vomiting Review of Systems 2 Review of Systems: All systems reviewed & are unremarkable except as noted in Subjective Physical Exam 2 Physical Exam: Constitutional: No acute distress HEENT: EOMI, PERRLA, hard to hear Respiratory system: Good air entry bilaterally, no wheeze, no rhonchi, mild crackles bilateral lower lobes CVS: S1-S2 positive, no murmurs or gallops Abdomen: Soft, nontender, nondistended, positive bowel sounds x4 Extremities: +2 pulses bilaterally radialis/ dorsalis pedis, no cyanosis, minimal pitting edema bilateral lower extremity Neuro: Awake alert oriented x3 Psych: Normal mood and affect G/U: Positive Santillan Skin: no rashes, warm and dry Lymphatic: no cervical or axillary lymphadenopathy Results & Data Results & Data Vital Signs (Past 12 Hours) Vital Signs Temp Pulse Pulse Resp BP BP Pulse Ox 11/24/24 06:15 76 14 102/42 L 98 11/24/24 06:00 70 14 103/46 L 98 11/24/24 05:45 80 16 106/47 L 97 11/24/24 05:30 73 15 84/40 L 98 11/24/24 05:15 72 13 98/38 L 98 11/24/24 05:00 67 19 90/40 L 99 11/24/24 04:45 67 15 94/39 L 100 11/24/24 04:30 73 16 93/48 L 100 11/24/24 04:15 74 15 111/63 100 11/24/24 03:30 70 13 100/45 L 100 11/24/24 03:15 70 15 104/51 L 100 11/24/24 03:00 70 14 103/50 L 100 11/24/24 02:45 72 14 113/49 L 100 11/24/24 02:30 71 16 95/53 L 100 11/24/24 02:15 78 16 107/49 L 100 11/24/24 02:01 68 20 90/52 L 98 11/24/24 01:45 68 14 108/50 L 100 11/24/24 01:15 72 14 124/57 L 100 11/24/24 01:00 69 15 105/51 L 100 11/24/24 00:00 67 11/24/24 00:00 11/24/24 00:00 63 12 104/49 L 100 11/23/24 23:57 36 C L 60 13 102/49 L 100 11/23/24 23:47 69 13 79/44 L 100 11/23/24 23:37 36 C L 69 13 97/51 L 95 11/23/24 22:37 130/93 11/23/24 21:56 16 94/46 L 99 11/23/24 21:50 93/48 L 11/23/24 21:50 93/48 L 11/23/24 21:46 73/51 L 11/23/24 21:46 73/51 L 11/23/24 21:45 144 H 11 L 100 11/23/24 21:40 79/39 L 11/23/24 21:39 1 L 100 11/23/24 21:21 12 99 11/23/24 21:20 69/35 L 11/23/24 21:10 72/34 L 11/23/24 21:09 147 H 12 98 11/23/24 21:03 76 13 99 11/23/24 21:00 76/54 L 11/23/24 21:00 76/54 L 11/23/24 21:00 76/54 L O2 Del Method O2 Flow Rate 11/24/24 06:15 Room Air 11/24/24 06:00 Room Air 11/24/24 05:45 Room Air 11/24/24 05:30 Room Air 11/24/24 05:15 Room Air 11/24/24 05:00 Room Air 11/24/24 04:45 Nasal Cannula 2 11/24/24 04:30 Nasal Cannula 2 11/24/24 04:15 Nasal Cannula 2 11/24/24 03:30 Nasal Cannula 2 11/24/24 03:15 Nasal Cannula 2 11/24/24 03:00 Nasal Cannula 2 11/24/24 02:45 Nasal Cannula 2 11/24/24 02:30 Nasal Cannula 2 11/24/24 02:15 Nasal Cannula 2 11/24/24 02:01 Nasal Cannula 2 11/24/24 01:45 Nasal Cannula 2 11/24/24 01:15 Nasal Cannula 2 11/24/24 01:00 Oxymask 8 11/24/24 00:00 11/24/24 00:00 Nasal Cannula, Oxymask 8 11/24/24 00:00 Nasal Cannula 2 11/23/24 23:57 Oxymask 3 11/23/24 23:47 Oxymask 5 11/23/24 23:37 Oxymask 8 11/23/24 22:37 11/23/24 21:56 Room Air 11/23/24 21:50 11/23/24 21:50 11/23/24 21:46 11/23/24 21:46 11/23/24 21:45 11/23/24 21:40 11/23/24 21:39 11/23/24 21:21 11/23/24 21:20 11/23/24 21:10 11/23/24 21:09 11/23/24 21:03 11/23/24 21:00 11/23/24 21:00 11/23/24 21:00 Laboratory Results 11/24/24 04:39 11/24/24 04:39 Coding Level of Care Code 17804 CRITICAL CARE 1ST 30-74M Diagnoses Septic shock A41.9; R65.21 Urinary tract infection N39.0 Metabolic acidosis E87.20 MALINA (acute kidney injury) N17.9 History of seizure Z87.898 History of right breast cancer Z85.3 Kidney stones N20.0
--- NOTE | 2024-11-24 10:36 | Urology Progress Note ---
Date of Service November 24, 2024 Assessment & Plan (1) MALINA (acute kidney injury): (2) Ureteral stent present: (3) Sepsis: Plan Should have appropriate source control for urinary tract with fresh bilateral stents and Santillan catheter in place Continue broad-spectrum antibiotics, narrow coverage as culture data becomes available No plan for additional surgical intervention at this time, the remainder of her stones can be treated as an outpatient. Would maintain catheter until she is out of the ICU, off pressors Urology will follow along Admission and Anticipated Discharge Date Admission Date: November 23, 2024 Subjective Feeling okay this morning No significant bother from stents Santillan catheter draining well, slightly cloudy urine WBC down to 10.1 today. Creatinine improved to 1.88 Urine and blood cultures pending, receiving cefepime Still on pressors for blood pressure support Physical Exam Physical Exam: Laying comfortably in bed, NAD Santillan catheter draining slightly cloudy urine Results & Data Vital Signs (Past 12 Hours) Vital Signs Temp Pulse Pulse Resp BP BP Pulse Ox 11/24/24 10:24 84 12 98 11/24/24 10:15 100/45 L 11/24/24 10:00 112/58 L 11/24/24 09:54 85 0 L 98 11/24/24 09:05 79 11/24/24 09:00 85 15 97 11/24/24 08:45 104/49 L 11/24/24 08:30 83 12 96/51 L 98 11/24/24 08:15 104/50 L 11/24/24 08:00 11/24/24 08:00 85 11 L 93/46 L 98 11/24/24 07:45 84 14 112/52 L 99 11/24/24 07:06 82 15 99 11/24/24 06:45 104/47 L 11/24/24 06:15 76 14 102/42 L 98 11/24/24 06:00 70 14 103/46 L 98 11/24/24 05:45 80 16 106/47 L 97 11/24/24 05:30 73 15 84/40 L 98 11/24/24 05:15 72 13 98/38 L 98 11/24/24 05:00 67 19 90/40 L 99 11/24/24 04:45 67 15 94/39 L 100 11/24/24 04:30 73 16 93/48 L 100 11/24/24 04:15 74 15 111/63 100 11/24/24 03:30 70 13 100/45 L 100 11/24/24 03:15 70 15 104/51 L 100 11/24/24 03:00 70 14 103/50 L 100 11/24/24 02:45 72 14 113/49 L 100 11/24/24 02:30 71 16 95/53 L 100 11/24/24 02:15 78 16 107/49 L 100 11/24/24 02:01 68 20 90/52 L 98 11/24/24 01:45 68 14 108/50 L 100 11/24/24 01:15 72 14 124/57 L 100 11/24/24 01:00 69 15 105/51 L 100 11/24/24 00:00 67 11/24/24 00:00 11/24/24 00:00 63 12 104/49 L 100 11/23/24 23:57 36 C L 60 13 102/49 L 100 11/23/24 23:47 69 13 79/44 L 100 11/23/24 23:37 36 C L 69 13 97/51 L 95 11/23/24 22:37 130/93 O2 Del Method O2 Flow Rate 11/24/24 10:24 11/24/24 10:15 11/24/24 10:00 11/24/24 09:54 11/24/24 09:05 11/24/24 09:00 11/24/24 08:45 11/24/24 08:30 11/24/24 08:15 11/24/24 08:00 Room Air 11/24/24 08:00 11/24/24 07:45 Room Air 11/24/24 07:06 11/24/24 06:45 11/24/24 06:15 Room Air 11/24/24 06:00 Room Air 11/24/24 05:45 Room Air 11/24/24 05:30 Room Air 11/24/24 05:15 Room Air 11/24/24 05:00 Room Air 11/24/24 04:45 Nasal Cannula 2 11/24/24 04:30 Nasal Cannula 2 11/24/24 04:15 Nasal Cannula 2 11/24/24 03:30 Nasal Cannula 2 11/24/24 03:15 Nasal Cannula 2 11/24/24 03:00 Nasal Cannula 2 11/24/24 02:45 Nasal Cannula 2 11/24/24 02:30 Nasal Cannula 2 11/24/24 02:15 Nasal Cannula 2 11/24/24 02:01 Nasal Cannula 2 11/24/24 01:45 Nasal Cannula 2 11/24/24 01:15 Nasal Cannula 2 11/24/24 01:00 Oxymask 8 11/24/24 00:00 11/24/24 00:00 Nasal Cannula, Oxymask 8 11/24/24 00:00 Nasal Cannula 2 11/23/24 23:57 Oxymask 3 11/23/24 23:47 Oxymask 5 11/23/24 23:37 Oxymask 8 11/23/24 22:37 PG Care Time/CCT Total # of Minutes Spent Total Time Spent with Patient: Total time spent is greater than 50% in coordination of care (as documented) at patient's floor/unit and/or counseling patient: Coding Level of Care Code 54735 SUB INP/OBS CARE 12/18MIN Diagnoses MALINA (acute kidney injury) N17.9 Ureteral stent present Z96.0 Sepsis A41.9
[2024-11-24] MEDS: SODIUM BICARBONATE 8.4% 150 MEQ in WATER, STERILE 1,000 ML IV SCH (10:49)
[2024-11-24] MEDS: CYANOCOBALAMIN (B-12) 500 MCG TABLET PO SCH (11:28)
[2024-11-24] MEDS: FERROUS SULFATE 325 MG TAB PO SCH (11:28)
[2024-11-24] MEDS: ACETAMINOPHEN 325 MG TAB PO PRN (12:59)
--- NOTE | 2024-11-24 13:48 | Hospitalist Progress Note ---
Date of Service November 24, 2024 Assessment & Plan (1) Septic shock: (2) Urinary tract infection: (3) Ureteral stent present: Plan: 84-year-old female with history of hydronephrosis secondary to nephrolithiasis, ureteral stent placement last September 2024, other problems noted below presenting with weakness, lower abdominal pain. Septic shock Recurrent UTI Ureteral stent in place secondary to hydronephrosis secondary to nephrolithiasis Status post cystoscopy and bilateral retrograde and bilateral ureteral stent exchange on 11/23/2024 History of nephrolithiasis with bilateral stent placement. Patient presented with septic shock requiring ICU admission for vasopressors Urine culture and blood culture are pending Continue empiric antibiotic Continue vasopressors Acute kidney injury Creatinine 2.3, baseline 0.87, Bicarb 12 ( on admission) Creatinine improved with IV hydration Continue hemodynamic support and IV fluid Prostatic right knee joint periprosthetic fracture Status post ORIF at 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 It may contain grammatical, syntax or spelling errors. Any formal questions or concerns about the content, text or information contained within the body of this dictation should be directly addressed to the provider for clarification Admission and Anticipated Discharge Date Admission Date: November 23, 2024 Subjective Patient seen and examined at bedside. She is tired but awake able by voice; not in any distress Continues to require Levophed Review of Systems Review of Systems: All systems reviewed & are unremarkable except as noted in Subjective Physical Exam Physical Exam: Constitutional: Alert oriented x 3; not in distress. Respiratory: bilateral vesicular breath sound Cardiovascular: RRR, no murmur, no edema Vessels: no JVD or carotid bruit Chest: normal inspection of chest Abdomen: Soft, nontender. Musculoskeletal: no cyanosis or clubbing, extremities motor strength 5/5 Skin: no rashes, warm and dry normal turgor Neurologic: PERRL, EOMI, accommodation nl, no face palsy, no dysarthria CN's II- XI intact bilaterally and moves all extremities Psychiatric: A+Ox3, euthymic affect Results & Data Results & Data Vital Signs (Past 12 Hours) Vital Signs Pulse Resp BP Pulse Ox O2 Del Method O2 Flow Rate 11/24/24 10:24 84 12 98 11/24/24 10:15 100/45 L 11/24/24 10:00 112/58 L 11/24/24 09:54 85 0 L 98 11/24/24 09:05 79 11/24/24 09:00 85 15 97 11/24/24 08:45 104/49 L 11/24/24 08:30 83 12 96/51 L 98 11/24/24 08:15 104/50 L 11/24/24 08:00 Room Air 11/24/24 08:00 85 11 L 93/46 L 98 11/24/24 07:45 84 14 112/52 L 99 Room Air 11/24/24 07:06 82 15 99 11/24/24 06:45 104/47 L 11/24/24 06:15 76 14 102/42 L 98 Room Air 11/24/24 06:00 70 14 103/46 L 98 Room Air 11/24/24 05:45 80 16 106/47 L 97 Room Air 11/24/24 05:30 73 15 84/40 L 98 Room Air 11/24/24 05:15 72 13 98/38 L 98 Room Air 11/24/24 05:00 67 19 90/40 L 99 Room Air 11/24/24 04:45 67 15 94/39 L 100 Nasal Cannula 2 11/24/24 04:30 73 16 93/48 L 100 Nasal Cannula 2 11/24/24 04:15 74 15 111/63 100 Nasal Cannula 2 11/24/24 03:30 70 13 100/45 L 100 Nasal Cannula 2 11/24/24 03:15 70 15 104/51 L 100 Nasal Cannula 2 11/24/24 03:00 70 14 103/50 L 100 Nasal Cannula 2 11/24/24 02:45 72 14 113/49 L 100 Nasal Cannula 2 11/24/24 02:30 71 16 95/53 L 100 Nasal Cannula 2 11/24/24 02:15 78 16 107/49 L 100 Nasal Cannula 2 11/24/24 02:01 68 20 90/52 L 98 Nasal Cannula 2
--- NOTE | 2024-11-24 15:45 | Nephrology Consultation ---
Date of Consultation November 24, 2024 Assessment & Plan (1) MALINA (acute kidney injury): nonoliguric stage 2 MALINA improving after stent exchange and w/ tx of sepsis from urinary source. Presenting creatinine 2.3 11/23; baseline creatinine 0.9 as of September 2024; 0.7 as of January 2024. Down to 1.9 today. multiple mild electrolyte abnormalities > hyperchloremic metabolic acidosis and hypokalemia -repeat bmp ordered for this PM > shows K even lower, down to 3 w/ ongoing NAGMA -f/u pending cxs and sensi's > cont vancomycin, cefepime for now -daily bmp >>her low potassium is worsened by bicarb rich fluid; her acidosis is a result of saline administration > changed IV fluids to plasmalyte w/ 40 mEq/L potassium x 1L; she remains on RA w/ clear lungs; believe she will tolerate another liter of crystalloid (2) Septic shock: remains hypotensive and pressor dependent -continue pressors, abtx; judicious IVF -f/u cultures (3) Urinary tract infection: Admission UA w/ inflammation, 2+ bacter, no epis. >f/u cultures History of Present Illness Reason for Consultation: MALINA Requesting Physician: Dr Sherman Attending Physician: Parvez Villarreal MD History of Present Illness 84 y/o F whom I'm asked to see for MALINA was admitted yesterday with septic shock from complicated UTI after presenting with weakness, poor po intake, chills and rigors. Presenting creatinine 2.3; baseline creatinine 0.9 as of September 2024; 0.7 as of January 2024. Presenting SBP in 90s. PMH hydronephrosis secondary to nephrolithiasis s/p ureteral stent September 2024; Also w/ recurrent UTI, including during admission here for R knee periprosthetic fracture early last month when she was treated for Klebsiella UTI and d/c to SNF. She has had recurrent UTIs including 11/18 [facility]/ [facility] Other PMH includes BLE neuropathy d/t h/o Guillain Carbon, also h/o R breast CA and benign brain lesion. She was started on cefepime and vanco last evening in addition to receiving 2.5L NS and also a L of 150 mEq sodium bicarb in 1/2 NS. Her sbp dropped to 60-70s systolic and she was transferred to ICU for pressor support. Last evening she underwent BL stent exchange. Patient underwent ureteral stent placement last September 2024 for hydronephrosis secondary to nephrolithiasis. She has had multiple episodes of UTI since. Currently in ICU receiving norepi at 0.03 mcg and bicarb gtt in sterile water at 125 mL hourly. Creatinine this AM was 1.9; K 3.3; also w/ Cl 117, C02 16. She has made over a L of urine today and is 4L positive on the admission. She is fairly preoccupied at the time of my evaluation > tired and somewhat anxious after multiple procedures, feels somewhat improved. denies abd pain. struggling w/ constipation; tolerating minimal po. no sob, no n/v. Allergies Allergy/AdvReac Type Severity Reaction Status Date / Time influenza virus vaccine, Allergy Severe Gillean Verified 10/11/24 10:26 specific Carbon Syndrome Sulfa (Sulfonamide Allergy Unknown Unknown Verified 10/11/24 10:26 Antibiotics) cephalexin AdvReac Mild Nausea Verified 10/11/24 10:26 Home Medications Medication Instructions Recorded Confirmed Type ferrous sulfate 325 mg (65 mg 325 mg PO 3XWK 07/17/18 11/23/24 History iron) tablet (iron) raloxifene 60 mg tablet 60 mg PO QAM 01/20/20 11/23/24 History cyanocobalamin (vitamin B-12) 500 500 mcg PO QAM 12/20/20 11/23/24 History mcg tablet (Vitamin B-12) cranberry extract 500 mg capsule 0 mg PO QAM 05/08/21 11/23/24 History (Cranberry Concentrate) potassium chloride 10 mEq 20 meq PO TID 04/09/22 11/23/24 History tablet,extended release acetaminophen 500 mg tablet 1,000 mg PO Q8 PRN Pain 02/05/24 11/23/24 History cholecalciferol (vitamin D3) 125 125 mcg PO WK 09/27/24 11/23/24 History mcg (5,000 unit) tablet (Vitamin D3) diphenhydramine 25 2 tab PO HS 09/27/24 11/23/24 History mg-acetaminophen 500 mg tablet (Tylenol PM Extra Strength) Patient History Medical History History of colitis Neuropathy involving both lower extremities Hydronephrosis concurrent with and due to calculi of kidney and ureter History of seizure Single episode s/p benign brain tumor excision (1998) No issues since History of right breast cancer (2000) s/p radiation Kidney stones Anemia 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 Osteoarthritis 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 Surgical History Hx of lithotripsy (01/18/21) S/P cystoscopy with ureteral stent placement Multiple History of tooth extraction History of colonoscopy History of appendectomy History of total knee replacement R/L (2020) History of hip surgery right and left due to falling History of brain surgery (1998) 1998; benign tumor excision Hx of hysterectomy Hx of lumpectomy Right breast- had xrt Family History Mother Macular degeneration Father Kidney stone Diabetes Social History Smoking Status: Never smoker Tobacco Type: Declines Second Hand Exposure: No; Do You Dip or Chew Tobacco: No; Hx Alcohol Use: No Hx Substance Use: No Preferred Language: Yakut Communication Ability: Effective Visual Impairment: No Limitations [employer] Required: No Beliefs That Will Affect Care: None marital status: / Current Living Situation: Alone Current Living Situation Comment: son Feels Safe at Home: Yes Assistive Devices: Walker Review of Systems 2 Review of Systems: All systems reviewed & are unremarkable except as noted in HPI & below Physical Exam 2 Constitutional: well developed, well nourished, + acute distress (very slight d/t discomfort) and cooperative Eyes: EOM intact bilaterally ENMT: Mouth: + dry oral mucous membranes Respiratory: normal respiratory effort Auscultation: + diminished lung sounds Cardiovascular: RRR, no murmur, no edema Gastrointestinal (Abdomen): Inspection/Auscultation: normal bowel sounds P ercussion/Palpation: abdomen soft; abdomen nontender Musculoskeletal: Extremities: strength 5/5 throughout Skin: no rashes, warm and dry Neurologic: santana, fluent speech, no tremor Psychiatric: Orientation: alert and oriented x 3 Affect: + anxious affect Results & Data Vital Signs (Past 12 Hours) Vital Signs Pulse Resp BP Pulse Ox O2 Del Method O2 Flow Rate 11/24/24 10:24 84 12 98 11/24/24 10:15 100/45 L 11/24/24 10:00 112/58 L 11/24/24 09:54 85 0 L 98 11/24/24 09:05 79 11/24/24 09:00 85 15 97 11/24/24 08:45 104/49 L 11/24/24 08:30 83 12 96/51 L 98 11/24/24 08:15 104/50 L 11/24/24 08:00 Room Air 11/24/24 08:00 85 11 L 93/46 L 98 11/24/24 07:45 84 14 112/52 L 99 Room Air 11/24/24 07:06 82 15 99 11/24/24 06:45 104/47 L 11/24/24 06:15 76 14 102/42 L 98 Room Air 11/24/24 06:00 70 14 103/46 L 98 Room Air 11/24/24 05:45 80 16 106/47 L 97 Room Air 11/24/24 05:30 73 15 84/40 L 98 Room Air 11/24/24 05:15 72 13 98/38 L 98 Room Air 11/24/24 05:00 67 19 90/40 L 99 Room Air 11/24/24 04:45 67 15 94/39 L 100 Nasal Cannula 2 11/24/24 04:30 73 16 93/48 L 100 Nasal Cannula 2 11/24/24 04:15 74 15 111/63 100 Nasal Cannula 2 Laboratory Results 11/24/24 04:39 11/24/24 04:39 urine, blood pending Diagnostic Findings CT scan non con a/p (images personally reviewed) 1. Bilateral ureteral stents in good position with resolved hydronephrosis and decreased left parapelvic inflammation. 2. Interval fragmentation of left renal pelvic stone with numerous fragments layering in the renal pelvis and the left renal calyces. 3. Multiple small stones noted in the bladder.
[2024-11-24 17:14] LABS: BUN Creatinine Ratio 14.7 (10-20); Calcium 7.5 mg/dl (8.6-10.3); Creatinine Clr Calc Pharmacy 21.6 ml/min
[2024-11-24] MEDS: POTASSIUM CHLORIDE 40 MEQ in PLASMA-LYTE A 1,000 ML IV SCH (22:16)
[2024-11-25 04:40] LABS: BUN Creatinine Ratio 14.3 (10-20); Calcium 7.4 mg/dl (8.6-10.3); Creatinine Clr Calc Pharmacy 22.9 ml/min; Potassium 3.2 mmol/L (3.5-5.1)
[2024-11-25 05:22] LABS: Magnesium 1.7 mg/dl (1.7-2.4); Phosphorus 3.8 mg/dl (2.5-4.9)
[2024-11-25 05:36] LABS: Basophils # (auto) 0.03 K/uL (0.00-0.20); Basophils % (auto) 0.4 %; Eosinophils # (auto) 0.07 K/uL (0.00-0.50); Eosinophils % (auto) 0.9 %; Hematocrit (blood only) 26.3 % (37.0-47.0); Hemoglobin 8.6 g/dl (12.0-16.0); Immature Granulocytes # (auto) 0.08 K/uL (0.01-0.20); Lymphocytes # (auto) 0.54 K/uL (1.20-3.40); Mean Corpuscular Hemoglobin 30.2 pg (25.0-34.0); Mean Corpuscular Hgb Conc 32.7 g/dL (32.0-36.0); Mean Corpuscular Volume 92.3 fL (80.0-100.0); Mean Platelet Volume 9.6 fL (9.4-12.4); Monocytes # (auto) 0.65 K/uL (0.11-0.59); Monocytes % (auto) 8.4 %; Neutrophils # (auto) 6.34 K/uL (1.40-6.50); Neutrophils % (auto) 82.3 %; Platelet Count 287 K/uL (130-400); RDW Coefficient of Variation 15.9 % (11.5-14.5); RDW Standard Deviation 53.5 fL (36.4-46.3); Red Blood Count 2.85 M/uL (4.20-5.40); White Blood Count 7.71 K/ul (4.8-10.8)
[2024-11-25] MEDS: POTASSIUM CHLORIDE CRTAB 20 MEQ TABCR PO STA (05:44)
--- NOTE | 2024-11-25 08:25 | Critical Care Progress Note ---
Date of Service November 25, 2024 Assessment & Plan (1) Septic shock: Plan: Reason Critically Ill: 84-year-old female presents to the ICU with septic shock source, status post bilateral ureteral stent exchange with urology. She is currently requiring vasopressor support with Levophed drip (2) Urinary tract infection: (3) Metabolic acidosis: (4) MALINA (acute kidney injury): (5) History of seizure: (6) History of right breast cancer: (7) Kidney stones: Plan Reason Critically Ill: 84-year-old female presents to the ICU with septic shock source, status post bilateral ureteral stent exchange with urology. She is currently requiring vasopressor support with Levophed drip Neuro - [facility] ICU: Negative Cardiac - Shock likely septic in etiology, Given that patient has underlying UTI. Currently undergoing treatment with cefepime -Continue with vasopressor support to keep MAP greater than 65 -Random cortisol 14.22, which is on the lower side. If the patient blood pressure does not improve with Levophed then hydrocortisone will be thought of - Continuous monitoring on telemetry Respiratory - No history of pulmonary disease. -Continuous pulse ox monitoring GI - N.p.o. for now RENAL/LYTES - Acute kidney injury -> improving Likely due to ATN, given hypotension with sepsis. Baseline creatinine 0.8 - Avoid nephro toxins and renally adjust medications Nonanion gap metabolic acidosislikely due to Hyperchloremia(Chloride 118), And dehydration. -Status post bicarb drip -Lactic acid within normal limits - Hydronephrosisimproved on CT imaging. Underwent bilateral ureteral stent exchange with urology on 11/23/2024. Monitor for urinary output with Santillan catheter ENDO - -- ICU hypoglycemia protocol HEME - Hemoglobin 8.2 Hemoglobin from previous admission 8.9-9.0 in September. Continue with ferrous sulfate Monitor H&H ID - Sepsislikely due to urinary source. Previous UTIs with pansensitive Klebsiella Procalcitonin 2.2 Continue with cefepime --Prophylaxis VTE: Heparin GI: None Lines: Peripheral Diet: Regular Plan: In/out: Positive 476, urine output 2317 Hyperchloremic hypernatremia likely from IV fluids I will give the patient some free water p.o. Avoid normal saline IV. Creatinine is improving Magnesium and potassium replaced Patient hemodynamically stable to be downgrade to medical floor Please note the above document was generated using voice recognition software. It may contain grammatical, syntax or spelling errors.Any formal questions or concerns about the content, text or information contained within the body of this dictation should be directly addressed to the provider for clarification. Admission and Anticipated Discharge Date Admission Date: November 23, 2024 Subjective Patient seen and examined at bedside. No acute distress, notable symptoms overnight Patient systolic blood pressure was in the 120s at time of examination Saturation was 98% on room air Denied any abdominal pain No nausea or vomiting Was asking if you could transition to regular diet. Making good amount of urine Review of Systems 2 Review of Systems: All systems reviewed & are unremarkable except as noted in Subjective Physical Exam 2 Physical Exam: Constitutional: No acute distress HEENT: EOMI, PERRLA, hard to hear Respiratory system: Good air entry bilaterally, no wheeze, no rhonchi, mild crackles bilateral lower lobes CVS: S1-S2 positive, no murmurs or gallops Abdomen: Soft, nontender, nondistended, positive bowel sounds x4 Extremities: +2 pulses bilaterally radialis/ dorsalis pedis, no cyanosis, minimal pitting edema bilateral lower extremity Neuro: Awake alert oriented x3 Psych: Normal mood and affect G/U: Positive Santillan Skin: no rashes, warm and dry Lymphatic: no cervical or axillary lymphadenopathy Results & Data Results & Data Vital Signs (Past 12 Hours) Vital Signs Pulse Resp BP Pulse Ox 11/25/24 04:06 75 16 98 11/25/24 03:33 69 12 97 11/25/24 03:30 106/62 11/25/24 03:30 106/62 11/25/24 03:30 106/62 11/25/24 03:30 106/62 11/25/24 03:27 69 12 97 11/25/24 03:03 69 12 95 11/25/24 03:00 91/61 L 11/25/24 03:00 91/61 L 11/25/24 02:57 70 12 96 11/25/24 02:45 96/61 L 11/25/24 02:33 75 12 95 11/25/24 02:30 116/63 11/25/24 02:30 116/63 11/25/24 02:17 112/63 11/25/24 02:06 94 H 17 97 11/25/24 02:00 100/51 L 11/25/24 02:00 100/51 L 11/25/24 02:00 100/51 L 11/25/24 02:00 100/51 L 11/25/24 02:00 86 12 92 11/25/24 01:45 114/55 L 11/25/24 01:45 114/55 L 11/25/24 01:42 79 12 95 11/25/24 01:36 77 12 96 11/25/24 01:30 105/55 L 11/25/24 01:30 105/55 L 11/25/24 01:30 105/55 L 11/25/24 01:27 73 12 95 11/25/24 01:15 99/46 L 11/25/24 01:15 99/46 L 11/25/24 01:15 99/46 L 11/25/24 01:15 99/46 L 11/25/24 01:15 74 14 96 11/25/24 01:00 98/46 L 11/25/24 00:54 76 12 96 11/25/24 00:45 104/50 L 11/25/24 00:33 72 14 96 11/25/24 00:30 103/46 L 11/25/24 00:30 103/46 L 11/25/24 00:30 73 16 96 11/25/24 00:15 72 12 94 11/25/24 00:15 106/47 L 11/25/24 00:15 106/47 L 11/25/24 00:06 78 12 95 11/25/24 00:00 94/47 L 11/25/24 00:00 94/47 L 11/25/24 00:00 72 11/24/24 23:51 71 14 96 11/24/24 23:45 95/43 L 11/24/24 22:30 94/46 L 11/24/24 22:30 94/46 L 11/24/24 22:24 71 15 96 11/24/24 22:15 99/45 L 11/24/24 22:15 99/45 L 11/24/24 22:15 72 12 97 11/24/24 22:03 72 14 97 11/24/24 22:00 110/51 L 11/24/24 22:00 110/51 L 11/24/24 21:57 73 21 97 11/24/24 21:45 91/47 L 11/24/24 21:45 91/47 L 11/24/24 21:42 72 13 96 11/24/24 21:30 110/59 L 11/24/24 21:30 110/59 L 11/24/24 21:30 110/59 L 11/24/24 21:15 96/58 L 11/24/24 21:15 89 10 L 97 11/24/24 21:00 106/56 L 11/24/24 20:54 84 12 97 11/24/24 20:45 93/53 L 11/24/24 20:39 85 20 98 11/24/24 20:33 92 H 18 98 11/24/24 20:30 127/65 11/24/24 20:30 127/65 11/24/24 20:30 127/65 Laboratory Results 11/25/24 04:03 11/25/24 04:09 Coding Level of Care Code 13327 SUB INP/OBS CARE 3/50MIN Diagnoses Septic shock A41.9; R65.21 Urinary tract infection N39.0 Metabolic acidosis E87.20 MALINA (acute kidney injury) N17.9 History of seizure Z87.898 History of right breast cancer Z85.3 Kidney stones N20.0
--- NOTE | 2024-11-25 08:32 | Hospitalist Progress Note ---
Date of Service November 25, 2024 Assessment & Plan (1) Septic shock: (2) Urinary tract infection: (3) Ureteral stent present: Plan: 84-year-old female with history of hydronephrosis secondary to nephrolithiasis, ureteral stent placement last September 2024, other problems noted below presenting with weakness, lower abdominal pain. Septic shock Recurrent UTI Ureteral stent in place secondary to hydronephrosis secondary to nephrolithiasis Status post cystoscopy and bilateral retrograde and bilateral ureteral stent exchange on 11/23/2024 History of nephrolithiasis with bilateral stent placement. Patient presented with septic shock requiring ICU admission for vasopressors Urine culture - NGTD Blood cultureno growth till date Continue on cefepime; Transfer out of ICU Plan to remove Santillan catheter after patient is out of ICU Acute kidney injury Creatinine 2.3, baseline 0.87, Bicarb 12 ( on admission) Creatinine improved with IV hydration Continue hemodynamic support and IV fluids as needed, nephrology following D5 started for hypernatremia Prostatic right knee joint periprosthetic fracture Status post ORIF at 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 It may contain grammatical, syntax or spelling errors. Any formal questions or concerns about the content, text or information contained within the body of this dictation should be directly addressed to the provider for clarification Admission and Anticipated Discharge Date Admission Date: November 23, 2024 Subjective Patient seen and examined at bedside. Comfortable; not in distress. Denies fever, chills, chest pain, shortness of breath, abdominal pain or urinary symptoms. No significant overnight events Review of Systems Review of Systems: All systems reviewed & are unremarkable except as noted in Subjective Physical Exam Physical Exam: Constitutional: Alert oriented x 3; not in distress. Respiratory: bilateral vesicular breath sound Cardiovascular: RRR, no murmur, no edema Vessels: no JVD or carotid bruit Chest: normal inspection of chest Abdomen: Soft, nontender. Musculoskeletal: no cyanosis or clubbing, extremities motor strength 5/5 Skin: no rashes, warm and dry normal turgor Neurologic: PERRL, EOMI, accommodation nl, no face palsy, no dysarthria CN's II- XI intact bilaterally and moves all extremities Psychiatric: A+Ox3, euthymic affect Results & Data Results & Data Vital Signs (Past 12 Hours) Vital Signs Pulse Resp BP Pulse Ox 11/25/24 04:06 75 16 98 11/25/24 03:33 69 12 97 11/25/24 03:30 106/62 11/25/24 03:30 106/62 11/25/24 03:30 106/62 11/25/24 03:30 106/62 11/25/24 03:27 69 12 97 11/25/24 03:03 69 12 95 11/25/24 03:00 91/61 L 11/25/24 03:00 91/61 L 11/25/24 02:57 70 12 96 11/25/24 02:45 96/61 L 11/25/24 02:33 75 12 95 11/25/24 02:30 116/63 11/25/24 02:30 116/63 11/25/24 02:17 112/63 11/25/24 02:06 94 H 17 97 11/25/24 02:00 100/51 L 11/25/24 02:00 100/51 L 11/25/24 02:00 100/51 L 11/25/24 02:00 100/51 L 11/25/24 02:00 86 12 92 11/25/24 01:45 114/55 L 11/25/24 01:45 114/55 L 11/25/24 01:42 79 12 95 11/25/24 01:36 77 12 96 11/25/24 01:30 105/55 L 11/25/24 01:30 105/55 L 11/25/24 01:30 105/55 L 11/25/24 01:27 73 12 95 11/25/24 01:15 99/46 L 11/25/24 01:15 99/46 L 11/25/24 01:15 99/46 L 11/25/24 01:15 99/46 L 11/25/24 01:15 74 14 96 11/25/24 01:00 98/46 L 11/25/24 00:54 76 12 96 11/25/24 00:45 104/50 L 11/25/24 00:33 72 14 96 11/25/24 00:30 103/46 L 11/25/24 00:30 103/46 L 11/25/24 00:30 73 16 96 11/25/24 00:15 72 12 94 11/25/24 00:15 106/47 L 11/25/24 00:15 106/47 L 11/25/24 00:06 78 12 95 11/25/24 00:00 94/47 L 11/25/24 00:00 94/47 L 11/25/24 00:00 72 11/24/24 23:51 71 14 96 11/24/24 23:45 95/43 L 11/24/24 22:30 94/46 L 11/24/24 22:30 94/46 L 11/24/24 22:24 71 15 96 11/24/24 22:15 99/45 L 11/24/24 22:15 99/45 L 11/24/24 22:15 72 12 97 11/24/24 22:03 72 14 97 11/24/24 22:00 110/51 L 11/24/24 22:00 110/51 L 11/24/24 21:57 73 21 97 11/24/24 21:45 91/47 L 11/24/24 21:45 91/47 L 11/24/24 21:42 72 13 96 11/24/24 21:30 110/59 L 11/24/24 21:30 110/59 L 11/24/24 21:30 110/59 L 11/24/24 21:15 96/58 L 11/24/24 21:15 89 10 L 97 11/24/24 21:00 106/56 L 11/24/24 20:54 84 12 97 11/24/24 20:45 93/53 L 11/24/24 20:39 85 20 98 11/24/24 20:33 92 H 18 98 11/24/24 20:30 127/65 11/24/24 20:30 127/65 11/24/24 20:30 127/65
[2024-11-25] MEDS: DEXTROSE 5% 1,000 ML IV SCH (12:34)
--- NOTE | 2024-11-25 13:20 | Urology Progress Note ---
Date of Service November 25, 2024 Assessment & Plan (1) Ureteral stent present: (2) Urinary tract infection: (3) MALINA (acute kidney injury): Plan: 84 yo/F admitted for sepsis and concern for complicated UTI. Patient s/p bilateral ureteral stent exchange on 11/23. She is afebrile and hemodynamically stable. Labs reviewedcreatinine improved to 1.54, no leukocytosis, hemoglobin 8.6. Urine culture prelim with no growth. Blood cultures with no growth x 24 hours. Continue antibiotics and supportive care, follow cultures. Maintain Santillan catheter for now, can perform voiding trial prior to discharge. Will arrange outpatient follow-up with our service for ongoing management. will sign off, contact our service with any additional questions or concerns. Admission and Anticipated Discharge Date Admission Date: November 23, 2024 Subjective Patient seen and examined at bedside today. She is awake and resting in bed. Denies flank pain. Santillan intact. No fever or chills. Review of Systems Constitutional: as per Subjective / HPI Genitourinary: as per Subjective / HPI Physical Exam Constitutional: Laying comfortably in bed, NAD Respiratory: no respiratory distress and no labored breathing Neurologic: awake Psychiatric: Orientation: alert and oriented x 3 Genitourinary: Santillan catheter draining yellow urine with minimal blood tinge Results & Data Vital Signs (Past 12 Hours) Vital Signs Temp Pulse Resp BP Pulse Ox 11/25/24 11:44 36.8 C 11/25/24 11:00 122/69 11/25/24 10:54 92 H 18 99 11/25/24 10:00 120/62 11/25/24 09:51 75 14 97 11/25/24 09:46 76 11/25/24 09:03 90 16 97 11/25/24 09:00 105/64 11/25/24 08:06 84 15 98 11/25/24 08:00 113/62 11/25/24 07:40 36.6 C 11/25/24 07:30 108/53 L 11/25/24 07:00 72 22 97 11/25/24 07:00 114/57 L 11/25/24 04:06 75 16 98 11/25/24 03:33 69 12 97 11/25/24 03:30 106/62 11/25/24 03:30 106/62 11/25/24 03:30 106/62 11/25/24 03:30 106/62 11/25/24 03:27 69 12 97 11/25/24 03:03 69 12 95 11/25/24 03:00 91/61 L 11/25/24 03:00 91/61 L 11/25/24 02:57 70 12 96 11/25/24 02:45 96/61 L 11/25/24 02:33 75 12 95 11/25/24 02:30 116/63 11/25/24 02:30 116/63 11/25/24 02:17 112/63 11/25/24 02:06 94 H 17 97 11/25/24 02:00 100/51 L 11/25/24 02:00 100/51 L 11/25/24 02:00 100/51 L 11/25/24 02:00 100/51 L 11/25/24 02:00 86 12 92 11/25/24 01:45 114/55 L 11/25/24 01:45 114/55 L 11/25/24 01:42 79 12 95 11/25/24 01:36 77 12 96 11/25/24 01:30 105/55 L 11/25/24 01:30 105/55 L 11/25/24 01:30 105/55 L 11/25/24 01:27 73 12 95 PG Care Time/CCT Total # of Minutes Spent Total Time Spent with Patient: Total time spent is greater than 50% in coordination of care (as documented) at patient's floor/unit and/or counseling patient: Coding Level of Care Code 10517 SUB INP/OBS CARE 12/18MIN Diagnoses Ureteral stent present Z96.0 Urinary tract infection N39.0 MALINA (acute kidney injury) N17.9
[2024-11-25] MEDS: HEPARIN SOD 5,000 UNIT/0.5 ML VIAL SQ SCH (14:02)
[2024-11-25] MEDS: MAGNESIUM OXIDE 400 MG TAB PO SCH (14:02)
[2024-11-25 17:51] LABS: BUN Creatinine Ratio 13.8 (10-20); Calcium 7.6 mg/dl (8.6-10.3); Creatinine Clr Calc Pharmacy 24.3 ml/min; Potassium 3.2 mmol/L (3.5-5.1)
--- NOTE | 2024-11-25 18:46 | Nephrology Progress Note ---
Date of Service November 25, 2024 Assessment & Plan (1) MALINA (acute kidney injury): Plan: nonoliguric stage 2 MALINA improving after stent exchange and w/ tx of sepsis from urinary source. Presenting creatinine 2.3 11/23; baseline creatinine 0.9 as of September 2024; 0.7 as of January 2024. Down to 1.9 today. multiple mild electrolyte abnormalities > hyperchloremic metabolic acidosis and hypokalemia ongoing from diarrhea related presume to abtx -repeat bmp ordered for this PM > shows K still low at 3.2, w/ ongoing NAGMA -f/u pending cxs and sensi's > cont cefepime for now -daily bmp defer to primary service to w/u diarrhea as indicated has low K from diarrhea, NAGMA from NS and from diarrhea both > had 40 mEq po K today >> will give another 40 mEq po now and add 40 mEq/ L to D5W for another liter >>her low K is multifactorial from (2) Septic shock: Plan: resolved; no longer hypotensive and pressor dependent -continue abtx; judicious IVF -f/u cultures > blood cxs ngtd (3) Urinary tract infection: Plan: Admission UA w/ inflammation, 2+ bacter, no epis. >f/u cultures >> urine cx Klebsiella + Admission and Anticipated Discharge Date Admission Date: November 23, 2024 Subjective not sob; no pain in back; mortified by her diarrhea; minimal interest in food but denies issues swallowing; RN reports emotional lability adn 5-6 runny BM today Review of Systems 2 Review of Systems: All systems reviewed & are unremarkable except as noted in Subjective Physical Exam 2 Constitutional: well developed, well nourished, + acute distress (anxious tearful) and cooperative Eyes: EOM intact bilaterally ENMT: Mouth: + dry oral mucous membranes Respiratory: normal respiratory effort Auscultation: + diminished lung sounds Cardiovascular: RRR, no murmur, no edema Gastrointestinal (Abdomen): Inspection/Auscultation: normal bowel sounds P ercussion/Palpation: abdomen soft; abdomen nontender Musculoskeletal: Extremities: strength 5/5 throughout Skin: no rashes, warm and dry Psychiatric: Orientation: alert and oriented x 3 Affect: + anxious affect Results & Data Vital Signs (Past 12 Hours) Vital Signs Temp Pulse Resp BP Pulse Ox O2 Del Method 11/25/24 15:52 36.7 C 11/25/24 15:00 116/87 11/25/24 15:00 92 H 21 11/25/24 14:00 111/59 L 11/25/24 14:00 84 12 97 11/25/24 13:03 104 H 16 95 11/25/24 13:00 124/67 11/25/24 12:06 101 H 6 L 100 11/25/24 12:00 114/64 11/25/24 11:44 36.8 C 11/25/24 11:00 122/69 11/25/24 10:54 92 H 18 99 11/25/24 10:00 120/62 11/25/24 09:51 75 14 97 11/25/24 09:46 76 11/25/24 09:03 90 16 97 11/25/24 09:00 105/64 11/25/24 08:30 Room Air 11/25/24 08:06 84 15 98 11/25/24 08:00 113/62 11/25/24 07:40 36.6 C 11/25/24 07:30 108/53 L 11/25/24 07:00 72 22 97 11/25/24 07:00 114/57 L Laboratory Results 11/25/24 04:03 11/25/24 17:04
[2024-11-25] MEDS ORDERED: POTASSIUM CHLORIDE 40 MEQ in DEXTROSE 5% 1,000 ML IV SCH (19:00)
[2024-11-25] MEDS: POTASSIUM CHLORIDE CRTAB 20 MEQ TABCR PO ONE (19:20)
[2024-11-25] MEDS: POTASSIUM CHLORIDE 40 MEQ in DEXTROSE 5% 1,000 ML IV SCH (22:46)
[2024-11-26 06:21] LABS: Basophils # (auto) 0.03 K/uL (0.00-0.20); Basophils % (auto) 0.4 %; Eosinophils # (auto) 0.07 K/uL (0.00-0.50); Hematocrit (blood only) 28.6 % (37.0-47.0); Hemoglobin 9.5 g/dl (12.0-16.0); Immature Granulocytes # (auto) 0.07 K/uL (0.01-0.20); Lymphocytes # (auto) 0.64 K/uL (1.20-3.40); Lymphocytes % (auto) 8.8 %; Mean Corpuscular Hemoglobin 30.9 pg (25.0-34.0); Mean Corpuscular Hgb Conc 33.2 g/dL (32.0-36.0); Mean Corpuscular Volume 93.2 fL (80.0-100.0); Mean Platelet Volume 9.6 fL (9.4-12.4); Monocytes # (auto) 0.47 K/uL (0.11-0.59); Monocytes % (auto) 6.4 %; Neutrophils # (auto) 6.03 K/uL (1.40-6.50); Neutrophils % (auto) 82.4 %; Platelet Count 277 K/uL (130-400); RDW Standard Deviation 54.6 fL (36.4-46.3); Red Blood Count 3.07 M/uL (4.20-5.40); White Blood Count 7.31 K/ul (4.8-10.8)
[2024-11-26 06:46] LABS: BUN Creatinine Ratio 13.7 (10-20); Calcium 7.5 mg/dl (8.6-10.3); Creatinine Clr Calc Pharmacy 28.4 ml/min; Magnesium 1.7 mg/dl (1.7-2.4); Phosphorus 2.3 mg/dl (2.5-4.9); Potassium 3.5 mmol/L (3.5-5.1)
--- NOTE | 2024-11-26 08:58 | Hospitalist Progress Note ---
Date of Service November 26, 2024 Assessment & Plan (1) Septic shock: (2) Urinary tract infection: (3) Ureteral stent present: Plan: 84-year-old female with history of hydronephrosis secondary to nephrolithiasis, ureteral stent placement last September 2024, other problems noted below presenting with weakness, lower abdominal pain. Septic shock Recurrent UTI Ureteral stent in place secondary to hydronephrosis secondary to nephrolithiasis Status post cystoscopy and bilateral retrograde and bilateral ureteral stent exchange on 11/23/2024 History of nephrolithiasis with bilateral stent placement. Patient presented with septic shock requiring ICU admission for vasopressors Urine culture - NGTD Blood cultureno growth till date Will continue on antibiotic even though cultures are negative as patient's clinical presentation was consistent with septic shock likely secondary to pyelonephritis. Plan to switch to oral antibiotics at discharge to complete 14- day course. PT OT eval Remove Santillan catheter Acute kidney injury Creatinine 2.3, baseline 0.87, Bicarb 12 ( on admission) Creatinine improved with IV hydration D5 given for hypernatremia; resolved Prostatic right knee joint periprosthetic fracture Status post ORIF at 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 It may contain grammatical, syntax or spelling errors. Any formal questions or concerns about the content, text or information contained within the body of this dictation should be directly addressed to the provider for clarification Admission and Anticipated Discharge Date Admission Date: November 23, 2024 Subjective Patient seen and examined at bedside. Comfortable; not in distress. Denies fever, chills, chest pain, shortness of breath, abdominal pain or urinary symptoms. No significant overnight events Review of Systems Review of Systems: All systems reviewed & are unremarkable except as noted in Subjective Physical Exam Physical Exam: Constitutional: Alert oriented x 3; not in distress. Respiratory: bilateral vesicular breath sound Cardiovascular: RRR, no murmur, no edema Vessels: no JVD or carotid bruit Chest: normal inspection of chest Abdomen: Soft, nontender. Musculoskeletal: no cyanosis or clubbing, extremities motor strength 5/5 Skin: no rashes, warm and dry normal turgor Neurologic: PERRL, EOMI, accommodation nl, no face palsy, no dysarthria CN's II- XI intact bilaterally and moves all extremities Psychiatric: A+Ox3, euthymic affect Results & Data Results & Data Vital Signs (Past 12 Hours) Vital Signs Temp Pulse Pulse Resp BP Pulse Ox O2 Del Method 11/26/24 03:18 37.0 C 69 16 135/59 L 96 Room Air 11/26/24 00:17 76 11/25/24 23:34 36.8 C 71 16 119/60 97 Room Air
[2024-11-26] MEDS: ONDANSETRON INJ 2 MG/ML 2 ML VIAL IV PRN (11:09)
[2024-11-27 08:17] LABS: Basophils # (auto) 0.02 K/uL (0.00-0.20); Basophils % (auto) 0.3 %; Eosinophils # (auto) 0.06 K/uL (0.00-0.50); Eosinophils % (auto) 0.8 %; Immature Granulocytes # (auto) 0.11 K/uL (0.01-0.20); Immature Granulocytes % (auto) 1.5 %; Lymphocytes # (auto) 0.69 K/uL (1.20-3.40); Lymphocytes % (auto) 9.5 %; Mean Corpuscular Hemoglobin 29.9 pg (25.0-34.0); Mean Corpuscular Hgb Conc 32.3 g/dL (32.0-36.0); Mean Corpuscular Volume 92.5 fL (80.0-100.0); Mean Platelet Volume 9.5 fL (9.4-12.4); Monocytes # (auto) 0.38 K/uL (0.11-0.59); Monocytes % (auto) 5.2 %; Neutrophils # (auto) 6.03 K/uL (1.40-6.50); Neutrophils % (auto) 82.7 %; Platelet Count 291 K/uL (130-400); RDW Coefficient of Variation 15.9 % (11.5-14.5); RDW Standard Deviation 54.2 fL (36.4-46.3); Red Blood Count 3.35 M/uL (4.20-5.40); White Blood Count 7.29 K/ul (4.8-10.8)
[2024-11-27 08:36] LABS: BUN Creatinine Ratio 13.8 (10-20); Calcium 7.8 mg/dl (8.6-10.3); Creatinine Clr Calc Pharmacy 30.4 ml/min; Magnesium 2.1 mg/dl (1.7-2.4); Phosphorus 2.8 mg/dl (2.5-4.9); Potassium 3.1 mmol/L (3.5-5.1)
--- NOTE | 2024-11-27 10:10 | Hospitalist Progress Note ---
Date of Service November 27, 2024 Assessment & Plan (1) Septic shock: (2) Urinary tract infection: (3) Ureteral stent present: Plan: 84-year-old female with history of hydronephrosis secondary to nephrolithiasis, ureteral stent placement last September 2024, other problems noted below presenting with weakness, lower abdominal pain. Septic shock Recurrent UTI Ureteral stent in place secondary to hydronephrosis secondary to nephrolithiasis Status post cystoscopy and bilateral retrograde and bilateral ureteral stent exchange on 11/23/2024 History of nephrolithiasis with bilateral stent placement. Patient presented with septic shock requiring ICU admission for vasopressors Urine culture - NGTD Blood cultureno growth till date Will continue on antibiotic even though cultures are negative as patient's clinical presentation was consistent with septic shock likely secondary to pyelonephritis. Plan to switch to oral antibiotics at discharge to complete 14- day course. PT OT recommends rehab. 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 Please note the above document was generated using voice recognition software. It may contain grammatical, syntax or spelling errors. Any formal questions or concerns about the content, text or information contained within the body of this dictation should be directly addressed to the provider for clarification Admission and Anticipated Discharge Date Admission Date: November 23, 2024 Subjective Patient seen and examined at bedside. Comfortable; not in distress. Denies fever, chills, chest pain, shortness of breath, abdominal pain or urinary symptoms. No significant overnight events Physical Exam Physical Exam: Constitutional: Alert oriented x 3; not in distress. Respiratory: bilateral vesicular breath sound Cardiovascular: RRR, no murmur, no edema Vessels: no JVD or carotid bruit Chest: normal inspection of chest Abdomen: Soft, nontender. Musculoskeletal: no cyanosis or clubbing, extremities motor strength 5/5 Skin: no rashes, warm and dry normal turgor Neurologic: PERRL, EOMI, accommodation nl, no face palsy, no dysarthria CN's II- XI intact bilaterally and moves all extremities Psychiatric: A+Ox3, euthymic affect Results & Data Results & Data Vital Signs (Past 12 Hours) Vital Signs Temp Pulse Resp BP Pulse Ox O2 Del Method 11/27/24 08:02 36.7 C 81 18 105/60 99 Room Air 11/27/24 03:07 36.8 C 83 19 97/62 L 98 Room Air 11/26/24 22:55 36.7 C 83 16 97/58 L 97 Room Air
[2024-11-27] MEDS: POTASSIUM CHLORIDE CRTAB 20 MEQ TABCR PO STA (11:06)
[2024-11-28] MEDS: ERGOCALCIFEROL 1250 MCG (50,000 UNITS) CAP PO SCH (09:20)
--- NOTE | 2024-11-28 10:01 | Hospitalist Progress Note ---
Date of Service November 28, 2024 Assessment & Plan (1) Septic shock: (2) Urinary tract infection: (3) Ureteral stent present: Plan: 84-year-old female with history of hydronephrosis secondary to nephrolithiasis, ureteral stent placement last September 2024, other problems noted below presenting with weakness, lower abdominal pain. Septic shock Recurrent UTI Ureteral stent in place secondary to hydronephrosis secondary to nephrolithiasis Status post cystoscopy and bilateral retrograde and bilateral ureteral stent exchange on 11/23/2024 History of nephrolithiasis with bilateral stent placement. Patient presented with septic shock requiring ICU admission for vasopressors Urine culture - NGTD Blood cultureno growth till date Will continue on antibiotic even though cultures are negative as patient's clinical presentation was consistent with septic shock likely secondary to pyelonephritis. Plan to switch to oral antibiotics at discharge to complete 14- day course. PT OT recommends rehab. CM on board Acute kidney injury Creatinine 2.3, baseline 0.87, Bicarb 12 ( on admission) Creatinine improved with IV hydration D5 given for hypernatremia; Paroxysmal atrial tachycardia Telemetry reviewed during the hospitalization; some runs of paroxysmal atrial tachycardia. 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 Please note the above document was generated using voice recognition software. It may contain grammatical, syntax or spelling errors. Any formal questions or concerns about the content, text or information contained within the body of this dictation should be directly addressed to the provider for clarification Admission and Anticipated Discharge Date Admission Date: November 23, 2024 Subjective Patient seen and examined at bedside. Vital signs stable and she is afebrile No significant events overnight Review of Systems Review of Systems: All systems reviewed & are unremarkable except as noted in Subjective Physical Exam Physical Exam: Constitutional: Alert oriented x 3; not in distress. Respiratory: bilateral vesicular breath sound Cardiovascular: RRR, no murmur, no edema Vessels: no JVD or carotid bruit Chest: normal inspection of chest Abdomen: Soft, nontender. Musculoskeletal: no cyanosis or clubbing, extremities motor strength 5/5 Skin: no rashes, warm and dry normal turgor Neurologic: PERRL, EOMI, accommodation nl, no face palsy, no dysarthria CN's II- XI intact bilaterally and moves all extremities Psychiatric: A+Ox3, euthymic affect Results & Data Results & Data Vital Signs (Past 12 Hours) Vital Signs Temp Pulse Pulse Resp BP Pulse Ox O2 Del Method 11/28/24 08:25 36.9 C 83 20 115/70 97 Room Air 11/28/24 08:00 70 11/28/24 02:43 36.3 C L 84 14 103/65 99 Room Air 11/27/24 23:14 36.8 C 86 18 111/64 99 Room Air
[2024-11-28 10:49] LABS: BUN Creatinine Ratio 13.5 (10-20); Calcium 7.9 mg/dl (8.6-10.3); Creatinine Clr Calc Pharmacy 31.8 ml/min; Potassium 3.3 mmol/L (3.5-5.1)
[2024-11-28] MEDS: POTASSIUM CHLORIDE CRTAB 20 MEQ TABCR PO STA (14:02)
[2024-11-28] MEDS: METOPROLOL SUCC 25MG EXT REL TAB PO SCH (14:03)
[2024-11-28] MEDS: DEXTROSE 5% 500 ML IV SCH (14:21)
[2024-11-29 08:02] LABS: Basophils # (auto) 0.03 K/uL (0.00-0.20); Basophils % (auto) 0.4 %; Eosinophils # (auto) 0.11 K/uL (0.00-0.50); Eosinophils % (auto) 1.4 %; Hematocrit (blood only) 31.1 % (37.0-47.0); Hemoglobin 9.8 g/dl (12.0-16.0); Immature Granulocytes # (auto) 0.13 K/uL (0.01-0.20); Immature Granulocytes % (auto) 1.7 %; Lymphocytes # (auto) 1.14 K/uL (1.20-3.40); Lymphocytes % (auto) 14.9 %; Mean Corpuscular Hemoglobin 29.9 pg (25.0-34.0); Mean Corpuscular Hgb Conc 31.5 g/dL (32.0-36.0); Mean Corpuscular Volume 94.8 fL (80.0-100.0); Mean Platelet Volume 9.4 fL (9.4-12.4); Monocytes % (auto) 5.2 %; Neutrophils # (auto) 5.83 K/uL (1.40-6.50); Neutrophils % (auto) 76.4 %; Platelet Count 316 K/uL (130-400); RDW Coefficient of Variation 15.9 % (11.5-14.5); RDW Standard Deviation 55.5 fL (36.4-46.3); Red Blood Count 3.28 M/uL (4.20-5.40); White Blood Count 7.64 K/ul (4.8-10.8)
[2024-11-29 08:38] LABS: BUN Creatinine Ratio 11.8 (10-20); Calcium 7.7 mg/dl (8.6-10.3); Creatinine Clr Calc Pharmacy 34.4 ml/min
--- NOTE | 2024-11-29 11:14 | Psychiatric Consultation ---
Date of Consultation November 29, 2024 Impression / Recommendations Impression Diagnostically consistent with MDD vs adjustment disorder with depressed mood in context of recent medical issues. Acute risk of self-harm is low given denial of SI, future-oriented, hopeful about the future and feels well supported by family. Chronic risk is low given no hx of past attempts, multiple protective factors including family support. Overall, I spent a total of 45 minutes with this case including review of chart records, review of labwork, review of EKG QTc, direct evaluation of the patient at bedside, counseling the patient, discussion of the patient with the hospitalist provider, discussion with the psychiatric liason during clinical rounds and documentation in the electronic health record. (1) Depression: (2) MALINA (acute kidney injury): (3) Urinary tract infection: Plan -Safe for discharge from psychiatric standpoint once medically stable -Would start mirtazapine 7.5mg HS if she is stable from cardiac standpoint Psych History Identifying Data 84 yo woman with history of hydronephrosis secondary to nephrolithiasis, ureteral stent placement admitted with weakness, lower abdominal pain, septic shock and now with ongoing loose stools. Psychiatry consulted for depression and passive SI. Chief Complaint "Oh not too bad". History of Present Illness Thu has experienced septic shock and ongoing medical difficulties including loose stools, incontinence, pain and poor appetite. Recently made statement of passive SI that she wished she could go to sleep and not wake up. Was seen by psych liason yesterday and noted significantly hopelessness. Today she reports improvement in mood and denies any current SI. Acknowledges periods of intermittent passive Si but has never thought of a plan nor intent and would never act on this. Feels her mood has improved somewhat today and cites future-orientation about plan for physical rehab and then returning home. Feels a reason for living is "just getting better". Reflects that she previously wished at times during this hospitalization that "they could just give me a shot to " but now feels more hopeful that she's making progress noting "I hope on the road to recovery". She does confirm poor appetite which she attributes to bad taste/change in taste and difficulty with sleep due to loose stools. She's hopeful this resolves when she's able to stop the antibiotic. Denies significant pain today "only pain is in my body a little". She is interested in trying mirtazapine. Allergies Allergy/AdvReac Type Severity Reaction Status Date / Time influenza virus vaccine, Allergy Severe Gillean Verified 10/11/24 10:26 specific Ramseur Syndrome Sulfa (Sulfonamide Allergy Unknown Unknown Verified 10/11/24 10:26 Antibiotics) cephalexin AdvReac Mild Nausea Verified 10/11/24 10:26 Home Medications Medication Instructions Recorded Confirmed Type ferrous sulfate 325 mg (65 mg 325 mg PO 3XWK 07/17/18 11/23/24 History iron) tablet (iron) raloxifene 60 mg tablet 60 mg PO QAM 01/20/20 11/23/24 History cyanocobalamin (vitamin B-12) 500 500 mcg PO QAM 12/20/20 11/23/24 History mcg tablet (Vitamin B-12) cranberry extract 500 mg capsule 0 mg PO QAM 05/08/21 11/23/24 History (Cranberry Concentrate) potassium chloride 10 mEq 20 meq PO TID 04/09/22 11/23/24 History tablet,extended release acetaminophen 500 mg tablet 1,000 mg PO Q8 PRN Pain 02/05/24 11/23/24 History cholecalciferol (vitamin D3) 125 125 mcg PO WK 09/27/24 11/23/24 History mcg (5,000 unit) tablet (Vitamin D3) diphenhydramine 25 2 tab PO HS 09/27/24 11/23/24 History mg-acetaminophen 500 mg tablet (Tylenol PM Extra Strength) Patient History Medical History History of colitis Neuropathy involving both lower extremities Hydronephrosis concurrent with and due to calculi of kidney and ureter History of seizure Single episode s/p benign brain tumor excision (1998) No issues since History of right breast cancer (2000) s/p radiation Kidney stones Anemia Chronic 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 Osteoarthritis 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 Surgical History Hx of lithotripsy (01/18/21) S/P cystoscopy with ureteral stent placement Multiple History of tooth extraction History of colonoscopy History of appendectomy History of total knee replacement R/L (2020) History of hip surgery right and left due to falling History of brain surgery (1998) 1998; benign tumor excision Hx of hysterectomy Hx of lumpectomy Right breast- had xrt Family History Mother Macular degeneration Father Kidney stone Diabetes Social History Smoking Status: Never smoker Tobacco Type: Declines Second Hand Exposure: No; Do You Dip or Chew Tobacco: No; Hx Alcohol Use: No Hx Substance Use: No Preferred Language: Urdu Communication Ability: Effective Visual Impairment: No Limitations 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 Beliefs That Will Affect Care: None marital status: / Current Living Situation: Alone Current Living Situation Comment: son Feels Safe at Home: Yes Assistive Devices: Walker Physical Exam Psychiatric: Orientation: alert and oriented x 3 Apperance: appropriately dressed and appropriately groomed Eye Contact: good eye contact Motor Behavior: no abnormal motor movements Speech: normal rate/rhythm/volume of speech Affect: + constricted affect Mood: + depressed mood Thought Process: goal directed thought process Thought Content: reality based without delusions Suicidal Thoughts: denies suicidal thoughts (but recent passive SI) Homicidal Thoughts: denies homicidal thoughts Hallucinations: no auditory hallucinations and no visual hallucinations Cognition: attention grossly intact and language grossly intact Estimated Intelligence: consistent with education level Insight: + limited insight Judgment: + limited judgement Vital Signs (Past 24 Hours): Last Vital Signs Temp 36.7 C 11/29/24 07:28 Pulse 68 11/29/24 08:00 Resp 16 11/29/24 07:28 BP 121/70 11/29/24 07:28 Pulse Ox 97 11/29/24 07:28 O2 Del Method Room Air 11/29/24 08:00 O2 Flow Rate 0 11/26/24 11:20 Results & Data (PSY) Medications Administered Acetaminophen (Acetaminophen 325 Mg Tab) 650 mg PO Q4H PRN PRN Reason: Pain or Fever Stop: 12/23/24 17:53 Last Admin: 11/24/24 12:59 Dose: 650 mg Documented By: NMK Cyanocobalamin (Cyanocobalamin (B-12) 500 Mcg Tablet) 500 mcg PO QAM MEGAN Stop: 12/24/24 08:59 Last Admin: 11/29/24 07:46 Dose: 500 mcg Documented By: Admin: 11/28/24 09:20 Dose: 500 mcg Documented By: Admin: 11/27/24 09:36 Dose: 500 mcg Documented By: Admin: 11/26/24 08:24 Dose: 500 mcg Documented By: Admin: 11/25/24 09:41 Dose: 500 mcg Documented By: Admin: 11/24/24 11:28 Dose: 500 mcg Documented By: ALEXANDRE Ergocalciferol (Ergocalciferol 1250 Mcg (50,000 Units) Cap) 1,250 mcg PO Mcconnell@0900 [facility] Stop: 12/28/24 08:59 Last Admin: 11/28/24 09:20 Dose: 1,250 mcg Documented By: ALEXANDRE Ferrous Sulfate (Ferrous Sulfate 325 Mg Tab) 325 mg PO MoWeFr@0900 MEGAN Stop: 12/24/24 08:59 Last Admin: 11/29/24 07:46 Dose: 325 mg Documented By: Admin: 11/26/24 08:24 Dose: 325 mg Documented By: Admin: 11/24/24 11:28 Dose: 325 mg Documented By: ALEXANDRE Heparin Sodium (Porcine) (Heparin Sod 5,000 Unit/0.5 Ml Vial) 5,000 units SQ Q8 [facility] Stop: 12/25/24 13:59 Last Admin: 11/29/24 04:03 Dose: 5,000 units Documented By: Admin: 11/28/24 21:03 Dose: 5,000 units Documented By: Admin: 11/28/24 14:03 Dose: 5,000 units Documented By: Admin: 11/28/24 04:55 Dose: 5,000 units Documented By: Admin: 11/27/24 21:38 Dose: 5,000 units Documented By: Admin: 11/27/24 15:16 Dose: 5,000 units Documented By: Admin: 11/27/24 06:17 Dose: 5,000 units Documented By: Admin: 11/26/24 21:01 Dose: 5,000 units Documented By: Admin: 11/26/24 14:43 Dose: 5,000 units Documented By: Admin: 11/26/24 05:13 Dose: 5,000 units Documented By: Admin: 11/25/24 22:44 Dose: Not Given Documented By: Admin: 11/25/24 14:02 Dose: 5,000 units Documented By: RAY Cefepime HCl (Maxipime 2000mg) 1,000 mg in 10 mls @ 5 mls/min IV Q12H MEGAN; Protocol Stop: 12/04/24 03:59 Last Admin: 11/29/24 04:03 Dose: 5 mls/min Documented By: Admin: 11/28/24 16:52 Dose: 5 mls/min Documented By: Admin: 11/28/24 04:55 Dose: 5 mls/min Documented By: Admin: 11/27/24 15:16 Dose: 5 mls/min Documented By: Admin: 11/27/24 04:20 Dose: 5 mls/min Documented By: Admin: 11/26/24 17:28 Dose: 5 mls/min Documented By: Admin: 11/26/24 03:15 Dose: 5 mls/min Documented By: Admin: 11/25/24 16:47 Dose: 5 mls/min Documented By: Admin: 11/25/24 04:17 Dose: 5 mls/min Documented By: Admin: 11/24/24 17:01 Dose: 5 mls/min Documented By: Admin: 11/24/24 04:14 Dose: 5 mls/min Documented By: YAMIL Metoprolol Succinate (Metoprolol Succ 25mg Ext Rel Tab) 25 mg PO QAM MEGAN Stop: 12/28/24 13:29 Last Admin: 11/29/24 07:45 Dose: 25 mg Documented By: Admin: 11/28/24 14:03 Dose: 25 mg Documented By: ALEXANDRE Ondansetron HCl (Ondansetron Inj 2 Mg/Ml 2 Ml Vial) 4 mg IV Q6H PRN PRN Reason: Nausea And Vomiting Stop: 12/26/24 10:57 Last Admin: 11/29/24 07:45 Dose: 4 mg Documented By: Admin: 11/28/24 19:44 Dose: 4 mg Documented By: Admin: 11/27/24 20:16 Dose: 4 mg Documented By: Admin: 11/26/24 21:02 Dose: 4 mg Documented By: Admin: 11/26/24 11:09 Dose: 4 mg Documented By: AMS Coding Level of Care Code 34409 IN/OBS CONSULT LVL 3,45M Diagnoses Depression F32.A MALINA (acute kidney injury) N17.9 Urinary tract infection N39.0
--- NOTE | 2024-11-29 13:23 | Hospitalist Progress Note ---
Date of Service November 29, 2024 Assessment & Plan (1) Septic shock: (2) Urinary tract infection: (3) Ureteral stent present: Plan: 84-year-old female with history of hydronephrosis secondary to nephrolithiasis, ureteral stent placement last September 2024, other problems noted below presenting with weakness, lower abdominal pain. Septic shock Recurrent UTI Ureteral stent in place secondary to hydronephrosis secondary to nephrolithiasis Status post cystoscopy and bilateral retrograde and bilateral ureteral stent exchange on 11/23/2024 History of nephrolithiasis with bilateral stent placement. Patient presented with septic shock requiring ICU admission for vasopressors Urine culture - NGTD Blood cultureno growth till date Will continue on antibiotic even though cultures are negative as patient's clinical presentation was consistent with septic shock likely secondary to pyelonephritis. Plan to switch to oral antibiotics at discharge to complete 14- day course. PT OT recommends rehab. CM on board Acute kidney injury Creatinine 2.3, baseline 0.87, Bicarb 12 ( on admission) Creatinine improved with IV hydration D5 given for hypernatremia; Paroxysmal atrial tachycardia Telemetry reviewed during the hospitalization; some runs of paroxysmal atrial tachycardia. Started on metoprolol 25 mg once a day Continue telemonitoring Hypokalemia- repleted Prostatic right knee joint periprosthetic fracture Status post ORIF at [facility] 10/14/2024 Right lower extremity flatfoot weightbearing per Ortho PT/OT Mood disorderpatient evaluated by psychiatry during the hospitalization; recommended to start mirtazapine 7.5 mg at night. 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 Please note the above document was generated using voice recognition software. It may contain grammatical, syntax or spelling errors. Any formal questions or concerns about the content, text or information contained within the body of this dictation should be directly addressed to the provider for clarification Admission and Anticipated Discharge Date Admission Date: November 23, 2024 Subjective Patient seen and examined at bedside. Vital signs stable and she is afebrile No significant events overnight Review of Systems Review of Systems: All systems reviewed & are unremarkable except as noted in Subjective Physical Exam Physical Exam: Constitutional: Alert oriented x 3; not in distress. Respiratory: bilateral vesicular breath sound Cardiovascular: RRR, no murmur, no edema Vessels: no JVD or carotid bruit Chest: normal inspection of chest Abdomen: Soft, nontender. Musculoskeletal: no cyanosis or clubbing, extremities motor strength 5/5 Skin: no rashes, warm and dry normal turgor Neurologic: PERRL, EOMI, accommodation nl, no face palsy, no dysarthria CN's II- XI intact bilaterally and moves all extremities Psychiatric: A+Ox3, euthymic affect Results & Data Results & Data Vital Signs (Past 12 Hours) Vital Signs Temp Pulse Pulse Resp BP BP Pulse Ox 11/29/24 11:44 37.0 C 63 16 96/56 L 97 11/29/24 08:00 68 11/29/24 08:00 11/29/24 07:28 36.7 C 73 16 121/70 97 11/29/24 03:31 36.8 C 98 H 16 117/65 95 O2 Del Method 11/29/24 11:44 Room Air 11/29/24 08:00 11/29/24 08:00 Room Air 11/29/24 07:28 Room Air 11/29/24 03:31 Room Air
[2024-11-29] MEDS: LOPERAMIDE HCL 2 MG CAP PO PRN (13:58)
[2024-11-29] MEDS: MIRTAZAPINE TAB 15 MG TAB PO SCH (20:56)
--- NOTE | 2024-11-30 10:42 | Hospitalist Progress Note ---
Date of Service November 30, 2024 Assessment & Plan (1) Septic shock: (2) Urinary tract infection: (3) Ureteral stent present: Plan: 84-year-old female with history of hydronephrosis secondary to nephrolithiasis, ureteral stent placement last September 2024, other problems noted below presenting with weakness, lower abdominal pain. Septic shock Recurrent UTI Ureteral stent in place secondary to hydronephrosis secondary to nephrolithiasis Status post cystoscopy and bilateral retrograde and bilateral ureteral stent exchange on 11/23/2024 History of nephrolithiasis with bilateral stent placement. Patient presented with septic shock requiring ICU admission for vasopressors Urine culture - NGTD Blood cultureno growth till date Will continue on antibiotic even though cultures are negative as patient's clinical presentation was consistent with septic shock likely secondary to pyelonephritis. Plan to switch to oral antibiotics at discharge to complete 14-day course. will do Augmentin at the time of discharge given past culture results. Repeat PT/OT eval pending; patient's daughter concerned about patient's ability to take care of herself at home by herself. Acute kidney injury Creatinine 2.3, baseline 0.87, Bicarb 12 ( on admission) Creatinine improved with IV hydration D5 given for hypernatremia; Paroxysmal atrial tachycardia Telemetry reviewed during the hospitalization; some runs of paroxysmal atrial tachycardia. Started on metoprolol 25 mg once a day Continue telemonitoring Hypokalemia- repleted Prostatic right knee joint periprosthetic fracture Status post ORIF at [facility] 10/14/2024 Right lower extremity flatfoot weightbearing per Ortho PT/OT Mood disorderpatient evaluated by psychiatry during the hospitalization; recommended to start mirtazapine 7.5 mg at night. 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 Please note the above document was generated using voice recognition software. It may contain grammatical, syntax or spelling errors. Any formal questions or concerns about the content, text or information contained within the body of this dictation should be directly addressed to the provider for clarification Admission and Anticipated Discharge Date Admission Date: November 23, 2024 Subjective Patient seen and examined at bedside. Vital signs stable and she is afebrile No significant events overnight Physical Exam Physical Exam: Constitutional: Alert oriented x 3; not in distress. Respiratory: bilateral vesicular breath sound Cardiovascular: RRR, no murmur, no edema Vessels: no JVD or carotid bruit Chest: normal inspection of chest Abdomen: Soft, nontender. Musculoskeletal: no cyanosis or clubbing, extremities motor strength 5/5 Skin: no rashes, warm and dry normal turgor Neurologic: PERRL, EOMI, accommodation nl, no face palsy, no dysarthria CN's II- XI intact bilaterally and moves all extremities Psychiatric: A+Ox3, euthymic affect Results & Data Results & Data Vital Signs (Past 12 Hours) Vital Signs Temp Pulse Pulse Resp BP Pulse Ox O2 Del Method 11/30/24 07:07 36.7 C 97 H 18 123/65 96 Room Air 11/30/24 04:00 37.0 C 87 18 125/78 96 Room Air 11/29/24 22:56 71
[2024-11-30] MEDS: SODIUM CHLORIDE 0.9% 500 ML IV ONE (15:53)
[2024-12-01 08:27] LABS: Basophils # (auto) 0.04 K/uL (0.00-0.20); Basophils % (auto) 0.8 %; Eosinophils # (auto) 0.13 K/uL (0.00-0.50); Eosinophils % (auto) 2.5 %; Hematocrit (blood only) 28.2 % (37.0-47.0); Hemoglobin 8.8 g/dl (12.0-16.0); Immature Granulocytes # (auto) 0.09 K/uL (0.01-0.20); Immature Granulocytes % (auto) 1.7 %; Lymphocytes # (auto) 0.82 K/uL (1.20-3.40); Lymphocytes % (auto) 15.5 %; Mean Corpuscular Hemoglobin 29.5 pg (25.0-34.0); Mean Corpuscular Hgb Conc 31.2 g/dL (32.0-36.0); Mean Corpuscular Volume 94.6 fL (80.0-100.0); Mean Platelet Volume 9.8 fL (9.4-12.4); Monocytes # (auto) 0.38 K/uL (0.11-0.59); Monocytes % (auto) 7.2 %; Neutrophils # (auto) 3.84 K/uL (1.40-6.50); Neutrophils % (auto) 72.3 %; Platelet Count 271 K/uL (130-400); RDW Coefficient of Variation 15.9 % (11.5-14.5); RDW Standard Deviation 54.9 fL (36.4-46.3); Red Blood Count 2.98 M/uL (4.20-5.40)
[2024-12-01 14:39] LABS: Calcium 7.6 mg/dl (8.6-10.3); Potassium 2.6 mmol/L (3.5-5.1)
[2024-12-01 14:45] LABS: BUN Creatinine Ratio 9.3 (10-20); Creatinine Clr Calc Pharmacy 36.4 ml/min
--- NOTE | 2024-12-01 16:49 | Hospitalist Progress Note ---
Date of Service December 01, 2024 Assessment & Plan (1) Septic shock: (2) Urinary tract infection: (3) Ureteral stent present: Plan: 84-year-old female with history of hydronephrosis secondary to nephrolithiasis, ureteral stent placement last September 2024, other problems noted below presenting with weakness, lower abdominal pain. Septic shock Recurrent UTI Ureteral stent in place secondary to hydronephrosis secondary to nephrolithiasis Status post cystoscopy and bilateral retrograde and bilateral ureteral stent exchange on 11/23/2024 History of nephrolithiasis with bilateral stent placement. Patient presented with septic shock requiring ICU admission for vasopressors Urine culture - NGTD Blood cultureno growth till date Will continue on antibiotic even though cultures are negative as patient's clinical presentation was consistent with septic shock likely secondary to pyelonephritis. Plan to switch to oral antibiotics at discharge to complete 14-day course. will do Augmentin at the time of discharge given past culture results. PT/OT eval ; Patient will need placement. Acute kidney injury Creatinine 2.3, baseline 0.87, Bicarb 12 ( on admission) Creatinine improved with IV hydration D5 given for hypernatremia; Consider IV fluid if patient not maintaining adequate hydration if sodium continues to go up tomorrow. Paroxysmal atrial tachycardia Telemetry reviewed during the hospitalization; some runs of paroxysmal atrial tachycardia. Started on metoprolol 25 mg once a day, Continue. Continue telemonitoring Hypokalemia- Monitor replete. Repeat BMP at 10 PM today. Replacing total of 120 mill equivalent potassium today as K2.6 today. Prostatic right knee joint periprosthetic fracture Status post ORIF at [facility] 10/14/2024 Right lower extremity flatfoot weightbearing per Ortho PT/OT Mood disorderpatient evaluated by psychiatry during the hospitalization; recommended to start mirtazapine 7.5 mg at night. 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 Admission and Anticipated Discharge Date Admission Date: November 23, 2024 Subjective Patient seen and examined at bedside. Vital signs stable and she is afebrile No significant events overnight per pt Patient denies any complaints, reports eating okay and moving bowels okay. Tele w/ occasional sinus tach Physical Exam Physical Exam: Constitutional: Alert oriented x 3; not in distress. Respiratory: bilateral vesicular breath sound Cardiovascular: RRR, no murmur, no edema Vessels: no JVD or carotid bruit Chest: normal inspection of chest Abdomen: Soft, nontender. Musculoskeletal: no cyanosis or clubbing, extremities motor strength 5/5 Skin: no rashes, warm and dry normal turgor Neurologic: PERRL, EOMI, accommodation nl, no face palsy, no dysarthria CN's II- XI intact bilaterally and moves all extremities Psychiatric: A+Ox3, euthymic affect Results & Data Results & Data Vital Signs (Past 12 Hours) Vital Signs Temp Pulse Resp BP Pulse Ox O2 Del Method 12/01/24 15:39 36.9 C 77 18 96/55 L 97 Room Air 12/01/24 11:15 36.7 C 95 H 17 97/61 L 98 Room Air 12/01/24 07:28 36.8 C 77 17 106/61 98 Room Air
[2024-12-01] MEDS: POTASSIUM CHLORIDE CRTAB 20 MEQ TABCR PO SCH (17:39)
[2024-12-01] MEDS: POTASSIUM CHLORIDE / WTR 10 MEQ/100 ML PLCT IV SCH (17:39)
[2024-12-01 23:29] LABS: BUN Creatinine Ratio 11.1 (10-20); Calcium 7.8 mg/dl (8.6-10.3); Creatinine Clr Calc Pharmacy 39.2 ml/min; Potassium 3.8 mmol/L (3.5-5.1)
[2024-12-02 07:37] LABS: Calcium 7.8 mg/dl (8.6-10.3); Magnesium 1.6 mg/dl (1.7-2.4)
[2024-12-02 07:38] LABS: Hematocrit (blood only) 29.9 % (37.0-47.0); Hemoglobin 9.3 g/dl (12.0-16.0); Mean Corpuscular Hemoglobin 29.7 pg (25.0-34.0); Mean Corpuscular Hgb Conc 31.1 g/dL (32.0-36.0); Mean Corpuscular Volume 95.5 fL (80.0-100.0); Mean Platelet Volume 9.9 fL (9.4-12.4); Platelet Count 267 K/uL (130-400); RDW Coefficient of Variation 16.3 % (11.5-14.5); RDW Standard Deviation 56.7 fL (36.4-46.3); Red Blood Count 3.13 M/uL (4.20-5.40); White Blood Count 5.64 K/ul (4.8-10.8)
[2024-12-02 07:42] LABS: BUN Creatinine Ratio 10.6 (10-20); Creatinine Clr Calc Pharmacy 41.5 ml/min; Phosphorus 2.1 mg/dl (2.5-4.9)
--- NOTE | 2024-12-02 09:10 | Electrocardiogram Report ---
Test Reason : Blood Pressure : */* mmHG Vent. Rate : 103 BPM Atrial Rate : 103 BPM P-R Int : 176 ms QRS Dur : 72 ms QT Int : 318 ms P-R-T Axes : 74 14 64 degrees QTcB Int : 416 ms Poor data quality, interpretation may be adversely affected Sinus tachycardia Otherwise normal ECG When compared with ECG of 23-Nov-2024 16:17, No significant change was found Confirmed by Renato Aquino ([id number]) on 12/02/2024 9:09:46 AM Referred By: REFERRED SELF Confirmed By: Renato Aquino
[2024-12-02] MEDS: MAGNESIUM SULFATE / D5W 1 GM/100 ML BAG IV SCH (09:55)
[2024-12-02] MEDS: POT PHOSPHATE MONOBASIC W/ SOD TAB PO SCH (12:29)
--- NOTE | 2024-12-02 16:19 | Hospitalist Progress Note ---
Date of Service December 02, 2024 Assessment & Plan (1) Septic shock: (2) Urinary tract infection: (3) Ureteral stent present: Plan: 84-year-old female with history of hydronephrosis secondary to nephrolithiasis, ureteral stent placement last September 2024, other problems noted below presenting with weakness, lower abdominal pain. Septic shock Recurrent UTI Ureteral stent in place secondary to hydronephrosis secondary to nephrolithiasis Status post cystoscopy and bilateral retrograde and bilateral ureteral stent exchange on 11/23/2024 History of nephrolithiasis with bilateral stent placement. Patient presented with septic shock requiring ICU admission for vasopressors Urine culture - NGTD Blood cultureno growth till date Will continue on antibiotic even though cultures are negative as patient's clinical presentation was consistent with septic shock likely secondary to pyelonephritis. Plan to switch to oral antibiotics at discharge to complete 14-day course. will do Augmentin at the time of discharge given past culture results. PT/OT eval ; Patient will need placement. Acute kidney injury Creatinine 2.3, baseline 0.87, Bicarb 12 ( on admission) Creatinine improved with IV hydration D5 given for hypernatremia; Consider IV fluid if patient not maintaining adequate hydration if sodium continues to go up tomorrow. Paroxysmal atrial tachycardia Telemetry reviewed during the hospitalization; some runs of paroxysmal atrial tachycardia. Started on metoprolol 25 mg once a day, Continue. Continue telemonitoring Hypokalemia- Monitor replete. Repeat BMP at 10 PM today. Replacing total of 120 mill equivalent potassium today as K2.6 today. Prostatic right knee joint periprosthetic fracture Status post ORIF at [facility] 10/14/2024 Right lower extremity flatfoot weightbearing per Ortho PT/OT Mood disorderpatient evaluated by psychiatry during the hospitalization; recommended to start mirtazapine 7.5 mg at night. 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 Admission and Anticipated Discharge Date Admission Date: November 23, 2024 Subjective Patient seen and examined at bedside. Vital signs stable and she is afebrile No significant events overnight per pt Patient denies any complaints. Per RN, 1 large loose bowel today AM. Will add probiotic and psyllium fiber. Pt state she is starting to eat better. Physical Exam Physical Exam: Constitutional: Alert oriented x 3; not in distress. Respiratory: bilateral vesicular breath sound Cardiovascular: RRR, no murmur, no edema Vessels: no JVD or carotid bruit Chest: normal inspection of chest Abdomen: Soft, nontender. Musculoskeletal: no cyanosis or clubbing, extremities motor strength 5/5 Skin: no rashes, warm and dry normal turgor Neurologic: PERRL, EOMI, accommodation nl, no face palsy, no dysarthria CN's II- XI intact bilaterally and moves all extremities Psychiatric: A+Ox3, euthymic affect Results & Data Results & Data Vital Signs (Past 12 Hours) Vital Signs Temp Pulse Resp BP BP Pulse Ox O2 Del Method 12/02/24 15:16 37.0 C 71 18 109/74 96 Room Air 12/02/24 11:10 36.9 C 84 18 109/66 96 Room Air 12/02/24 07:16 36.8 C 69 18 110/64 97 Room Air
[2024-12-02] MEDS: ADVANCED PROBIOTIC 625 MG CAPSULE PO SCH (17:26)
[2024-12-02] MEDS: PSYLLIUM or GUAR GUM FIBER 4GM PACKET PO SCH (18:20)
[2024-12-03 06:08] LABS: Hemoglobin 8.7 g/dl (12.0-16.0); Mean Corpuscular Hemoglobin 29.9 pg (25.0-34.0); Mean Corpuscular Hgb Conc 31.1 g/dL (32.0-36.0); Mean Corpuscular Volume 96.2 fL (80.0-100.0); Mean Platelet Volume 10.1 fL (9.4-12.4); Platelet Count 240 K/uL (130-400); RDW Coefficient of Variation 16.3 % (11.5-14.5); RDW Standard Deviation 57.1 fL (36.4-46.3); Red Blood Count 2.91 M/uL (4.20-5.40); White Blood Count 4.78 K/ul (4.8-10.8)
[2024-12-03 06:28] LABS: Calcium 7.5 mg/dl (8.6-10.3); Creatinine Clr Calc Pharmacy 39.2 ml/min; Magnesium 1.9 mg/dl (1.7-2.4); Potassium 3.1 mmol/L (3.5-5.1)
[2024-12-03] MEDS: POTASSIUM CHLORIDE CRTAB 20 MEQ TABCR PO STA (08:55)
[2024-12-03] MEDS: POTASSIUM CHLORIDE CRTAB 20 MEQ TABCR PO ONE (11:38)
--- NOTE | 2024-12-03 12:06 | Hospitalist Progress Note ---
Date of Service December 03, 2024 Assessment & Plan (1) Septic shock: (2) Urinary tract infection: (3) Ureteral stent present: Plan: 84-year-old female with history of hydronephrosis secondary to nephrolithiasis, ureteral stent placement last September 2024, other problems noted below presenting with weakness, lower abdominal pain. Septic shock Recurrent UTI Ureteral stent in place secondary to hydronephrosis secondary to nephrolithiasis Status post cystoscopy and bilateral retrograde and bilateral ureteral stent exchange on 11/23/2024 History of nephrolithiasis with bilateral stent placement. Patient presented with septic shock requiring ICU admission for vasopressors Urine culture - NGTD Blood cultureno growth till date Will continue on antibiotic even though cultures are negative as patient's clinical presentation was consistent with septic shock likely secondary to pyelonephritis. Plan to switch to oral antibiotics at discharge to complete 14-day course. will do Augmentin at the time of discharge given past culture results. PT/OT eval ; Patient will need placement. Acute kidney injury Creatinine 2.3, baseline 0.87, Bicarb 12 ( on admission) Creatinine improved with IV hydration Encourage PO fluid intake. Paroxysmal atrial tachycardia Telemetry reviewed during the hospitalization; some runs of paroxysmal atrial tachycardia. Started on metoprolol 25 mg once a day, Continue. Continue telemonitoring Hypokalemia- Monitor replete. restart KCL at 20 meq bid, take 20 meq tid at home. Prostatic right knee joint periprosthetic fracture Status post ORIF at [facility] 10/14/2024 Right lower extremity flatfoot weightbearing per Ortho PT/OT Mood disorderpatient evaluated by psychiatry during the hospitalization; recommended to start mirtazapine 7.5 mg at night. 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 Admission and Anticipated Discharge Date Admission Date: November 23, 2024 Subjective Patient seen and examined at bedside. Vital signs stable and she is afebrile No significant events overnight per pt Patient denies any complaints. Pt reports chronic loose stools. Physical Exam Physical Exam: Constitutional: Alert oriented x 3; not in distress. Respiratory: bilateral vesicular breath sound Cardiovascular: RRR, no murmur, no edema Vessels: no JVD or carotid bruit Chest: normal inspection of chest Abdomen: Soft, nontender. Musculoskeletal: no cyanosis or clubbing, extremities motor strength 5/5 Skin: no rashes, warm and dry normal turgor Neurologic: PERRL, EOMI, accommodation nl, no face palsy, no dysarthria CN's II- XI intact bilaterally and moves all extremities Psychiatric: A+Ox3, euthymic affect Results & Data Results & Data Vital Signs (Past 12 Hours) Vital Signs Temp Pulse Resp BP BP Pulse Ox O2 Del Method 12/03/24 10:55 36.6 C 96 H 18 113/72 99 Room Air 12/03/24 08:00 36.7 C 83 18 111/69 99 Room Air 12/03/24 03:16 36.8 C 81 20 106/65 97 Room Air
[2024-12-03] MEDS: AMOXICILLIN/CLAVULANATE 875 MG TAB PO SCH (16:45)
[2024-12-03] MEDS: POTASSIUM CHLORIDE CRTAB 20 MEQ TABCR PO SCH (20:25)
[2024-12-04 05:01] VITALS: PULSE 76; O2SAT 98
[2024-12-04 07:57] VITALS: BP 95/62; RESP 18; TEMP 98.1
[2024-12-04 10:28] LABS: Hematocrit (blood only) 33.6 % (37.0-47.0); Hemoglobin 10.2 g/dl (12.0-16.0); Mean Corpuscular Hemoglobin 29.9 pg (25.0-34.0); Mean Corpuscular Hgb Conc 30.4 g/dL (32.0-36.0); Mean Corpuscular Volume 98.5 fL (80.0-100.0); Mean Platelet Volume 10.1 fL (9.4-12.4); Platelet Count 256 K/uL (130-400); RDW Coefficient of Variation 16.6 % (11.5-14.5); RDW Standard Deviation 59.7 fL (36.4-46.3); Red Blood Count 3.41 M/uL (4.20-5.40); White Blood Count 5.84 K/ul (4.8-10.8)
[2024-12-04 10:45] LABS: Calcium 8.1 mg/dl (8.6-10.3); Potassium 3.2 mmol/L (3.5-5.1)
[2024-12-04] MEDS: POTASSIUM CHLORIDE CRTAB 20 MEQ TABCR PO STA (11:07)
--- NOTE | 2024-12-04 11:11 | Discharge Summary ---
Date of Service December 04, 2024 Admission HPI Per Admitting Provider 84-year-old female with history of hydronephrosis secondary to nephrolithiasis, ureteral stent placement last September 2024, other problems noted below presenting with weakness, lower abdominal pain. Patient underwent ureteral stent placement last September 2024 for hydronephrosis secondary to nephrolithiasis. She has had multiple episodes of UTI since. Early October, the patient was admitted to [facility] for periprosthetic fracture around prosthetic right knee joint status post ORIF at [facility]. She was then [facility] a [facility], advised to resume Lovenox x 3 weeks. During that admission, patient was also treated for a urinary tract infection secondary to Klebsiella. After being discharged from penitentiary facility, the patient has been treated for recurrent UTIs. Last urine culture was in November 18, 2024 growing Klebsiella. She was started with antibiotics last night but could not remember which one. Patient presented to the ER for progressive weakness, poor appetite, abdominal discomfort. Patient admitted to the ER with blood pressure systolic 90s. Urinalysis showing signs of UTI Patient given vancomycin plus cefepime. On my exam, patient was seen resting in bed, awake, alert, answering questions appropriately, feels weak but otherwise denies headache, shortness of breath, chest pain. Blood pressure at the time was systolic 99. During the evening, patient's blood pressure was noted to be systolic 60s to 70s. Levophed started, transferred to ICU, urologist message for emergent removal/exchange of stent. Dr. Fitzgerald agreed to perform the procedure this evening. Admission Exam Per Admitting Provider General- oriented x 3, not in distress, speaks in sentences with no effort or accessory muscle use weak Head- atraumatic Eyes- PERRL, EOMI, anicteric ENT- oropharynx clear Neck- supple, no JVD, no adenopathy, no thyromegaly; carotids +2/2, no bruits appreciated Lungs- clear to auscultation bilaterally, no rales/wheezes Heart- normal rate, regular rhythm; no murmur, no gallop, no rub appreciated Abdomen- normal bowel sounds, nondistended, soft, nontender, no masses or hepatosplenomegaly no CVA tenderness Extremities- no pretibial edema, no calf tenderness; peripheral pulses intact Neuro- alert, oriented x 3; CN 2-12 grossly intact; motor 5/5 bilaterally;sensation 100% on all extremities; no other gross focal neurologic deficits Skin- warm & dry Principal Diagnosis Septic shock Recurrent UTI Ureteral stent in place secondary to hydronephrosis secondary to nephrolithiasis Status post cystoscopy and bilateral retrograde and bilateral ureteral stent exchange on 11/23/2024 Acute kidney injury Paroxysmal atrial tachycardia Hypokalemia iso chronic diarrhea Discharge Exam Constitutional: Alert oriented x 3; not in distress. Respiratory: bilateral vesicular breath sound Cardiovascular: RRR, no murmur, no edema Vessels: no JVD or carotid bruit Chest: normal inspection of chest Abdomen: Soft, nontender. Musculoskeletal: no cyanosis or clubbing, extremities motor strength 5/5 Skin: no rashes, warm and dry normal turgor Neurologic: PERRL, EOMI, accommodation nl, no face palsy, no dysarthria CN's II- XI intact bilaterally and moves all extremities Psychiatric: A+Ox3, euthymic affect Discharge Data Allergies Allergy/AdvReac Type Severity Reaction Status Date / Time influenza virus vaccine, Allergy Severe [place] Verified 10/11/24 10:26 specific [place] Syndrome Sulfa (Sulfonamide Allergy Unknown Unknown Verified 10/11/24 10:26 Antibiotics) cephalexin AdvReac Mild Nausea Verified 10/11/24 10:26 Consultations 11/23/24 17:53 ED Decision to Admit Stat 11/23/24 17:57 Consult Nephrology Routine Consult Urology Routine 11/24/24 04:47 Consult Production Supv Routine 11/28/24 19:01 Consult Psychiatry Routine Procedures Performed Operation Date: 11/23/24 22:00 Actual Procedures p Cystoscopy, Bilateral Retrograde and Bilateral Ureteral Stent Exchange(Bilateral) - Jose Antonio Fitzgerald MD Ordered Studies 11/23/24 FL KUB Routine 11/23/24 15:34 CT Abd and Pelvis [CT abd pelvis wo con] Stat Hospital Course (1) Septic shock: (2) Urinary tract infection: (3) Ureteral stent present: 84-year-old female with history of hydronephrosis secondary to nephrolithiasis, ureteral stent placement last September 2024, other problems noted below presenting with weakness, lower abdominal pain. Septic shock Recurrent UTI Ureteral stent in place secondary to hydronephrosis secondary to nephrolithiasis Status post cystoscopy and bilateral retrograde and bilateral ureteral stent exchange on 11/23/2024 History of nephrolithiasis with bilateral stent placement. Patient presented with septic shock requiring ICU admission for vasopressors Urine culture - NGTD Blood cultureno growth till date Will continue on antibiotic even though cultures are negative as patient's clinical presentation was consistent with septic shock likely secondary to pyelonephritis. 14 day atb course, augmentin on dc. probiotics added. Patient is at her baseline hemodynamically. Acute kidney injury Creatinine 2.3, baseline 0.87, Bicarb 12 ( on admission) Creatinine improved with IV hydration Encourage PO fluid intake. At least 1 L of Pedialyte solution to help with electrolyte management in the setting of chronic diarrhea. Paroxysmal atrial tachycardia Telemetry reviewed during the hospitalization; some runs of paroxysmal atrial tachycardia. Started on metoprolol 25 mg once a day, Reduced the dose to 12.5 Mg daily, continue. Continue telemonitoring Hypokalemia- Monitor replete. Continue with 20 mEq 3 times daily. Prostatic right knee joint periprosthetic fracture Status post ORIF at [facility] 10/14/2024 Right lower extremity flatfoot weightbearing per Ortho PT/OT Mood disorderpatient evaluated by psychiatry during the hospitalization; recommended to start mirtazapine 7.5 mg at night. 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 Patient is being discharged to SNF with following instruction at the point of discharge: Follow-up with your primary care physician within a week time and likely you will need labs CBC/CMP/magnesium/phosphorus. You were treated for septic shock secondary to urinary tract infection. You will be discharged on antibiotic to complete the course. Probiotics will be added. Given your history of chronic diarrhea, encourage that you take at least 1 L solution of Pedialyte every day, continue to take your potassium supplement as prior. Closely follow-up with your PCP office for ongoing monitoring/management. Follow-up with nephrology in 2 to 4 weeks time upon discharge. Given your history of paroxysmal atrial tachycardia, you have been started on metoprolol during this admission. Take your medications as prescribed. Please make sure that you are able to get your medications today by calling your pharmacy before you leave the hospital so that your treatment continuity is not broken. Home Health Attestation I certify that this patient is under my care and that I, or a physicians registered nurse first assistant working with me, had a face to-face encounter that meets the home health [id number] encounter requirements with this patient. The encounter with the patient was in whole, or in part, for the following medical condition, which is the primary reason for home health care (list medical condition): I certify that, based on my findings, the following services are medically necessary home health services: My clinical findings support the need for the above services because: Further, I certify that my clinical findings support that this patient is homebound (i.e. absences from home require considerable and taxing effort and are for medical reasons or protestant services or infrequently or of short duration when for other reasons) because: Certification for Home Health Services: Based on the above findings, I certify that this patient is confined to the home and needs intermittent penitentiary care, physical therapy and/or speech therapy or continues to need occupational therapy. The patient is under my care, and I have initiated the establishment of the plan of care. This patient will be followed by a physician who will periodically review the plan of care. Total Time Total Time Spent Total Time Spent (In Minutes): 35 Discharge Plan Discharge Items Patient Disposition: Transfer Shelter Fac Reason For Visit: UTI Discharge Diagnosis: Septic shock Recurrent UTI Ureteral stent in place secondary to hydronephrosis secondary to nephrolithiasis Status post cystoscopy and bilateral retrograde and bilateral ureteral stent exchange on 11/23/2024 Acute kidney injury Paroxysmal atrial tachycardia Hypokalemia iso chronic diarrhea Activity: Resume your previous activity Non-emergency contact: Primary Care Provider Call non-emergency contact if: you have any medication questions and your symptoms worsen Follow-up/Referrals: Indu Ambrocio [Primary Care Provider] - Diet: Regular Addtl Attending Provider Instructions: Follow-up with your primary care physician within a week time and likely you will need labs CBC/CMP/magnesium/phosphorus. You were treated for septic shock secondary to urinary tract infection. You will be discharged on antibiotic to complete the course. Probiotics will be added. Given your history of chronic diarrhea, encourage that you take at least 1 L solution of Pedialyte every day, continue to take your potassium supplement as prior. Closely follow-up with your PCP office for ongoing monitoring/management. Follow-up with nephrology in 2 to 4 weeks time upon discharge. Given your history of paroxysmal atrial tachycardia, you have been started on metoprolol during this admission. Take your medications as prescribed. Please make sure that you are able to get your medications today by calling your pharmacy before you leave the hospital so that your treatment continuity is not broken. Pending Studies at Discharge: No Stand-Alone Forms: My [facility] Skilled Items Patient informed of condition?: Yes DNR: No Discharge Level of Care: Skilled Communicable Disease: No Discharge Prognosis: Stable Lines: None Urinary Catheter: No Medications and DC Order Prescriptions: New amoxicillin-pot clavulanate 875-125 mg Tablet 1 tab PO BIDM 3 Days Qty: 6 0RF metoprolol succinate 25 mg Tablet Extended Release 24 Hr 12.5 mg PO QAM Qty: 30 0RF mirtazapine 15 mg Tablet 7.5 mg PO HS Qty: 15 0RF Advanced Probiotic 625 mg (10 billion cell) Capsule 1 cap PO DAILY 7 Days Qty: 7 0RF loperamide 2 mg Capsule 2 mg PO Q6H PRN (Reason: loose stool) Qty: 30 0RF Continued cyanocobalamin (vitamin B-12) [Vitamin B-12] 500 mcg Tablet 500 mcg PO QAM ferrous sulfate [iron] 325 mg (65 mg iron) Tablet 325 mg PO [id number] Rx Instructions: take on Mondays, Wednesdays, and Fridays cranberry extract [Cranberry Concentrate] 500 mg capsule 0 mg PO QAM raloxifene 60 mg tablet 60 mg PO QAM potassium chloride 10 mEq tablet extended release 20 meq PO TID acetaminophen 500 mg tablet 1,000 mg PO Q8 PRN (Reason: Pain) diphenhydramine-acetaminophen [Tylenol PM Extra Strength] 25-500 mg Tablet 2 tab PO HS cholecalciferol (vitamin D3) [Vitamin D3] 125 mcg (5,000 unit) Tablet 125 mcg PO WK Rx Instructions: friday Discharge Orders: Discharge Order (Routine); Ordered 12/04/24 Ordered By: Terry Stout Admission Data Admit Date/Time: 11/23/24 17:54 Attending Provider: Terry Stout Admit Provider: Angelo Sherman Primary Care Provider: Indu Ambrocio Other Providers: Khari Neves [facility]; Angelo Sherman; Alecia Coto; Gallo Diane; Robyn Guzman; Pauline Melendez; Sharee Coronado; Matt Hines; Linnea Keane; Santos Ontiveros; Kaykay Nolen; Dipti Haas; Waldo Rehman; Linnette Hathaway; Kassi Graves; [facility]
[2024-12-05] MEDS ORDERED: METOPROLOL SUCC 25MG EXT REL TAB PO SCH (09:00)
--- NOTE | 2024-12-08 06:47 | Coding Query ---
CODING QUERY To promote full compliance with coding requirements relating to patient care, provider participation is requested in all cases of quality control assistant uncertainty. Please assist us with the question(s) below: In the record, it states that the patient has an UTI. Please clarify below the cause of the UTI if applicable. Thank you. (x ) ureteral stent was the cause of the UTI. ( ) Other urinary cath/device was the cause of the UTI. ( ) UTI, unspecified cause. ( ) Other (Specify): Principal Diagnosis: "that condition established after study, to be chiefly responsible for occasioning the admission of the patient to the hospital for care." Co-Existing Principal Diagnosis: "when two or more diagnoses equally meet the criteria for principal diagnosis as determined by the circumstances of admission, diagnostic work up, and/or therapy provided, and the Alphabetic Index, Tabular List, or another coding guideline does not provide sequencing direction, any one of the diagnoses may be sequenced first." "When the physician has documented what appears to be a current diagnosis in the body of the record, but has not included the diagnosis in the final diagnostic statement, the physician should be asked whether the diagnosis should be added." (Source Coding [facility] 2 QTR90. p3-4) MEGAN
== END 2024-12-04 11:45 | DRG 659 ==
LOC: ED 15:02 → EDINP 17:54 → SUATTDRO 17:54 → EDINP 19:59 → 1E 11-24 00:20 → 4W 11-26 20:57

== ENCOUNTER 2025-01-29 09:58 | Inpatient (IN) ==
--- NOTE | 2025-01-29 10:54 | Emergency Department Note ---
Impression & Plan Ureteral stent present, Fever, Hypotension ED Provider Note CHIEF COMPLAINT: Flank pain HISTORY OF PRESENT ILLNESS: This 84-year-old female patient with past medical history very nice sepsis, renal stents in place presents to the emergency department with complaints of pain in the back. Patient had a recent ureteral stent exchange and ureteroscopy by Dr. Joshua. She is scheduled for repeat examination in approximately 1 month. She did start antibiotics last evening due to some burning with urination. Urine cultures obtained yesterday are pending. She has not had any vomiting. REVIEW OF SYSTEMS: A review of systems was performed with positives and pertinent negatives listed in the history of present illness. 10 systems were reviewed and are otherwise negative. ALLERGIES: see below MEDICATIONS: see below PMH: see below SOCIAL HISTORY: see below DDx: Sepsis, ureteral obstruction, influenza, dehydration, UTI/pyelonephritis, abscess among others. PHYSICAL EXAM: Vital signs reviewed. Noted to be hypotensive. General: Well-appearing 84-year-old female, in no significant distress. HEENT: No scleral icterus, PERRLA, neck supple. hard of hearing mucous membranes. Cardiovascular: Regular rate and rhythm, no extra sounds. Pulmonary: Clear to auscultation bilaterally, normal work of breathing. Abdomen: Soft, nontender, nondistended, positive bowel sounds. Musculoskeletal: Atraumatic, no peripheral edema. Positive right CVA tenderness. Neurologic: Patient awake alert and oriented x 3, speech is clear Skin: Warm, dry, no rash EMERGENCY DEPARTMENT COURSE/MDM: this patient was evaluated and appeared to be in no significant distress. IV access was obtained and laboratory work was drawn. 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 She is noted to be hypotensive, however the patient states she normally "runs low." She is running fever 38.5. She was hydrated with normal saline solution 30 mL/kg and given 1 g of IV acetaminophen. Blood cultures were obtained. Patient was medicated with 2 g of IV cefepime. She requested pain medication was given 25 mcg of IV fentanyl. patient is noted to have leukocytosis at 13, normal procalcitonin and lactic acid. UA is concerning for infection , although patient does have bilateral ureteral stents, but urine will be sent for culture to confirm. Dr. Mckeon of urology was notified of the patient's situation. We reviewed CT abdomen pelvis which reveals no acute findings and ureteral stents in place. Patient remained slightly hypotensive but has negative sepsis markers. IV fluids were continued. Case was discussed with Dr. Sunita Hill of the hospitalist service who was agreed to evaluate the patient for admission and further management. MONITORING: An order for cardiac monitoring was placed and the patient is noted to be in a normal sinus rhythm at 84 beats per minute. RADIOLOGY: CXR to my interpretation reveals a possible R lower infiltrate CT abd/pelvis: IMPRESSION: 1. No acute findings. 2. Bilateral ureteral stents have migrated slightly proximally compared to the prior exam but the distal pigtails remain within the urinary bladder and there is no hydronephrosis. 3. Otherwise as described. EKG: To my interpretation reveals normal sinus rhythm at [address] segments. QTc of 403. No PVC, no PAC. DISPOSITION: Admission I have personally spent greater than 35 minutes of critical care time in the direct management of this patient. This includes bedside care, interpretation of diagnostic studies, and testing, discussion with consultants, patient, and family members, and other required patient management activities. This 35 minutes is in excess of all separately billable procedures. Past Med/Surg History Problem List (Updated 02/02/25 @ 02:12 by Christiane Leal MD) Hypotension (Acute) Fever (Acute) Tatum tropicalis infection Abnormal CT scan, chest Acute retention of urine Diarrhea due to drug Chronic renal failure (CRF), stage 3b Electrolyte abnormality Right upper lobe pneumonia Encounter for preoperative assessment (Acute) Bilateral kidney stones (Chronic) Depression Metabolic acidosis Ureteral stent present (Acute) Periprosthetic fracture around internal prosthetic right knee joint Medical History Depression Hypotension States Metoprolol on hold Hx of sepsis Sepsis/MALINA r/t UTI, hospitalized at [facility] 10/2024 History of colitis Neuropathy involving both lower extremities Hydronephrosis concurrent with and due to calculi of kidney and ureter History of seizure Single episode s/p benign brain tumor excision (1998) No issues since History of right breast cancer (2000) s/p radiation Kidney stones Anemia 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 Osteoarthritis 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 Surgical History History of postoperative nausea and vomiting History of open reduction and internal fixation (ORIF) procedure right femur fx - [facility] - 09/2024 Hx of lithotripsy (01/18/21) S/P cystoscopy with ureteral stent placement Multiple History of tooth extraction History of colonoscopy History of appendectomy History of total knee replacement R/L (2020) History of hip surgery right and left due to falling History of brain surgery (1998) 1998; benign tumor excision Hx of hysterectomy Hx of lumpectomy Right breast- had xrt Family History Mother Macular degeneration Father Kidney stone Diabetes Social History Smoking Status: Never smoker Tobacco Type: Declines Second Hand Exposure: No; Do You Dip or Chew Tobacco: No; Hx Alcohol Use: No Hx Substance Use: No Preferred Language: Honduran Communication Ability: Effective Visual Impairment: No 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 Beliefs That Will Affect Care: None marital status: / Current Living Situation: Alone Current Living Situation Comment: son Feels Safe at Home: Yes Assistive Devices: None Allergies Allergies Allergy/AdvReac Type Severity Reaction Status Date / Time influenza virus vaccine, Allergy Severe [place] Verified 01/29/25 12:51 specific [place] Syndrome Sulfa (Sulfonamide Allergy Unknown Unknown Verified 01/29/25 12:51 Antibiotics) cephalexin AdvReac Mild Nausea Verified 01/29/25 12:51 Home Meds Home Medications Medication Instructions Recorded Confirmed ferrous sulfate 325 mg (65 mg 325 mg PO QDL 07/17/18 01/29/25 iron) tablet (iron) raloxifene 60 mg tablet 60 mg PO QAM 01/20/20 01/29/25 cyanocobalamin (vitamin B-12) 500 500 mcg PO QAM 12/20/20 01/29/25 mcg tablet (Vitamin B-12) cranberry extract 500 mg capsule 500 mg PO QAM 05/08/21 01/29/25 (Cranberry Concentrate) potassium chloride 10 mEq 40 meq PO BIDWMEAL 04/09/22 01/29/25 tablet,extended release acetaminophen 500 mg tablet 1,000 mg PO Q8 PRN Pain 02/05/24 01/29/25 Bifidobacterium infantis 4 mg 4 mg PO QDL 01/04/25 01/29/25 capsule (Align (B.infantis)) cholecalciferol (vitamin D3) 25 25 mcg PO QDL 01/29/25 01/29/25 mcg (1,000 unit) tablet (Vitamin D3) mirtazapine 7.5 mg tablet 7.5 mg PO HS 01/29/25 01/29/25 Previous Rx's Medication Instructions Recorded loperamide 2 mg capsule 2 mg PO Q6H PRN loose stool #30 12/04/24 caps Results & Data (ED) Vital Signs Vital Signs - 24 hr 01/29/25 10:08 01/29/25 10:44 01/29/25 10:44 Temperature 36.8 C Temperature Source Skin Pulse Rate 96 H 97 H Pulse Rate [Apical] 97 H Pulse Rhythm Regular Pulse Rhythm [Apical] Regular Pulse Strength [Apical] Normal Respiratory Rate 18 20 20 Respiratory Effort / Characteristics Non-Labored Spontaneous Non-Labored Respiratory Depth Normal Normal Respiratory Pattern Regular Regular Blood Pressure 94/60 L Blood Pressure [Left Arm] 87/59 L Blood Pressure Mean 71 Blood Pressure Mean [Left Arm] 68 Blood Pressure Position [Left Arm] Lying Pulse Oximetry 96 97 97 Oxygen Delivery Method Room Air Room Air Room Air Sepsis Recent Fever Within 48 Hours No Sepsis New/Unexplained Change in Mental Status N/A Sepsis Action Taken by Nursing No Action Required 01/29/25 10:52 01/29/25 10:59 01/29/25 11:14 Temperature 37.5 C Temperature Source Oral Pulse Rate 84 Pulse Rate [Apical] 94 H 88 Pulse Rhythm Pulse Rhythm [Apical] Regular Regular Pulse Strength [Apical] Normal Normal Respiratory Rate 20 17 Respiratory Effort / Characteristics Non-Labored Spontaneous Non-Labored Spontaneous Respiratory Depth Normal Normal Respiratory Pattern Regular Regular Blood Pressure Blood Pressure [Left Arm] 125/80 87/59 L Blood Pressure Mean Blood Pressure Mean [Left Arm] 95 68 Blood Pressure Position [Left Arm] Lying Pulse Oximetry 98 97 Oxygen Delivery Method Room Air Room Air Sepsis Recent Fever Within 48 Hours Sepsis New/Unexplained Change in Mental Status Sepsis Action Taken by Nursing 01/29/25 11:29 01/29/25 11:44 01/29/25 12:00 Temperature Temperature Source Pulse Rate Pulse Rate [Apical] 97 H 93 H 96 H Pulse Rhythm Pulse Rhythm [Apical] Regular Regular Regular Pulse Strength [Apical] Normal Normal Normal Respiratory Rate 16 14 16 Respiratory Effort / Characteristics Non-Labored Spontaneous Non-Labored Spontaneous Non-Labored Spontaneous Respiratory Depth Normal Normal Normal Respiratory Pattern Regular Regular Regular Blood Pressure Blood Pressure [Left Arm] 88/49 L 84/43 L 82/49 L Blood Pressure Mean Blood Pressure Mean [Left Arm] 62 56 60 Blood Pressure Position [Left Arm] Lying Lying Pulse Oximetry 97 97 98 Oxygen Delivery Method Room Air Room Air Room Air Sepsis Recent Fever Within 48 Hours Sepsis New/Unexplained Change in Mental Status Sepsis Action Taken by Nursing 01/29/25 12:15 01/29/25 12:30 01/29/25 13:30 Temperature 37 C Temperature Source Oral Pulse Rate Pulse Rate [Apical] 91 H 99 H 95 H Pulse Rhythm Pulse Rhythm [Apical] Regular Regular Regular Pulse Strength [Apical] Normal Normal Normal Respiratory Rate 16 17 18 Respiratory Effort / Characteristics Non-Labored Spontaneous Non-Labored Spontaneous Non-Labored Respiratory Depth Normal Normal Normal Respiratory Pattern Regular Regular Regular Blood Pressure Blood Pressure [Left Arm] 88/47 L 89/62 L 79/44 L Blood Pressure Mean Blood Pressure Mean [Left Arm] 60 71 55 Blood Pressure Position [Left Arm] Pulse Oximetry 98 98 98 Oxygen Delivery Method Room Air Room Air Room Air Sepsis Recent Fever Within 48 Hours Sepsis New/Unexplained Change in Mental Status Sepsis Action Taken by Nursing 01/29/25 13:45 01/29/25 14:00 01/29/25 14:15 Temperature Temperature Source Pulse Rate Pulse Rate [Apical] 86 85 84 Pulse Rhythm Pulse Rhythm [Apical] Regular Regular Regular Pulse Strength [Apical] Normal Normal Normal Respiratory Rate 14 14 12 Respiratory Effort / Characteristics Non-Labored Spontaneous Non-Labored Spontaneous Non-Labored Spontaneous Respiratory Depth Normal Normal Normal Respiratory Pattern Regular Regular Regular Blood Pressure Blood Pressure [Left Arm] 88/49 L 79/46 L 74/42 L Blood Pressure Mean Blood Pressure Mean [Left Arm] 62 57 52 Blood Pressure Position [Left Arm] Pulse Oximetry 98 97 96 Oxygen Delivery Method Room Air Room Air Room Air Sepsis Recent Fever Within 48 Hours Sepsis New/Unexplained Change in Mental Status Sepsis Action Taken by Nursing 01/29/25 14:22 01/29/25 14:30 01/29/25 14:45 Temperature Temperature Source Pulse Rate Pulse Rate [Apical] 89 89 84 Pulse Rhythm Pulse Rhythm [Apical] Regular Regular Pulse Strength [Apical] Normal Normal Respiratory Rate 18 16 14 Respiratory Effort / Characteristics Non-Labored Spontaneous Non-Labored Spontaneous Respiratory Depth Normal Normal Normal Respiratory Pattern Regular Regular Blood Pressure Blood Pressure [Left Arm] 88/50 L 98/57 L 94/55 L Blood Pressure Mean Blood Pressure Mean [Left Arm] 62 70 68 Blood Pressure Position [Left Arm] Pulse Oximetry 96 97 98 Oxygen Delivery Method Room Air Room Air Room Air Sepsis Recent Fever Within 48 Hours Sepsis New/Unexplained Change in Mental Status Sepsis Action Taken by Detention Medications Current Medication List: was personally reviewed by me Laboratory Data Attestation: I reviewed the patient's lab results. 02/01/25 04:01 02/01/25 04:01 Lab Results 01/29/25 01/29/25 01/29/25 Range/Units 10:59 11:13 12:38 WBC 13.23 H (4.8-10.8) K/ul RBC 3.48 L (4.20-5.40) M/uL Hgb 10.3 L (12.0-16.0) g/dl Hct 32.3 L (37.0-47.0) % MCV 92.8 (80.0-100.0) fL MCH 29.6 (25.0-34.0) pg MCHC 31.9 L (32.0-36.0) g/dL RDW Std Deviation 56.5 H (36.4-46.3) fL RDW Coeff of Addie 16.7 H (11.5-14.5) % Plt Count 444 H (130-400) K/uL MPV 8.8 L (9.4-12.4) fL Immature Gran % (Auto) 0.6 % Neut % (Auto) 85.1 % Lymph % (Auto) 4.4 % [place] % (Auto) 9.4 % Eos % (Auto) 0.0 % Baso % (Auto) 0.5 % Neut # (Auto) 11.27 H (1.40-6.50) K/uL Lymph # (Auto) 0.58 L (1.20-3.40) K/uL [place] # (Auto) 1.24 H (0.11-0.59) K/uL Eos # (Auto) 0.00 (0.00-0.50) K/uL Baso # (Auto) 0.06 (0.00-0.20) K/uL Immature Gran # (Auto) 0.08 (0.01-0.20) K/uL Sodium 133 L (136-145) mmol/L Potassium 4.6 (3.5-5.1) mmol/L Chloride 113 H (98-107) mmol/L Carbon Dioxide 12 L (21-32) mmol/L Anion Gap 8 (3-11) BUN 25 H (6-23) mg/dl Creatinine 1.68 H (0.6-1.2) mg/dl Est Cr Clr Drug Dosing 20.0 ml/min eGFR 29.99 BUN/Creatinine Ratio 14.9 (10-20) Glucose 143 H (70-99(Fasting)) mg/dl Lactate 1.3 (0.4-2.0) mmol/L Calcium 8.9 (8.6-10.3) mg/dl Magnesium 2.1 (1.7-2.4) mg/dl Total Bilirubin 0.4 (0.2-1.0) mg/dl Direct Bilirubin 0.0 (0-0.2) mg/dl AST 9 L (13-39) U/L ALT 6 L (7-52) U/L Alkaline Phosphatase 104 (34-104) U/L Troponin I High Sens < 2.3 (0-14) pg/ml Total Protein 7.2 (6.0-8.3) gm/dl Albumin 3.4 (3.4-5.0) gm/dl Procalcitonin 0.28 (0-0.5) ng/ml Urine Color [place] Urine Appearance Turbid A (Clear) Urine pH 5.5 (4.5-7.5) Ur Specific [place] 1.012 (1.000-1.030) Urine Protein 2+ H (Negative) Urine Glucose (UA) Negative (Negative) Urine Ketones Negative (Negative) Urine Blood 3+ H (Negative) Urine Nitrite Negative (Negative) Urine Bilirubin Negative (Negative) Urine Urobilinogen Negative (Negative) Ur Leukocyte Esterase 3+ H (Negative) Urine WBC (Auto) >50 H (0-5) /hpf Urine RBC (Auto) >20 H (0-2) /hpf U Hyaline Cast (Auto) 11-20 H (0-2) /lpf U Epithel Cells (Auto) 11-20 H (0-2) /hpf Urine Bacteria (Auto) 2+ H (None Seen) Urine Yeast Present A (None Prsent) Influenza A (RT-PCR) Negative (Negative) Influenza B (RT-PCR) Negative (Negative) RSV (RT-PCR) Negative (Negative) Administered Medications Acetaminophen (Acetaminophen 325 Mg Tab) 650 mg PO Q6H PRN PRN Reason: Pain or Fever Stop: 02/28/25 16:15 Last Admin: 01/30/25 14:38 Dose: 650 mg Documented By: Admin: 01/30/25 00:58 Dose: 650 mg Documented By: ALEISHA Diclofenac Sodium (Diclofenac Sod 1% Gel 100 Gm Tube) 2 gm EXT TID PRN; Protocol PRN Reason: Pain Stop: 03/01/25 13:59 Last Admin: 01/31/25 20:04 Dose: 2 gm Documented By: SCOTT Doxycycline Hyclate (Doxycycline Hyclate 100 Mg Cap) 100 mg PO BID [facility] Stop: 02/04/25 20:59 Last Admin: 02/01/25 20:08 Dose: 100 mg Documented By: Admin: 02/01/25 08:28 Dose: 100 mg Documented By: Admin: 01/31/25 20:07 Dose: 100 mg Documented By: Admin: 01/31/25 09:07 Dose: 100 mg Documented By: Admin: 01/30/25 20:09 Dose: 100 mg Documented By: ALEISHA Hydrocortisone Sodium (Succinate 50 mg/ Syringe) 1 mls @ 4 mls/min IV Q6H [facility] Stop: 02/28/25 14:59 Last Admin: 02/01/25 21:30 Dose: 4 mls/min Documented By: Admin: 02/01/25 16:33 Dose: 4 mls/min Documented By: Admin: 02/01/25 08:29 Dose: 4 mls/min Documented By: Admin: 02/01/25 02:39 Dose: 4 mls/min Documented By: Admin: 01/31/25 20:08 Dose: 4 mls/min Documented By: Admin: 01/31/25 14:45 Dose: 4 mls/min Documented By: Admin: 01/31/25 09:46 Dose: 4 mls/min Documented By: Admin: 01/31/25 02:00 Dose: 4 mls/min Documented By: Admin: 01/30/25 20:11 Dose: 4 mls/min Documented By: Admin: 01/30/25 15:27 Dose: 4 mls/min Documented By: Admin: 01/30/25 08:47 Dose: 4 mls/min Documented By: Admin: 01/30/25 03:14 Dose: 4 mls/min Documented By: Admin: 01/29/25 21:16 Dose: 4 mls/min Documented By: Admin: 01/29/25 16:33 Dose: 4 mls/min Documented By: SAMANTHA Ceftriaxone Sodium (Rocephin) 1,000 mg in 50 mls @ 100 mls/hr IV Q24H MEGAN Stop: 02/09/25 09:59 Last Infusion: 02/01/25 10:00 Dose: Infused Documented By: Admin: 02/01/25 09:27 Dose: 100 mls/hr Documented By: Infusion: 01/31/25 10:22 Dose: Infused Documented By: Admin: 01/31/25 09:46 Dose: 100 mls/hr Documented By: Infusion: 01/30/25 11:07 Dose: Infused Documented By: Admin: 01/30/25 10:26 Dose: 100 mls/hr Documented By: SAMANTHA Fluconazole (Diflucan) 200 mg in 100 mls @ 100 mls/hr IV Q24H MEGAN Stop: 02/13/25 09:59 Last Infusion: 02/01/25 09:28 Dose: Infused Documented By: Admin: 02/01/25 08:29 Dose: 100 mls/hr Documented By: SAMANTHA Loperamide HCl (Loperamide Hcl 2 Mg Cap) 2 mg PO Q6H PRN PRN Reason: Diarrhea Stop: 03/01/25 00:51 Last Admin: 02/01/25 14:36 Dose: 2 mg Documented By: Admin: 01/31/25 23:54 Dose: 2 mg Documented By: Admin: 01/30/25 20:09 Dose: 2 mg Documented By: Admin: 01/30/25 11:55 Dose: 2 mg Documented By: Admin: 01/30/25 00:58 Dose: 2 mg Documented By: CLC Mirtazapine (Mirtazapine Tab 15 Mg Tab) 7.5 mg PO HS MEGAN Stop: 02/28/25 20:59 Last Admin: 02/01/25 20:08 Dose: 7.5 mg Documented By: Admin: 01/31/25 20:06 Dose: 7.5 mg Documented By: Admin: 01/30/25 20:09 Dose: 7.5 mg Documented By: Admin: 01/29/25 21:15 Dose: 7.5 mg Documented By: CLC Discontinued Medications Fentanyl Citrate (Fentanyl Citrate Pf 100 Mcg/2 Ml Vial) 25 mcg IV NOW STA Stop: 01/29/25 10:46 Last Admin: 01/29/25 11:59 Dose: Not Given Documented By: SRL Fludrocortisone Acetate (Fludrocortisone Acetate 0.1 Mg Tab) 0.1 mg PO QAM MEGAN Stop: 02/28/25 14:59 Last Admin: 01/31/25 09:07 Dose: 0.1 mg Documented By: Admin: 01/30/25 08:47 Dose: 0.1 mg Documented By: Admin: 01/29/25 16:33 Dose: 0.1 mg Documented By: WRS Sodium Chloride (Nss) 1,000 mls @ 999 mls/hr IV .Q1H1M MEGAN Stop: 01/29/25 11:45 Last Infusion: 01/29/25 11:59 Dose: Infused Documented By: Admin: 01/29/25 11:23 Dose: 999 mls/hr Documented By: SRL Cefepime HCl (Maxipime 2000mg) 2,000 mg in 20 mls @ 5 mls/min IV NOW STA; Protocol Stop: 01/29/25 10:48 Last Admin: 01/29/25 11:23 Dose: 5 mls/min Documented By: SRL Sodium Chloride (Nss) 500 mls @ 999 mls/hr IV .Q31M ONE Stop: 01/29/25 11:15 Last Infusion: 01/29/25 12:34 Dose: Infused Documented By: Admin: 01/29/25 11:59 Dose: 999 mls/hr Documented By: SRL Acetaminophen (Ofirmev) 1,000 mg in 100 mls @ 400 mls/hr IV NOW STA Stop: 01/29/25 10:59 Last Infusion: 03/08/25 11:40 Dose: Infused Documented By: Admin: 01/29/25 11:23 Dose: 400 mls/hr Documented By: SRL Norepinephrine Bitartrate (Levophed/D5w) 4 mg in 250 mls @ 0 mls/hr IV .Q0M [facility]; Protocol Stop: 02/28/25 13:29 Last Titration: 02/01/25 14:32 Dose: Infused Documented By: WRS Co-signed By: CB Titration: 01/31/25 11:33 Dose: 0 mcg/kg/min, 0 mls/hr Documented By: WRS Co-signed By: CMP Titration: 01/31/25 09:50 Dose: 0.02 mcg/kg/min, 3.7 mls/hr Documented By: WRS Co-signed By: CAM Titration: 01/31/25 06:57 Dose: 0.04 mcg/kg/min, 7.5 mls/hr Documented By: WRS Co-signed By: CLC Titration: 01/31/25 05:45 Dose: 0.04 mcg/kg/min, 7.5 mls/hr Documented By: CLC Co-signed By: [id number] Titration: 01/31/25 05:30 Dose: 0.02 mcg/kg/min, 3.7 mls/hr Documented By: CLC Co-signed By: [id number] Titration: 01/31/25 05:15 Dose: 0.04 mcg/kg/min, 7.5 mls/hr Documented By: CLC Co-signed By: [id number] Titration: 01/31/25 00:40 Dose: 0.06 mcg/kg/min, 11.2 mls/hr Documented By: CLC Co-signed By: [id number] Titration: 01/31/25 00:05 Dose: 0.04 mcg/kg/min, 7.5 mls/hr Documented By: CLC Co-signed By: [id number] Admin: 01/30/25 21:48 Dose: 0.06 mcg/kg/min, 11.2 mls/hr Documented By: CLC Co-signed By: [id number] Titration: 01/30/25 21:09 Dose: Infused Documented By: CLC Co-signed By: [id number] Titration: 01/30/25 20:50 Dose: 0.06 mcg/kg/min, 11.2 mls/hr Documented By: CLC Co-signed By: CP Titration: 01/30/25 19:30 Dose: 0.08 mcg/kg/min, 15 mls/hr Documented By: CLC Co-signed By: CP Titration: 01/30/25 18:49 Dose: 0.1 mcg/kg/min, 18.7 mls/hr Documented By: WRS Co-signed By: CLC Titration: 01/30/25 18:03 Dose: 0.1 mcg/kg/min, 18.7 mls/hr Documented By: WRS Co-signed By: CB Titration: 01/30/25 17:33 Dose: 0.08 mcg/kg/min, 15 mls/hr Documented By: WRS Co-signed By: CB Titration: 01/30/25 16:46 Dose: 0.06 mcg/kg/min, 11.2 mls/hr Documented By: WRS Co-signed By: CB Titration: 01/30/25 16:01 Dose: 0.04 mcg/kg/min, 7.5 mls/hr Documented By: WRS Co-signed By: CB Titration: 01/30/25 15:24 Dose: 0.02 mcg/kg/min, 3.7 mls/hr Documented By: WRS Co-signed By: CB Titration: 01/30/25 06:35 Dose: 0 mcg/kg/min, 0 mls/hr Documented By: CLC Co-signed By: MNM Titration: 01/30/25 06:05 Dose: 0.01 mcg/kg/min, 1.9 mls/hr Documented By: CLC Co-signed By: MNM Titration: 01/30/25 05:07 Dose: 0.03 mcg/kg/min, 5.6 mls/hr Documented By: CLC Co-signed By: MNM Titration: 01/30/25 03:35 Dose: 0.05 mcg/kg/min, 9.4 mls/hr Documented By: CLC Co-signed By: MNM Titration: 01/29/25 23:17 Dose: 0 mcg/kg/min, 0 mls/hr Documented By: CLC Co-signed By: MNM Titration: 01/29/25 22:50 Dose: 0.02 mcg/kg/min, 3.7 mls/hr Documented By: CLC Co-signed By: MNM Titration: 01/29/25 22:16 Dose: 0.04 mcg/kg/min, 7.5 mls/hr Documented By: CLC Co-signed By: MNM Titration: 01/29/25 21:30 Dose: 0.06 mcg/kg/min, 11.2 mls/hr Documented By: CLC Co-signed By: MNM Titration: 01/29/25 18:51 Dose: 0.08 mcg/kg/min, 15 mls/hr Documented By: WRS Co-signed By: CLC Titration: 01/29/25 18:45 Dose: 0.08 mcg/kg/min, 15 mls/hr Documented By: WRS Co-signed By: DAKOTAH Titration: 01/29/25 17:30 Dose: 0.1 mcg/kg/min, 18.7 mls/hr Documented By: WRS Co-signed By: DAKOTAH Titration: 01/29/25 14:46 Dose: 0.12 mcg/kg/min, 22.5 mls/hr Documented By: SRL Co-signed By: MOSHE Titration: 01/29/25 14:14 Dose: 0.09 mcg/kg/min, 16.8 mls/hr Documented By: SRL Co-signed By: MMG Titration: 01/29/25 14:01 Dose: 0.07 mcg/kg/min, 13.1 mls/hr Documented By: SRL Co-signed By: MMG Admin: 01/29/25 13:48 Dose: 0.05 mcg/kg/min, 9.4 mls/hr Documented By: SRL Co-signed By: MR Sodium Chloride (Nss) 500 mls @ 999 mls/hr IV .Q31M ONE Stop: 01/29/25 14:16 Last Infusion: 01/29/25 13:50 Dose: Infused Documented By: Admin: 01/29/25 13:36 Dose: 999 mls/hr Documented By: SRL Parenteral Electrolytes (Plasma-Lyte A Ph 7.4) 1,000 mls @ 999 mls/hr IV .Q1H1M ONE Stop: 01/29/25 15:45 Last Admin: 01/29/25 16:56 Dose: Not Given Documented By: WRS Sodium Bicarbonate 150 meq/ (Dextrose) 1,150 mls @ 150 mls/hr IV .Q7H40M MEGAN Stop: 02/28/25 14:59 Last Infusion: 01/30/25 10:38 Dose: Infused Documented By: Admin: 01/30/25 09:42 Dose: 150 mls/hr Documented By: Infusion: 01/30/25 09:42 Dose: Infused Documented By: Admin: 01/30/25 00:44 Dose: 150 mls/hr Documented By: Infusion: 01/30/25 00:34 Dose: Infused Documented By: Admin: 01/29/25 16:53 Dose: 150 mls/hr Documented By: SAMANTHA Cefepime HCl (Maxipime 2000mg) 1,000 mg in 10 mls @ 5 mls/min IV Q12H [facility]; Protocol Stop: 02/08/25 22:59 Last Admin: 01/30/25 00:05 Dose: 5 mls/min Documented By: ALEISHA Sodium Chloride (Nss) 500 mls @ 999 mls/hr IV .Q31M ONE Stop: 01/29/25 16:46 Last Admin: 01/29/25 16:56 Dose: Not Given Documented By: SAMANTHA Sodium Chloride (Nss) 1,000 mls @ 100 mls/hr IV .Q10H [facility] Stop: 01/30/25 16:15 Last Admin: 01/29/25 16:56 Dose: Not Given Documented By: SAMANTHA Magnesium Sulfate/Dextrose (Magnesium Sulfate / D5w) 1 gm in 100 mls @ 50 mls/hr IV Q2H MEGAN Stop: 01/30/25 03:44 Last Infusion: 01/30/25 05:08 Dose: Infused Documented By: Admin: 01/30/25 01:57 Dose: 50 mls/hr Documented By: Infusion: 01/30/25 01:57 Dose: Infused Documented By: Admin: 01/30/25 00:05 Dose: 50 mls/hr Documented By: CLC Potassium Phosphate 15 mmol/ (Sodium Chloride) 255 mls @ 88 mls/hr IV ONE ONE Stop: 01/30/25 10:08 Last Infusion: 01/30/25 10:25 Dose: Infused Documented By: Admin: 01/30/25 07:25 Dose: 88 mls/hr Documented By: SAMANTHA Lactated Ringer's (Lr) 1,000 mls @ 150 mls/hr IV .Q6H40M MEGAN Stop: 01/31/25 10:44 Last Infusion: 01/31/25 11:10 Dose: Infused Documented By: Admin: 01/31/25 07:10 Dose: 150 mls/hr Documented By: Infusion: 01/31/25 07:10 Dose: Infused Documented By: Admin: 01/31/25 00:38 Dose: 150 mls/hr Documented By: Infusion: 01/31/25 00:23 Dose: Infused Documented By: Admin: 01/30/25 17:42 Dose: 150 mls/hr Documented By: Infusion: 01/30/25 17:42 Dose: Infused Documented By: Admin: 01/30/25 11:06 Dose: 150 mls/hr Documented By: SAMANTHA Potassium Chloride (K Arnie / Wtr) 10 meq in 100 mls @ 100 mls/hr IV Q1H MEGAN Stop: 01/31/25 10:14 Last Infusion: 01/31/25 11:10 Dose: Infused Documented By: Admin: 01/31/25 10:12 Dose: 100 mls/hr Documented By: Infusion: 01/31/25 10:12 Dose: Infused Documented By: Admin: 01/31/25 09:02 Dose: 100 mls/hr Documented By: Infusion: 01/31/25 09:02 Dose: Infused Documented By: Infusion: 01/31/25 08:51 Dose: 100 mls/hr Documented By: Admin: 01/31/25 07:45 Dose: 75 mls/hr Documented By: Infusion: 01/31/25 07:45 Dose: Infused Documented By: Admin: 01/31/25 06:31 Dose: 75 mls/hr Documented By: CLC Magnesium Sulfate/Dextrose (Magnesium Sulfate / D5w) 1 gm in 100 mls @ 50 mls/hr IV ONE ONE Stop: 01/31/25 08:21 Last Infusion: 01/31/25 08:40 Dose: Infused Documented By: Admin: 01/31/25 06:31 Dose: 50 mls/hr Documented By: CLC Fluconazole (Diflucan) 200 mg in 100 mls @ 100 mls/hr IV TODAY@1015,1115 MEGAN Stop: 01/31/25 12:14 Last Infusion: 01/31/25 12:03 Dose: Infused Documented By: Admin: 01/31/25 11:08 Dose: 100 mls/hr Documented By: Infusion: 01/31/25 11:08 Dose: Infused Documented By: Admin: 01/31/25 10:23 Dose: 100 mls/hr Documented By: SAMANTHA Calcium Gluconate 1,000 mg/ (Sodium Chloride) 60 mls @ 240 mls/hr IV Q15M MEGAN Stop: 01/31/25 10:44 Last Infusion: 01/31/25 11:10 Dose: Infused Documented By: Admin: 01/31/25 10:54 Dose: 240 mls/hr Documented By: Infusion: 01/31/25 10:54 Dose: Infused Documented By: Admin: 01/31/25 10:42 Dose: 240 mls/hr Documented By: SAMANTHA Potassium Chloride (K Arnie / Wtr) 10 meq in 100 mls @ 100 mls/hr IV Q1H MEGAN; Protocol Stop: 02/01/25 09:14 Last Infusion: 02/01/25 09:30 Dose: Infused Documented By: Admin: 02/01/25 08:31 Dose: 100 mls/hr Documented By: Infusion: 02/01/25 08:31 Dose: Infused Documented By: Admin: 02/01/25 07:31 Dose: 100 mls/hr Documented By: Infusion: 02/01/25 07:30 Dose: Infused Documented By: Admin: 02/01/25 06:30 Dose: 100 mls/hr Documented By: Infusion: 02/01/25 06:30 Dose: Infused Documented By: Admin: 02/01/25 05:30 Dose: 100 mls/hr Documented By: SCOTT Magnesium Sulfate/Dextrose (Magnesium Sulfate / D5w) 1 gm in 100 mls @ 50 mls/hr IV Q2H MEGAN Stop: 02/01/25 09:14 Last Infusion: 02/01/25 09:28 Dose: Infused Documented By: Admin: 02/01/25 07:12 Dose: 50 mls/hr Documented By: Infusion: 02/01/25 07:12 Dose: Infused Documented By: Admin: 02/01/25 05:30 Dose: 50 mls/hr Documented By: SCOTT Calcium Gluconate () 1,000 mg in 60 mls @ 240 mls/hr IV 1000 MEGAN Stop: 02/01/25 10:14 Last Infusion: 02/01/25 10:24 Dose: Infused Documented By: Admin: 02/01/25 10:06 Dose: 240 mls/hr Documented By: VALERIA Caspofungin 70 mg/ Sodium (Chloride) 260 mls @ 260 mls/hr IV ONCE ONE; Protocol Stop: 02/01/25 13:59 Last Infusion: 02/01/25 15:26 Dose: Infused Documented By: Admin: 02/01/25 14:05 Dose: 260 mls/hr Documented By: SAMANTHA Insulin Aspart (Insulin Aspart Per Unit Charge) 0 units SC ACHS [facility] Stop: 02/28/25 21:14 Last Admin: 01/30/25 20:11 Dose: 1 units Documented By: ALEISHA Co-signed By: DILCIA Admin: 01/30/25 16:46 Dose: 1 units Documented By: SAMANTHA Co-signed By: VALERIA Admin: 01/30/25 11:55 Dose: 1 units Documented By: SAMANTHA Co-signed By: VALERIA Admin: 01/30/25 07:52 Dose: 4 units Documented By: SAMANTHA Co-signed By: MTP Admin: 01/29/25 21:16 Dose: 2 units Documented By: ALEISHA Co-signed By: DESHAWN Insulin Aspart (Insulin Aspart Per Unit Charge) 0 units SC Q6 [facility] Stop: 03/02/25 06:14 Last Admin: 02/01/25 05:08 Dose: Not Given Documented By: Admin: 01/31/25 23:55 Dose: Not Given Documented By: Admin: 01/31/25 16:23 Dose: Not Given Documented By: Admin: 01/31/25 13:23 Dose: Not Given Documented By: Admin: 01/31/25 06:21 Dose: Not Given Documented By: ALEISHA Magnesium Oxide (Magnesium Oxide 400 Mg Tab) 400 mg PO NOW ONE Stop: 01/31/25 05:16 Last Admin: 01/31/25 06:06 Dose: 400 mg Documented By: ALEISHA Magnesium Oxide (Magnesium Oxide 400 Mg Tab) 400 mg PO NOW ONE Stop: 01/31/25 19:02 Last Admin: 01/31/25 20:06 Dose: 400 mg Documented By: SCOTT Westbrookaneous (Icu Protocol For Hyperglycemia) 1 each N/A ACHS MEGAN Stop: 01/31/25 20:59 Last Admin: 01/30/25 07:28 Dose: Not Given Documented By: Admin: 01/29/25 21:03 Dose: 1 each Documented By: ALEISHA Sethicellaneous ([facility] Electrolyte Replacement Protocol) 1 each N/A BID@06,18 MEGAN; Protocol Stop: 02/06/25 17:59 Last Admin: 02/01/25 05:08 Dose: 1 each Documented By: Admin: 01/31/25 19:01 Dose: 1 each Documented By: Admin: 01/31/25 06:06 Dose: 1 each Documented By: Admin: 01/30/25 18:59 Dose: 1 each Documented By: SAMANTHA Norepinephrine Bitartrate (Norepinephrine/D5w 4 Mg/250 Ml) Confirm Administered Dose 4 mg IV .STK-MED ONE Stop: 01/29/25 13:31 Last Admin: 01/29/25 13:46 Dose: Not Given Documented By: SRL Potassium Chloride (Potassium Chloride 20 Meq/15 Ml Udc) 40 meq PO Q2H [facility] Stop: 01/30/25 03:00 Last Admin: 01/30/25 00:05 Dose: 40 meq Documented By: CLC Potassium Chloride (Potassium Chloride Crtab 20 Meq Tabcr) 40 meq PO NOW ONE Stop: 01/30/25 03:01 Last Admin: 01/30/25 03:14 Dose: 40 meq Documented By: CLC Potassium Chloride (Potassium Chloride Crtab 20 Meq Tabcr) 20 meq PO NOW ONE Stop: 01/30/25 19:01 Last Admin: 01/30/25 19:59 Dose: 20 meq Documented By: CLC Potassium Chloride (Potassium Chloride Crtab 20 Meq Tabcr) 20 meq PO Q4H MEGAN Stop: 01/31/25 09:16 Last Admin: 01/31/25 06:06 Dose: 20 meq Documented By: CLC Sodium Bicarbonate (Sodium Bicarb 8.4% Inj 50 Meq/50 Ml Syr) 50 meq IV NOW STA Stop: 01/29/25 14:48 Last Admin: 01/29/25 16:23 Dose: 50 meq Documented By: S Imaging Data Radiologist's Impression: Chest X-Ray 01/29/25 10:44 XR chest 1V portable CLINICAL HISTORY: Sepsis COMPARISON STUDY: 11/23/2024 FINDINGS: Heart size and pulmonary vasculature are normal. There is a possible small area of patchy opacity right mid to upper lung. No effusion, consolidation, or pneumothorax otherwise. IMPRESSION: Artifact versus early pneumonia on the right. ACT 112: Negative or not required by law. Electronically signed by: Santos Tapia M.D. 01/29/2025 11:16 AM Abdomen/Pelvis CT 01/29/25 11:[address] WITHOUT CONTRAST CT DOSE: 403.19 mGy.cm HISTORY: R flank pain, ureteral stent, incr pain, low BP TECHNIQUE: Multiaxial CT images of the abdomen and pelvis were performed without contrast. A dose lowering technique was utilized adhering to the principles of ALARA. COMPARISON STUDY: 11/23/2024 FINDINGS: ABDOMEN: Liver, gallbladder, spleen, pancreas, and adrenal glands have an unremarkable non-IV contrasted appearance. There are bilateral ureteral stents. They have migrated slightly proximally compared to the prior exam, but the distal pigtails remain within the urinary bladder. There is no hydronephrosis. There are multiple small bilateral renal calculi. No ureteral calculi seen. There are atherosclerotic calcifications. No abdominal aortic aneurysm. Pelvis: Urinary bladder is nondistended. No bowel inflammation or obstruction is seen. Stable small fat-containing midline low ventral hernia. No free fluid or free air. No enlarged adenopathy. Osseous structures: Stable hardware at the proximal femurs. There is lumbar degenerative disc disease. IMPRESSION: 1. No acute findings. 2. Bilateral ureteral stents have migrated slightly proximally compared to the prior exam but the distal pigtails remain within the urinary bladder and there is no hydronephrosis. 3. Otherwise as described. ACT 112: Negative or not required by law. The above report was generated using voice recognition software. It may contain grammatical, syntax or spelling errors. Electronically signed by: Santos Tapia M.D. 01/29/2025 12:42 PM Discharge Plan Visit Data Chief Complaint: Urinary Symptoms Stated Complaint: POSSIBLE UTI, KIDNEY INFECTION ED Provider: Christiane Leal Discharge Problem: Ureteral stent present, Fever, Hypotension Patient Disposition: Admitted As Inpatient Discharge Instructions Interventions: ED Discharge Assessment Last Done: 01/29/25 15:35 Discharge Problem: Fever Qualifiers: Fever type: unspecified Qualified Code(s): R50.9 - Fever, unspecified Hypotension Qualifiers: Hypotension type: unspecified hypotension type Qualified Code(s): I95.9 - Hypotension, unspecified
[2025-01-29 11:17] LABS: Basophils # (auto) 0.06 K/uL (0.00-0.20); Basophils % (auto) 0.5 %; Hematocrit (blood only) 32.3 % (37.0-47.0); Hemoglobin 10.3 g/dl (12.0-16.0); Immature Granulocytes # (auto) 0.08 K/uL (0.01-0.20); Immature Granulocytes % (auto) 0.6 %; Lymphocytes # (auto) 0.58 K/uL (1.20-3.40); Lymphocytes % (auto) 4.4 %; Mean Corpuscular Hemoglobin 29.6 pg (25.0-34.0); Mean Corpuscular Hgb Conc 31.9 g/dL (32.0-36.0); Mean Corpuscular Volume 92.8 fL (80.0-100.0); Mean Platelet Volume 8.8 fL (9.4-12.4); Monocytes # (auto) 1.24 K/uL (0.11-0.59); Monocytes % (auto) 9.4 %; Neutrophils # (auto) 11.27 K/uL (1.40-6.50); Neutrophils % (auto) 85.1 %; Platelet Count 444 K/uL (130-400); RDW Coefficient of Variation 16.7 % (11.5-14.5); RDW Standard Deviation 56.5 fL (36.4-46.3); Red Blood Count 3.48 M/uL (4.20-5.40); White Blood Count 13.23 K/ul (4.8-10.8)
--- NOTE | 2025-01-29 11:18 | XRay Report ---
XR chest 1V portable CLINICAL HISTORY: Sepsis COMPARISON STUDY: 11/23/2024 FINDINGS: Heart size and pulmonary vasculature are normal. There is a possible small area of patchy o pacity right mid to upper lung. No effusion, consolidation, or pneumothorax otherwise. IMPRESSION: Artifact versus early pneumonia on the right. ACT 112: Negative or not required by law. Electronically signed by: Santos Tapia M.D. 01/29/2025 11:16 AM
[2025-01-29] MEDS: SODIUM CHLORIDE 0.9% 1,000 ML IV SCH ×2 (11:23→16:56)
[2025-01-29] MEDS: CEFEPIME 2000MG 2,000 MG/20 ML SYR IV STA (11:23)
[2025-01-29] MEDS: ACETAMINOPHEN 1,000 MG/100 ML VIAL IV STA (11:23)
[2025-01-29 11:38] LABS: Alanine Aminotransferase 6 U/L (7-52); Albumin Level 3.4 gm/dl (3.4-5.0); Alkaline Phosphatase 104 U/L (34-104); Anion Gap 8 (3-11); Aspartate Aminotransferase 9 U/L (13-39); BUN Creatinine Ratio 14.9 (10-20); Bilirubin,Total 0.4 mg/dl (0.2-1.0); Blood Urea Nitrogen 25 mg/dl (6-23); Calcium 8.9 mg/dl (8.6-10.3); Carbon Dioxide 12 mmol/L (21-32); Chloride 113 mmol/L (98-107); Glucose 143 mg/dl (70-99(Fasting)); Magnesium 2.1 mg/dl (1.7-2.4); Potassium 4.6 mmol/L (3.5-5.1); Sodium 133 mmol/L (136-145); Total Protein 7.2 gm/dl (6.0-8.3)
[2025-01-29 11:43] LABS: Troponin I High Sensitivity < 2.3 pg/ml (0-14)
[2025-01-29] MEDS: fentaNYL citrate PF 100 MCG/2 ML VIAL IV STA (11:59)
[2025-01-29] MEDS: SODIUM CHLORIDE 0.9% 500 ML IV ONE ×3 (11:59→16:56)
--- NOTE | 2025-01-29 12:44 | CT Scan Report ---
ABDOMEN AND PELVIS CT WITHOUT CONTRAST CT DOSE: 403.19 mGy.cm HISTORY: R flank pain, ureteral stent, incr pain, low BP TECHNIQUE: Multiaxial CT images of the abdomen and pelvis were performed without contrast. A dose lo wering technique was utilized adhering to the principles of ALARA. COMPARISON STUDY: 11/23/2024 FINDINGS: ABDOMEN: Liver, gallbladder, spleen, pancreas, and adrenal glands have an unremarkable non-IV contras obi appearance. There are bilateral ureteral stents. They have migrated slightly proximally compared to the prior exam, but the distal pigtails remain within the urinary bladder. There is no hydronephro sis. There are multiple small bilateral renal calculi. No ureteral calculi seen. There are atheroscle rotic calcifications. No abdominal aortic aneurysm. Pelvis: Urinary bladder is nondistended. No bowel inflammation or obstruction is seen. Stable small f at-containing midline low ventral hernia. No free fluid or free air. No enlarged adenopathy. Osseous structures: Stable hardware at the proximal femurs. There is lumbar degenerative disc disease . IMPRESSION: 1. No acute findings. 2. Bilateral ureteral stents have migrated slightly proximally compared to the prior exam but the dis juancho pigtails remain within the urinary bladder and there is no hydronephrosis. 3. Otherwise as described. ACT 112: Negative or not required by law. The above report was generated using voice recognition software. It may contain grammatical, syntax o r spelling errors. Electronically signed by: Santos Tapia M.D. 01/29/2025 12:42 PM
[2025-01-29 13:15] LABS: Appearance Urine Turbid (Clear); Bacteria Urine Automated 2+ (None Seen); Bilirubin Urine Negative (Negative); Blood Urine 3+ (Negative); Color Urine Orange; Glucose Urine UA Negative (Negative); Ketones Urine Negative (Negative); Leukocyte Esterase Urine 3+ (Negative); Nitrite Urine Negative (Negative); Protein Urine 2+ (Negative); RBC Urine Automated >20 /hpf (0-2); Specific Gravity Urine 1.012 (1.000-1.030); Urobilinogen Urine Negative (Negative); WBC Urine Automated >50 /hpf (0-5); pH Urine 5.5 (4.5-7.5)
--- NOTE | 2025-01-29 13:22 | History & Physical Report ---
Date of Service January 29, 2025 Assessment & Plan (1) Septic shock: (2) Complicated urinary tract infection: Plan: 84-year-old female with history of hydronephrosis secondary to nephrolithiasis, ureteral stent placement last September 2024, exchanged January 13, 2025, other problems noted below presenting with Right lower back/flank pain since yesterday. Septic shock Recurrent UTI in the setting of nephrolithiasis, ureteral stents Received 2 L of IV fluid bolus Blood pressure remains low, MAP 50s Started on Levophed Follow-up urine culture and blood cultures History of recurrent Klebsiella UTI, most recent November 2021 5 Similar presentation back in November 2024 IV cefepime IV NSS Urologist Notified-no plans for Urgent stent exchange today Dr. Sumner, dye house hand notified as well Questionable pneumonia on chest x-ray: Patient denies respiratory symptoms. 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 Primary Care Provider: Indu Ambrocio 84-year-old female with history of hydronephrosis secondary to nephrolithiasis, ureteral stent placement last September 2024, exchanged January 13, 2025, other problems noted below presenting with Right lower back/flank pain since yesterday. Patient was admitted to [facility] early November 2024 for septic shock secondary to complicated UTI in the setting of nephrolithiasis, ureteral stents. Urine culture grew Klebsiella. She has had multiple episodes of UTI secondary to Klebsiella last year as well. On January 13, 2025, patient underwent a right lithotripsy with ureteral stent exchange by Dr. Joshua. Yesterday she followed up with urology clinic due to urinary symptoms, urine culture obtained, and was sent on cefuroxime. At home, patient's urinary symptoms persisted including back pain. At the ER, patient was admitted with blood pressure of 87/59, heart rate 90s afe brile. CT abdomen and pelvis showed bilateral ureteral stents have migrated slightly proximally compared to the prior exam but the distal pigtails remain within the urinary bladder and there is no hydronephrosis. Urinalysis: Pending Lactic acid normal She was given 1.5 L of IV NSS bolus, cefepime Patient's blood pressure trended down at the ER. Systolic BP 79/44, additional 500cc fluid bolus ordered and Levophed ordered to be started. Patient seen resting in bed, comfortable, not in distress. Reports right sided flank pain, and dysuria. Denies dizziness, chest pain, shortness of breath, nausea. Denies cough, fever and chills, sputum production Allergies Allergy/AdvReac Type Severity Reaction Status Date / Time influenza virus vaccine, Allergy Severe [place] Verified 01/29/25 12:51 specific [place] Syndrome Sulfa (Sulfonamide Allergy Unknown Unknown Verified 01/29/25 12:51 Antibiotics) cephalexin AdvReac Mild Nausea Verified 01/29/25 12:51 Home Medications Medication Instructions Recorded Confirmed Type ferrous sulfate 325 mg (65 mg 325 mg PO QDL 07/17/18 01/29/25 History iron) tablet (iron) raloxifene 60 mg tablet 60 mg PO QAM 01/20/20 01/29/25 History cyanocobalamin (vitamin B-12) 500 500 mcg PO QAM 12/20/20 01/29/25 History mcg tablet (Vitamin B-12) cranberry extract 500 mg capsule 500 mg PO QAM 05/08/21 01/29/25 History (Cranberry Concentrate) potassium chloride 10 mEq 40 meq PO BIDWMEAL 04/09/22 01/29/25 History tablet,extended release acetaminophen 500 mg tablet 1,000 mg PO Q8 PRN Pain 02/05/24 01/29/25 History loperamide 2 mg capsule 2 mg PO Q6H PRN loose stool #30 12/04/24 01/29/25 Rx caps Bifidobacterium infantis 4 mg 4 mg PO QDL 01/04/25 01/29/25 History capsule (Align (B.infantis)) cholecalciferol (vitamin D3) 25 25 mcg PO QDL 01/29/25 01/29/25 History mcg (1,000 unit) tablet (Vitamin D3) mirtazapine 7.5 mg tablet 7.5 mg PO HS 01/29/25 01/29/25 History Past Med/Surg History Problem List Encounter for preoperative assessment (Acute) Bilateral kidney stones (Chronic) Depression Metabolic acidosis Ureteral stent present (Acute) Periprosthetic fracture around internal prosthetic right knee joint Medical History Depression Hypotension States Metoprolol on hold Hx of sepsis Sepsis/MALINA r/t UTI, hospitalized at [facility] 10/2024 History of colitis Neuropathy involving both lower extremities Hydronephrosis concurrent with and due to calculi of kidney and ureter History of seizure Single episode s/p benign brain tumor excision (1998) No issues since History of right breast cancer (2000) s/p radiation Kidney stones Anemia Chronic Hx of Guillain-[place] syndrome (1998) After flu shot (1998) Mild residual LE neuropathy Osteoarthritis 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 Surgical History History of postoperative nausea and vomiting History of open reduction and internal fixation (ORIF) procedure right femur fx - C - 09/2024 Hx of lithotripsy (01/18/21) S/P cystoscopy with ureteral stent placement Multiple History of tooth extraction History of colonoscopy History of appendectomy History of total knee replacement R/L (2020) History of hip surgery right and left due to falling History of brain surgery (1998) 1998; benign tumor excision Hx of hysterectomy Hx of lumpectomy Right breast- had xrt Family History Mother Macular degeneration Father Kidney stone Diabetes Social History Smoking Status: Never smoker Tobacco Type: Declines Second Hand Exposure: No; Do You Dip or Chew Tobacco: No; Hx Alcohol Use: No Hx Substance Use: No Preferred Language: Greenlandic Communication Ability: Effective Visual Impairment: No Limitations Syrup Maker Cook Required: No Beliefs That Will Affect Care: None marital status: / Current Living Situation: Alone Current Living Situation Comment: son Feels Safe at Home: Yes Assistive Devices: Denture - Upper, Denture - Lower, Hearing Aid - Bilateral and Walker Review of Systems Review of Systems: all noted and negative except for above Physical Exam Physical Exam: General- oriented x 3, not in distress, speaks in sentences with no effort or accessory muscle use Head- atraumatic Eyes- PERRL, EOMI, anicteric ENT- oropharynx clear Neck- supple, no JVD, no adenopathy, no thyromegaly; carotids +2/2, no bruits ap preciated Lungs- clear to auscultation bilaterally, no rales/wheezes Heart- normal rate, regular rhythm; no murmur, no gallop, no rub appreciated Abdomen- normal bowel sounds, nondistended, soft, nontender, no masses or hepatosplenomegaly Extremities- no pretibial edema, no calf tenderness; peripheral pulses intact Neuro- alert, oriented x 3; CN 2-12 grossly intact; motor 5/5 bilaterally;sen sation 100% on all extremities; no other gross focal neurologic deficits Skin- warm & dry Results & Data Results & Data Vital Signs (Past 12 Hours) Vital Signs Temp Pulse Pulse Resp BP BP Pulse Ox 01/29/25 12:30 37 C 99 H 17 89/62 L 98 01/29/25 12:15 91 H 16 88/47 L 98 01/29/25 12:00 96 H 16 82/49 L 98 01/29/25 11:44 93 H 14 84/43 L 97 01/29/25 11:29 97 H 16 88/49 L 97 01/29/25 11:14 88 17 87/59 L 97 01/29/25 10:59 37.5 C 94 H 20 125/80 98 01/29/25 10:52 84 01/29/25 10:44 97 H 20 87/59 L 97 01/29/25 10:44 97 H 20 97 01/29/25 10:08 36.8 C 96 H 18 94/60 L 96 O2 Del Method 01/29/25 12:30 Room Air 01/29/25 12:15 Room Air 01/29/25 12:00 Room Air 01/29/25 11:44 Room Air 01/29/25 11:29 Room Air 01/29/25 11:14 Room Air 01/29/25 10:59 Room Air 01/29/25 10:52 01/29/25 10:44 Room Air 01/29/25 10:44 Room Air 01/29/25 10:08 Room Air all noted and reviewed including below
[2025-01-29] MEDS ORDERED: STAT IV Infusion **Titration per Protocol STA (13:24)
[2025-01-29] MEDS: NOREPINEPHRINE/D5W 4 MG/250 ML IV ONE (13:46)
[2025-01-29] MEDS: NOREPINEPHRINE/D5W 4 MG/250 ML PLCT IV SCH (13:48)
[2025-01-29] MEDS ORDERED: HYDROCORTISONE SOD SUCCINATE 100 MG/2 ML VIAL IV SCH (14:45)
--- NOTE | 2025-01-29 14:46 | Critical Care Consultation ---
Date of Consultation January 29, 2025 Assessment & Plan (1) Septic shock: Reason Critically Ill: 84-year-old female presents to the ICU with septic shock source, status post bilateral ureteral stent exchange with urology. She is currently requiring vasopressor support with Levophed drip Neuro -no current issues. Continue to follow clinically. Cardiac -presumptive septic shock secondary to Klebsiella UTI. Consider central line placement if fails to improve. Given prior relative adrenal insufficiency, will recheck cortisol and initiate with hydrocortisone and Florinef. Patient has received 6 cc/kg ideal body weight but may require additional fluids. Respiratory -no current issues GI - N.p.o. for now RENAL/LYTES -acute renal failure. The patient was seen by nephrology previously. Suspect some component of ATN versus concomitant prerenal azotemia. Continue to follow currently. Await VBG. May require bicarb. This may improve blood pressure control as well -bilateral stents in place. Urology not planning any intervention currently. ENDO - No history of diabetes or thyroid disease. ICU hyperglycemic protocol HEME - Hemoglobin low. No evidence of blood loss. Will follow clinically at this point time ID - Sepsislikely due to urinary source. Previous UTIs with Klebsiella. Urine culture and blood cultures currently pending. Continue cefepime LINES/IV ACCESS - Peripheral IVs. Consider CBC if vasopressor requirements increase DVT PROPHYLAXIS - SCDs, hold anticoagulation for now following ureteral stent exchange I have personally spent 50 minutes of critical care time in the direct management of this patient. This is a life/limb threatening event. This includes time spent evaluating patient, direct bedside care, chart review, placing orders, interpretation of diagnostic studies, discussion with consultants, patient, and family members, as well as other required patient management activities. This time is exclusive of all separately billable procedures, and teaching time and separate from and in addition to any other critical care service time. Thank you for allowing us to participate in the care of this patient. Please refer to my attending physician's documentation for any further recommendations. (2) Urinary tract infection: (3) Metabolic acidosis: History of Present Illness History of Present Illness Asked by hospitalist to assist in evaluation and management this patient mated with presumptive urosepsis. History is obtained from discussion with the patient as well as review of the electronic medical record. Patient is an 84-year-old female with a history of bilateral ureteral stents. She had a recent stent exchange performed on 01/13. She has a prior history of Klebsiella. She presented to the emergency room today with complaints of back discomfort. She is on some oral antibiotics. Urine culture was obtained yesterday. She denies any chest pain or palpitations. No shortness of breath. No nausea or vomiting. In the emergency room the patient was noted to have a leukocytosis. Her lactate was normal however her bicarb is inappropriately low. Blood gas has not been obtained. She received 1.5 L of crystalloid in the emergency room and was started on norepinephrine through peripheral IV due to persistent hypotension. She received cefepime in the emergency room and was admitted to the hospitalists. We are consulted for additional critical care management. Of note, the patient had similar presentation in October and at that point time her random cortisol was low at 14. Allergies Allergy/AdvReac Type Severity Reaction Status Date / Time influenza virus vaccine, Allergy Severe Gillean Verified 01/29/25 12:51 specific Hol[place] Syndrome Sulfa (Sulfonamide Allergy Unknown Unknown Verified 01/29/25 12:51 Antibiotics) cephalexin AdvReac Mild Nausea Verified 01/29/25 12:51 Home Medications Medication Instructions Recorded Confirmed Type ferrous sulfate 325 mg (65 mg 325 mg PO QDL 07/17/18 01/29/25 History iron) tablet (iron) raloxifene 60 mg tablet 60 mg PO QAM 01/20/20 01/29/25 History cyanocobalamin (vitamin B-12) 500 500 mcg PO QAM 12/20/20 01/29/25 History mcg tablet (Vitamin B-12) cranberry extract 500 mg capsule 500 mg PO QAM 05/08/21 01/29/25 History (Cranberry Concentrate) potassium chloride 10 mEq 40 meq PO BIDWMEAL 04/09/22 01/29/25 History tablet,extended release acetaminophen 500 mg tablet 1,000 mg PO Q8 PRN Pain 02/05/24 01/29/25 History loperamide 2 mg capsule 2 mg PO Q6H PRN loose stool #30 12/04/24 01/29/25 Rx caps Bifidobacterium infantis 4 mg 4 mg PO QDL 01/04/25 01/29/25 History capsule (Align (B.infantis)) cholecalciferol (vitamin D3) 25 25 mcg PO QDL 01/29/25 01/29/25 History mcg (1,000 unit) tablet (Vitamin D3) mirtazapine 7.5 mg tablet 7.5 mg PO HS 01/29/25 01/29/25 History Patient History Medical History Anemia Chronic Depression History of colitis History of right breast cancer (2000) s/p radiation History of seizure Single episode s/p benign brain tumor excision (1998) No issues since 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 Hx of sepsis Sepsis/MALINA r/t UTI, hospitalized at [facility] 10/2024 Hydronephrosis concurrent with and due to calculi of kidney and ureter Hypotension States Metoprolol on hold Kidney stones Neuropathy involving both lower extremities Osteoarthritis Surgical History History of appendectomy History of brain surgery (1998) 1998; benign tumor excision History of colonoscopy History of hip surgery right and left due to falling History of open reduction and internal fixation (ORIF) procedure right femur fx - C - 09/2024 History of postoperative nausea and vomiting History of tooth extraction History of total knee replacement R/L (2020) Hx of hysterectomy Hx of lithotripsy (01/18/21) Hx of lumpectomy Right breast- had xrt S/P cystoscopy with ureteral stent placement Multiple Family History Mother Macular degeneration Father Kidney stone Diabetes Social History Smoking Status: Never smoker Tobacco Type: Declines Second Hand Exposure: No; Do You Dip or Chew Tobacco: No; Hx Alcohol Use: No Hx Substance Use: No Preferred Language: Turkish Communication Ability: Effective Visual Impairment: No Limitations Endocrinology Teacher Required: No Beliefs That Will Affect Care: None marital status: / Current Living Situation: Alone Current Living Situation Comment: son Feels Safe at Home: Yes Assistive Devices: Denture - Upper, Denture - Lower, Hearing Aid - Bilateral and Walker Review of Systems Review of Systems: Please refer to admission H&P. No additions or deletions Physical Exam Constitutional: WD/WN, vitals as above Neck: trachea midline, no thyromegaly Respiratory: normal respiratory effort, lungs clear to auscultation Cardiovascular: RRR, no murmur, no edema Gastrointestinal (Abdomen): normal bowel sounds, soft, nontender, no hepatosplenomegaly Musculoskeletal: Extremities: extremities normal to inspection Skin: no rashes, warm and dry Neurologic: Nonfocal exam Lymphatic: no cervical lymphadenopathy Results & Data Results & Data Vital Signs (Past 12 Hours) Vital Signs Temp Pulse Pulse Resp BP BP Pulse Ox 01/29/25 14:30 89 16 98/57 L 97 01/29/25 14:22 89 18 88/50 L 96 01/29/25 14:15 84 12 74/42 L 96 01/29/25 14:00 85 14 79/46 L 97 01/29/25 13:45 86 14 88/49 L 98 01/29/25 13:30 95 H 18 79/44 L 98 01/29/25 12:30 37 C 99 H 17 89/62 L 98 01/29/25 12:15 91 H 16 88/47 L 98 01/29/25 12:00 96 H 16 82/49 L 98 01/29/25 11:44 93 H 14 84/43 L 97 01/29/25 11:29 97 H 16 88/49 L 97 01/29/25 11:14 88 17 87/59 L 97 01/29/25 10:59 37.5 C 94 H 20 125/80 98 01/29/25 10:52 84 01/29/25 10:44 97 H 20 87/59 L 97 01/29/25 10:44 97 H 20 97 01/29/25 10:08 36.8 C 96 H 18 94/60 L 96 O2 Del Method 01/29/25 14:30 Room Air 01/29/25 14:22 Room Air 01/29/25 14:15 Room Air 01/29/25 14:00 Room Air 01/29/25 13:45 Room Air 01/29/25 13:30 Room Air 01/29/25 12:30 Room Air 01/29/25 12:15 Room Air 01/29/25 12:00 Room Air 01/29/25 11:44 Room Air 01/29/25 11:29 Room Air 01/29/25 11:14 Room Air 01/29/25 10:59 Room Air 01/29/25 10:52 01/29/25 10:44 Room Air 01/29/25 10:44 Room Air 01/29/25 10:08 Room Air Critical Care Results & Data Vital Signs (Past 12 Hours) Vital Signs Temp Pulse Pulse Resp BP BP Pulse Ox 01/29/25 14:30 89 16 98/57 L 97 01/29/25 14:22 89 18 88/50 L 96 01/29/25 14:15 84 12 74/42 L 96 01/29/25 14:00 85 14 79/46 L 97 01/29/25 13:45 86 14 88/49 L 98 01/29/25 13:30 95 H 18 79/44 L 98 01/29/25 12:30 37 C 99 H 17 89/62 L 98 01/29/25 12:15 91 H 16 88/47 L 98 01/29/25 12:00 96 H 16 82/49 L 98 01/29/25 11:44 93 H 14 84/43 L 97 01/29/25 11:29 97 H 16 88/49 L 97 01/29/25 11:14 88 17 87/59 L 97 01/29/25 10:59 37.5 C 94 H 20 125/80 98 01/29/25 10:52 84 01/29/25 10:44 97 H 20 87/59 L 97 01/29/25 10:44 97 H 20 97 01/29/25 10:08 36.8 C 96 H 18 94/60 L 96 O2 Del Method 01/29/25 14:30 Room Air 01/29/25 14:22 Room Air 01/29/25 14:15 Room Air 01/29/25 14:00 Room Air 01/29/25 13:45 Room Air 01/29/25 13:30 Room Air 01/29/25 12:30 Room Air 01/29/25 12:15 Room Air 01/29/25 12:00 Room Air 01/29/25 11:44 Room Air 01/29/25 11:29 Room Air 01/29/25 11:14 Room Air 01/29/25 10:59 Room Air 01/29/25 10:52 01/29/25 10:44 Room Air 01/29/25 10:44 Room Air 01/29/25 10:08 Room Air Lab & Micro Results (Past 24 Hours) RBC 3.48 M/uL (4.20-5.40) L 01/29/25 WBC 13.23 K/ul (4.8-10.8) H 01/29/25 Hgb 10.3 g/dl (12.0-16.0) L 01/29/25 Hct 32.3 % (37.0-47.0) L 01/29/25 MCV 92.8 fL (80.0-100.0) 01/29/25 MCH 29.6 pg (25.0-34.0) 01/29/25 MCHC 31.9 g/dL (32.0-36.0) L 01/29/25 RDW Standard Deviation 56.5 fL (36.4-46.3) H 01/29/25 RDW Coefficient of Variation 16.7 % (11.5-14.5) H 01/29/25 Plt Count 444 K/uL (130-400) H 01/29/25 MPV 8.8 fL (9.4-12.4) L 01/29/25 Neutrophils (%) (Auto) 85.1 % 01/29/25 Lymphocytes (%) (Auto) 4.4 % 01/29/25 Monocytes # (Auto) 1.24 K/uL (0.11-0.59) H 01/29/25 Eosinophils # (Auto) 0.00 K/uL (0.00-0.50) 01/29/25 Immature Granulocyte % (Auto) 0.6 % 01/29/25 Neutrophils # (Auto) 11.27 K/uL (1.40-6.50) H 01/29/25 Lymphocytes # (Auto) 0.58 K/uL (1.20-3.40) L 01/29/25 Monocytes # (Auto) 1.24 K/uL (0.11-0.59) H 01/29/25 Eosinophils # (Auto) 0.00 K/uL (0.00-0.50) 01/29/25 Basophils # (Auto) 0.06 K/uL (0.00-0.20) 01/29/25 Immature Granulocyte # (Auto) 0.08 K/uL (0.01-0.20) 5 Na 133 mmol/L (136-145) L 01/29/25 K 4.6 mmol/L (3.5-5.1) 01/29/25 Cl 113 mmol/L (98-107) H 01/29/25 CO2 12 mmol/L (21-32) L 01/29/25 Anion Gap 8 (3-11) 01/29/25 BUN 25 mg/dl (6-23) H 01/29/25 Creatinine 1.68 mg/dl (0.6-1.2) H 01/29/25 BUN/Creatinine Ratio 14.9 (10-20) 01/29/25 Glu 143 mg/dl (70-99(Fasting)) H 01/29/25 Ca 8.9 mg/dl (8.6-10.3) 01/29/25 Total Bilirubin 0.4 mg/dl (0.2-1.0) 01/29/25 Direct Bilirubin 0.0 mg/dl (0-0.2) 01/29/25 AST 9 U/L (13-39) L 01/29/25 ALT 6 U/L (7-52) L 01/29/25 Alkaline Phosphatase 104 U/L (34-104) 01/29/25 TP 7.2 gm/dl (6.0-8.3) 01/29/25 Albumin 3.4 gm/dl (3.4-5.0) 01/29/25 Mg 2.1 mg/dl (1.7-2.4) 01/29/25 10:59 Calcium Level 8.9 mg/dl (8.6-10.3) 01/29/25 10:59 Diagnostic Findings (Past 24 Hours) Chest X-Ray 01/29/25 10:44 XR chest 1V portable CLINICAL HISTORY: Sepsis COMPARISON STUDY: 11/23/2024 FINDINGS: Heart size and pulmonary vasculature are normal. There is a possible small area of patchy opacity right mid to upper lung. No effusion, consolidation, or pneumothorax otherwise. IMPRESSION: Artifact versus early pneumonia on the right. ACT 112: Negative or not required by law. Electronically signed by: Santos Tapia M.D. 01/29/2025 11:16 AM Abdomen/Pelvis CT 01/29/25 11:[address] WITHOUT CONTRAST CT DOSE: 403.19 mGy.cm HISTORY: R flank pain, ureteral stent, incr pain, low BP TECHNIQUE: Multiaxial CT images of the abdomen and pelvis were performed without contrast. A dose lowering technique was utilized adhering to the principles of ALARA. COMPARISON STUDY: 11/23/2024 FINDINGS: ABDOMEN: Liver, gallbladder, spleen, pancreas, and adrenal glands have an unremarkable non-IV contrasted appearance. There are bilateral ureteral stents. They have migrated slightly proximally compared to the prior exam, but the distal pigtails remain within the urinary bladder. There is no hydronephrosis. There are multiple small bilateral renal calculi. No ureteral calculi seen. There are atherosclerotic calcifications. No abdominal aortic aneurysm. Pelvis: Urinary bladder is nondistended. No bowel inflammation or obstruction is seen. Stable small fat-containing midline low ventral hernia. No free fluid or free air. No enlarged adenopathy. Osseous structures: Stable hardware at the proximal femurs. There is lumbar degenerative disc disease. IMPRESSION: 1. No acute findings. 2. Bilateral ureteral stents have migrated slightly proximally compared to the prior exam but the distal pigtails remain within the urinary bladder and there is no hydronephrosis. 3. Otherwise as described. ACT 112: Negative or not required by law. The above report was generated using voice recognition software. It may contain grammatical, syntax or spelling errors. Electronically signed by: Santos Tapia M.D. 01/29/2025 12:42 PM I & O Totals 24 Hours 01/28/25 01/29/25 01/30/25 06:59 06:59 07:59 Intake Total 2104.875 / 2104.875 Output Total 200 / 200 Balance 1904.875 / 1904.875 Cumulative 01/29/25 09:58 thru 01/29/25 14:14 Intake Total 2104.875 Output Total 200 Balance 1904.875 RT Ventilator Mngmt (Last Documented) Ventilator Ordered Settings Respiratory Rate 16 01/29/25 14:30 Ventilator - PT Measurements Respiratory Rate 16 Coding Level of Care Code 10900 CRITICAL CARE 1ST 30-74M Diagnoses Septic shock A41.9; R65.21 Urinary tract infection N39.0 Metabolic acidosis E87.20
[2025-01-29 14:53] LABS: Base Excess VBG -18.3 mEq/L; HCO3 VBG 9 mmol/L; Oxygen Saturation VBG < 60.0 %; PCO2 VBG 27 mmHg (38-50); PO2 VBG 30 mmHg; pH VBG 7.14 (7.36-7.41)
[2025-01-29] MEDS ORDERED: STAT IV/IM STA (14:54)
[2025-01-29] MEDS ORDERED: PROMETHAZINE 6.25 MG/50.25 ML BAG IV PRN (16:16)
[2025-01-29] MEDS: SODIUM BICARB 8.4% INJ 50 MEQ/50 ML SYR IV STA (16:23)
[2025-01-29] MEDS: FLUDROCORTISONE ACETATE 0.1 MG TAB PO SCH (16:33)
[2025-01-29] MEDS: HYDROCORTISONE SOD 50 MG in SYRINGE 0 ML IV SCH (16:33)
[2025-01-29] MEDS: SODIUM BICARBONATE 8.4% 150 MEQ in DEXTROSE 5% 1,000 ML IV SCH (16:53)
[2025-01-29] MEDS: PLASMA-LYTE A 1,000 ML IV ONE (16:56)
[2025-01-29 17:11] LABS: Influenza A PCR (Fusion) Negative (Negative); Influenza B PCR (Fusion) Negative (Negative); RSV PCR (Fusion) Negative (Negative)
[2025-01-29] MEDS ORDERED: DEXTROSE 50% 50 ML SYRINGE IV PRN (21:03)
[2025-01-29] MEDS ORDERED: GLUCAGON FOR INJ 1 MG VIAL SQ PRN (21:03)
[2025-01-29] MEDS ORDERED: GLUCOSE 40% GEL 15 GM TUBE PO PRN (21:03)
[2025-01-29] MEDS ORDERED: CARBOHYDRATES FOR HYPOGLYCEMIA PO PRN (21:03)
[2025-01-29] MEDS ORDERED: GLUCOSE 10 TAB/TUBE PO PRN (21:03)
[2025-01-29] MEDS: ICU Protocol for HYPERglycemia SCH (21:03)
[2025-01-29] MEDS: MIRTAZAPINE TAB 15 MG TAB PO SCH (21:15)
[2025-01-29] MEDS: INSULIN ASPART PER UNIT CHARGE SC SCH (21:16)
--- NOTE | 2025-01-29 22:49 | Electrocardiogram Report ---
Test Reason : Blood Pressure : */* mmHG Vent. Rate : 91 BPM Atrial Rate : 91 BPM P-R Int : 164 ms QRS Dur : 64 ms QT Int : 336 ms P-R-T Axes : 77 8 60 degrees QTcB Int : 413 ms Normal sinus rhythm Normal ECG When compared with ECG of 13-Jan-2025 10:36, No significant change was found Confirmed by Omari Matthew ([id number]) on 01/29/2025 10:49:11 PM Referred By: REFERRED SELF Confirmed By: Omari Matthew
[2025-01-29 23:00] LABS: Base Excess VBG -8.8 mEq/L; HCO3 VBG 17 mmol/L; Oxygen Saturation VBG < 60.0 %; PCO2 VBG 34 mmHg (38-50); PO2 VBG 24 mmHg
[2025-01-29 23:25] LABS: BUN Creatinine Ratio 15.3 (10-20); Calcium 7.9 mg/dl (8.6-10.3); Creatinine Clr Calc Pharmacy 24.1 ml/min; Magnesium 1.8 mg/dl (1.7-2.4); Potassium 2.9 mmol/L (3.5-5.1)
[2025-01-30] MEDS: MAGNESIUM SULFATE / D5W 1 GM/100 ML BAG IV SCH (00:05)
[2025-01-30] MEDS: POTASSIUM CHLORIDE 20 MEQ/15 ML UDC PO SCH (00:05)
[2025-01-30] MEDS: CEFEPIME 1000MG 1,000 MG/10 ML SYR IV SCH (00:05)
[2025-01-30] MEDS: ACETAMINOPHEN 325 MG TAB PO PRN (00:58)
[2025-01-30] MEDS: LOPERAMIDE HCL 2 MG CAP PO PRN (00:58)
[2025-01-30] MEDS: POTASSIUM CHLORIDE CRTAB 20 MEQ TABCR PO ONE ×2 (03:14→19:59)
[2025-01-30 04:59] LABS: Hematocrit (blood only) 27.4 % (37.0-47.0); Hemoglobin 9.1 g/dl (12.0-16.0); Mean Corpuscular Hemoglobin 29.4 pg (25.0-34.0); Mean Corpuscular Hgb Conc 33.2 g/dL (32.0-36.0); Mean Corpuscular Volume 88.7 fL (80.0-100.0); Mean Platelet Volume 9.1 fL (9.4-12.4); Platelet Count 455 K/uL (130-400); RDW Coefficient of Variation 16.6 % (11.5-14.5); RDW Standard Deviation 53.8 fL (36.4-46.3); Red Blood Count 3.09 M/uL (4.20-5.40); White Blood Count 18.43 K/ul (4.8-10.8)
[2025-01-30 05:22] LABS: BUN Creatinine Ratio 14.4 (10-20); Calcium 7.7 mg/dl (8.6-10.3); Creatinine Clr Calc Pharmacy 23.7 ml/min; Phosphorus 2.3 mg/dl (2.5-4.9); Potassium 3.4 mmol/L (3.5-5.1)
[2025-01-30 05:29] LABS: Basophils # (auto) 0.03 K/uL (0.00-0.20); Basophils % (auto) 0.2 %; Eosinophils # (auto) 0.03 K/uL (0.00-0.50); Eosinophils % (auto) 0.2 %; Immature Granulocytes # (auto) 0.11 K/uL (0.01-0.20); Immature Granulocytes % (auto) 0.6 %; Lymphocytes # (auto) 0.51 K/uL (1.20-3.40); Lymphocytes % (auto) 2.8 %; Monocytes # (auto) 0.96 K/uL (0.11-0.59); Monocytes % (auto) 5.2 %; Neutrophils # (auto) 16.79 K/uL (1.40-6.50); Polychromasia 1+
[2025-01-30] MEDS ORDERED: POTASSIUM PHOS 3 MMOL/1 ML INFUSION IV STA (06:55)
[2025-01-30 07:18] LABS: Magnesium 2.5 mg/dl (1.7-2.4)
[2025-01-30] MEDS: POTASSIUM PHOSPHATE 15 MMOL in SODIUM CHLORIDE 0.9% 250 ML IV ONE (07:25)
--- NOTE | 2025-01-30 08:59 | Critical Care Progress Note ---
Date of Service January 30, 2025 Assessment & Plan (1) Septic shock: Plan: Reason Critically Ill: 84-year-old female presents to the ICU with septic shock source, status post bilateral ureteral stent exchange with urology. She required vasopressor support with Levophed drip Recommendations Neuro -no current issues. Continue to follow clinically. Cardiac -presumptive septic shock secondary to presumptive Klebsiella UTI. Now off pressors. On steroids for relative adrenal insufficiency, see comments below. Adequately volume resuscitated Respiratory -no current issues GI -advancing diet as tolerated. Significant diarrhea associated with antibiotics. C. difficile negative. Will discontinue cefepime and transition to Rocephin in hopes of decreasing antibiotic associated diarrhea. Continue Imodium RENAL/LYTES -acute renal failure. Suspect some component of ATN versus concomitant prerenal azotemia. Continue to follow currently. Nephrology consultation pending. Bicarb improving but remains slightly acidotic. Continue bicarb infusion pending nephrology evaluation. Electrolytes replaced. -bilateral stents in place. 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 Would favor replacing stents. Do not think she needs antifungal systemic therapies ENDO - relative adrenal insufficiency. Continue hydrocortisone and Florinef. Glycemic control per protocol HEME - Hemoglobin low. No evidence of blood loss. Will follow clinically at this point time ID - Sepsislikely due to urinary source. Previous UTIs with Klebsiella. Transition to Rocephin. Given the Tatum tropicalis on the urine culture, would recommend exchanging ureteral stents LINES/IV ACCESS - Peripheral IVs. Consider CBC if vasopressor requirements increase DVT PROPHYLAXIS - SCDs, hold anticoagulation for now following ureteral stent exchange Will observe in the ICU for now pending stabilization of her hemodynamic status. Discussed with patient, bedside ICU nurse, and on multidisciplinary rounds. (2) Urinary tract infection: (3) Metabolic acidosis: Admission and Anticipated Discharge Date Admission Date: January 29, 2025 Review of Systems Review of Systems: All systems reviewed & are unremarkable except as noted in Subjective Physical Exam Constitutional: WD/WN, vitals as above Neck: trachea midline, no thyromegaly Respiratory: normal respiratory effort, lungs clear to auscultation Cardiovascular: RRR, no murmur, no edema Gastrointestinal (Abdomen): normal bowel sounds, soft, nontender, no hep atosplenomegaly Musculoskeletal: Extremities: extremities normal to inspection Skin: no rashes, warm and dry Lymphatic: no cervical lymphadenopathy Results & Data Results & Data Vital Signs (Past 12 Hours) Vital Signs Temp Pulse Resp BP Pulse Ox O2 Del Method 01/30/25 07:33 102 H 21 114/66 98 Room Air 01/30/25 07:15 99 H 16 101/56 L 98 Room Air 01/30/25 07:00 100 H 26 H 98/60 L 96 Room Air 01/30/25 07:00 36.5 C 01/30/25 05:31 106/57 L 01/30/25 05:31 106/57 L 01/30/25 05:31 106/57 L 01/30/25 05:27 88 17 97 01/30/25 05:18 91 H 18 95 01/30/25 05:15 98/63 L 01/30/25 05:12 88 19 98 01/30/25 05:06 90 21 98 01/30/25 05:00 103/61 01/30/25 04:57 97 H 16 96 01/30/25 04:45 98 H 15 98 01/30/25 04:45 97/65 L 01/30/25 04:36 86 21 97 01/30/25 04:30 101/62 01/30/25 04:30 101/62 01/30/25 04:15 93/56 L 01/30/25 04:15 86 14 97 01/30/25 04:03 87 14 97 01/30/25 04:00 100/60 01/30/25 04:00 100/60 01/30/25 04:00 100/60 01/30/25 03:51 88 16 97 01/30/25 03:33 90 20 95 01/30/25 03:30 83/43 L 01/30/25 03:30 93 H 20 96 01/30/25 03:15 105 H 15 96 01/30/25 03:03 103 H 19 97 01/30/25 03:02 90/47 L 01/30/25 03:02 90/47 L 01/30/25 03:02 90/47 L 01/30/25 03:00 103 H 24 94 01/30/25 03:00 99 H 33 H 96 01/30/25 01:48 93/63 L 01/30/25 01:48 93/63 L 01/30/25 01:48 93/63 L 01/30/25 01:48 111 H 19 97 01/30/25 01:42 104 H 20 95 01/30/25 01:30 94/53 L 01/30/25 01:30 94/53 L 01/30/25 01:24 108 H 15 96 01/30/25 01:21 112 H 15 96 01/30/25 01:15 107/64 01/30/25 01:15 107/64 01/30/25 01:00 109/58 L 01/30/25 00:54 114 H 15 97 01/30/25 00:48 102/65 01/30/25 00:48 117 H 20 96 01/30/25 00:33 105 H 19 97 01/30/25 00:31 99 H 01/30/25 00:30 117/51 L 01/30/25 00:30 117/51 L 01/30/25 00:16 98/71 L 01/30/25 00:09 100 H 24 97 01/29/25 23:46 99/60 L 01/29/25 23:36 94 H 19 98 01/29/25 23:15 87 13 98 01/29/25 23:15 103/56 L 01/29/25 23:15 103/56 L 01/29/25 23:15 103/56 L 01/29/25 23:03 116/65 01/29/25 23:03 116/65 01/29/25 23:00 90 18 94 01/29/25 22:45 106/53 L 01/29/25 22:33 86 15 98 01/29/25 22:30 106/54 L 01/29/25 22:30 106/54 L 01/29/25 22:15 113/57 L 01/29/25 22:15 113/57 L 01/29/25 22:12 86 15 97 01/29/25 22:00 115/57 L 01/29/25 21:48 88 14 97 01/29/25 21:45 108/55 L 01/29/25 21:45 108/55 L 01/29/25 21:30 109/58 L 01/29/25 21:30 109/58 L 01/29/25 21:30 85 15 95 01/29/25 21:21 98 H 14 92 01/29/25 21:03 90 16 94 01/29/25 21:01 124/63 01/29/25 21:01 124/63 01/29/25 20:57 96 H 13 99 01/29/25 20:48 86 18 99 01/29/25 20:45 107/67 01/29/25 20:45 107/67 01/29/25 20:45 107/67 01/29/25 20:39 93 H 15 97 01/29/25 20:31 105/50 L 01/29/25 20:31 105/50 L 01/29/25 20:31 105/50 L 01/29/25 20:31 105/50 L 01/29/25 20:31 105/50 L 01/29/25 20:30 92 H 23 99 01/29/25 20:24 87 18 99 01/29/25 20:03 85 16 98 Critical Care Results & Data Vital Signs (Past 12 Hours) Vital Signs Temp Pulse Resp BP Pulse Ox O2 Del Method 01/30/25 07:33 102 H 21 114/66 98 Room Air 01/30/25 07:15 99 H 16 101/56 L 98 Room Air 01/30/25 07:00 100 H 26 H 98/60 L 96 Room Air 01/30/25 07:00 36.5 C 01/30/25 05:31 106/57 L 01/30/25 05:31 106/57 L 01/30/25 05:31 106/57 L 01/30/25 05:27 88 17 97 01/30/25 05:18 91 H 18 95 01/30/25 05:15 98/63 L 01/30/25 05:12 88 19 98 01/30/25 05:06 90 21 98 01/30/25 05:00 103/61 01/30/25 04:57 97 H 16 96 01/30/25 04:45 98 H 15 98 01/30/25 04:45 97/65 L 01/30/25 04:36 86 21 97 01/30/25 04:30 101/62 01/30/25 04:30 101/62 01/30/25 04:15 93/56 L 01/30/25 04:15 86 14 97 01/30/25 04:03 87 14 97 01/30/25 04:00 100/60 01/30/25 04:00 100/60 01/30/25 04:00 100/60 01/30/25 03:51 88 16 97 01/30/25 03:33 90 20 95 01/30/25 03:30 83/43 L 01/30/25 03:30 93 H 20 96 01/30/25 03:15 105 H 15 96 01/30/25 03:03 103 H 19 97 01/30/25 03:02 90/47 L 01/30/25 03:02 90/47 L 01/30/25 03:02 90/47 L 01/30/25 03:00 103 H 24 94 01/30/25 03:00 99 H 33 H 96 01/30/25 01:48 93/63 L 01/30/25 01:48 93/63 L 01/30/25 01:48 93/63 L 01/30/25 01:48 111 H 19 97 01/30/25 01:42 104 H 20 95 01/30/25 01:30 94/53 L 01/30/25 01:30 94/53 L 01/30/25 01:24 108 H 15 96 01/30/25 01:21 112 H 15 96 01/30/25 01:15 107/64 01/30/25 01:15 107/64 01/30/25 01:00 109/58 L 01/30/25 00:54 114 H 15 97 01/30/25 00:48 102/65 01/30/25 00:48 117 H 20 96 01/30/25 00:33 105 H 19 97 01/30/25 00:31 99 H 01/30/25 00:30 117/51 L 01/30/25 00:30 117/51 L 01/30/25 00:16 98/71 L 01/30/25 00:09 100 H 24 97 01/29/25 23:46 99/60 L 01/29/25 23:36 94 H 19 98 01/29/25 23:15 87 13 98 01/29/25 23:15 103/56 L 01/29/25 23:15 103/56 L 01/29/25 23:15 103/56 L 01/29/25 23:03 116/65 01/29/25 23:03 116/65 01/29/25 23:00 90 18 94 01/29/25 22:45 106/53 L 01/29/25 22:33 86 15 98 01/29/25 22:30 106/54 L 01/29/25 22:30 106/54 L 01/29/25 22:15 113/57 L 01/29/25 22:15 113/57 L 01/29/25 22:12 86 15 97 01/29/25 22:00 115/57 L 01/29/25 21:48 88 14 97 01/29/25 21:45 108/55 L 01/29/25 21:45 108/55 L 01/29/25 21:30 109/58 L 01/29/25 21:30 109/58 L 01/29/25 21:30 85 15 95 01/29/25 21:21 98 H 14 92 01/29/25 21:03 90 16 94 01/29/25 21:01 124/63 01/29/25 21:01 124/63 01/29/25 20:57 96 H 13 99 01/29/25 20:48 86 18 99 01/29/25 20:45 107/67 01/29/25 20:45 107/67 01/29/25 20:45 107/67 01/29/25 20:39 93 H 15 97 01/29/25 20:31 105/50 L 01/29/25 20:31 105/50 L 01/29/25 20:31 105/50 L 01/29/25 20:31 105/50 L 01/29/25 20:31 105/50 L 01/29/25 20:30 92 H 23 99 01/29/25 20:24 87 18 99 01/29/25 20:03 85 16 98 Lab & Micro Results (Past 24 Hours) RBC 3.09 M/uL (4.20-5.40) L 01/30/25 WBC 18.43 K/ul (4.8-10.8) H 01/30/25 Hgb 9.1 g/dl (12.0-16.0) L 01/30/25 Hct 27.4 % (37.0-47.0) L 01/30/25 MCV 88.7 fL (80.0-100.0) 01/30/25 MCH 29.4 pg (25.0-34.0) 01/30/25 MCHC 33.2 g/dL (32.0-36.0) 01/30/25 RDW Standard Deviation 53.8 fL (36.4-46.3) H 01/30/25 RDW Coefficient of Variation 16.6 % (11.5-14.5) H 01/30/25 Plt Count 455 K/uL (130-400) H 01/30/25 MPV 9.1 fL (9.4-12.4) L 01/30/25 Neutrophils (%) (Auto) 91.0 % 01/30/25 Lymphocytes (%) (Auto) 2.8 % 01/30/25 Monocytes # (Auto) 0.96 K/uL (0.11-0.59) H 01/30/25 Eosinophils # (Auto) 0.03 K/uL (0.00-0.50) 01/30/25 Immature Granulocyte % (Auto) 0.6 % 01/30/25 Neutrophils # (Auto) 16.79 K/uL (1.40-6.50) H 01/30/25 Lymphocytes # (Auto) 0.51 K/uL (1.20-3.40) L 01/30/25 Monocytes # (Auto) 0.96 K/uL (0.11-0.59) H 01/30/25 Eosinophils # (Auto) 0.03 K/uL (0.00-0.50) 01/30/25 Basophils # (Auto) 0.03 K/uL (0.00-0.20) 01/30/25 Immature Granulocyte # (Auto) 0.11 K/uL (0.01-0.20) 5 Polychromasia 1+ 01/30/25 Na 136 mmol/L (136-145) 01/30/25 K 3.4 mmol/L (3.5-5.1) L 01/30/25 Cl 111 mmol/L (98-107) H 01/30/25 CO2 18 mmol/L (21-32) L 01/30/25 Anion Gap 7 (3-11) 01/30/25 BUN 20 mg/dl (6-23) 01/30/25 Creatinine 1.39 mg/dl (0.6-1.2) H 01/30/25 BUN/Creatinine Ratio 14.4 (10-20) 01/30/25 Glu 219 mg/dl (70-99(Fasting)) H 01/30/25 Ca 7.7 mg/dl (8.6-10.3) L 01/30/25 Phosphorus Level 2.3 mg/dl (2.5-4.9) L 01/30/25 Total Bilirubin 0.4 mg/dl (0.2-1.0) 01/29/25 Direct Bilirubin 0.0 mg/dl (0-0.2) 01/29/25 AST 9 U/L (13-39) L 01/29/25 ALT 6 U/L (7-52) L 01/29/25 Alkaline Phosphatase 104 U/L (34-104) 01/29/25 TP 7.2 gm/dl (6.0-8.3) 01/29/25 Albumin 3.4 gm/dl (3.4-5.0) 01/29/25 Mg 2.5 mg/dl (1.7-2.4) H 01/30/25 04:44 Calcium Level 7.7 mg/dl (8.6-10.3) L 01/30/25 04:44 Venous Blood pH 7.30 (7.36-7.41) L 01/29/25 22:47 Venous Blood Partial Pressure CO2 34 mmHg (38-50) L 01/29/25 22 :47 Venous Blood Partial Pressure O2 24 mmHg 01/29/25 22:47 Venous Blood HCO3 17 mmol/L 01/29/25 22:47 Venous Blood Base Excess -8.8 mEq/L 01/29/25 22:47 Venous Blood Oxygen Saturation < 60.0 % 01/29/25 22:47 Microbiology 01/29/25 12:38 Urine Culture - Preliminary Urine,Clean Catch Tatum tropicalis Diagnostic Findings (Past 24 Hours) Chest X-Ray 01/29/25 10:44 XR chest 1V portable CLINICAL HISTORY: Sepsis COMPARISON STUDY: 11/23/2024 FINDINGS: Heart size and pulmonary vasculature are normal. There is a possible small area of patchy opacity right mid to upper lung. No effusion, consolidation, or pneumothorax otherwise. IMPRESSION: Artifact versus early pneumonia on the right. ACT 112: Negative or not required by law. Electronically signed by: Santos Tapia M.D. 01/29/2025 11:16 AM Abdomen/Pelvis CT 01/29/25 11:[address] WITHOUT CONTRAST CT DOSE: 403.19 mGy.cm HISTORY: R flank pain, ureteral stent, incr pain, low BP TECHNIQUE: Multiaxial CT images of the abdomen and pelvis were performed without contrast. A dose lowering technique was utilized adhering to the principles of ALARA. COMPARISON STUDY: 11/23/2024 FINDINGS: ABDOMEN: Liver, gallbladder, spleen, pancreas, and adrenal glands have an unremarkable non-IV contrasted appearance. There are bilateral ureteral stents. They have migrated slightly proximally compared to the prior exam, but the distal pigtails remain within the urinary bladder. There is no hydronephrosis. There are multiple small bilateral renal calculi. No ureteral calculi seen. There are atherosclerotic calcifications. No abdominal aortic aneurysm. Pelvis: Urinary bladder is nondistended. No bowel inflammation or obstruction is seen. Stable small fat-containing midline low ventral hernia. No free fluid or free air. No enlarged adenopathy. Osseous structures: Stable hardware at the proximal femurs. There is lumbar degenerative disc disease. IMPRESSION: 1. No acute findings. 2. Bilateral ureteral stents have migrated slightly proximally compared to the prior exam but the distal pigtails remain within the urinary bladder and there is no hydronephrosis. 3. Otherwise as described. ACT 112: Negative or not required by law. The above report was generated using voice recognition software. It may contain grammatical, syntax or spelling errors. Electronically signed by: Santos Tapia M.D. 01/29/2025 12:42 PM I & O Totals 24 Hours 01/29/25 01/30/25 01/31/25 05:59 06:59 06:59 Intake Total Output Total 2 / 2 Balance -2 / -2 Cumulative 01/29/25 09:58 thru 01/30/25 08:30 Intake Total 3918.571 Output Total 363 Balance 3555.571 RT Ventilator Mngmt (Last Documented) Ventilator Ordered Settings Respiratory Rate 21 01/30/25 07:33 Ventilator - PT Measurements Respiratory Rate 21 Coding Level of Care Code 71659 SUB INP/OBS CARE 3/50MIN Diagnoses Septic shock A41.9; R65.21 Urinary tract infection N39.0 Metabolic acidosis E87.20
[2025-01-30] MEDS: cefTRIAXone SODIUM 1,000 MG MINI-B 50ML IV SCH (10:26)
--- NOTE | 2025-01-30 10:33 | Hospitalist Progress Note ---
Date of Service January 30, 2025 Assessment & Plan (1) Septic shock: (2) Complicated urinary tract infection: Plan: Ureteral stents (3) Right upper lobe pneumonia: (4) Metabolic acidosis: (5) Ureteral stent present: (6) Electrolyte abnormality: (7) Chronic renal failure (CRF), stage 3b: (8) Diarrhea due to drug: Plan Patient presented to the emergency room in septic shock thought to be due to urinary source with recent instrumentation and stent placement. Additionally potentially complicated by right upper lobe pneumonia. Patient had aggressive fluid resuscitation and were initially required IV Levop hed for pressor support, this has been titrated off and she is maintaining adequate MAP at this time. Shock has resolved Electrolytes being replaced Doxycycline for atypical coverage for presumed pneumonia seen on CAT scan in addition to the Rocephin Metabolic acidosis improving, expected with septic shock. Bicarb drip as directed by intensive care provider, nephrology consult pending Stress dose steroids as directed by intensive care provider Check hemoglobin A1c with hyperglycemia possibly due to steroids, continue insulin coverage Admission and Anticipated Discharge Date Admission Date: January 29, 2025 Subjective Patient feeling improved from yesterday. No chest pain or shortness of breath. Did have multiple loose stools overnight and some abdominal discomfort and pain secondary to this. Physical Exam Physical Exam: Constitutional: Alert, and moderately ill HEENT: Mucous membranes moist. Lungs: Decreased breath sounds, no significant wheezing CV: S1-S2, regular Abdomen: Soft, lower quadrant and suprapubic tenderness, no guarding or rigidity Extremities: No significant edema Neuro: No focal deficits, generally weak Psych: Cooperative, normal mood Results & Data Results & Data Vital Signs (Past 12 Hours) Vital Signs Temp Pulse Resp BP Pulse Ox O2 Del Method 01/30/25 09:10 94 H 24 99/48 L 94 Room Air 01/30/25 09:00 101 H 23 88/47 L 97 Room Air 01/30/25 08:45 100 H 20 84/48 L 95 Room Air 01/30/25 08:30 106 H 18 92/46 L 97 Room Air 01/30/25 08:15 104 H 15 96/49 L 98 Room Air 01/30/25 08:03 108 H 13 101/60 97 Room Air 01/30/25 08:00 107 H 14 101/60 97 Room Air 01/30/25 07:45 121 H 22 91/53 L 95 Room Air 01/30/25 07:33 102 H 21 114/66 98 Room Air 01/30/25 07:15 99 H 16 101/56 L 98 Room Air 01/30/25 07:00 100 H 26 H 98/60 L 96 Room Air 01/30/25 07:00 36.5 C 01/30/25 05:31 106/57 L 01/30/25 05:31 106/57 L 01/30/25 05:31 106/57 L 01/30/25 05:27 88 17 97 01/30/25 05:18 91 H 18 95 01/30/25 05:15 98/63 L 01/30/25 05:12 88 19 98 01/30/25 05:06 90 21 98 01/30/25 05:00 103/61 01/30/25 04:57 97 H 16 96 01/30/25 04:45 98 H 15 98 01/30/25 04:45 97/65 L 01/30/25 04:36 86 21 97 01/30/25 04:30 101/62 01/30/25 04:30 101/62 01/30/25 04:15 93/56 L 01/30/25 04:15 86 14 97 01/30/25 04:03 87 14 97 01/30/25 04:00 100/60 01/30/25 04:00 100/60 01/30/25 04:00 100/60 01/30/25 03:51 88 16 97 01/30/25 03:33 90 20 95 01/30/25 03:30 83/43 L 01/30/25 03:30 93 H 20 96 01/30/25 03:15 105 H 15 96 01/30/25 03:03 103 H 19 97 01/30/25 03:02 90/47 L 01/30/25 03:02 90/47 L 01/30/25 03:02 90/47 L 01/30/25 03:00 103 H 24 94 01/30/25 03:00 99 H 33 H 96 01/30/25 01:48 93/63 L 01/30/25 01:48 93/63 L 01/30/25 01:48 93/63 L 01/30/25 01:48 111 H 19 97 01/30/25 01:42 104 H 20 95 01/30/25 01:30 94/53 L 01/30/25 01:30 94/53 L 01/30/25 01:24 108 H 15 96 01/30/25 01:21 112 H 15 96 01/30/25 01:15 107/64 01/30/25 01:15 107/64 01/30/25 01:00 109/58 L 01/30/25 00:54 114 H 15 97 01/30/25 00:48 102/65 01/30/25 00:48 117 H 20 96 01/30/25 00:33 105 H 19 97 01/30/25 00:31 99 H 01/30/25 00:30 117/51 L 01/30/25 00:30 117/51 L 01/30/25 00:16 98/71 L 01/30/25 00:09 100 H 24 97 01/29/25 23:46 99/60 L 01/29/25 23:36 94 H 19 98 01/29/25 23:15 87 13 98 01/29/25 23:15 103/56 L 01/29/25 23:15 103/56 L 01/29/25 23:15 103/56 L 01/29/25 23:03 116/65 01/29/25 23:03 116/65 01/29/25 23:00 90 18 94 01/29/25 22:45 106/53 L 01/29/25 22:33 86 15 98 01/29/25 22:30 106/54 L 01/29/25 22:30 106/54 L 01/29/25 22:15 113/57 L 01/29/25 22:15 113/57 L 01/29/25 22:12 86 15 97 01/29/25 22:00 115/57 L 01/29/25 21:48 88 14 97 01/29/25 21:45 108/55 L 01/29/25 21:45 108/55 L 01/29/25 21:30 109/58 L 01/29/25 21:30 109/58 L 01/29/25 21:30 85 15 95 Diagnostic Findings Reviewed imaging, laboratory and diagnostic studies. Pertinent findings as below. Urine culture reviewed, growing Tatum, no bacterial growth to date Blood cultures reviewed, pending initial results WBCs 18.4 Hemoglobin 9.1 Potassium 3.4 Carbon dioxide 18 Creatinine 1.39 phosphorus 2.3 Magnesium 2.5 Personally reviewed CTA chest, right upper lobe infiltrate Stool negative for C. difficile
--- NOTE | 2025-01-30 10:36 | CT Scan Report ---
CT chest diagnostic wo con CT DOSE: 283.84 mGy.cm CLINICAL HISTORY: r/o pneumonia. TECHNIQUE: Multiaxial CT images of the chest were performed without contrast. A dose lowering techni que was utilized adhering to the principles of ALARA. COMPARISON STUDY: X-ray yesterday FINDINGS: There is a moderate-sized area of patchy consolidation with wedge-shaped morphology on the sagittal imaging superiorly at the right lower lobe. No other pulmonary consolidation or pleural effu cisco. No pneumothorax. No enlarged adenopathy. No pericardial effusion. There are coronary artery and aortic calcifications. There are mild thoracic spine degenerative changes. IMPRESSION: Moderate-sized wedge-shaped area of consolidation superior aspect right lower lobe. Diffe rential diagnosis includes focal pneumonia and pulmonary infarction. Suggest correlation with d-dimer . Recommend follow-up chest CT in 3 months to make sure this completely resolves without underlying n odule. ACT 112: Positive. There are findings on this exam that require communication between the performing entity and the patient following Patient Test Result Information Act ([place] Act 112) guidelines. Electronically signed by: Santos Tapia M.D. 01/30/2025 10:34 AM
[2025-01-30] MEDS: LACTATED RINGER'S 1,000 ML IV SCH (11:06)
--- NOTE | 2025-01-30 11:14 | Urology Consultation ---
Date of Consultation January 30, 2025 Assessment & Plan (1) Ureteral stent present: (2) Bilateral kidney stones: Plan Presented acutely ill with urosepsis Being treated empirically for bacterial infection Additionally had [place] tropicalis in her urine She had debris in her bladder during her most recent stent exchange and stone treatment Discussed her case with Dr. Sumner from critical care I think we likely will plan for stent exchange later this week secondary to the candidal species I do not think this needs to occur urgently History of Present Illness Attending Physician: Roger Patrick, DO History of Present Illness 84-year-old female known to our service with bilateral ureteral stents in place She has had prior admission secondary to urosepsis She presented similarly yesterday, clear signs of sepsis with shock reaction On pressors ultimately with aggressive resuscitation Gradually improving Urine culture showing Tatum species During her most recent surgery on 01/21 was described to have a significant mount of debris within the dependent portion of the bladderthis implies this could be a chronic issue Her CT was personally reviewed and interpretedshe does not have hydronephrosis or other signs of obstruction of the ureters She has been treating empirically for Klebsiella given her prior episodes of infection Allergies Allergy/AdvReac Type Severity Reaction Status Date / Time influenza virus vaccine, Allergy Severe Gillean Verified 01/29/25 12:51 specific [place] Syndrome Sulfa (Sulfonamide Allergy Unknown Unknown Verified 01/29/25 12:51 Antibiotics) cephalexin AdvReac Mild Nausea Verified 01/29/25 12:51 Home Medications Medication Instructions Recorded Confirmed Type ferrous sulfate 325 mg (65 mg 325 mg PO QDL 07/17/18 01/29/25 History iron) tablet (iron) raloxifene 60 mg tablet 60 mg PO QAM 01/20/20 01/29/25 History cyanocobalamin (vitamin B-12) 500 500 mcg PO QAM 12/20/20 01/29/25 History mcg tablet (Vitamin B-12) cranberry extract 500 mg capsule 500 mg PO QAM 05/08/21 01/29/25 History (Cranberry Concentrate) potassium chloride 10 mEq 40 meq PO BIDWMEAL 04/09/22 01/29/25 History tablet,extended release acetaminophen 500 mg tablet 1,000 mg PO Q8 PRN Pain 02/05/24 01/29/25 History loperamide 2 mg capsule 2 mg PO Q6H PRN loose stool #30 12/04/24 01/29/25 Rx caps Bifidobacterium infantis 4 mg 4 mg PO QDL 01/04/25 01/29/25 History capsule (Align (B.infantis)) cholecalciferol (vitamin D3) 25 25 mcg PO QDL 01/29/25 01/29/25 History mcg (1,000 unit) tablet (Vitamin D3) mirtazapine 7.5 mg tablet 7.5 mg PO HS 01/29/25 01/29/25 History Patient History Medical History Depression Hypotension States Metoprolol on hold Hx of sepsis Sepsis/MALINA r/t UTI, hospitalized at [facility] 10/2024 History of colitis Neuropathy involving both lower extremities Hydronephrosis concurrent with and due to calculi of kidney and ureter History of seizure Single episode s/p benign brain tumor excision (1998) No issues since History of right breast cancer (2000) s/p radiation Kidney stones Anemia 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 Osteoarthritis 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 Surgical History History of postoperative nausea and vomiting History of open reduction and internal fixation (ORIF) procedure right femur fx - [facility] - 09/2024 Hx of lithotripsy (01/18/21) S/P cystoscopy with ureteral stent placement Multiple History of tooth extraction History of colonoscopy History of appendectomy History of total knee replacement R/L (2020) History of hip surgery right and left due to falling History of brain surgery (1998) 1998; benign tumor excision Hx of hysterectomy Hx of lumpectomy Right breast- had xrt Family History Mother Macular degeneration Father Kidney stone Diabetes Social History Smoking Status: Never smoker Tobacco Type: Declines Second Hand Exposure: No; Do You Dip or Chew Tobacco: No; Hx Alcohol Use: No Hx Substance Use: No Preferred Language: Mosotho Communication Ability: Effective Visual Impairment: No Limitations Ad Operations Specialist Required: No Beliefs That Will Affect Care: None marital status: / Current Living Situation: Alone Current Living Situation Comment: son Feels Safe at Home: Yes Assistive Devices: None Physical Exam Physical Exam: Alert, responsive Abdomen soft Results & Data Vital Signs (Past 12 Hours) Vital Signs Temp Pulse Resp BP Pulse Ox O2 Del Method 01/30/25 09:10 94 H 24 99/48 L 94 Room Air 01/30/25 09:00 101 H 23 88/47 L 97 Room Air 01/30/25 08:45 100 H 20 84/48 L 95 Room Air 01/30/25 08:30 106 H 18 92/46 L 97 Room Air 01/30/25 08:15 104 H 15 96/49 L 98 Room Air 01/30/25 08:03 108 H 13 101/60 97 Room Air 01/30/25 08:00 107 H 14 101/60 97 Room Air 01/30/25 07:45 121 H 22 91/53 L 95 Room Air 01/30/25 07:33 102 H 21 114/66 98 Room Air 01/30/25 07:15 99 H 16 101/56 L 98 Room Air 01/30/25 07:00 100 H 26 H 98/60 L 96 Room Air 01/30/25 07:00 36.5 C 01/30/25 05:31 106/57 L 01/30/25 05:31 106/57 L 01/30/25 05:31 106/57 L 01/30/25 05:27 88 17 97 01/30/25 05:18 91 H 18 95 01/30/25 05:15 98/63 L 01/30/25 05:12 88 19 98 01/30/25 05:06 90 21 98 01/30/25 05:00 103/61 01/30/25 04:57 97 H 16 96 01/30/25 04:45 98 H 15 98 01/30/25 04:45 97/65 L 01/30/25 04:36 86 21 97 01/30/25 04:30 101/62 01/30/25 04:30 101/62 01/30/25 04:15 93/56 L 01/30/25 04:15 86 14 97 01/30/25 04:03 87 14 97 01/30/25 04:00 100/60 01/30/25 04:00 100/60 01/30/25 04:00 100/60 01/30/25 03:51 88 16 97 01/30/25 03:33 90 20 95 01/30/25 03:30 83/43 L 01/30/25 03:30 93 H 20 96 01/30/25 03:15 105 H 15 96 01/30/25 03:03 103 H 19 97 01/30/25 03:02 90/47 L 01/30/25 03:02 90/47 L 01/30/25 03:02 90/47 L 01/30/25 03:00 103 H 24 94 01/30/25 03:00 99 H 33 H 96 01/30/25 01:48 93/63 L 01/30/25 01:48 93/63 L 01/30/25 01:48 93/63 L 01/30/25 01:48 111 H 19 97 01/30/25 01:42 104 H 20 95 01/30/25 01:30 94/53 L 01/30/25 01:30 94/53 L 01/30/25 01:24 108 H 15 96 01/30/25 01:21 112 H 15 96 01/30/25 01:15 107/64 01/30/25 01:15 107/64 01/30/25 01:00 109/58 L 01/30/25 00:54 114 H 15 97 01/30/25 00:48 102/65 01/30/25 00:48 117 H 20 96 01/30/25 00:33 105 H 19 97 01/30/25 00:31 99 H 01/30/25 00:30 117/51 L 01/30/25 00:30 117/51 L 01/30/25 00:16 98/71 L 01/30/25 00:09 100 H 24 97 01/29/25 23:46 99/60 L 01/29/25 23:36 94 H 19 98 01/29/25 23:15 87 13 98 01/29/25 23:15 103/56 L 01/29/25 23:15 103/56 L 01/29/25 23:15 103/56 L 01/29/25 23:03 116/65 01/29/25 23:03 116/65 01/29/25 23:00 90 18 94 01/29/25 22:45 106/53 L 01/29/25 22:33 86 15 98 01/29/25 22:30 106/54 L 01/29/25 22:30 106/54 L 01/29/25 22:15 113/57 L 01/29/25 22:15 113/57 L PG Care Time/CCT Total # of Minutes Spent Total Time Spent with Patient: Total time spent is greater than 50% in coordination of care (as documented) at patient's floor/unit and/or counseling patient: Coding Level of Care Code 93670 IN/OBS CONSULT LVL 2,35M Diagnoses Ureteral stent present Z96.0 Bilateral kidney stones N20.0
--- NOTE | 2025-01-30 14:51 | Nephrology Consultation ---
Date of Consultation January 30, 2025 Assessment & Plan (1) MALINA (acute kidney injury): Patient with the acute kidney injury due to ischemic ATN in setting of sepsis. Admission creatinine of 1.6 but downtrending 1.4 today. she has hypokalemia of 3.4. No indication for dialysis. Will continue monitor input output. Avoid nephrotoxins such as contrast. Renally dose antibiotics for current GFR. Avoid hypotension. Please let start pressors if needed to maintain map above 65. Will stop bicarb drip to avoid worsening hypokalemia. Will start Plasmalyte at 150 mL/hour. (2) Metabolic acidosis: Patient with mild metabolic acidosis with bicarb of 18. She has been on a bicarb drip. Will change to Plasmalyte. Will continue monitor closely. (3) Electrolyte abnormality: Potassium was 3.4 today. Patient is receiving potassium phosphate per ICU team. Continue to monitor and supplement as needed to maintain potassium above 3.5 (4) Ureteral stent present: patient has a ureteral stent. patient most likely need stent removal due to fungal infection. Urine is growing Tatum species. Tatum is difficult to clear in the presence of a foreign body in this case stent. Urology is following. History of Present Illness Reason for Consultation: acute kidneyinjury Requesting Physician: Roger Patrick DO Attending Physician: Roger Patrick DO History of Present Illness This is 84-year-old female with history of obstructive kidney stones status post ureteral stent placement and exchange in September and most recently 04/12/2025, CKD stage 3 baseline creatinine 1 was admitted with right flank pain found to have septic shock Likely urinary source. Urine is also growing Tatum. Patient required Levophed that that was stopped this morning. Her blood pressure remains intermittently low. She feels a little better. Flank pain has improved. She is being treated empirically with the ceftriaxone. She had severe diarrhea was cefepime last night. no leg swelling. No shortness of breath creatinine was 1.6 on admission but down to 1.4. She has metabolic acidosis with bicarb of 18. Potassium was low, 3.4. Urine output about 500 mL today. Allergies Allergy/AdvReac Type Severity Reaction Status Date / Time influenza virus vaccine, Allergy Severe Gillean Verified 01/29/25 12:51 specific [place] Syndrome Sulfa (Sulfonamide Allergy Unknown Unknown Verified 01/29/25 12:51 Antibiotics) cephalexin AdvReac Mild Nausea Verified 01/29/25 12:51 Home Medications Medication Instructions Recorded Confirmed Type ferrous sulfate 325 mg (65 mg 325 mg PO QDL 07/17/18 01/29/25 History iron) tablet (iron) raloxifene 60 mg tablet 60 mg PO QAM 01/20/20 01/29/25 History cyanocobalamin (vitamin B-12) 500 500 mcg PO QAM 12/20/20 01/29/25 History mcg tablet (Vitamin B-12) cranberry extract 500 mg capsule 500 mg PO QAM 05/08/21 01/29/25 History (Cranberry Concentrate) potassium chloride 10 mEq 40 meq PO BIDWMEAL 04/09/22 01/29/25 History tablet,extended release acetaminophen 500 mg tablet 1,000 mg PO Q8 PRN Pain 02/05/24 01/29/25 History loperamide 2 mg capsule 2 mg PO Q6H PRN loose stool #30 12/04/24 01/29/25 Rx caps Bifidobacterium infantis 4 mg 4 mg PO QDL 01/04/25 01/29/25 History capsule (Align (B.infantis)) cholecalciferol (vitamin D3) 25 25 mcg PO QDL 01/29/25 01/29/25 History mcg (1,000 unit) tablet (Vitamin D3) mirtazapine 7.5 mg tablet 7.5 mg PO HS 01/29/25 01/29/25 History Patient History Medical History Depression Hypotension States Metoprolol on hold Hx of sepsis Sepsis/MALINA r/t UTI, hospitalized at [facility] 10/2024 History of colitis Neuropathy involving both lower extremities Hydronephrosis concurrent with and due to calculi of kidney and ureter History of seizure Single episode s/p benign brain tumor excision (1998) No issues since History of right breast cancer (2000) s/p radiation Kidney stones Anemia 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 Osteoarthritis 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 Surgical History History of postoperative nausea and vomiting History of open reduction and internal fixation (ORIF) procedure right femur fx - [facility] - 09/2024 Hx of lithotripsy (01/18/21) S/P cystoscopy with ureteral stent placement Multiple History of tooth extraction History of colonoscopy History of appendectomy History of total knee replacement R/L (2020) History of hip surgery right and left due to falling History of brain surgery (1998) 1998; benign tumor excision Hx of hysterectomy Hx of lumpectomy Right breast- had xrt Family History Mother Macular degeneration Father Kidney stone Diabetes Social History Smoking Status: Never smoker Tobacco Type: Declines Second Hand Exposure: No; Do You Dip or Chew Tobacco: No; Hx Alcohol Use: No Hx Substance Use: No Preferred Language: Cameroonian Communication Ability: Effective Visual Impairment: No Limitations Home Visitor Required: No Beliefs That Will Affect Care: None marital status: / Current Living Situation: Alone Current Living Situation Comment: son Feels Safe at Home: Yes Assistive Devices: None Review of Systems 2 Review of Systems: All other systems were reviewed and negative except as noted in HPI Physical Exam 2 Physical Exam: General exam: Appears comfortable, no acute distress HEENT: Pupils are equal and reactive to light Neck: No JVD, neck is supple trachea is midline Respiratory system: Clear breath sounds bilaterally. Gastrointestinal: Abdomen is soft, non distended, non tender, bowel sounds are present CVS: Regular rate and rhythm. No murmurs, rubs or gallops Musculoskeletal: right flank tenderness Extremities: Non tender, no edema, peripheral pulses are present Neuro: Oriented, no tremors, no focal neurological deficits Skin: No rashes Results & Data Vital Signs (Past 12 Hours) Vital Signs Temp Pulse Pulse Resp BP BP Pulse Ox 01/30/25 13:45 102 H 19 76/42 L 94 01/30/25 13:25 108 H 20 92/55 L 95 01/30/25 13:17 105 H 15 82/52 L 97 01/30/25 13:00 110 H 18 75/53 L 95 01/30/25 12:00 106 H 28 H 101/59 L 96 01/30/25 12:00 36.5 C 01/30/25 11:00 96 H 20 91/58 L 96 01/30/25 10:36 101 H 26 H 104/65 98 01/30/25 10:27 111 H 27 H 104/65 88 L 01/30/25 10:00 97 H 19 89/53 L 97 01/30/25 09:48 115 H 22 106/56 L 97 01/30/25 09:10 94 H 24 99/48 L 94 01/30/25 09:00 101 H 23 88/47 L 97 01/30/25 08:45 100 H 20 84/48 L 95 01/30/25 08:30 106 H 18 92/46 L 97 01/30/25 08:15 104 H 15 96/49 L 98 01/30/25 08:03 108 H 13 101/60 97 01/30/25 08:00 107 H 14 101/60 97 01/30/25 07:45 121 H 22 91/53 L 95 01/30/25 07:33 102 H 21 114/66 98 01/30/25 07:15 99 H 16 101/56 L 98 01/30/25 07:00 100 H 26 H 98/60 L 96 01/30/25 07:00 36.5 C 01/30/25 05:31 106/57 L 01/30/25 05:31 106/57 L 01/30/25 05:31 106/57 L 01/30/25 05:27 88 17 97 01/30/25 05:18 91 H 18 95 01/30/25 05:15 98/63 L 01/30/25 05:12 88 19 98 01/30/25 05:06 90 21 98 01/30/25 05:00 103/61 01/30/25 04:57 97 H 16 96 01/30/25 04:45 98 H 15 98 01/30/25 04:45 97/65 L 01/30/25 04:36 86 21 97 01/30/25 04:30 101/62 01/30/25 04:30 101/62 01/30/25 04:15 93/56 L 01/30/25 04:15 86 14 97 01/30/25 04:03 87 14 97 01/30/25 04:00 100/60 01/30/25 04:00 100/60 01/30/25 04:00 100/60 01/30/25 03:51 88 16 97 01/30/25 03:33 90 20 95 01/30/25 03:30 83/43 L 01/30/25 03:30 93 H 20 96 01/30/25 03:15 105 H 15 96 01/30/25 03:03 103 H 19 97 01/30/25 03:02 90/47 L 01/30/25 03:02 90/47 L 01/30/25 03:02 90/47 L 01/30/25 03:00 103 H 24 94 01/30/25 03:00 99 H 33 H 96 O2 Del Method 01/30/25 13:45 Room Air 01/30/25 13:25 Room Air 01/30/25 13:17 Room Air 01/30/25 13:00 Room Air 01/30/25 12:00 Room Air 01/30/25 12:00 01/30/25 11:00 Room Air 01/30/25 10:36 01/30/25 10:27 01/30/25 10:00 01/30/25 09:48 01/30/25 09:10 Room Air 01/30/25 09:00 Room Air 01/30/25 08:45 Room Air 01/30/25 08:30 Room Air 01/30/25 08:15 Room Air 01/30/25 08:03 Room Air 01/30/25 08:00 Room Air 01/30/25 07:45 Room Air 01/30/25 07:33 Room Air 01/30/25 07:15 Room Air 01/30/25 07:00 Room Air 01/30/25 07:00 01/30/25 05:31 01/30/25 05:31 01/30/25 05:31 01/30/25 05:27 01/30/25 05:18 01/30/25 05:15 01/30/25 05:12 01/30/25 05:06 01/30/25 05:00 01/30/25 04:57 01/30/25 04:45 01/30/25 04:45 01/30/25 04:36 01/30/25 04:30 01/30/25 04:30 01/30/25 04:15 01/30/25 04:15 01/30/25 04:03 01/30/25 04:00 01/30/25 04:00 01/30/25 04:00 01/30/25 03:51 01/30/25 03:33 01/30/25 03:30 01/30/25 03:30 01/30/25 03:15 01/30/25 03:03 01/30/25 03:02 01/30/25 03:02 01/30/25 03:02 01/30/25 03:00 01/30/25 03:00 Laboratory Results 01/30/25 04:44 01/30/25 04:44 WBC 18.43 H RBC 3.09 L MCV 88.7 MCH 29.4 MCHC 33.2 RDW Std Deviation 53.8 H RDW Coeff of Addie 16.6 H Plt Count 455 H MPV 9.1 L Phosphorus 2.3 L
[2025-01-30 18:56] LABS: Magnesium 2.1 mg/dl (1.7-2.4); Potassium 3.8 mmol/L (3.5-5.1)
[2025-01-30] MEDS: ICU ELECTROLYTE REPLACEMENT PROTOCOL SCH (18:59)
[2025-01-30 19:04] LABS: Phosphorus 3.3 mg/dl (2.5-4.9)
[2025-01-30] MEDS: DOXYCYCLINE HYCLATE 100 MG CAP PO SCH (20:09)
[2025-01-31 04:57] LABS: Hematocrit (blood only) 26.4 % (37.0-47.0); Hemoglobin 8.6 g/dl (12.0-16.0); Mean Corpuscular Hemoglobin 29.1 pg (25.0-34.0); Mean Corpuscular Hgb Conc 32.6 g/dL (32.0-36.0); Mean Corpuscular Volume 89.2 fL (80.0-100.0); Mean Platelet Volume 9.4 fL (9.4-12.4); Platelet Count 422 K/uL (130-400); RDW Coefficient of Variation 17.2 % (11.5-14.5); RDW Standard Deviation 55.7 fL (36.4-46.3); Red Blood Count 2.96 M/uL (4.20-5.40); White Blood Count 25.13 K/ul (4.8-10.8)
[2025-01-31 05:14] LABS: Calcium 7.5 mg/dl (8.6-10.3); Creatinine Clr Calc Pharmacy 28.3 ml/min; Phosphorus 3.9 mg/dl (2.5-4.9); Potassium 3.3 mmol/L (3.5-5.1)
[2025-01-31 05:20] LABS: Basophils # (auto) 0.03 K/uL (0.00-0.20); Basophils % (auto) 0.1 %; Eosinophils # (auto) 0.01 K/uL (0.00-0.50); Immature Granulocytes # (auto) 0.23 K/uL (0.01-0.20); Immature Granulocytes % (auto) 0.9 %; Lymphocytes % (auto) 2.8 %; Monocytes # (auto) 0.66 K/uL (0.11-0.59); Monocytes % (auto) 2.6 %; Neutrophils % (auto) 93.6 %; Ovalocytes 1+; Polychromasia 1+
[2025-01-31] MEDS: MAGNESIUM OXIDE 400 MG TAB PO ONE ×2 (06:06→20:06)
[2025-01-31] MEDS: POTASSIUM CHLORIDE CRTAB 20 MEQ TABCR PO SCH (06:06)
[2025-01-31] MEDS ORDERED: Nursing to Pharmacy Communication SCH (06:15)
[2025-01-31] MEDS: INSULIN ASPART PER UNIT CHARGE SC SCH (06:21)
[2025-01-31] MEDS: POTASSIUM CHLORIDE / WTR 10 MEQ/100 ML PLCT IV SCH (06:31)
[2025-01-31] MEDS: MAGNESIUM SULFATE / D5W 1 GM/100 ML BAG IV ONE (06:31)
[2025-01-31 08:39] LABS: Estimated Average Glucose 103 mg/dl; Hemoglobin A1C 5.2 % (4.5-5.6)
--- NOTE | 2025-01-31 09:00 | Critical Care Progress Note ---
Date of Service January 31, 2025 Assessment & Plan (1) Septic shock: Plan: Reason Critically Ill: 84-year-old female presents to the ICU with septic shock source, status post bilateral ureteral stent exchange with urology. She required vasopressor support with Levophed drip Recommendations Neuro -no current issues. Continue to follow clinically. Cardiac -presumptive septic shock secondary to presumptive Klebsiella UTI. Intermittently on pressors and currently requiring them. On steroids for relative adrenal insufficiency, see comments below. Adequately volume resuscitated Respiratory -no current issues GI -advancing diet as tolerated. Significant diarrhea associated with antibiotics. C. difficile negative. Continue Rocephin and doxycycline. Continue Imodium RENAL/LYTES -acute renal failure. Suspect some component of ATN versus concomitant prerenal azotemia. Continue to follow currently. Creatinine improving. Defer IV fluids to the resident services supervisor. -bilateral stents in place. 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 Would favor replacing stents. Do not think she needs antifungal systemic therapies ENDO - relative adrenal insufficiency. Continue hydrocortisone and Florinef. Glycemic control per protocol HEME - Hemoglobin low. No evidence of blood loss. Will follow clinically at this point time ID - Sepsislikely due to urinary source. Previous UTIs with Klebsiella. Continue Rocephin for total of 7 days of antibiotic. Given the Tatum tropicalis on the urine culture, would recommend exchanging ureteral stents. Patient n.p.o. for possible stent exchange today. LINES/IV ACCESS - Peripheral IVs. DVT PROPHYLAXIS - SCDs, hold anticoagulation for now following ureteral stent exchange Will observe in the ICU for now pending stabilization of her hemodynamic status. Discussed with patient, bedside ICU nurse, and on multidisciplinary rounds. CRITICAL CARE TIME I have personally spent 37 minutes of critical care time in the direct management of this patient. This is a life/limb threatening event. This includes time spent evaluating patient, direct bedside care, chart review, placing orders, interpretation of diagnostic studies, discussion with consultants, patient, and family members, as well as other required patient management activities. This time is exclusive of all separately billable procedures, and teaching time and separate from and in addition to any other critical care service time. (2) Urinary tract infection: (3) Metabolic acidosis: Admission and Anticipated Discharge Date Admission Date: January 29, 2025 Subjective Patient seen and examined. She denies any pain or shortness of breath. Lying in bed. Remains on low-dose via peripheral IV Levophed. Review of Systems Review of Systems: All systems reviewed & are unremarkable except as noted in HPI & below Physical Exam Constitutional: WD/WN, vitals as above Neck: trachea midline, no thyromegaly Respiratory: normal respiratory effort, lungs clear to auscultation Cardiovascular: RRR, no murmur, no edema Gastrointestinal (Abdomen): normal bowel sounds, soft, nontender, no hepatosplenomegaly Musculoskeletal: Extremities: extremities normal to inspection Skin: no rashes, warm and dry Lymphatic: no cervical lymphadenopathy Results & Data Results & Data Vital Signs (Past 12 Hours) Vital Signs Temp Pulse Pulse Resp BP BP Pulse Ox 01/31/25 08:00 37.5 C 80 12 105/52 L 97 01/31/25 07:45 37.5 C 86 13 104/54 L 97 01/31/25 07:30 37.4 C 75 16 107/54 L 97 01/31/25 07:15 37.5 C 83 14 110/54 L 96 01/31/25 07:00 37.5 C 86 16 110/51 L 97 01/31/25 05:50 37.4 C 79 12 96 01/31/25 05:48 92/46 L 01/31/25 05:44 37.5 C 83 12 96 01/31/25 05:32 37.5 C 81 12 95 01/31/25 05:30 99/48 L 01/31/25 05:29 37.5 C 82 16 96 01/31/25 05:17 37.5 C 79 16 97 01/31/25 05:15 104/56 L 01/31/25 05:08 37.4 C 83 19 94 01/31/25 05:02 37.4 C 82 13 96 01/31/25 05:00 88/51 L 01/31/25 04:50 37.4 C 82 11 L 96 01/31/25 04:45 106/56 L 01/31/25 04:32 37.4 C 85 12 96 01/31/25 04:30 109/60 01/31/25 04:02 37.4 C 90 14 97 01/31/25 03:47 37.5 C 80 16 96 01/31/25 03:45 84/46 L 01/31/25 03:35 92/45 L 01/31/25 03:35 92/45 L 01/31/25 03:20 37.6 C H 82 14 96 01/31/25 03:15 91/46 L 01/31/25 03:02 92/48 L 01/31/25 02:59 37.7 C H 85 13 95 01/31/25 02:48 98/49 L 01/31/25 02:38 37.7 C H 87 14 96 01/31/25 02:33 37.7 C H 92 H 15 96 01/31/25 02:30 100/52 L 01/31/25 02:24 37.7 C H 86 16 95 01/31/25 02:15 37.7 C H 86 16 95 01/31/25 02:15 98/49 L 01/31/25 02:06 37.7 C H 95 H 15 95 01/31/25 02:00 91/50 L 01/31/25 01:54 37.7 C H 87 14 95 01/31/25 01:48 37.7 C H 88 14 95 01/31/25 01:45 96/48 L 01/31/25 01:33 37.7 C H 87 14 95 01/31/25 01:30 101/47 L 01/31/25 01:24 37.7 C H 90 14 95 01/31/25 01:21 37.6 C H 89 14 95 01/31/25 01:15 99/48 L 01/31/25 01:09 37.6 C H 87 16 95 01/31/25 01:00 37.6 C H 83 14 96 01/31/25 01:00 103/51 L 01/31/25 00:37 81/41 L 01/31/25 00:30 37.6 C H 84 13 95 01/31/25 00:30 92/45 L 01/31/25 00:15 37.5 C 84 13 95 01/31/25 00:15 97/45 L 01/31/25 00:12 37.5 C 84 14 96 01/31/25 00:00 86 01/31/25 00:00 112/56 L 01/30/25 23:51 37.4 C 89 19 97 01/30/25 23:48 37.4 C 83 11 L 97 01/30/25 23:45 100/56 L 01/30/25 23:42 37.5 C 86 15 96 01/30/25 23:33 37.5 C 81 13 96 01/30/25 23:30 84/50 L 01/30/25 23:27 37.5 C 81 13 96 01/30/25 23:18 37.5 C 81 12 95 01/30/25 23:15 90/48 L 01/30/25 23:09 37.5 C 80 13 89 L 01/30/25 23:00 103/54 L 01/30/25 22:54 37.5 C 81 13 96 01/30/25 22:48 37.5 C 76 11 L 96 O2 Del Method 01/31/25 08:00 Room Air 01/31/25 07:45 Room Air 01/31/25 07:30 Room Air 01/31/25 07:15 Room Air 01/31/25 07:00 Room Air 01/31/25 05:50 01/31/25 05:48 01/31/25 05:44 01/31/25 05:32 01/31/25 05:30 01/31/25 05:29 01/31/25 05:17 01/31/25 05:15 01/31/25 05:08 01/31/25 05:02 01/31/25 05:00 01/31/25 04:50 01/31/25 04:45 01/31/25 04:32 01/31/25 04:30 01/31/25 04:02 01/31/25 03:47 01/31/25 03:45 01/31/25 03:35 01/31/25 03:35 01/31/25 03:20 01/31/25 03:15 01/31/25 03:02 01/31/25 02:59 01/31/25 02:48 01/31/25 02:38 01/31/25 02:33 01/31/25 02:30 01/31/25 02:24 01/31/25 02:15 01/31/25 02:15 01/31/25 02:06 01/31/25 02:00 01/31/25 01:54 01/31/25 01:48 01/31/25 01:45 01/31/25 01:33 01/31/25 01:30 01/31/25 01:24 01/31/25 01:21 01/31/25 01:15 01/31/25 01:09 01/31/25 01:00 01/31/25 01:00 01/31/25 00:37 01/31/25 00:30 01/31/25 00:30 01/31/25 00:15 01/31/25 00:15 01/31/25 00:12 01/31/25 00:00 01/31/25 00:00 01/30/25 23:51 01/30/25 23:48 01/30/25 23:45 01/30/25 23:42 01/30/25 23:33 01/30/25 23:30 01/30/25 23:27 01/30/25 23:18 01/30/25 23:15 01/30/25 23:09 01/30/25 23:00 01/30/25 22:54 01/30/25 22:48 Coding Level of Care Code 90222 CRITICAL CARE 1ST 30-74M Diagnoses Septic shock A41.9; R65.21 Urinary tract infection N39.0 Metabolic acidosis E87.20
[2025-01-31] MEDS: FLUCONAZOLE 200 MG/100 ML BAG IV SCH (10:23)
[2025-01-31] MEDS: CALCIUM GLUCONATE 10% 1,000 MG in NS X2 BAGS IV SCH (10:42)
--- NOTE | 2025-01-31 10:58 | Urology Progress Note ---
Date of Service January 31, 2025 Assessment & Plan (1) Ureteral stent present: (2) Bilateral kidney stones: Plan: Presented acutely ill with urosepsis She is afebrile Remains in ICU, on Levophed Labs reviewedcreatinine 1.2, WBC 25.13, 8.6 Blood cultures with no growth to date Urine culture with Tatum tropicalis She is on empiric antibiotics She was started on antifungals this morning Recommend at least 24 hours of antifungal coverage prior to bilateral stent exchange Will plan for bilateral stent exchange tomorrow, make NPO at midnight Maintain Santillan catheter Continue antibiotics, antifungals and medical management per hospitalist/coach professional athletes team will sign off, please contact our service with any additional questions/concerns Admission and Anticipated Discharge Date Admission Date: January 29, 2025 Subjective Patient seen and examined at bedside this morning. She is awake and resting in bed. Denies pain. Santillan intact. Afebrile this morning. Review of Systems Constitutional: as per Subjective / HPI Genitourinary: as per Subjective / HPI Physical Exam Constitutional: no acute distress Respiratory: normal respiratory effort; no respiratory distress and no labored breathing Gastrointestinal (Abdomen): Inspection/Auscultation: abdomen normal to inspection Musculoskeletal: Head/Neck/Chest: normocephalic Neurologic: moves all extremities and awake Psychiatric: Orientation: alert and oriented x 3 Genitourinary: Santillan draining Results & Data Vital Signs (Past 12 Hours) Vital Signs Temp Pulse Pulse Resp BP BP Pulse Ox 01/31/25 10:00 37.4 C 80 22 97/48 L 96 01/31/25 09:45 37.4 C 84 14 88/47 L 97 01/31/25 09:30 37.4 C 83 19 93/44 L 93 01/31/25 09:18 37.4 C 83 15 112/63 96 01/31/25 09:00 37.4 C 85 18 105/53 L 97 01/31/25 08:45 37.4 C 85 18 103/47 L 96 01/31/25 08:30 37.4 C 86 16 101/47 L 96 01/31/25 08:15 37.4 C 84 17 108/56 L 97 01/31/25 08:00 37.5 C 80 12 105/52 L 97 01/31/25 07:45 37.5 C 86 13 104/54 L 97 01/31/25 07:30 37.4 C 75 16 107/54 L 97 01/31/25 07:15 37.5 C 83 14 110/54 L 96 01/31/25 07:00 37.5 C 86 16 110/51 L 97 01/31/25 05:50 37.4 C 79 12 96 01/31/25 05:48 92/46 L 01/31/25 05:44 37.5 C 83 12 96 01/31/25 05:32 37.5 C 81 12 95 01/31/25 05:30 99/48 L 01/31/25 05:29 37.5 C 82 16 96 01/31/25 05:17 37.5 C 79 16 97 01/31/25 05:15 104/56 L 01/31/25 05:08 37.4 C 83 19 94 01/31/25 05:02 37.4 C 82 13 96 01/31/25 05:00 88/51 L 01/31/25 04:50 37.4 C 82 11 L 96 01/31/25 04:45 106/56 L 01/31/25 04:32 37.4 C 85 12 96 01/31/25 04:30 109/60 01/31/25 04:02 37.4 C 90 14 97 01/31/25 03:47 37.5 C 80 16 96 01/31/25 03:45 84/46 L 01/31/25 03:35 92/45 L 01/31/25 03:35 92/45 L 01/31/25 03:20 37.6 C H 82 14 96 01/31/25 03:15 91/46 L 01/31/25 03:02 92/48 L 01/31/25 02:59 37.7 C H 85 13 95 01/31/25 02:48 98/49 L 01/31/25 02:38 37.7 C H 87 14 96 01/31/25 02:33 37.7 C H 92 H 15 96 01/31/25 02:30 100/52 L 01/31/25 02:24 37.7 C H 86 16 95 01/31/25 02:15 37.7 C H 86 16 95 01/31/25 02:15 98/49 L 01/31/25 02:06 37.7 C H 95 H 15 95 01/31/25 02:00 91/50 L 01/31/25 01:54 37.7 C H 87 14 95 01/31/25 01:48 37.7 C H 88 14 95 01/31/25 01:45 96/48 L 01/31/25 01:33 37.7 C H 87 14 95 01/31/25 01:30 101/47 L 01/31/25 01:24 37.7 C H 90 14 95 01/31/25 01:21 37.6 C H 89 14 95 01/31/25 01:15 99/48 L 01/31/25 01:09 37.6 C H 87 16 95 01/31/25 01:00 37.6 C H 83 14 96 01/31/25 01:00 103/51 L 01/31/25 00:37 81/41 L 01/31/25 00:30 37.6 C H 84 13 95 01/31/25 00:30 92/45 L 01/31/25 00:15 37.5 C 84 13 95 01/31/25 00:15 97/45 L 01/31/25 00:12 37.5 C 84 14 96 01/31/25 00:00 86 01/31/25 00:00 112/56 L 01/30/25 23:51 37.4 C 89 19 97 01/30/25 23:48 37.4 C 83 11 L 97 01/30/25 23:45 100/56 L 01/30/25 23:42 37.5 C 86 15 96 01/30/25 23:33 37.5 C 81 13 96 01/30/25 23:30 84/50 L 01/30/25 23:27 37.5 C 81 13 96 01/30/25 23:18 37.5 C 81 12 95 01/30/25 23:15 90/48 L 01/30/25 23:09 37.5 C 80 13 89 L 01/30/25 23:00 103/54 L O2 Del Method 01/31/25 10:00 Room Air 01/31/25 09:45 Room Air 01/31/25 09:30 Room Air 01/31/25 09:18 Room Air 01/31/25 09:00 Room Air 01/31/25 08:45 Room Air 01/31/25 08:30 Room Air 01/31/25 08:15 Room Air 01/31/25 08:00 Room Air 01/31/25 07:45 Room Air 01/31/25 07:30 Room Air 01/31/25 07:15 Room Air 01/31/25 07:00 Room Air 01/31/25 05:50 01/31/25 05:48 01/31/25 05:44 01/31/25 05:32 01/31/25 05:30 01/31/25 05:29 01/31/25 05:17 01/31/25 05:15 01/31/25 05:08 01/31/25 05:02 01/31/25 05:00 01/31/25 04:50 01/31/25 04:45 01/31/25 04:32 01/31/25 04:30 01/31/25 04:02 01/31/25 03:47 01/31/25 03:45 01/31/25 03:35 01/31/25 03:35 01/31/25 03:20 01/31/25 03:15 01/31/25 03:02 01/31/25 02:59 01/31/25 02:48 01/31/25 02:38 01/31/25 02:33 01/31/25 02:30 01/31/25 02:24 01/31/25 02:15 01/31/25 02:15 01/31/25 02:06 01/31/25 02:00 01/31/25 01:54 01/31/25 01:48 01/31/25 01:45 01/31/25 01:33 01/31/25 01:30 01/31/25 01:24 01/31/25 01:21 01/31/25 01:15 01/31/25 01:09 01/31/25 01:00 01/31/25 01:00 01/31/25 00:37 01/31/25 00:30 01/31/25 00:30 01/31/25 00:15 01/31/25 00:15 01/31/25 00:12 01/31/25 00:00 01/31/25 00:00 01/30/25 23:51 01/30/25 23:48 01/30/25 23:45 01/30/25 23:42 01/30/25 23:33 01/30/25 23:30 01/30/25 23:27 01/30/25 23:18 01/30/25 23:15 01/30/25 23:09 01/30/25 23:00 PG Care Time/CCT Total # of Minutes Spent Total Time Spent with Patient: Total time spent is greater than 50% in coordination of care (as documented) at patient's floor/unit and/or counseling patient: Coding Level of Care Code 28469 SUB INP/OBS CARE 2/35MIN Diagnoses Ureteral stent present Z96.0 Bilateral kidney stones N20.0
--- NOTE | 2025-01-31 13:32 | Nephrology Progress Note ---
Date of Service January 31, 2025 Assessment & Plan (1) MALINA (acute kidney injury): Plan: Patient with the acute kidney injury due to ischemic ATN in setting of sepsis. Admission creatinine of 1.6 but downtrending 1.2 today. she has hypokalemia of 3.3. No indication for dialysis. Will continue monitor input output. Avoid nephrotoxins such as contrast. Renally dose antibiotics for current GFR. Avoid hypotension. Will continue Plasmalyte at 150 mL/hour. (2) Metabolic acidosis: Plan: metabolic acidosis has improved with improving renal function. Will continue Plasmalyte. Will continue monitor closely. (3) Electrolyte abnormality: Plan: Potassium was 3.3 today. recommend potassium chloride 40 mEq 1 time today. Continue to monitor and supplement as needed to maintain potassium above 3.5 (4) Ureteral stent present: Plan: patient has a ureteral stent. patient most likely need stent removal due to fungal infection. Urine is growing Tatum species. Tatum is difficult to clear in the presence of a foreign body in this case stent. Urology is following. Admission and Anticipated Discharge Date Admission Date: January 29, 2025 Subjective She feels better today. No flank pain. Diarrhea has subsided. No shortness of breath. Blood pressure remains soft. Review of Systems 2 Review of Systems: All other systems were reviewed and negative except as noted in HPI Physical Exam 2 Physical Exam: General exam: Appears comfortable, no acute distress HEENT: Pupils are equal and reactive to light Neck: No JVD, neck is supple trachea is midline Respiratory system: Clear breath sounds bilaterally. Gastrointestinal: Abdomen is soft, non distended, non tender, bowel sounds are present CVS: Regular rate and rhythm. No murmurs, rubs or gallops Musculoskeletal: No flank tenderness Extremities: Non tender, no edema, peripheral pulses are present Neuro: Oriented, no tremors, no focal neurological deficits Skin: No rashes Results & Data Vital Signs (Past 12 Hours) Vital Signs Temp Pulse Pulse Resp BP BP Pulse Ox 01/31/25 11:30 37.5 C 79 21 108/57 L 98 01/31/25 11:15 37.4 C 59 L 17 106/57 L 94 01/31/25 11:00 37.4 C 81 16 113/50 L 98 01/31/25 11:00 37.4 C 78 15 113/50 L 98 01/31/25 10:45 37.4 C 76 18 102/54 L 92 01/31/25 10:30 37.4 C 70 14 90/51 L 97 01/31/25 10:15 37.4 C 79 16 98/48 L 97 01/31/25 10:00 37.4 C 80 22 97/48 L 96 01/31/25 09:45 37.4 C 84 14 88/47 L 97 01/31/25 09:30 37.4 C 83 19 93/44 L 93 01/31/25 09:18 37.4 C 83 15 112/63 96 01/31/25 09:00 37.4 C 85 18 105/53 L 97 01/31/25 08:45 37.4 C 85 18 103/47 L 96 01/31/25 08:30 37.4 C 86 16 101/47 L 96 01/31/25 08:15 37.4 C 84 17 108/56 L 97 01/31/25 08:00 37.5 C 80 12 105/52 L 97 01/31/25 07:45 37.5 C 86 13 104/54 L 97 01/31/25 07:30 37.4 C 75 16 107/54 L 97 01/31/25 07:15 37.5 C 83 14 110/54 L 96 01/31/25 07:00 37.5 C 86 16 110/51 L 97 01/31/25 05:50 37.4 C 79 12 96 01/31/25 05:48 92/46 L 01/31/25 05:44 37.5 C 83 12 96 01/31/25 05:32 37.5 C 81 12 95 01/31/25 05:30 99/48 L 01/31/25 05:29 37.5 C 82 16 96 01/31/25 05:17 37.5 C 79 16 97 01/31/25 05:15 104/56 L 01/31/25 05:08 37.4 C 83 19 94 01/31/25 05:02 37.4 C 82 13 96 01/31/25 05:00 88/51 L 01/31/25 04:50 37.4 C 82 11 L 96 01/31/25 04:45 106/56 L 01/31/25 04:32 37.4 C 85 12 96 01/31/25 04:30 109/60 01/31/25 04:02 37.4 C 90 14 97 01/31/25 03:47 37.5 C 80 16 96 01/31/25 03:45 84/46 L 01/31/25 03:35 92/45 L 01/31/25 03:35 92/45 L 01/31/25 03:20 37.6 C H 82 14 96 01/31/25 03:15 91/46 L 01/31/25 03:02 92/48 L 01/31/25 02:59 37.7 C H 85 13 95 01/31/25 02:48 98/49 L 01/31/25 02:38 37.7 C H 87 14 96 01/31/25 02:33 37.7 C H 92 H 15 96 01/31/25 02:30 100/52 L 01/31/25 02:24 37.7 C H 86 16 95 01/31/25 02:15 37.7 C H 86 16 95 01/31/25 02:15 98/49 L 01/31/25 02:06 37.7 C H 95 H 15 95 01/31/25 02:00 91/50 L 01/31/25 01:54 37.7 C H 87 14 95 01/31/25 01:48 37.7 C H 88 14 95 01/31/25 01:45 96/48 L 01/31/25 01:33 37.7 C H 87 14 95 01/31/25 01:30 101/47 L O2 Del Method 01/31/25 11:30 Room Air 01/31/25 11:15 Room Air 01/31/25 11:00 Room Air 01/31/25 11:00 01/31/25 10:45 Room Air 01/31/25 10:30 Room Air 01/31/25 10:15 Room Air 01/31/25 10:00 Room Air 01/31/25 09:45 Room Air 01/31/25 09:30 Room Air 01/31/25 09:18 Room Air 01/31/25 09:00 Room Air 01/31/25 08:45 Room Air 01/31/25 08:30 Room Air 01/31/25 08:15 Room Air 01/31/25 08:00 Room Air 01/31/25 07:45 Room Air 01/31/25 07:30 Room Air 01/31/25 07:15 Room Air 01/31/25 07:00 Room Air 01/31/25 05:50 01/31/25 05:48 01/31/25 05:44 01/31/25 05:32 01/31/25 05:30 01/31/25 05:29 01/31/25 05:17 01/31/25 05:15 01/31/25 05:08 01/31/25 05:02 01/31/25 05:00 01/31/25 04:50 01/31/25 04:45 01/31/25 04:32 01/31/25 04:30 01/31/25 04:02 01/31/25 03:47 01/31/25 03:45 01/31/25 03:35 01/31/25 03:35 01/31/25 03:20 01/31/25 03:15 01/31/25 03:02 01/31/25 02:59 01/31/25 02:48 01/31/25 02:38 01/31/25 02:33 01/31/25 02:30 01/31/25 02:24 01/31/25 02:15 01/31/25 02:15 01/31/25 02:06 01/31/25 02:00 01/31/25 01:54 01/31/25 01:48 01/31/25 01:45 01/31/25 01:33 01/31/25 01:30 Laboratory Results 01/31/25 04:20 01/30/25 01/31/25 18:33 04:20 WBC 25.13 H RBC 2.96 L MCV 89.2 MCH 29.1 MCHC 32.6 RDW Std Deviation 55.7 H RDW Coeff of Addie 17.2 H Plt Count 422 H MPV 9.4 Phosphorus 3.3 D 3.9
--- NOTE | 2025-01-31 13:54 | Hospitalist Progress Note ---
Date of Service January 31, 2025 Assessment & Plan (1) Septic shock: (2) Complicated urinary tract infection: Plan: Ureteral stents, Tatum, presumed Klebsiella (3) Right upper lobe pneumonia: (4) Metabolic acidosis: (5) Ureteral stent present: (6) Electrolyte abnormality: (7) Chronic renal failure (CRF), stage 3b: (8) Diarrhea due to drug: (9) Acute retention of urine: Plan Patient with septic shock due to presumed urinary tract infection positive bacterial and fungal. Continued fevers and pressor requirement Continue to support blood pressure as needed with pressors Fluconazole started for Tatum growing in urine Reviewed urology note, anticipates stent exchange tomorrow Urinary retention overnight, Santillan placed, suspected debris in bladder from recent urological procedure. Replace potassium Continue ceftriaxone for presumed Klebsiella UTI Monitor laboratory studies Admission and Anticipated Discharge Date Admission Date: January 29, 2025 Subjective Patient with acute events overnight, spiked a fever and required to be placed back on Levophed. This morning feeling tired and fatigued. No chest pain, no shortness of breath. Nursing reports a large amount of debris from Santillan catheter overnight. Physical Exam Physical Exam: Constitutional: Alert, moderately ill in appearance HEENT: Mucous membranes moist. Lungs: Clear to auscultation, decreased, no wheezes rales or rhonchi CV: S1-S2, regular Abdomen: Soft, nontender, nondistended Extremities: No significant edema Neuro: No focal deficits Psych: Cooperative, normal mood Results & Data Results & Data Vital Signs (Past 12 Hours) Vital Signs Temp Pulse Pulse Resp BP BP Pulse Ox 01/31/25 11:30 37.5 C 79 21 108/57 L 98 01/31/25 11:15 37.4 C 59 L 17 106/57 L 94 01/31/25 11:00 37.4 C 81 16 113/50 L 98 01/31/25 11:00 37.4 C 78 15 113/50 L 98 01/31/25 10:45 37.4 C 76 18 102/54 L 92 01/31/25 10:30 37.4 C 70 14 90/51 L 97 01/31/25 10:15 37.4 C 79 16 98/48 L 97 01/31/25 10:00 37.4 C 80 22 97/48 L 96 01/31/25 09:45 37.4 C 84 14 88/47 L 97 01/31/25 09:30 37.4 C 83 19 93/44 L 93 01/31/25 09:18 37.4 C 83 15 112/63 96 01/31/25 09:00 37.4 C 85 18 105/53 L 97 01/31/25 08:45 37.4 C 85 18 103/47 L 96 01/31/25 08:30 37.4 C 86 16 101/47 L 96 01/31/25 08:15 37.4 C 84 17 108/56 L 97 01/31/25 08:00 37.5 C 80 12 105/52 L 97 01/31/25 07:45 37.5 C 86 13 104/54 L 97 01/31/25 07:30 37.4 C 75 16 107/54 L 97 01/31/25 07:15 37.5 C 83 14 110/54 L 96 01/31/25 07:00 37.5 C 86 16 110/51 L 97 01/31/25 05:50 37.4 C 79 12 96 01/31/25 05:48 92/46 L 01/31/25 05:44 37.5 C 83 12 96 01/31/25 05:32 37.5 C 81 12 95 01/31/25 05:30 99/48 L 01/31/25 05:29 37.5 C 82 16 96 01/31/25 05:17 37.5 C 79 16 97 01/31/25 05:15 104/56 L 01/31/25 05:08 37.4 C 83 19 94 01/31/25 05:02 37.4 C 82 13 96 01/31/25 05:00 88/51 L 01/31/25 04:50 37.4 C 82 11 L 96 01/31/25 04:45 106/56 L 01/31/25 04:32 37.4 C 85 12 96 01/31/25 04:30 109/60 01/31/25 04:02 37.4 C 90 14 97 01/31/25 03:47 37.5 C 80 16 96 01/31/25 03:45 84/46 L 01/31/25 03:35 92/45 L 01/31/25 03:35 92/45 L 01/31/25 03:20 37.6 C H 82 14 96 01/31/25 03:15 91/46 L 01/31/25 03:02 92/48 L 01/31/25 02:59 37.7 C H 85 13 95 01/31/25 02:48 98/49 L 01/31/25 02:38 37.7 C H 87 14 96 01/31/25 02:33 37.7 C H 92 H 15 96 01/31/25 02:30 100/52 L 01/31/25 02:24 37.7 C H 86 16 95 01/31/25 02:15 37.7 C H 86 16 95 01/31/25 02:15 98/49 L 01/31/25 02:06 37.7 C H 95 H 15 95 01/31/25 02:00 91/50 L 01/31/25 01:54 37.7 C H 87 14 95 O2 Del Method 01/31/25 11:30 Room Air 01/31/25 11:15 Room Air 01/31/25 11:00 Room Air 01/31/25 11:00 01/31/25 10:45 Room Air 01/31/25 10:30 Room Air 01/31/25 10:15 Room Air 01/31/25 10:00 Room Air 01/31/25 09:45 Room Air 01/31/25 09:30 Room Air 01/31/25 09:18 Room Air 01/31/25 09:00 Room Air 01/31/25 08:45 Room Air 01/31/25 08:30 Room Air 01/31/25 08:15 Room Air 01/31/25 08:00 Room Air 01/31/25 07:45 Room Air 01/31/25 07:30 Room Air 01/31/25 07:15 Room Air 01/31/25 07:00 Room Air 01/31/25 05:50 01/31/25 05:48 01/31/25 05:44 01/31/25 05:32 01/31/25 05:30 01/31/25 05:29 01/31/25 05:17 01/31/25 05:15 01/31/25 05:08 01/31/25 05:02 01/31/25 05:00 01/31/25 04:50 01/31/25 04:45 01/31/25 04:32 01/31/25 04:30 01/31/25 04:02 01/31/25 03:47 01/31/25 03:45 01/31/25 03:35 01/31/25 03:35 01/31/25 03:20 01/31/25 03:15 01/31/25 03:02 01/31/25 02:59 01/31/25 02:48 01/31/25 02:38 01/31/25 02:33 01/31/25 02:30 01/31/25 02:24 01/31/25 02:15 01/31/25 02:15 01/31/25 02:06 01/31/25 02:00 01/31/25 01:54 Diagnostic Findings Reviewed imaging, laboratory and diagnostic studies. Pertinent findings as below. WBCs 25.1, increased Hemoglobin 8.6 Platelets of 422 Potassium 3.3 Carbon dioxide 22 Creatinine 1.20
[2025-01-31 18:19] LABS: Magnesium 1.9 mg/dl (1.7-2.4); Phosphorus 2.8 mg/dl (2.5-4.9); Potassium 4.2 mmol/L (3.5-5.1)
[2025-01-31] MEDS: DICLOFENAC SOD 1% GEL 100 GM TUBE EXT PRN (20:04)
[2025-02-01 04:50] LABS: Calcium 7.3 mg/dl (8.6-10.3); Creatinine Clr Calc Pharmacy 34.6 ml/min; Magnesium 1.8 mg/dl (1.7-2.4); Phosphorus 2.7 mg/dl (2.5-4.9); Potassium 3.6 mmol/L (3.5-5.1)
[2025-02-01 05:24] LABS: Hematocrit (blood only) 24.6 % (37.0-47.0); Hemoglobin 8.1 g/dl (12.0-16.0); Mean Corpuscular Hemoglobin 29.5 pg (25.0-34.0); Mean Corpuscular Hgb Conc 32.9 g/dL (32.0-36.0); Mean Corpuscular Volume 89.5 fL (80.0-100.0); Mean Platelet Volume 9.3 fL (9.4-12.4); Platelet Count 335 K/uL (130-400); RDW Coefficient of Variation 16.5 % (11.5-14.5); RDW Standard Deviation 54.4 fL (36.4-46.3); Red Blood Count 2.75 M/uL (4.20-5.40); White Blood Count 13.09 K/ul (4.8-10.8)
[2025-02-01] MEDS: MAGNESIUM SULFATE / D5W 1 GM/100 ML BAG IV SCH (05:30)
[2025-02-01] MEDS: POTASSIUM CHLORIDE / WTR 10 MEQ/100 ML PLCT IV SCH (05:30)
[2025-02-01] MEDS: FLUCONAZOLE 200 MG/100 ML BAG IV SCH (08:29)
--- NOTE | 2025-02-01 09:12 | Urology Progress Note ---
Date of Service February 01, 2025 Assessment & Plan (1) Bilateral kidney stones: (2) Ureteral stent present: Plan: Presented acutely ill with urosepsis She is afebrile, stable vitals, no longer on Levophed Labs reviewedcreatinine 1.00, WBC improved to 13.09 Blood cultures with no growth to date Urine culture with Tatum tropicalis She is on empiric antibiotics; antifungals started yesterday Patient would like to proceed with stent exchange today as previously discussed Plan for cystoscopy and bilateral stent exchange today Keep NPO for procedure Maintain Santillan catheter Continue antibiotics, antifungals and medical management per hospitalist/founder and chief executive officer team will follow Admission and Anticipated Discharge Date Admission Date: January 29, 2025 Subjective Patient seen and examined at bedside. She is weak and resting in bed. Denies pain. No fever or chills. Santillan intact. Currently NPO. Review of Systems Constitutional: as per Subjective / HPI Genitourinary: as per Subjective / HPI Physical Exam Constitutional: no acute distress Respiratory: normal respiratory effort; no respiratory distress and no labored breathing Gastrointestinal (Abdomen): Inspection/Auscultation: abdomen normal to inspection Musculoskeletal: Head/Neck/Chest: normocephalic Neurologic: moves all extremities and awake Psychiatric: Orientation: alert and oriented x 3 Genitourinary: Santillan draining Results & Data Vital Signs (Past 12 Hours) Vital Signs Temp Pulse Pulse Resp BP BP Pulse Ox 02/01/25 07:00 37.0 C 68 18 102/52 L 98 02/01/25 06:00 37.1 C 65 16 110/46 L 97 02/01/25 05:00 37.2 C 65 15 112/57 L 97 02/01/25 04:00 37.1 C 64 16 107/56 L 98 02/01/25 03:00 37 C 68 20 106/61 97 02/01/25 02:00 36.9 C 69 21 122/59 L 98 02/01/25 01:00 36.5 C 69 15 108/58 L 97 02/01/25 00:01 36.7 C 66 20 116/58 L 97 01/31/25 23:00 36.8 C 65 13 89/46 L 95 01/31/25 22:00 36.9 C 66 14 98/52 L 96 O2 Del Method 02/01/25 07:00 Room Air 02/01/25 06:00 Room Air 02/01/25 05:00 Room Air 02/01/25 04:00 Room Air 02/01/25 03:00 02/01/25 02:00 Room Air 02/01/25 01:00 Room Air 02/01/25 00:01 Room Air 01/31/25 23:00 Room Air 01/31/25 22:00 Room Air PG Care Time/CCT Total # of Minutes Spent Total Time Spent with Patient: Total time spent is greater than 50% in coordination of care (as documented) at patient's floor/unit and/or counseling patient: Coding Level of Care Code 42914 SUB INP/OBS CARE 12/18MIN Diagnoses Bilateral kidney stones N20.0 Ureteral stent present Z96.0
--- NOTE | 2025-02-01 09:30 | Critical Care Progress Note ---
Date of Service February 01, 2025 Assessment & Plan (1) Septic shock: Plan: Reason Critically Ill: 84-year-old female presents to the ICU with septic shock source, status post bilateral ureteral stent exchange with urology. She required vasopressor support with Levophed drip Recommendations Neuro -no current issues. Continue to follow clinically. Continue home Remeron. Cardiac -presumptive septic shock secondary to presumptive Klebsiella UTI and Tatum tropicalis which is resolving. She is on hydrocortisone for relative adrenal insufficiency. Respiratory -CT chest 01/29/2025 with moderate white/area of consolidation in the superior aspect of the lower lobe suggestive of possible focal pneumonia. Patient on Rocephin and doxycycline. Repeat CT chest in about 3 months to ensure resolution. GI -advancing diet as tolerated. Significant diarrhea associated with antibiotics. C. difficile negative. Continue Imodium RENAL/LYTES -acute renal failure. Suspect some component of ATN versus concomitant prerenal azotemia. Continue to follow currently. Creatinine improving. Defer IV fluids to the supervisor webbing. -bilateral stents in place. 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 Stent replacement pending. ENDO - relative adrenal insufficiency. Continue hydrocortisone. Florinef discontinued. Glycemic control per protocol HEME - Hemoglobin low. No evidence of blood loss. Will follow clinically at this point time ID - Sepsislikely due to urinary source. Previous UTIs with Klebsiella. Now growing Tatum tropicalis. Continue Rocephin for total of 7 days of antibiotic. Given the Tatum tropicalis on the urine culture, would recommend exchanging ureteral stents. Patient n.p.o. for possible stent exchange today. Patient started on fluconazole day #2. With complete 14 days of fluconazole. Check periodic EKGs. Fluconazole dosing per pharmacy. LINES/IV ACCESS - Peripheral IVs. DVT PROPHYLAXIS - SCDs, hold anticoagulation for now following ureteral stent exchange Will observe in the ICU for now pending stabilization of her hemodynamic status. Discussed with patient, bedside ICU nurse, and on multidisciplinary rounds. (2) Urinary tract infection: (3) Metabolic acidosis: (4) Abnormal CT scan, chest: (5) Tatum tropicalis infection: Admission and Anticipated Discharge Date Admission Date: January 29, 2025 Subjective Hemodynamically she remained stable. She is alert and oriented. She is eager to undergo her stent exchange. She denies any significant nausea, vomiting, headache or chest pain. She is saturating well on room air. Review of Systems Review of Systems: All systems reviewed & are unremarkable except as noted in HPI & below Physical Exam Constitutional: WD/WN, vitals as above Neck: trachea midline, no thyromegaly Respiratory: normal respiratory effort, lungs clear to auscultation Cardiovascular: RRR, no murmur, no edema Gastrointestinal (Abdomen): normal bowel sounds, soft, nontender, no hepatosplenomegaly Musculoskeletal: Extremities: extremities normal to inspection Skin: no rashes, warm and dry Lymphatic: no cervical lymphadenopathy Results & Data Results & Data Vital Signs (Past 12 Hours) Vital Signs Temp Pulse Pulse Resp BP BP Pulse Ox 02/01/25 09:00 37.1 C 52 L 16 101/53 L 98 02/01/25 08:50 37.1 C 73 20 108/48 L 93 02/01/25 08:00 37.1 C 55 L 12 89/44 L 98 02/01/25 07:00 37.0 C 68 18 102/52 L 98 02/01/25 06:00 37.1 C 65 16 110/46 L 97 02/01/25 05:00 37.2 C 65 15 112/57 L 97 02/01/25 04:00 37.1 C 64 16 107/56 L 98 02/01/25 03:00 37 C 68 20 106/61 97 02/01/25 02:00 36.9 C 69 21 122/59 L 98 02/01/25 01:00 36.5 C 69 15 108/58 L 97 02/01/25 00:01 36.7 C 66 20 116/58 L 97 01/31/25 23:00 36.8 C 65 13 89/46 L 95 01/31/25 22:00 36.9 C 66 14 98/52 L 96 O2 Del Method 02/01/25 09:00 Room Air 02/01/25 08:50 Room Air 02/01/25 08:00 02/01/25 07:00 Room Air 02/01/25 06:00 Room Air 02/01/25 05:00 Room Air 02/01/25 04:00 Room Air 02/01/25 03:00 02/01/25 02:00 Room Air 02/01/25 01:00 Room Air 02/01/25 00:01 Room Air 01/31/25 23:00 Room Air 01/31/25 22:00 Room Air Coding Level of Care Code 38330 SUB INP/OBS CARE 2/35MIN Diagnoses Septic shock A41.9; R65.21 Urinary tract infection N39.0 Metabolic acidosis E87.[address] scan, chest R93.89 Tatum tropicalis infection B37.9
[2025-02-01] MEDS: CALCIUM GLUCONATE 1,000 MG/60 ML BAG IV SCH (10:06)
--- NOTE | 2025-02-01 11:07 | Hospitalist Progress Note ---
Date of Service February 01, 2025 Assessment & Plan (1) Septic shock: (2) Complicated urinary tract infection: Plan: Ureteral stents, Tatum, presumed Klebsiella (3) Tatum tropicalis infection: (4) Right upper lobe pneumonia: (5) Metabolic acidosis: (6) Ureteral stent present: (7) Electrolyte abnormality: (8) Chronic renal failure (CRF), stage 3b: (9) Diarrhea due to drug: (10) Acute retention of urine: Plan Patient overall seems to be responding to treatment. Off Levophed since yesterday. Reviewed urology notation, anticipate going to the operating room today for stent exchange and cystoscopy Communication with head custodian, infectious disease consultation due to reported intermediate sensitivity of Tatum to fluconazole Continue to monitor laboratory studies Updated patient's daughter via phone Admission and Anticipated Discharge Date Admission Date: January 29, 2025 Subjective Patient resting this morning. No acute events overnight. Was weaned off Levophed yesterday, however blood pressure soft this morning. Denies any pain. Physical Exam Physical Exam: Constitutional: Alert, moderately ill HEENT: Mucous membranes moist. Lungs: Decreased breath sounds CV: S1-S2, regular Abdomen: Soft, nontender, nondistended Extremities: No significant edema Neuro: No focal deficits Psych: Cooperative, normal mood Results & Data Results & Data Vital Signs (Past 12 Hours) Vital Signs Temp Pulse Pulse Resp BP BP Pulse Ox 02/01/25 10:00 37.0 C 62 14 122/58 L 97 02/01/25 09:00 37.1 C 52 L 16 101/53 L 98 02/01/25 08:50 37.1 C 73 20 108/48 L 93 02/01/25 08:00 37.1 C 55 L 12 89/44 L 98 02/01/25 07:00 37.0 C 68 18 102/52 L 98 02/01/25 06:00 37.1 C 65 16 110/46 L 97 02/01/25 05:00 37.2 C 65 15 112/57 L 97 02/01/25 04:00 37.1 C 64 16 107/56 L 98 02/01/25 03:00 37 C 68 20 106/61 97 02/01/25 02:00 36.9 C 69 21 122/59 L 98 02/01/25 01:00 36.5 C 69 15 108/58 L 97 02/01/25 00:01 36.7 C 66 20 116/58 L 97 O2 Del Method 02/01/25 10:00 Room Air 02/01/25 09:00 Room Air 02/01/25 08:50 Room Air 02/01/25 08:00 02/01/25 07:00 Room Air 02/01/25 06:00 Room Air 02/01/25 05:00 Room Air 02/01/25 04:00 Room Air 02/01/25 03:00 02/01/25 02:00 Room Air 02/01/25 01:00 Room Air 02/01/25 00:01 Room Air Diagnostic Findings Reviewed imaging, laboratory and diagnostic studies. Pertinent findings as below. WBCs 13.09, improved Hemoglobin 8.1 Report from pharmacy, outside microbiology indicated that previous Tatum was intermediate sensitivity to fluconazole.
[2025-02-01] MEDS ORDERED: DEXAMETHASONE SOD INJ 4 MG/ML VIAL ONE (11:18)
[2025-02-01] MEDS ORDERED: PROPOFOL IV EMULSION 10 MG/ML 20 ML VIAL IV ONE (11:18)
[2025-02-01] MEDS ORDERED: ONDANSETRON INJ 2 MG/ML 2 ML VIAL ONE (11:18)
[2025-02-01] MEDS ORDERED: LIDOCAINE 2% 2 ML VIAL/AMP(20MG/ML) INFIL ONE (11:18)
[2025-02-01] MEDS ORDERED: fentaNYL citrate PF 100 MCG/2 ML VIAL ONE (11:19)
[2025-02-01] MEDS ORDERED: GLYCOPYRROLATE 0.2 MG/ML VIAL ONE (11:20)
--- NOTE | 2025-02-01 11:27 | Infectious Disease Consult ---
Date of Consultation February 01, 2025 Assessment & Plan (1) Anna tropicalis infection: (2) Right upper lobe pneumonia: (3) Ureteral stent present: (4) Bilateral kidney stones: Plan 84yo F with h/o bl obstructing renal stones with hydronephrosis s/p bl ureteral stent with left laser stone destruction 09/2024, admission 11/23-11/1124 with septic shock 2/2 recurrent UTI (cx with Klebsiella, s/p augmentin x 14d) s/p bl stent exchange 11/23/24, ongoing stone burden and underwent bl stent exchange with right lithotripsy 01/13/25, bilateral TKA in 2020, right periprosthetic fracture around knee 09/2024 s/p right femur ORIF, 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 She had seen urology on 01/28 due to urinary symptoms and was sent home on cefuroxime, however symptoms persisted. On admission, she was febrile, hypotensive to 70-80s, satting well on RA. Initial labs with WBC 13.23, Cr 1.68, AST/ALT wnl. Lactate 1.3. Troponin negative. PCT 0.28. UA > 50 WC, 11-20 epithelial cells. MRSA screen neg. C diff neg. Flu/RSV neg. CXR with artifact vs early PNA on right. CTCAP with bl ureteral stents slightly migrated proximally, no hydronephrosis; multiple small bilateral renal calculi; moderate- sized wedge-shaped area of consolidation superior aspect of RLL, ddx including PNA and pulmonary infarction, suggest correlation with d dimer. She was started on pressors along with empiric antibiotics. Pressors stopped 01/31. She has been seen by urology with plans for stent exchange today. UCx with C tropicalis and fluconazole started on 01/31. ID consulted 02/01 for assistance. Regarding C tropicalis, given presenting symptoms and extensive urological instrumentation along with renal calculi, this could represent true infection. C tropicalis is generally susceptible to azoles and fluconazole should be adequate. Susceptibilities are in process. Would note that stone and stents would act as a nidus of infection and ideally should be removed while she is still on antifungals, the duration of which is 14 days. Regarding the PNA, she is not hypoxic and doesnt seem to have had respiratory symptoms based on chart review. Sputum cultures are ordered but not collected. Given mention of wedge-shape, would also consider emboli. Blood cultures are negative and no murmur noted in chart (ie in consideration of a septic emboli). Ill add urine legionella and continue on current antibiotics. Defer additional w/u to primary team. # Septic shock off pressors # UTI in setting of ureteral stents and renal calculi (R flank pain, dysuria) UCx C tropicalis # Wedge-shaped area of consolidation in superior aspect of RLL # MALINA on CKD III - Ami ordered urine legionella - f/u sputum cultures (if able to be obtained) - f/u UCx susceptibilities - will f/u urologic procedure today - continue fluconazole 200mg q24h (renally adjusted for CrCl 34.6) - continue CTX 2g IV daily - continue doxycycline 100mg PO bid - will see patient with telepresenter when they become available Will continue to follow. If questions or concerns, contact via [employer] or Infectious Disease Call Center . Mireille Cheng MD [facility], Division of Infectious Diseases Consultation Information This patient recommendation is based on a telemedicine consult request which was completed asynchronously through chart review and information provided by the primary physician. The patient was not seen or examined today. The evaluation is consultative in nature and all patient care and treatment decisions can either be accepted or rejected by the patient's primary hospital-based treating physician using their own independent medical judgment for their patient. [employer] contact information: Please call [facility] Call Center [phone]. (Phone Number For Physician Use Only) Time Spent Reviewing Chart: 31+ minutes History of Present Illness Reason for Consultation: anna tropicalis in urine Attending Physician: Roger Patrick DO History of Present Illness 84yo F with h/o bl obstructing renal stones with hydronephrosis s/p bl ureteral stent with left laser stone destruction 09/2024, admission 11/23-11/1124 with septic shock 2/2 recurrent UTI (cx with Klebsiella, s/p augmentin x 14d) s/p bl stent exchange 12/31/24, ongoing stone burden and underwent bl stent exchange with right lithotripsy 01/13/25, bilateral TKA in 2020, right periprosthetic fracture around knee 09/2024 s/p right femur ORIF, h/o GBS 2/ flu shot, right breast cancer s/p lumpectomy/XRT, seizure with no recurrence after benign brain tumor excision in 1998, CKD III who presented on 01/29 with R lower back and flank pain x 1-2 days. She had seen urology on 01/28 due to urinary symptoms and was sent home on cefuroxime, however symptoms persisted including back pain. She c/o dysuria and right sided flank pain. On admission, she was febrile, hypotensive to 70-80s, satting well on RA. Initial labs with WBC 13.23, Cr 1.68, AST/ALT wnl. Lactate 1.3. Troponin negative. PCT 0.28. UA > 50 WC, 11-20 epithelial cells. MRSA screen neg. C diff neg. Flu/RSV neg. CXR with artifact vs early PNA on right. CTCAP with bl ureteral stents slightly migrated proximally, no hydronephrosis; multiple small bilateral renal calculi; moderate-sized wedge- shaped area of consolidation superior aspect of RLL, ddx including PNA and pulmonary infarction, suggest correlation with d dimer. She was started on pressors along with empiric antibiotics. Pressors stopped 01/31. She has been seen by urology with plans for stent exchange. UCx with C tropicalis and fluconazole started on 01/31. ID consulted 02/01 for assistance. Unfortunately, telepresenters are not available for the remainder of the day. Allergies Allergy/AdvReac Type Severity Reaction Status Date / Time influenza virus vaccine, Allergy Severe Gillean Verified 01/29/25 12:51 specific [place] Syndrome Sulfa (Sulfonamide Allergy Unknown Unknown Verified 01/29/25 12:51 Antibiotics) cephalexin AdvReac Mild Nausea Verified 01/29/25 12:51 Home Medications Medication Instructions Recorded Confirmed Type ferrous sulfate 325 mg (65 mg 325 mg PO QDL 07/17/18 01/29/25 History iron) tablet (iron) raloxifene 60 mg tablet 60 mg PO QAM 01/20/20 01/29/25 History cyanocobalamin (vitamin B-12) 500 500 mcg PO QAM 12/20/20 01/29/25 History mcg tablet (Vitamin B-12) cranberry extract 500 mg capsule 500 mg PO QAM 05/08/21 01/29/25 History (Cranberry Concentrate) potassium chloride 10 mEq 40 meq PO BIDWMEAL 04/09/22 01/29/25 History tablet,extended release acetaminophen 500 mg tablet 1,000 mg PO Q8 PRN Pain 02/05/24 01/29/25 History loperamide 2 mg capsule 2 mg PO Q6H PRN loose stool #30 12/04/24 01/29/25 Rx caps Bifidobacterium infantis 4 mg 4 mg PO QDL 01/04/25 01/29/25 History capsule (Align (B.infantis)) cholecalciferol (vitamin D3) 25 25 mcg PO QDL 01/29/25 01/29/25 History mcg (1,000 unit) tablet (Vitamin D3) mirtazapine 7.5 mg tablet 7.5 mg PO HS 01/29/25 01/29/25 History Patient History Medical History Depression Hypotension States Metoprolol on hold Hx of sepsis Sepsis/MALINA r/t UTI, hospitalized at [facility] 10/2024 History of colitis Neuropathy involving both lower extremities Hydronephrosis concurrent with and due to calculi of kidney and ureter History of seizure Single episode s/p benign brain tumor excision (1998) No issues since History of right breast cancer (2000) s/p radiation Kidney stones Anemia 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 Osteoarthritis 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 Surgical History History of postoperative nausea and vomiting History of open reduction and internal fixation (ORIF) procedure right femur fx - [facility] - 09/2024 Hx of lithotripsy (01/18/21) S/P cystoscopy with ureteral stent placement Multiple History of tooth extraction History of colonoscopy History of appendectomy History of total knee replacement R/L (2020) History of hip surgery right and left due to falling History of brain surgery (1998) 1998; benign tumor excision Hx of hysterectomy Hx of lumpectomy Right breast- had xrt Family History Mother Macular degeneration Father Kidney stone Diabetes Social History Smoking Status: Never smoker Tobacco Type: Declines Second Hand Exposure: No; Do You Dip or Chew Tobacco: No; Hx Alcohol Use: No Hx Substance Use: No Preferred Language: Citizen Of [place] Communication Ability: Effective Visual Impairment: No Limitations Bone Grinder Required: No Beliefs That Will Affect Care: None marital status: / Current Living Situation: Alone Current Living Situation Comment: son Feels Safe at Home: Yes Assistive Devices: None Results & Data Vital Signs (Past 12 Hours) Vital Signs Temp Pulse Pulse Resp BP BP Pulse Ox 02/01/25 10:00 37.0 C 62 14 122/58 L 97 02/01/25 09:00 37.1 C 52 L 16 101/53 L 98 02/01/25 08:50 37.1 C 73 20 108/48 L 93 02/01/25 08:00 37.1 C 55 L 12 89/44 L 98 02/01/25 07:00 37.0 C 68 18 102/52 L 98 02/01/25 06:00 37.1 C 65 16 110/46 L 97 02/01/25 05:00 37.2 C 65 15 112/57 L 97 02/01/25 04:00 37.1 C 64 16 107/56 L 98 02/01/25 03:00 37 C 68 20 106/61 97 02/01/25 02:00 36.9 C 69 21 122/59 L 98 02/01/25 01:00 36.5 C 69 15 108/58 L 97 02/01/25 00:01 36.7 C 66 20 116/58 L 97 O2 Del Method 02/01/25 10:00 Room Air 02/01/25 09:00 Room Air 02/01/25 08:50 Room Air 02/01/25 08:00 02/01/25 07:00 Room Air 02/01/25 06:00 Room Air 02/01/25 05:00 Room Air 02/01/25 04:00 Room Air 02/01/25 03:00 02/01/25 02:00 Room Air 02/01/25 01:00 Room Air 02/01/25 00:01 Room Air Laboratory Results Labs reviewed. Diagnostic Findings Imaging reviewed.
--- NOTE | 2025-02-01 11:42 | Anesthesiology Consultation ---
Date of Service February 01, 2025 Assessment & Plan Chart Review Chart Review: Acceptable Risk for Surgery and Patient NOT seen in Pre Admission Testing Consults Requested none ASA ASA2 Proposed Anesthesia Anesthesia Type: MAC Risk / Benefits Reviewed With: PT / POA / Parent / Guardian, Accepts Plan and Informed Consent Obtained History Surgery Operation Date: 02/01/25 07:55 Proposed Procedures p Cystoscopy, Bilateral Ureteral Stent Exchange - Markie Mckeon MD Height/Weight Height: 5 ft 3 in Weight: 55.4 kg Allergies Allergy/AdvReac Type Severity Reaction Status Date / Time influenza virus vaccine, Allergy Severe Gillean Verified 01/29/25 12:51 specific [place] Syndrome Sulfa (Sulfonamide Allergy Unknown Unknown Verified 01/29/25 12:51 Antibiotics) cephalexin AdvReac Mild Nausea Verified 01/29/25 12:51 Medications Home Medications Medication Instructions Recorded Confirmed Last Taken ferrous sulfate 325 mg (65 mg 325 mg PO QDL 07/17/18 01/29/25 01/28/25 iron) tablet (iron) raloxifene 60 mg tablet 60 mg PO QAM 01/20/20 01/29/25 01/29/25 cyanocobalamin (vitamin B-12) 500 500 mcg PO QAM 12/20/20 01/29/25 01/29/25 mcg tablet (Vitamin B-12) cranberry extract 500 mg capsule 500 mg PO QAM 05/08/21 01/29/25 01/29/25 (Cranberry Concentrate) potassium chloride 10 mEq 40 meq PO BIDWMEAL 04/09/22 01/29/25 01/29/25 tablet,extended release acetaminophen 500 mg tablet 1,000 mg PO Q8 PRN Pain 02/05/24 01/29/25 Unknown loperamide 2 mg capsule 2 mg PO Q6H PRN loose stool #30 12/04/24 01/29/25 01/28/25 caps Bifidobacterium infantis 4 mg 4 mg PO QDL 01/04/25 01/29/25 01/28/25 capsule (Align (B.infantis)) cholecalciferol (vitamin D3) 25 25 mcg PO QDL 01/29/25 01/29/25 01/28/25 mcg (1,000 unit) tablet (Vitamin D3) mirtazapine 7.5 mg tablet 7.5 mg PO HS 01/29/25 01/29/25 01/28/25 Active Medications Generic Name Dose Route Start Last Admin Trade Name Freq PRN Reason Stop Dose Admin Acetaminophen 650 mg 01/29/25 16:16 01/30/25 14:38 Acetaminophen 325 Mg Tab PO 02/28/25 16:15 650 mg Q6H PRN Administration Pain or Fever Diclofenac Sodium 2 gm 01/30/25 14:00 01/31/25 20:04 Diclofenac Sod 1% Gel 100 Gm Tube EXT 03/01/25 13:59 2 gm TID PRN Administration Pain Protocol Doxycycline Hyclate 100 mg 01/30/25 21:00 02/01/25 08:28 Doxycycline Hyclate 100 Mg Cap PO 02/04/25 20:59 100 mg BID MEGAN Administration Norepinephrine Bitartrate 4 mg in 250 mls @ 0 mls/hr 01/29/25 13:30 01/31/25 11:33 Levophed/D5w IV 02/28/25 13:29 0 mcg/kg/min .Q0M MEGAN 0 mls/hr Titration Protocol 0 MCG/KG/MIN Hydrocortisone Sodium 1 mls @ 4 mls/min 01/29/25 15:00 02/01/25 08:29 Succinate 50 mg/ Syringe IV 02/28/25 14:59 4 mls/min Q6H MEGAN Administration Ceftriaxone Sodium 1,000 mg in 50 mls @ 100 mls/hr 01/30/25 10:00 02/01/25 10:00 Rocephin IV 02/09/25 09:59 Infused Q24H MEGAN Infusion Fluconazole 200 mg in 100 mls @ 100 mls/hr 02/01/25 09:00 02/01/25 09:28 Diflucan IV 02/13/25 09:59 Infused Q24H MEGAN Infusion Loperamide HCl 2 mg 01/30/25 00:52 01/31/25 23:54 Loperamide Hcl 2 Mg Cap PO 03/01/25 00:51 2 mg Q6H PRN Administration Diarrhea Mirtazapine 7.5 mg 01/29/25 21:00 01/31/25 20:06 Mirtazapine Tab 15 Mg Tab PO 02/28/25 20:59 7.5 mg HS MEGAN Administration Miscellaneous 1 each 01/30/25 18:00 02/01/25 05:08 Icu Electrolyte Replacement Protocol N/A 02/06/25 17:59 1 each BID@06,18 MEGAN Administration Protocol NPO Date Last Intake of Fluids: 01/31/25 Time Last Intake of Fluids: 23:00 Date Last Intake of Solids: 01/31/25 Time Last Intake of Solids: 19:00 Past Medical History Medical History Depression Hypotension States Metoprolol on hold Hx of sepsis Sepsis/MALINA r/t UTI, hospitalized at [facility] 10/2024 History of colitis Neuropathy involving both lower extremities Hydronephrosis concurrent with and due to calculi of kidney and ureter History of seizure Single episode s/p benign brain tumor excision (1998) No issues since History of right breast cancer (2000) s/p radiation Kidney stones Anemia Chronic Hx of Guillain-[place] syndrome (1998) After flu shot (1998) Mild residual LE neuropathy Osteoarthritis 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 Past Family History Family History Mother Macular degeneration Father Kidney stone Diabetes Past Surgical History Surgical History History of postoperative nausea and vomiting History of open reduction and internal fixation (ORIF) procedure right femur fx - [facility] - 09/2024 Hx of lithotripsy (01/18/21) S/P cystoscopy with ureteral stent placement Multiple History of tooth extraction History of colonoscopy History of appendectomy History of total knee replacement R/L (2020) History of hip surgery right and left due to falling History of brain surgery (1998) 1998; benign tumor excision Hx of hysterectomy Hx of lumpectomy Right breast- had xrt Social History Smoking Status: Never smoker Do You Dip or Chew Tobacco: No Hx Alcohol Use: No Hx Substance Use: No substance use type: does not use Physical Exam Vital Signs Last Vital Signs Temp 37.0 C 02/01/25 10:00 Pulse 62 02/01/25 10:00 Resp 14 02/01/25 10:00 BP 122/58 L 02/01/25 10:00 Pulse Ox 97 02/01/25 10:00 O2 Del Method Room Air 02/01/25 10:00 Testing Laboratory Results 02/01/25 04:01 02/01/25 04:01 Hemoglobin A1c 5.2 % (4.5-5.6) 01/31/25 04:20 Urine Color Sterling 01/29/25 12:38 Urine Appearance Turbid (Clear) A 01/29/25 12:38 Urine pH 5.5 (4.5-7.5) 01/29/25 12:38 Ur Specific Ramer 1.012 (1.000-1.030) 01/29/25 12:38 Urine Protein 2+ (Negative) H 01/29/25 12:38 Urine Glucose (UA) Negative (Negative) 01/29/25 12:38 Urine Ketones Negative (Negative) 01/29/25 12:38 Urine Nitrite Negative (Negative) 01/29/25 12:38 Ur Leukocyte Esterase 3+ (Negative) H 01/29/25 12:38 Urine WBC (Auto) >50 /hpf (0-5) H 01/29/25 12:38 Urine RBC (Auto) >20 /hpf (0-2) H 01/29/25 12:38 U Hyaline Cast (Auto) 11-20 /lpf (0-2) H 01/29/25 12:38 U Epithel Cells (Auto) 11-20 /hpf (0-2) H 01/29/25 12:38 Urine Bacteria (Auto) 2+ (None Seen) H 01/29/25 12:38 01/29/25 12:38 Urine Culture - Preliminary Urine,Clean Catch Tatum tropicalis 01/29/25 11:20 Aerobic Blood Culture - Preliminary Blood No growth in Aerobic bottle after 48 hours. Anaerobic Blood Culture - Preliminary No growth in Anaerobic bottle after 48 hours. 01/29/25 10:59 Aerobic Blood Culture - Preliminary Blood No growth in Aerobic bottle after 48 hours. Anaerobic Blood Culture - Preliminary No growth in Anaerobic bottle after 48 hours. Electrocardiogram Date: 01/29/25 Normal sinus rhythm Normal ECG When compared with ECG of 13-Jan-2025 10:36, No significant change was found Confirmed by Omari Matthew ([id number]) on 01/29/2025 10:49:11 PM
--- NOTE | 2025-02-01 12:03 | Nephrology Progress Note ---
Date of Service February 01, 2025 Assessment & Plan (1) MALINA (acute kidney injury): Plan: Patient with the acute kidney injury due to ischemic ATN in setting of sepsis. Admission creatinine of 1.6 but downtrending 1 today. Will continue monitor input output. Avoid nephrotoxins such as contrast. Renally dose antibiotics for current GFR. Avoid hypotension. (2) Electrolyte abnormality: Plan: sodium 134 today. Patient is NPO for stent exchange today. Calcium was 7.3. Will give 1 g of calcium gluconate. Continue to monitor and supplement as needed (3) Ureteral stent present: Plan: patient has a ureteral stent. patient most likely need stent removal due to fungal infection. Urine is growing Tatum species. Tatum is difficult to clear in the presence of a foreign body in this case stent. Urology is following and plans stent exchange today. Admission and Anticipated Discharge Date Admission Date: January 29, 2025 Subjective Seen for MALINA and electrolyte imbalance. She feels better. No flank pain. She is making urine and creatinine stable Review of Systems 2 Review of Systems: All other systems were reviewed and negative except as noted in HPI Physical Exam 2 Physical Exam: General exam: Appears comfortable, no acute distress HEENT: Pupils are equal and reactive to light Neck: No JVD, neck is supple trachea is midline Respiratory system: Clear breath sounds bilaterally. Gastrointestinal: Abdomen is soft, non distended, non tender, bowel sounds are present CVS: Regular rate and rhythm. No murmurs, rubs or gallops Musculoskeletal: No flank tenderness Extremities: Non tender, no edema, peripheral pulses are present Neuro: Oriented, no tremors, no focal neurological deficits Skin: No rashes Results & Data Vital Signs (Past 12 Hours) Vital Signs Temp Pulse Pulse Resp BP BP Pulse Ox 02/01/25 10:00 37.0 C 62 14 122/58 L 97 02/01/25 09:00 37.1 C 52 L 16 101/53 L 98 02/01/25 08:50 37.1 C 73 20 108/48 L 93 02/01/25 08:00 37.1 C 55 L 12 89/44 L 98 02/01/25 07:00 37.0 C 68 18 102/52 L 98 02/01/25 06:00 37.1 C 65 16 110/46 L 97 02/01/25 05:00 37.2 C 65 15 112/57 L 97 02/01/25 04:00 37.1 C 64 16 107/56 L 98 02/01/25 03:00 37 C 68 20 106/61 97 02/01/25 02:00 36.9 C 69 21 122/59 L 98 02/01/25 01:00 36.5 C 69 15 108/58 L 97 O2 Del Method 02/01/25 10:00 Room Air 02/01/25 09:00 Room Air 02/01/25 08:50 Room Air 02/01/25 08:00 02/01/25 07:00 Room Air 02/01/25 06:00 Room Air 02/01/25 05:00 Room Air 02/01/25 04:00 Room Air 02/01/25 03:00 02/01/25 02:00 Room Air 02/01/25 01:00 Room Air Laboratory Results 02/01/25 04:01 01/31/25 02/01/25 17:42 04:01 WBC 13.09 H D RBC 2.75 L MCV 89.5 MCH 29.5 MCHC 32.9 RDW Std Deviation 54.4 H RDW Coeff of Addie 16.5 H Plt Count 335 MPV 9.3 L Phosphorus 2.8 D 2.7
[2025-02-01] MEDS ORDERED: fentaNYL citrate PF 100 MCG/2 ML VIAL IV PRN (12:21)
[2025-02-01] MEDS ORDERED: ONDANSETRON INJ 2 MG/ML 2 ML VIAL IV PRN (12:21)
[2025-02-01] MEDS ORDERED: ePHEDrine sulfate 50 MG/ML AMP IV PRN (12:21)
[2025-02-01] MEDS ORDERED: ATROPINE SULFATE 0.1 MG/ML 10ML SYR IV PRN (12:21)
--- NOTE | 2025-02-01 13:15 | Operative Report ---
PG Post Operative Report Pre & Post Diagnosis Operation Date: 02/01/25 07:55 Pre-Op Diagnosis: Bilateral Kidney Stones Post-Op Diagnosis: Bilateral Kidney Stones I identified the patient and participated in the time-out.: Yes Procedure Operation Date: 02/01/25 07:55 Actual Procedures p Cystoscopy, Bilateral Ureteral Stent Exchange(Bilateral) - Markie Mckeon MD Surgeon Markie Mckeon MD Senior Medical Technologist none Estimated Blood Loss 0 Findings Consistent with Post-Op Diagnosis Specimens none Description of Procedure The patient was identified in the preoperative holding area, appropriate informed consents were reviewed and completed and the patient was transferred to the operative suite. Upon arrival, appropriate antibiotics and anesthesia were administered and the patient was placed in dorsal lithotomy position and prepped and draped in sterile fashion. To be in the case I passed a 21 Guinean cystoscope with 30 degree lens. Inspection revealed a relatively healthy bladder with bilateral stents in place. There was no significant debris within the bladder and the stents appear to be on encrusted. Given her recent infection we elected to exchange the stents regardless. I have grasped the distal aspect of the right stent withdrew it. I then advanced a wire through the lumen and into the kidney before placement of a new 7 Guinean by 24 cm Coloplast stent. There was good curl in the kidney as well as the bladder. I then reentered the bladder and grasped the distal aspect of the left ureteral stent. I intubated with a sensor wire and exchanged out for a new 7 Guinean by 24 cm Coloplast stent. Decompressed the bladder and I elected to leave her without a Santillan catheter. She was reversed of anesthesia and taken to the recovery room in stable condition. There were no complications. I attest to the content of the Intraoperative Record and any orders documented therein. Any exceptions are noted below.
--- NOTE | 2025-02-01 13:51 | Anesthesiology Progress Note ---
Date of Service February 01, 2025 Anesthesia Post Procedure Vital Signs Vital Signs: Temp Pulse Pulse Resp BP BP Pulse Ox 02/01/25 13:40 36.4 C L 62 20 108/58 L 99 02/01/25 13:30 70 16 104/54 L 98 02/01/25 13:20 36.2 C L 72 12 93/55 L 100 02/01/25 10:00 37.0 C 62 14 122/58 L 97 02/01/25 09:00 37.1 C 52 L 16 101/53 L 98 02/01/25 08:50 37.1 C 73 20 108/48 L 93 02/01/25 08:00 37.1 C 55 L 12 89/44 L 98 02/01/25 07:00 37.0 C 68 18 102/52 L 98 02/01/25 06:00 37.1 C 65 16 110/46 L 97 02/01/25 05:00 37.2 C 65 15 112/57 L 97 02/01/25 04:00 37.1 C 64 16 107/56 L 98 02/01/25 03:00 37 C 68 20 106/61 97 02/01/25 02:00 36.9 C 69 21 122/59 L 98 02/01/25 01:00 36.5 C 69 15 108/58 L 97 02/01/25 00:01 36.7 C 66 20 116/58 L 97 01/31/25 23:00 36.8 C 65 13 89/46 L 95 01/31/25 22:00 36.9 C 66 14 98/52 L 96 01/31/25 21:00 37.1 C 74 15 106/57 L 99 01/31/25 20:00 37.2 C 74 14 106/54 L 98 01/31/25 19:18 37.2 C 82 16 90/65 L 97 01/31/25 19:00 37.4 C 80 24 104/56 L 98 01/31/25 18:00 37.4 C 84 20 94/57 L 98 01/31/25 17:48 37.4 C 85 21 93/55 L 98 01/31/25 17:39 37.5 C 83 22 97/63 L 100 01/31/25 17:15 37.4 C 89 22 110/56 L 99 01/31/25 16:57 37.4 C 82 19 106/55 L 100 01/31/25 16:27 37.4 C 82 18 113/62 97 01/31/25 16:12 37.4 C 85 20 118/67 98 01/31/25 16:01 37.2 C 79 14 107/56 L 98 01/31/25 15:57 37.4 C 79 14 107/56 L 97 01/31/25 15:45 37.4 C 80 12 96/54 L 98 01/31/25 15:15 37.3 C 78 14 106/54 L 100 01/31/25 15:03 37.1 C 78 20 113/62 99 01/31/25 14:45 37.2 C 79 16 102/54 L 100 01/31/25 14:45 37.2 C 84 22 102/54 L 96 01/31/25 14:30 37.2 C 91 H 22 119/65 96 01/31/25 14:15 37.3 C 85 24 108/57 L 100 01/31/25 14:00 37.2 C 85 23 100 O2 Del Method O2 Flow Rate 02/01/25 13:40 Room Air 02/01/25 13:30 Room Air 02/01/25 13:20 Oxymask 6 02/01/25 10:00 Room Air 02/01/25 09:00 Room Air 02/01/25 08:50 Room Air 02/01/25 08:00 02/01/25 07:00 Room Air 02/01/25 06:00 Room Air 02/01/25 05:00 Room Air 02/01/25 04:00 Room Air 02/01/25 03:00 02/01/25 02:00 Room Air 02/01/25 01:00 Room Air 02/01/25 00:01 Room Air 01/31/25 23:00 Room Air 01/31/25 22:00 Room Air 01/31/25 21:00 Room Air 01/31/25 20:00 Room Air 01/31/25 19:18 Room Air 01/31/25 19:00 Room Air 01/31/25 18:00 Room Air 01/31/25 17:48 Room Air 01/31/25 17:39 Room Air 01/31/25 17:15 Room Air 01/31/25 16:57 Room Air 01/31/25 16:27 Room Air 01/31/25 16:12 Room Air 01/31/25 16:01 Room Air 01/31/25 15:57 Room Air 01/31/25 15:45 Room Air 01/31/25 15:15 Room Air 01/31/25 15:03 Room Air 01/31/25 14:45 Room Air 01/31/25 14:45 Room Air 01/31/25 14:30 Room Air 01/31/25 14:15 Room Air 01/31/25 14:00 Room Air Transfer of Care Handoff Completed per policy Notes Mental Status: alert / awake / arousable Patient Amnestic to Procedure: Yes Nausea / Vomiting: adequately controlled Pain: adequately controlled Airway Patency, RR, SpO2: stable & adequate BP & HR: stable & adequate Hydration State: stable & adequate Anesthetic Complications: no major complications apparent and Pt Satisfied with anesthetic care
--- NOTE | 2025-02-01 13:57 | Fluoroscopy Report ---
CADY BAUMAN CLINICAL HISTORY: BILAT STENT EXCHANGE COMPARISON STUDY: None pertinent FLUOROSCOPY TIME: 10.6 seconds FLUOROSCOPY IMAGES: 2 EXPOSURE DOSE: 1.5 for mGy FINDINGS: Fluoroscopy provided IMPRESSION: See procedural report for evaluation based upon real-time observation ACT 112: Negative or not required by law. Electronically signed by: Suzy Guevara M.D. 02/01/2025 1:56 PM
[2025-02-01] MEDS: CASPOFUNGIN 70 MG in SODIUM CHLORIDE 0.9% 250 ML IV ONE (14:05)
[2025-02-02 07:46] LABS: Hematocrit (blood only) 27.2 % (37.0-47.0); Hemoglobin 8.6 g/dl (12.0-16.0); Mean Corpuscular Hemoglobin 28.8 pg (25.0-34.0); Mean Corpuscular Hgb Conc 31.6 g/dL (32.0-36.0); Mean Platelet Volume 9.2 fL (9.4-12.4); Platelet Count 337 K/uL (130-400); RDW Coefficient of Variation 16.5 % (11.5-14.5); RDW Standard Deviation 55.1 fL (36.4-46.3); Red Blood Count 2.99 M/uL (4.20-5.40); White Blood Count 7.52 K/ul (4.8-10.8)
[2025-02-02 07:57] LABS: BUN Creatinine Ratio 19.8 (10-20); Calcium 7.3 mg/dl (8.6-10.3); Creatinine Clr Calc Pharmacy 36.7 ml/min; Phosphorus 2.6 mg/dl (2.5-4.9); Potassium 4.8 mmol/L (3.5-5.1)
--- NOTE | 2025-02-02 08:00 | Hospitalist Progress Note ---
Date of Service February 02, 2025 Assessment & Plan (1) Septic shock: (2) Complicated urinary tract infection: (3) Tatum tropicalis infection: (4) Right upper lobe pneumonia: (5) Metabolic acidosis: (6) Ureteral stent present: (7) Electrolyte abnormality: (8) Chronic renal failure (CRF), stage 3b: (9) Diarrhea due to drug: (10) Acute retention of urine: Plan 84-yo F with hx of hydronephrosis 2/2 to nephrolithiasis, ureteral stent placement last September 2024, exchanged January 13, 2025, presenting with Right lower back/flank pain. Septic shock Recurrent UTI in the setting of nephrolithiasis, ureteral stents Initially required ICU admission , and pressor support Off Levophed now S/p ureteral stent exchange by urology yesterday - 02/01/2025 Follow-up urine culture and blood cultures History of recurrent Klebsiella UTI, most recent November 2024 Similar presentation back in November 2024 Urine cultx posit. for Gram negat. bacilli and Tatum tropicalis ID consulted - pt seen 02/01/2025 Pt is on fluconazole, caspofungin In addition to ceftriaxone + doxycycline Poss. pneumonia on chest x-ray: Patient denies respiratory symptoms. BioFire - negative sputum culture ordered - but not collected nasal MRSA - negative CT chest No contrast - IMPRESSION: Moderate-sized wedge-shaped area of consolidation superior aspect right lower lobe. Differential diagnosis includes focal pneumonia and pulmonary infarction. Suggest correlation with d-dimer. Recommend follow-up chest CT in 3 months to make sure this completely resolves without underlying nodule. 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 PNA Currently sitting up in bed in [facility], reports feeling well. But has not voided since Santillan removed. No fever, chills, chest pain, shortness of breath. No abd. pain. No LE pain or edema. Family at the bedside and updated. Review of Systems Review of Systems: All systems reviewed & are unremarkable except as noted in Subjective Physical Exam Physical Exam: Constitutional: WD/WN elderly F in NAD HEENT: NC/AT. Mucous membranes moist. Lungs: CTAB CV: S1-S2, regular Abdomen: Soft, nontender, nondistended Extremities: No significant edema, no tenderness to palpation of LEs Neuro: awake, alert, speech fluent, + hard of hearing, no facial asymmetry, moves extremities Psych: Cooperative, normal mood Results & Data Results & Data Vital Signs (Past 12 Hours) Vital Signs Temp Pulse Pulse Resp BP Pulse Ox O2 Del Method 02/02/25 07:26 58 L 02/02/25 07:19 36.5 C 65 17 120/58 L 96 Room Air 02/02/25 03:50 36.7 C 61 18 107/66 98 Room Air 02/02/25 00:51 60 107/66 96 Room Air 02/01/25 22:43 36.6 C 57 L 17 83/45 L 96 Room Air 02/01/25 21:45 65 Laboratory Results 02/02/25 02/01/25 02/01/25 Range/Units 06:38 12:30 09:51 WBC 7.52 (4.8-10.8) K/ul RBC 2.99 L (4.20-5.40) M/uL Hgb 8.6 L (12.0-16.0) g/dl Hct 27.2 L (37.0-47.0) % MCV 91.0 (80.0-100.0) fL MCH 28.8 (25.0-34.0) pg MCHC 31.6 L (32.0-36.0) g/dL RDW Std Deviation 55.1 H (36.4-46.3) fL RDW Coeff of Addie 16.5 H (11.5-14.5) % Plt Count 337 (130-400) K/uL MPV 9.2 L (9.4-12.4) fL Sodium 135 L (136-145) mmol/L Potassium 4.8 D (3.5-5.1) mmol/L Chloride 108 H (98-107) mmol/L Carbon Dioxide 25 (21-32) mmol/L Anion Gap 2 L (3-11) BUN 19 (6-23) mg/dl Creatinine 0.96 (0.6-1.2) mg/dl Est Cr Clr Drug Dosing 36.7 ml/min eGFR 58.71 BUN/Creatinine Ratio 19.8 (10-20) Glucose 116 H (70-99(Fasting)) mg/dl Calcium 7.3 L (8.6-10.3) mg/dl Phosphorus 2.6 (2.5-4.9) mg/dl Magnesium 2.0 (1.7-2.4) mg/dl 25-OH Vitamin D Total 46.7 (30-100) ng/ml Urine Legionella Ag Pending Medications Administered Current Inpatient Medications Acetaminophen (Acetaminophen 325 Mg Tab) 650 mg PO Q6H PRN PRN Reason: Pain or Fever Stop: 02/28/25 16:15 Last Admin: 01/30/25 14:38 Dose: 650 mg Dextrose (Dextrose 50% 50 Ml Syringe) 25 - 50 ml IV UD PRN; Protocol PRN Reason: Hypoglycemia Protocol Stop: 02/28/25 21:02 Diclofenac Sodium (Diclofenac Sod 1% Gel 100 Gm Tube) 2 gm EXT TID PRN; Protocol PRN Reason: Pain Stop: 03/01/25 13:59 Last Admin: 01/31/25 20:04 Dose: 2 gm Doxycycline Hyclate (Doxycycline Hyclate 100 Mg Cap) 100 mg PO BID MEGAN Stop: 02/04/25 20:59 Last Admin: 02/01/25 20:08 Dose: 100 mg Glucagon (Glucagon For Inj 1 Mg Vial) 1 mg SQ UD PRN; Protocol PRN Reason: Hypoglycemia Protocol Stop: 02/28/25 21:02 Glucose (Glucose 40% Gel 15 Gm Tube) 15 - 30 gm PO UD PRN; Protocol PRN Reason: Hypoglycemia Protocol Stop: 02/28/25 21:02 Glucose (Glucose 10 Tab/Tube) 4 - 8 tab PO UD PRN; Protocol PRN Reason: Hypoglycemia Protocol Stop: 02/28/25 21:02 Hydrocortisone Sodium (Succinate 50 mg/ Syringe) 1 mls @ 4 mls/min IV Q6H MEGAN Stop: 02/28/25 14:59 Last Admin: 02/02/25 04:53 Dose: 4 mls/min Promethazine HCl (Phenergan) 6.25 mg in 50.25 mls @ 201 mls/hr IV Q6H PRN PRN Reason: Nausea And Vomiting Stop: 02/28/25 16:15 Ceftriaxone Sodium (Rocephin) 1,000 mg in 50 mls @ 100 mls/hr IV Q24H [facility] Stop: 02/09/25 09:59 Last Infusion: 02/01/25 10:00 Dose: Infused Fluconazole (Diflucan) 200 mg in 100 mls @ 100 mls/hr IV Q24H [facility] Stop: 02/13/25 09:59 Last Infusion: 02/01/25 09:28 Dose: Infused Caspofungin 50 mg/ Sodium (Chloride) 260 mls @ 250 mls/hr IV Q24H [facility]; Protocol Stop: 02/12/25 12:59 Loperamide HCl (Loperamide Hcl 2 Mg Cap) 2 mg PO Q6H PRN PRN Reason: Diarrhea Stop: 03/01/25 00:51 Last Admin: 02/01/25 14:36 Dose: 2 mg Mirtazapine (Mirtazapine Tab 15 Mg Tab) 7.5 mg PO HS [facility] Stop: 02/28/25 20:59 Last Admin: 02/01/25 20:08 Dose: 7.5 mg Miscellaneous (Carbohydrates For Hypoglycemia ) 15 - 30 gm PO UD PRN PRN Reason: Hypoglycemia Protocol Stop: 02/28/25 21:02
--- NOTE | 2025-02-02 11:16 | Urology Progress Note ---
Date of Service February 02, 2025 Assessment & Plan (1) Bilateral kidney stones: (2) Ureteral stent present: Plan: - Pt POD#1 s/p cystoscopy and bilateral ureteral stent exchange - Doing well, progressing as expected - Afebrile, vitals stable - Lab work reviewed - creatinine 0.96, WBC 7.52 - Urine culture with anna tropicalis - Blood cultures no growth - Defer to ID recommendations for antibiotic/antifungal treatment - Tolerating bilateral ureteral stent with minimal bother - Santillan out last night, monitor voiding, bladder scan prn - Expected clinical course reviewed, all questions answered - Will arrange outpatient follow-up with our service - will sign off Admission and Anticipated Discharge Date Admission Date: January 29, 2025 Subjective Patient seen and examined at bedside this morning. She reports her Santillan was removed last night, has not voided yet today. Denies pain. No fever or chills. Review of Systems Constitutional: as per Subjective / HPI Genitourinary: as per Subjective / HPI Physical Exam Constitutional: no acute distress Respiratory: normal respiratory effort; no respiratory distress and no labored breathing Gastrointestinal (Abdomen): Inspection/Auscultation: abdomen normal to inspection Musculoskeletal: Head/Neck/Chest: normocephalic Neurologic: moves all extremities and awake Psychiatric: Orientation: alert and oriented x 3 Results & Data Vital Signs (Past 12 Hours) Vital Signs Temp Pulse Pulse Resp BP Pulse Ox O2 Del Method 02/02/25 10:28 36.4 C L 62 16 112/65 97 Room Air 02/02/25 07:26 58 L 02/02/25 07:19 36.5 C 65 17 120/58 L 96 Room Air 02/02/25 03:50 36.7 C 61 18 107/66 98 Room Air 02/02/25 00:51 60 107/66 96 Room Air PG Care Time/CCT Total # of Minutes Spent Total Time Spent with Patient: Total time spent is greater than 50% in coordination of care (as documented) at patient's floor/unit and/or counseling patient: Coding Level of Care Code 46728 SUB INP/OBS CARE 12/18MIN Diagnoses Bilateral kidney stones N20.0 Ureteral stent present Z96.0
--- NOTE | 2025-02-02 11:54 | Infectious Disease Progress Nt ---
Date of Service February 02, 2025 Assessment & Plan (1) Tatum tropicalis infection: (2) Right upper lobe pneumonia: (3) Ureteral stent present: (4) Bilateral kidney stones: Plan 84yo F with h/o bl obstructing renal stones with hydronephrosis s/p bl ureteral stent with left laser stone destruction 09/2024, admission 11/23-11/1124 with septic shock 2/2 recurrent UTI (cx with Klebsiella, s/p augmentin x 14d) s/p bl stent exchange 11/23/24, ongoing stone burden and underwent bl stent exchange with right lithotripsy 01/13/25, bilateral TKA in 2020, right periprosthetic fracture around knee 09/2024 s/p right femur ORIF, 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 She had seen urology on 01/28 due to urinary symptoms and was sent home on cefuroxime, however symptoms persisted. On admission, she was febrile, hypotensive to 70-80s, satting well on RA. Initial labs with WBC 13.23, Cr 1.68, AST/ALT wnl. Lactate 1.3. Troponin negative. PCT 0.28. UA > 50 WC, 11-20 epithelial cells. MRSA screen neg. C diff neg. Flu/RSV neg. CXR with artifact vs early PNA on right. CTCAP with bl ureteral stents slightly migrated proximally, no hydronephrosis; multiple small bilateral renal calculi; moderate- sized wedge-shaped area of consolidation superior aspect of RLL, ddx including PNA and pulmonary infarction, suggest correlation with d dimer. She was started on pressors along with empiric antibiotics. Pressors stopped 01/31. She has been seen by urology with plans for stent exchange today. UCx with C tropicalis and fluconazole started on 01/31. ID consulted 02/01 for assistance. S/p OR 02/01 and underwent bilateral ureteral stent exchange. Regarding C tropicalis in urine, given presenting symptoms with extensive urological instrumentation and renal calculi, along with septic shock, will treat this as true infection. She has urine cultures at [facility] with C tropicalis that has a fluconazole ADARSH 32 (read intermediate, corrected report is resistant) and susceptible micafungin. Plan to continue dual therapy with fluconazole + caspofungin. Reason being that echinocandins (ie caspo) have poor urinary penetration, but since fluconazole is resistant, Ami added this to cover for upper tract/systemic infection (given her initial septic shock and flank pain). Ami continued fluconazole because even though it is resistant, it can still have adequate utility in a lower urinary tract infection if ADARSH < 64 (though would be inadequate for systemic infection for which caspofungin is being used). Will use the higher dose 6mg/kg for fluconazole which then gets adjusted due to her CKD. She has had stents exchanged. Note ideally should be removed if feasible while she is on antifungals as the stents (and stones) would act as a nidus of infection. Overall plan will be to treat for 2 weeks with fluconazole and longer course with caspofungin (will do 2 weeks after resolution of symptoms and after stent exchange, may need consideration for longer due to risk of persistent infection in the setting of ureteral stents/renal calculi). Regarding this question of PNA based on CT chest, she did not endorse any respiratory symptoms today and did not have any on admission. She has not been hypoxic, has a wedge-shaped consolidation on imaging and PCT 0.28. Though did have right sided pain on admission (ie her flank pain). Clinically this does not seem entirely consistent with a pneumonia. Would consider ruling out emboli. BCx are negative and no murmurs are noted (ie if considering septic emboil). If this is infectious in origin, then would not treat longer than 5 days (which will be on 02/03). Urine legionella is in process. # Septic shock off pressors # UTI in setting of ureteral stents and renal calculi (R flank pain, dysuria) UCx C tropicalis s/p bl stent exchange 02/01 # Wedge-shaped area of consolidation in superior aspect of RLL # MALINA on CKD III - f/u urine legionella - f/u sputum cultures (if able to be obtained) - f/u C tropicalis susceptibilities - continue fluconazole 200mg q24h (renally adjusted for CrCl <50) x 2 weeks (start 01/31, end 02/13) monitor weekly LFTs - continue caspofungin 50mg IV daily (plan for at least 2 weeks starting 02/01, may consider longer ~4wks given stents and stones - outpatient could use what is formulary/cost-effective ie micafungin 100mg IV daily) - ideally favor removing ureteral stents when feasible while she is on antifungals - continue CTX and doxycycline through 02/03 and then stop - can consider TTE for w/u of septic emboli given wedge-shaped consolidation (though note negative blood cultures) - defer noninfectious workup of wedge-shaped finding on CT chest to primary team - she should have follow up with local ID provider Will continue to follow. If questions or concerns, contact via [employer] or Infectious Disease Call Center . Mireille Cheng MD [facility], Division of Infectious Diseases [employer]: [phone] Admission and Anticipated Discharge Date Admission Date: January 29, 2025 Subjective Subsequent visit was provided via telemedicine using two-way real-time interactive telecommunication between the patient and the telemedicine provider. For the duration of the visit, the provider was performing the assessment from a different facility than the patient. This includesuse of bluetooth stethoscope forauscultationperformed by the telepresenter that the telemedicine provider can hear if described in the physical exam. Outpatient Coding Specialist contact information: Please call [employer] [facility] Call Center . (Phone Number For Physician Use Only) After establishing a telemedicine visit, patient was: Patient was verified with two unique identifiers, Patient/authorized rep acknowledged consent and understanding and Gave permission to continue telehealth session Time Spent with Patient: Subsequent => 55 min Patient says that on admission, she had a sharp pain on the right side and burning with urination. She also had been feeling very fatigued. She has been treated with an ointment/cream in the past for a yeast infection but does not recall taking fluconazole. She currently does not have any abdominal pain, flank pain, or dysuria. She has diarrhea and says she always gets it. No rashes or open wounds. Denies shortness of breath, cough, or chest pain. Physical Exam Physical Exam: General: Awake, alert, no acute distress HEENT: NC/AT, EOMI, mmm Neck: supple Lungs: respirations non-labored Heart: nl peripheral perfusion Abdomen: soft, NT/ND Back: no CVA tenderness Ext: trace LE edema Skin: no rash Results & Data Vital Signs (Past 12 Hours) Vital Signs Temp Pulse Pulse Resp BP Pulse Ox O2 Del Method 02/02/25 10:28 36.4 C L 62 16 112/65 97 Room Air 02/02/25 07:26 58 L 02/02/25 07:19 36.5 C 65 17 120/58 L 96 Room Air 02/02/25 03:50 36.7 C 61 18 107/66 98 Room Air 02/02/25 00:51 60 107/66 96 Room Air Laboratory Results Labs reviewed. Diagnostic Findings Imaging reviewed.
[2025-02-02] MEDS: CASPOFUNGIN 50 MG in SODIUM CHLORIDE 0.9% 250 ML IV SCH (12:13)
--- NOTE | 2025-02-02 15:38 | Nephrology Progress Note ---
Date of Service February 02, 2025 Assessment & Plan (1) MALINA (acute kidney injury): Plan: Patient with the acute kidney injury due to ischemic ATN in setting of sepsis. Admission creatinine of 1.6 but downtrending 1 today. Will continue monitor input output. Avoid nephrotoxins such as contrast. Renally dose antibiotics for current GFR. Avoid hypotension. Renal will sign off case. Please call if additional questions or concerns. Patient will need renal follow-up in 2-3 weeks after discharge for kidney stone prevention (2) Electrolyte abnormality: Plan: sodium 135 today. Calcium was 7.3. vitamin-D level was 46. Continue to monitor and supplement as needed (3) Ureteral stent present: Plan: patient is status post exchange of the ureteral stent. Admission and Anticipated Discharge Date Admission Date: January 29, 2025 Subjective Seen for acute kidney injury and electrolyte imbalance. She feels better now. Ureteral stent was exchanged yesterday. She is now on fluconazole caspofungin. CT abdomen still showed bilateral nephrolithiasis. Daughter was at the bedside. Review of Systems 2 Review of Systems: All other systems were reviewed and negative except as noted in HPI Physical Exam 2 Physical Exam: General exam: Appears comfortable, no acute distress HEENT: Pupils are equal and reactive to light Neck: No JVD, neck is supple trachea is midline Respiratory system: Clear breath sounds bilaterally. Gastrointestinal: Abdomen is soft, non distended, non tender, bowel sounds are present CVS: Regular rate and rhythm. No murmurs, rubs or gallops Musculoskeletal: No flank tenderness Extremities: Non tender, no edema, peripheral pulses are present Neuro: Oriented, no tremors, no focal neurological deficits Skin: No rashes Results & Data Vital Signs (Past 12 Hours) Vital Signs Temp Pulse Pulse Resp BP Pulse Ox O2 Del Method 02/02/25 15:22 71 02/02/25 10:28 36.4 C L 62 16 112/65 97 Room Air 02/02/25 07:26 58 L 02/02/25 07:19 36.5 C 65 17 120/58 L 96 Room Air 02/02/25 03:50 36.7 C 61 18 107/66 98 Room Air Laboratory Results 02/02/25 06:38 02/02/25 06:38 WBC 7.52 RBC 2.99 L MCV 91.0 MCH 28.8 MCHC 31.6 L RDW Std Deviation 55.1 H RDW Coeff of Addie 16.5 H Plt Count 337 MPV 9.2 L Phosphorus 2.6
--- NOTE | 2025-02-03 06:40 | Electrocardiogram Report ---
Test Reason : Blood Pressure : */* mmHG Vent. Rate : 58 BPM Atrial Rate : 58 BPM P-R Int : 138 ms QRS Dur : 76 ms QT Int : 456 ms P-R-T Axes : 257 10 51 degrees QTcB Int : 447 ms Unusual P axis, possible ectopic atrial bradycardia Low voltage QRS Abnormal ECG When compared with ECG of 29-Jan-2025 10:51, Ectopic atrial rhythm has replaced Sinus rhythm Vent. rate has decreased by 33 bpm Confirmed by Omari Matthew ([id number]) on 02/03/2025 6:40:08 AM Referred By: REFERRED SELF Confirmed By: Omari Matthew
[2025-02-03 07:33] LABS: Hematocrit (blood only) 26.7 % (37.0-47.0); Hemoglobin 8.5 g/dl (12.0-16.0); Mean Corpuscular Hgb Conc 31.8 g/dL (32.0-36.0); Mean Corpuscular Volume 91.1 fL (80.0-100.0); Mean Platelet Volume 9.1 fL (9.4-12.4); Platelet Count 311 K/uL (130-400); RDW Coefficient of Variation 16.2 % (11.5-14.5); RDW Standard Deviation 53.8 fL (36.4-46.3); Red Blood Count 2.93 M/uL (4.20-5.40); White Blood Count 7.89 K/ul (4.8-10.8)
--- NOTE | 2025-02-03 07:45 | Hospitalist Progress Note ---
Date of Service February 03, 2025 Assessment & Plan (1) Septic shock: (2) Complicated urinary tract infection: (3) Tatum tropicalis infection: (4) Right upper lobe pneumonia: (5) Metabolic acidosis: (6) Ureteral stent present: (7) Electrolyte abnormality: (8) Chronic renal failure (CRF), stage 3b: (9) Diarrhea due to drug: (10) Acute retention of urine: Plan 84-yo F with hx of hydronephrosis 2/2 to nephrolithiasis, ureteral stent placement last September 2024, exchanged January 13, 2025, presenting with Right lower back/flank pain. Septic shock Recurrent UTI in the setting of nephrolithiasis, ureteral stents Initially required ICU admission , and pressor support Off Levophed now S/p ureteral stent exchange by urology yesterday - 02/01/2025 Follow-up urine culture and blood cultures History of recurrent Klebsiella UTI, most recent November 2024 Similar presentation back in November 2024 Urine cultx posit. for Gram negat. bacilli and Tatum tropicalis ID consulted - pt seen 02/01/2025 Pt is on fluconazole, caspofungin In addition to ceftriaxone + doxycycline Poss. pneumonia on chest x-ray: Patient denies respiratory symptoms. BioFire - negative sputum culture ordered - but not collected nasal MRSA - negative CT chest No contrast - IMPRESSION: Moderate-sized wedge-shaped area of consolidation superior aspect right lower lobe. Differential diagnosis includes focal pneumonia and pulmonary infarction. Suggest correlation with d-dimer. Recommend follow-up chest CT in 3 months to make sure this completely resolves without underlying nodule. Echo obtained - No vegetation or mass. EF 55-60% DVT LE Doppler - IMPRESSION: Deep venous thrombus within the bilateral popliteal, posterior tibial and peroneal veins. 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 PNA Currently sitting up in bed in NAD, reports feeling well. No fever, chills, chest pain, shortness of breath. No abd. pain. No LE pain or edema. Discussed w/ ID on the phone - Echo obtained, LE doppler obtained - posit. DVT Daughter on the phone updated Review of Systems Review of Systems: All systems reviewed & are unremarkable except as noted in Subjective Physical Exam Physical Exam: Constitutional: WD/WN elderly F in NAD HEENT: NC/AT. Mucous membranes moist. Lungs: CTAB CV: S1-S2, regular Abdomen: Soft, nontender, nondistended Extremities: No significant edema, no tenderness to palpation of LEs Neuro: awake, alert, speech fluent, + hard of hearing, no facial asymmetry, moves extremities Psych: Cooperative, normal mood Results & Data Results & Data Vital Signs (Past 12 Hours) Vital Signs Temp Pulse Pulse Resp BP Pulse Ox O2 Del Method 02/03/25 03:52 36.7 C 61 18 124/51 L 98 Room Air 02/02/25 23:32 36.4 C 60 18 101/47 L 96 Room Air 02/02/25 21:45 62 Laboratory Results 02/03/25 Range/Units 06:46 WBC 7.89 (4.8-10.8) K/ul RBC 2.93 L (4.20-5.40) M/uL Hgb 8.5 L (12.0-16.0) g/dl Hct 26.7 L (37.0-47.0) % MCV 91.1 (80.0-100.0) fL MCH 29.0 (25.0-34.0) pg MCHC 31.8 L (32.0-36.0) g/dL RDW Std Deviation 53.8 H (36.4-46.3) fL RDW Coeff of Addie 16.2 H (11.5-14.5) % Plt Count 311 (130-400) K/uL MPV 9.1 L (9.4-12.4) fL Sodium 137 (136-145) mmol/L Potassium 3.9 (3.5-5.1) mmol/L Chloride 108 H (98-107) mmol/L Carbon Dioxide 26 (21-32) mmol/L Anion Gap 3 (3-11) BUN 20 (6-23) mg/dl Creatinine 0.99 (0.6-1.2) mg/dl Est Cr Clr Drug Dosing 38.6 ml/min eGFR 56.58 BUN/Creatinine Ratio 20.2 H (10-20) Glucose 108 H (70-99(Fasting)) mg/dl Calcium 7.1 L (8.6-10.3) mg/dl Phosphorus 2.2 L (2.5-4.9) mg/dl Magnesium 1.7 (1.7-2.4) mg/dl Medications Administered Current Inpatient Medications Acetaminophen (Acetaminophen 325 Mg Tab) 650 mg PO Q6H PRN PRN Reason: Pain or Fever Stop: 02/28/25 16:15 Last Admin: 01/30/25 14:38 Dose: 650 mg Dextrose (Dextrose 50% 50 Ml Syringe) 25 - 50 ml IV UD PRN; Protocol PRN Reason: Hypoglycemia Protocol Stop: 02/28/25 21:02 Diclofenac Sodium (Diclofenac Sod 1% Gel 100 Gm Tube) 2 gm EXT TID PRN; Protocol PRN Reason: Pain Stop: 03/01/25 13:59 Last Admin: 01/31/25 20:04 Dose: 2 gm Doxycycline Hyclate (Doxycycline Hyclate 100 Mg Cap) 100 mg PO BID MEGAN Stop: 02/04/25 20:59 Last Admin: 02/02/25 21:07 Dose: 100 mg Glucagon (Glucagon For Inj 1 Mg Vial) 1 mg SQ UD PRN; Protocol PRN Reason: Hypoglycemia Protocol Stop: 02/28/25 21:02 Glucose (Glucose 40% Gel 15 Gm Tube) 15 - 30 gm PO UD PRN; Protocol PRN Reason: Hypoglycemia Protocol Stop: 02/28/25 21:02 Glucose (Glucose 10 Tab/Tube) 4 - 8 tab PO UD PRN; Protocol PRN Reason: Hypoglycemia Protocol Stop: 02/28/25 21:02 Hydrocortisone Sodium (Succinate 50 mg/ Syringe) 1 mls @ 4 mls/min IV Q6H MEGAN Stop: 02/28/25 14:59 Last Admin: 02/03/25 03:21 Dose: 4 mls/min Promethazine HCl (Phenergan) 6.25 mg in 50.25 mls @ 201 mls/hr IV Q6H PRN PRN Reason: Nausea And Vomiting Stop: 02/28/25 16:15 Ceftriaxone Sodium (Rocephin) 1,000 mg in 50 mls @ 100 mls/hr IV Q24H MEGAN Stop: 02/09/25 09:59 Last Infusion: 02/02/25 10:24 Dose: Infused Fluconazole (Diflucan) 200 mg in 100 mls @ 100 mls/hr IV Q24H MEGAN Stop: 02/13/25 09:59 Last Infusion: 02/02/25 09:03 Dose: Infused Caspofungin 50 mg/ Sodium (Chloride) 260 mls @ 250 mls/hr IV Q24H [facility]; Protocol Stop: 02/12/25 12:59 Last Infusion: 02/02/25 13:33 Dose: Infused Loperamide HCl (Loperamide Hcl 2 Mg Cap) 2 mg PO Q6H PRN PRN Reason: Diarrhea Stop: 03/01/25 00:51 Last Admin: 02/02/25 21:07 Dose: 2 mg Mirtazapine (Mirtazapine Tab 15 Mg Tab) 7.5 mg PO HS MEGAN Stop: 02/28/25 20:59 Last Admin: 02/02/25 21:08 Dose: 7.5 mg Miscellaneous (Carbohydrates For Hypoglycemia ) 15 - 30 gm PO UD PRN PRN Reason: Hypoglycemia Protocol Stop: 02/28/25 21:02
[2025-02-03 07:50] LABS: BUN Creatinine Ratio 20.2 (10-20); Calcium 7.1 mg/dl (8.6-10.3); Creatinine Clr Calc Pharmacy 38.6 ml/min; Magnesium 1.7 mg/dl (1.7-2.4); Phosphorus 2.2 mg/dl (2.5-4.9); Potassium 3.9 mmol/L (3.5-5.1)
--- NOTE | 2025-02-03 09:54 | Ultrasound Report ---
BILATERAL LOWER EXTREMITY VENOUS DOPPLER CLINICAL HISTORY: r/o dvt COMPARISON STUDY: No previous studies for comparison. TECHNIQUE: Sonography of the deep venous system of the bilateral lower extremities was performed. Co mpression and augmentation were evaluated. FINDINGS: The right common femoral and superficial femoral veins are patent. There is nonocclusive d eep venous thrombus within the right popliteal, posterior tibial and peroneal veins. The left common femoral and superficial femoral veins are patent. There is nonocclusive thrombus within the left popl iteal, posterior tibial and peroneal veins. IMPRESSION: Deep venous thrombus within the bilateral popliteal, posterior tibial and peroneal veins. ACT 112: Negative or not required by law. Electronically signed by: Redd Salcido M.D. 02/03/2025 9:52 AM
[2025-02-03] MEDS: Heparin IV Adult Wt-Based Standard w/ INITIAL Bolus Protocol IV STA (11:01)
--- NOTE | 2025-02-03 11:01 | Infectious Disease Progress Nt ---
Date of Service February 03, 2025 Assessment & Plan (1) Tatum tropicalis infection: (2) Right upper lobe pneumonia: (3) Ureteral stent present: (4) Bilateral kidney stones: Plan 84yo F with h/o bl obstructing renal stones with hydronephrosis s/p bl ureteral stent with left laser stone destruction 09/2024, admission 11/23-11/1124 with septic shock 2/2 recurrent UTI (cx with Klebsiella, s/p augmentin x 14d) s/p bl stent exchange 11/23/24, ongoing stone burden and underwent bl stent exchange with right lithotripsy 01/13/25, bilateral TKA in 2020, right periprosthetic fracture around knee 09/2024 s/p right femur ORIF, 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 She had seen urology on 01/28 due to urinary symptoms and was sent home on cefuroxime, however symptoms persisted. On admission, she was febrile, hypotensive to 70-80s, satting well on RA. Initial labs with WBC 13.23, Cr 1.68, AST/ALT wnl. Lactate 1.3. Troponin negative. PCT 0.28. UA > 50 WC, 11-20 epithelial cells. MRSA screen neg. C diff neg. Flu/RSV neg. CXR with artifact vs early PNA on right. CTCAP with bl ureteral stents slightly migrated proximally, no hydronephrosis; multiple small bilateral renal calculi; moderate- sized wedge-shaped area of consolidation superior aspect of RLL, ddx including PNA and pulmonary infarction, suggest correlation with d dimer. She was started on pressors along with empiric antibiotics. Pressors stopped 01/31. She has been seen by urology with plans for stent exchange today. UCx with C tropicalis and fluconazole started on 01/31. ID consulted 02/01 for assistance. S/p OR 02/01 and underwent bilateral ureteral stent exchange. Caspofungin started 02/01 due to prior h/o C tropicalis I to fluconazole, S to micafungin. Workup of wedge-shaped consolidation: TTE with normal LV, diastolic dysfunction, mild aortic root dilatation, mild AR, trace MR, no vegetations, interatrial shunt noted. Bilateral LE doppler with DVT in bl popliteal, posterior tibial, and peroneal veins. Regarding C tropicalis in urine, given presenting symptoms with extensive urological instrumentation and renal calculi, along with shock, treating this as true infection. Since culture susceptibilities will take time to result, current regimen is based on prior culture results from [facility] where C tropicalis had fluconazole ADARSH 32 (read intermediate, corrected report is resistant) and susceptible micafungin. Plan to continue dual therapy with fluconazole (since ADARSH was < 64 and should still be adequate in lower urinary tract) + caspofungin (though poor urinary penetration, using for upper tract/systemic infection). She has had stents exchanged. Note ideally should be removed if feasible while she is on antifungals as the stents (and stones) would act as a nidus of infection. Overall plan will be to treat for 2 weeks with fluconazole and longer course with caspofungin (will do 2 weeks after resolution of symptoms and after stent exchange, may need consideration for longer due to risk of persistent infection in the setting of ureteral stents/renal calculi). Regarding CT chest findings, she did not endorse any respiratory symptoms. Unclear if there is an infectious component there. She does seem to have bilateral DVT, awaiting CTA. If this is infectious in origin, then would not treat longer than 5 days (which will be today 02/03). Urine legionella is in process. # Shock off pressors # UTI in setting of ureteral stents and renal calculi (R flank pain, dysuria) UCx C tropicalis s/p bl stent exchange 02/01 # Wedge-shaped area of consolidation in superior aspect of RLL treating for PNA, ?PE # Bilateral DVT # MALINA on CKD III - f/u urine legionella - f/u C tropicalis susceptibilities (may take time to result) - continue fluconazole 200mg q24h (renally adjusted for CrCl <50) - continue caspofungin 50mg IV daily - complete CTX and doxycycline today and then stop - ideally favor removing ureteral stents when feasible while she is on antifungals Discharge plan: - if C tropicalis susceptibilities are not available prior to discharge, would send patient on the following plan (plan may change if susceptibilities are back before discharge) - fluconazole 200mg PO q24h x 2 weeks (start 01/31, end 02/13) - caspofungin 50mg IV daily (OR can use micafungin 100mg IV daily if more cost- effective and on formulary) x at least 2 weeks starting 02/01 (2 weeks is 02/14), may consider longer ~4wks (until 02/28) given stents and stones - monitor weekly CBC w diff, BMP, and LFTs while on fluconazole and IV antifungal - she should have follow up with local ID provider Will continue to follow. If questions or concerns, contact via [employer] or Infectious Disease Call Center . Mireille Cheng MD [facility], Division of Infectious Diseases Admission and Anticipated Discharge Date Admission Date: January 29, 2025 Subjective This patient recommendation is based on a telemedicine consult request which was completed asynchronously through chart review and information provided by the primary physician. The patient was not seen or examined today. The evaluation is consultative in nature and all patient care and treatment decisions can either be accepted or rejected by the patient's primary hospital-based treating physician using their own independent medical judgment for their patient. Time Spent Reviewing Chart: 31+ minutes Chart reviewed, patient not seen. Results & Data Vital Signs (Past 12 Hours) Vital Signs Temp Pulse Pulse Resp BP Pulse Ox O2 Del Method 02/03/25 07:51 36.5 C 71 18 122/57 L 98 Room Air 02/03/25 07:16 57 L 02/03/25 03:52 36.7 C 61 18 124/51 L 98 Room Air 02/02/25 23:32 36.4 C 60 18 101/47 L 96 Room Air Laboratory Results Labs reviewed. Diagnostic Findings Imaging reviewed.
[2025-02-03] MEDS: OPTIRAY 320 125ml IV ONE (12:08)
[2025-02-03] MEDS: HEPARIN 25000 UNIT/500 ML D5W 25,000 UNITS/500 ML BAG IV SCH (12:30)
[2025-02-03] MEDS: HEPARIN SOD (PORCINE) 1000 UNIT/ML IV ONE (12:30)
--- NOTE | 2025-02-03 13:07 | CT Scan Report ---
CT ANGIOGRAPHY OF THE CHEST, PULMONARY EMBOLUS PROTOCOL CLINICAL HISTORY: Shortness of breath. Evaluate for pulmonary embolus. COMPARISON STUDY: Chest CT January 30, 2025. TECHNIQUE: Following IV administration of 122 mL of Optiray, helical axial images of the chest were o btained utilizing the pulmonary embolus protocol. Maximal intensity projections and sagittal and cor onal reformats were viewed on an independent 3D workstation. IV contrast was administered without co mplication. Automated exposure control was utilized for the study. A dose lowering technique was ut ilized adhering to the principles of ALARA. CT DOSE: 318.65 mGy.cm FINDINGS: There are numerous bilateral pulmonary emboli, including emboli within the distal right pu lmonary artery. Note is made of additional lobar, segmental and subsegmental pulmonary emboli within the lungs. There is no evidence for right heart strain. A 5.8 x 3.4 cm subpleural wedge-shaped opacit y within the superior segment of the right lower lobe is again noted. This represents a pulmonary inf arct. A small to moderate loculated right pleural effusion has developed since prior CT. There is a t race pericardial effusion. Trace left pleural effusion is present. There is no pneumothorax. There is no thoracic lymphadenopathy. Trace perihepatic ascites is noted. Right hydronephrosis is partially i kelly. Visualized portions of the colon are fluid-filled. IMPRESSION: 1. Numerous bilateral pulmonary emboli, as described above. No CT evidence for right heart strain. Fi ndings will be called/faxed to the ordering provider at time of dictation. 2. Redemonstration of a 5.8 x 3.4 cm infarct within the superior segment the right lower lobe. 3. Interval a small to moderate-sized loculated right pleural effusion. 4. Trace pericardial effusion. ACT 112: Negative or not required by law. Electronically signed by: Redd Salcido M.D. 02/03/2025 1:06 PM
[2025-02-03 13:18] LABS: Partial Thromboplastin Ratio > 4.9; Prothrombin Time 11.3 Seconds (9.0-12.0)
[2025-02-03 13:28] LABS: Partial Thromboplastin Time > 139 Seconds (21-31)
[2025-02-03 20:11] LABS: ANTI-Xa, UFH(UnfractionatedHep 0.81 IU/ml (0.3-0.7)
[2025-02-04 04:37] LABS: ANTI-Xa, UFH(UnfractionatedHep 0.68 IU/ml (0.3-0.7)
[2025-02-04 04:40] LABS: BUN Creatinine Ratio 17.2 (10-20); Calcium 6.9 mg/dl (8.6-10.3); Creatinine Clr Calc Pharmacy 43.9 ml/min; Magnesium 1.4 mg/dl (1.7-2.4); Phosphorus 2.7 mg/dl (2.5-4.9); Potassium 2.8 mmol/L (3.5-5.1)
[2025-02-04] MEDS: CALCIUM GLUCONATE 1,000 MG/60 ML BAG IV SCH (05:38)
[2025-02-04] MEDS: MAGNESIUM SULFATE / D5W 1 GM/100 ML BAG IV SCH (05:55)
[2025-02-04] MEDS: POTASSIUM CHLORIDE CRTAB 20 MEQ TABCR PO STA (06:55)
[2025-02-04 07:02] LABS: Hematocrit (blood only) 26.5 % (37.0-47.0); Hemoglobin 8.4 g/dl (12.0-16.0); Mean Corpuscular Hemoglobin 28.6 pg (25.0-34.0); Mean Corpuscular Hgb Conc 31.7 g/dL (32.0-36.0); Mean Corpuscular Volume 90.1 fL (80.0-100.0); Mean Platelet Volume 9.1 fL (9.4-12.4); Platelet Count 278 K/uL (130-400); RDW Coefficient of Variation 16.3 % (11.5-14.5); RDW Standard Deviation 53.7 fL (36.4-46.3); Red Blood Count 2.94 M/uL (4.20-5.40); White Blood Count 7.42 K/ul (4.8-10.8)
--- NOTE | 2025-02-04 07:48 | Hospitalist Progress Note ---
Date of Service February 04, 2025 Assessment & Plan (1) Septic shock: (2) Complicated urinary tract infection: (3) Tatum tropicalis infection: (4) Right upper lobe pneumonia: (5) Metabolic acidosis: (6) Ureteral stent present: (7) Electrolyte abnormality: (8) Chronic renal failure (CRF), stage 3b: (9) Diarrhea due to drug: (10) Acute retention of urine: Plan 84-yo F with hx of hydronephrosis 2/2 to nephrolithiasis, ureteral stent placement last September 2024, exchanged January 13, 2025, presenting with Right lower back/flank pain. Septic shock Recurrent UTI in the setting of nephrolithiasis, ureteral stents Initially required ICU admission , and pressor support Off Levophed now S/p ureteral stent exchange by urology yesterday - 02/01/2025 Follow-up urine culture and blood cultures History of recurrent Klebsiella UTI, most recent November 2024 Similar presentation back in November 2024 Urine cultx posit. for Gram negat. bacilli and Tatum tropicalis ID consulted - pt seen 02/01/2025 Pt is on fluconazole, caspofungin In addition to ceftriaxone + doxycycline Poss. pneumonia on chest x-ray: Patient denies respiratory symptoms. BioFire - negative sputum culture ordered - but not collected nasal MRSA - negative CT chest No contrast - IMPRESSION: Moderate-sized wedge-shaped area of consolidation superior aspect right lower lobe. Differential diagnosis includes focal pneumonia and pulmonary infarction. Suggest correlation with d-dimer. Recommend follow-up chest CT in 3 months to make sure this completely resolves without underlying nodule. Echo obtained - No vegetation or mass. EF 55-60% DVT/PE LE Doppler - IMPRESSION: Deep venous thrombus within the bilateral popliteal, posterior tibial and peroneal veins. obtained CT PE- 1. Numerous bilateral pulmonary emboli, as described above. No CT evidence for right heart strain. 2. Re-demonstration of a 5.8 x 3.4 cm infarct within the superior segment the right lower lobe. 3. Interval a small to moderate-sized loculated right pleural effusion. 4. Trace pericardial effusion. - cont. 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 PNA Currently sitting up in bed in NAD, reports feeling well. No fever, chills, chest pain, shortness of breath. No abd. pain. No LE pain or edema. Discussed w/ ID on the phone - Echo obtained, LE doppler obtained - posit. DVT, obtained CT PE - positive for PE. Pt on IV heparin, doing well Daughter updated at the bedside - says urology called her about procedure coming up - she is concerned about pt being on AC. Updated urology Annika Strong about pt being on IV heparin and considering procedure while inpt. Will keep NPO on Friday MN and will discuss further on Friday. Review of Systems Review of Systems: All systems reviewed & are unremarkable except as noted in Subjective Physical Exam Physical Exam: Constitutional: WD/WN elderly F in NAD HEENT: NC/AT. Mucous membranes moist. Lungs: CTAB CV: S1-S2, regular Abdomen: Soft, nontender, nondistended Extremities: No significant edema, no tenderness to palpation of LEs Neuro: awake, alert, speech fluent, + hard of hearing, no facial asymmetry, moves extremities Psych: Cooperative, normal mood Results & Data Results & Data Vital Signs (Past 12 Hours) Vital Signs Temp Pulse Pulse Resp BP Pulse Ox O2 Del Method 02/04/25 07:20 56 L 02/04/25 02:00 36.4 C L 56 L 16 121/61 97 Room Air 02/03/25 23:12 36.6 C 53 L 14 120/60 96 Room Air 02/03/25 21:46 51 L Laboratory Results 02/04/25 02/04/25 02/03/25 Range/Units 06:27 03:25 19:20 WBC 7.42 (4.8-10.8) K/ul RBC 2.94 L (4.20-5.40) M/uL Hgb 8.4 L (12.0-16.0) g/dl Hct 26.5 L (37.0-47.0) % MCV 90.1 (80.0-100.0) fL MCH 28.6 (25.0-34.0) pg MCHC 31.7 L (32.0-36.0) g/dL RDW Std Deviation 53.7 H (36.4-46.3) fL RDW Coeff of Addie 16.3 H (11.5-14.5) % Plt Count 278 (130-400) K/uL MPV 9.1 L (9.4-12.4) fL PT (9.0-12.0) Seconds INR (0.9-1.1) APTT (21-31) Seconds PTT Ratio Heparin Anti-Xa, Unfract 0.68 0.81 H* (0.3-0.7) IU/ml Sodium 138 (136-145) mmol/L Potassium 2.8 L D (3.5-5.1) mmol/L Chloride 109 H (98-107) mmol/L Carbon Dioxide 22 (21-32) mmol/L Anion Gap 7 (3-11) BUN 15 (6-23) mg/dl Creatinine 0.87 (0.6-1.2) mg/dl Est Cr Clr Drug Dosing 43.9 ml/min eGFR 66.07 BUN/Creatinine Ratio 17.2 (10-20) Glucose 103 H (70-99(Fasting)) mg/dl Calcium 6.9 L (8.6-10.3) mg/dl Phosphorus 2.7 (2.5-4.9) mg/dl Magnesium 1.4 L (1.7-2.4) mg/dl Urine Legionella Ag 02/03/25 02/03/25 02/01/25 Range/Units 12:41 06:46 12:30 WBC (4.8-10.8) K/ul RBC (4.20-5.40) M/uL Hgb (12.0-16.0) g/dl Hct (37.0-47.0) % MCV (80.0-100.0) fL MCH (25.0-34.0) pg MCHC (32.0-36.0) g/dL RDW Std Deviation (36.4-46.3) fL RDW Coeff of Addie (11.5-14.5) % Plt Count (130-400) K/uL MPV (9.4-12.4) fL PT 11.3 (9.0-12.0) Seconds INR 1.0 (0.9-1.1) APTT > 139 H* (21-31) Seconds PTT Ratio > 4.9 Heparin Anti-Xa, Unfract (0.3-0.7) IU/ml Sodium 137 (136-145) mmol/L Potassium 3.9 (3.5-5.1) mmol/L Chloride 108 H (98-107) mmol/L Carbon Dioxide 26 (21-32) mmol/L Anion Gap 3 (3-11) BUN 20 (6-23) mg/dl Creatinine 0.99 (0.6-1.2) mg/dl Est Cr Clr Drug Dosing 38.6 ml/min eGFR 56.58 BUN/Creatinine Ratio 20.2 H (10-20) Glucose 108 H (70-99(Fasting)) mg/dl Calcium 7.1 L (8.6-10.3) mg/dl Phosphorus 2.2 L (2.5-4.9) mg/dl Magnesium 1.7 (1.7-2.4) mg/dl Urine Legionella Ag SEE NOTE Medications Administered Current Inpatient Medications Acetaminophen (Acetaminophen 325 Mg Tab) 650 mg PO Q6H PRN PRN Reason: Pain or Fever Stop: 02/28/25 16:15 Last Admin: 01/30/25 14:38 Dose: 650 mg Dextrose (Dextrose 50% 50 Ml Syringe) 25 - 50 ml IV UD PRN; Protocol PRN Reason: Hypoglycemia Protocol Stop: 02/28/25 21:02 Diclofenac Sodium (Diclofenac Sod 1% Gel 100 Gm Tube) 2 gm EXT TID PRN; Protocol PRN Reason: Pain Stop: 03/01/25 13:59 Last Admin: 01/31/25 20:04 Dose: 2 gm Doxycycline Hyclate (Doxycycline Hyclate 100 Mg Cap) 100 mg PO BID MEGAN Stop: 02/04/25 20:59 Last Admin: 02/03/25 21:27 Dose: 100 mg Glucagon (Glucagon For Inj 1 Mg Vial) 1 mg SQ UD PRN; Protocol PRN Reason: Hypoglycemia Protocol Stop: 02/28/25 21:02 Glucose (Glucose 40% Gel 15 Gm Tube) 15 - 30 gm PO UD PRN; Protocol PRN Reason: Hypoglycemia Protocol Stop: 02/28/25 21:02 Glucose (Glucose 10 Tab/Tube) 4 - 8 tab PO UD PRN; Protocol PRN Reason: Hypoglycemia Protocol Stop: 02/28/25 21:02 Hydrocortisone Sodium (Succinate 50 mg/ Syringe) 1 mls @ 4 mls/min IV Q6H MEGAN Stop: 02/28/25 14:59 Last Admin: 02/04/25 03:40 Dose: 4 mls/min Promethazine HCl (Phenergan) 6.25 mg in 50.25 mls @ 201 mls/hr IV Q6H PRN PRN Reason: Nausea And Vomiting Stop: 02/28/25 16:15 Ceftriaxone Sodium (Rocephin) 1,000 mg in 50 mls @ 100 mls/hr IV Q24H [facility] Stop: 02/09/25 09:59 Last Infusion: 02/03/25 11:25 Dose: Infused Fluconazole (Diflucan) 200 mg in 100 mls @ 100 mls/hr IV Q24H [facility] Stop: 02/13/25 09:59 Last Infusion: 02/03/25 10:47 Dose: Infused Caspofungin 50 mg/ Sodium (Chloride) 260 mls @ 250 mls/hr IV Q24H [facility]; Protocol Stop: 02/12/25 12:59 Last Infusion: 02/03/25 15:10 Dose: Infused Heparin Sodium/Dextrose (Heparin 98894 Unit/500 Ml D5w) 25,000 units in 500 mls @ 18 mls/hr IV .Q24H [facility]; Protocol Stop: 03/05/25 10:14 Last Titration: 02/04/25 07:07 Dose: 900 units/hr, 18 mls/hr Magnesium Sulfate/Dextrose (Magnesium Sulfate / D5w) 1 gm in 100 mls @ 50 mls/hr IV Q2H [facility] Stop: 02/04/25 08:59 Last Admin: 02/04/25 05:55 Dose: 50 mls/hr Potassium Chloride (K Arnie / Wtr) 10 meq in 100 mls @ 100 mls/hr IV Q1H [facility] Stop: 02/04/25 08:59 Loperamide HCl (Loperamide Hcl 2 Mg Cap) 2 mg PO Q6H PRN PRN Reason: Diarrhea Stop: 03/01/25 00:51 Last Admin: 02/02/25 21:07 Dose: 2 mg Mirtazapine (Mirtazapine Tab 15 Mg Tab) 7.5 mg PO HS MEGAN Stop: 02/28/25 20:59 Last Admin: 02/03/25 21:27 Dose: 7.5 mg Miscellaneous (Carbohydrates For Hypoglycemia ) 15 - 30 gm PO UD PRN PRN Reason: Hypoglycemia Protocol Stop: 02/28/25 21:02
[2025-02-04] MEDS: POTASSIUM CHLORIDE / WTR 10 MEQ/100 ML PLCT IV SCH (08:29)
--- NOTE | 2025-02-04 09:47 | Infectious Disease Progress Nt ---
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 She had seen urology on 01/28 due to urinary symptoms and was sent home on cefuroxime, however symptoms persisted. On admission, she was febrile, hypotensive to 70-80s, satting well on RA. Initial labs with WBC 13.23, Cr 1.68, AST/ALT wnl. Lactate 1.3. Troponin negative. PCT 0.28. UA > 50 WC, 11-20 epithelial cells. MRSA screen neg. C diff neg. Flu/RSV neg. CXR with artifact vs early PNA on right. CTCAP with bl ureteral stents slightly migrated proximally, no hydronephrosis; multiple small bilateral renal calculi; moderate- sized wedge-shaped area of consolidation superior aspect of RLL, ddx including PNA and pulmonary infarction, suggest correlation with d dimer. She was started on pressors along with empiric antibiotics. Pressors stopped 01/31. She has been seen by urology with plans for stent exchange today. UCx with C tropicalis and fluconazole started on 01/31. ID consulted 02/01 for assistance. S/p OR 02/01 and underwent bilateral ureteral stent exchange. Caspofungin started 02/01 due to prior h/o C tropicalis I to fluconazole, S to micafungin. Workup of wedge-shaped consolidation: TTE with normal LV, diastolic dysfunction, mild aortic root dilatation, mild AR, trace MR, no vegetations, interatrial shunt noted. Bilateral LE doppler with DVT in bl popliteal, posterior tibial, and peroneal veins. Regarding C tropicalis in urine, given presenting symptoms with extensive urological instrumentation and renal calculi, along with shock, treating this as true infection. Since culture susceptibilities will take time to result, current regimen is based on prior culture results from [facility] where C tropicalis had fluconazole ADARSH 32 (read intermediate, corrected report is resistant) and susceptible micafungin. Plan to continue dual therapy with fluconazole (since ADARSH was < 64, should still be adequate in lower urinary tract) + caspofungin (though poor urinary penetration, using for upper tract/systemic infection). Note ureteral stents ideally should be removed if feasible while she is on antifungals as the stents (and stones) would act as a nidus of infection. Overall plan will be to treat for 2 weeks with fluconazole and longer course with caspofungin (will do at least 2 weeks after resolution of symptoms and after stent exchange, may need consideration for longer due to risk of persistent infection in the setting of ureteral stents/renal calculi). Regarding CT chest findings, she did not endorse any respiratory symptoms. CTA has bilateral PE and notes infarct on right. Ami stopped antibiotics as this was more likely 2/2 PE rather than PNA. She did get 5 days of abx. # Shock off pressors # UTI in setting of ureteral stents and renal calculi (R flank pain, dysuria) UCx C tropicalis s/p bl stent exchange 02/01 # Wedge-shaped area of consolidation in superior aspect of RLL f/w PE on CTA # Bilateral DVT # MALINA on CKD III - f/u C tropicalis susceptibilities (may take time to result) - continue fluconazole 200mg q24h (renally adjusted for CrCl <50, if CrCl > 50 increase to 400mg q24h) - continue caspofungin 50mg IV daily - Ami stopped CTX and doxycycline - ideally favor removing ureteral stents when feasible while she is on antifungals Discharge plan: - if C tropicalis susceptibilities are not available prior to discharge, would send patient on the following plan (plan may change if susceptibilities are back before discharge) - fluconazole 200mg PO q24h (if CrCl< 50) x 2 weeks (start 01/31, end 02/13) - caspofungin 50mg IV daily (or can use micafungin 100mg IV daily if more cost- effective and covered by insurance) x at least 2 weeks starting 02/01, may consider longer ~4wks given stents and stones - monitor weekly CBC w diff, BMP, and LFTs while on fluconazole and IV antifungal - she should have follow up with local ID provider ID service will follow peripherally. If questions or concerns, contact via Infectious Disease Call Center . Mireille Cheng MD [facility], Division of Infectious Diseases Admission and Anticipated Discharge Date Admission Date: January 29, 2025 Subjective This patient recommendation is based on a telemedicine consult request which was completed asynchronously through chart review and information provided by the primary physician. The patient was not seen or examined today. The evaluation is consultative in nature and all patient care and treatment decisions can either be accepted or rejected by the patient's primary hospital-based treating physician using their own independent medical judgment for their patient. Time Spent Reviewing Chart: 31+ minutes Chart reviewed, patient not seen. Results & Data Vital Signs (Past 12 Hours) Vital Signs Temp Pulse Pulse Resp BP Pulse Ox O2 Del Method 02/04/25 07:20 56 L 02/04/25 02:00 36.4 C L 56 L 16 121/61 97 Room Air 02/03/25 23:12 36.6 C 53 L 14 120/60 96 Room Air Laboratory Results Labs reviewed.
--- NOTE | 2025-02-04 10:59 | Nephrology Progress Note ---
Date of Service February 04, 2025 Assessment & Plan (1) MALINA (acute kidney injury): Plan: Patient had acute kidney injury due to ischemic ATN in setting of sepsis. Admission creatinine of 1.6 but back to normal. She got CTA and at risk for MALINA again. Will monitor closely. Patient will need renal follow-up in 2-3 weeks after discharge for kidney stone prevention (2) Electrolyte abnormality: Plan: sodium 138 but k 2.8 today. Calcium was 6.9. vitamin-D level was 46. Will check PTH. She is planned for meq of kcl. Will start kcl 20meq bid which is her home regimen. Mag was 1.4 also due to diarrhoea. agree with 1g of mag iv. Continue to monitor and supplement as needed (3) Ureteral stent present: Plan: patient is status post exchange of the ureteral stent. (4) Bilateral pulmonary embolism: Plan: She is on heparin drip and will transitioned to elquis. Admission and Anticipated Discharge Date Admission Date: January 29, 2025 Subjective Seen for electrolyte imbalance. She is frustrated about not going home. She is on heparin drip for PE and DVT. K is 2.8. She has chronic diarrhoea since GBS and on chronic kcl at home. No SOB or leg swelling. Review of Systems 2 Review of Systems: All other systems were reviewed and negative except as noted in HPI Physical Exam 2 Physical Exam: General exam: Appears comfortable, no acute distress HEENT: Pupils are equal and reactive to light Neck: No JVD, neck is supple trachea is midline Respiratory system: Clear breath sounds bilaterally. Gastrointestinal: Abdomen is soft, non distended, non tender, bowel sounds are present CVS: Regular rate and rhythm. No murmurs, rubs or gallops Musculoskeletal: No flank tenderness Extremities: Non tender, no edema, peripheral pulses are present Neuro: Oriented, no tremors, no focal neurological deficits Skin: No rashes Results & Data Vital Signs (Past 12 Hours) Vital Signs Temp Pulse Pulse Resp BP Pulse Ox O2 Del Method 02/04/25 07:20 56 L 02/04/25 02:00 36.4 C L 56 L 16 121/61 97 Room Air 02/03/25 23:12 36.6 C 53 L 14 120/60 96 Room Air Laboratory Results 02/04/25 03:25 02/04/25 02/04/25 03:25 06:27 WBC 7.42 RBC 2.94 L MCV 90.1 MCH 28.6 MCHC 31.7 L RDW Std Deviation 53.7 H RDW Coeff of Addie 16.3 H Plt Count 278 MPV 9.1 L Phosphorus 2.7
[2025-02-04] MEDS: HYDROCORTISONE SOD 50 MG in SYRINGE 0 ML IV SCH (18:02)
[2025-02-04] MEDS: POTASSIUM CHLORIDE CRTAB 20 MEQ TABCR PO SCH (20:47)
[2025-02-05 06:30] LABS: Hematocrit (blood only) 24.9 % (37.0-47.0); Mean Corpuscular Hemoglobin 28.8 pg (25.0-34.0); Mean Corpuscular Hgb Conc 32.1 g/dL (32.0-36.0); Mean Corpuscular Volume 89.6 fL (80.0-100.0); Mean Platelet Volume 9.3 fL (9.4-12.4); Platelet Count 289 K/uL (130-400); RDW Coefficient of Variation 16.3 % (11.5-14.5); RDW Standard Deviation 53.6 fL (36.4-46.3); Red Blood Count 2.78 M/uL (4.20-5.40)
[2025-02-05 06:55] LABS: Albumin Level 2.2 gm/dl (3.4-5.0); BUN Creatinine Ratio 13.6 (10-20); Bilirubin,Total 0.2 mg/dl (0.2-1.0); Calcium 6.8 mg/dl (8.6-10.3); Creatinine Clr Calc Pharmacy 43.5 ml/min; Magnesium 1.7 mg/dl (1.7-2.4); Phosphorus 2.2 mg/dl (2.5-4.9); Potassium 2.9 mmol/L (3.5-5.1); Total Protein 4.4 gm/dl (6.0-8.3)
[2025-02-05 07:14] LABS: ANTI-Xa, UFH(UnfractionatedHep 0.68 IU/ml (0.3-0.7)
--- NOTE | 2025-02-05 08:13 | Hospitalist Progress Note ---
Date of Service February 05, 2025 Assessment & Plan (1) Septic shock: (2) Complicated urinary tract infection: (3) Tatum tropicalis infection: (4) Right upper lobe pneumonia: (5) Metabolic acidosis: (6) Ureteral stent present: (7) Electrolyte abnormality: (8) Chronic renal failure (CRF), stage 3b: (9) Diarrhea due to drug: (10) Acute retention of urine: Plan 84-yo F with hx of hydronephrosis 2/2 to nephrolithiasis, ureteral stent placement last September 2024, exchanged January 13, 2025, presenting with Right lower back/flank pain. Septic shock Recurrent UTI in the setting of nephrolithiasis, ureteral stents Initially required ICU admission , and pressor support Off Levophed now S/p ureteral stent exchange by urology yesterday - 02/01/2025 Follow-up urine culture and blood cultures History of recurrent Klebsiella UTI, most recent November 2024 Similar presentation back in November 2024 Urine cultx posit. for Gram negat. bacilli and Tatum tropicalis ID consulted - pt seen 02/01/2025 Pt is on fluconazole, caspofungin In addition to ceftriaxone + doxycycline Poss. pneumonia on chest x-ray: Patient denies respiratory symptoms. BioFire - negative sputum culture ordered - but not collected nasal MRSA - negative CT chest No contrast - IMPRESSION: Moderate-sized wedge-shaped area of consolidation superior aspect right lower lobe. Differential diagnosis includes focal pneumonia and pulmonary infarction. Suggest correlation with d-dimer. Recommend follow-up chest CT in 3 months to make sure this completely resolves without underlying nodule. Echo obtained - No vegetation or mass. EF 55-60% DVT/PE LE Doppler - IMPRESSION: Deep venous thrombus within the bilateral popliteal, posterior tibial and peroneal veins. obtained CT PE- 1. Numerous bilateral pulmonary emboli, as described above. No CT evidence for right heart strain. 2. Re-demonstration of a 5.8 x 3.4 cm infarct within the superior segment the right lower lobe. 3. Interval a small to moderate-sized loculated right pleural effusion. 4. Trace pericardial effusion. - cont. IV heparin Acute kidney injury Secondary to above received IVF, required pressors Monitor renal function daily Nephrology consulted and following closely Cr now improved to 1 Other chronic medical problems Paroxysmal atrial tachycardia- hold metoprolol for now in light of hypotension Prostatic right knee joint periprosthetic fracture Status post ORIF at 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 PNA Obtained CT PE, dopplers - confirmed DVT/SC- on IV heparin Daughter updated at the bedside - says urology called her about procedure coming up - she is concerned about pt being on AC. Updated urology Annika Strong about pt being on IV heparin and considering procedure while inpt. Will keep NPO on Friday MN and will discuss further on Friday. Currently sitting up in bed in NAD, reports feeling well. No fever, chills, chest pain, shortness of breath. No abd. pain. No LE pain or edema. Review of Systems Review of Systems: All systems reviewed & are unremarkable except as noted in Subjective Physical Exam Physical Exam: Constitutional: WD/WN elderly F in NAD HEENT: NC/AT. Mucous membranes moist. Lungs: CTAB CV: S1-S2, regular Abdomen: Soft, nontender, nondistended Extremities: No significant edema, no tenderness to palpation of LEs Neuro: awake, alert, speech fluent, + hard of hearing, no facial asymmetry, moves extremities Psych: Cooperative, normal mood Results & Data Results & Data Vital Signs (Past 12 Hours) Vital Signs Temp Pulse Pulse Resp BP Pulse Ox O2 Del Method 02/05/25 07:45 36.7 C 72 18 128/73 99 Room Air 02/05/25 07:24 51 L 02/05/25 03:34 36.6 C 57 L 16 131/80 98 Room Air 02/04/25 23:28 36.6 C 54 L 18 116/68 97 Room Air 02/04/25 23:25 51 L Laboratory Results 02/05/25 02/04/25 Range/Units 05:47 10:12 WBC 7.60 (4.8-10.8) K/ul RBC 2.78 L (4.20-5.40) M/uL Hgb 8.0 L (12.0-16.0) g/dl Hct 24.9 L (37.0-47.0) % MCV 89.6 (80.0-100.0) fL MCH 28.8 (25.0-34.0) pg MCHC 32.1 (32.0-36.0) g/dL RDW Std Deviation 53.6 H (36.4-46.3) fL RDW Coeff of Addie 16.3 H (11.5-14.5) % Plt Count 289 (130-400) K/uL MPV 9.3 L (9.4-12.4) fL Heparin Anti-Xa, Unfract 0.68 (0.3-0.7) IU/ml Sodium 140 (136-145) mmol/L Potassium 2.9 L (3.5-5.1) mmol/L Chloride 112 H (98-107) mmol/L Carbon Dioxide 22 (21-32) mmol/L Anion Gap 6 (3-11) BUN 12 (6-23) mg/dl Creatinine 0.88 (0.6-1.2) mg/dl Est Cr Clr Drug Dosing 43.5 ml/min eGFR 65.17 BUN/Creatinine Ratio 13.6 (10-20) Glucose 96 (70-99(Fasting)) mg/dl Calcium 6.8 L (8.6-10.3) mg/dl Phosphorus 2.2 L (2.5-4.9) mg/dl Magnesium 1.7 (1.7-2.4) mg/dl Total Bilirubin 0.2 (0.2-1.0) mg/dl Direct Bilirubin 0.0 (0-0.2) mg/dl AST 8 L (13-39) U/L ALT 5 L (7-52) U/L Alkaline Phosphatase 62 (34-104) U/L Total Protein 4.4 L (6.0-8.3) gm/dl Albumin 2.2 L (3.4-5.0) gm/dl PTH Intact 139.2 H (12.0-88.0) pg/ml Medications Administered Current Inpatient Medications Acetaminophen (Acetaminophen 325 Mg Tab) 650 mg PO Q6H PRN PRN Reason: Pain or Fever Stop: 02/28/25 16:15 Last Admin: 01/30/25 14:38 Dose: 650 mg Dextrose (Dextrose 50% 50 Ml Syringe) 25 - 50 ml IV UD PRN; Protocol PRN Reason: Hypoglycemia Protocol Stop: 02/28/25 21:02 Diclofenac Sodium (Diclofenac Sod 1% Gel 100 Gm Tube) 2 gm EXT TID PRN; Protocol PRN Reason: Pain Stop: 03/01/25 13:59 Last Admin: 01/31/25 20:04 Dose: 2 gm Fluconazole (Fluconazole 100 Mg Tab) 200 mg PO DAILY MEGAN Stop: 02/15/25 08:59 Glucagon (Glucagon For Inj 1 Mg Vial) 1 mg SQ UD PRN; Protocol PRN Reason: Hypoglycemia Protocol Stop: 02/28/25 21:02 Glucose (Glucose 40% Gel 15 Gm Tube) 15 - 30 gm PO UD PRN; Protocol PRN Reason: Hypoglycemia Protocol Stop: 02/28/25 21:02 Glucose (Glucose 10 Tab/Tube) 4 - 8 tab PO UD PRN; Protocol PRN Reason: Hypoglycemia Protocol Stop: 02/28/25 21:02 Promethazine HCl (Phenergan) 6.25 mg in 50.25 mls @ 201 mls/hr IV Q6H PRN PRN Reason: Nausea And Vomiting Stop: 02/28/25 16:15 Caspofungin 50 mg/ Sodium (Chloride) 260 mls @ 250 mls/hr IV Q24H MEGAN; Protocol Stop: 02/12/25 12:59 Last Infusion: 02/04/25 16:05 Dose: Infused Heparin Sodium/Dextrose (Heparin 45478 Unit/500 Ml D5w) 25,000 units in 500 mls @ 18 mls/hr IV .Q24H MEGAN; Protocol Stop: 03/05/25 10:14 Last Admin: 02/04/25 14:44 Dose: 900 units/hr, 18 mls/hr Hydrocortisone Sodium (Succinate 50 mg/ Syringe) 1 mls @ 4 mls/min IV Q8H MEGAN Stop: 03/06/25 17:59 Last Admin: 02/05/25 02:21 Dose: 4 mls/min Loperamide HCl (Loperamide Hcl 2 Mg Cap) 2 mg PO Q6H PRN PRN Reason: Diarrhea Stop: 03/01/25 00:51 Last Admin: 02/02/25 21:07 Dose: 2 mg Mirtazapine (Mirtazapine Tab 15 Mg Tab) 7.5 mg PO HS MEGAN Stop: 02/28/25 20:59 Last Admin: 02/04/25 20:46 Dose: 7.5 mg Miscellaneous (Carbohydrates For Hypoglycemia ) 15 - 30 gm PO UD PRN PRN Reason: Hypoglycemia Protocol Stop: 02/28/25 21:02 Potassium Chloride (Potassium Chloride Crtab 20 Meq Tabcr) 20 meq PO BID MEGAN Stop: 03/06/25 20:59 Last Admin: 02/04/25 20:47 Dose: 20 meq
[2025-02-05] MEDS: FLUCONAZOLE 100 MG TAB PO SCH (09:07)
[2025-02-05] MEDS: POTASSIUM CHLORIDE CRTAB 20 MEQ TABCR PO STA (15:20)
[2025-02-06 07:36] LABS: Hematocrit (blood only) 26.5 % (37.0-47.0); Hemoglobin 8.2 g/dl (12.0-16.0); Mean Corpuscular Hemoglobin 28.2 pg (25.0-34.0); Mean Corpuscular Hgb Conc 30.9 g/dL (32.0-36.0); Mean Corpuscular Volume 91.1 fL (80.0-100.0); Mean Platelet Volume 9.5 fL (9.4-12.4); Platelet Count 301 K/uL (130-400); RDW Coefficient of Variation 16.3 % (11.5-14.5); RDW Standard Deviation 53.7 fL (36.4-46.3); Red Blood Count 2.91 M/uL (4.20-5.40); White Blood Count 8.09 K/ul (4.8-10.8)
[2025-02-06 07:45] LABS: BUN Creatinine Ratio 10.6 (10-20); Creatinine Clr Calc Pharmacy 40.7 ml/min; Magnesium 1.5 mg/dl (1.7-2.4); Phosphorus 2.1 mg/dl (2.5-4.9); Potassium 3.1 mmol/L (3.5-5.1)
[2025-02-06] MEDS ORDERED: POTASSIUM PHOS 3 MMOL/1 ML INFUSION IV STA (07:56)
--- NOTE | 2025-02-06 07:58 | Hospitalist Progress Note ---
Date of Service February 06, 2025 Assessment & Plan (1) Septic shock: (2) Complicated urinary tract infection: (3) Tatum tropicalis infection: (4) Right upper lobe pneumonia: (5) Metabolic acidosis: (6) Ureteral stent present: (7) Electrolyte abnormality: (8) Chronic renal failure (CRF), stage 3b: (9) Diarrhea due to drug: (10) Acute retention of urine: Plan 84-yo F with hx of hydronephrosis 2/2 to nephrolithiasis, ureteral stent placement last September 2024, exchanged January 13, 2025, presenting with Right lower back/flank pain. Septic shock Recurrent UTI in the setting of nephrolithiasis, ureteral stents Initially required ICU admission , and pressor support Off Levophed now S/p ureteral stent exchange by urology - 02/01/2025 Follow-up urine culture and blood cultures History of recurrent Klebsiella UTI, most recent November 2024 Similar presentation back in November 2024 Urine cultx posit. for Gram negat. bacilli and Tatum tropicalis ID consulted Pt is on fluconazole, caspofungin In addition to ceftriaxone + doxycycline - these finished Poss. pneumonia on chest x-ray: Patient denies respiratory symptoms. BioFire - negative nasal MRSA - negative CT chest No contrast - IMPRESSION: Moderate-sized wedge-shaped area of consolidation superior aspect right lower lobe. Differential diagnosis includes focal pneumonia and pulmonary infarction. Suggest correlation with d-dimer. Recommend follow-up chest CT in 3 months to make sure this completely resolves without underlying nodule. Echo obtained - No vegetation or mass. EF 55-60% DVT/PE LE Doppler - IMPRESSION: Deep venous thrombus within the bilateral popliteal, posterior tibial and peroneal veins. obtained CT PE- 1. Numerous bilateral pulmonary emboli, as described above. No CT evidence for right heart strain. 2. Re-demonstration of a 5.8 x 3.4 cm infarct within the superior segment the right lower lobe. 3. Interval a small to moderate-sized loculated right pleural effusion. 4. Trace pericardial effusion. - cont. 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 PNA Obtained CT PE, dopplers - confirmed DVT/PE- on IV heparin Per daughter - urology called her about procedure coming up - she is concerned about pt being on AC. Updated urology Annika Tae about pt being on IV heparin and considering procedure while inpt. Will keep NPO on Friday MN and will discuss further on Friday. Currently sitting up in bed in NAD, reports feeling well. No fever, chills, chest pain, shortness of breath. No abd. pain. No LE pain or edema. Review of Systems Review of Systems: All systems reviewed & are unremarkable except as noted in Subjective Physical Exam Physical Exam: Constitutional: WD/WN elderly F in NAD HEENT: NC/AT. Mucous membranes moist. Lungs: CTAB CV: S1-S2, regular Abdomen: Soft, nontender, nondistended Extremities: No significant edema, no tenderness to palpation of LEs Neuro: awake, alert, speech fluent, + hard of hearing, no facial asymmetry, moves extremities Psych: Cooperative, normal mood Results & Data Results & Data Vital Signs (Past 12 Hours) Vital Signs Temp Pulse Pulse Resp BP Pulse Ox O2 Del Method 02/06/25 07:12 36.8 C 59 L 17 128/70 98 Room Air 02/06/25 07:10 62 02/06/25 03:16 36.7 C 56 L 16 123/67 97 Room Air 02/06/25 00:22 55 L 02/05/25 23:26 36.7 C 55 L 16 108/61 97 Room Air 02/05/25 21:43 Room Air Laboratory Results 02/06/25 Range/Units 07:01 WBC 8.09 (4.8-10.8) K/ul RBC 2.91 L (4.20-5.40) M/uL Hgb 8.2 L (12.0-16.0) g/dl Hct 26.5 L (37.0-47.0) % MCV 91.1 (80.0-100.0) fL MCH 28.2 (25.0-34.0) pg MCHC 30.9 L (32.0-36.0) g/dL RDW Std Deviation 53.7 H (36.4-46.3) fL RDW Coeff of Addie 16.3 H (11.5-14.5) % Plt Count 301 (130-400) K/uL MPV 9.5 (9.4-12.4) fL Heparin Anti-Xa, Unfract Pending Sodium 139 (136-145) mmol/L Potassium 3.1 L (3.5-5.1) mmol/L Chloride 109 H (98-107) mmol/L Carbon Dioxide 23 (21-32) mmol/L Anion Gap 7 (3-11) BUN 10 (6-23) mg/dl Creatinine 0.94 (0.6-1.2) mg/dl Est Cr Clr Drug Dosing 40.7 ml/min eGFR 60.21 BUN/Creatinine Ratio 10.6 (10-20) Glucose 101 H (70-99(Fasting)) mg/dl Calcium 7.0 L (8.6-10.3) mg/dl Phosphorus 2.1 L (2.5-4.9) mg/dl Magnesium 1.5 L (1.7-2.4) mg/dl Medications Administered Current Inpatient Medications Acetaminophen (Acetaminophen 325 Mg Tab) 650 mg PO Q6H PRN PRN Reason: Pain or Fever Stop: 02/28/25 16:15 Last Admin: 01/30/25 14:38 Dose: 650 mg Dextrose (Dextrose 50% 50 Ml Syringe) 25 - 50 ml IV UD PRN; Protocol PRN Reason: Hypoglycemia Protocol Stop: 02/28/25 21:02 Diclofenac Sodium (Diclofenac Sod 1% Gel 100 Gm Tube) 2 gm EXT TID PRN; Protocol PRN Reason: Pain Stop: 03/01/25 13:59 Last Admin: 01/31/25 20:04 Dose: 2 gm Fluconazole (Fluconazole 100 Mg Tab) 200 mg PO DAILY MEGAN Stop: 02/15/25 08:59 Last Admin: 02/06/25 08:57 Dose: 200 mg Glucagon (Glucagon For Inj 1 Mg Vial) 1 mg SQ UD PRN; Protocol PRN Reason: Hypoglycemia Protocol Stop: 02/28/25 21:02 Glucose (Glucose 40% Gel 15 Gm Tube) 15 - 30 gm PO UD PRN; Protocol PRN Reason: Hypoglycemia Protocol Stop: 02/28/25 21:02 Glucose (Glucose 10 Tab/Tube) 4 - 8 tab PO UD PRN; Protocol PRN Reason: Hypoglycemia Protocol Stop: 02/28/25 21:02 Promethazine HCl (Phenergan) 6.25 mg in 50.25 mls @ 201 mls/hr IV Q6H PRN PRN Reason: Nausea And Vomiting Stop: 02/28/25 16:15 Caspofungin 50 mg/ Sodium (Chloride) 260 mls @ 250 mls/hr IV Q24H MEGAN; Protocol Stop: 02/12/25 12:59 Last Admin: 02/06/25 13:06 Dose: 250 mls/hr Heparin Sodium/Dextrose (Heparin 98782 Unit/500 Ml D5w) 25,000 units in 500 mls @ 15 mls/hr IV .Q24H MEGAN; Protocol Stop: 03/05/25 10:14 Last Titration: 02/06/25 09:29 Dose: 750 units/hr, 15 mls/hr Hydrocortisone Sodium (Succinate 50 mg/ Syringe) 1 mls @ 4 mls/min IV Q12H MEGAN Stop: 03/08/25 08:59 Last Admin: 02/06/25 08:46 Dose: 4 mls/min Loperamide HCl (Loperamide Hcl 2 Mg Cap) 2 mg PO Q6H PRN PRN Reason: Diarrhea Stop: 03/01/25 00:51 Last Admin: 02/02/25 21:07 Dose: 2 mg Mirtazapine (Mirtazapine Tab 15 Mg Tab) 7.5 mg PO HS MEGAN Stop: 02/28/25 20:59 Last Admin: 02/05/25 20:33 Dose: 7.5 mg Miscellaneous (Carbohydrates For Hypoglycemia ) 15 - 30 gm PO UD PRN PRN Reason: Hypoglycemia Protocol Stop: 02/28/25 21:02 Potassium Chloride (Potassium Chloride Crtab 20 Meq Tabcr) 20 meq PO BID MEGAN Stop: 03/06/25 20:59 Last Admin: 02/06/25 08:57 Dose: 20 meq
[2025-02-06 08:24] LABS: ANTI-Xa, UFH(UnfractionatedHep 0.95 IU/ml (0.3-0.7)
[2025-02-06] MEDS: HYDROCORTISONE SOD 50 MG in SYRINGE 0 ML IV SCH (08:46)
[2025-02-06] MEDS: POTASSIUM PHOSPHATE 6 MMOL in SODIUM CHLORIDE 0.9% 100 ML IV ONE (08:47)
[2025-02-06] MEDS: MAGNESIUM SULFATE / D5W 1 GM/100 ML BAG IV ONE (08:49)
[2025-02-06] MEDS: POTASSIUM CHLORIDE CRTAB 20 MEQ TABCR PO STA (08:56)
[2025-02-06 16:14] LABS: ANTI-Xa, UFH(UnfractionatedHep 0.53 IU/ml (0.3-0.7)
[2025-02-07 07:31] LABS: Hematocrit (blood only) 26.9 % (37.0-47.0); Hemoglobin 8.5 g/dl (12.0-16.0); Mean Corpuscular Hgb Conc 31.6 g/dL (32.0-36.0); Mean Corpuscular Volume 91.8 fL (80.0-100.0); Mean Platelet Volume 9.4 fL (9.4-12.4); Platelet Count 305 K/uL (130-400); RDW Coefficient of Variation 16.5 % (11.5-14.5); RDW Standard Deviation 54.8 fL (36.4-46.3); Red Blood Count 2.93 M/uL (4.20-5.40); White Blood Count 9.19 K/ul (4.8-10.8)
[2025-02-07 07:44] LABS: ANTI-Xa, UFH(UnfractionatedHep 0.73 IU/ml (0.3-0.7)
[2025-02-07 08:14] LABS: BUN Creatinine Ratio 8.5 (10-20); Calcium 7.2 mg/dl (8.6-10.3); Creatinine Clr Calc Pharmacy 33.3 ml/min; Magnesium 1.7 mg/dl (1.7-2.4); Phosphorus 2.9 mg/dl (2.5-4.9); Potassium 3.1 mmol/L (3.5-5.1)
--- NOTE | 2025-02-07 08:28 | Hospitalist Progress Note ---
Date of Service February 07, 2025 Assessment & Plan (1) Septic shock: (2) Complicated urinary tract infection: (3) Tatum tropicalis infection: (4) Right upper lobe pneumonia: (5) Metabolic acidosis: (6) Ureteral stent present: (7) Electrolyte abnormality: (8) Chronic renal failure (CRF), stage 3b: (9) Diarrhea due to drug: (10) Acute retention of urine: Plan 84-yo F with hx of hydronephrosis 2/2 to nephrolithiasis, ureteral stent placement last September 2024, exchanged January 13, 2025, presenting with Right lower back/flank pain. Septic shock Recurrent UTI in the setting of nephrolithiasis, ureteral stents Initially required ICU admission , and pressor support Off Levophed now S/p ureteral stent exchange by urology - 02/01/2025 Follow-up urine culture and blood cultures History of recurrent Klebsiella UTI, most recent November 2024 Similar presentation back in November 2024 Urine cultx posit. for Gram negat. bacilli and Tatum tropicalis ID consulted Pt is on fluconazole, caspofungin In addition to ceftriaxone + doxycycline - these finished Poss. pneumonia on chest x-ray: Patient denies respiratory symptoms. BioFire - negative nasal MRSA - negative 02/07 Discussed in detail w/ daughter and urology - procedure now planned for 02/10, and will be on IV heparin CT chest No contrast - IMPRESSION: Moderate-sized wedge-shaped area of consolidation superior aspect right lower lobe. Differential diagnosis includes focal pneumonia and pulmonary infarction. Suggest correlation with d-dimer. Recommend follow-up chest CT in 3 months to make sure this completely resolves without underlying nodule. Echo obtained - No vegetation or mass. EF 55-60% DVT/PE LE Doppler - IMPRESSION: Deep venous thrombus within the bilateral popliteal, posterior tibial and peroneal veins. obtained CT PE- 1. Numerous bilateral pulmonary emboli, as described above. No CT evidence for right heart strain. 2. Re-demonstration of a 5.8 x 3.4 cm infarct within the superior segment the right lower lobe. 3. Interval a small to moderate-sized loculated right pleural effusion. 4. Trace pericardial effusion. - cont. 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 PNA Obtained CT PE, dopplers - confirmed DVT/PE - on IV heparin Discussed in detail w/ daughter and urology - procedure now planned for 02/10, and will be on IV heparin Currently sitting up in bed in NAD, reports feeling well. No fever, chills, chest pain, shortness of breath. No abd. pain. No LE pain or edema. Review of Systems Review of Systems: All systems reviewed & are unremarkable except as noted in Subjective Physical Exam Physical Exam: Constitutional: WD/WN elderly F in NAD HEENT: NC/AT. Mucous membranes moist. Lungs: CTAB CV: S1-S2, regular Abdomen: Soft, nontender, nondistended Extremities: No significant edema, no tenderness to palpation of LEs Neuro: awake, alert, speech fluent, + hard of hearing, no facial asymmetry, move s extremities Psych: Cooperative, normal mood Results & Data Results & Data Vital Signs (Past 12 Hours) Vital Signs Temp Pulse Pulse Resp BP Pulse Ox O2 Del Method 02/07/25 08:02 36.3 C L 58 L 19 127/69 96 Room Air 02/07/25 04:18 36.4 C L 60 16 122/70 97 Room Air 02/07/25 01:56 51 L 02/06/25 23:19 36.5 C 54 L 16 108/70 98 Room Air 02/06/25 20:41 Room Air Laboratory Results 02/07/25 02/06/25 Range/Units 06:58 15:21 WBC 9.19 (4.8-10.8) K/ul RBC 2.93 L (4.20-5.40) M/uL Hgb 8.5 L (12.0-16.0) g/dl Hct 26.9 L (37.0-47.0) % MCV 91.8 (80.0-100.0) fL MCH 29.0 (25.0-34.0) pg MCHC 31.6 L (32.0-36.0) g/dL RDW Std Deviation 54.8 H (36.4-46.3) fL RDW Coeff of Addie 16.5 H (11.5-14.5) % Plt Count 305 (130-400) K/uL MPV 9.4 (9.4-12.4) fL Heparin Anti-Xa, Unfract 0.73 H* 0.53 (0.3-0.7) IU/ml Sodium 142 (136-145) mmol/L Potassium 3.1 L (3.5-5.1) mmol/L Chloride 114 H (98-107) mmol/L Carbon Dioxide 24 (21-32) mmol/L Anion Gap 4 (3-11) BUN 9 (6-23) mg/dl Creatinine 1.06 (0.6-1.2) mg/dl Est Cr Clr Drug Dosing 33.3 ml/min eGFR 52.12 BUN/Creatinine Ratio 8.5 L (10-20) Glucose 81 (70-99(Fasting)) mg/dl Calcium 7.2 L (8.6-10.3) mg/dl Phosphorus 2.9 (2.5-4.9) mg/dl Magnesium 1.7 (1.7-2.4) mg/dl Medications Administered Current Inpatient Medications Acetaminophen (Acetaminophen 325 Mg Tab) 650 mg PO Q6H PRN PRN Reason: Pain or Fever Stop: 02/28/25 16:15 Last Admin: 01/30/25 14:38 Dose: 650 mg Apixaban (Apixaban 5 Mg Tablet) 10 mg PO BID [facility] Stop: 02/13/25 21:01 Dextrose (Dextrose 50% 50 Ml Syringe) 25 - 50 ml IV UD PRN; Protocol PRN Reason: Hypoglycemia Protocol Stop: 02/28/25 21:02 Diclofenac Sodium (Diclofenac Sod 1% Gel 100 Gm Tube) 2 gm EXT TID PRN; Protocol PRN Reason: Pain Stop: 03/01/25 13:59 Last Admin: 01/31/25 20:04 Dose: 2 gm Fluconazole (Fluconazole 100 Mg Tab) 200 mg PO DAILY MEGAN Stop: 02/15/25 08:59 Last Admin: 02/06/25 08:57 Dose: 200 mg Glucagon (Glucagon For Inj 1 Mg Vial) 1 mg SQ UD PRN; Protocol PRN Reason: Hypoglycemia Protocol Stop: 02/28/25 21:02 Glucose (Glucose 40% Gel 15 Gm Tube) 15 - 30 gm PO UD PRN; Protocol PRN Reason: Hypoglycemia Protocol Stop: 02/28/25 21:02 Glucose (Glucose 10 Tab/Tube) 4 - 8 tab PO UD PRN; Protocol PRN Reason: Hypoglycemia Protocol Stop: 02/28/25 21:02 Promethazine HCl (Phenergan) 6.25 mg in 50.25 mls @ 201 mls/hr IV Q6H PRN PRN Reason: Nausea And Vomiting Stop: 02/28/25 16:15 Caspofungin 50 mg/ Sodium (Chloride) 260 mls @ 250 mls/hr IV Q24H MEGAN; Protocol Stop: 02/12/25 12:59 Last Infusion: 02/06/25 14:11 Dose: Infused Hydrocortisone Sodium (Succinate 50 mg/ Syringe) 1 mls @ 4 mls/min IV Q12H MEGAN Stop: 03/08/25 08:59 Last Admin: 02/06/25 20:14 Dose: 4 mls/min Loperamide HCl (Loperamide Hcl 2 Mg Cap) 2 mg PO Q6H PRN PRN Reason: Diarrhea Stop: 03/01/25 00:51 Last Admin: 02/06/25 20:13 Dose: 2 mg Mirtazapine (Mirtazapine Tab 15 Mg Tab) 7.5 mg PO HS MEGAN Stop: 02/28/25 20:59 Last Admin: 02/06/25 20:14 Dose: 7.5 mg Miscellaneous (Carbohydrates For Hypoglycemia ) 15 - 30 gm PO UD PRN PRN Reason: Hypoglycemia Protocol Stop: 02/28/25 21:02 Potassium Chloride (Potassium Chloride Crtab 20 Meq Tabcr) 20 meq PO BID MEGAN Stop: 03/06/25 20:59 Last Admin: 02/06/25 20:14 Dose: 20 meq Potassium Chloride (Potassium Chloride Crtab 20 Meq Tabcr) 40 meq PO NOW STA Stop: 02/07/25 08:26
[2025-02-07] MEDS: APIXABAN 5 MG TABLET PO SCH (09:53)
[2025-02-07] MEDS: POTASSIUM CHLORIDE CRTAB 20 MEQ TABCR PO STA (09:56)
[2025-02-07] MEDS: MAGNESIUM SULFATE / D5W 1 GM/100 ML BAG IV ONE (09:58)
--- NOTE | 2025-02-07 10:13 | Nephrology Progress Note ---
Date of Service February 07, 2025 Assessment & Plan (1) Acute on chronic renal failure: Plan: Resolved stage 1 acute kidney injury due to ischemic ATN in setting of septic shock from urinary source in setting of C tropicalis UTI on caspofungin and w/ h/o recurrent K pniae infections; admitted for septic shock also issue in November and s/p R knee joint periprosthetic fracture s/p ORIF [facility] 09/2024. Admission creatinine of 1.6; baseline 0.9-1.0, CKD 3A. She got CTA and at risk for MALINA again but has fortunately done well w/ creat 1.1 today. Will sign off. NEPHRO D/C RECS -monitor bmp, mag, hgb daily while in house -Hospital d/c appt w/ me 3 weeks after hospital d/c for metabolic mgt of kidney stones and monitoring of electrolyte issues; can see me in [facility] or [facility]. Needs cmp (not bmp), mag, PTH, uacm, ACR to be done no more than 72 hrs before appt; should do 24 hr urine about 10 days before appt if able (urorisk) to be ordered by neph nurse -aim for 80-100 oz daily fluid intake most of which should be water -low sodium diet (<2 gm /day) -resume prior to admission regimen of K 40 mEq bid, D3 customary OP dose -see PCP w/in one week of d/c w/ hgb, cmp, mag at that time/ ordered by PCP care coordinated w/ Dr Langston re d/c medications, labs, f/u appts via T Text; we are in agreement. (2) Electrolyte abnormality: Plan: K better but still 3.1 today. Calcium was 6.9. vitamin-D level was 46. She is planned for meq of kcl. Will start kcl 20meq bid which is her home regimen. Mag was 1.7 ; had low mag, K d/t diarrhea. >>increased supplement to 40 mEq bid K and also already had extra 40 mEq dose; will give another 40 mEq extra as well for 120 mEq total po today >>Continue to monitor Na, K, mag daily and supplement as needed >PTH 139, appropriate in setting of low Ca; will need to monitor as OP to consider whether chronic hyperparathyroidism may have role in stone disease, bone fracture issues Admission and Anticipated Discharge Date Admission Date: January 29, 2025 Subjective no interval events. eating/voiding/breathing well. anxious to know plan/dispo. no edema; cont to use walker to ambulate; seen on late AM rounds Review of Systems 2 Review of Systems: All systems reviewed & are unremarkable except as noted in Subjective Physical Exam 2 Constitutional: well developed and well nourished; no acute distress (sitting in bed eating midday meal on RA) Eyes: EOM intact bilaterally ENMT: Ears: no external ear abnormality Nose: no external nose abnormality Mouth: + dry oral mucous membranes Neck: no nuchal rigidity Respiratory: normal respiratory effort Auscultation: + diminished lung sounds Gastrointestinal (Abdomen): Inspection/Auscultation: normal bowel sounds P ercussion/Palpation: abdomen soft; abdomen nontender Musculoskeletal: Extremities: strength 5/5 throughout Skin: no rashes, warm and dry Neurologic: santana, fluent speech, no tremor Results & Data Vital Signs (Past 12 Hours) Vital Signs Temp Pulse Pulse Resp BP Pulse Ox O2 Del Method 02/07/25 08:02 36.3 C L 58 L 19 127/69 96 Room Air 02/07/25 04:18 36.4 C L 60 16 122/70 97 Room Air 02/07/25 01:56 51 L 02/06/25 23:19 36.5 C 54 L 16 108/70 98 Room Air Laboratory Results 02/07/25 06:58 02/07/25 06:58
[2025-02-07] MEDS: POTASSIUM CHLORIDE CRTAB 20 MEQ TABCR PO SCH (18:45)
[2025-02-07] MEDS: HEPARIN 25000 UNIT/500 ML D5W 25,000 UNITS/500 ML BAG IV SCH (21:19)
[2025-02-08 03:43] LABS: ANTI-Xa, UFH(UnfractionatedHep 0.73 IU/ml (0.3-0.7)
[2025-02-08 08:22] LABS: Hematocrit (blood only) 25.8 % (37.0-47.0); Hemoglobin 8.2 g/dl (12.0-16.0); Mean Corpuscular Hemoglobin 29.1 pg (25.0-34.0); Mean Corpuscular Hgb Conc 31.8 g/dL (32.0-36.0); Mean Corpuscular Volume 91.5 fL (80.0-100.0); Mean Platelet Volume 9.2 fL (9.4-12.4); Platelet Count 294 K/uL (130-400); RDW Coefficient of Variation 16.9 % (11.5-14.5); RDW Standard Deviation 56.3 fL (36.4-46.3); Red Blood Count 2.82 M/uL (4.20-5.40)
[2025-02-08 08:42] LABS: BUN Creatinine Ratio 7.8 (10-20); Calcium 7.4 mg/dl (8.6-10.3); Creatinine Clr Calc Pharmacy 34.6 ml/min; Magnesium 1.8 mg/dl (1.7-2.4); Phosphorus 2.4 mg/dl (2.5-4.9)
--- NOTE | 2025-02-08 09:13 | Hospitalist Progress Note ---
Date of Service February 08, 2025 Assessment & Plan (1) Septic shock: (2) Complicated urinary tract infection: (3) Tatum tropicalis infection: (4) Right upper lobe pneumonia: (5) Metabolic acidosis: (6) Ureteral stent present: (7) Electrolyte abnormality: (8) Chronic renal failure (CRF), stage 3b: (9) Diarrhea due to drug: (10) Acute retention of urine: Plan 84-yo F with hx of hydronephrosis 2/2 to nephrolithiasis, ureteral stent placement last September 2024, exchanged January 13, 2025, presenting with Right lower back/flank pain. Septic shock Recurrent UTI in the setting of nephrolithiasis, ureteral stents Initially required ICU admission , and pressor support Off Levophed now S/p ureteral stent exchange by urology - 02/01/2025 Follow-up urine culture and blood cultures History of recurrent Klebsiella UTI, most recent November 2024 Similar presentation back in November 2024 Urine cultx posit. for Gram negat. bacilli and Tatum tropicalis ID consulted Pt is on fluconazole, caspofungin In addition to ceftriaxone + doxycycline - these finished Poss. pneumonia on chest x-ray: Patient denies respiratory symptoms. BioFire - negative nasal MRSA - negative 02/07 Discussed in detail w/ daughter and urology - procedure now planned for 02/10, and will be on IV heparin CT chest No contrast - IMPRESSION: Moderate-sized wedge-shaped area of consolidation superior aspect right lower lobe. Differential diagnosis includes focal pneumonia and pulmonary infarction. Suggest correlation with d-dimer. Recommend follow-up chest CT in 3 months to make sure this completely resolves without underlying nodule. Echo obtained - No vegetation or mass. EF 55-60% DVT/PE LE Doppler - IMPRESSION: Deep venous thrombus within the bilateral popliteal, posterior tibial and peroneal veins. obtained CT PE- 1. Numerous bilateral pulmonary emboli, as described above. No CT evidence for right heart strain. 2. Re-demonstration of a 5.8 x 3.4 cm infarct within the superior segment the right lower lobe. 3. Interval a small to moderate-sized loculated right pleural effusion. 4. Trace pericardial effusion. - cont. 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 PNA Obtained CT PE, dopplers - confirmed DVT/PE - on IV heparin Discussed in detail w/ daughter and urology - procedure now planned for 02/10, and will be on IV heparin Pt seen walking in hallway w/ PT, reports feeling well. No fever, chills, chest pain, shortness of breath. No abd. pain. No LE pain or edema. Review of Systems Review of Systems: All systems reviewed & are unremarkable except as noted in Subjective Physical Exam Physical Exam: Constitutional: WD/WN elderly F in NAD HEENT: NC/AT. Mucous membranes moist. Lungs: CTAB CV: S1-S2, regular Abdomen: Soft, nontender, nondistended Extremities: No significant edema, no tenderness to palpation of LEs Neuro: awake, alert, speech fluent, + hard of hearing, no facial asymmetry, moves extremities Psych: Cooperative, normal mood Results & Data Results & Data Vital Signs (Past 12 Hours) Vital Signs Temp Pulse Pulse Resp BP Pulse Ox O2 Del Method 02/08/25 02:42 36.8 C 63 18 113/67 94 Room Air 02/07/25 23:20 57 L 02/07/25 22:38 36.6 C 57 L 18 116/64 98 Room Air Laboratory Results 02/08/25 02/08/25 Range/Units 07:41 02:48 WBC 7.00 (4.8-10.8) K/ul RBC 2.82 L (4.20-5.40) M/uL Hgb 8.2 L (12.0-16.0) g/dl Hct 25.8 L (37.0-47.0) % MCV 91.5 (80.0-100.0) fL MCH 29.1 (25.0-34.0) pg MCHC 31.8 L (32.0-36.0) g/dL RDW Std Deviation 56.3 H (36.4-46.3) fL RDW Coeff of Addie 16.9 H (11.5-14.5) % Plt Count 294 (130-400) K/uL MPV 9.2 L (9.4-12.4) fL Heparin Anti-Xa, Unfract 0.73 H* (0.3-0.7) IU/ml Sodium 140 (136-145) mmol/L Potassium 4.0 D (3.5-5.1) mmol/L Chloride 112 H (98-107) mmol/L Carbon Dioxide 25 (21-32) mmol/L Anion Gap 3 (3-11) BUN 8 (6-23) mg/dl Creatinine 1.02 (0.6-1.2) mg/dl Est Cr Clr Drug Dosing 34.6 ml/min eGFR 54.59 BUN/Creatinine Ratio 7.8 L (10-20) Glucose 83 (70-99(Fasting)) mg/dl Calcium 7.4 L (8.6-10.3) mg/dl Phosphorus 2.4 L (2.5-4.9) mg/dl Magnesium 1.8 (1.7-2.4) mg/dl Medications Administered Current Inpatient Medications Acetaminophen (Acetaminophen 325 Mg Tab) 650 mg PO Q6H PRN PRN Reason: Pain or Fever Stop: 02/28/25 16:15 Last Admin: 01/30/25 14:38 Dose: 650 mg Dextrose (Dextrose 50% 50 Ml Syringe) 25 - 50 ml IV UD PRN; Protocol PRN Reason: Hypoglycemia Protocol Stop: 02/28/25 21:02 Diclofenac Sodium (Diclofenac Sod 1% Gel 100 Gm Tube) 2 gm EXT TID PRN; Protocol PRN Reason: Pain Stop: 03/01/25 13:59 Last Admin: 01/31/25 20:04 Dose: 2 gm Fluconazole (Fluconazole 100 Mg Tab) 200 mg PO DAILY MEGAN Stop: 02/15/25 08:59 Last Admin: 02/07/25 08:28 Dose: 200 mg Glucagon (Glucagon For Inj 1 Mg Vial) 1 mg SQ UD PRN; Protocol PRN Reason: Hypoglycemia Protocol Stop: 02/28/25 21:02 Glucose (Glucose 40% Gel 15 Gm Tube) 15 - 30 gm PO UD PRN; Protocol PRN Reason: Hypoglycemia Protocol Stop: 02/28/25 21:02 Glucose (Glucose 10 Tab/Tube) 4 - 8 tab PO UD PRN; Protocol PRN Reason: Hypoglycemia Protocol Stop: 02/28/25 21:02 Promethazine HCl (Phenergan) 6.25 mg in 50.25 mls @ 201 mls/hr IV Q6H PRN PRN Reason: Nausea And Vomiting Stop: 02/28/25 16:15 Caspofungin 50 mg/ Sodium (Chloride) 260 mls @ 250 mls/hr IV Q24H MEGAN; Protocol Stop: 02/12/25 12:59 Last Infusion: 02/07/25 15:23 Dose: Infused Hydrocortisone Sodium (Succinate 50 mg/ Syringe) 1 mls @ 4 mls/min IV Q12H MEGAN Stop: 03/08/25 08:59 Last Admin: 02/07/25 20:08 Dose: 4 mls/min Heparin Sodium/Dextrose (Heparin 98626 Unit/500 Ml D5w) 25,000 units in 500 mls @ 13 mls/hr IV .Q24H MEGAN; Protocol Stop: 03/09/25 20:59 Last Titration: 02/08/25 07:09 Dose: 650 units/hr, 13 mls/hr Loperamide HCl (Loperamide Hcl 2 Mg Cap) 2 mg PO Q6H PRN PRN Reason: Diarrhea Stop: 03/01/25 00:51 Last Admin: 02/06/25 20:13 Dose: 2 mg Mirtazapine (Mirtazapine Tab 15 Mg Tab) 7.5 mg PO HS MEGAN Stop: 02/28/25 20:59 Last Admin: 02/07/25 20:09 Dose: 7.5 mg Miscellaneous (Carbohydrates For Hypoglycemia ) 15 - 30 gm PO UD PRN PRN Reason: Hypoglycemia Protocol Stop: 02/28/25 21:02 Potassium Chloride (Potassium Chloride Crtab 20 Meq Tabcr) 40 meq PO BID MEGAN Stop: 03/09/25 16:59 Last Admin: 02/07/25 20:09 Dose: 40 meq
[2025-02-08 10:37] LABS: ANTI-Xa, UFH(UnfractionatedHep 0.59 IU/ml (0.3-0.7)
[2025-02-09 07:16] LABS: Hematocrit (blood only) 25.5 % (37.0-47.0); Hemoglobin 8.1 g/dl (12.0-16.0); Mean Corpuscular Hemoglobin 29.6 pg (25.0-34.0); Mean Corpuscular Hgb Conc 31.8 g/dL (32.0-36.0); Mean Corpuscular Volume 93.1 fL (80.0-100.0); Mean Platelet Volume 9.7 fL (9.4-12.4); Platelet Count 265 K/uL (130-400); RDW Coefficient of Variation 17.3 % (11.5-14.5); RDW Standard Deviation 57.3 fL (36.4-46.3); Red Blood Count 2.74 M/uL (4.20-5.40); White Blood Count 7.28 K/ul (4.8-10.8)
--- NOTE | 2025-02-09 07:27 | Hospitalist Progress Note ---
Date of Service February 09, 2025 Assessment & Plan (1) Septic shock: (2) Complicated urinary tract infection: (3) Tatum tropicalis infection: (4) Right upper lobe pneumonia: (5) Metabolic acidosis: (6) Ureteral stent present: (7) Electrolyte abnormality: (8) Chronic renal failure (CRF), stage 3b: (9) Diarrhea due to drug: (10) Acute retention of urine: Plan 84-yo F with hx of hydronephrosis 2/2 to nephrolithiasis, ureteral stent placement last September 2024, exchanged January 13, 2025, presenting with Right lower back/flank pain. Septic shock Recurrent UTI in the setting of nephrolithiasis, ureteral stents Initially required ICU admission , and pressor support Off Levophed now S/p ureteral stent exchange by urology - 02/01/2025 Follow-up urine culture and blood cultures History of recurrent Klebsiella UTI, most recent November 2024 Similar presentation back in November 2024 Urine cultx posit. for Gram negat. bacilli and Tatum tropicalis ID consulted Pt is on fluconazole, caspofungin In addition to ceftriaxone + doxycycline - these finished Poss. pneumonia on chest x-ray: Patient denies respiratory symptoms. BioFire - negative nasal MRSA - negative 02/07 Discussed in detail w/ daughter and urology - procedure now planned for 02/10, and will be on IV heparin CT chest No contrast - IMPRESSION: Moderate-sized wedge-shaped area of consolidation superior aspect right lower lobe. Differential diagnosis includes focal pneumonia and pulmonary infarction. Suggest correlation with d-dimer. Recommend follow-up chest CT in 3 months to make sure this completely resolves without underlying nodule. Echo obtained - No vegetation or mass. EF 55-60% DVT/PE LE Doppler - IMPRESSION: Deep venous thrombus within the bilateral popliteal, posterior tibial and peroneal veins. obtained CT PE- 1. Numerous bilateral pulmonary emboli, as described above. No CT evidence for right heart strain. 2. Re-demonstration of a 5.8 x 3.4 cm infarct within the superior segment the right lower lobe. 3. Interval a small to moderate-sized loculated right pleural effusion. 4. Trace pericardial effusion. - cont. IV heparin, plan to switch to Eliquis on DC Acute kidney injury Secondary to above received IVF, required pressors Monitor renal function daily Nephrology consulted and following closely Cr now improved to 1 Other chronic medical problems Paroxysmal atrial tachycardia- hold metoprolol for now in light of hypotension Prostatic right knee joint periprosthetic fracture Status post ORIF at 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 History of right breast cancer History of benign neoplasm of brain CODE STATUS Full code as per patient Disposition Lives at home PT OT Admission and Anticipated Discharge Date Admission Date: January 29, 2025 Subjective Pt seen in follow up of septic shock Initially in ICU Had ureteral stents exchanged by urology (02/01/2025) UTI w/ Klebsiella and Tatum - started on fluconazole and caspofungin ID consulted and discussed with Acute DVT/PE - on IV heparin Discussed in detail w/ daughter and urology - procedure now planned for 02/10, and will be on IV heparin Pt seen walking in hallway w/ PT yesterday, today seen sitting up in bed, reports feeling well. No fever, chills, chest pain, shortness of breath. No abd. pain. No LE pain or edema. Review of Systems Review of Systems: All systems reviewed & are unremarkable except as noted in Subjective Physical Exam Physical Exam: Constitutional: WD/WN elderly F in NAD HEENT: NC/AT. Mucous membranes moist. Lungs: CTAB CV: S1-S2, regular Abdomen: Soft, nontender, nondistended Extremities: No significant edema, no tenderness to palpation of LEs Neuro: awake, alert, speech fluent, + hard of hearing, no facial asymmetry, moves extremities Psych: Cooperative, normal mood Results & Data Results & Data Vital Signs (Past 12 Hours) Vital Signs Temp Pulse Pulse Resp BP Pulse Ox O2 Del Method 02/09/25 02:41 36.7 C 56 L 18 117/69 97 Room Air 02/08/25 23:28 52 L 02/08/25 22:49 36.6 C 57 L 18 101/61 97 Room Air Laboratory Results 02/09/25 02/08/25 Range/Units 06:33 09:42 WBC 7.28 (4.8-10.8) K/ul RBC 2.74 L (4.20-5.40) M/uL Hgb 8.1 L (12.0-16.0) g/dl Hct 25.5 L (37.0-47.0) % MCV 93.1 (80.0-100.0) fL MCH 29.6 (25.0-34.0) pg MCHC 31.8 L (32.0-36.0) g/dL RDW Std Deviation 57.3 H (36.4-46.3) fL RDW Coeff of Addie 17.3 H (11.5-14.5) % Plt Count 265 (130-400) K/uL MPV 9.7 (9.4-12.4) fL Heparin Anti-Xa, Unfract 0.47 0.59 (0.3-0.7) IU/ml Sodium 140 (136-145) mmol/L Potassium 4.7 (3.5-5.1) mmol/L Chloride 113 H (98-107) mmol/L Carbon Dioxide 23 (21-32) mmol/L Anion Gap 4 (3-11) BUN 7 (6-23) mg/dl Creatinine 1.08 (0.6-1.2) mg/dl Est Cr Clr Drug Dosing 32.6 ml/min eGFR 50.97 BUN/Creatinine Ratio 6.5 L (10-20) Glucose 86 (70-99(Fasting)) mg/dl Calcium 7.5 L (8.6-10.3) mg/dl Phosphorus 3.1 (2.5-4.9) mg/dl Magnesium 1.7 (1.7-2.4) mg/dl Medications Administered Current Inpatient Medications Acetaminophen (Acetaminophen 325 Mg Tab) 650 mg PO Q6H PRN PRN Reason: Pain or Fever Stop: 02/28/25 16:15 Last Admin: 01/30/25 14:38 Dose: 650 mg Dextrose (Dextrose 50% 50 Ml Syringe) 25 - 50 ml IV UD PRN; Protocol PRN Reason: Hypoglycemia Protocol Stop: 02/28/25 21:02 Diclofenac Sodium (Diclofenac Sod 1% Gel 100 Gm Tube) 2 gm EXT TID PRN; Protocol PRN Reason: Pain Stop: 03/01/25 13:59 Last Admin: 01/31/25 20:04 Dose: 2 gm Fluconazole (Fluconazole 100 Mg Tab) 200 mg PO DAILY MEGAN Stop: 02/15/25 08:59 Last Admin: 02/08/25 10:06 Dose: 200 mg Glucagon (Glucagon For Inj 1 Mg Vial) 1 mg SQ UD PRN; Protocol PRN Reason: Hypoglycemia Protocol Stop: 02/28/25 21:02 Glucose (Glucose 40% Gel 15 Gm Tube) 15 - 30 gm PO UD PRN; Protocol PRN Reason: Hypoglycemia Protocol Stop: 02/28/25 21:02 Glucose (Glucose 10 Tab/Tube) 4 - 8 tab PO UD PRN; Protocol PRN Reason: Hypoglycemia Protocol Stop: 02/28/25 21:02 Promethazine HCl (Phenergan) 6.25 mg in 50.25 mls @ 201 mls/hr IV Q6H PRN PRN Reason: Nausea And Vomiting Stop: 02/28/25 16:15 Caspofungin 50 mg/ Sodium (Chloride) 260 mls @ 250 mls/hr IV Q24H MEGAN; Protocol Stop: 02/12/25 12:59 Last Infusion: 02/08/25 16:20 Dose: Infused Hydrocortisone Sodium (Succinate 50 mg/ Syringe) 1 mls @ 4 mls/min IV Q12H MEGAN Stop: 03/08/25 08:59 Last Admin: 02/08/25 20:55 Dose: 4 mls/min Heparin Sodium/Dextrose (Heparin 33175 Unit/500 Ml D5w) 25,000 units in 500 mls @ 13 mls/hr IV .Q24H MEGAN; Protocol Stop: 03/09/25 20:59 Last Admin: 02/09/25 01:58 Dose: 650 units/hr, 13 mls/hr Loperamide HCl (Loperamide Hcl 2 Mg Cap) 2 mg PO Q6H PRN PRN Reason: Diarrhea Stop: 03/01/25 00:51 Last Admin: 02/06/25 20:13 Dose: 2 mg Mirtazapine (Mirtazapine Tab 15 Mg Tab) 7.5 mg PO HS MEGAN Stop: 02/28/25 20:59 Last Admin: 02/08/25 20:55 Dose: 7.5 mg Miscellaneous (Carbohydrates For Hypoglycemia ) 15 - 30 gm PO UD PRN PRN Reason: Hypoglycemia Protocol Stop: 02/28/25 21:02 Potassium Chloride (Potassium Chloride Crtab 20 Meq Tabcr) 40 meq PO BID MEGAN Stop: 03/09/25 16:59 Last Admin: 02/08/25 20:55 Dose: 40 meq
[2025-02-09 07:36] LABS: ANTI-Xa, UFH(UnfractionatedHep 0.47 IU/ml (0.3-0.7); BUN Creatinine Ratio 6.5 (10-20); Calcium 7.5 mg/dl (8.6-10.3); Creatinine Clr Calc Pharmacy 32.6 ml/min; Magnesium 1.7 mg/dl (1.7-2.4); Phosphorus 3.1 mg/dl (2.5-4.9); Potassium 4.7 mmol/L (3.5-5.1)
--- NOTE | 2025-02-09 09:16 | Urology Progress Note ---
Date of Service February 09, 2025 Assessment & Plan (1) Bilateral kidney stones: (2) Tatum tropicalis infection: (3) Ureteral stent present: Plan: Presented acutely ill with urosepsis She is afebrile, stable vitals Labs reviewedcreatinine 1.08, WBC 7.28 Blood cultures with no growth to date Urine culture with Tatum tropicalis Remains on IV caspofungin, Diflucan per ID Patient status post bilateral stent exchange on 02/01 She is scheduled for stone treatment tomorrow with Dr. Joshua Will update CT abd pelvis today to reassess stone burden per Dr. Joshua Proceed to OR for cystoscopy, bilateral ureteral nephroscopy, laser lithotripsy and bilateral stent exchange on 02/10/2025 Make n.p.o. at [place] for procedure Continue antifungals, supportive care All questions answered will follow Admission and Anticipated Discharge Date Admission Date: January 29, 2025 Subjective Patient seen and examined at bedside this morning. She is awake and sitting up in bed. Denies flank pain. No fever or chills. Voiding spontaneously. No complaints at present. Review of Systems Constitutional: as per Subjective / HPI Genitourinary: as per Subjective / HPI Physical Exam Constitutional: well developed and well nourished; no acute distress Respiratory: normal respiratory effort; no respiratory distress and no labored breathing Gastrointestinal (Abdomen): Inspection/Auscultation: abdomen normal to inspection Musculoskeletal: Head/Neck/Chest: normocephalic Neurologic: moves all extremities and awake Psychiatric: Orientation: alert and oriented x 3 Results & Data Vital Signs (Past 12 Hours) Vital Signs Temp Pulse Pulse Resp BP Pulse Ox O2 Del Method 02/09/25 07:27 36.7 C 61 17 115/73 98 Room Air 02/09/25 02:41 36.7 C 56 L 18 117/69 97 Room Air 02/08/25 23:28 52 L 02/08/25 22:49 36.6 C 57 L 18 101/61 97 Room Air PG Care Time/CCT Total # of Minutes Spent Total Time Spent with Patient: Total time spent is greater than 50% in coordination of care (as documented) at patient's floor/unit and/or counseling patient: Coding Level of Care Code 35216 SUB INP/OBS CARE 12/18MIN Diagnoses Bilateral kidney stones N20.0 Tatum tropicalis infection B37.9 Ureteral stent present Z96.0
--- NOTE | 2025-02-09 11:10 | CT Scan Report ---
CT OF THE ABDOMEN AND PELVIS WITHOUT CONTRAST CLINICAL HISTORY: Nephrolithiasis. COMPARISON STUDY: CT of the abdomen and pelvis February 01, 2025. KUB February 01, 2025. TECHNIQUE: Axial images of the abdomen and pelvis were obtained without IV contrast. Images were revi ewed in the axial, sagittal, and coronal planes. Automated exposure control was utilized for the sky dy. A dose lowering technique was utilized adhering to the principles of ALARA. FINDINGS: A small right pleural effusion has increased in size since prior exam. Body wall edema is p resent. No pneumatosis, free air or portal venous gas is identified. A trace pericardial effusion has slightly increased. Unenhanced images of the liver, spleen, adrenal glands and pancreas are unremark able. There is no biliary or pancreatic ductal dilatation. There is no lymphadenopathy. Apparent rect al wall thickening is likely due to underdistention. There is no evidence for a bowel obstruction. Th e colon is fluid-filled. A small amount of gas within the bladder is likely related to recent instrum entation. The bladder is moderately distended. Bilateral ureteral stents are place. There are no uret eral calculi or fragments. Multiple left renal calculi measure up to 8 mm. Several right renal calcul i measure up to 6 mm. Mild to moderate right hydronephrosis has decreased since CT of January 29, 2025. Mild left hydronephrosis is unchanged. Bilateral urothelial thickening is again noted. Bilateral femo ral internal fixation hardware is incidentally noted. IMPRESSION: 1. Bilateral ureteral stents in place. Bilateral nephrolithiasis. No ureteral calculi or fragments. 2. Mild to moderate right hydronephrosis, mildly decreased since prior CT. No change in mild left hyd ronephrosis. Persistent bilateral urothelial thickening of the proximal ureters. 3. No bowel obstruction. Fluid-filled colon. This could indicate a diarrheal state. 4. Apparent rectal wall thickening, likely due to underdistention. 5. Increase in a small right pleural effusion. Anasarca. ACT 112: Negative or not required by law. Electronically signed by: Redd Salcido M.D. 02/09/2025 11:09 AM
[2025-02-09] MEDS: HEPARIN 25000 UNIT/500 ML D5W 25,000 UNITS/500 ML BAG IV SCH (13:50)
[2025-02-10 06:50] LABS: Hematocrit (blood only) 24.5 % (37.0-47.0); Hemoglobin 7.6 g/dl (12.0-16.0); Mean Corpuscular Hemoglobin 29.1 pg (25.0-34.0); Mean Corpuscular Volume 93.9 fL (80.0-100.0); Mean Platelet Volume 9.7 fL (9.4-12.4); Platelet Count 265 K/uL (130-400); RDW Coefficient of Variation 17.5 % (11.5-14.5); Red Blood Count 2.61 M/uL (4.20-5.40); White Blood Count 7.35 K/ul (4.8-10.8)
[2025-02-10 07:45] LABS: BUN Creatinine Ratio 7.1 (10-20); Calcium 7.2 mg/dl (8.6-10.3); Creatinine Clr Calc Pharmacy 31.2 ml/min; Magnesium 1.6 mg/dl (1.7-2.4); Phosphorus 3.6 mg/dl (2.5-4.9)
--- NOTE | 2025-02-10 07:56 | Hospitalist Progress Note ---
Date of Service February 10, 2025 Assessment & Plan (1) Septic shock: (2) Complicated urinary tract infection: (3) Tatum tropicalis infection: (4) Right upper lobe pneumonia: (5) Metabolic acidosis: (6) Ureteral stent present: (7) Electrolyte abnormality: (8) Chronic renal failure (CRF), stage 3b: (9) Diarrhea due to drug: (10) Acute retention of urine: Plan 84-yo F with hx of hydronephrosis 2/2 to nephrolithiasis, ureteral stent placement last September 2024, exchanged January 13, 2025, presenting with Right lower back/flank pain. Septic shock Recurrent UTI in the setting of nephrolithiasis, ureteral stents Initially required ICU admission , and pressor support Off Levophed now S/p ureteral stent exchange by urology - 02/01/2025 Follow-up urine culture and blood cultures History of recurrent Klebsiella UTI, most recent November 2024 Similar presentation back in November 2024 Urine cultx posit. for Gram negat. bacilli and Tatum tropicalis ID consulted Pt is on fluconazole, caspofungin In addition to ceftriaxone + doxycycline - these finished Poss. pneumonia on chest x-ray: Patient denies respiratory symptoms. BioFire - negative nasal MRSA - negative 02/07 Discussed in detail w/ daughter and urology - procedure now planned for 02/10, and will be on IV heparin 02/10 Pt is now s/p Cystoscopy with Bilateral Retrograde Pyelogram and Exchange of Stent Catheter, Evacuation and irrigation of bladder, Right Ureteroscopy, Laser Lithotripsy, Basket Extraction of the Stone, Left Ureteroscopy, Laser Lithotripsy of ureteral and renal stones, Basket Extraction of the Stone w/ Dr. Joshua 02/10 Discussed w/ ID- - f/u C tropicalis susceptibilities - continue fluconazole 200mg q24h (renally adjusted for CrCl <50) x 2 weeks (end 02/14) - continue caspofungin 50mg IV daily x 2 weeks (start 02/01, end 02/14) - monitor weekly CBC w diff, BMP, and LFTs while on fluconazole and IV antifungal - per urology, plan to remove stents in the coming weeks CT chest No contrast - IMPRESSION: Moderate-sized wedge-shaped area of consolidation superior aspect right lower lobe. Differential diagnosis includes focal pneumonia and pulmonary infarction. Suggest correlation with d-dimer. Recommend follow-up chest CT in 3 months to make sure this completely resolves without underlying nodule. Echo obtained - No vegetation or mass. EF 55-60% DVT/PE LE Doppler - IMPRESSION: Deep venous thrombus within the bilateral popliteal, posterior tibial and peroneal veins. obtained CT PE- 1. Numerous bilateral pulmonary emboli, as described above. No CT evidence for right heart strain. 2. Re-demonstration of a 5.8 x 3.4 cm infarct within the superior segment the right lower lobe. 3. Interval a small to moderate-sized loculated right pleural effusion. 4. Trace pericardial effusion. - cont. 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 History of right breast cancer History of benign neoplasm of brain CODE STATUS Full code as per patient Disposition Lives at home PT OT Admission and Anticipated Discharge Date Admission Date: January 29, 2025 Subjective Pt seen in follow up of septic shock Initially in ICU Had ureteral stents exchanged by urology (02/01/2025) UTI w/ Klebsiella and Tatum - started on fluconazole and caspofungin ID consulted and discussed with -> end date for both updated to 02/14 Acute DVT/PE - on IV heparin -> will switch to eliquis tonight Today (02/10), pt s/p urological procedure Pt currently sitting up in bed in NAD, receiving blood transfusion ordered by urology. Hgb this AM 7.6 No fever, chills, chest pain, shortness of breath. No abd. pain. No LE pain or edema. discussed w/ RN , will re-check H&H after 1 unit Review of Systems Review of Systems: All systems reviewed & are unremarkable except as noted in Subjective Physical Exam Physical Exam: Constitutional: WD/WN elderly F in NAD HEENT: NC/AT. Mucous membranes moist. Lungs: CTAB CV: S1-S2, regular Abdomen: Soft, nontender, nondistended Extremities: No significant edema, no tenderness to palpation of LEs Neuro: awake, alert, speech fluent, + hard of hearing, no facial asymmetry, moves extremities Psych: Cooperative, normal mood Results & Data Results & Data Vital Signs (Past 12 Hours) Vital Signs Temp Pulse Pulse Resp BP Pulse Ox O2 Del Method 02/10/25 02:37 36.6 C 58 L 18 112/70 97 Room Air 02/09/25 22:58 58 L 02/09/25 22:55 36.6 C 65 18 118/74 98 Room Air Laboratory Results 02/10/25 Range/Units 05:57 WBC 7.35 (4.8-10.8) K/ul RBC 2.61 L (4.20-5.40) M/uL Hgb 7.6 L (12.0-16.0) g/dl Hct 24.5 L (37.0-47.0) % MCV 93.9 (80.0-100.0) fL MCH 29.1 (25.0-34.0) pg MCHC 31.0 L (32.0-36.0) g/dL RDW Std Deviation 60.0 H (36.4-46.3) fL RDW Coeff of Addie 17.5 H (11.5-14.5) % Plt Count 265 (130-400) K/uL MPV 9.7 (9.4-12.4) fL Sodium 140 (136-145) mmol/L Potassium 4.0 (3.5-5.1) mmol/L Chloride 116 H (98-107) mmol/L Carbon Dioxide 19 L (21-32) mmol/L Anion Gap 5 (3-11) BUN 8 (6-23) mg/dl Creatinine 1.13 (0.6-1.2) mg/dl Est Cr Clr Drug Dosing 31.2 ml/min eGFR 48.27 BUN/Creatinine Ratio 7.1 L (10-20) Glucose 84 (70-99(Fasting)) mg/dl Calcium 7.2 L (8.6-10.3) mg/dl Phosphorus 3.6 (2.5-4.9) mg/dl Magnesium 1.6 L (1.7-2.4) mg/dl Medications Administered Current Inpatient Medications Acetaminophen (Acetaminophen 325 Mg Tab) 650 mg PO Q6H PRN PRN Reason: Pain or Fever Stop: 02/28/25 16:15 Last Admin: 01/30/25 14:38 Dose: 650 mg Dextrose (Dextrose 50% 50 Ml Syringe) 25 - 50 ml IV UD PRN; Protocol PRN Reason: Hypoglycemia Protocol Stop: 02/28/25 21:02 Diclofenac Sodium (Diclofenac Sod 1% Gel 100 Gm Tube) 2 gm EXT TID PRN; Protocol PRN Reason: Pain Stop: 03/01/25 13:59 Last Admin: 01/31/25 20:04 Dose: 2 gm Fluconazole (Fluconazole 100 Mg Tab) 200 mg PO DAILY MEGAN Stop: 02/15/25 08:59 Last Admin: 02/09/25 08:52 Dose: 200 mg Glucagon (Glucagon For Inj 1 Mg Vial) 1 mg SQ UD PRN; Protocol PRN Reason: Hypoglycemia Protocol Stop: 02/28/25 21:02 Glucose (Glucose 40% Gel 15 Gm Tube) 15 - 30 gm PO UD PRN; Protocol PRN Reason: Hypoglycemia Protocol Stop: 02/28/25 21:02 Glucose (Glucose 10 Tab/Tube) 4 - 8 tab PO UD PRN; Protocol PRN Reason: Hypoglycemia Protocol Stop: 02/28/25 21:02 Promethazine HCl (Phenergan) 6.25 mg in 50.25 mls @ 201 mls/hr IV Q6H PRN PRN Reason: Nausea And Vomiting Stop: 02/28/25 16:15 Caspofungin 50 mg/ Sodium (Chloride) 260 mls @ 250 mls/hr IV Q24H MEGAN; Protocol Stop: 02/12/25 12:59 Last Infusion: 02/09/25 14:55 Dose: Infused Hydrocortisone Sodium (Succinate 50 mg/ Syringe) 1 mls @ 4 mls/min IV Q12H MEGAN Stop: 03/08/25 08:59 Last Admin: 02/09/25 20:18 Dose: 4 mls/min Heparin Sodium/Dextrose (Heparin 16446 Unit/500 Ml D5w) 25,000 units in 500 mls @ 0 mls/hr IV .Q0M MEGAN; Protocol Stop: 03/11/25 11:59 Last Titration: 02/10/25 06:54 Dose: 0 units/hr, 0 mls/hr Loperamide HCl (Loperamide Hcl 2 Mg Cap) 2 mg PO Q6H PRN PRN Reason: Diarrhea Stop: 03/01/25 00:51 Last Admin: 02/06/25 20:13 Dose: 2 mg Mirtazapine (Mirtazapine Tab 15 Mg Tab) 7.5 mg PO HS MEGAN Stop: 02/28/25 20:59 Last Admin: 02/09/25 20:17 Dose: 7.5 mg Miscellaneous (Carbohydrates For Hypoglycemia ) 15 - 30 gm PO UD PRN PRN Reason: Hypoglycemia Protocol Stop: 02/28/25 21:02 Potassium Chloride (Potassium Chloride Crtab 20 Meq Tabcr) 40 meq PO BID MEGAN Stop: 03/09/25 16:59 Last Admin: 02/09/25 20:16 Dose: 40 meq
--- NOTE | 2025-02-10 08:31 | Urology Progress Note ---
Date of Service February 10, 2025 Assessment & Plan (1) Tatum tropicalis infection: (2) Bilateral pulmonary embolism: (3) Acute on chronic renal failure: (4) Chronic renal failure (CRF), stage 3b: (5) Bilateral kidney stones: (6) Ureteral stent present: Plan Patient with complicated history of severe bilateral stone disease with obstruction and chronic retention and chronic incomplete emptying significant UTIs with most recently a severe fungal infection and recurrent sepsis. Has undergone extensive stone treatment with drastic debulking and extraction of stone disease. Has bilateral stents in position which were changed last week. Patient has been recovering from severe sepsis. Has been diagnosed with recent PE. Is undergoing anticoagulation. Has been completing course of antifungal as well as antibiotic coverage. After consultation with infectious disease as well as assessment by the primary team it was requested to move forward with stone treatment and extraction while patient was undergoing observation and close monitoring and management of ongoing infection issues. Patient has been on heparin drip which was held this morning. Discussed extensively risk and benefits. Reviewed with patient and family concerns risks and potential issues. Discussed high risk procedure secondary to recent PE. Reviewed extensively recent sepsis as well as recovery over time. Extensive conversation of risks and benefits. Significant increase risks were thoroughly reviewed and benefits discussed at length for procedure. These include bleeding, infection, injury to surrounding tissues or organs, and risks associated with anesthesia. Discussed possible worsening of ongoing chronic issues and possible redevelopment of sepsis as well as significant deconditioning after recent major illnesses. Patient states understanding and agrees to proceed. Will sign consent and schedule. Patient found to have anemia this morning on morning labs. Has been going down slowly since starting the anticoagulation. Had been a 8.5 then 8.1 now 7.6. Due to need for chronic anticoagulation history of cardiac issues and anemia will plan to transfuse 2 units of packed red blood cells over today. Will plan to proceed with procedure with plans for active transfusion moving forward. Extensively discussed with patient. Will send alert to hospitalist team for further management and further workup of anemia Plan for cystoscopy with bilateral ureteroscopy and stone treatment Admission and Anticipated Discharge Date Admission Date: January 29, 2025 Subjective Postop from stent placement for obstruction issues. Patient has history of severe stone disease. Has bilateral stones and has undergone extensive treatment of stones in order to clear large volume. Patient had to be admitted due to severe UTI issues with chronic infection issues and chronic obstructive issues. Had bilateral stents exchanged last week and has been on antifungal therapy. Infectious disease and hospitalist team had admitted the patient and were undergoing monitoring with supportive care were requesting treatment of stones while patient was admitted and undergoing treatment. Patient has been tolerating well. Has noticed some frequency and urgency. Has not had severe pain in the back and flank. Does have occasional burning and irritation. No severe episodes or major changes. No new nausea or vomiting. Had tolerated anesthesia without major problems Review of Systems Review of Systems: All systems reviewed & are unremarkable except as noted in HPI & below Physical Exam Physical Exam: General: Alert in no acute distress. Advanced age HEENT: Normocephalic Atraumatic. Inspection normal. Cranial Nerves 2-12 Grossly intact. Normal inspection of face. Normal inspection of neck. Psychologic: Normal affect. Respiratory: Mild labored. No use of accessory muscles. No tachypnea or dyspnea. Cardiovascular: No tachycardia Skin: Center and Dry. No rashes or visible lesions. Extremities/Lymphatics: No edema Abdomen: Soft Non-distended. No rebound or guarding. Results & Data Vital Signs (Past 12 Hours) Vital Signs Temp Pulse Pulse Resp BP Pulse Ox O2 Del Method 02/10/25 08:04 36.6 C 59 L 18 114/70 99 Room Air 02/10/25 02:37 36.6 C 58 L 18 112/70 97 Room Air 02/09/25 22:58 58 L 02/09/25 22:55 36.6 C 65 18 118/74 98 Room Air PG Care Time/CCT Total # of Minutes Spent Total Time Spent with Patient: Total time spent is greater than 50% in coordination of care (as documented) at patient's floor/unit and/or counseling patient: Coding Level of Care Code 47711 SUB INP/OBS CARE 3/50MIN Diagnoses Tatum tropicalis infection B37.9 Bilateral pulmonary embolism I26.99 Acute on chronic renal failure N17.9; N18.9 Chronic renal failure (CRF), stage 3b N18.32 Bilateral kidney stones N20.0 Ureteral stent present Z96.0
[2025-02-10] MEDS: HOLD ORDER: HEPARIN INFUSION ONE (08:52)
--- NOTE | 2025-02-10 09:17 | Anesthesiology Consultation ---
Date of Service February 10, 2025 Assessment & Plan Chart Review Chart Review: Acceptable Risk for Surgery Consults Requested none History Surgery Operation Date: 02/01/25 07:55 Proposed Procedures p Cystoscopy, Bilateral Ureteral Stent Exchange - Markie Mckeon MD Operation Date: 02/10/25 09:45 Proposed Procedures p Cystoscopy, Ureteronephroscopy, Retrograde Pyelogram, With Possible Ureteral Dilation, Laser Destruction or Extraction of the Stone, Insertion or Exchange of Stent Catheter - Bilateral - Guillermo Joshua DO Height/Weight Height: 5 ft 3 in Weight: 59.6 kg Allergies Allergy/AdvReac Type Severity Reaction Status Date / Time influenza virus vaccine, Allergy Severe [place] Verified 01/29/25 12:51 specific [place] Syndrome Sulfa (Sulfonamide Allergy Unknown Unknown Verified 01/29/25 12:51 Antibiotics) cephalexin AdvReac Mild Nausea Verified 01/29/25 12:51 Medications Home Medications Medication Instructions Recorded Confirmed Last Taken ferrous sulfate 325 mg (65 mg 325 mg PO QDL 07/17/18 01/29/25 01/28/25 iron) tablet (iron) raloxifene 60 mg tablet 60 mg PO QAM 01/20/20 01/29/25 01/29/25 cyanocobalamin (vitamin B-12) 500 500 mcg PO QAM 12/20/20 01/29/25 01/29/25 mcg tablet (Vitamin B-12) cranberry extract 500 mg capsule 500 mg PO QAM 05/08/21 01/29/25 01/29/25 (Cranberry Concentrate) potassium chloride 10 mEq 40 meq PO BIDWMEAL 04/09/22 01/29/25 01/29/25 tablet,extended release acetaminophen 500 mg tablet 1,000 mg PO Q8 PRN Pain 02/05/24 01/29/25 Unknown loperamide 2 mg capsule 2 mg PO Q6H PRN loose stool #30 12/04/24 01/29/25 01/28/25 caps Bifidobacterium infantis 4 mg 4 mg PO QDL 01/04/25 01/29/25 01/28/25 capsule (Align (B.infantis)) cholecalciferol (vitamin D3) 25 25 mcg PO QDL 01/29/25 01/29/25 01/28/25 mcg (1,000 unit) tablet (Vitamin D3) mirtazapine 7.5 mg tablet 7.5 mg PO HS 01/29/25 01/29/25 01/28/25 Active Medications Generic Name Dose Route Start Last Admin Trade Name Carmela PRN Reason Stop Dose Admin Acetaminophen 650 mg 01/29/25 16:16 01/30/25 14:38 Acetaminophen 325 Mg Tab PO 02/28/25 16:15 650 mg Q6H PRN Administration Pain or Fever Diclofenac Sodium 2 gm 01/30/25 14:00 01/31/25 20:04 Diclofenac Sod 1% Gel 100 Gm Tube EXT 03/01/25 13:59 2 gm TID PRN Administration Pain Protocol Fluconazole 200 mg 02/05/25 09:00 02/09/25 08:52 Fluconazole 100 Mg Tab PO 02/15/25 08:59 200 mg DAILY MEGAN Administration Caspofungin 50 mg/ Sodium 260 mls @ 250 mls/hr 02/02/25 13:00 02/09/25 14:55 Chloride IV 02/12/25 12:59 Infused Q24H MEGAN Infusion Protocol Hydrocortisone Sodium 1 mls @ 4 mls/min 02/06/25 09:00 02/09/25 20:18 Succinate 50 mg/ Syringe IV 03/08/25 08:59 4 mls/min Q12H MEGAN Administration Heparin Sodium/Dextrose 25,000 units in 500 mls @ 0 mls/hr 02/09/25 12:00 02/10/25 06:54 Heparin 92233 Unit/500 Ml D5w IV 03/11/25 11:59 0 units/hr .Q0M MEGAN 0 mls/hr Titration Protocol 0 UNITS/HR Loperamide HCl 2 mg 01/30/25 00:52 02/06/25 20:13 Loperamide Hcl 2 Mg Cap PO 03/01/25 00:51 2 mg Q6H PRN Administration Diarrhea Mirtazapine 7.5 mg 01/29/25 21:00 02/09/25 20:17 Mirtazapine Tab 15 Mg Tab PO 02/28/25 20:59 7.5 mg HS MEGAN Administration Potassium Chloride 40 meq 02/07/25 17:00 02/09/25 20:16 Potassium Chloride Crtab 20 Meq Tabcr PO 03/09/25 16:59 40 meq BID MEGAN Administration NPO Date Last Intake of Fluids: 02/09/25 Time Last Intake of Fluids: 19:00 Date Last Intake of Solids: 02/09/25 Time Last Intake of Solids: 19:00 Past Medical History Medical History Depression Hypotension States Metoprolol on hold Hx of sepsis Sepsis/MALINA r/t UTI, hospitalized at [facility] 10/2024 History of colitis Neuropathy involving both lower extremities Hydronephrosis concurrent with and due to calculi of kidney and ureter History of seizure Single episode s/p benign brain tumor excision (1998) No issues since History of right breast cancer (2000) s/p radiation Kidney stones Anemia Chronic Hx of Guillain-[place] syndrome (1998) After flu shot (1998) Mild residual LE neuropathy Osteoarthritis 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 Past Family History Family History Mother Macular degeneration Father Kidney stone Diabetes Past Surgical History Surgical History History of postoperative nausea and vomiting History of open reduction and internal fixation (ORIF) procedure right femur fx - [facility] - 09/2024 Hx of lithotripsy (01/18/21) S/P cystoscopy with ureteral stent placement Multiple History of tooth extraction History of colonoscopy History of appendectomy History of total knee replacement R/L (2020) History of hip surgery right and left due to falling History of brain surgery (1998) 1998; benign tumor excision Hx of hysterectomy Hx of lumpectomy Right breast- had xrt Social History Smoking Status: Never smoker Do You Dip or Chew Tobacco: No Hx Alcohol Use: No Hx Substance Use: No substance use type: does not use Physical Exam Vital Signs Last Vital Signs Temp 36.7 C 02/10/25 08:35 Pulse 59 L 02/10/25 08:35 Resp 20 02/10/25 08:35 BP 119/66 02/10/25 08:35 Pulse Ox 97 02/10/25 08:35 O2 Del Method Room Air 02/10/25 08:35 O2 Flow Rate 6 02/01/25 13:20 Testing Laboratory Results 02/10/25 05:57 02/10/25 05:57 PT 11.3 Seconds (9.0-12.0) 02/03/25 12:41 INR 1.0 (0.9-1.1) 02/03/25 12:41 APTT > 139 Seconds (21-31) H* 02/03/25 12:41 Hemoglobin A1c 5.2 % (4.5-5.6) 01/31/25 04:20 Urine Color [place] 01/29/25 12:38 Urine Appearance Turbid (Clear) A 01/29/25 12:38 Urine pH 5.5 (4.5-7.5) 01/29/25 12:38 Ur Specific [place] 1.012 (1.000-1.030) 01/29/25 12:38 Urine Protein 2+ (Negative) H 01/29/25 12:38 Urine Glucose (UA) Negative (Negative) 01/29/25 12:38 Urine Ketones Negative (Negative) 01/29/25 12:38 Urine Nitrite Negative (Negative) 01/29/25 12:38 Ur Leukocyte Esterase 3+ (Negative) H 01/29/25 12:38 Urine WBC (Auto) >50 /hpf (0-5) H 01/29/25 12:38 Urine RBC (Auto) >20 /hpf (0-2) H 01/29/25 12:38 U Hyaline Cast (Auto) 11-20 /lpf (0-2) H 01/29/25 12:38 U Epithel Cells (Auto) 11-20 /hpf (0-2) H 01/29/25 12:38 Urine Bacteria (Auto) 2+ (None Seen) H 01/29/25 12:38 01/29/25 10:59 Aerobic Blood Culture - Final Blood No growth in Aerobic bottle after 5 days. Anaerobic Blood Culture - Final No growth in Anaerobic bottle after 5 days. 01/29/25 11:20 Aerobic Blood Culture - Final Blood No growth in Aerobic bottle after 5 days. Anaerobic Blood Culture - Final No growth in Anaerobic bottle after 5 days. 01/29/25 12:38 Urine Culture - Preliminary Urine,Clean Catch Tatum tropicalis
[2025-02-10] MEDS ORDERED: ONDANSETRON INJ 2 MG/ML 2 ML VIAL IV PRN (09:18)
[2025-02-10] MEDS ORDERED: ATROPINE SULFATE 0.1 MG/ML 10ML SYR IV PRN (09:18)
[2025-02-10] MEDS ORDERED: SODIUM CHLORIDE 0.9% 100 ML IV PRN (09:18)
[2025-02-10] MEDS ORDERED: fentaNYL citrate PF 100 MCG/2 ML VIAL IV PRN (09:18)
[2025-02-10] MEDS ORDERED: PROMETHAZINE HCL 6.25 MG in SODIUM CHLORIDE 0.9% 50 ML IV PRN (09:18)
[2025-02-10] MEDS ORDERED: ePHEDrine sulfate 50 MG/ML AMP IV PRN (09:18)
[2025-02-10] MEDS: ceFAZolin 2000MG 2,000 MG/15 ML SYR IV ONE (09:38)
[2025-02-10] MEDS ORDERED: PHENYLEPHRINE 100MCG/ML 5ML SYR IV ONE (09:54)
[2025-02-10] MEDS ORDERED: ONDANSETRON INJ 2 MG/ML 2 ML VIAL IV ONE (09:54)
[2025-02-10] MEDS ORDERED: fentaNYL citrate PF 100 MCG/2 ML VIAL IV ONE (09:54)
[2025-02-10] MEDS ORDERED: LIDOCAINE 2% 2 ML VIAL/AMP(20MG/ML) INFIL ONE (09:54)
[2025-02-10] MEDS ORDERED: PROPOFOL IV EMULSION 10 MG/ML 20 ML VIAL IV ONE (09:54)
[2025-02-10] MEDS ORDERED: ePHEDrine sulfate 50 MG/5 ML SYR IV ONE (09:54)
--- NOTE | 2025-02-10 10:47 | Operative Report ---
PG Post Operative Report Pre & Post Diagnosis Operation Date: 02/10/25 09:45 Pre-Op Diagnosis: Bilateral kidney stones. Left Ureteral Stone Post-Op Diagnosis: Bilateral kidney stones. Left Ureteral Stone I identified the patient and participated in the time-out.: Yes Procedure Operation Date: 02/10/25 09:45 Actual Procedures Cystoscopy with Bilateral Retrograde Pyelogram and Exchange of Stent Catheter Evacuation and irrigation of bladder Right Ureteroscopy, Laser Lithotripsy, Basket Extraction of the Stone Left Ureteroscopy, Laser Lithotripsy of ureteral and renal stones, Basket Extraction of the Stone - Guillermo Joshua DO Surgeon Guillermo Joshua, II, DO Insecticide Sprayer none Estimated Blood Loss 0 Findings Consistent with Post-Op Diagnosis No mass or tumor. No signs of clots or significant areas of bleeding within the renal pelvis bilaterally, the ureters, or within the bladder. Severe retention with large debris in the bladder. Greater than 1 L in bladder Left ureteral stone in proximal ureter/UPJ. Approx 4 additional lower pole stones. Stones destroyed larger fragments removed. Right renal stone mid pole. With small upper pole stone. Specimens Stone Right Renal Stone Fragments Left Ureter. Drains 7 Fr x 24 cm Bilateral 16 Fr Silicone Anesthesia Type General Complications none Disposition Disposition: Recovery Room Indications Patient with bothersome stones. Recent sepsis with PE. On blood thinners. Has worsening anemia while on the blood thinners with stents in position. Risks and benefits discussed at length. Description of Procedure Patient was consented and brought back to the operating room. Patient was placed under anesthesia in the supine position and moved to the dorsal lithotomy position. Patient was prepped and draped in the regular sterile fashion. A time out was completed identifying the correct patient and procedure. Patient had been typed and crossed for the procedure as she is on a heparin drip. This has been held the morning of the procedure. Will plan to restart afterwards. A 30degree Cystoscope was placed into the bladder and the entire bladder was examined. The UO's were identified. The bladder was found to be severely distended. There was a moderate amount of debris but no major blood clots or other issues in the base of the bladder. Extensive evacuation and clearing of the debris from the bladder was completed. There was no signs of bleeding. There is no sign of any major bleeding areas ulceration or clot material. The bladder was severely distended and had a large capacity. The stent on each side was grasped and partially removed a wire was then placed the stent was then fully removed with the wire was confirmed in good position in the renal pelvis The UO was cannulized with a catheter and a retrograde pyelogram was completed. A wire was then rplaced. This was completed on the right and then the left. Starting on the right, a ureteral access sheath and second safety wire was placed. The flexible ureteroscope was taken into the ureter. The entire ureter and renal pelvis were examined. The stones were identified. There was a larger stone in the midpole. A smaller stone was discovered in the upper pole. A laser fiber was selected and the stones were pulverized to dust and small fragments. The larger stone in the midpole was able to be grasped and taken with a basket and removed and taken down and sent for analysis. The entire area was once again examined. No residual large fragments or areas of concern were noted. The scope was slowly removed with the wire left in place. Contrast was placed through the scope for a pyelogram to assist in stent placement. The entire ureter was examined as the scope was slowly removed. No obstructions or other areas of concern were noted. With the wire in place, a 7 Fr Double J stent was placed. It was confirmed with fluoroscopy. Attention was then taken to the left side. A ureteral access sheath and second safety wire was placed. The flexible ureteroscope was taken into the ureter. The entire ureter and renal pelvis were examined. The stones were identified. There was a ureteral stone at the proximal ureter/UPJ this was the largest of the stones. A laser fiber was selected and the stones were pulverized to dust and small fragments. Larger fragments were grasped and removed and sent for analysis. The renal pelvis was then assessed. There was additional stones in the lower pole. No other stones were discovered within the kidney. The lower pole stones were then treated with the laser and fragments were grasped and removed. There was no major signs of bleeding or other issues. The entire area was once again examined. No residual large fragments or areas of concern were noted. The scope was slowly removed with the wire left in place. Contrast was placed through the scope for a pyelogram to assist in stent placement. The entire ureter was examined as the scope was slowly removed. No obstructions or other areas of concern were noted. With the wire in place, a 7 Fr Double J stent was placed. It was confirmed with fluoroscopy. With the stents in place, the bladder was emptied. The scope was removed. A 16 [place] silicone catheter was then placed and the bladder drained. Clear drainage was appreciated with clear yellow urine from the bladder. No sign of significant hematuria. The patient was cleaned, aroused from anesthesia, and transferred to the pacu in stable condition having tolerated the procedure well with no complications. I was present and participated in all aspects of the procedure. The patient will be monitored in the PACU until transferred. Will plan to monitor patient in the hospital. Will likely need to maintain catheter. Patient appeared to have developed significant retention issues and may be contributing ongoing issues. There was no signs of severe bleeding or other explanation for the worsening anemia while on blood thinners may need further workup with the hospitalist team. Will plan to proceed with the transfusion due to the significant drop in hemoglobin since starting her blood thinner and patient's complicated medical history with recent severe illness and now recent procedure. Will plan to restart heparin drip while on the floor. Will plan to likely work on stent removal in the coming weeks. Will likely need to maintain catheter for approximately 5 to 7 days to monitor output and await return to normal function. I attest to the content of the Intraoperative Record and any orders documented therein. Any exceptions are noted below.
--- NOTE | 2025-02-10 11:02 | Infectious Disease Progress Nt ---
Date of Service February 10, 2025 Assessment & Plan (1) Tatum tropicalis infection: (2) Ureteral stent present: (3) Bilateral kidney stones: (4) Bilateral pulmonary embolism: Plan 84yo F with h/o bl obstructing renal stones with hydronephrosis s/p bl ureteral stent with left laser stone destruction 09/2024, admission 11/23-11/1124 with septic shock 2/2 recurrent UTI (cx with Klebsiella, s/p augmentin x 14d) s/p bl stent exchange 11/23/24, ongoing stone burden and underwent bl stent exchange with right lithotripsy 01/13/25, bilateral TKA in 2020, right periprosthetic fracture around knee 09/2024 s/p right femur ORIF, 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 She had seen urology on 01/28 due to urinary symptoms and was sent home on cefuroxime, however symptoms persisted. On admission, she was febrile, hypotensive to 70-80s, satting well on RA. Initial labs with WBC 13.23, Cr 1.68, AST/ALT wnl. Lactate 1.3. Troponin negative. PCT 0.28. UA > 50 WC, 11-20 epithelial cells. MRSA screen neg. C diff neg. Flu/RSV neg. CXR with artifact vs early PNA on right. CTCAP with bl ureteral stents slightly migrated proximally, no hydronephrosis; multiple small bilateral renal calculi; moderate- sized wedge-shaped area of consolidation superior aspect of RLL, ddx including PNA and pulmonary infarction, suggest correlation with d dimer. She was started on pressors along with empiric antibiotics. Pressors stopped 01/31. She has been seen by urology with plans for stent exchange. UCx with C tropicalis and fluconazole started on 01/31. ID consulted 02/01 for assistance. S/p OR 02/01 and underwent bilateral ureteral stent exchange. Caspofungin started 02/01 due to prior h/o C tropicalis I to fluconazole, S to micafungin. Workup of wedge-shaped consolidation: TTE with normal LV, diastolic dysfunction, mild aortic root dilatation, mild AR, trace MR, no vegetations, interatrial shunt noted. Bilateral LE doppler with DVT in bl popliteal, posterior tibial, and peroneal veins. CTA chest with bilateral PE. She had completed 5d of CTX/Doxy for ?PNA prior to PE dx. S/p OR 02/10 and underwent bl stent exchange and bl lithotripsy with basket extraction of stones. Per urology, plan on stent removal in the coming weeks. Continue on fluconazole + caspofungin for C tropicalis UTI (based on prior culture sensitivities at [facility]). She is now s/p second stent exchange and stone extraction. We can complete 2 weeks of antifungals as planned. # UTI in setting of ureteral stents and renal calculi (R flank pain, dysuria) UCx C tropicalis s/p bl stent exchange 02/01, bl stent exchange + stone extraction 02/10 # Wedge-shaped area of consolidation in superior aspect of RLL f/w PE on CTA # Bilateral DVT # Shock off pressors # MALINA on CKD III - improved - f/u C tropicalis susceptibilities - continue fluconazole 200mg q24h (renally adjusted for CrCl <50) x 2 weeks (end 02/14) - continue caspofungin 50mg IV daily x 2 weeks (start 02/01, end 02/14) - monitor weekly CBC w diff, BMP, and LFTs while on fluconazole and IV antifungal - per urology, plan to remove stents in the coming weeks Will discontinue active follow up at this time. Please do not hesitate to reconsult the Infectious Diseases service as needed. Mireille Cheng MD [facility], Division of Infectious Diseases IDConnect: [phone] Admission and Anticipated Discharge Date Admission Date: January 29, 2025 Subjective This patient recommendation is based on a telemedicine consult request which was completed asynchronously through chart review and information provided by the primary physician. The patient was not seen or examined today. The evaluation is consultative in nature and all patient care and treatment decisions can either be accepted or rejected by the patient's primary hospital-based treating ph ysician using their own independent medical judgment for their patient. Time Spent Reviewing Chart: 31+ minutes Patient s/p urologic procedure today. Results & Data Vital Signs (Past 12 Hours) Vital Signs Temp Pulse Pulse Pulse Resp BP BP 02/10/25 10:55 36.4 C L 55 L 15 120/55 L 02/10/25 08:35 36.7 C 59 L 20 119/66 02/10/25 08:04 36.6 C 59 L 18 02/10/25 02:37 36.6 C 58 L 18 BP Pulse Ox O2 Del Method O2 Flow Rate 02/10/25 10:55 100 5 02/10/25 08:35 97 Room Air 02/10/25 08:04 114/70 99 Room Air 02/10/25 02:37 112/70 97 Room Air Laboratory Results Labs reviewed. Diagnostic Findings Imaging reviewed.
--- NOTE | 2025-02-10 11:21 | Anesthesiology Progress Note ---
Date of Service February 10, 2025 Anesthesia Post Procedure Vital Signs Vital Signs: Temp Pulse Pulse Pulse Resp BP BP 02/10/25 11:20 36.4 C L 60 18 02/10/25 11:10 36.3 C L 55 L 22 115/59 L 02/10/25 11:10 55 L 22 02/10/25 11:00 54 L 13 02/10/25 10:55 36.4 C L 55 L 15 120/55 L 02/10/25 10:50 36.4 C L 59 L 16 02/10/25 08:35 36.7 C 59 L 20 119/66 02/10/25 08:04 36.6 C 59 L 18 02/10/25 02:37 36.6 C 58 L 18 02/09/25 22:58 58 L 02/09/25 22:55 36.6 C 65 18 02/09/25 19:31 36.9 C 62 18 02/09/25 15:45 36.8 C 68 19 BP Pulse Ox O2 Del Method O2 Flow Rate 02/10/25 11:20 110/61 99 Room Air 02/10/25 11:10 99 02/10/25 11:10 115/59 L 99 Room Air 02/10/25 11:00 107/37 L 98 Room Air 02/10/25 10:55 100 5 02/10/25 10:50 106/53 L 100 Oxymask 5 02/10/25 08:35 97 Room Air 02/10/25 08:04 114/70 99 Room Air 02/10/25 02:37 112/70 97 Room Air 02/09/25 22:58 02/09/25 22:55 118/74 98 Room Air 02/09/25 19:31 104/68 98 Room Air 02/09/25 15:45 101/62 99 Room Air Transfer of Care Handoff Completed per policy Notes Mental Status: alert / awake / arousable and participated in evaluation Patient Amnestic to Procedure: Yes Nausea / Vomiting: adequately controlled Pain: adequately controlled Airway Patency, RR, SpO2: stable & adequate BP & HR: stable & adequate Hydration State: stable & adequate Anesthetic Complications: no major complications apparent
[2025-02-10] MEDS: DIATRIZOATE MEGLUMINE 30% 100ML VIAL INSTIL ONE (11:41)
[2025-02-10 15:11] LABS: Hematocrit (blood only) 35.8 % (37.0-47.0); Hemoglobin 10.7 g/dl (12.0-16.0)
[2025-02-10 15:17] LABS: ANTI-Xa, UFH(UnfractionatedHep < 0.10 IU/ml (0.3-0.7)
[2025-02-10] MEDS: APIXABAN 5 MG TABLET PO SCH (20:52)
[2025-02-11 07:19] LABS: Hematocrit (blood only) 33.7 % (37.0-47.0); Hemoglobin 10.1 g/dl (12.0-16.0); Mean Corpuscular Volume 93.4 fL (80.0-100.0); Mean Platelet Volume 9.9 fL (9.4-12.4); Platelet Count 229 K/uL (130-400); RDW Coefficient of Variation 21.1 % (11.5-14.5); RDW Standard Deviation 72.4 fL (36.4-46.3); Red Blood Count 3.61 M/uL (4.20-5.40)
[2025-02-11 07:41] LABS: Albumin Level 2.4 gm/dl (3.4-5.0); Bilirubin,Total 0.3 mg/dl (0.2-1.0); Calcium 7.4 mg/dl (8.6-10.3); Creatinine Clr Calc Pharmacy 30.7 ml/min; Magnesium 1.6 mg/dl (1.7-2.4); Phosphorus 3.4 mg/dl (2.5-4.9); Potassium 4.3 mmol/L (3.5-5.1); Total Protein 4.5 gm/dl (6.0-8.3)
[2025-02-11] MEDS: HYDROCORTISONE SOD 50 MG in SYRINGE 0 ML IV SCH (08:03)
[2025-02-11] MEDS: MAGNESIUM SULFATE / D5W 1 GM/100 ML BAG IV SCH (09:07)
--- NOTE | 2025-02-11 09:25 | Urology Progress Note ---
Date of Service February 11, 2025 Assessment & Plan (1) Bilateral kidney stones: (2) Tatum tropicalis infection: (3) Ureteral stent present: Plan: - Pt POD#1 s/p Cystoscopy with Bilateral Retrograde Pyelogram and Exchange of Stent Catheter; Evacuation and irrigation of bladder Right Ureteroscopy, Laser Lithotripsy, Basket Extraction of the Stone; Left Ureteroscopy, Laser Lithotripsy of ureteral and renal stones, Basket Extraction of the Stone - Doing well, progressing as expected - Afebrile, hemodynamically stable - Lab work reviewed - creatinine 1.15, WBC 9.4, hemoglobin improved to 10.1 (received 1 unit of PRBC yesterday) - Tolerating bilateral ureteral stent with minimal bother - Okay to d/c from perspective when medically stable - Continue with antifungals per ID - Recommend maintain Santillan catheter for 5-7 days - Recommend d/c with Tamsulosin, prn Pyridium, Oxybutynin and prn pain medication for stent management - Expected clinical course reviewed, all questions answered - Will arrange outpatient follow-up with our service for stent removal and ongoing management - will sign off, please contact our service with any additional questions or concerns Admission and Anticipated Discharge Date Admission Date: January 29, 2025 Subjective Patient seen and examined at bedside this morning. She is resting in bed, arouses easily to name. Subjectively doing well. Santillan patent and draining clear yellow urine with slight blood tinge. No fever or chills. Received 1 unit PRBCs yesterday. Hemoglobin 10.1 today. Review of Systems Constitutional: as per Subjective / HPI Genitourinary: as per Subjective / HPI Physical Exam Constitutional: well developed and well nourished; no acute distress Respiratory: normal respiratory effort; no respiratory distress and no labored breathing Gastrointestinal (Abdomen): Inspection/Auscultation: abdomen normal to inspection Musculoskeletal: Head/Neck/Chest: normocephalic Neurologic: moves all extremities and awake Psychiatric: Orientation: alert and oriented x 3 Genitourinary: Santillan patent and draining clear yellow urine with slight blood tinge Results & Data Vital Signs (Past 12 Hours) Vital Signs Temp Pulse Pulse Resp BP BP Pulse Ox 02/11/25 07:43 36.4 C L 75 18 139/75 99 02/11/25 07:18 61 02/11/25 03:54 36.5 C 77 18 119/71 98 02/10/25 23:20 57 L 02/10/25 22:56 36.8 C 59 L 18 130/57 L 98 O2 Del Method 02/11/25 07:43 Room Air 02/11/25 07:18 02/11/25 03:54 Room Air 02/10/25 23:20 02/10/25 22:56 Room Air PG Care Time/CCT Total # of Minutes Spent Total Time Spent with Patient: Total time spent is greater than 50% in coordination of care (as documented) at patient's floor/unit and/or counseling patient: Coding Level of Care Code 81580 SUB INP/OBS CARE 12/18MIN Diagnoses Bilateral kidney stones N20.0 Tatum tropicalis infection B37.9 Ureteral stent present Z96.0
--- NOTE | 2025-02-11 10:36 | Hospitalist Progress Note ---
Date of Service February 11, 2025 Assessment & Plan (1) Complicated urinary tract infection: (2) Anna tropicalis infection: (3) Right upper lobe pneumonia: (4) Metabolic acidosis: (5) Ureteral stent present: (6) Electrolyte abnormality: (7) Chronic renal failure (CRF), stage 3b: (8) Diarrhea due to drug: (9) Acute retention of urine: Plan 84-yo F with hx of hydronephrosis 2/2 to nephrolithiasis, ureteral stent placement last September 2024, exchanged January 13, 2025, presenting with Right lower back/flank pain. Septic shock Recurrent UTI in the setting of nephrolithiasis, ureteral stents Initially required ICU admission , and pressor support Off Levophed now S/p ureteral stent exchange by urology - 02/01/2025, 02/10 Follow-up urine culture and blood cultures History of recurrent Klebsiella UTI, most recent November 2024 Similar presentation back in November 2024 Urine cultx posit. for E coli and Anna tropicalis, repeat positive for anna tropicalis only ID consulted, appreicate recs -Pt is on fluconazole, caspofungin, end date 02/14 -completed ceftriaxone + doxycycline Poss. pneumonia on chest x-ray: Patient denies respiratory symptoms. BioFire - negative nasal MRSA - negative Improved Pulmonary Emboli DVT Pulmonary Infarcts Loculated Pleural Effusions CT chest No contrast - "IMPRESSION: Moderate-sized wedge-shaped area of conso lidation superior aspect right lower lobe. Differential diagnosis includes focal pneumonia and pulmonary infarction. Suggest correlation with d-dimer. Recommend follow-up chest CT in 3 months to make sure this completely resolves without underlying nodule." Echo obtained - No vegetation or mass. EF 55-60% Doppler noting PE in bilateral popliteal, posterior tibial and peroneal veins. 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 No acute distress HEENT: NC/AT CV: RRR Resp: Breath sounds clear bilaterally, no increased effort of breathing Abdomen: Soft, nontender Extremities: No edema in lower extremities bilaterally Results & Data Results & Data Vital Signs (Past 12 Hours) Vital Signs Temp Pulse Pulse Resp BP BP Pulse Ox 02/11/25 10:34 36.6 C 67 18 106/71 98 02/11/25 07:43 36.4 C L 75 18 139/75 99 02/11/25 07:18 61 02/11/25 03:54 36.5 C 77 18 119/71 98 02/10/25 23:20 57 L 02/10/25 22:56 36.8 C 59 L 18 130/57 L 98 O2 Del Method 02/11/25 10:34 Room Air 02/11/25 07:43 Room Air 02/11/25 07:18 02/11/25 03:54 Room Air 02/10/25 23:20 02/10/25 22:56 Room Air Diagnostic Findings Chest X-Ray 01/29/25 10:44 XR chest 1V portable CLINICAL HISTORY: Sepsis COMPARISON STUDY: 11/23/2024 FINDINGS: Heart size and pulmonary vasculature are normal. There is a possible small area of patchy opacity right mid to upper lung. No effusion, consolidation, or pneumothorax otherwise. IMPRESSION: Artifact versus early pneumonia on the right. ACT 112: Negative or not required by law. Electronically signed by: Santos Tapia M.D. 01/29/2025 11:16 AM Abdomen/Pelvis CT 01/29/25 11:[address] WITHOUT CONTRAST CT DOSE: 403.19 mGy.cm HISTORY: R flank pain, ureteral stent, incr pain, low BP TECHNIQUE: Multiaxial CT images of the abdomen and pelvis were performed without contrast. A dose lowering technique was utilized adhering to the principles of ALARA. COMPARISON STUDY: 11/23/2024 FINDINGS: ABDOMEN: Liver, gallbladder, spleen, pancreas, and adrenal glands have an unremarkable non-IV contrasted appearance. There are bilateral ureteral stents. They have migrated slightly proximally compared to the prior exam, but the distal pigtails remain within the urinary bladder. There is no hydronephrosis. There are multiple small bilateral renal calculi. No ureteral calculi seen. There are atherosclerotic calcifications. No abdominal aortic aneurysm. Pelvis: Urinary bladder is nondistended. No bowel inflammation or obstruction is seen. Stable small fat-containing midline low ventral hernia. No free fluid or free air. No enlarged adenopathy. Osseous structures: Stable hardware at the proximal femurs. There is lumbar degenerative disc disease. IMPRESSION: 1. No acute findings. 2. Bilateral ureteral stents have migrated slightly proximally compared to the prior exam but the distal pigtails remain within the urinary bladder and there is no hydronephrosis. 3. Otherwise as described. ACT 112: Negative or not required by law. The above report was generated using voice recognition software. It may contain grammatical, syntax or spelling errors. Electronically signed by: Santos Tapia M.D. 01/29/2025 12:[address] 01/29/25 13:16 CT chest diagnostic wo con CT DOSE: 283.84 mGy.cm CLINICAL HISTORY: r/o pneumonia. TECHNIQUE: Multiaxial CT images of the chest were performed without contrast. A dose lowering technique was utilized adhering to the principles of ALARA. COMPARISON STUDY: X-ray yesterday FINDINGS: There is a moderate-sized area of patchy consolidation with wedge- shaped morphology on the sagittal imaging superiorly at the right lower lobe. No other pulmonary consolidation or pleural effusion. No pneumothorax. No enlarged adenopathy. No pericardial effusion. There are coronary artery and aortic calcifications. There are mild thoracic spine degenerative changes. IMPRESSION: Moderate-sized wedge-shaped area of consolidation superior aspect right lower lobe. Differential diagnosis includes focal pneumonia and pulmonary infarction. Suggest correlation with d-dimer. Recommend follow-up chest CT in 3 months to make sure this completely resolves without underlying nodule. ACT 112: Positive. There are findings on this exam that require communication between the performing entity and the patient following Patient Test Result Information Act ([place] Act 112) guidelines. Electronically signed by: Santos Tapia M.D. 01/30/2025 10:34 AM Abdomen Fluoroscopy 02/01/25 00:00 FL KUB CLINICAL HISTORY: BILAT STENT EXCHANGE COMPARISON STUDY: None pertinent FLUOROSCOPY TIME: 10.6 seconds FLUOROSCOPY IMAGES: 2 EXPOSURE DOSE: 1.5 for mGy FINDINGS: Fluoroscopy provided IMPRESSION: See procedural report for evaluation based upon real-time observation ACT 112: Negative or not required by law. Electronically signed by: Suzy Guevara M.D. 02/01/2025 1:56 PM Venous Doppler Study 02/03/25 07:42 BILATERAL LOWER EXTREMITY VENOUS DOPPLER CLINICAL HISTORY: r/o dvt COMPARISON STUDY: No previous studies for comparison. TECHNIQUE: Sonography of the deep venous system of the bilateral lower extremities was performed. Compression and augmentation were evaluated. FINDINGS: The right common femoral and superficial femoral veins are patent. There is nonocclusive deep venous thrombus within the right popliteal, posterior tibial and peroneal veins. The left common femoral and superficial femoral veins are patent. There is nonocclusive thrombus within the left popliteal, posterior tibial and peroneal veins. IMPRESSION: Deep venous thrombus within the bilateral popliteal, posterior tibial and peroneal veins. ACT 112: Negative or not required by law. Electronically signed by: Redd Salcido M.D. 02/03/2025 9:52 AM Chest CTA 02/03/25 09:59 CT ANGIOGRAPHY OF THE CHEST, PULMONARY EMBOLUS PROTOCOL CLINICAL HISTORY: Shortness of breath. Evaluate for pulmonary embolus. COMPARISON STUDY: Chest CT January 30, 2025. TECHNIQUE: Following IV administration of 122 mL of Optiray, helical axial images of the chest were obtained utilizing the pulmonary embolus protocol. Maximal intensity projections and sagittal and coronal reformats were viewed on an independent 3D workstation. IV contrast was administered without complication. Automated exposure control was utilized for the study. A dose lowering technique was utilized adhering to the principles of ALARA. CT DOSE: 318.65 mGy.cm FINDINGS: There are numerous bilateral pulmonary emboli, including emboli within the distal right pulmonary artery. Note is made of additional lobar, segmental and subsegmental pulmonary emboli within the lungs. There is no evidence for right heart strain. A 5.8 x 3.4 cm subpleural wedge-shaped opacity within the superior segment of the right lower lobe is again noted. This represents a pulmonary infarct. A small to moderate loculated right pleural effusion has developed since prior CT. There is a trace pericardial effusion. Trace left pleural effusion is present. There is no pneumothorax. There is no thoracic lymphadenopathy. Trace perihepatic ascites is noted. Right hydronephrosis is partially imaged. Visualized portions of the colon are fluid- filled. IMPRESSION: 1. Numerous bilateral pulmonary emboli, as described above. No CT evidence for right heart strain. Findings will be called/faxed to the ordering provider at time of dictation. 2. Redemonstration of a 5.8 x 3.4 cm infarct within the superior segment the right lower lobe. 3. Interval a small to moderate-sized loculated right pleural effusion. 4. Trace pericardial effusion. ACT 112: Negative or not required by law. Electronically signed by: Redd Salcido M.D. 02/03/2025 1:06 PM Abdomen/Pelvis CT 02/09/25 09:11 CT OF THE ABDOMEN AND PELVIS WITHOUT CONTRAST CLINICAL HISTORY: Nephrolithiasis. COMPARISON STUDY: CT of the abdomen and pelvis February 01, 2025. KUB February 01, 2025. TECHNIQUE: Axial images of the abdomen and pelvis were obtained without IV contrast. Images were reviewed in the axial, sagittal, and coronal planes. Automated exposure control was utilized for the study. A dose lowering technique was utilized adhering to the principles of ALARA. FINDINGS: A small right pleural effusion has increased in size since prior exam. Body wall edema is present. No pneumatosis, free air or portal venous gas is identified. A trace pericardial effusion has slightly increased. Unenhanced images of the liver, spleen, adrenal glands and pancreas are unremarkable. There is no biliary or pancreatic ductal dilatation. There is no lymphadenopathy. Apparent rectal wall thickening is likely due to underdistention. There is no evidence for a bowel obstruction. The colon is fluid-filled. A small amount of gas within the bladder is likely related to recent instrumentation. The bladder is moderately distended. Bilateral ureteral stents are place. There are no ureteral calculi or fragments. Multiple left renal calculi measure up to 8 mm. Several right renal calculi measure up to 6 mm. Mild to moderate right hydronephrosis has decreased since CT of January 29, 2025. Mild left hydronephrosis is unchanged. Bilateral urothelial thickening is again noted. Bilateral femoral internal fixation hardware is incidentally noted. IMPRESSION: 1. Bilateral ureteral stents in place. Bilateral nephrolithiasis. No ureteral calculi or fragments. 2. Mild to moderate right hydronephrosis, mildly decreased since prior CT. No change in mild left hydronephrosis. Persistent bilateral urothelial thickening of the proximal ureters. 3. No bowel obstruction. Fluid-filled colon. This could indicate a diarrheal state. 4. Apparent rectal wall thickening, likely due to underdistention. 5. Increase in a small right pleural effusion. Anasarca. ACT 112: Negative or not required by law. Electronically signed by: Redd Salcido M.D. 02/09/2025 11:09 AM
--- NOTE | 2025-02-11 17:41 | Pulmonary Consultation ---
Date of Consultation February 11, 2025 Assessment & Plan (1) Bilateral pulmonary embolism: (2) Abnormal CT scan, chest: (3) Pleural effusion: (4) Pulmonary infarct: Plan CTA chest 02/03/2025 personally reviewed: Consolidative changes in the superior segment of the right lower lobe likely representing evolving infarct Pulmonary emboli appreciated bilaterally in the right lower as well as left lower subsegmental arteries right upper No significant mediastinal lymphadenopathy 2D echo 02/02/2025: EF 55-60%, grade 1 diastolic dysfunction, RV normal in size and function -- Acute DVT with pulmonary emboli DVT appreciated 02/03/2025 within bilateral popliteal and posterior tibial and peroneal veins -- Pleural effusion Right-sided Likely reactive to pulmonary infarct Plan: Patient is +17 L since coming to the hospital Recommend to aggressive diuresis to keep the patient -1.5 L on a daily basis Would avoid thoracentesis right now given that she is on high dose of eliquis right now. Continue with incentive spirometry Case was discussed with RN at bedside Please note the above document was generated using voice recognition software. It may contain grammatical, syntax or spelling errors.Any formal questions or concerns about the content, text or information contained within the body of this dictation should be directly addressed to the provider for clarification. History of Present Illness Attending Physician: Pippa Bermudez MD History of Present Illness 84-year-old female who was admitted to the hospital for septic shock from urinary source She was admitted initially in the ICU and then subsequently downgraded Past medical history: Right-sided breast cancer, neuropathy with history of Guillian Sandra syndrome Pulmonary consulted for abnormal chest CT At the time of examination patient was not in any respiratory distress She was sitting comfortably, saturating well on room air Denied any chest pain, no shortness of breath Denied any cough or hemoptysis Has been diuresing well via the Santillan catheter Denied any nausea or vomiting No abdominal pain No unusual headache or blurry vision Social history: Lifetime non-smoker Allergies Allergy/AdvReac Type Severity Reaction Status Date / Time influenza virus vaccine, Allergy Severe Gillean Verified 01/29/25 12:51 specific Merrillan Syndrome Sulfa (Sulfonamide Allergy Unknown Unknown Verified 01/29/25 12:51 Antibiotics) cephalexin AdvReac Mild Nausea Verified 01/29/25 12:51 Home Medications Medication Instructions Recorded Confirmed Type ferrous sulfate 325 mg (65 mg 325 mg PO QDL 07/17/18 01/29/25 History iron) tablet (iron) raloxifene 60 mg tablet 60 mg PO QAM 01/20/20 01/29/25 History cyanocobalamin (vitamin B-12) 500 500 mcg PO QAM 12/20/20 01/29/25 History mcg tablet (Vitamin B-12) cranberry extract 500 mg capsule 500 mg PO QAM 05/08/21 01/29/25 History (Cranberry Concentrate) potassium chloride 10 mEq 40 meq PO BIDWMEAL 04/09/22 01/29/25 History tablet,extended release acetaminophen 500 mg tablet 1,000 mg PO Q8 PRN Pain 02/05/24 01/29/25 History loperamide 2 mg capsule 2 mg PO Q6H PRN loose stool #30 12/04/24 01/29/25 Rx caps Bifidobacterium infantis 4 mg 4 mg PO QDL 01/04/25 01/29/25 History capsule (Align (B.infantis)) cholecalciferol (vitamin D3) 25 25 mcg PO QDL 01/29/25 01/29/25 History mcg (1,000 unit) tablet (Vitamin D3) mirtazapine 7.5 mg tablet 7.5 mg PO HS 01/29/25 01/29/25 History Patient History Medical History Depression Hypotension States Metoprolol on hold Hx of sepsis Sepsis/MALINA r/t UTI, hospitalized at [facility] 10/2024 History of colitis Neuropathy involving both lower extremities Hydronephrosis concurrent with and due to calculi of kidney and ureter History of seizure Single episode s/p benign brain tumor excision (1998) No issues since History of right breast cancer (2000) s/p radiation Kidney stones Anemia Chronic 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 Osteoarthritis 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 Surgical History History of postoperative nausea and vomiting History of open reduction and internal fixation (ORIF) procedure right femur fx - C - 09/2024 Hx of lithotripsy (01/18/21) S/P cystoscopy with ureteral stent placement Multiple History of tooth extraction History of colonoscopy History of appendectomy History of total knee replacement R/L (2020) History of hip surgery right and left due to falling History of brain surgery (1998) 1998; benign tumor excision Hx of hysterectomy Hx of lumpectomy Right breast- had xrt Family History Mother Macular degeneration Father Kidney stone Diabetes Social History Smoking Status: Never smoker Tobacco Type: Declines Second Hand Exposure: No; Do You Dip or Chew Tobacco: No; Hx Alcohol Use: No Hx Substance Use: No Preferred Language: Tamazight Communication Ability: Effective Visual Impairment: No Limitations Pinion Staker Required: No Beliefs That Will Affect Care: None marital status: / Current Living Situation: Alone Current Living Situation Comment: son Feels Safe at Home: Yes Assistive Devices: None Review of Systems 2 Review of Systems: All systems reviewed & are unremarkable except as noted in HPI & below Physical Exam 2 Physical Exam: Constitutional: No acute distress HEENT: EOMI, PERRLA Respiratory system: Decreased air entry bilaterally, no wheeze, no rhonchi, mild crackles bilateral lower lobes CVS: S1-S2 positive, no murmurs or gallops Abdomen: Soft, nontender, nondistended, positive bowel sounds x4 Extremities: +2 pulses bilaterally radialis/ dorsalis pedis, no cyanosis, +1 pitting edema bilateral lower extremity Neuro: Awake alert oriented x3 Psych: Normal mood and affect G/U: Positive Santillan Skin: no rashes, warm and dry Lymphatic: no cervical or axillary lymphadenopathy Results & Data Results & Data Vital Signs (Past 12 Hours) Vital Signs Temp Pulse Pulse Resp BP Pulse Ox O2 Del Method 02/11/25 16:17 36.8 C 62 20 107/68 98 Nasal Cannula 02/11/25 14:54 97 H 02/11/25 10:34 36.6 C 67 18 106/71 98 Room Air 02/11/25 07:43 36.4 C L 75 18 139/75 99 Room Air 02/11/25 07:18 61 O2 Flow Rate 02/11/25 16:17 2 02/11/25 14:54 02/11/25 10:34 02/11/25 07:43 02/11/25 07:18 Laboratory Results 02/11/25 06:06 02/11/25 06:06 PG Care Time/CCT Total # of Minutes Spent Total Time Spent with Patient: Total time spent is greater than 50% in coordination of care (as documented) at patient's floor/unit and/or counseling patient: Coding Level of Care Code 73170 INT INP/OBS CARE 3/75MIN Diagnoses Bilateral pulmonary embolism I26.[address] scan, chest R93.89 Pleural effusion J90 Pulmonary infarct I26.99
[2025-02-11] MEDS ORDERED: FUROSEMIDE INJ 20 MG/2 ML VIAL IV ONE (18:22)
[2025-02-11] MEDS: FUROSEMIDE INJ 20 MG/2 ML VIAL IV STA (20:50)
[2025-02-12 06:34] LABS: Hematocrit (blood only) 33.7 % (37.0-47.0); Hemoglobin 10.8 g/dl (12.0-16.0); Mean Corpuscular Hemoglobin 29.1 pg (25.0-34.0); Mean Corpuscular Volume 90.8 fL (80.0-100.0); Mean Platelet Volume 9.4 fL (9.4-12.4); Platelet Count 263 K/uL (130-400); RDW Coefficient of Variation 20.9 % (11.5-14.5); RDW Standard Deviation 69.5 fL (36.4-46.3); Red Blood Count 3.71 M/uL (4.20-5.40); White Blood Count 9.36 K/ul (4.8-10.8)
[2025-02-12 07:21] LABS: BUN Creatinine Ratio 5.8 (10-20); Calcium 7.7 mg/dl (8.6-10.3); Creatinine Clr Calc Pharmacy 29.4 ml/min; Potassium 4.2 mmol/L (3.5-5.1)
--- NOTE | 2025-02-12 07:30 | Pulmonology Progress Note ---
Date of Service February 12, 2025 Assessment & Plan (1) Bilateral pulmonary embolism: (2) Abnormal CT scan, chest: (3) Pleural effusion: (4) Pulmonary infarct: Plan CTA chest 02/03/2025 personally reviewed: Consolidative changes in the superior segment of the right lower lobe likely representing evolving infarct Pulmonary emboli appreciated bilaterally in the right lower as well as left lower subsegmental arteries right upper No significant mediastinal lymphadenopathy 2D echo 02/02/2025: EF 55-60%, grade 1 diastolic dysfunction, RV normal in size and function -- Acute DVT with pulmonary emboli DVT appreciated 02/03/2025 within bilateral popliteal and posterior tibial and peroneal veins -- Pleural effusion Right-sided Likely reactive to pulmonary infarct Plan: In/out: -1.4 L, +15.5 L since coming to the hospital Dose of 20 mg of Lasix today Recommend to aggressive diuresis to keep the patient -1.5 L on a daily basis Continue with incentive spirometry Case was discussed with RN at bedside Please note the above document was generated using voice recognition software. It may contain grammatical, syntax or spelling errors.Any formal questions or concerns about the content, text or information contained within the body of this dictation should be directly addressed to the provider for clarification. Admission and Anticipated Discharge Date Admission Date: January 29, 2025 Subjective Patient seen and examined at bedside. No acute distress, no adverse events overnight She was saturating 97-98% on room air Denied any respiratory distress Fair appetite, no nausea vomiting No headache or blurry vision Review of Systems 2 Review of Systems: All systems reviewed & are unremarkable except as noted in Subjective Physical Exam 2 Physical Exam: Constitutional: No acute distress HEENT: EOMI, PERRLA Respiratory system: Good air entry bilaterally, no wheeze, no rhonchi, mild crackles bilateral lower lobes CVS: S1-S2 positive, no murmurs or gallops Abdomen: Soft, nontender, nondistended, positive bowel sounds x4 Extremities: +2 pulses bilaterally radialis/ dorsalis pedis, no cyanosis, +1 pitting edema bilateral lower extremity Neuro: Awake alert oriented x3 Psych: Normal mood and affect G/U: Positive Santillan Skin: no rashes, warm and dry Lymphatic: no cervical or axillary lymphadenopathy Results & Data Results & Data Vital Signs (Past 12 Hours) Vital Signs Temp Pulse Pulse Pulse Resp BP BP 02/12/25 07:11 37.0 C 82 19 110/65 02/12/25 07:09 71 02/12/25 04:19 36.8 C 88 18 111/76 02/11/25 23:40 72 02/11/25 22:23 36.8 C 99 H 18 118/72 02/11/25 20:07 36.9 C 72 17 111/68 Pulse Ox O2 Del Method 02/12/25 07:11 95 Room Air 02/12/25 07:09 02/12/25 04:19 96 Room Air 02/11/25 23:40 02/11/25 22:23 97 Room Air 02/11/25 20:07 98 Room Air Laboratory Results 02/12/25 06:18 02/12/25 06:18 PG Care Time/CCT Total # of Minutes Spent Total Time Spent with Patient: Total time spent is greater than 50% in coordination of care (as documented) at patient's floor/unit and/or counseling patient: Coding Level of Care Code 45924 SUB INP/OBS CARE 3/50MIN Diagnoses Bilateral pulmonary embolism I26.[address] scan, chest R93.89 Pleural effusion J90 Pulmonary infarct I26.99
[2025-02-12] MEDS: CYANOCOBALAMIN (B-12) 500 MCG TABLET PO SCH (08:09)
[2025-02-12] MEDS: FUROSEMIDE INJ 20 MG/2 ML VIAL IV ONE (11:17)
[2025-02-12] MEDS: FERROUS SULFATE 325 MG TAB PO SCH (11:17)
--- NOTE | 2025-02-12 13:42 | Hospitalist Progress Note ---
Date of Service February 12, 2025 Assessment & Plan (1) Complicated urinary tract infection: (2) Tatum tropicalis infection: (3) Right upper lobe pneumonia: (4) Metabolic acidosis: (5) Ureteral stent present: (6) Electrolyte abnormality: (7) Chronic renal failure (CRF), stage 3b: (8) Diarrhea due to drug: (9) Acute retention of urine: Plan 84-yo F with hx of hydronephrosis 2/2 to nephrolithiasis, ureteral stent placement last September 2024, exchanged January 13, 2025, presenting with Right lower back/flank pain. Septic shock Recurrent UTI in the setting of nephrolithiasis, ureteral stents Initially required ICU admission , and pressor support Off Levophed now S/p ureteral stent exchange by urology - 02/01/2025, 02/10 Follow-up urine culture and blood cultures History of recurrent Klebsiella UTI, most recent November 2024 Similar presentation back in November 2024 Urine cultx posit. for E coli and Tatum tropicalis, repeat positive for tatum tropicalis only ID consulted, appreicate recs -Pt is on fluconazole, caspofungin, end date 02/14 -completed ceftriaxone + doxycycline Poss. pneumonia on chest x-ray: Patient denies respiratory symptoms. BioFire - negative nasal MRSA - negative Improved Pulmonary Emboli DVT Pulmonary Infarcts Loculated Pleural Effusions CT chest No contrast - "IMPRESSION: Moderate-sized wedge-shaped area of conso lidation superior aspect right lower lobe. Differential diagnosis includes focal pneumonia and pulmonary infarction. Suggest correlation with d-dimer. Recommend follow-up chest CT in 3 months to make sure this completely resolves without underlying nodule." Echo obtained - No vegetation or mass. EF 55-60% Doppler noting PE in bilateral popliteal, posterior tibial and peroneal veins. IV heparin,switched to Eliquis on DC Pulmonary consulted, for progressing loculated pleural effusion, pulm infarcts -pt being diuresed Pt with no increased oxygen requirement Continue to monitor Acute kidney injury Secondary to above received IVF, required pressors Monitor renal function daily Nephrology consulted and following closely Cr now improved Continue to monitor Hypomagnesemia replete as needed Other chronic medical problems Paroxysmal atrial tachycardia- hold metoprolol for now in light of hypotension Prostatic right knee joint periprosthetic fracture Status post ORIF at 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 Would like to go home Daughter called and updated. Agreeable to the plan Review of Systems Review of Systems: All systems reviewed & are unremarkable except as noted in Subjective Physical Exam Physical Exam: General: Alert, oriented. No acute distress HEENT: NC/AT CV: RRR Resp: Breath sounds clear bilaterally, no increased effort of breathing Abdomen: Soft, nontender Extremities: No edema in lower extremities bilaterally Results & Data Results & Data Vital Signs (Past 12 Hours) Vital Signs Temp Pulse Pulse Resp BP BP Pulse Ox 02/12/25 11:10 37.0 C 93 H 19 100/66 98 02/12/25 08:25 02/12/25 07:11 37.0 C 82 19 110/65 95 02/12/25 07:09 71 02/12/25 04:19 36.8 C 88 18 111/76 96 O2 Del Method 02/12/25 11:10 Room Air 02/12/25 08:25 Room Air 02/12/25 07:11 Room Air 02/12/25 07:09 02/12/25 04:19 Room Air
[2025-02-13 06:35] LABS: Basophils # (auto) 0.01 K/uL (0.00-0.20); Basophils % (auto) 0.1 %; Eosinophils # (auto) 0.03 K/uL (0.00-0.50); Eosinophils % (auto) 0.4 %; Hematocrit (blood only) 34.1 % (37.0-47.0); Hemoglobin 10.9 g/dl (12.0-16.0); Immature Granulocytes # (auto) 0.11 K/uL (0.01-0.20); Immature Granulocytes % (auto) 1.5 %; Lymphocytes # (auto) 0.87 K/uL (1.20-3.40); Lymphocytes % (auto) 11.6 %; Mean Corpuscular Hemoglobin 29.1 pg (25.0-34.0); Mean Corpuscular Volume 91.2 fL (80.0-100.0); Mean Platelet Volume 9.4 fL (9.4-12.4); Monocytes % (auto) 10.6 %; Neutrophils # (auto) 5.71 K/uL (1.40-6.50); Neutrophils % (auto) 75.8 %; Platelet Count 249 K/uL (130-400); RDW Coefficient of Variation 20.4 % (11.5-14.5); RDW Standard Deviation 67.7 fL (36.4-46.3); Red Blood Count 3.74 M/uL (4.20-5.40); White Blood Count 7.53 K/ul (4.8-10.8)
[2025-02-13 06:54] LABS: Anisocytosis Present; Polychromasia 1+
[2025-02-13 07:02] LABS: Albumin Globulin Ratio 1.2 (0.9-2); Albumin Level 2.7 gm/dl (3.4-5.0); BUN Creatinine Ratio 6.4 (10-20); Bilirubin,Total 0.4 mg/dl (0.2-1.0); Calcium 7.7 mg/dl (8.6-10.3); Creatinine Clr Calc Pharmacy 25.9 ml/min; Globulin 2.3 gm/dl (2.5-4.0); Magnesium 1.7 mg/dl (1.7-2.4); Phosphorus 3.1 mg/dl (2.5-4.9); Potassium 4.4 mmol/L (3.5-5.1)
--- NOTE | 2025-02-13 08:04 | XRay Report ---
EXAM: XR chest 1V portable CLINICAL HISTORY: Follow up scan. TECHNIQUE: An X-ray image of the chest is obtained in AP projection. COMPARISON: 01/29/2025 CR. FINDINGS: The patient is rotated during exposure. Pulmonary Parenchyma: Radio-opaque haziness is seen in the right upper and mid zones. No evidence of pleural effusion or pleural thickening. Heart and Mediastinum: Heart size and shape are normal. No mediastinal widening or masses. The right hilum appears prominent, possibly due to rotation Bony Thorax: Bony thorax appears intact without fractures or deformities. Degenerative changes are seen in the visualized skeleton. Soft Tissues: Soft tissues overlying the chest wall are unremarkable. IMPRESSION: 1. Radio-opaque haziness is seen in the right upper and mid zones, more apparent in the current study, could be infectious patches among other differential, correlation with clinical data and follow-up (including CT chest study are advised) if clinically needed. 2. The right hilum appears prominent, possibly due to rotation. Electronically signed by Kilo Oseguera 02-13-2025 08:03 AM
--- NOTE | 2025-02-13 09:57 | Urology Progress Note ---
Date of Service February 13, 2025 Assessment & Plan (1) Bilateral kidney stones: (2) Tatum tropicalis infection: (3) Ureteral stent present: Plan: Pt POD#3 s/p Cystoscopy with Bilateral Retrograde Pyelogram and Exchange of Stent Catheter; Evacuation and irrigation of bladder Right Ureteroscopy, Laser Lithotripsy, Basket Extraction of the Stone; Left Ureteroscopy, Laser Lithotripsy of ureteral and renal stones, Basket Extraction of the Stone Patient with long complicated history of severe stone disease with multiple interventions. Patient had stents in position with residual stones bilaterally. Patient had developed severe fungal infection with multi organism infection. Has been on broad-spectrum acromial treatments. Closely by the end infectious disease. Had recommended full course of treatment for infection of the bladder with indwelling stents. Had undergone stent exchange approximately week and a half ago. Patient has subsequently now undergone further stone treatment while on antifungal therapy. Patient tolerated procedure without major issue. Continues to improve. Yesterday had significant issue with catheter and poor drainage. Recommended repositioning and irrigation and this drastically improved drainage. Since then has not had leakage or other issues around catheter. Patient overall feels that she is improving. She feels her strength is coming back. On evaluation urine appears to be clear without major issue. Exam findings appear to be stable. Labs and vitals have all improved creatinine is down to 1.25 today. White count was 7.53. Reviewed extensively options moving forward. Patient had also been diagnosed with PE and is on anticoagulation. Will need to coordinate this with the hospitalist team and her PCP for outpatient management and monitoring. Developed during acute illness. Will plan to continue to monitor. Will plan repeat imaging today to confirm resolution of stone disease. Extensive treatment on the left side due to larger stone burden with complete fracturing and majority of stone within the left kidney. The right kidney was cleared of all remaining stone that was visible on ureteroscopy. The patient continues to improve can likely consider stent removal in the near future. Will need to coordinate with patient as outpatient. Admission and Anticipated Discharge Date Admission Date: January 29, 2025 Subjective Postop from stone treatment with stent exchange for obstruction issues with complicated stone history and recent severe fungal infection. Patient has been tolerating well. Has noticed some frequency and urgency. Has not had severe pain in the back and flank. Does have catheter in place. Last evening patient had issues with obstruction of catheter and leakage around catheter. On repositioning and irrigation the catheter did immediately start draining better. Since then has not had major issue. Does have occasional burning and irritation. No severe episodes or major changes. No new nausea or vomiting. Had tolerated anesthesia without major problems Review of Systems Review of Systems: All systems reviewed & are unremarkable except as noted in HPI & below Physical Exam Physical Exam: General: Alert in no acute distress. HEENT: Normocephalic Atraumatic. Inspection normal. Cranial Nerves 2-12 Grossly intact. Normal inspection of face. Normal inspection of neck. Psychologic: Normal affect. Respiratory: Nonlabored. No use of accessory muscles. No tachypnea or dyspnea. Cardiovascular: No tachycardia Skin: Peabody and Dry. No rashes or visible lesions. Extremities/Lymphatics: No edema Abdomen: Soft Non-distended. No rebound or guarding. : Santillan catheter in place draining clear yellow urine Results & Data Vital Signs (Past 12 Hours) Vital Signs Temp Pulse Pulse Resp BP Pulse Ox O2 Del Method 02/13/25 08:15 Room Air 02/13/25 08:14 37.3 C 103 H 19 101/68 95 Room Air 02/13/25 03:23 37.4 C 91 H 18 95/61 L 96 Room Air 02/13/25 02:51 80 02/12/25 23:53 37.6 C H 94 H 18 108/73 97 Room Air PG Care Time/CCT Total # of Minutes Spent Total Time Spent with Patient: Total time spent is greater than 50% in coordination of care (as documented) at patient's floor/unit and/or counseling patient: Coding Level of Care Code 46036 SUB INP/OBS CARE 3/50MIN Diagnoses Bilateral kidney stones N20.0 Tatum tropicalis infection B37.9 Ureteral stent present Z96.0
--- NOTE | 2025-02-13 10:52 | Hospitalist Progress Note ---
Date of Service February 13, 2025 Assessment & Plan (1) Complicated urinary tract infection: (2) Attum tropicalis infection: (3) Right upper lobe pneumonia: (4) Metabolic acidosis: (5) Ureteral stent present: (6) Electrolyte abnormality: (7) Chronic renal failure (CRF), stage 3b: (8) Diarrhea due to drug: (9) Acute retention of urine: Plan 84-yo F with hx of hydronephrosis 2/2 to nephrolithiasis, ureteral stent placement last September 2024, exchanged January 13, 2025, presenting with Right lower back/flank pain. Septic shock Recurrent UTI in the setting of nephrolithiasis, ureteral stents Initially required ICU admission , and pressor support Off Levophed now S/p ureteral stent exchange by urology - 02/01/2025, 02/10 Follow-up urine culture and blood cultures History of recurrent Klebsiella UTI, most recent November 2024 Similar presentation back in November 2024 Urine cultx posit. for E coli and Tatum tropicalis, repeat positive for tatum tropicalis only ID consulted, appreicate recs -Pt is on fluconazole, caspofungin, end date 02/14 -completed ceftriaxone + doxycycline Poss. pneumonia on chest x-ray: Patient denies respiratory symptoms. BioFire - negative nasal MRSA - negative Improving Pulmonary Emboli DVT Pulmonary Infarcts Loculated Pleural Effusions CT chest No contrast - "IMPRESSION: Moderate-sized wedge-shaped area of conso lidation superior aspect right lower lobe. Differential diagnosis includes focal pneumonia and pulmonary infarction. Suggest correlation with d-dimer. Recommend follow-up chest CT in 3 months to make sure this completely resolves without underlying nodule." Echo obtained - No vegetation or mass. EF 55-60% Doppler noting PE in bilateral popliteal, posterior tibial and peroneal veins. IV heparin,switched to Eliquis on DC Pulmonary consulted, for progressing loculated pleural effusion, pulm infarcts -pt being diuresed Pt with no increased oxygen requirement Continue to monitor 02/13- pt with tachycardia and hypotension. EKG with sinus tach. Likely in the setting of diuresis. Given 3 boluses of IV albumin, started on midodrine 2.5mg TID. H/H stable, continue Eliquis at this time. Pt asymptomatic. Follow repeat cultures. 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 No acute distress HEENT: NC/AT CV: RRR Resp: Breath sounds clear bilaterally, no increased effort of breathing Abdomen: Soft, nontender Extremities: No edema in lower extremities bilaterally Results & Data Results & Data Vital Signs (Past 12 Hours) Vital Signs Temp Pulse Pulse Resp BP Pulse Ox O2 Del Method 02/13/25 08:15 Room Air 02/13/25 08:14 37.3 C 103 H 19 101/68 95 Room Air 02/13/25 03:23 37.4 C 91 H 18 95/61 L 96 Room Air 02/13/25 02:51 80 02/12/25 23:53 37.6 C H 94 H 18 108/73 97 Room Air
--- NOTE | 2025-02-13 11:11 | CT Scan Report ---
CT OF THE ABDOMEN AND PELVIS WITHOUT CONTRAST CLINICAL HISTORY: Stones, Stents COMPARISON STUDY: CT of the abdomen and pelvis February 09, 2025. TECHNIQUE: Axial images of the abdomen and pelvis were obtained without IV contrast. Images were revi ewed in the axial, sagittal, and coronal planes. Automated exposure control was utilized for the sky dy. A dose lowering technique was utilized adhering to the principles of ALARA. FINDINGS: Trace pericardial effusion is unchanged. The right pleural effusion on CT of February 09, 2025 has resolved. No pneumatosis, free air or portal venous gas is present. Bilateral ureteral stents ar e well positioned. Right hydronephrosis has improved. There is mild dilatation of the left upper pole calyces. Otherwise, left collecting system dilatation has resolved. Bilateral urothelial thickening is again noted. There are no ureteral calculi or fragments. A Santillan balloon and gas within the bladde r are noted. Bilateral renal calculus burden has decreased. Multiple left renal calculi measure up to 6 mm. There are several small right renal calculi. Unenhanced images of the liver, spleen, adrenal g lands and pancreas are unremarkable. As before, the colon and rectum are fluid-filled. There is no ev idence for a bowel obstruction. No lymphadenopathy. No fluid collections are present. Body wall edema has improved. IMPRESSION: 1. Well-positioned bilateral ureteral stents. Resolution of right hydronephrosis with significant imp rovement in left collecting system dilatation. 2. No ureteral calculi or fragments. Interval decrease in bilateral renal calculus burden. 3. Persistent bilateral urothelial thickening. 4. Interval improvement in anasarca. Resolution of a right pleural effusion. 5. Fluid-filled colon and rectum, similar to prior exam. No evidence for a bowel obstruction. ACT 112: Negative or not required by law. Electronically signed by: Redd Salcido M.D. 02/13/2025 11:08 AM
[2025-02-13] MEDS: ALBUMIN 5% 250 ML IV SCH (11:31)
--- NOTE | 2025-02-13 12:19 | Pulmonology Progress Note ---
Date of Service February 13, 2025 Assessment & Plan (1) Bilateral pulmonary embolism: (2) Abnormal CT scan, chest: (3) Pleural effusion: (4) Pulmonary infarct: Plan CTA chest 02/03/2025 personally reviewed: Consolidative changes in the superior segment of the right lower lobe likely representing evolving infarct Pulmonary emboli appreciated bilaterally in the right lower as well as left lower subsegmental arteries right upper No significant mediastinal lymphadenopathy 2D echo 02/02/2025: EF 55-60%, grade 1 diastolic dysfunction, RV normal in size and function -- Acute DVT with pulmonary emboli DVT appreciated 02/03/2025 within bilateral popliteal and posterior tibial and peroneal veins -- Pleural effusion Right-sided Likely reactive to pulmonary infarct Plan: In/out: -1.8 L, +14 L since coming to the hospital Chest x-ray from today shows that the images rotated significantly to the right, no clear pulmonary infiltrate appreciated. Patient having low-grade fever and blood pressure is on the softer side Low-grade fever could be from pulmonary infarct She did get Lasix yesterday 20 mg and put out 1.8 L. Okay to give 250 mL of albumin 5% especially with the little bump in creatinine Would recommend blood cultures to be done including fungal cultures Continue with incentive spirometry Case was discussed with RN at bedside as well as primary team No further recommendation from pulmonary perspective, will sign off Please call directly with any questions Please note the above document was generated using voice recognition software. It may contain grammatical, syntax or spelling errors.Any formal questions or concerns about the content, text or information contained within the body of this dictation should be directly addressed to the provider for clarification. Admission and Anticipated Discharge Date Admission Date: January 29, 2025 Subjective Patient seen and examined at bedside. No acute distress, no adverse events overnight Tmax 37.5 Denies any abdominal pain, no nausea or vomiting Was saturating 98% on room air, was a little tachycardic at 110 No chest pain Review of Systems 2 Review of Systems: All systems reviewed & are unremarkable except as noted in Subjective Physical Exam 2 Physical Exam: Constitutional: No acute distress HEENT: EOMI, PERRLA Respiratory system: Good air entry bilaterally, no wheeze, no rhonchi, minimal crackles bilateral lower lobes CVS: S1-S2 positive, no murmurs or gallops, tachycardia Abdomen: Soft, nontender, nondistended, positive bowel sounds x4 Extremities: +2 pulses bilaterally radialis/ dorsalis pedis, no cyanosis, +1 pitting edema bilateral lower extremity Neuro: Awake alert oriented x3 Psych: Normal mood and affect G/U: Positive Santillan Skin: no rashes, warm and dry Lymphatic: no cervical or axillary lymphadenopathy Results & Data Results & Data Vital Signs (Past 12 Hours) Vital Signs Temp Pulse Pulse Pulse Resp BP Pulse Ox 02/13/25 10:58 37.8 C H 106 H 18 95/65 L 94 02/13/25 08:15 02/13/25 08:14 37.3 C 103 H 19 101/68 95 02/13/25 07:00 80 02/13/25 03:23 37.4 C 91 H 18 95/61 L 96 02/13/25 02:51 80 O2 Del Method 02/13/25 10:58 Room Air 02/13/25 08:15 Room Air 02/13/25 08:14 Room Air 02/13/25 07:00 02/13/25 03:23 Room Air 02/13/25 02:51 Laboratory Results 02/13/25 06:14 02/13/25 06:14 PG Care Time/CCT Total # of Minutes Spent Total Time Spent with Patient: Total time spent is greater than 50% in coordination of care (as documented) at patient's floor/unit and/or counseling patient: Coding Level of Care Code 58299 SUB INP/OBS CARE 3/50MIN Diagnoses Bilateral pulmonary embolism I26.[address] scan, chest R93.89 Pleural effusion J90 Pulmonary infarct I26.99
--- NOTE | 2025-02-13 12:33 | Electrocardiogram Report ---
Test Reason : Blood Pressure : */* mmHG Vent. Rate : 124 BPM Atrial Rate : 124 BPM P-R Int : 168 ms QRS Dur : 62 ms QT Int : 274 ms P-R-T Axes : 70 -3 80 degrees QTcB Int : 393 ms Sinus tachycardia Nonspecific ST abnormality Anterolateral leads Abnormal ECG When compared with ECG of 02-Feb-2025 05:59, Sinus rhythm has replaced ectopic atrial rhythm Vent. rate has increased by 66 bpm Non-specific change in ST segment in Anterolateral leads Confirmed by Renato Aquino ([id number]) on 02/13/2025 12:33:04 PM Referred By: REFERRED SELF Confirmed By: Renato Aquino
[2025-02-13] MEDS: CASPOFUNGIN 50 MG in SODIUM CHLORIDE 0.9% 250 ML IV SCH (13:05)
[2025-02-13] MEDS: ALBUMIN 5% 250 ML IV ONE (17:43)
[2025-02-14 07:09] LABS: Eosinophils # (auto) 0.02 K/uL (0.00-0.50); Eosinophils % (auto) 0.4 %; Hematocrit (blood only) 28.5 % (37.0-47.0); Hemoglobin 8.9 g/dl (12.0-16.0); Immature Granulocytes # (auto) 0.04 K/uL (0.01-0.20); Immature Granulocytes % (auto) 0.8 %; Lymphocytes # (auto) 0.73 K/uL (1.20-3.40); Lymphocytes % (auto) 15.1 %; Mean Corpuscular Hemoglobin 28.5 pg (25.0-34.0); Mean Corpuscular Hgb Conc 31.2 g/dL (32.0-36.0); Mean Corpuscular Volume 91.3 fL (80.0-100.0); Mean Platelet Volume 9.7 fL (9.4-12.4); Monocytes # (auto) 0.62 K/uL (0.11-0.59); Monocytes % (auto) 12.8 %; Neutrophils # (auto) 3.42 K/uL (1.40-6.50); Neutrophils % (auto) 70.9 %; Platelet Count 183 K/uL (130-400); RDW Coefficient of Variation 20.3 % (11.5-14.5); RDW Standard Deviation 68.2 fL (36.4-46.3); Red Blood Count 3.12 M/uL (4.20-5.40); White Blood Count 4.83 K/ul (4.8-10.8)
[2025-02-14 07:29] LABS: Albumin Globulin Ratio 1.5 (0.9-2); BUN Creatinine Ratio 6.8 (10-20); Bilirubin,Total 0.4 mg/dl (0.2-1.0); Calcium 7.7 mg/dl (8.6-10.3); Creatinine Clr Calc Pharmacy 27.4 ml/min; Magnesium 1.7 mg/dl (1.7-2.4); Phosphorus 2.9 mg/dl (2.5-4.9); Potassium 3.9 mmol/L (3.5-5.1)
[2025-02-14 07:37] LABS: Polychromasia 1+
--- NOTE | 2025-02-14 07:40 | Pulmonology Progress Note ---
Date of Service February 14, 2025 Assessment & Plan (1) Bilateral pulmonary embolism: (2) Abnormal CT scan, chest: (3) Pleural effusion: (4) Pulmonary infarct: Plan CTA chest 02/03/2025 personally reviewed: Consolidative changes in the superior segment of the right lower lobe likely representing evolving infarct Pulmonary emboli appreciated bilaterally in the right lower as well as left lower subsegmental arteries right upper No significant mediastinal lymphadenopathy 2D echo 02/02/2025: EF 55-60%, grade 1 diastolic dysfunction, RV normal in size and function -- Acute DVT with pulmonary emboli DVT appreciated 02/03/2025 within bilateral popliteal and posterior tibial and peroneal veins -- Pleural effusion --> resolved Right-sided Likely reactive to pulmonary infarct Plan: In/out: +156, urine output 1704, +14 L since coming to the hospital Chest x-ray from today shows volume loss on the right side, minimal patchy opacity in the periphery of the right lower lung, increased hilar markings No pleural effusion on the CT abdomen pelvis done 02/13/2025 Continue with incentive spirometry Case was discussed with RN at bedside No further recommendation from pulmonary perspective, will sign off Please call directly with any questions Please note the above document was generated using voice recognition software. It may contain grammatical, syntax or spelling errors.Any formal questions or concerns about the content, text or information contained within the body of this dictation should be directly addressed to the provider for clarification. Admission and Anticipated Discharge Date Admission Date: January 29, 2025 Subjective Examined bedside. No acute distress, alert was resolved RN was also in the room at the time of examination Overall she says she is feeling > comes to her breathing Has been using incentive spirometry Pain appetite, no nausea or vomiting Asking if she could go home Review of Systems 2 Review of Systems: All systems reviewed & are unremarkable except as noted in Subjective Physical Exam 2 Physical Exam: Constitutional: No acute distress HEENT: EOMI, PERRLA Respiratory system: Good air entry bilaterally, no wheeze, no rhonchi, positive crackles right lower lobe CVS: S1-S2 positive, no murmurs or gallops, tachycardia Abdomen: Soft, nontender, nondistended, positive bowel sounds x4 Extremities: +2 pulses bilaterally radialis/ dorsalis pedis, no cyanosis, minimal edema bilateral lower extremity Neuro: Awake alert oriented x3 Psych: Normal mood and affect G/U: Positive Santillan Skin: no rashes, warm and dry Lymphatic: no cervical or axillary lymphadenopathy Results & Data Results & Data Vital Signs (Past 12 Hours) Vital Signs Temp Pulse Pulse Resp BP Pulse Ox O2 Del Method 02/14/25 02:22 36.8 C 80 18 108/60 96 Room Air 02/13/25 22:56 67 02/13/25 22:40 36.7 C 80 18 129/75 96 Room Air Laboratory Results 02/14/25 06:40 02/14/25 06:40 PG Care Time/CCT Total # of Minutes Spent Total Time Spent with Patient: Total time spent is greater than 50% in coordination of care (as documented) at patient's floor/unit and/or counseling patient: Coding Level of Care Code 74895 SUB INP/OBS CARE 2/35MIN Diagnoses Bilateral pulmonary embolism I26.[address] scan, chest R93.89 Pleural effusion J90 Pulmonary infarct I26.99
--- NOTE | 2025-02-14 07:50 | XRay Report ---
EXAM: XR chest 1V portable CLINICAL HISTORY: Followup. TECHNIQUE: X-ray images of the chest were obtained in frontal projection. COMPARISON: 02/13/2025. FINDINGS: Pulmonary Parenchyma: Ill-defined opacity seen in the right mid and lower zones. An atelectatic band seen in the right lower zone. Mild pleural reaction causing the blunting of right costophrenic recess. Heart and Mediastinum: Heart size and shape are normal. No mediastinal widening or masses. No hilar or mediastinal lymphadenopathy. Bony Thorax: Mild scoliosis of the thoracic spine [degenerative scoliosis] no evidence of fracture seen. Soft Tissues: Soft tissues overlying the chest wall are unremarkable. IMPRESSION: 1. Right mid and lower zone ill-defined opacity. Post-inflammatory. Suggest clinical and lab correlation. 2. Atelectatic bands seen in the right lower zone. 3. Mild pleural reaction causing blunting of the right costophrenic angle. 4. Comparing the previous x-ray dated 02/13/2025 there is more prominent lower zonal atelectasis, other findings remain stable. Electronically signed by Kilo Oseguera 02-14-2025 07:49 AM
[2025-02-14] MEDS: MIDODRINE HCL 2.5 MG TAB PO SCH (08:33)
[2025-02-14] MEDS: predniSONE 20 MG TAB PO SCH (12:28)
--- NOTE | 2025-02-14 14:08 | Hospitalist Progress Note ---
Date of Service February 14, 2025 Assessment & Plan (1) Complicated urinary tract infection: (2) Tatum tropicalis infection: (3) Right upper lobe pneumonia: (4) Metabolic acidosis: (5) Ureteral stent present: (6) Electrolyte abnormality: (7) Chronic renal failure (CRF), stage 3b: (8) Diarrhea due to drug: (9) Acute retention of urine: Plan 84-yo F with hx of hydronephrosis 2/2 to nephrolithiasis, ureteral stent placement last September 2024, exchanged January 13, 2025, presenting with Right lower back/flank pain. Septic shock Recurrent UTI in the setting of nephrolithiasis, ureteral stents Initially required ICU admission , and pressor support Off Levophed now S/p ureteral stent exchange by urology - 02/01/2025, 02/10 Follow-up urine culture and blood cultures History of recurrent Klebsiella UTI, most recent November 2024 Similar presentation back in November 2024 Urine cultx posit. for E coli and Tatum tropicalis, repeat positive for tatum tropicalis only ID consulted, appreciate recs -Pt is on fluconazole, caspofungin, end date 02/14 -completed ceftriaxone + doxycycline Poss. pneumonia on chest x-ray: Patient denies respiratory symptoms. BioFire - negative nasal MRSA - negative Improving Acute on Chronic Anemia hematuria Hgb with acute drop once more from 10.9 to 8.9 on 02/14 Pt now with dark red urine output Anemia panel Will hold Eliquis at this time urology consulted once more on 02/14- awaiting further recs Continue to monitor H/H Pulmonary Emboli DVT Pulmonary Infarcts Loculated Pleural Effusions CT chest No contrast - "IMPRESSION: Moderate-sized wedge-shaped area of consolidation superior aspect right lower lobe. Differential diagnosis includes focal pneumonia and pulmonary infarction. Suggest correlation with d-dimer. Recommend follow-up chest CT in 3 months to make sure this completely resolves without underlying nodule." Echo obtained - No vegetation or mass. EF 55-60% Doppler noting PE in bilateral popliteal, posterior tibial and peroneal veins. IV heparin,switched to Eliquis on DC Pulmonary consulted, for progressing loculated pleural effusion, pulm infarcts -pt being diuresed Pt with no increased oxygen requirement Continue to monitor 02/13- pt with tachycardia and hypotension. EKG with sinus tach. Likely in the setting of diuresis. Given 3 boluses of IV albumin, started on midodrine 2.5mg TID. H/H stable, continue Eliquis at this time. Pt asymptomatic. Follow repeat cultures. 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 No acute distress HEENT: NC/AT CV: RRR Resp: Breath sounds clear bilaterally, no increased effort of breathing Abdomen: Soft, nontender Extremities: No edema in lower extremities bilaterally Results & Data Results & Data Vital Signs (Past 12 Hours) Vital Signs Temp Pulse Pulse Resp BP Pulse Ox O2 Del Method 02/14/25 09:00 83 02/14/25 07:58 65 16 119/64 96 Room Air 02/14/25 02:22 36.8 C 80 18 108/60 96 Room Air
[2025-02-14 15:06] LABS: Appearance Urine Turbid (Clear); Bilirubin Urine Negative (Negative); Blood Urine 3+ (Negative); Color Urine Red; Glucose Urine UA Trace (Negative); Ketones Urine Negative (Negative); Leukocyte Esterase Urine 1+ (Negative); Nitrite Urine Negative (Negative); Protein Urine 3+ (Negative); Specific Gravity Urine 1.025 (1.000-1.030); Urobilinogen Urine Negative (Negative)
[2025-02-14 15:30] LABS: Epithelial Cell Urine 0-2 /hpf (0-2)
[2025-02-14 15:31] LABS: Bacteria Urine None Seen (None Seen); RBC Urine >20 /hpf (0-2); WBC Urine 0-5 /hpf (0-5)
[2025-02-15 07:20] LABS: Basophils # (auto) 0.01 K/uL (0.00-0.20); Basophils % (auto) 0.2 %; Eosinophils # (auto) 0.03 K/uL (0.00-0.50); Eosinophils % (auto) 0.5 %; Hematocrit (blood only) 29.8 % (37.0-47.0); Hemoglobin 9.2 g/dl (12.0-16.0); Immature Granulocytes # (auto) 0.04 K/uL (0.01-0.20); Immature Granulocytes % (auto) 0.6 %; Lymphocytes # (auto) 1.08 K/uL (1.20-3.40); Lymphocytes % (auto) 16.2 %; Mean Corpuscular Hemoglobin 28.6 pg (25.0-34.0); Mean Corpuscular Hgb Conc 30.9 g/dL (32.0-36.0); Mean Corpuscular Volume 92.5 fL (80.0-100.0); Mean Platelet Volume 9.5 fL (9.4-12.4); Monocytes # (auto) 0.61 K/uL (0.11-0.59); Monocytes % (auto) 9.2 %; Neutrophils # (auto) 4.88 K/uL (1.40-6.50); Neutrophils % (auto) 73.3 %; Platelet Count 202 K/uL (130-400); RDW Standard Deviation 68.5 fL (36.4-46.3); Red Blood Count 3.22 M/uL (4.20-5.40); White Blood Count 6.65 K/ul (4.8-10.8)
[2025-02-15 07:48] LABS: Alanine Aminotransferase 8 U/L (7-52); Albumin Globulin Ratio 1.4 (0.9-2); Alkaline Phosphatase 70 U/L (34-104); Anion Gap 2 (3-11); Aspartate Aminotransferase 9 U/L (13-39); BUN Creatinine Ratio 8.1 (10-20); Bilirubin,Total 0.3 mg/dl (0.2-1.0); Blood Urea Nitrogen 10 mg/dl (6-23); Calcium 7.8 mg/dl (8.6-10.3); Carbon Dioxide 22 mmol/L (21-32); Chloride 114 mmol/L (98-107); Creatinine Clr Calc Pharmacy 26.4 ml/min; Globulin 2.2 gm/dl (2.5-4.0); Glucose 79 mg/dl (70-99(Fasting)); Iron < 10 mcg/dl (35-150); Magnesium 1.6 mg/dl (1.7-2.4); Phosphorus 2.5 mg/dl (2.5-4.9); Potassium 5.2 mmol/L (3.5-5.1); Sodium 138 mmol/L (136-145); Total Iron Binding Cap Calc 178 mcg/dl (250-450); Total Protein 5.2 gm/dl (6.0-8.3); Transferrin 127 mg/dl (200-360)
[2025-02-15 08:01] LABS: Ferritin 307.2 ng/ml (8-388)
[2025-02-15 08:05] LABS: Folate (Folic Acid),Ser orPlas 3.87 ng/ml (>5.38)
[2025-02-15] MEDS: IRON SUCROSE 200 MG in SODIUM CHLORIDE 0.9% 100 ML IV ONE (08:47)
[2025-02-15] MEDS: ALBUMIN 5% 250 ML IV ONE (09:24)
[2025-02-15] MEDS: MAGNESIUM SULFATE / D5W 1 GM/100 ML BAG IV SCH (09:57)
--- NOTE | 2025-02-15 11:46 | Hospitalist Progress Note ---
Date of Service February 15, 2025 Assessment & Plan (1) Complicated urinary tract infection: (2) Tatum tropicalis infection: (3) Right upper lobe pneumonia: (4) Metabolic acidosis: (5) Ureteral stent present: (6) Electrolyte abnormality: (7) Chronic renal failure (CRF), stage 3b: (8) Diarrhea due to drug: (9) Acute retention of urine: Plan 84-yo F with hx of hydronephrosis 2/2 to nephrolithiasis, ureteral stent placement last September 2024, exchanged January 13, 2025, presenting with Right lower back/flank pain. Septic shock Recurrent UTI in the setting of nephrolithiasis, ureteral stents Initially required ICU admission , and pressor support Off Levophed now S/p ureteral stent exchange by urology - 02/01/2025, 02/10 Follow-up urine culture and blood cultures History of recurrent Klebsiella UTI, most recent November 2024 Similar presentation back in November 2024 Urine cultx posit. for E coli and Tatum tropicalis, repeat positive for tatum tropicalis only ID consulted, appreciate recs -Pt is on fluconazole, caspofungin, end date 02/14 -completed ceftriaxone + doxycycline Poss. pneumonia on chest x-ray: Patient denies respiratory symptoms. BioFire - negative nasal MRSA - negative Improving Acute on Chronic Anemia hematuria Hgb with acute drop once more from 10.9 to 8.9 on 02/14 Pt now with dark red urine output Anemia panel noting iron deficiency, s/p IV venofer 200mg on 02/15, continue home ferrous sulfate supplement Will hold Eliquis at this time- hematology and Urology consulted for further recs-pending urology consulted once more on 02/14- awaiting further recs Hematology consulted Continue to monitor H/H H/H improved with Eliquis on hold Pulmonary Emboli DVT Pulmonary Infarcts Loculated Pleural Effusions CT chest No contrast - "IMPRESSION: Moderate-sized wedge-shaped area of consolidation superior aspect right lower lobe. Differential diagnosis includes focal pneumonia and pulmonary infarction. Suggest correlation with d-dimer. Recommend follow-up chest CT in 3 months to make sure this completely resolves without underlying nodule." Echo obtained - No vegetation or mass. EF 55-60% Doppler noting PE in bilateral popliteal, posterior tibial and peroneal veins. IV heparin,switched to Eliquis on DC Pulmonary consulted, for progressing loculated pleural effusion, pulm infarcts -pt being diuresed Pt with no increased oxygen requirement Continue to monitor 02/13- pt with tachycardia and hypotension. EKG with sinus tach. Likely in the setting of diuresis. Given 3 boluses of IV albumin, started on midodrine 2.5mg TID. H/H stable, continue Eliquis at this time. Pt asymptomatic. Follow repeat cultures. 02/14- eliquis currently on hold 02/15- hgb improved today, continue to hold Eliquis. 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 No acute distress HEENT: NC/AT CV: RRR Resp: Breath sounds clear bilaterally, no increased effort of breathing Abdomen: Soft, nontender Extremities: No edema in lower extremities bilaterally Results & Data Results & Data Vital Signs (Past 12 Hours) Vital Signs Temp Pulse Resp BP Pulse Ox O2 Del Method 02/15/25 11:32 36.8 C 76 19 92/58 L 95 Room Air 02/15/25 07:05 37.2 C 74 18 95/58 L 96 Room Air 02/15/25 02:31 36.8 C 75 18 103/67 98 Room Air
--- NOTE | 2025-02-15 17:34 | Oncology Consultation ---
Date of Consultation February 15, 2025 Assessment & Plan (1) Bilateral pulmonary embolism: (2) Pulmonary infarct: (3) Hematuria: Plan Patient with provoked VTE secondary to hospitalization, immobilization and multiple procedures. Recommend resuming anticoagulation once hematuria has r esolved. May consider starting with prophylactic dosing of Lovenox/heparin and if labs are stable over 24 to 48 hours can transition back to Eliquis. History of Present Illness Reason for Consultation: anticoag recs, anemia, hematuria with PE and infar Attending Physician: Pippa Bermudez MD History of Present Illness 84-year-old female admitted to [facility] with back pain secondary to recurrent UTI in the setting of nephrolithiasis that is post ureteral stent placement. Patient was admitted on 01/29/2025. CTA chest on 02/03/2025 showed numerous bilateral pulmonary emboli with 5.8 x 3.4 infarct wit hin the superior segment of the right lower lobe. Lower extremity ultrasound revealed bilateral popliteal and posterior tibial and peroneal vein DVT. Patient was initially placed on heparin and subsequently switched to Eliquis. Eliquis was held due to dropping hemoglobin/hematocrit and hematuria. Hematology was consulted for anticoagulation recommendations due to hematuria Allergies Allergy/AdvReac Type Severity Reaction Status Date / Time influenza virus vaccine, Allergy Severe G[place]an Verified 01/29/25 12:51 specific [place] Syndrome Sulfa (Sulfonamide Allergy Unknown Unknown Verified 01/29/25 12:51 Antibiotics) cephalexin AdvReac Mild Nausea Verified 01/29/25 12:51 Home Medications Medication Instructions Recorded Confirmed Type ferrous sulfate 325 mg (65 mg 325 mg PO QDL 07/17/18 01/29/25 History iron) tablet (iron) raloxifene 60 mg tablet 60 mg PO QAM 01/20/20 01/29/25 History cyanocobalamin (vitamin B-12) 500 500 mcg PO QAM 12/20/20 01/29/25 History mcg tablet (Vitamin B-12) cranberry extract 500 mg capsule 500 mg PO QAM 05/08/21 01/29/25 History (Cranberry Concentrate) potassium chloride 10 mEq 40 meq PO BIDWMEAL 04/09/22 01/29/25 History tablet,extended release acetaminophen 500 mg tablet 1,000 mg PO Q8 PRN Pain 02/05/24 01/29/25 History loperamide 2 mg capsule 2 mg PO Q6H PRN loose stool #30 12/04/24 01/29/25 Rx caps Bifidobacterium infantis 4 mg 4 mg PO QDL 01/04/25 01/29/25 History capsule (Align (B.infantis)) cholecalciferol (vitamin D3) 25 25 mcg PO QDL 01/29/25 01/29/25 History mcg (1,000 unit) tablet (Vitamin D3) mirtazapine 7.5 mg tablet 7.5 mg PO HS 01/29/25 01/29/25 History apixaban 5 mg tablet (Eliquis) 5 mg PO BID #60 tabs 02/17/25 Rx Patient History Medical History Depression Hypotension States Metoprolol on hold Hx of sepsis Sepsis/MALINA r/t UTI, hospitalized at [facility] 10/2024 History of colitis Neuropathy involving both lower extremities Hydronephrosis concurrent with and due to calculi of kidney and ureter History of seizure Single episode s/p benign brain tumor excision (1998) No issues since History of right breast cancer (2000) s/p radiation Kidney stones Anemia Chronic Hx of Guillain-[place] syndrome (1998) After flu shot (1998) Mild residual LE neuropathy Osteoarthritis 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 Surgical History History of postoperative nausea and vomiting History of open reduction and internal fixation (ORIF) procedure right femur fx - [facility] - 09/2024 Hx of lithotripsy (01/18/21) S/P cystoscopy with ureteral stent placement Multiple History of tooth extraction History of colonoscopy History of appendectomy History of total knee replacement R/L (2020) History of hip surgery right and left due to falling History of brain surgery (1998) 1998; benign tumor excision Hx of hysterectomy Hx of lumpectomy Right breast- had xrt Family History Mother Macular degeneration Father Kidney stone Diabetes Social History Smoking Status: Never smoker Tobacco Type: Declines Second Hand Exposure: No; Do You Dip or Chew Tobacco: No; Hx Alcohol Use: No Hx Substance Use: No Preferred Language: [place]guill[place] Communication Ability: Effective Visual Impairment: No Limitations Zigzag Elastic Attacher Required: No Beliefs That Will Affect Care: None marital status: / Current Living Situation: Alone Current Living Situation Comment: son Feels Safe at Home: Yes Assistive Devices: None Results & Data Vital Signs (Past 12 Hours) Vital Signs Temp Pulse Pulse Resp BP Pulse Ox O2 Del Method 02/15/25 15:27 36.9 C 79 17 93/56 L 96 Room Air 02/15/25 14:40 104 H 02/15/25 12:34 69 02/15/25 11:32 36.8 C 76 19 92/58 L 95 Room Air 02/15/25 07:05 37.2 C 74 18 95/58 L 96 Room Air
[2025-02-16 07:04] LABS: Basophils # (auto) 0.01 K/uL (0.00-0.20); Basophils % (auto) 0.2 %; Eosinophils # (auto) 0.01 K/uL (0.00-0.50); Eosinophils % (auto) 0.2 %; Hematocrit (blood only) 28.6 % (37.0-47.0); Hemoglobin 8.8 g/dl (12.0-16.0); Immature Granulocytes # (auto) 0.04 K/uL (0.01-0.20); Immature Granulocytes % (auto) 0.9 %; Lymphocytes # (auto) 1.11 K/uL (1.20-3.40); Lymphocytes % (auto) 23.9 %; Mean Corpuscular Hemoglobin 28.4 pg (25.0-34.0); Mean Corpuscular Hgb Conc 30.8 g/dL (32.0-36.0); Mean Corpuscular Volume 92.3 fL (80.0-100.0); Mean Platelet Volume 9.4 fL (9.4-12.4); Monocytes % (auto) 8.6 %; Neutrophils # (auto) 3.08 K/uL (1.40-6.50); Neutrophils % (auto) 66.2 %; Platelet Count 201 K/uL (130-400); RDW Coefficient of Variation 19.9 % (11.5-14.5); RDW Standard Deviation 67.4 fL (36.4-46.3); White Blood Count 4.65 K/ul (4.8-10.8)
[2025-02-16 07:22] LABS: Albumin Globulin Ratio 1.3 (0.9-2); Bilirubin,Total 0.3 mg/dl (0.2-1.0); Calcium 7.8 mg/dl (8.6-10.3); Creatinine Clr Calc Pharmacy 26.6 ml/min; Globulin 2.3 gm/dl (2.5-4.0); Phosphorus 2.8 mg/dl (2.5-4.9); Potassium 4.6 mmol/L (3.5-5.1); Total Protein 5.3 gm/dl (6.0-8.3)
[2025-02-16] MEDS ORDERED: Heparin IV Adult Wt-Based Standard *NO* INITIAL Bolus Protocol IV STA (07:50)
[2025-02-16] MEDS: HEPARIN 25000 UNIT/500 ML D5W 25,000 UNITS/500 ML BAG IV SCH (08:16)
[2025-02-16 08:53] LABS: INR 0.9 (0.9-1.1); Partial Thromboplastin Ratio 1.2; Partial Thromboplastin Time 31 Seconds (21-31); Prothrombin Time 9.5 Seconds (9.0-12.0)
--- NOTE | 2025-02-16 14:56 | Hospitalist Progress Note ---
Date of Service February 16, 2025 Assessment & Plan (1) Complicated urinary tract infection: (2) Tatum tropicalis infection: (3) Right upper lobe pneumonia: (4) Metabolic acidosis: (5) Ureteral stent present: (6) Electrolyte abnormality: (7) Chronic renal failure (CRF), stage 3b: (8) Diarrhea due to drug: (9) Acute retention of urine: Plan 84-yo F with hx of hydronephrosis 2/2 to nephrolithiasis, ureteral stent placement last September 2024, exchanged January 13, 2025, presenting with Right lower back/flank pain. Septic shock Recurrent UTI in the setting of nephrolithiasis, ureteral stents Initially required ICU admission , and pressor support Off Levophed now S/p ureteral stent exchange by urology - 02/01/2025, 02/10 History of recurrent Klebsiella UTI, most recent November 2024 Similar presentation back in November 2024 Urine cultx posit. for E coli and Tatum tropicalis, repeat positive for tatum tropicalis only ID consulted, appreciate recs -Pt is on fluconazole, caspofungin, end date 02/14 -completed ceftriaxone + doxycycline Acute on Chronic Anemia hematuria Pulmonary Emboli DVT Pulmonary Infarcts Patient was diagnosed with PE on CTA chest with numerous bilateral pulmonary emboli along with infarction within superior segment of right lower lobe. She was also found to have DVT within bilateral popliteal, posterior tibial and peroneal veins Patient was placed on anticoagulation with Eliquis; noted to have hematuria. Eliquis kept on hold. After discussion with the patient and patient's daughter given the pros and cons of anticoagulation; patient is started on heparin drip with close monitoring of hematuria. Case was discussed with urology as well for consideration of removal of stent while inpatient; will follow-up on recommendation. Monitor CBC daily. Discussed possible IVC filter placement if patient continues to have significant anemia while on anticoagulation. Acute kidney injury- resolved Secondary to above received IVF initially, then once pt had fluid overload have been treating with IV albumin Hypomagnesemia replete as needed Other chronic medical problems Paroxysmal atrial tachycardia- hold metoprolol for now in light of hypotension Prostatic right knee joint periprosthetic fracture Status post ORIF at 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 It may contain grammatical, syntax or spelling errors. Any formal questions or concerns about the content, text or information contained within the body of this dictation should be directly addressed to the provider for clarification Admission and Anticipated Discharge Date Admission Date: January 29, 2025 Subjective Patient seen and examined at bedside. She is comfortable; not in distress She denies any pain or discomfort. Vital signs remained stable and she is saturating well on room air. Review of Systems Review of Systems: All systems reviewed & are unremarkable except as noted in Subjective Physical Exam Physical Exam: Constitutional: Alert oriented x 3; not in distress. Respiratory: normal respiratory effort, lungs clear to auscultation, no wheeze, rales, rhonchi. Normal insp/exp effort, no accessory muscle use Cardiovascular: RRR, no murmur, no edema Vessels: no JVD or carotid bruit Chest: normal inspection of chest Abdomen: normal bowel sounds, soft, nontender, no hepatosplenomegaly. Santillan catheter in place draining reddish urine; no clots. Neurologic: PERRL, EOMI, accommodation nl, no face palsy, no dysarthria CN's II- XI intact bilaterally and moves all extremities Psychiatric: A+Ox3, euthymic affect Results & Data Results & Data Vital Signs (Past 12 Hours) Vital Signs Temp Pulse Pulse Resp BP Pulse Ox O2 Del Method 02/16/25 14:16 93 H 02/16/25 10:49 36.7 C 86 19 103/67 98 Room Air 02/16/25 10:21 64 02/16/25 07:23 36.7 C 70 17 93/61 L 97 Room Air
[2025-02-16 15:35] LABS: ANTI-Xa, UFH(UnfractionatedHep 0.39 IU/ml (0.3-0.7)
[2025-02-16 19:28] LABS: Appearance Urine Cloudy (Clear); Bilirubin Urine Negative (Negative); Blood Urine 3+ (Negative); Color Urine Red; Glucose Urine UA Trace (Negative); Ketones Urine Negative (Negative); Leukocyte Esterase Urine 2+ (Negative); Nitrite Urine Negative (Negative); Protein Urine 3+ (Negative); Specific Gravity Urine 1.025 (1.000-1.030); Urobilinogen Urine Negative (Negative)
[2025-02-16 20:39] LABS: Bacteria Urine None Seen (None Seen); Epithelial Cell Urine 0-2 /hpf (0-2); RBC Urine >20 /hpf (0-2)
[2025-02-17 07:41] LABS: Basophils # (auto) 0.01 K/uL (0.00-0.20); Basophils % (auto) 0.2 %; Eosinophils # (auto) 0.01 K/uL (0.00-0.50); Eosinophils % (auto) 0.2 %; Hematocrit (blood only) 30.5 % (37.0-47.0); Hemoglobin 9.5 g/dl (12.0-16.0); Immature Granulocytes # (auto) 0.03 K/uL (0.01-0.20); Immature Granulocytes % (auto) 0.6 %; Lymphocytes # (auto) 1.25 K/uL (1.20-3.40); Lymphocytes % (auto) 24.8 %; Mean Corpuscular Hemoglobin 28.8 pg (25.0-34.0); Mean Corpuscular Hgb Conc 31.1 g/dL (32.0-36.0); Mean Corpuscular Volume 92.4 fL (80.0-100.0); Mean Platelet Volume 9.6 fL (9.4-12.4); Monocytes % (auto) 5.9 %; Neutrophils # (auto) 3.45 K/uL (1.40-6.50); Neutrophils % (auto) 68.3 %; Platelet Count 239 K/uL (130-400); RDW Coefficient of Variation 19.9 % (11.5-14.5); RDW Standard Deviation 68.2 fL (36.4-46.3); White Blood Count 5.05 K/ul (4.8-10.8)
[2025-02-17 07:51] LABS: BUN Creatinine Ratio 9.8 (10-20); Calcium 7.9 mg/dl (8.6-10.3); Creatinine Clr Calc Pharmacy 24.4 ml/min; Potassium 3.7 mmol/L (3.5-5.1)
[2025-02-17 07:56] LABS: ANTI-Xa, UFH(UnfractionatedHep 0.59 IU/ml (0.3-0.7)
--- NOTE | 2025-02-17 09:33 | Urology Progress Note ---
Date of Service February 17, 2025 Assessment & Plan (1) Ureteral stent present: (2) Hematuria: Plan: Patient initially presented acutely ill with urosepsis She is s/p Bilateral stents exchange on 02/01/2025, then underwent bilateral stone treatment on 02/10/2025 with stent exchange Asked to revisit patient due to ongoing hematuria Patient has been treated with antifungals for Tatum tropicalis Completed course of ceftriaxone and doxycycline during admission She is on heparin drip for pulmonary emboli, DVT and pulmonary infarcts Hematuria can be expected in the setting of bilateral ureteral stents Given concern for ongoing hematuria with anticoagulation, patient has remained hospitalized She is scheduled for outpatient stent removal on 03/01 We discussed bedside cystoscopy today to remove bilateral ureteral stents She is agreeable, discussed care with her daughter (Melvina) who is also agreeable We will hold heparin prior to stent removal, then can resume after procedure Continue supportive care, medical management per hospital medicine service See attending note for further details regarding procedure Attending note: Patient independently assessed, examined, interviewed, and evaluated. Discussed extensively options for stent removal. Had initially planned to have stent removal in office this week however due to patient's ongoing medical issues had remained in the hospital. Patient was requesting management of stents while still inpatient. Risk benefits were thoroughly explained discussed and consent was given to proceed with bedside stent removal. Agree with note as above. Patient's vitals and labs were all reviewed. Pertinent values in the HPI and plan section. Imaging was reviewed interpreted by myself. Agree with read. Vitals were reviewed. Patient presenting for cystoscopy and stent removal after treatment of stone. Patient was prepped and draped in standard fashion and stent was removed without issues. See note below. Patient for bedside stent removal bilateral. Catheter was removed. General: Alert in no acute distress. HEENT: Normocephalic Atraumatic. Inspection normal. Psychologic: Normal affect. Respiratory: Nonlabored. Cardiovascular: No tachycardia Skin: [place] and Dry. Cystoscopy Procedure performed by: Guillermo Joshua II Indications: Stent removal Discussed with patient risks, benefits, and alternatives. These include, but are not limited to, risks of bleeding, infection risks and possible injury to urethra or bladder. Written consent was obtained prior to the procedure Time Out: Completed, the identity of patient was confirmed via name and date of , by patient and the correct site and the procedure to be performed were confirmed Anesthesia: 1% Viscous Lidocaine gel Patient was prepped and draped in the usual sterile fashion using: betadine The periurethral area was exposed and lubricated and a flexible cystocope placed. The cystoscope was placed placed into the urethra and advanced to the bladder neck and the bladder was distended with saline. The entire bladder, urethra, and surround areas were examined. Stent was grasped and removed without issue the left stent was removed first. The right stent was then grasped after removing the left. Both stents were easily removed without major issue. There was no significant active bleeding noted within the bladder. There was debris and old appearing blood clots in the base of the bladder. These were able to be irrigated clear. After completion of the procedure the bladder was left somewhat full. An 18 Irish silicone catheter was then placed and set to drainage. The urine was found to be very clear with a tinge/light pink in color Patient Status: Tolerated procedure well with minimal discomfort. Vital signs were stable Complications: No complications Patient Instructions: Patient was instructed to monitor and to notify a provider for bleeding, signs and symptoms of UTI, or fevers. Call if any issues. Maintain catheter. May trial removal in next few days. Discussed patient's current diagnosis as well as concerns and issues. Reviewed different options moving forward. Discussed potential risks and benefits as well as possible options and concerns. Patient agreed and consented to the procedure. Plan to followup in office in 1-2 months with CASSANDRA with plan to order imaging. Admission and Anticipated Discharge Date Admission Date: January 29, 2025 Subjective Asked to revisit patient due to ongoing hematuria. Patient seen and examined at bedside. She is generally doing well. Frustrated with prolonged hospital stay. Santillan intact draining transparent michel urine. Labs todaycreatinine 1.33, WBCs 5.05, hemoglobin 9.5. Remains on heparin drip. Completed course of antifungals on 02/14. Review of Systems Constitutional: as per Subjective / HPI Genitourinary: as per Subjective / HPI Physical Exam Constitutional: well developed and well nourished; no acute distress Respiratory: normal respiratory effort; no respiratory distress and no labored breathing Gastrointestinal (Abdomen): Inspection/Auscultation: abdomen normal to inspection Musculoskeletal: Head/Neck/Chest: normocephalic Neurologic: moves all extremities and awake Psychiatric: Orientation: alert and oriented x 3 Genitourinary: Santillan patent and draining transparent michel urine Results & Data Vital Signs (Past 12 Hours) Vital Signs Temp Pulse Pulse Resp BP Pulse Ox O2 Del Method 02/17/25 08:00 64 02/17/25 07:13 36.7 C 74 17 109/67 99 Room Air 02/17/25 02:50 36.7 C 63 16 108/63 97 Room Air 02/16/25 23:13 36.7 C 66 16 92/56 L 97 Room Air 02/16/25 22:32 61 PG Care Time/CCT Total # of Minutes Spent Total Time Spent with Patient: Total time spent is greater than 50% in coordination of care (as documented) at patient's floor/unit and/or counseling patient: Coding Level of Care Code 48222 SUB INP/OBS CARE 3/50MIN Diagnoses Ureteral stent present Z96.0 Hematuria R31.9 CPT Codes CYSTOURETHROSCOPY W REMOVAL FB/STENT URETH/BLD COMP - 44176 ([id number])
[2025-02-17] MEDS ORDERED: Nursing to Pharmacy Communication SCH (10:30)
--- NOTE | 2025-02-17 12:23 | Hospitalist Progress Note ---
Date of Service February 17, 2025 Assessment & Plan (1) Complicated urinary tract infection: (2) Tatum tropicalis infection: (3) Right upper lobe pneumonia: (4) Metabolic acidosis: (5) Ureteral stent present: (6) Electrolyte abnormality: (7) Chronic renal failure (CRF), stage 3b: (8) Diarrhea due to drug: (9) Acute retention of urine: Plan 84-yo F with hx of hydronephrosis 2/2 to nephrolithiasis, ureteral stent placement last September 2024, exchanged January 13, 2025, presenting with Right lower back/flank pain. Septic shock Recurrent UTI in the setting of nephrolithiasis, ureteral stents Initially required ICU admission , and pressor support Off Levophed now S/p ureteral stent exchange by urology - 02/01/2025, 02/10 History of recurrent Klebsiella UTI, most recent November 2024 Similar presentation back in November 2024 Urine cultx posit. for E coli and Tatum tropicalis, repeat positive for tatum tropicalis only ID consulted, appreciate recs -Pt is on fluconazole, caspofungin, end date 02/14 -completed ceftriaxone + doxycycline Status post removal of the stent on 02/17 by urology Hematuria resolved after removal of the stent Voiding trial to be done as outpatient in urology office Acute on Chronic Anemia hematuria Pulmonary Emboli DVT Pulmonary Infarcts Patient was diagnosed with PE on CTA chest with numerous bilateral pulmonary emboli along with infarction within superior segment of right lower lobe. She was also found to have DVT within bilateral popliteal, posterior tibial and peroneal veins Patient was placed on anticoagulation with Eliquis; noted to have hematuria. Eliquis kept on hold. Hematuria resolved after removal of the stent on 02/17; continued heparin and plan to switch over to Eliquis at the time of discharge. 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 It may contain grammatical, syntax or spelling errors. Any formal questions or concerns about the content, text or information contained within the body of this dictation should be directly addressed to the provider for clarification Admission and Anticipated Discharge Date Admission Date: January 29, 2025 Subjective Patient seen and examined at bedside; she had removal of the stent done earlier today. Urine in the Santillan catheter appears clear. Review of Systems Review of Systems: All systems reviewed & are unremarkable except as noted in Subjective Physical Exam Physical Exam: Constitutional: Alert oriented x 3; not in distress. Respiratory: normal respiratory effort, lungs clear to auscultation, no wheeze, rales, rhonchi. Normal insp/exp effort, no accessory muscle use Cardiovascular: RRR, no murmur, no edema Vessels: no JVD or carotid bruit Chest: normal inspection of chest Abdomen: normal bowel sounds, soft, nontender, no hepatosplenomegaly. Santillan catheter in place draining reddish urine; no clots. Neurologic: PERRL, EOMI, accommodation nl, no face palsy, no dysarthria CN's II- XI intact bilaterally and moves all extremities Psychiatric: A+Ox3, euthymic affect Results & Data Results & Data Vital Signs (Past 12 Hours) Vital Signs Temp Pulse Pulse Resp BP Pulse Ox O2 Del Method 02/17/25 10:38 37.0 C 89 17 96/61 L 96 Room Air 02/17/25 08:00 64 02/17/25 07:13 36.7 C 74 17 109/67 99 Room Air 02/17/25 02:50 36.7 C 63 16 108/63 97 Room Air
[2025-02-17 18:01] LABS: ANTI-Xa, UFH(UnfractionatedHep 0.48 IU/ml (0.3-0.7)
[2025-02-18 07:34] LABS: Basophils # (auto) 0.01 K/uL (0.00-0.20); Basophils % (auto) 0.3 %; Eosinophils # (auto) 0.02 K/uL (0.00-0.50); Eosinophils % (auto) 0.5 %; Hematocrit (blood only) 26.6 % (37.0-47.0); Hemoglobin 8.4 g/dl (12.0-16.0); Immature Granulocytes # (auto) 0.02 K/uL (0.01-0.20); Immature Granulocytes % (auto) 0.5 %; Lymphocytes % (auto) 32.1 %; Mean Corpuscular Hemoglobin 28.4 pg (25.0-34.0); Mean Corpuscular Hgb Conc 31.6 g/dL (32.0-36.0); Mean Corpuscular Volume 89.9 fL (80.0-100.0); Mean Platelet Volume 9.6 fL (9.4-12.4); Monocytes # (auto) 0.25 K/uL (0.11-0.59); Monocytes % (auto) 6.7 %; Neutrophils # (auto) 2.24 K/uL (1.40-6.50); Neutrophils % (auto) 59.9 %; Platelet Count 192 K/uL (130-400); RDW Coefficient of Variation 19.3 % (11.5-14.5); RDW Standard Deviation 63.9 fL (36.4-46.3); Red Blood Count 2.96 M/uL (4.20-5.40); White Blood Count 3.74 K/ul (4.8-10.8)
[2025-02-18 08:22] LABS: BUN Creatinine Ratio 11.1 (10-20); Calcium 7.5 mg/dl (8.6-10.3); Creatinine Clr Calc Pharmacy 32.6 ml/min; Potassium 3.3 mmol/L (3.5-5.1)
[2025-02-18 08:41] LABS: ANTI-Xa, UFH(UnfractionatedHep 0.43 IU/ml (0.3-0.7)
[2025-02-18] MEDS: POTASSIUM CHLORIDE CRTAB 20 MEQ TABCR PO STA (11:59)
--- NOTE | 2025-02-18 14:31 | Hospitalist Progress Note ---
Date of Service February 18, 2025 Assessment & Plan (1) Complicated urinary tract infection: (2) Tatum tropicalis infection: (3) Right upper lobe pneumonia: (4) Metabolic acidosis: (5) Ureteral stent present: (6) Electrolyte abnormality: (7) Chronic renal failure (CRF), stage 3b: (8) Diarrhea due to drug: (9) Acute retention of urine: Plan 84-yo F with hx of hydronephrosis 2/2 to nephrolithiasis, ureteral stent placement last September 2024, exchanged January 13, 2025, presenting with Right lower back/flank pain. Septic shock Recurrent UTI in the setting of nephrolithiasis, ureteral stents Initially required ICU admission , and pressor support S/p ureteral stent exchange by urology - 02/01/2025, 02/10 History of recurrent Klebsiella UTI, most recent November 2024 Similar presentation back in November 2024 Urine cultx posit. for E coli and Tatum tropicalis, repeat positive for tatum tropicalis only ID consulted, appreciate recs -Pt is on fluconazole, caspofungin, end date 02/14 -completed ceftriaxone + doxycycline Status post removal of the stent on 02/17 by urology Hematuria resolved after removal of the stent However, hematuria reoccurred again on 02/18. Hemoglobin remained stable around 8-9 Repeat blood culture ordered Discussed with urology again on 02/18; will remove Santillan to see if it is caused by irritation by catheter Acute on Chronic Anemia hematuria Pulmonary Emboli DVT Pulmonary Infarcts Patient was diagnosed with PE on CTA chest with numerous bilateral pulmonary emboli along with infarction within superior segment of right lower lobe. She was also found to have DVT within bilateral popliteal, posterior tibial and peroneal veins Patient was placed on anticoagulation with Eliquis; noted to have hematuria. Eliquis kept on hold. Hematuria resolved after removal of the stent on 02/17; continued heparin and plan to switch over to Eliquis at the time of discharge. 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 It may contain grammatical, syntax or spelling errors. Any formal questions or concerns about the content, text or information contained within the body of this dictation should be directly addressed to the provider for clarification Admission and Anticipated Discharge Date Admission Date: January 29, 2025 Subjective Patient seen and examined at bedside. Overnight, patient started to have hematuria again. Denies any pain or discomfort. Review of Systems Review of Systems: All systems reviewed & are unremarkable except as noted in Subjective Physical Exam Physical Exam: Constitutional: Alert oriented x 3; not in distress. Respiratory: normal respiratory effort, lungs clear to auscultation, no wheeze, rales, rhonchi. Normal insp/exp effort, no accessory muscle use Cardiovascular: RRR, no murmur, no edema Vessels: no JVD or carotid bruit Chest: normal inspection of chest Abdomen: normal bowel sounds, soft, nontender, no hepatosplenomegaly. Santillan catheter in place draining reddish urine; no clots. Neurologic: PERRL, EOMI, accommodation nl, no face palsy, no dysarthria CN's II- XI intact bilaterally and moves all extremities Psychiatric: A+Ox3, euthymic affect Results & Data Results & Data Vital Signs (Past 12 Hours) Vital Signs Temp Pulse Pulse Resp BP Pulse Ox O2 Del Method 02/18/25 14:17 71 02/18/25 11:18 36.7 C 97 H 18 90/56 L 97 Room Air 02/18/25 09:00 63 02/18/25 07:27 36.7 C 64 16 110/65 95 Room Air 02/18/25 06:16 36.7 C 63 18 114/70 97 Room Air
[2025-02-18] MEDS: SODIUM CHLORIDE 0.9% 250 ML IV ONE (19:40)
[2025-02-19 06:48] LABS: Basophils # (auto) 0.01 K/uL (0.00-0.20); Basophils % (auto) 0.3 %; Eosinophils # (auto) 0.03 K/uL (0.00-0.50); Eosinophils % (auto) 0.8 %; Hematocrit (blood only) 26.8 % (37.0-47.0); Hemoglobin 8.4 g/dl (12.0-16.0); Immature Granulocytes # (auto) 0.06 K/uL (0.01-0.20); Immature Granulocytes % (auto) 1.6 %; Lymphocytes # (auto) 1.38 K/uL (1.20-3.40); Lymphocytes % (auto) 36.6 %; Mean Corpuscular Hemoglobin 28.6 pg (25.0-34.0); Mean Corpuscular Hgb Conc 31.3 g/dL (32.0-36.0); Mean Corpuscular Volume 91.2 fL (80.0-100.0); Mean Platelet Volume 9.8 fL (9.4-12.4); Monocytes # (auto) 0.28 K/uL (0.11-0.59); Monocytes % (auto) 7.4 %; Neutrophils # (auto) 2.01 K/uL (1.40-6.50); Neutrophils % (auto) 53.3 %; Platelet Count 180 K/uL (130-400); RDW Coefficient of Variation 19.4 % (11.5-14.5); RDW Standard Deviation 64.6 fL (36.4-46.3); Red Blood Count 2.94 M/uL (4.20-5.40); White Blood Count 3.77 K/ul (4.8-10.8)
[2025-02-19 07:29] LABS: BUN Creatinine Ratio 9.4 (10-20); Calcium 7.6 mg/dl (8.6-10.3); Creatinine Clr Calc Pharmacy 32.9 ml/min; Potassium 3.5 mmol/L (3.5-5.1)
[2025-02-19] MEDS: APIXABAN 5 MG TABLET PO SCH (07:56)
--- NOTE | 2025-02-19 09:21 | Discharge Summary ---
Date of Service February 19, 2025 Admission HPI Per Admitting Provider 84-year-old female with history of hydronephrosis secondary to nephrolithiasis, ureteral stent placement last September 2024, exchanged January 13, 2025, other problems noted below presenting with Right lower back/flank pain since yesterday. Patient was admitted to [facility] early November 2024 for septic shock secondary to complicated UTI in the setting of nephrolithiasis, ureteral stents. Urine culture grew Klebsiella. She has had multiple episodes of UTI secondary to Klebsiella last year as well. On January 13, 2025, patient underwent a right lithotripsy with ureteral stent exchange by Dr. Joshua. Yesterday she followed up with urology clinic due to urinary symptoms, urine culture obtained, and was sent on cefuroxime. At home, patient's urinary symptoms persisted including back pain. At the ER, patient was admitted with blood pressure of 87/59, heart rate 90s afebrile. CT abdomen and pelvis showed bilateral ureteral stents have migrated slightly proximally compared to the prior exam but the distal pigtails remain within the urinary bladder and there is no hydronephrosis. Urinalysis: Pending Lactic acid normal She was given 1.5 L of IV NSS bolus, cefepime Patient's blood pressure trended down at the ER. Systolic BP 79/44, additional 500cc fluid bolus ordered and Levophed ordered to be started. Patient seen resting in bed, comfortable, not in distress. Reports right sided flank pain, and dysuria. Denies dizziness, chest pain, shortness of breath, nausea. Denies cough, fever and chills, sputum production Admission Exam Per Admitting Provider General- oriented x 3, not in distress, speaks in sentences with no effort or accessory muscle use Head- atraumatic Eyes- PERRL, EOMI, anicteric ENT- oropharynx clear Neck- supple, no JVD, no adenopathy, no thyromegaly; carotids +2/2, no bruits appreciated Lungs- clear to auscultation bilaterally, no rales/wheezes Heart- normal rate, regular rhythm; no murmur, no gallop, no rub appreciated Abdomen- normal bowel sounds, nondistended, soft, nontender, no masses or hepatosplenomegaly Extremities- no pretibial edema, no calf tenderness; peripheral pulses intact Neuro- alert, oriented x 3; CN 2-12 grossly intact; motor 5/5 bilaterally;sensation 100% on all extremities; no other gross focal neurologic deficits Skin- warm & dry Principal Diagnosis Septic shock Recurrent UTI in the setting of nephrolithiasis, ureteral stents Acute on Chronic Anemia hematuria Pulmonary Emboli DVT Pulmonary Infarcts Discharge Exam Constitutional: Alert oriented x 3; not in distress. Respiratory: normal respiratory effort, lungs clear to auscultation, no wheeze, rales, rhonchi. Normal insp/exp effort, no accessory muscle use Cardiovascular: RRR, no murmur, no edema Vessels: no JVD or carotid bruit Chest: normal inspection of chest Abdomen: normal bowel sounds, soft, nontender, no hepatosplenomegaly. Santillan catheter in place draining reddish urine; no clots. Neurologic: PERRL, EOMI, accommodation nl, no face palsy, no dysarthria CN's II- XI intact bilaterally and moves all extremities Psychiatric: A+Ox3, euthymic affect Discharge Data Allergies Allergy/AdvReac Type Severity Reaction Status Date / Time influenza virus vaccine, Allergy Severe [place] Verified 01/29/25 12:51 specific [place] Syndrome Sulfa (Sulfonamide Allergy Unknown Unknown Verified 01/29/25 12:51 Antibiotics) cephalexin AdvReac Mild Nausea Verified 01/29/25 12:51 Consultations 01/29/25 13:04 ED Decision to Admit Stat 01/29/25 14:54 Consult Nephrology Stat 01/29/25 16:16 Consult Building Construction Teacher Routine 01/30/25 10:44 Consult Urology Routine 02/01/25 09:38 Consult Infectious Diseases Routine 02/11/25 17:09 Consult Pulmonology Routine 02/14/25 12:29 Consult Urology Routine 02/15/25 08:30 Consult Hematology Routine Procedures Performed Operation Date: 02/10/25 09:45 Actual Procedures p Cystoscopy, Bilateral: Ureteronephroscopy, Retrograde Pyelogram, Laser Lithotripsy, Basket Extraction of the Stone, (Bilateral) - Guillermo Joshua DO s Exchange of Stent Catheter (Bilateral) - Guillermo Joshua DO Ordered Studies 01/29/25 11:01 CT abd pelvis wo con Stat 01/29/25 13:16 CT chest diagnostic wo con Routine 02/01/25 FL KUB Routine 02/03/25 07:42 US venous doppler LE BI Routine 02/03/25 09:59 CT angio chest PE protocol Urgent 02/09/25 09:11 CT abd pelvis wo con Urgent 02/13/25 08:50 CT abd pelvis wo con Routine Hospital Course (1) Complicated urinary tract infection: (2) Anna tropicalis infection: (3) Right upper lobe pneumonia: (4) Metabolic acidosis: (5) Ureteral stent present: (6) Electrolyte abnormality: (7) Chronic renal failure (CRF), stage 3b: (8) Diarrhea due to drug: (9) Acute retention of urine: Plan 84-yo F with hx of hydronephrosis 2/2 to nephrolithiasis, ureteral stent placement last September 2024, exchanged January 13, 2025, presenting with Right lower back/flank pain. Septic shock Recurrent UTI in the setting of nephrolithiasis, ureteral stents Initially required ICU admission , and pressor support S/p ureteral stent exchange by urology - 02/01/2025, 02/10 Urine cultx posit. for E coli and Anna tropicalis, repeat positive for anna tropicalis only ID consulted, -Pt treated with fluconazole, caspofungin, end date 02/14 -completed ceftriaxone + doxycycline Status post removal of the stent on 02/17 by urology Hematuria resolved after removal of the stent However, hematuria reoccurred again on 02/18. Hemoglobin remained stable around 8-9 Discussed with urology again on 02/18; will remove Santillan to see if it is caused by irritation by catheter After the removal of Santillan catheter on 02/18; patient urine cleared up. Discussed with patient regarding tips about completely emptying the bladder. I discussed that she is at high risks of UTI again given her urological issues. Discussed signs and symptoms of UTI. Patient verbalized understanding. Patient discharged home with instruction to follow-up with PCP Acute on Chronic Anemia hematuria Pulmonary Emboli DVT Pulmonary Infarcts Patient was diagnosed with PE on CTA chest with numerous bilateral pulmonary emboli along with infarction within superior segment of right lower lobe. She was also found to have DVT within bilateral popliteal, posterior tibial and peroneal veins Patient was placed on anticoagulation with Eliquis; noted to have hematuria. Eliquis kept on hold. Hematuria resolved after removal of the Santillan catheter. Patient was discharged on Eliquis 5 mg twice a day. She will need to be on anticoagulation for at least 6 months. Please note the above document was generated using voice recognition software. It may contain grammatical, syntax or spelling errors. Any formal questions or concerns about the content, text or information contained within the body of this dictation should be directly addressed to the provider for clarification Discharge Plan Discharge Items Patient Disposition: Home - Self-Care Reason For Visit: SEPSIS Discharge Diagnosis: Septic shock Recurrent UTI in the setting of nephrolithiasis, ureteral stents Acute on Chronic Anemia hematuria Pulmonary Emboli DVT Pulmonary Infarcts Activity: Resume your previous activity Non-emergency contact: Primary Care Provider Call non-emergency contact if: you have any medication questions and your symptoms worsen Follow-up/Referrals: Guillermo Joshua, [Physician] - 04/12/25 9:30 am ([place]) Indu Ambrocio [Primary Care Provider] - [facility],Nurse [FAKE FOR SCHEDULES] - 03/01/25 8:00 am (catheter removal) Diet: Regular Addtl Attending Provider Instructions: You were admitted to the hospital with infection in your urine. You are treated with antibiotic during the hospitalization which you completed. You were found to have blood clot in your lungs for which you are started on blood thinner with Eliquis 5 mg twice a day. You were found to have appearance of low blood pressure; please keep yourself hydrated. You are prescribed midodrine 2.5 to be taken 3 times a day. Please take it at 8 AM, 2 p.m. and 5 p.m. Please take it at upright position. Follow-up with PCP and urology as outpatient. Addtl Casing Material Weigher Provider Instructions: Please take all medications as prescribed and keep all follow-ups as scheduled. Please call our office at [phone] with any questions, concerns or need to reschedule appointments for any reason. We are happy to assist you. When to call [facility] Urology at [phone]: Your urine contains heavy blood clots You are constantly leaking urine Fever of 101F or higher, chills, nausea, or vomiting Your pain is not relieved with medication The end of the stent comes out of your urethra Pending Studies at Discharge: No Stand-Alone Forms: [employer] Work/School Release, Smoking Cessation Medications and DC Order Prescriptions: New Eliquis 5 mg tablet 5 mg PO BID Qty: 60 0RF midodrine 2.5 mg Tablet 2.5 mg PO TID@0800,1200,1700 30 Days Qty: 90 0RF Continued cyanocobalamin (vitamin B-12) [Vitamin B-12] 500 mcg Tablet 500 mcg PO QAM ferrous sulfate [iron] 325 mg (65 mg iron) Tablet 325 mg PO QDL cranberry extract [Cranberry Concentrate] 500 mg capsule 500 mg PO QAM raloxifene 60 mg tablet 60 mg PO QAM acetaminophen 500 mg tablet 1,000 mg PO Q8 PRN (Reason: Pain) Align (B.infantis) 4 mg Capsule 4 mg PO QDL loperamide 2 mg Capsule 2 mg PO Q6H PRN (Reason: loose stool) Qty: 30 0RF mirtazapine 7.5 mg Tablet 7.5 mg PO HS cholecalciferol (vitamin D3) [Vitamin D3] 25 mcg (1,000 unit) Tablet 25 mcg PO QDL Changed potassium chloride 10 mEq tablet extended release 20 meq PO BIDWMEAL Qty: 0 0RF Admission Data Admit Date/Time: 01/29/25 14:21 Attending Provider: Parvez Villarreal Admit Provider: Angelo Sherman Primary Care Provider: Indu Ambrocio Other Providers: Khari Neves [facility]; [facility]; Roger Patrick Robin A.; Luan Sumner; Zarina Gonzalez; Lali Michaels
--- NOTE | 2025-02-19 14:47 | Hospitalist Progress Note ---
Date of Service February 19, 2025 Assessment & Plan (1) Complicated urinary tract infection: (2) Tatum tropicalis infection: (3) Right upper lobe pneumonia: (4) Metabolic acidosis: (5) Ureteral stent present: (6) Electrolyte abnormality: (7) Chronic renal failure (CRF), stage 3b: (8) Diarrhea due to drug: (9) Acute retention of urine: Plan 84-yo F with hx of hydronephrosis 2/2 to nephrolithiasis, ureteral stent placement last September 2024, exchanged January 13, 2025, presenting with Right lower back/flank pain. Septic shock Recurrent UTI in the setting of nephrolithiasis, ureteral stents Initially required ICU admission , and pressor support S/p ureteral stent exchange by urology - 02/01/2025, 02/10 History of recurrent Klebsiella UTI, most recent November 2024 Similar presentation back in November 2024 Urine cultx posit. for E coli and Tatum tropicalis, repeat positive for tatum tropicalis only ID consulted, appreciate recs -Pt is on fluconazole, caspofungin, end date 02/14 -completed ceftriaxone + doxycycline Status post removal of the stent on 02/17 by urology Hematuria resolved after removal of the stent However, hematuria reoccurred again on 02/18. Hemoglobin remained stable around 8-9 Repeat blood culture ordered Discussed with urology again on 02/18; will remove Santillan to see if it is caused by irritation by catheter Hematuria improved with removal of catheter; however reoccurred in a.m. again on 02/19. Discussed with patient and patient's daughter; patient's hematuria has gradually improved; hemoglobin is around 8-9 for several days. Plan is to monitor for 1 more day and possible discharge in a.m. with follow-up with urology and PCP. Acute on Chronic Anemia hematuria Pulmonary Emboli DVT Pulmonary Infarcts Patient was diagnosed with PE on CTA chest with numerous bilateral pulmonary emboli along with infarction within superior segment of right lower lobe. She was also found to have DVT within bilateral popliteal, posterior tibial and peroneal veins Patient was placed on anticoagulation with Eliquis; noted to have hematuria. Eliquis kept on hold. Heparin was restarted with monitoring of hematuria; hemoglobin remained stable around 8-9. 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 It may contain grammatical, syntax or spelling errors. Any formal questions or concerns about the content, text or information contained within the body of this dictation should be directly addressed to the provider for clarification Admission and Anticipated Discharge Date Admission Date: January 29, 2025 Subjective Patient seen and examined at bedside. She is comfortable; denies any pain or discomfort. Has been voiding well Recurrence of hematuria again Review of Systems Review of Systems: All systems reviewed & are unremarkable except as noted in Subjective Physical Exam Physical Exam: Constitutional: Alert oriented x 3; not in distress. Respiratory: normal respiratory effort, lungs clear to auscultation, no wheeze, rales, rhonchi. Normal insp/exp effort, no accessory muscle use Cardiovascular: RRR, no murmur, no edema Vessels: no JVD or carotid bruit Chest: normal inspection of chest Abdomen: normal bowel sounds, soft, nontender, no hepatosplenomegaly. Santillan catheter in place draining reddish urine; no clots. Neurologic: PERRL, EOMI, accommodation nl, no face palsy, no dysarthria CN's II- XI intact bilaterally and moves all extremities Psychiatric: A+Ox3, euthymic affect Results & Data Results & Data Vital Signs (Past 12 Hours) Vital Signs Temp Pulse Pulse Resp BP Pulse Ox O2 Del Method 02/19/25 12:06 36.7 C 85 19 121/79 95 Room Air 02/19/25 09:00 66 02/19/25 07:59 36.7 C 63 19 90/57 L 97 Room Air 02/19/25 03:37 36.4 C L 66 16 95/56 L 97 Room Air
[2025-02-19 19:02] LABS: Component 2 DNR; Source KIDNEY
[2025-02-20 06:39] LABS: Basophils # (auto) 0.01 K/uL (0.00-0.20); Basophils % (auto) 0.3 %; Eosinophils # (auto) 0.02 K/uL (0.00-0.50); Eosinophils % (auto) 0.5 %; Hematocrit (blood only) 28.1 % (37.0-47.0); Hemoglobin 8.7 g/dl (12.0-16.0); Immature Granulocytes # (auto) 0.04 K/uL (0.01-0.20); Immature Granulocytes % (auto) 1.1 %; Lymphocytes # (auto) 1.62 K/uL (1.20-3.40); Lymphocytes % (auto) 43.8 %; Mean Corpuscular Hemoglobin 28.3 pg (25.0-34.0); Mean Corpuscular Volume 91.5 fL (80.0-100.0); Mean Platelet Volume 9.5 fL (9.4-12.4); Monocytes # (auto) 0.25 K/uL (0.11-0.59); Monocytes % (auto) 6.8 %; Neutrophils # (auto) 1.76 K/uL (1.40-6.50); Neutrophils % (auto) 47.5 %; Platelet Count 185 K/uL (130-400); RDW Coefficient of Variation 19.3 % (11.5-14.5); RDW Standard Deviation 65.1 fL (36.4-46.3); Red Blood Count 3.07 M/uL (4.20-5.40)
[2025-02-20 07:15] LABS: BUN Creatinine Ratio 9.9 (10-20); Calcium 7.7 mg/dl (8.6-10.3); Creatinine Clr Calc Pharmacy 31.1 ml/min; Potassium 3.7 mmol/L (3.5-5.1)
[2025-02-20 08:16] VITALS: RESP 18; TEMP 97.7
[2025-02-20 09:52] LABS: Appearance Urine Cloudy (Clear); Bacteria Urine Automated 4+ (None Seen); Bilirubin Urine Negative (Negative); Blood Urine 3+ (Negative); Color Urine Yellow; Epithelial Cell Urine Auto 0-2 /hpf (0-2); Glucose Urine UA Negative (Negative); Ketones Urine Negative (Negative); Leukocyte Esterase Urine 2+ (Negative); Nitrite Urine Negative (Negative); Protein Urine 1+ (Negative); Specific Gravity Urine 1.008 (1.000-1.030); Urobilinogen Urine Negative (Negative); pH Urine 5.5 (4.5-7.5)
[2025-02-20 10:01] LABS: Amorphous Sediment Urine Present (None Prsent); Cast Urine Automated 0-2 /lpf (0-2)
[2025-02-20 10:02] LABS: Calcium Oxalate Crystals Urine Present (None Prsent)
[2025-02-20 12:34] VITALS: O2SAT 97
[2025-02-20 12:58] VITALS: BP 111/76; PULSE 102
--- NOTE | 2025-02-20 13:42 | Discharge Summary ---
Date of Service February 20, 2025 Admission HPI Per Admitting Provider 84-year-old female with history of hydronephrosis secondary to nephrolithiasis, ureteral stent placement last September 2024, exchanged January 13, 2025, other problems noted below presenting with Right lower back/flank pain since yesterday. Patient was admitted to [facility] early November 2024 for septic shock secondary to complicated UTI in the setting of nephrolithiasis, ureteral stents. Urine culture grew Klebsiella. She has had multiple episodes of UTI secondary to Klebsiella last year as well. On January 13, 2025, patient underwent a right lithotripsy with ureteral stent exchange by Dr. Joshua. Yesterday she followed up with urology clinic due to urinary symptoms, urine culture obtained, and was sent on cefuroxime. At home, patient's urinary symptoms persisted including back pain. At the ER, patient was admitted with blood pressure of 87/59, heart rate 90s afebrile. CT abdomen and pelvis showed bilateral ureteral stents have migrated slightly proximally compared to the prior exam but the distal pigtails remain within the urinary bladder and there is no hydronephrosis. Urinalysis: Pending Lactic acid normal She was given 1.5 L of IV NSS bolus, cefepime Patient's blood pressure trended down at the ER. Systolic BP 79/44, additional 500cc fluid bolus ordered and Levophed ordered to be started. Patient seen resting in bed, comfortable, not in distress. Reports right sided flank pain, and dysuria. Denies dizziness, chest pain, shortness of breath, nausea. Denies cough, fever and chills, sputum production Admission Exam Per Admitting Provider General- oriented x 3, not in distress, speaks in sentences with no effort or accessory muscle use Head- atraumatic Eyes- PERRL, EOMI, anicteric ENT- oropharynx clear Neck- supple, no JVD, no adenopathy, no thyromegaly; carotids +2/2, no bruits appreciated Lungs- clear to auscultation bilaterally, no rales/wheezes Heart- normal rate, regular rhythm; no murmur, no gallop, no rub appreciated Abdomen- normal bowel sounds, nondistended, soft, nontender, no masses or hepatosplenomegaly Extremities- no pretibial edema, no calf tenderness; peripheral pulses intact Neuro- alert, oriented x 3; CN 2-12 grossly intact; motor 5/5 bilaterally;sensation 100% on all extremities; no other gross focal neurologic deficits Skin- warm & dry Principal Diagnosis Septic shock Recurrent UTI in the setting of nephrolithiasis, ureteral stents Acute on Chronic Anemia hematuria Pulmonary Emboli DVT Pulmonary Infarcts Discharge Exam Constitutional: Alert oriented x 3; not in distress. Respiratory: normal respiratory effort, lungs clear to auscultation, no wheeze, rales, rhonchi. Normal insp/exp effort, no accessory muscle use Cardiovascular: RRR, no murmur, no edema Vessels: no JVD or carotid bruit Chest: normal inspection of chest Abdomen: normal bowel sounds, soft, nontender, no hepatosplenomegaly. Santillan catheter in place draining reddish urine; no clots. Neurologic: PERRL, EOMI, accommodation nl, no face palsy, no dysarthria CN's II- XI intact bilaterally and moves all extremities Psychiatric: A+Ox3, euthymic affect Discharge Data Allergies Allergy/AdvReac Type Severity Reaction Status Date / Time influenza virus vaccine, Allergy Severe Gillean Verified 01/29/25 12:51 specific Pollock Syndrome Sulfa (Sulfonamide Allergy Unknown Unknown Verified 01/29/25 12:51 Antibiotics) cephalexin AdvReac Mild Nausea Verified 01/29/25 12:51 Consultations 01/29/25 13:04 ED Decision to Admit Stat 01/29/25 14:54 Consult Nephrology Stat 01/29/25 16:16 Consult Apartment Leasing Manager Routine 01/30/25 10:44 Consult Urology Routine 02/01/25 09:38 Consult Infectious Diseases Routine 02/11/25 17:09 Consult Pulmonology Routine 02/14/25 12:29 Consult Urology Routine 02/15/25 08:30 Consult Hematology Routine Procedures Performed Operation Date: 02/10/25 09:45 Actual Procedures p Cystoscopy, Bilateral: Ureteronephroscopy, Retrograde Pyelogram, Laser Lithotripsy, Basket Extraction of the Stone, (Bilateral) - Guillermo Joshua DO s Exchange of Stent Catheter (Bilateral) - Guillermo Joshua DO Ordered Studies 01/29/25 11:01 CT abd pelvis wo con Stat 01/29/25 13:16 CT chest diagnostic wo con Routine 02/01/25 FL KUB Routine 02/03/25 07:42 US venous doppler LE BI Routine 02/03/25 09:59 CT angio chest PE protocol Urgent 02/09/25 09:11 CT abd pelvis wo con Urgent 02/13/25 08:50 CT abd pelvis wo con Routine Hospital Course (1) Complicated urinary tract infection: (2) Anna tropicalis infection: (3) Right upper lobe pneumonia: (4) Metabolic acidosis: (5) Ureteral stent present: (6) Electrolyte abnormality: (7) Chronic renal failure (CRF), stage 3b: (8) Diarrhea due to drug: (9) Acute retention of urine: Plan 84-yo F with hx of hydronephrosis 2/2 to nephrolithiasis, ureteral stent placement last September 2024, exchanged January 13, 2025, presenting with Right lower back/flank pain. Septic shock Recurrent UTI in the setting of nephrolithiasis, ureteral stents Initially required ICU admission , and pressor support S/p ureteral stent exchange by urology - 02/01/2025, 02/10 History of recurrent Klebsiella UTI, most recent November 2024 Similar presentation back in November 2024 Urine cultx posit. for E coli and Anna tropicalis, repeat positive for anna tropicalis only ID consulted, paulo recs -Pt is on fluconazole, caspofungin, end date 02/14 -completed ceftriaxone + doxycycline Status post removal of the stent on 02/17 by urology Hematuria resolved after removal of the stent However, hematuria reoccurred again on 02/18. Hemoglobin remained stable around 8-9 Repeat blood culture ordered Discussed with urology again on 02/18; will remove Santillan to see if it is caused by irritation by catheter Hematuria improved with removal of catheter; however reoccurred in a.m. again on 02/19. Patient was monitored for 24 hours more; hematuria resolved again. Patient reported that she is frustrated being in the hospital and wanted to go home. Patient denied any signs or symptoms of UTI including fever, chills, suprapubic pain, hematuria, increased urgency. She was given empiric antibiotic for 5 days. Patient to follow-up with PCP and urology. Plan of care was discussed with patient and patient's daughter over the phone. Acute on Chronic Anemia hematuria Pulmonary Emboli DVT Pulmonary Infarcts Patient was diagnosed with PE on CTA chest with numerous bilateral pulmonary emboli along with infarction within superior segment of right lower lobe. She was also found to have DVT within bilateral popliteal, posterior tibial and peroneal veins Patient was placed on anticoagulation with Eliquis; noted to have hematuria. Eliquis kept on hold. Heparin was restarted with monitoring of hematuria; hemoglobin remained stable around 8-9. Switched over to Eliquis 5 mg twice a day at the time of discharge. Midodrine was started for low BP at the time of discharge. Please note the above document was generated using voice recognition software. It may contain grammatical, syntax or spelling errors. Any formal questions or concerns about the content, text or information contained within the body of this dictation should be directly addressed to the provider for clarification Total Time Total Time Spent Total Time Spent (In Minutes): 45 Total Time Includes: Examination of the Patient, Discharge Planning, Medication Reconciliation, Communication With Other Providers and Other Discharge Plan Discharge Items Patient Disposition: Home - Self-Care Reason For Visit: SEPSIS Discharge Diagnosis: Septic shock Recurrent UTI in the setting of nephrolithiasis, ureteral stents Acute on Chronic Anemia hematuria Pulmonary Emboli DVT Pulmonary Infarcts Activity: Resume your previous activity Non-emergency contact: Primary Care Provider Call non-emergency contact if: you have any medication questions and your symptoms worsen Follow-up/Referrals: Guillermo Joshua DO [Physician] - 04/12/25 9:30 am ([place]) Indu Ambrocio [Primary Care Provider] - [facility],Nurse [FAKE FOR SCHEDULES] - 03/01/25 8:00 am (catheter removal) Diet: Regular Addtl Attending Provider Instructions: You were admitted to the hospital with infection in your urine. You are treated with antibiotic during the hospitalization which you completed. You were found to have blood clot in your lungs for which you are started on blood thinner with Eliquis 5 mg twice a day. You were found to have appearance of low blood pressure; please keep yourself hydrated. You are prescribed midodrine 2.5 to be taken 3 times a day. Please take it at 8 AM, 12 p.m. and 5 p.m. Please take it at upright position. Follow-up with PCP and urology as outpatient. Please take antibiotics for 5 days. Addtl Dental Assistant Provider Instructions: Please take all medications as prescribed and keep all follow-ups as scheduled. Please call our office at [phone] with any questions, concerns or need to reschedule appointments for any reason. We are happy to assist you. When to call [facility] at [phone]: Your urine contains heavy blood clots You are constantly leaking urine Fever of 101F or higher, chills, nausea, or vomiting Your pain is not relieved with medication The end of the stent comes out of your urethra Pending Studies at Discharge: No Stand-Alone Forms: My [facility], Work/School Release, Smoking Cessation Medications and DC Order Prescriptions: New Eliquis 5 mg tablet 5 mg PO BID Qty: 60 0RF midodrine 2.5 mg Tablet 2.5 mg PO TID@0800,1200,1700 30 Days Qty: 90 0RF amoxicillin-pot clavulanate 875-125 mg tablet 1 tab PO BID 5 Days Qty: 10 0RF Continued cyanocobalamin (vitamin B-12) [Vitamin B-12] 500 mcg Tablet 500 mcg PO QAM ferrous sulfate [iron] 325 mg (65 mg iron) Tablet 325 mg PO QDL cranberry extract [Cranberry Concentrate] 500 mg capsule 500 mg PO QAM raloxifene 60 mg tablet 60 mg PO QAM acetaminophen 500 mg tablet 1,000 mg PO Q8 PRN (Reason: Pain) Align (B.infantis) 4 mg Capsule 4 mg PO QDL loperamide 2 mg Capsule 2 mg PO Q6H PRN (Reason: loose stool) Qty: 30 0RF mirtazapine 7.5 mg Tablet 7.5 mg PO HS cholecalciferol (vitamin D3) [Vitamin D3] 25 mcg (1,000 unit) Tablet 25 mcg PO QDL Changed potassium chloride 10 mEq tablet extended release 20 meq PO BIDWMEAL Qty: 0 0RF Discharge Orders: Discharge Order (Routine); Ordered 02/20/25 Ordered By: Parvez Villarreal Admission Data Admit Date/Time: 01/29/25 14:21 Attending Provider: Parvez Villarreal Admit Provider: Angelo Sherman Primary Care Provider: Indu Ambrocio Other Providers: Khari Neves [facility]; [facility]; Roger Patrick; Angelo Sherman; Luan Sumner; Zarina Gonzalez; Ajala,Lali Other Interventions: Discharge Summary Assessment (RN) Last Done: 02/20/25 12:56
[2025-02-21 20:22] LABS: Component 2 DNR; Source URETER
--- NOTE | 2025-02-22 07:05 | Coding Query ---
CODING QUERY To promote full compliance with coding requirements relating to patient care, provider participation is requested in all cases of certified medical coder uncertainty. Please assist us with the question(s) below: Coding Question(s): In the record, it states that the patient has an UTI. Please clarify below the most likely cause of the UTI if applicable. Thank you. ( x) UTI, unspecified cause. ( ) ureteral stent was the most likely cause of the UTI. ( ) recent procedure for stent exchange was the most likely cause of UTI ( ) Other most likely cause of UTI: Please Specify age, post menopausal status, prior procedures. I do not think the stents were the cause of the UTI, but they were exchanged with the hope of improving our opportunity to treat the infection Physician's Response(s): Thank you Feli Barrera Principal Diagnosis: "that condition established after study, to be chiefly responsible for occasioning the admission of the patient to the hospital for care." Co-Existing Principal Diagnosis: "when two or more diagnoses equally meet the criteria for principal diagnosis as determined by the circumstances of admission, diagnostic work up, and/or therapy provided, and the Alphabetic Index, Tabular List, or another coding guideline does not provide sequencing direction, any one of the diagnoses may be sequenced first." "When the physician has documented what appears to be a current diagnosis in the body of the record, but has not included the diagnosis in the final diagnostic statement, the physician should be asked whether the diagnosis should be added." (Source Coding Clinic 2 QTR90. p3-4) MEGAN
== END 2025-02-20 14:15 | disposition home health service (06) | DRG 853 ==
LOC: ED 09:58 → SUATTDRO 14:21 → 1E 14:21 → 2S 02-01 17:40